=== PATIENT | female | born 1950 | race Caucasian/White ===

== ENCOUNTER 2017-12-26 19:54 | Emergency (ER) | payer MEDICARE ==
[2017-12-26 20:00] VITALS: BP 137/75; PULSE 100; TEMP 98.2; BMI 51.5
--- NOTE | 2017-12-26 21:04 | PDOC ---
History of Present Illness - General Chief Complaint: Injury Stated Complaint: FALL, REDNESS TO EYE - History of Present Illness Initial Comments: 67 year old obese female with PMH of HTM, diabetes, HLD, and arthritis presenting with left eye redness after a fall when she was walking in the bathroom with her cane and slipped on some water. States she was going to wash her hands and planted her cane on the floor on some water which caused her to slip and hit her left face/ head on the side of the metal sink. She did not lose consciousness and she was assisted up by her daughter. She noticed that there was a lot of redness in her eye so her daughter took a look and brought her to the hospital for further evaluation. She has no visual symptoms including floaters or blurriness. Does not take blood thinners. Denies fevers, chills, nausea, vomiting, diarrhea, light headedness, chest pain, palpiations, diaphoreissi, or other concerning symptoms. 12/26/17 21:02 Past History - Past Medical History Allergies/Adverse Reactions: Allergies Allergy/AdvReac Type Severity Reaction Status Date / Time No Known Allergies Allergy Verified 12/26/17 20:00 Home Medications: Ambulatory Orders Ofloxacin 0.3% Ophth Soln [Ocuflox -] 1 drop OS QID 4 Days #1 bottle 12/27/17 Asthma: Yes Cardiac Disorders: Yes (CHF) COPD: Yes Diabetes: Yes HTN: Yes Hypercholesterolemia: Yes - Suicide/Smoking/Psychosocial Hx Smoking History: Never smoked Review of Systems - Review of Systems Constitutional: No: Chills, Diaphoresis, Fever HEENTM: No: Eye Pain, Blurred Vision, Tearing, Recent change in vision, Double Vision, Cataracts Respiratory: No: Cough, Orthopnea, Shortness of Breath, Stridor Cardiac (ROS): No: Chest Pain, Edema, Irregular Heart Rate, Lightheadedness, Palpitations, Syncope, Chest Tightness ABD/GI: No: Diarrhea, Nausea, Poor Appetite : No: Burning, Dysuria, Discharge, Incontinence, Pain, Urgency Musculoskeletal: Yes: Joint Pain. No: Back Pain, Gout Integumentary: No: Erythema, Flushing, Lesions, Lumps Neurological: No: Headache, Numbness, Paresthesia, Pre-Existing Deficit, Tingling Psychiatric: No: Anxiety, Depression Endocrine: No: Intolerance to Cold, Intolerance to Heat, Increased Hunger Hematologic/Lymphatic: No: Anemia, Blood Clots, Easy Bleeding *Physical Exam - Vital Signs Last Vital Signs Temp Pulse Resp BP Pulse Ox 98.2 F 100 H 18 137/75 84 L 12/26/17 19:57 12/26/17 19:57 12/26/17 19:57 12/26/17 19:57 12/26/17 19:57 - Physical Exam General Appearance: Yes: Nourished, Appropriately Dressed. No: Apparent Distress HEENT: positive: EOMI, LOC. negative: Normal ENT Inspection (subconjuctival hemorrhage int he left eye. Visual Acutiy 20/70 bilaterally. Slit lamp examp with flourescein only significant for inferoir conreal abrasion.) Neck: positive: Trachea midline, Normal Thyroid, Supple. negative: Tender, Rigid Respiratory/Chest: positive: Lungs Clear, Normal Breath Sounds. negative: Chest Tender, Respiratory Distress, Accessory Muscle Use Cardiovascular: positive: Regular Rhythm, Regular Rate Gastrointestinal/Abdominal: positive: Normal Bowel Sounds, Flat, Soft. negative : Tender Lymphatic: negative: Adenopathy, Tenderness Musculoskeletal: positive: Normal Inspection. negative: Decreased Range of Motion Extremity: positive: Normal Capillary Refill, Normal Inspection, Normal Range of Motion. negative: Tender Integumentary: positive: Normal Color, Dry, Warm Neurologic: positive: Fully Oriented, Alert, Normal Mood/Affect, Normal Response , Motor Strength 5/5 ED Treatment Course - RADIOLOGY Radiology Studies Ordered: Category Date Time Status HEAD CT WITH CONTRAST [CT] Stat CT Scan 12/26/17 20:59 Ordered Medical Decision Making - Medical Decision Making 67 year old with subconjunctival hemorrhage and inferior corneal abrasion on slit lamp without globe rupture after falling and hitting her face/ head on a sink in the setting of a mechanical trip/ fall. Head Ct negative. Slit lamp only significant for above. Will DC with polymixin eye drops and optho follow up. DC'd with return precautions and follow up instructions. 12/27/17 00:38 *DC/Admit/Observation/Transfer Diagnosis at time of Disposition: Corneal abrasion Qualifiers: Encounter type: initial encounter Laterality: right Qualified Code(s): S05.01XA - Injury of conjunctiva and corneal abrasion without foreign body, right eye, initial encounter - Discharge Dispostion Disposition: HOME Condition at time of disposition: Improved Decision to Admit order: No - Prescriptions Prescriptions: Ofloxacin 0.3% Ophth Soln [Ocuflox -] 1 drop OS QID 4 Days #1 bottle - Referrals Referrals: Niko Morocho [Primary Care Provider] - Allan Jarquin MD [Staff Physician] - - Patient Instructions Printed Discharge Instructions: DI for Corneal Abrasion Additional Instructions: Please use the eye drops 1 drop in your left eye 4 times a day for 5 days. Please make an appointment with the workforce planner as early as possible. Please return to the ED if you have pain in that eye, visual changes, or any other concerning symptoms. The redness should get better within a week. - Post Discharge Activity
--- NOTE | 2017-12-27 01:00 | PDOC ---
Attending Attestation - Resident Resident Name: [email or web address] - ED Attending Attestation I have performed the following: I have examined & evaluated the patient, The case was reviewed & discussed with the resident, I agree w/resident's findings & plan, Exceptions are as noted - HPI HPI: 12/27/17 00:56 67-year-old female history hypertension diabetes who today status post fall. Patient states she was walking with a cane the cane slipped on water she subsequent relief fell she hit her face on the corner of a dresser happened about 4 AM she noted some left eye redness and hemorrhage denies any vision changes no nausea no vomiting no headaches she didn't want to come initially but her family convinced her to come for evaluation denies any new weakness numbness or tingling did not take anything prior to arrival - Physicial Exam PE: 12/27/17 00:58 Awake alert no acute distress left eye is noted for some conjunctival hemorrhage over majority of the visible portion of the eye pupils are regular and reactive extraocular motions are intact. Oral Brill exam shows no bony step- off or tenderness the head is otherwise atraumatic no cervical spine tenderness lungs are clear bilaterally heart demonstrates a systolic murmur 2/6 regular rate and rhythm extremities are warm and well-perfused abdomen is soft nontender and obese neurologically patient has GCS of 15 - Medical Decision Making 12/27/17 00:59 Differential diagnosis includes subconjunctival hemorrhage versus corneal abrasion patient was evaluated in the slit-lamp she was noted to have a large subconjunctival hemorrhage in the left eye there is a small punctate area in the inferior portion of the iris with foreseen uptake consistent with a corneal abrasion otherwise her exam is atraumatic we will obtain a CT head to rule out any intracranial injuries CT head was negative will DC home with Polytrim eyedrops and ophthalmology follow-up as needed patient states her last tetanus was 2 years ago
== END 2017-12-27 02:00 | disposition home or self-care (01) ==
LOC: JER 19:54
DX: S05.01XA Injury of conjunctiva and corneal abrasion without foreign body, right eye, initial encounter (principal); W01.0XXA Fall on same level from slipping, tripping and stumbling without subsequent striking against object, initial encounter; Y93.89 Activity, other specified; Y92.031 Bathroom in apartment as the place of occurrence of the external cause; Y99.8 Other external cause status; I10 Essential (primary) hypertension; E11.9 Type 2 diabetes mellitus without complications; E78.5 Hyperlipidemia, unspecified; M12.9 Arthropathy, unspecified
CPT/HCPCS: 70450-TC; 99281-25

== ENCOUNTER 2018-03-27 19:41 | Inpatient (IN) | payer MEDICARE, OTHER ==
--- NOTE | 2018-03-27 19:48 | PDOC ---
Attending Attestation - HPI HPI: 03/27/18 20:01 The patient is a 67-year-old female with a past medical history of asthma, CHF, COPD, HTN, DM, and HLD presenting with shortness of breath and bilateral pitting edema for the past 2 days. Patient is on 20 of Lasix PO daily, but admits to being noncompliant with her meds. Patient also admits to not following up with her PCP. Patient denies chest pain, palpitations, dizziness, headache, vision changes, numbness/weakness/tingling in her extremities, N/V/D, or urinary symptoms. Allergies: NKDA Surgeries: None reported Social Hx: No reported alcohol, drug or cigarette use. - Physicial Exam PE: 03/27/18 22:25 ADULT EXAM GENERAL: Awake, alert, and fully oriented, afebrile. (+) morbidly obese. (+) somnolent. on BiPAP. HEAD: No signs of trauma EYES: PERRLA, EOMI, sclera anicteric, conjunctiva clear ENT: Auricles normal inspection, hearing grossly normal, nares patent, oropharynx clear without exudates. (+) Dry mucosa. NECK: Normal ROM, supple, no lymphadenopathy, JVD, or masses LUNGS: (+) patchy wheezing at the top. HEART: Regular rate and rhythm, normal S1 and S2, no murmurs, rubs or gallops ABDOMEN: Soft, nontender, normoactive bowel sounds. No guarding, no rebound. No masses EXTREMITIES: (+) 4+ pitting edema up to the thighs bilaterally. NEUROLOGICAL: (+) altered mental status. SKIN: Warm, Dry, normal turgor. <Zuleyma Matute - Last Filed: 03/27/18 22:35> - Resident Resident Name: Julianna Moran - ED Attending Attestation I have performed the following: I have examined & evaluated the patient, The case was reviewed & discussed with the resident, I agree w/resident's findings & plan - HPI HPI: 03/27/18 19:48 SOB - Critical Care Time Total Critical Care Time: 60 Critical Care Statement: The care of this patient involved high complexity decision making to prevent further life threatening deterioration of the patient 's condition and/or to evaluate & treat vital organ system(s) failure or risk of failure. - Medical Decision Making 03/27/18 22:32 Pt is altered mental status; decreased mentation secondary to SOB and hypoxia. She comea originally with a blood pH of 7.18; she has a hx of COPD and morbid obesity. Her son tells me that she refuses to use her cpap; however, he doesn't live with her; she lives with an aide. She has been looking unwell progressively since last week. Son decided to bring her in today via ambulance, as she is SOB and altered. <Funmi Abdullahi - Last Filed: 03/28/18 04:32> Procedures - Intubation Intubation Method: orotracheal Blade used: Glidescope Tube Size (Fr): 7.5 Medications: Etomidate, Ketamine Tube position @ lip (cm): 22 Tube position confirmed by: Direct visualization, CO2 detector, Chest x-ray, Breath sounds Breath Sounds after Intubation: equal Intubation Complications: no complications Post Intubation Xray: Yes <Funmi Abdullahi - Last Filed: 03/28/18 04:32>
--- NOTE | 2018-03-27 19:55 | PDOC ---
History of Present Illness - General Stated Complaint: S.O.B Time Seen by Provider: 03/27/18 19:47 History Source: Patient Exam Limitations: No Limitations - History of Present Illness Initial Comments: 03/27/18 19:58 67YOF with h/o CHF on Lasix 20 mg PO daily and O2 prn at home, COPD, morbid obesity, LEONIDES on CPAP, IDDM, HTN, HLD; p/w SOB, leg swelling, and feeling of fluid in her lungs in the setting of nonadherence to her Lasix and other medications. She has been feeling this way increasingly over the past 2 weeks, saw her PCP shortly after the onset of sxs, was given amoxicillin Rx which she took for 3 days about a week ago without improvement. The son notes this has happened multiple times before and always seems happen when she stops taking her medications (she stops because she does not like getting up to urinate). Denies f/c/n/v/d/c, CP, AP, n/t/w, lightheadedness, REYES, or other symptoms. Past History - Past Medical History Allergies/Adverse Reactions: Allergies Allergy/AdvReac Type Severity Reaction Status Date / Time No Known Allergies Allergy Verified 03/27/18 19:54 Home Medications: Ambulatory Orders Ofloxacin 0.3% Ophth Soln [Ocuflox -] 1 drop OS QID 4 Days #1 bottle 12/27/17 Albuterol Sulfate Inhaler - [Ventolin Hfa Inhaler -] 2 inh PO Q4H PRN 03/27/18 Atorvastatin Ca [Lipitor] 20 mg PO HS 03/27/18 Fluticasone/Salmeterol [Advair 250-50 Diskus] 1 each IH BID 03/27/18 Furosemide [Lasix] 20 mg PO DAILY 03/27/18 Insulin Glargine,Hum.rec.anlog [Basaglar Kwikpen U-100] 20 unit SQ DAILY Losartan Potassium 25 mg PO DAILY 03/27/18 metFORMIN HCL [Metformin HCl] 500 mg PO HS 03/27/18 Asthma: Yes Cardiac Disorders: Yes (CHF) COPD: Yes Diabetes: Yes HTN: Yes Hypercholesterolemia: Yes - Immunization History Immunization Up to Date: Yes - Suicide/Smoking/Psychosocial Hx Smoking History: Never smoked Review of Systems - Review of Systems Able to Perform ROS?: Yes Comments:: 03/27/18 20:03 GEN: no fever, chills, malaise, or generalized weakness HEENT: no ear pain, sore throat, vision change, or eye pain CV: edema, no chest pain, palpitations, lightheadedness, or syncope RESP: cough, wheezing, SOB GI: no abdominal pain, nausea, vomiting, diarrhea, constipation, or white/black/ bloody stool : no dysuria, hematuria, incontinence, retention, bleeding, or discharge MSK: no neck/back pain, muscle weakness/pain, or joint swelling/pain NEURO: no headache, seizure, vertigo, numbness, tingling, or focal weakness PSYCH: no substance use, no behavior change SKIN: no jaundice, no rash ROS otherwise negative except as noted in HPI *Physical Exam - Vital Signs Initial Vital Signs Pulse Resp BP Pulse Ox 121 H 30 H 140/62 75 L 03/27/18 19:51 03/27/18 19:51 03/27/18 19:51 03/27/18 19:51 - Physical Exam Comments: 03/27/18 20:04 GENERAL: alert, on non-rebreather, tachypneic, speaking in 2-3 word sentences, family at bedside, morbid obesity noted, mild distress, answers questions appropriately HEENT: PERRLA, EOMI, moist mucous membranes NECK/BACK: no midline ttp, no spinal stepoff or deformity, no hematoma, full ROM , neck supple CARDIOVASCULAR: rapid regular rhythm, normal S1S2, no MGR, strong peripheral pulses, capillary refill <2 seconds, extremities wwp, 2+ pitting edema BLE LUNGS/RESPIRATORY: mild-moderate respiratory distress, diffuse bilateral crackles, mild bilateral expiratory wheezes and rhonchi, mildly decreased breath sounds, on non-rebreather GI/ABDOMEN: symmetric [id number], normoactive BS, soft, no ttp, no midline pulsatile masses : no CVA tenderness EXTREMITIES: no muscle atrophy, no acute deformity, 2+ pitting edema BLE SKIN: BLE lipodermatosclerosis, warm and dry, no pallor, no jaundice, no rash, no bruising, no skin breakdown, no cuts, no lesions NEUROLOGICAL: GCS 15, CN II-XII grossly intact, 5/5 strength proximally and distally, no facial droop Procedures - Intubation Intubation Method: orotracheal Blade used: Glidescope Tube Size (Fr): 7.5 Medications: Etomidate, Succinylcholine Tube position @ lip (cm): 22 (at the teeth) Tube position confirmed by: Direct visualization, CO2 detector, Chest x-ray, Breath sounds Breath Sounds after Intubation: equal Intubation Complications: no complications Post Intubation Xray: Yes Progress/Xray Impression: good position Heart Score/ECG Review #1 Sinus tach, rate 107, normal axis and intervals, biatrial enlargement, no new ischemic ST-T changes. ED Treatment Course - LABORATORY CBC & Chemistry Diagram: 04/03/18 06:30 04/03/18 06:30 Medical Decision Making - Critical Care Time Total Critical Care Time (minutes): 90 Critical Care Statement: The care of this patient involved high complexity decision making to prevent further life threatening deterioration of the patient 's condition and/or to evaluate & treat vital organ system(s) failure or risk of failure. - Medical Decision Making 03/27/18 20:02 Pt with h/o CHF who p/w SOB, cough, orthopnea same as their prior CHF. Initial Vital Signs Pulse Resp BP Pulse Ox 121 H 30 H 140/62 75 L 03/27/18 19:51 03/27/18 19:51 03/27/18 19:51 03/27/18 19:51 Exam: As noted in Physical Exam section. DDX IBNLT: Most likely CHF exacerbation given crackles on lung auscultation. Also likely COPD component given wheezing. Less likely but still considered are flash pulmonary edema, asthma, other lung disease, PNA/bronchitis, anemia, ACS, pericarditis, tamponade, AD, PE, PTX, allergic reaction, malignancy (e.g. causing pericardial effusion or vascular shunt), other infection, pulmonary HTN , etc. W/U ordered: CBCD CMP Mg Phos Troponin CK CKMB BNP Blood Gas UA UCx EKG CXR TX ordered: DuoNebx1, BiPAP Lasix IV push, O2, BiPAP, Pt positioned with head of bed up EKG: Reviewed; results as noted in ECG Review section. CXR: Pulmonary vascular congestion, possible right sided consolidation Laboratory Tests 03/27/18 03/27/18 03/27/18 21:37 21:37 21:37 WBC 13.1 H RBC 5.52 H Hgb 14.9 Hct 46.9 H MCV 85.1 MCH 27.0 MCHC 31.7 L RDW 18.1 H Plt Count 270 MPV 9.1 Absolute Neuts (auto) 11.1 H Neutrophils % 84.8 H Lymphocytes % 5.1 L Monocytes % 9.6 Eosinophils % 0.0 Basophils % 0.5 Nucleated RBC % 0 Platelet Estimate Adequate Platelet Comment Anticoagulation Therapy Puncture Site ABG pH ABG pCO2 at Pt Temp ABG pO2 at Pt Temp ABG HCO3 ABG O2 Sat (Measured) ABG O2 Content ABG Base Excess Dwayne Test VBG pH 7.18 L* POC VBG pCO2 100.0 H* POC VBG pO2 35.4 Mixed VBG HCO3 35.5 H O2 Delivery Device Oxygen Flow Rate Vent Mode Vent Rate Mechanical Rate Pressure Support Vent Sodium 139 Potassium 4.7 Chloride 100 Carbon Dioxide 34 H Anion Gap 6 L BUN 25 H Creatinine 1.3 Creat Clearance w eGFR 41.11 Random Glucose 148 H Calcium 8.8 Phosphorus 5.6 H Magnesium 1.8 Total Bilirubin 0.6 AST 68 H ALT 61 Alkaline Phosphatase 155 H Creatine Kinase 264 H Creatine Kinase Index 1.4 CK-MB (CK-2) 3.8 H B-Natriuretic Peptide 45433.8 H Total Protein 8.6 H Albumin 3.1 L Urine Color Urine Appearance Urine pH Ur Specific [place] Urine Protein Urine Glucose (UA) Urine Ketones Urine Blood Urine Nitrite Urine Bilirubin Urine Urobilinogen Ur Leukocyte Esterase Urine WBC (Auto) Urine RBC (Auto) Ur Epithelial Cells Urine Bacteria Hyaline Casts Urine Mucus 03/27/18 03/27/18 03/27/18 21:43 22:30 23:30 WBC RBC Hgb Hct MCV MCH MCHC RDW Plt Count MPV Absolute Neuts (auto) Neutrophils % Lymphocytes % Monocytes % Eosinophils % Basophils % Nucleated RBC % Platelet Estimate Platelet Comment Anticoagulation Therapy No Result Required. Puncture Site Right radial ABG pH 7.20 L* ABG pCO2 at Pt Temp 86.7 H* ABG pO2 at Pt Temp 68.6 L ABG HCO3 32.8 H ABG O2 Sat (Measured) 87.4 L ABG O2 Content 17.6 ABG Base Excess 1.8 Dwayne Test Positive VBG pH 7.17 L* POC VBG pCO2 97.4 H* POC VBG pO2 45.9 D Mixed VBG HCO3 33.8 H O2 Delivery Device Bipap Oxygen Flow Rate 50% Vent Mode No Result Required. Vent Rate 16 Mechanical Rate No Result Required. Pressure Support Vent No Result Required. Sodium Potassium Chloride Carbon Dioxide Anion Gap BUN Creatinine Creat Clearance w eGFR Random Glucose Calcium Phosphorus Magnesium Total Bilirubin AST ALT Alkaline Phosphatase Creatine Kinase Creatine Kinase Index CK-MB (CK-2) B-Natriuretic Peptide Total Protein Albumin Urine Color Cyndie Urine Appearance Cloudy Urine pH 5.0 Ur Specific [place] 1.018 Urine Protein 2+ H Urine Glucose (UA) Negative Urine Ketones Negative Urine Blood 2+ H Urine Nitrite Negative Urine Bilirubin Negative Urine Urobilinogen 2.0 H Ur Leukocyte Esterase Trace Urine WBC (Auto) 10 Urine RBC (Auto) 1 Ur Epithelial Cells Rare Urine Bacteria Rare Hyaline Casts 15 Urine Mucus Rare Trop still pending and I have called lab; they will prioritize it. Reassessment: Patient sleeping but arousable, crackles persist, tolerating BIPAP well. VBG pH decreased slightly but CO2 improving slowly. 03/28/18 00:28 The Pt is unsafe for discharge at this time. They require further hospital observation, workup, and treatment. I spoke with ICU; patient accepted, consult order placed to Dr. Paige. We have agreed to intubate the patient in the ED as she remains obtunded, worse than on presentation. She is not appropriate for continued BiPAP. [facility] sent to [facility] for admission. Blank Decision to Admit order is placed per ED protocol. 03/28/18 01:17 Patient awakening and fighting the tube. I have spoke with Dr. Abdullahi; we have decided to order 80 mg rocuronium which is pushed with relief. Her BP is 104/63, I am removing the NTG paste. HR is 104 and O2 sat is 90% on FiO2 of 50. Vital Signs Temperature Pulse Rate 92 H 03/28/18 01:59 Respiratory Rate 18 03/28/18 01:59 Blood Pressure 104/63 03/28/18 01:59 O2 Sat by Pulse Oximetry (%) 89 L 03/28/18 02:00 03/28/18 02:08 Patient continues to maintain adequate BP. Will place second PIV (18G this time) versus CVC. *DC/Admit/Observation/Transfer Diagnosis at time of Disposition: COPD exacerbation CHF exacerbation Qualifiers: Heart failure type: unspecified Qualified Code(s): I50.9 - Heart failure, unspecified Respiratory failure Qualifiers: Chronicity: unspecified Respiratory failure complication: hypoxia and hypercapnia Qualified Code(s): J96.91 - Respiratory failure, unspecified with hypoxia - Discharge Dispostion Condition at time of disposition: Guarded Decision to Admit order: Yes - Referrals - Patient Instructions - Post Discharge Activity
[2018-03-27] MEDS ORDERED: ALBUTEROL SO4 2.5/IPRATROPIUM 0.5 INH SOL 3 ML VIAL.NEB. NEB ONE ×2 (19:56→20:36)
[2018-03-27] MEDS ORDERED: FUROSEMIDE 40 MG/4 ML INJECTABLE VIAL IVPUSH ONE (19:56)
[2018-03-27] MEDS ORDERED: FUROSEMIDE 40 MG/4 ML INJECTABLE VIAL ONE (20:36)
[2018-03-27 21:46] LABS: BASO % 0.5 % (0-2.0); HEMATOCRIT 46.9 % (32.4-45.2); HEMOGLOBIN 14.9 GM/dL (10.7-15.3); LYMPH % 5.1 % (8-40); MCHC 31.7 g/dl (32.0-36.0); MEAN CELL VOLUME 85.1 fl (80-96); MEAN PLT VOLUME 9.1 fl (7.5-11.1); MONO % 9.6 % (3.8-10.2); NEUT % 84.8 % (42.8-82.8); PLATELET COUNT 270 K/MM3 (134-434); RBC 5.52 M/mm3 (3.60-5.2); RDW 18.1 % (11.6-15.6); WHITE BLOOD COUNT 13.1 K/mm3 (4.0-10.0)
[2018-03-27 21:48] LABS: VENOUS PO2 35.4 mmHg (28-48)
[2018-03-27 21:50] LABS: VENOUS PH 7.18 (7.32-7.42)
[2018-03-27 22:13] LABS: ALBUMIN 3.1 g/dl (3.4-5.0); ALK PHOS 155 U/L (45-117); ANION GAP 6 MMOL/L (8-16); BILIRUBIN,TOTAL 0.6 mg/dL (0.2-1); BLOOD UREA NITROGEN 25 mg/dL (7-18); CALCIUM 8.8 mg/dL (8.5-10.1); CHLORIDE 100 mmol/L (98-107); CO2 34 mmol/L (21-32); CREATININE 1.3 mg/dL (0.55-1.3); GLUCOSE,RANDOM 148 mg/dL (74-106); MAGNESIUM 1.8 mg/dL (1.8-2.4); N-TERMINAL BNP 10603.8 pg/ml (5-125); PHOSPHOROUS 5.6 mg/dL (2.5-4.9); POTASSIUM 4.7 mmol/L (3.5-5.1); SGOT/AST 68 U/L (15-37); SGPT/ALT 61 U/L (13-61); SODIUM 139 mmol/L (136-145); TOT PROT 8.6 g/dl (6.4-8.2)
[2018-03-27] MEDS ORDERED: SODIUM CHLORIDE 0.9% 500 ML INFUS.BAG IV ONE (22:26)
[2018-03-27] MEDS ORDERED: MAGNESIUM SULF 50% (8.12 MEQ/2 ML-1 GM VIAL) IVPB ONE (22:27)
[2018-03-27 22:35] LABS: ARTERIAL BLD GAS O2 SATURATION 87.4 % (90-98.9); ARTERIAL BLOOD GAS BASE EXCESS 1.8 meq/l (-2-2)
[2018-03-27 22:36] LABS: ALLENS TEST POSITIVE
[2018-03-27] MEDS ORDERED: MAGNESIUM 1GM/D5W - 1 GM/100 ML IVPB IVPB ONE (22:39)
[2018-03-27 22:40] LABS: ARTERIAL BLOOD GAS PCO2 86.7 mmHg (35-45); ARTERIAL BLOOD GAS PO2 68.6 mmHg (80-100)
[2018-03-27] MEDS ORDERED: PIPERACILLIN/TAZOB 3.375 GM 3.375 GM in DEXTROSE 5%-WATER - 50 ML IVPB ONE (23:34)
[2018-03-27 23:43] LABS: URINE APPEARANCE CLOUDY; URINE BILIRUBIN NEGATIVE (<2.0 mg/dL); URINE COLOR AMBER; URINE GLUCOSE (UA) NEGATIVE (NEGATIVE); URINE KETONE NEGATIVE (NEGATIVE); URINE LEUK ESTERASE TRACE (NEGATIVE); URINE NITRITE NEGATIVE (NEGATIVE); URINE PROTEIN 2+ (NEGATIVE)
[2018-03-27 23:48] LABS: PLATELET ESTIMATE ADEQUATE
[2018-03-27 23:50] LABS: VENOUS PC02 97.4 mmHg (38-52); VENOUS PH 7.17 (7.32-7.42); VENOUS PO2 45.9 mmHg (28-48)
[2018-03-27 23:54] LABS: EPI CELLS RARE /HPF (FEW); URINE BACTERIA RARE /hpf (NONE SEEN); URINE HYALINE CAST 15 /lpf; URINE MUCUS RARE
[2018-03-28] MEDS ORDERED: PIPERACILLIN/TAZOB 3.375 GM 3.375 GM/50 ML BAG IVPB ONE (00:03)
[2018-03-28] MEDS ORDERED: SODIUM CHLORIDE 0.9% 500 ML INFUS.BAG IV ONE ×2 (00:03→01:19)
[2018-03-28] MEDS ORDERED: NITROGLYCERIN 2% OINTMENT - 1GM PACKET TD ONE ×2 (00:05→00:06)
[2018-03-28] MEDS ORDERED: FUROSEMIDE 40 MG/4 ML INJECTABLE VIAL ONE ×2 (00:06→01:47)
[2018-03-28] MEDS ORDERED: FUROSEMIDE 40 MG/4 ML INJECTABLE VIAL IVPB ONE (00:47)
[2018-03-28] MEDS ORDERED: RAPID SEQUENCE INTUBATION KIT NR ONE (00:50)
[2018-03-28] MEDS ORDERED: methylPREDNISolone NA SUCC 125 MG/2 ML VIAL IVPUSH ONE (00:51)
[2018-03-28] MEDS ORDERED: ALBUTEROL SO4 0.083% IH SOL 2.5 MG/3 ML VIAL.NEB. NEB PRN (00:54)
[2018-03-28] MEDS ORDERED: VANCOMYCIN 1 GM in D5W (PRE-DOCKED) 1,000 MG/250 ML IVPB ONE (01:00)
[2018-03-28] MEDS ORDERED: ROCURONIUM BROMIDE 50 MG/5 ML VIAL IV ONE (01:15)
[2018-03-28] MEDS ORDERED: MIDAZOLAM 100 MG in SODIUM CHLORIDE 100 ML IVPB SCH (01:30)
--- NOTE | 2018-03-28 01:31 | CONSULT ---
Consultation: REQUESTING PROVIDER: Stas Randall MD CONSULT REQUEST: We have been asked to medically evaluate this patient for CHF exacerbation. HISTORY OF PRESENT ILLNESS: Patient is a 67 y/o F w/ PMHx CHF, COPD on home O2, LEONIDES on CPAP, IDDM, morbid obesity, HTN, HLD, non-compliance with diuretics d/t not wishing to have to get up to urinate per family, p/w 2 weeks worsening SOB, leg swelling, "feeling fluid" in her lungs. Reportedly 1 week ago presented to her PCP and was prescribed outpatient amoxicillin with no improvement. On presentation, the patient is obtunded, all history provided by family. Reportedly is fully oriented, conversant, and ambulatory at baseline. Initial ABG shows significant respiratory acidosis pH 7.2/PaCO2 86.7, baseline PaCO2 unknown. Afebrile, tachycardic, stable blood pressures on presentation. Initial labs significant for WBC 13.1 CXR showing pronounced pulmonary congestion, possible b/l infiltrate. Placed on BiPAP initially in ED, saturating ~88-90%. Given IV Lasix 40 x 2, duonebs, Mg, Zosyn, nitro paste in ED. REVIEW OF SYSTEMS: As per HPI PHYSICAL EXAMINATION Vital Signs - 24 hr 03/27/18 03/27/18 03/27/18 19:51 21:10 23:00 Pulse Rate 121 H Pulse Rate [ Left Radial] Respiratory 30 H Rate Blood Pressure 140/62 Blood Pressure [Right Arm] O2 Sat by Pulse 75 L 89 L 95 Oximetry (%) 03/28/18 03/28/18 00:20 00:33 Pulse Rate Pulse Rate [ 97 H 99 H Left Radial] Respiratory 32 H 32 H Rate Blood Pressure Blood Pressure 147/72 124/75 [Right Arm] O2 Sat by Pulse 92 L Oximetry (%) GENERAL: Obtunded woman appearing to be in some distress when aroused HEAD: NC/AT EYES: PERRL EARS, NOSE, THROAT: MMM NECK: Supple, +JVD above angle of mandible LUNGS: Profound rales anteriorly, posterior lewis could not be accessed HEART: Tachycardic, limited auscultation d/t body habitus and positioning ABDOMEN: soft, obese, could not appreciate bowel sounds, no pain response to deep palpation EXTREMITIES: Profound pedal edema b/l, venous stasis NEUROLOGICAL: limited exam, alerts to sternal rub SKIN: Warm, dry, normal turgor Laboratory Results - last 24 hr 03/27/18 03/27/18 03/27/18 21:37 21:37 21:37 WBC 13.1 H RBC 5.52 H Hgb 14.9 Hct 46.9 H MCV 85.1 MCH 27.0 MCHC 31.7 L RDW 18.1 H Plt Count 270 MPV 9.1 Absolute Neuts (auto) 11.1 H Neutrophils % 84.8 H Lymphocytes % 5.1 L Monocytes % 9.6 Eosinophils % 0.0 Basophils % 0.5 Nucleated RBC % 0 Platelet Estimate Adequate Platelet Comment Anticoagulation Therapy Puncture Site ABG pH ABG pCO2 at Pt Temp ABG pO2 at Pt Temp ABG HCO3 ABG O2 Sat (Measured) ABG O2 Content ABG Base Excess Dwayne Test VBG pH 7.18 L* POC VBG pCO2 100.0 H* POC VBG pO2 35.4 Mixed VBG HCO3 35.5 H O2 Delivery Device Oxygen Flow Rate Vent Mode Vent Rate Mechanical Rate Pressure Support Vent Sodium 139 Potassium 4.7 Chloride 100 Carbon Dioxide 34 H Anion Gap 6 L BUN 25 H Creatinine 1.3 Creat Clearance w eGFR 41.11 Random Glucose 148 H Calcium 8.8 Phosphorus 5.6 H Magnesium 1.8 Total Bilirubin 0.6 AST 68 H ALT 61 Alkaline Phosphatase 155 H Creatine Kinase 264 H Creatine Kinase Index 1.4 CK-MB (CK-2) 3.8 H B-Natriuretic Peptide 70166.8 H Total Protein 8.6 H Albumin 3.1 L Urine Color Urine Appearance Urine pH Ur Specific [place] Urine Protein Urine Glucose (UA) Urine Ketones Urine Blood Urine Nitrite Urine Bilirubin Urine Urobilinogen Ur Leukocyte Esterase Urine WBC (Auto) Urine RBC (Auto) Ur Epithelial Cells Urine Bacteria Hyaline Casts Urine Mucus 03/27/18 03/27/18 03/27/18 21:43 22:30 23:30 WBC RBC Hgb Hct MCV MCH MCHC RDW Plt Count MPV Absolute Neuts (auto) Neutrophils % Lymphocytes % Monocytes % Eosinophils % Basophils % Nucleated RBC % Platelet Estimate Platelet Comment Anticoagulation Therapy No Result Required. Puncture Site Right radial ABG pH 7.20 L* ABG pCO2 at Pt Temp 86.7 H* ABG pO2 at Pt Temp 68.6 L ABG HCO3 32.8 H ABG O2 Sat (Measured) 87.4 L ABG O2 Content 17.6 ABG Base Excess 1.8 Dwayne Test Positive VBG pH 7.17 L* POC VBG pCO2 97.4 H* POC VBG pO2 45.9 D Mixed VBG HCO3 33.8 H O2 Delivery Device Bipap Oxygen Flow Rate 50% Vent Mode No Result Required. Vent Rate 16 Mechanical Rate No Result Required. Pressure Support Vent No Result Required. Sodium Potassium Chloride Carbon Dioxide Anion Gap BUN Creatinine Creat Clearance w eGFR Random Glucose Calcium Phosphorus Magnesium Total Bilirubin AST ALT Alkaline Phosphatase Creatine Kinase Creatine Kinase Index CK-MB (CK-2) B-Natriuretic Peptide Total Protein Albumin Urine Color Cyndie Urine Appearance Cloudy Urine pH 5.0 Ur Specific [place] 1.018 Urine Protein 2+ H Urine Glucose (UA) Negative Urine Ketones Negative Urine Blood 2+ H Urine Nitrite Negative Urine Bilirubin Negative Urine Urobilinogen 2.0 H Ur Leukocyte Esterase Trace Urine WBC (Auto) 10 Urine RBC (Auto) 1 Ur Epithelial Cells Rare Urine Bacteria Rare Hyaline Casts 15 Urine Mucus Rare Active Medications Generic Name Dose Route Start Last Admin Trade Name Freq PRN Reason Stop Dose Admin Albuterol Sulfate 1 amp 03/28/18 00:54 Ventolin 0.083% Nebulizer Soln - NEB Q4H PRN SHORT OF BREATH/WHEEZING Albuterol/Ipratropium 1 amp 03/28/18 10:00 Duoneb - NEB QID [facility] Chlorhexidine Gluconate 1 applic 03/28/18 22:00 Hibiclens For Decolonization - TP HS DONTA Furosemide 120 mg 03/28/18 00:47 Lasix Injection - IVPB 03/28/18 00:48 ONCE ONE Heparin Sodium (Porcine) 5,000 unit 03/28/18 06:00 Heparin - SQ TID [facility] Insulin Aspart 1 vial 03/28/18 07:00 Novolog Vial Sliding Scale - SQ ACHS [facility] Protocol Methylprednisolone Sodium Succinate 125 mg 03/28/18 00:51 Solu-Medrol - IVPUSH 03/28/18 00:52 ONCE ONE Methylprednisolone Sodium Succinate 60 mg 03/28/18 10:00 Solu-Medrol - IVPUSH Q8H [facility] Mupirocin 1 applic 03/28/18 10:00 Bactroban Ointment (For Decolonization) - NS 04/02/18 09:59 BID [facility] Vancomycin HCl 1,000 mg 03/28/18 22:00 Vancomycin (Pre-Docked) IVPB HS [facility] Protocol Vancomycin HCl 1,000 mg 03/28/18 01:00 Vancomycin (Pre-Docked) IVPB 03/28/18 01:01 ONCE ONE Protocol ASSESSMENT/PLAN: 67 y/o F w/ PMHx CHF, COPD on home O2, LEONIDES on CPAP, IDDM, morbid obesity, HTN, HLD, presents in acute hypercapneic respiratory failure and acute CHF exacerbation 2/2 reported medication non-adherence, possible superimposed CAP. #pulmonary -cannot safely be maintained on NIPPV given mental status -to be intubated in ED prior to transfer to ICU -sedation w/ Versed/Fentanyl -methylprednisolone bolus followed by 60 q8h -bronchodilators standing and PRN -symbicort -repeat ABG #CV -bolus Lasix 120 IV -will reassess further need for diuretic pushes vs continuous infusion -strict Is & Os -daily weights -koenig in place -repeat CXR -echo ordered -cardiology consulted #ID -given Zosyn in ED -cont Zosyn, initiated Vancomycin -ID consulted #nephrology -Cr 1.3, making urine, no acute issues at this time #FEN -no IVF -monitor and correct electrolytes -NPO at this time #PPx -DVT: heparin subq -GI: IV PTX #code -full code at this time, son is decision-maker, need to clarify patient's wishes regarding GOC #Dispo: We will continue to follow the patient in the ICU. Thank you for this consultative opportunity. Visit type - Emergency Visit Emergency Visit: Yes Care time: The patient presented to the Emergency Department on the above date and was hospitalized for further evaluation of their emergent condition. - New Patient This patient is new to me today: Yes Date on this admission: 03/28/18 - Critical Care Critical Care patient: Yes Total Critical Care Time (in minutes): 40 Critical Care Statement: The care of this patient involved high complexity decision making to prevent further life threatening deterioration of the patient 's condition and/or to evaluate & treat vital organ system(s) failure or risk of failure.
[2018-03-28] MEDS: BUDESONIDE/FORMETEROL FUMARATE 160/4.5 mcg INHALER IH SCH ×3 (01:32→22:56)
[2018-03-28] MEDS ORDERED: PANTOPRAZOLE SODIUM 40 MG VIAL ONE (01:41)
[2018-03-28] MEDS ORDERED: methylPREDNISolone NA SUCC 125 MG/2 ML VIAL ONE (01:41)
[2018-03-28] MEDS ORDERED: VANCOMYCIN 1 GRAM (PRE-DOCKED) 1,000 MG/250 ML BAG IVPB ONE (01:46)
[2018-03-28] MEDS: PANTOPRAZOLE SODIUM 40 MG VIAL IVPUSH SCH ×2 (01:58→09:43)
[2018-03-28] MEDS ORDERED: fentaNYL CITRATE 250 MCG/5 ML VIAL ONE ×3 (02:37→17:10)
[2018-03-28 02:41] LABS: CARBOXYHEMOGLOBIN 1.3 gm% (0.5-2.0)
[2018-03-28] MEDS ORDERED: MIDAZOLAM 100 MG/100 ML MG IVPB ONE (02:44)
[2018-03-28] MEDS: FENTANYL INJECTION 500 MCG in DEXTROSE 5%-WATER - 90 ML IVPB SCH (02:53)
--- NOTE | 2018-03-28 03:16 | PN ---
Teaching Attending Note Name of Resident: Joyce Espinoza ATTENDING PHYSICIAN STATEMENT I saw and evaluated the patient. I reviewed the resident's note and discussed the case with the resident. I agree with the resident's findings and plan as documented. SUBJECTIVE: Patient 67 year old woman with PMH of CHF on Lasix 20 mg PO daily and O2 prn at home, COPD, morbid obesity, LEONIDES on CPAP, IDDM, HTN, and HLD presents with SOB, leg swelling, and feeling of fluid in her lungs in the setting of nonadherence to her lasix and other medications. She has been feeling this way increasingly over the past 2 weeks, saw her PCP shortly after the onset of symptoms and was given amoxicillin which she took for 3 days about a week ago without improvement. The son notes this has happened multiple times before and always seems happen when she stops taking her medications (she stops because she does not like getting up to urinate). Denies fever, chills, nausea, vomiting, chest pain or lightheadedness. Patient was started on BIPAP in the ER but with no improvement in respiratory function and emerging lethargy, she was intubated. She got lasix 120 mg IV stat after poor response to lasix 40 mg IV x 2. Bronchodilators as well as solumedrol was given. OBJECTIVE: Lethargic: morbidly obese Vital Signs Period Temp Pulse Resp BP Sys/Garner Pulse Ox Last 24 Hr 92-121 18-38 104-158/62-98 75-99 HEENT: No Jaundice, eye redness or discharge, PERRLA, EOMI. Normocephalic, atraumatic. External ears are normal and hearing is grossly intact. No nasal discharge. Neck: Supple, nontender. No palpable adenopathy or thyromegaly. No JVD Chest: Good effort. Diffuse crackles, prolonged expiration and wheezing. Clear to auscultation and percussion. Heart: Regular. No S3, rub or murmur Abdomen: Not distended, soft, nontender and no HSM. No rebound or guarding. Normoactive bowel sounds. Ext: Peripheral pulses intact. Leg edema. Skin: Warm and dry. No petechiae, rash or ecchymosis. Neuro: Lethargic but arousable. Oriented to person. Right hand tremors. CN 2-12 grossly intact. Sensation grossly intact in all four extremities and DTR are symmetric. Current Medications Generic Name Dose Route Start Last Admin Trade Name Freq PRN Reason Stop Dose Admin Albuterol Sulfate 1 amp 03/28/18 00:54 Ventolin 0.083% Nebulizer Soln - NEB Q4H PRN SHORT OF BREATH/WHEEZING Albuterol/Ipratropium 1 amp 03/28/18 08:00 Duoneb - NEB RQID [facility] Budesonide/Formoterol Fumarate 2 puff 03/28/18 01:00 03/28/18 01:32 Symbicort 160/4.5mcg - IH Not Given BID [facility] Chlorhexidine Gluconate 1 applic 03/28/18 22:00 Hibiclens For Decolonization - TP HS [facility] Heparin Sodium (Porcine) 5,000 unit 03/28/18 06:00 Heparin - SQ TID [facility] Fentanyl 500 mcg/ Dextrose 100 mls @ 10 mls/hr 03/28/18 01:30 03/28/18 02:53 IVPB 50 mcg/hr TITR DONTA 10 mls/hr Administration 50 MCG/HR Midazolam HCl 100 mg/ Sodium 100 mls @ 2 mls/hr 03/28/18 01:30 03/28/18 02:53 Chloride IVPB 2 mg/hr TITR DONTA 2 mls/hr Administration Protocol 2 MG/HR Piperacillin Sod/Tazobactam 50 mls @ 100 mls/hr 03/28/18 18:00 Sod 3.375 gm/ Dextrose IVPB Q8H-IV [facility] Protocol Piperacillin Sod/Tazobactam 50 mls @ 100 mls/hr 03/28/18 08:00 Sod 3.375 gm/ Dextrose IVPB 03/28/18 08:29 ONCE ONE Protocol Insulin Aspart 1 vial 03/28/18 07:00 Novolog Vial Sliding Scale - SQ ACHS [facility] Protocol Methylprednisolone Sodium Succinate 60 mg 03/28/18 10:00 Solu-Medrol - IVPUSH Q8H-IV [facility] Mupirocin 1 applic 03/28/18 10:00 Bactroban Ointment (For Decolonization) - NS 04/02/18 09:59 BID [facility] Pantoprazole Sodium 40 mg 03/28/18 01:29 03/28/18 01:58 Protonix Iv IVPUSH 40 mg DAILY [facility] Administration Vancomycin HCl 1,000 mg 03/28/18 22:00 Vancomycin (Pre-Docked) IVPB [facility] Protocol Home Medications Medication Instructions Recorded Ofloxacin 0.3% Ophth Soln [Ocuflox 1 drop OS QID 4 Days #1 bottle 12/27/17 -] Albuterol Sulfate Inhaler - 2 inh PO Q4H PRN 03/27/18 [Ventolin Hfa Inhaler -] Atorvastatin Ca [Lipitor] 20 mg PO HS 03/27/18 Fluticasone/Salmeterol [Advair 1 each IH BID 03/27/18 250-50 Diskus] Furosemide [Lasix] 20 mg PO DAILY 03/27/18 Insulin Glargine,Hum.rec.anlog 20 unit SQ DAILY 03/27/18 [Basaglar Kwikpen U-100] Losartan Potassium 25 mg PO DAILY 03/27/18 metFORMIN HCL [Metformin HCl] 500 mg PO HS 03/27/18 Abnormal Lab Results 03/27/18 03/27/18 03/27/18 21:37 21:37 21:37 WBC 13.1 H RBC 5.52 H Hct 46.9 H MCHC 31.7 L RDW 18.1 H Absolute Neuts (auto) 11.1 H Neutrophils % 84.8 H Lymphocytes % 5.1 L ABG pH ABG pCO2 at Pt Temp ABG pO2 at Pt Temp ABG HCO3 ABG O2 Sat (Measured) VBG pH 7.18 L* POC VBG pCO2 100.0 H* Mixed VBG HCO3 35.5 H Methemoglobin Carbon Dioxide 34 H Anion Gap 6 L BUN 25 H Random Glucose 148 H Phosphorus 5.6 H AST 68 H Alkaline Phosphatase 155 H Creatine Kinase 264 H CK-MB (CK-2) 3.8 H Troponin I 0.79 H* B-Natriuretic Peptide 28763.8 H Total Protein 8.6 H Albumin 3.1 L Urine Protein Urine Blood Urine Urobilinogen 03/27/18 03/27/18 03/27/18 21:43 22:30 23:30 WBC RBC Hct MCHC RDW Absolute Neuts (auto) Neutrophils % Lymphocytes % ABG pH 7.20 L* ABG pCO2 at Pt Temp 86.7 H* ABG pO2 at Pt Temp 68.6 L ABG HCO3 32.8 H ABG O2 Sat (Measured) 87.4 L VBG pH 7.17 L* POC VBG pCO2 97.4 H* Mixed VBG HCO3 33.8 H Methemoglobin Carbon Dioxide Anion Gap BUN Random Glucose Phosphorus AST Alkaline Phosphatase Creatine Kinase CK-MB (CK-2) Troponin I B-Natriuretic Peptide Total Protein Albumin Urine Protein 2+ H Urine Blood 2+ H Urine Urobilinogen 2.0 H 03/28/18 02:00 WBC RBC Hct MCHC RDW Absolute Neuts (auto) Neutrophils % Lymphocytes % ABG pH ABG pCO2 at Pt Temp ABG pO2 at Pt Temp ABG HCO3 ABG O2 Sat (Measured) VBG pH POC VBG pCO2 Mixed VBG HCO3 Methemoglobin 0.3 L Carbon Dioxide Anion Gap BUN Random Glucose Phosphorus AST Alkaline Phosphatase Creatine Kinase CK-MB (CK-2) Troponin I B-Natriuretic Peptide Total Protein Albumin Urine Protein Urine Blood Urine Urobilinogen ASSESSMENT AND PLAN: 1. Acute hypoxic and hypercarbic Respiratory Failure - Findings consistent with both CHF and COPD exacerbation. CXR shows cardiomegaly, pulmonary congestion and a cavitary lesions in RML and LLL. Lung field are clearer - improved on the post intubation CXR. Will continue diuresis with IV lasix, monitor urine output and also treat with duoneb, symbicort, solumedrol and iv protonix. Though mild leukocytosis may be due to stress, will check for RSV, send urine for legionella antigen and treat with IV Rocephin and Azithromycin. Once stable, will need chest CT to evaluate cavitary lung lesions. Elevated troponin likely due to demand ischemia. No changes of ischemia on EKG. Will trend troponin to rule out NSTEMI and get ECHO. 2. DM - For now, we will hold the home diabetes drugs and implement sliding scale insulin regimen. Provide comprehensive diabetes care with patient teaching and counseling about the importance of euglycemia, eye care and foot care. Once stable, will need higher dose of losartan to combat proteinuria which is likely due to DM. 3. Obesity - Will provide patient all the necessary assistance, counseling and positive reinforcement to facilitate weight loss. Consult canvas worker. 4. DVT prophylaxis - Lovenox 40 mg SQ q 12 hours. 5. Advance directives - Full code
[2018-03-28 03:36] LABS: VENOUS PO2 51.6 mmHg (28-48)
[2018-03-28 03:37] LABS: VENOUS PH 7.24 (7.32-7.42)
[2018-03-28 03:38] LABS: VENOUS PC02 81.2 mmHg (38-52)
--- NOTE | 2018-03-28 03:42 | HP ---
CHIEF COMPLAINT: shortness of breath PCP: HISTORY OF PRESENT ILLNESS: History obtained through telephone conversation with patient's Krishna Williamson son ([phone]) Patient is a 67 year old female with history of morbid obesity, COPD, LEONIDES ( poorly compliant with home CPAP), diabetes mellitus, hypertension, hyperlipidemia, presents with complaint of shortness of breath worsening over the past two weeks. Patient's son endorses that she is poorly compliant with her home Lasix dose as she does not want to go to the bathroom at night. She has been skipping her Lasix doses over the past month. Endorses prior occurrence of these symptoms approx. 1 year ago, at [facility]. Patient's son does not recall that she has been intubated in the past. ER course was notable for: (1) Lasix, Duonebs, Zosyn, BiPAP, (2) CXR, ABG (3) Endotracheal intubation Recent Travel: PAST MEDICAL HISTORY: morbid obesity, COPD, LEONIDES, diabetes mellitus, hypertension , hyperlipidemia PAST SURGICAL HISTORY: none (per patient's son) Social History: Smoking: former smoker 1/2 pack per day for approx. 11 years. Quit smoking 10 years ago Alcohol: one glass of wine, occasionally Drugs: denies Family History: Allergies No Known Allergies Allergy (Verified 03/27/18 19:54) HOME MEDICATIONS: Home Medications Medication Instructions Recorded Ofloxacin 0.3% Ophth Soln [Ocuflox 1 drop OS QID 4 Days #1 bottle 12/27/17 -] Albuterol Sulfate Inhaler - 2 inh PO Q4H PRN 03/27/18 [Ventolin Hfa Inhaler -] Atorvastatin Ca [Lipitor] 20 mg PO HS 03/27/18 Fluticasone/Salmeterol [Advair 1 each IH BID 03/27/18 250-50 Diskus] Furosemide [Lasix] 20 mg PO DAILY 03/27/18 Insulin Glargine,Hum.rec.anlog 20 unit SQ DAILY 03/27/18 [Basaglar Kwikpen U-100] Losartan Potassium 25 mg PO DAILY 03/27/18 metFORMIN HCL [Metformin HCl] 500 mg PO HS 03/27/18 REVIEW OF SYSTEMS Unable to obtain. Patient is poorly responsive. Intubated. PHYSICAL EXAMINATION Vital Signs - 24 hr 03/27/18 03/27/1803/27/19 19:51 21:10 23:00 Pulse Rate 121 H Pulse Rate [ Left Radial] Respiratory 30 H Rate Blood Pressure 140/62 Blood Pressure [Right Arm] O2 Sat by Pulse 75 L 89 L 95 Oximetry (%) 03/28/18 03/28/18 03/28/18 00:20 00:33 00:50 Pulse Rate Pulse Rate [ 97 H 99 H 96 H Left Radial] Respiratory 32 H 32 H 19 Rate Blood Pressure Blood Pressure 147/72 124/75 158/98 [Right Arm] O2 Sat by Pulse 92 L 99 Oximetry (%) 03/28/18 03/28/18 03/28/18 01:51 01:59 02:00 Pulse Rate 105 H Pulse Rate [ 92 H Left Radial] Respiratory 38 H 18 Rate Blood Pressure Blood Pressure 104/63 [Right Arm] O2 Sat by Pulse 92 L 89 L Oximetry (%) GENERAL: Intubated. Sedated. HEAD: Normocephalic, atraumatic EYES: Pupils 2mm b/l. Equal, round and reactive to light. Conjunctiva injected b /l. NECK: Supple without lymphadenopathy LUNGS: Patient is intubated, on ventilator. Coarse, mechanical breath sounds auscultated B/L. HEART: Regular rate and rhythm, + S1 and S2 auscultated. ABDOMEN: Obese. Soft. normoactive bowel sounds, no guarding, no rebound, no masses. No hepatomegaly or splenomegaly. EXTREMITIES: 2+ radial pulses b/l, 1+ dorsalis pedis pulses b/l. chronic venous stasis changes b/l lower extremities. 2+ pitting edema b/l. NEUROLOGICAL: Good muscle tone B/L upper and lower extremities. Laboratory Results - last 24 hr 03/27/18 03/27/18 03/27/18 21:37 21:37 21:37 WBC 13.1 H RBC 5.52 H Hgb 14.9 Hct 46.9 H MCV 85.1 MCH 27.0 MCHC 31.7 L RDW 18.1 H Plt Count 270 MPV 9.1 Absolute Neuts (auto) 11.1 H Neutrophils % 84.8 H Lymphocytes % 5.1 L Monocytes % 9.6 Eosinophils % 0.0 Basophils % 0.5 Nucleated RBC % 0 Platelet Estimate Adequate Platelet Comment Anticoagulation Therapy Puncture Site ABG pH ABG pCO2 at Pt Temp ABG pO2 at Pt Temp ABG HCO3 ABG O2 Sat (Measured) ABG O2 Content ABG Base Excess Dwayne Test VBG pH 7.18 L* POC VBG pCO2 100.0 H* POC VBG pO2 35.4 Mixed VBG HCO3 35.5 H Carboxyhemoglobin Methemoglobin O2 Delivery Device Oxygen Flow Rate Vent Mode Vent Rate Mechanical Rate Pressure Support Vent Sodium 139 Potassium 4.7 Chloride 100 Carbon Dioxide 34 H Anion Gap 6 L BUN 25 H Creatinine 1.3 Creat Clearance w eGFR 41.11 Random Glucose 148 H Calcium 8.8 Phosphorus 5.6 H Magnesium 1.8 Total Bilirubin 0.6 AST 68 H ALT 61 Alkaline Phosphatase 155 H Creatine Kinase 264 H Creatine Kinase Index 1.4 CK-MB (CK-2) 3.8 H Troponin I 0.79 H* B-Natriuretic Peptide 84002.8 H Total Protein 8.6 H Albumin 3.1 L Urine Color Urine Appearance Urine pH Ur Specific [place] Urine Protein Urine Glucose (UA) Urine Ketones Urine Blood Urine Nitrite Urine Bilirubin Urine Urobilinogen Ur Leukocyte Esterase Urine WBC (Auto) Urine RBC (Auto) Ur Epithelial Cells Urine Bacteria Hyaline Casts Urine Mucus 03/27/18 03/27/18 03/27/18 21:43 22:30 23:30 WBC RBC Hgb Hct MCV MCH MCHC RDW Plt Count MPV Absolute Neuts (auto) Neutrophils % Lymphocytes % Monocytes % Eosinophils % Basophils % Nucleated RBC % Platelet Estimate Platelet Comment Anticoagulation Therapy No Result Required. Puncture Site Right radial ABG pH 7.20 L* ABG pCO2 at Pt Temp 86.7 H* ABG pO2 at Pt Temp 68.6 L ABG HCO3 32.8 H ABG O2 Sat (Measured) 87.4 L ABG O2 Content 17.6 ABG Base Excess 1.8 Dwayne Test Positive VBG pH 7.17 L* POC VBG pCO2 97.4 H* POC VBG pO2 45.9 D Mixed VBG HCO3 33.8 H Carboxyhemoglobin Methemoglobin O2 Delivery Device Bipap Oxygen Flow Rate 50% Vent Mode No Result Required. Vent Rate 16 Mechanical Rate No Result Required. Pressure Support Vent No Result Required. Sodium Potassium Chloride Carbon Dioxide Anion Gap BUN Creatinine Creat Clearance w eGFR Random Glucose Calcium Phosphorus Magnesium Total Bilirubin AST ALT Alkaline Phosphatase Creatine Kinase Creatine Kinase Index CK-MB (CK-2) Troponin I B-Natriuretic Peptide Total Protein Albumin Urine Color Cyndie Urine Appearance Cloudy Urine pH 5.0 Ur Specific [place] 1.018 Urine Protein 2+ H Urine Glucose (UA) Negative Urine Ketones Negative Urine Blood 2+ H Urine Nitrite Negative Urine Bilirubin Negative Urine Urobilinogen 2.0 H Ur Leukocyte Esterase Trace Urine WBC (Auto) 10 Urine RBC (Auto) 1 Ur Epithelial Cells Rare Urine Bacteria Rare Hyaline Casts 15 Urine Mucus Rare 03/28/18 03/28/18 02:00 02:40 WBC RBC Hgb Hct MCV MCH MCHC RDW Plt Count MPV Absolute Neuts (auto) Neutrophils % Lymphocytes % Monocytes % Eosinophils % Basophils % Nucleated RBC % Platelet Estimate Platelet Comment Anticoagulation Therapy Puncture Site ABG pH ABG pCO2 at Pt Temp ABG pO2 at Pt Temp ABG HCO3 ABG O2 Sat (Measured) ABG O2 Content ABG Base Excess Dwayne Test VBG pH 7.24 L* POC VBG pCO2 81.2 H* POC VBG pO2 51.6 H Mixed VBG HCO3 33.4 H Carboxyhemoglobin 1.3 Methemoglobin 0.3 L O2 Delivery Device Oxygen Flow Rate Vent Mode Vent Rate Mechanical Rate Pressure Support Vent Sodium Potassium Chloride Carbon Dioxide Anion Gap BUN Creatinine Creat Clearance w eGFR Random Glucose Calcium Phosphorus Magnesium Total Bilirubin AST ALT Alkaline Phosphatase Creatine Kinase Creatine Kinase Index CK-MB (CK-2) Troponin I B-Natriuretic Peptide Total Protein Albumin Urine Color Urine Appearance Urine pH Ur Specific [place] Urine Protein Urine Glucose (UA) Urine Ketones Urine Blood Urine Nitrite Urine Bilirubin Urine Urobilinogen Ur Leukocyte Esterase Urine WBC (Auto) Urine RBC (Auto) Ur Epithelial Cells Urine Bacteria Hyaline Casts Urine Mucus ASSESSMENT/PLAN: Patient is a 67 year old female with history of morbid obesity, COPD, LEONIDES ( poorly compliant with home CPAP), diabetes mellitus, hypertension, hyperlipidemia, presents with complaint of shortness of breath worsening over the past two weeks. Acute hypoxic hypercapnic respiratory failure -Likely due to CHF exacerbation secondary to poor home medication compliance vs community acquired pneumonia -Chest Xray shows improvement of congestive changes after lasix, however concern for cavitary lesions B/L. Pending official read. Consider CT chest. -ABG shows respiratory acidosis (pH 7.20, CO2 56.7, O2 68.6 on BiPAP, HCO3 87.4 ) -Patient is intubated. FiO2 59, PEEP 5, Peak 45, TV 470, RR 25. Sedated with Versed 2mg/ hour, Fentanyl 50mcg/ hour -Patient received total 160mg IV lasix in ED -Duonebs QID -Solu-Medrol 60mg IV Q8H -Symbicort 160/ 4.5 2 puffs BID -Vancomycin 1 gram IV QHS -Zosyn 3.375 grams IV Q8H -F/U urine for legionella antigens -F/U RSV, Influenza swab -F/U Blood cultures -ID consult (Dr. Carreno) -Pulmonology consult (Dr. Paige) Troponinemia -0.79 -> 1.12. Likely secondary to demand ischemia. Trend troponins to peak. -EKG shows sinus rhythm at 89 BPM, nonspecfic T wave abnormality. No ischemic changes noted. -Heparin drip initiated -F/U cardiac ECHO -Cardiology consult (Dr. Jay) Diabetes mellitus -Insulin sliding scale ACHS -Fingerstick blood glucose ACHS Hypertension -Currently holding home antihypertensives. -Follow vital signs FEN -No IV fluids -Follow CMP -NPO Prophylaxis -Heparin 5000u subq TID -Protonix 40mg IV daily Disposition -Admit to ICU Advanced directives: Currently patient is full code. Patient's son endorses that he is health care proxy. Initiated goals of care discussion. Visit type - Emergency Visit Emergency Visit: Yes ED Registration Date: 03/28/18 Care time: The patient presented to the Emergency Department on the above date and was hospitalized for further evaluation of their emergent condition. - New Patient This patient is new to me today: Yes Date on this admission: 03/28/18 - Critical Care Critical Care patient: Yes Total Critical Care Time (in minutes): 45 Critical Care Statement: The care of this patient involved high complexity decision making to prevent further life threatening deterioration of the patient 's condition and/or to evaluate & treat vital organ system(s) failure or risk of failure.
[2018-03-28] MEDS ORDERED: HEPARIN NA (PORCINE) 5,000 UNITS/ML 1ML VIAL IVPUSH PRN ×2 (05:30)
[2018-03-28] MEDS ORDERED: HEPARIN NA (PORCINE) 5,000 UNITS/ML 1ML VIAL SQ SCH (06:00)
[2018-03-28 06:08] LABS: BASO % 0.4 % (0-2.0); HEMATOCRIT 44.5 % (32.4-45.2); HEMOGLOBIN 13.6 GM/dL (10.7-15.3); LYMPH % 6.3 % (8-40); MCHC 30.6 g/dl (32.0-36.0); MEAN PLT VOLUME 9.5 fl (7.5-11.1); MONO % 5.2 % (3.8-10.2); NEUT % 88.1 % (42.8-82.8); PLATELET COUNT 203 K/MM3 (134-434); RBC 5.23 M/mm3 (3.60-5.2); RDW 17.9 % (11.6-15.6); WHITE BLOOD COUNT 13.8 K/mm3 (4.0-10.0)
[2018-03-28 06:37] LABS: ANION GAP 8 MMOL/L (8-16); BLOOD UREA NITROGEN 27 mg/dL (7-18); CALCIUM 8.1 mg/dL (8.5-10.1); CHLORIDE 100 mmol/L (98-107); CO2 32 mmol/L (21-32); CREATININE 1.1 mg/dL (0.55-1.3); GLUCOSE,RANDOM 173 mg/dL (74-106); MAGNESIUM 1.7 mg/dL (1.8-2.4); PHOSPHOROUS 3.8 mg/dL (2.5-4.9); POTASSIUM 4.2 mmol/L (3.5-5.1); SODIUM 140 mmol/L (136-145)
[2018-03-28] MEDS: INSULIN SLIDING SCALE (NOVOLOG) 1 VIAL SQ SCH ×4 (06:45→22:56)
[2018-03-28] MEDS ORDERED: MAGNESIUM 2GM/50ML STERILE WATER IVPB IVPB ONE (06:54)
--- NOTE | 2018-03-28 07:29 | PN ---
Physical Exam: SUBJECTIVE: Patient seen and examined OBJECTIVE: Vital Signs Period Temp Pulse Resp BP Sys/Garner Pulse Ox Last 24 Hr 98.8 F-99 F 82-121 18-38 104-158/62-98 75-99 Active Medications Generic Name Dose Route Start Last Admin Trade Name Freq PRN Reason Stop Dose Admin Albuterol Sulfate 1 amp 03/28/18 00:54 Ventolin 0.083% Nebulizer Soln - NEB Q4H PRN SHORT OF BREATH/WHEEZING Albuterol/Ipratropium 1 amp 03/28/18 08:00 Duoneb - NEB RQID DONTA Budesonide/Formoterol Fumarate 2 puff 03/28/18 01:00 03/28/18 01:32 Symbicort 160/4.5mcg - IH Not Given BID DONTA Chlorhexidine Gluconate 1 applic 03/28/18 22:00 Hibiclens For Decolonization - TP HS DONTA Heparin Sodium (Porcine) 1,000 unit 03/28/18 05:30 Heparin - IVPUSH PRN PRN Heparin Heparin Sodium (Porcine) 5,000 unit 03/28/18 05:30 Heparin - IVPUSH PRN PRN Heparin Fentanyl 500 mcg/ Dextrose 100 mls @ 10 mls/hr 03/28/18 01:30 03/28/18 02:53 IVPB 50 mcg/hr TITR DONTA 10 mls/hr Administration 50 MCG/HR Midazolam HCl 100 mg/ Sodium 100 mls @ 2 mls/hr 03/28/18 01:30 03/28/18 02:53 Chloride IVPB 2 mg/hr TITR DONTA 2 mls/hr Administration Protocol 2 MG/HR Piperacillin Sod/Tazobactam 50 mls @ 100 mls/hr 03/28/18 18:00 Sod 3.375 gm/ Dextrose IVPB Q8H-IV DONTA Protocol Piperacillin Sod/Tazobactam 50 mls @ 100 mls/hr 03/28/18 08:00 Sod 3.375 gm/ Dextrose IVPB 03/28/18 08:29 ONCE ONE Protocol Heparin Sodium/Dextrose 25,000 units in 500 mls @ 20 mls/hr 03/28/18 05:30 Heparin Infusion - IVPB TITR DONTA Protocol 1,000 UNIT/HR Insulin Aspart 1 vial 03/28/18 07:00 03/28/18 06:45 Novolog Vial Sliding Scale - SQ 4 units ACHS [facility] Administration Protocol Methylprednisolone Sodium Succinate 60 mg 03/28/18 10:00 Solu-Medrol - IVPUSH Q8H-IV DONTA Mupirocin 1 applic 03/28/18 10:00 Bactroban Ointment (For Decolonization) - NS 04/02/18 09:59 BID [facility] Pantoprazole Sodium 40 mg 03/28/18 01:29 03/28/18 01:58 Protonix Iv IVPUSH 40 mg DAILY [facility] Administration Vancomycin HCl 1,000 mg 03/28/18 22:00 Vancomycin (Pre-Docked) IVPB HS [facility] Protocol ASSESSMENT/PLAN: 67 y/o F w/ PMHx CHF, COPD on home O2, LEONIDES on CPAP, IDDM, morbid obesity, HTN, HLD, presents in acute hypercapneic respiratory failure and acute CHF exacerbation 2/2 reported medication non-adherence, possible superimposed CAP. Neuro Sedated -Fentanyl/Versed CV Acute CHF exacerbation -ECHO pending -cardiology consulted -Lasix 80mg IV once Troponinemia -0.79 -> 1.12 -ASA -Heparin gtt -Cardiology consulted HLD -Restart home statin when appropriate Pulm COPD w/ Acute hypercapneic respiratory failure -s/p intubation 03/27/2018 -Methylprednisolone 60mg IV Q8H -Albuterol 1 amp NEB Q4H PRN -Symbicort 2 puff IH BID DONTA -Duoneb 1 amp NEB RQID DONTA Likely CAP -Ceftriaxone 2g IV daily -Azithromycin 500 mg IV daily -ID consulted GI Nutrition -NPO Ppx -Protonix 40mg IV daily Hypervolemia -Lasix 80mg IV once -Strict I/O --Villabla in place Hypomagnesemia -Repleted Heme DVT Ppx -Heparin gtt ID Likely CAP -s/p Zosyn in ED -Ceftriaxone 2g IV daily -Azithromycin 500 mg IV daily -ID consulted Endo DM -ISS, BGM LTD -ETT- 03/27/2018 -Villalba- 03/27/2018 -PIV Code Status -full code, son is NOK Dispo: Continues to require ICU level of care Visit type - Emergency Visit Emergency Visit: Yes ED Registration Date: 03/28/18 Care time: The patient presented to the Emergency Department on the above date and was hospitalized for further evaluation of their emergent condition. - New Patient This patient is new to me today: Yes Date on this admission: 03/28/18 - Critical Care Critical Care patient: Yes Total Critical Care Time (in minutes): 35 Critical Care Statement: The care of this patient involved high complexity decision making to prevent further life threatening deterioration of the patient 's condition and/or to evaluate & treat vital organ system(s) failure or risk of failure.
[2018-03-28 07:42] LABS: ARTERIAL BLD GAS O2 SATURATION 96.7 % (90-98.9); ARTERIAL BLOOD GAS PCO2 47.8 mmHg (35-45); ARTERIAL BLOOD GAS PO2 83.7 mmHg (80-100); ARTERIAL BLOOD GAS pH 7.44 (7.35-7.45)
[2018-03-28 07:43] LABS: ALLENS TEST POSITIVE
[2018-03-28] MEDS ORDERED: PIPERACILLIN/TAZOB 3.375 GM 3.375 GM in DEXTROSE 5%-WATER - 50 ML IVPB ONE (08:00)
[2018-03-28] MEDS: ALBUTEROL SO4 2.5/IPRATROPIUM 0.5 INH SOL 3 ML VIAL.NEB. NEB SCH ×4 (08:20→20:45)
[2018-03-28] MEDS ORDERED: DEXTROSE 5%-WATER - 50 ML IVPB ONE (09:12)
[2018-03-28] MEDS ORDERED: PIPERACILLIN/TAZOBACTAM 3.375 GM VIAL IVPB ONE (09:12)
[2018-03-28] MEDS: methylPREDNISolone NA SUCC 125 MG/2 ML VIAL IVPUSH SCH ×2 (09:43→17:18)
--- NOTE | 2018-03-28 09:57 | PN ---
Teaching Attending Note Name of Resident: Florentino Angel ATTENDING PHYSICIAN STATEMENT I saw and evaluated the patient. I reviewed the resident's note and discussed the case with the resident. I agree with the resident's findings and plan as documented. SUBJECTIVE: Patient seen and examined in the ICU. Intubated and sedated. AC Mode of vent, 60% FiO2. No pressors. Intake & Output 03/25/18 03/26/18 03/27/18 03/28/18 23:59 23:59 23:59 23:59 Intake Total 28 Output Total 700 Balance -672 Weight 300 lb 306 lb 5 oz Last Vital Signs Temp Pulse Resp BP Pulse Ox 98.8 F 77 25 H 111/62 99 03/28/18 06:00 03/28/18 08:00 03/28/18 06:30 03/28/18 08:00 03/28/18 04:19 Active Medications Albuterol Sulfate (Ventolin 0.083% Nebulizer Soln -) 1 amp NEB Q4H PRN PRN Reason: SHORT OF BREATH/WHEEZING Albuterol/Ipratropium (Duoneb -) 1 amp NEB RQID DONTA Budesonide/Formoterol Fumarate (Symbicort 160/4.5mcg -) 2 puff IH BID DONTA Last Admin: 03/28/18 09:44 Dose: Not Given Chlorhexidine Gluconate (Hibiclens For Decolonization -) 1 applic TP HS DONTA Heparin Sodium (Porcine) (Heparin -) 1,000 unit IVPUSH PRN PRN PRN Reason: Heparin Heparin Sodium (Porcine) (Heparin -) 5,000 unit IVPUSH PRN PRN PRN Reason: Heparin Fentanyl 500 mcg/ Dextrose 100 mls @ 10 mls/hr IVPB TITR DONTA Last Admin: 03/28/18 02:53 Dose: 50 mcg/hr, 10 mls/hr Midazolam HCl 100 mg/ Sodium (Chloride) 100 mls @ 2 mls/hr IVPB TITR DONTA; Protocol Last Admin: 03/28/18 02:53 Dose: 2 mg/hr, 2 mls/hr Piperacillin Sod/Tazobactam (Sod 3.375 gm/ Dextrose) 50 mls @ 100 mls/hr IVPB Q8H-IV DONTA; Protocol Heparin Sodium/Dextrose (Heparin Infusion -) 25,000 units in 500 mls @ 20 mls/ hr IVPB TITR DONTA; Protocol Insulin Aspart (Novolog Vial Sliding Scale -) 1 vial SQ ACHS DONTA; Protocol Last Admin: 03/28/18 06:45 Dose: 4 units Methylprednisolone Sodium Succinate (Solu-Medrol -) 60 mg IVPUSH Q8H-IV DONTA Last Admin: 03/28/18 09:43 Dose: 60 mg Mupirocin (Bactroban Ointment (For Decolonization) -) 1 applic NS BID [facility] Stop: 04/02/18 09:59 Pantoprazole Sodium (Protonix Iv) 40 mg IVPUSH DAILY DONTA Last Admin: 03/28/18 09:43 Dose: 40 mg Vancomycin HCl (Vancomycin (Pre-Docked)) 1,000 mg IVPB HS DONTA; Protocol GENERAL: Intubated and sedated HEAD: NC/AT EYES: anicteric, (-) Pallor EARS, NOSE, THROAT: MMM NECK: Supple, +JVD above angle of mandible LUNGS: Scattered bilateral coarse rhonchi and expiratory wheezes HEART: S1S2 regular ABDOMEN: soft, obese, (+) BS EXTREMITIES: (+) bipedal edema, (+) venous stasis NEUROLOGICAL: sedated SKIN: Warm, dry, slight erythema in the LE Laboratory Results - last 24 hr 03/27/18 03/27/18 03/27/18 21:37 21:37 21:37 WBC 13.1 H RBC 5.52 H Hgb 14.9 Hct 46.9 H MCV 85.1 MCH 27.0 MCHC 31.7 L RDW 18.1 H Plt Count 270 MPV 9.1 Absolute Neuts (auto) 11.1 H Neutrophils % 84.8 H Lymphocytes % 5.1 L Monocytes % 9.6 Eosinophils % 0.0 Basophils % 0.5 Nucleated RBC % 0 Platelet Estimate Adequate Platelet Comment Anticoagulation Therapy Puncture Site ABG pH ABG pCO2 at Pt Temp ABG pO2 at Pt Temp ABG HCO3 ABG O2 Sat (Measured) ABG O2 Content ABG Base Excess Dwayne Test VBG pH 7.18 L* POC VBG pCO2 100.0 H* POC VBG pO2 35.4 Mixed VBG HCO3 35.5 H O2 Delivery Device Oxygen Flow Rate Vent Mode Vent Rate Mechanical Rate Pressure Support Vent Sodium 139 Potassium 4.7 Chloride 100 Carbon Dioxide 34 H Anion Gap 6 L BUN 25 H Creatinine 1.3 Creat Clearance w eGFR 41.11 Random Glucose 148 H Calcium 8.8 Phosphorus 5.6 H Magnesium 1.8 Total Bilirubin 0.6 AST 68 H ALT 61 Alkaline Phosphatase 155 H Creatine Kinase 264 H Creatine Kinase Index 1.4 CK-MB (CK-2) 3.8 H B-Natriuretic Peptide 24255.8 H Total Protein 8.6 H Albumin 3.1 L Urine Color Urine Appearance Urine pH Ur Specific [place] Urine Protein Urine Glucose (UA) Urine Ketones Urine Blood Urine Nitrite Urine Bilirubin Urine Urobilinogen Ur Leukocyte Esterase Urine WBC (Auto) Urine RBC (Auto) Ur Epithelial Cells Urine Bacteria Hyaline Casts Urine Mucus 03/27/18 03/27/18 03/27/18 21:43 22:30 23:30 WBC RBC Hgb Hct MCV MCH MCHC RDW Plt Count MPV Absolute Neuts (auto) Neutrophils % Lymphocytes % Monocytes % Eosinophils % Basophils % Nucleated RBC % Platelet Estimate Platelet Comment Anticoagulation Therapy No Result Required. Puncture Site Right radial ABG pH 7.20 L* ABG pCO2 at Pt Temp 86.7 H* ABG pO2 at Pt Temp 68.6 L ABG HCO3 32.8 H ABG O2 Sat (Measured) 87.4 L ABG O2 Content 17.6 ABG Base Excess 1.8 Dwayne Test Positive VBG pH 7.17 L* POC VBG pCO2 97.4 H* POC VBG pO2 45.9 D Mixed VBG HCO3 33.8 H O2 Delivery Device Bipap Oxygen Flow Rate 50% Vent Mode No Result Required. Vent Rate 16 Mechanical Rate No Result Required. Pressure Support Vent No Result Required. Sodium Potassium Chloride Carbon Dioxide Anion Gap BUN Creatinine Creat Clearance w eGFR Random Glucose Calcium Phosphorus Magnesium Total Bilirubin AST ALT Alkaline Phosphatase Creatine Kinase Creatine Kinase Index CK-MB (CK-2) B-Natriuretic Peptide Total Protein Albumin Urine Color Cyndie Urine Appearance Cloudy Urine pH 5.0 Ur Specific [place] 1.018 Urine Protein 2+ H Urine Glucose (UA) Negative Urine Ketones Negative Urine Blood 2+ H Urine Nitrite Negative Urine Bilirubin Negative Urine Urobilinogen 2.0 H Ur Leukocyte Esterase Trace Urine WBC (Auto) 10 Urine RBC (Auto) 1 Ur Epithelial Cells Rare Urine Bacteria Rare Hyaline Casts 15 Urine Mucus Rare ASSESSMENT/PLAN: Acute Hypercaneic/Hypoxic Respiratory Failure AE of COPD Suspected CAP OSAS on CPAP DM Morbid Obesity HTN HPL Current vent settings ABX coverage: Noted ID called Medrol BD TX standing and PRN Sputum culture Urinary Antigen Daily Lasix Start enteral feeds Noted IV Heparin started as troponin was (+): Cardiology consult has been called Serial CE ECHO Strict I & O GI prophylaxis when on vent > 48 hours - Critical Care Critical Care patient: Yes Total Critical Care Time (in minutes): 40 Critical Care Statement: The care of this patient involved high complexity decision making to prevent further life threatening deterioration of the patient 's condition and/or to evaluate & treat vital organ system(s) failure or risk of failure.
[2018-03-28] MEDS ORDERED: MUPIROCIN 2% TOPICAL OINTMENT FOR DECOLONIZATION NS SCH (10:00)
--- NOTE | 2018-03-28 10:16 | CON.CARD ---
Cardiology Consult (text) - Consultation Consultation Note: Reason for Consult: HF Exacerbation HPI: 67 year old female with PMHx CHF, COPD on home O2, LEONIDES on CPAP, IDDM, morbid obesity, HTN, HLD, non-compliance with diuretics presented with shortness of breath, increase lower extremity swelling found to have acute respiratory distress requiring intubation for airway protection admitted to ICU for heart failure/COPD exacerbation. Cardiology consulted for further management. Labs remarkable for BNP 10,000s, tropnon 1.1. Currently hemodynamically stable - on ASA, heparin gtt and IV lasix. PAST MEDICAL HISTORY: morbid obesity, COPD, LEONIDES, diabetes mellitus, hypertension , hyperlipidemia PAST SURGICAL HISTORY: none (per patient's son) Social History: Smoking: former smoker 1/2 pack per day for approx. 11 years. Quit smoking 10 years ago Alcohol: one glass of wine, occasionally Drugs: denies Family History: Allergies No Known Allergies Allergy (Verified 03/27/18 19:54) HOME MEDICATIONS: Home Medications Medication Instructions Recorded Ofloxacin 0.3% Ophth Soln [Ocuflox 1 drop OS QID 4 Days #1 bottle 12/27/17 -] Albuterol Sulfate Inhaler - 2 inh PO Q4H PRN 03/27/18 [Ventolin Hfa Inhaler -] Atorvastatin Ca [Lipitor] 20 mg PO HS 03/27/18 Fluticasone/Salmeterol [Advair 1 each IH BID 03/27/18 250-50 Diskus] Furosemide [Lasix] 20 mg PO DAILY 03/27/18 Insulin Glargine,Hum.rec.anlog 20 unit SQ DAILY 03/27/18 [Basaglar Kwikpen U-100] Losartan Potassium 25 mg PO DAILY 03/27/18 metFORMIN HCL [Metformin HCl] 500 mg PO HS 03/27/18 Physical Exam Vital Signs 03/28/18 03/28/18 03/28/18 03:30 04:00 04:01 Temperature 99 F Pulse Rate 84 86 Respiratory 21 H 24 H 20 Rate Blood Pressure 108/65 115/69 O2 Sat by Pulse Oximetry (%) 03/28/18 03/28/18 03/28/18 04:19 05:00 06:00 Temperature 99 F 98.8 F Pulse Rate 86 82 84 Respiratory 26 H 22 H 24 H Rate Blood Pressure 115/69 130/67 127/68 O2 Sat by Pulse 98 Oximetry (%) 03/28/18 03/28/18 03/28/18 06:30 08:00 10:00 Temperature 98.7 F Pulse Rate 77 77 Respiratory 25 H Rate Blood Pressure 111/62 110/63 O2 Sat by Pulse Oximetry (%) Gen: intubated/sedated Cardiac: S1/S2, +S3, 2/6 systolic murmur loudest at LSB Pulm: coarse breath sounds bilaterally. Ext: WWP. 3+ LE edema bilaterally Abnormal Lab Results 03/27/18 03/27/18 03/27/18 21:37 21:37 21:37 WBC 13.1 H RBC 5.52 H Hct 46.9 H MCHC 31.7 L RDW 18.1 H Absolute Neuts (auto) 11.1 H Neutrophils % 84.8 H Lymphocytes % 5.1 L ABG pH ABG pCO2 at Pt Temp ABG pO2 at Pt Temp ABG HCO3 ABG O2 Sat (Measured) ABG Base Excess VBG pH 7.18 L* POC VBG pCO2 100.0 H* POC VBG pO2 Mixed VBG HCO3 35.5 H Methemoglobin Carbon Dioxide 34 H Anion Gap 6 L BUN 25 H Random Glucose 148 H Calcium Phosphorus 5.6 H Magnesium AST 68 H Alkaline Phosphatase 155 H Creatine Kinase 264 H CK-MB (CK-2) 3.8 H Troponin I 0.79 H* B-Natriuretic Peptide 59201.8 H Total Protein 8.6 H Albumin 3.1 L Urine Protein Urine Blood Urine Urobilinogen 03/27/18 03/27/18 03/27/18 21:43 22:30 23:30 WBC RBC Hct MCHC RDW Absolute Neuts (auto) Neutrophils % Lymphocytes % ABG pH 7.20 L* ABG pCO2 at Pt Temp 86.7 H* ABG pO2 at Pt Temp 68.6 L ABG HCO3 32.8 H ABG O2 Sat (Measured) 87.4 L ABG Base Excess VBG pH 7.17 L* POC VBG pCO2 97.4 H* POC VBG pO2 Mixed VBG HCO3 33.8 H Methemoglobin Carbon Dioxide Anion Gap BUN Random Glucose Calcium Phosphorus Magnesium AST Alkaline Phosphatase Creatine Kinase CK-MB (CK-2) Troponin I B-Natriuretic Peptide Total Protein Albumin Urine Protein 2+ H Urine Blood 2+ H Urine Urobilinogen 2.0 H 03/28/18 03/28/18 03/28/18 02:00 02:40 02:40 WBC RBC Hct MCHC RDW Absolute Neuts (auto) Neutrophils % Lymphocytes % ABG pH ABG pCO2 at Pt Temp ABG pO2 at Pt Temp ABG HCO3 ABG O2 Sat (Measured) ABG Base Excess VBG pH 7.24 L* POC VBG pCO2 81.2 H* POC VBG pO2 51.6 H Mixed VBG HCO3 33.4 H Methemoglobin 0.3 L Carbon Dioxide Anion Gap BUN Random Glucose Calcium Phosphorus Magnesium AST Alkaline Phosphatase Creatine Kinase CK-MB (CK-2) Troponin I 1.12 H* B-Natriuretic Peptide Total Protein Albumin Urine Protein Urine Blood Urine Urobilinogen 03/28/18 03/28/18 03/28/18 05:15 05:15 06:05 WBC 13.8 H RBC 5.23 H Hct MCHC 30.6 L RDW 17.9 H Absolute Neuts (auto) 12.1 H Neutrophils % 88.1 H Lymphocytes % 6.3 L D ABG pH ABG pCO2 at Pt Temp 47.8 H D ABG pO2 at Pt Temp ABG HCO3 31.9 H ABG O2 Sat (Measured) ABG Base Excess 7.0 H VBG pH POC VBG pCO2 POC VBG pO2 Mixed VBG HCO3 Methemoglobin Carbon Dioxide Anion Gap BUN 27 H Random Glucose 173 H Calcium 8.1 L Phosphorus Magnesium 1.7 L AST Alkaline Phosphatase Creatine Kinase CK-MB (CK-2) Troponin I B-Natriuretic Peptide Total Protein Albumin Urine Protein Urine Blood Urine Urobilinogen Active Medications Albuterol Sulfate (Ventolin 0.083% Nebulizer Soln -) 1 amp NEB Q4H PRN PRN Reason: SHORT OF BREATH/WHEEZING Albuterol/Ipratropium (Duoneb -) 1 amp NEB RQID ON LICENSE OF [facility] Last Admin: 03/28/18 08:20 Dose: 1 amp Budesonide/Formoterol Fumarate (Symbicort 160/4.5mcg -) 2 puff IH BID ON LICENSE OF [facility] Last Admin: 03/28/18 09:44 Dose: Not Given Chlorhexidine Gluconate (Hibiclens For Decolonization -) 1 applic TP HS ON LICENSE OF [facility] Furosemide (Lasix Injection -) 80 mg IVPUSH ONCE ONE Stop: 03/28/18 10:31 Heparin Sodium (Porcine) (Heparin -) 1,000 unit IVPUSH PRN PRN PRN Reason: Heparin Heparin Sodium (Porcine) (Heparin -) 5,000 unit IVPUSH PRN PRN PRN Reason: Heparin Fentanyl 500 mcg/ Dextrose 100 mls @ 10 mls/hr IVPB TITR DONTA Last Admin: 03/28/18 02:53 Dose: 50 mcg/hr, 10 mls/hr Midazolam HCl 100 mg/ Sodium (Chloride) 100 mls @ 2 mls/hr IVPB TITR DONTA; Protocol Last Admin: 03/28/18 02:53 Dose: 2 mg/hr, 2 mls/hr Piperacillin Sod/Tazobactam (Sod 3.375 gm/ Dextrose) 50 mls @ 100 mls/hr IVPB Q8H-IV DONTA; Protocol Heparin Sodium/Dextrose (Heparin Infusion -) 25,000 units in 500 mls @ 20 mls/ hr IVPB TITR DONTA; Protocol Doxycycline Hyclate 100 mg/ (Dextrose) 100 mls @ 100 mls/hr IVPB BID DONTA Stop: 03/29/18 10:14 Insulin Aspart (Novolog Vial Sliding Scale -) 1 vial SQ ACHS DONTA; Protocol Last Admin: 03/28/18 06:45 Dose: 4 units Methylprednisolone Sodium Succinate (Solu-Medrol -) 60 mg IVPUSH Q8H-IV DONTA Last Admin: 03/28/18 09:43 Dose: 60 mg Mupirocin (Bactroban Ointment (For Decolonization) -) 1 applic NS BID ON LICENSE OF [facility] Stop: 04/02/18 09:59 Pantoprazole Sodium (Protonix Iv) 40 mg IVPUSH DAILY ON LICENSE OF [facility] Last Admin: 03/28/18 09:43 Dose: 40 mg Vancomycin HCl (Vancomycin (Pre-Docked)) 1,000 mg IVPB HS DONTA; Protocol A/P: 67 year old female with PMHx CHF, COPD on home O2, LEONIDES on CPAP, IDDM, morbid obesity, HTN, HLD, non-compliance with diuretics presented with shortness of breath, increase lower extremity swelling found to have acute respiratory distress requiring intubation for airway protection admitted to ICU for heart failure/COPD exacerbation. #Chronic Heart Failure (no echocardiogram in system) Workup: --BNP 10,000s --troponin 0.7-->1.1 --ECG NSR no acute ischemic changes --CXR enlarged heart with pulmonary vascular congestion --order echocardiogram Treatment: --IV lasix to achieve a goal of net negative 1-2L daily --strict i/os, daily weights, chemistry panel K>4, Mg>2 #NSTEMI Etiology: likely demand ischemia Workup: --continue to trend troponin 0.7-->1.1 --ECG NSR, no acute ischemic changes --echocardiogram --willl eventually need ischemic eval (nuclear stress vs cardiac cath) prior to discharge Treatment: --continue ASA 81mg, heparin gtt for 48 hours --hold off on beta-yahir therapy in setting of ADHF and noncompliance Management of COPD, respiratory failure and infectious workup per ICU Team. Trevon Emanuel MD
[2018-03-28] MEDS: MUPIROCIN 2% TOPICAL OINTMENT FOR DECOLONIZATION NS SCH ×2 (10:18→22:55)
[2018-03-28] MEDS ORDERED: FUROSEMIDE 40 MG/4 ML INJECTABLE VIAL IVPUSH ONE (10:30)
[2018-03-28] MEDS ORDERED: DOXYCYCLINE INJECTION 100 MG in DEXTROSE 5%-WATER - 100 ML IVPB SCH (11:00)
[2018-03-28] MEDS: HEPARIN INFUSION - 25,000 UNITS/500 ML INFUS.BAG IVPB SCH (12:00)
--- NOTE | 2018-03-28 12:15 | PN ---
Progress Note (short form) - Note Progress Note: ID Consult dictated Acute respiratory failure COPD exacerbation CHF + RSV R/O community acquired v. atypical pneumonia Toxic metabolic encephalopathy Elevated LFTs ? Early L LE cellulitis Leukocytosis Increased protein/ albumin ratio Continue ventilatory support Obtain suctioned sputum c/s, blood c/s, legionella/ pneumococcal antigen Empiric zithromax/ ceftriaxone Steroids/ bronchodilators/ lasix RSV precautions HIV testing when able to consent Critical care time 40min
[2018-03-28] MEDS ORDERED: AZITHROMYCIN IVPB 500 MG in DEXTROSE 5%-WATER - 250 ML IVPB SCH (12:30)
[2018-03-28] MEDS ORDERED: PT OWN MED DRAWER 7, Y5N ONE ×2 (13:02→13:52)
[2018-03-28] MEDS ORDERED: DEXTROSE 5%-WATER 100 ML IVPB ONE (13:03)
[2018-03-28] MEDS: CEFTRIAXONE 2 GM in DEXTROSE 5%-WATER 100 ML IVPB SCH (13:04)
--- NOTE | 2018-03-28 13:43 | CONS ---
DATE OF CONSULTATION: 03/28/2018 The patient is a 67-year-old morbidly obese female with a history of COPD, obstructive sleep apnea, and congestive heart failure evaluated for possible pneumonia. History was obtained from the chart, as she cannot give a history at the present time, as she is intubated in the intensive care unit. She was admitted to the hospital on March 28 2018, with a 2-day history of worsening shortness of breath and lower extremity edema. According to family members, she had been poorly adherent to her diuretic because of frequent urination and noncompliant with the use of CPAP mask. In the emergency room, the patient was treated with Lasix and inhaled bronchodilators. She developed worsening lethargy and altered mentation as well as increasingly labored breathing. She was noted to have a pH of 7.18. The patient ultimately required intubation and mechanical ventilation. At the present time, she is intubated in the intensive care unit on mechanical ventilation. According to the notes, she had been prescribed amoxicillin for 3 days prior to admission for a respiratory tract illness. She is a former smoker; stopped approximately 10 years ago. No recent hospitalizations at [facility]. She apparently was hospitalized at [facility] 1 year ago with a respiratory tract illness. No history of intubation in the past. PAST MEDICAL HISTORY: Positive for morbid obesity, obstructive sleep apnea, COPD, congestive heart failure, asthma, hypertension, diabetes, hyperlipidemia. No known allergies. MEDICATIONS: Albuterol; vancomycin; Zosyn; doxycycline; fentanyl; Lasix; heparin; Protonix. SOCIAL HISTORY: She lives at home. She has a home health aide. She is a former smoker. Occasional EtOH. No documented recent hospitalizations. SYSTEMS REVIEW: Neurologic: Positive for altered mentation. Cardiac: Negative for chest pain or palpitations. Respiratory: As per HPI. Gastrointestinal: Negative for vomiting, diarrhea. Genitourinary: Negative for urinary tract infection. LABORATORY DATA: White count 13.8 with 88 neutrophils, 6 lymphocytes, 5 monocytes; hematocrit 44.5; platelet count 203. BUN 27, creatinine 1.1. Influenza swab negative. RSV swab positive. Urinalysis with 10 white cells. Total bilirubin 0.6, alkaline phosphatase 155, AST 68. Serum protein is 8.6 with an albumin of 3.1. CHEST X-RAY: Pulmonary vascular congestion bilaterally with bibasilar infiltrates versus atelectasis. PHYSICAL EXAMINATION: General: She is intubated. She is sedated, on the respirator. Breathing is nonlabored. Vital Signs: Temperature 98.7, blood pressure 132/76, pulse 89 and regular, respirations 24/min. HEENT: Sclerae anicteric. The patient is orally intubated. Heart Sounds: S1, S2. Lungs: Air entry bilaterally with mild wheezing bilaterally. Abdomen: Obese. No tenderness elicited. No mass, rebound, or rigidity. Extremities: Positive for edema, chronic venous stasis dermatitis. Lower extremities bilaterally, there is mild erythema and warmth present on the left pretibial area. Genitourinary: A Vlilalba catheter is in place. Urine is not grossly purulent-appearing. IMPRESSION: 1. Acute respiratory failure. 2. Chronic obstructive pulmonary disease exacerbation. 3. Congestive heart failure. 4. Positive respiratory syncytial virus. 5. Rule out community-acquired versus atypical pneumonia. 6. Toxic metabolic encephalopathy. 7. Elevated liver enzymes, possibly secondary to sepsis. 8. Rule out early left lower extremity cellulitis. 9. Leukocytosis. 10. Increased protein:albumin ratio. 11. Diabetes mellitus. Continue ventilatory support. Obtain suctioned sputum cultures, blood cultures, legionella and pneumococcal antigens. Empiric treatment with Zithromax and ceftriaxone for community-acquired versus atypical pneumonia. EKG reviewed; QT interval of 439. Continue steroids, bronchodilators, Lasix, RSV precautions, HIV testing when able to consent. CRITICAL CARE TIME SPENT: 40 minutes Thank you for the kind referral. JOSE A PEGUERO M.D. [id number]
[2018-03-28] MEDS ORDERED: PROPOFOL 1,000,000 MCG/100 ML VIAL ONE (14:01)
[2018-03-28] MEDS: PROPOFOL 1,000,000 MCG/100 ML VIAL IVPB SCH ×2 (14:11→23:15)
--- NOTE | 2018-03-28 16:35 | EKG ---
Test Reason : Blood Pressure : / mmHG Vent. Rate : 074 BPM Atrial Rate : 074 BPM P-R Int : 132 ms QRS Dur : 088 ms QT Int : 396 ms P-R-T Axes : 051 028 -47 degrees QTc Int : 439 ms NORMAL SINUS RHYTHM LEFT ATRIAL ENLARGEMENT T WAVE ABNORMALITY, CONSIDER ANTERIOR ISCHEMIA T WAVE ABNORMALITY, CONSIDER INFERIOR ISCHEMIA ABNORMAL ECG Confirmed by MD TRIPLETT MOYSES ([id number]) on 03/28/2018 4:34:54 PM Referred By: Erika EWSTFALL Confirmed By:WILLIAM TRIPLETT MD
--- NOTE | 2018-03-28 16:38 | EKG ---
Test Reason : Blood Pressure : / mmHG Vent. Rate : 089 BPM Atrial Rate : 089 BPM P-R Int : 142 ms QRS Dur : 084 ms QT Int : 370 ms P-R-T Axes : -08 047 -31 degrees QTc Int : 450 ms NORMAL SINUS RHYTHM T WAVE ABNORMALITY, CONSIDER ANTERIOR ISCHEMIA ABNORMAL ECG Confirmed by MD UZIEL, WILLIAM ([id number]) on 03/28/2018 4:37:54 PM Referred By: Confirmed By:WILLIAM TRIPLETT MD
--- NOTE | 2018-03-28 16:46 | EKG ---
Test Reason : Blood Pressure : / mmHG Vent. Rate : 107 BPM Atrial Rate : 107 BPM P-R Int : 128 ms QRS Dur : 092 ms QT Int : 334 ms P-R-T Axes : 065 043 032 degrees QTc Int : 445 ms SINUS TACHYCARDIA BIATRIAL ENLARGEMENT POSSIBLE INFERIOR INFARCT , AGE UNDETERMINED T WAVE ABNORMALITY, CONSIDER ANTERIOR ISCHEMIA ABNORMAL ECG NO PREVIOUS ECGS AVAILABLE Confirmed by MD UZIEL, WILLIAM ([id number]) on 03/28/2018 4:46:26 PM Referred By: Confirmed By:WILLIAM TRIPLETT MD
[2018-03-28] MEDS ORDERED: CHLORHEXIDINE GLUCONATE 0.12% 15ML CUP MM SCH (17:30)
[2018-03-28] MEDS ORDERED: CHLORHEXIDINE GLUCONATE 0.12% 15ML CUP MM ONE (17:39)
[2018-03-28] MEDS ORDERED: PIPERACILLIN/TAZOB 3.375 GM 3.375 GM in DEXTROSE 5%-WATER - 50 ML IVPB SCH (18:00)
[2018-03-28] MEDS ORDERED: INSULIN SLIDING SCALE (NOVOLOG) 1 VIAL SQ SCH (18:00)
--- NOTE | 2018-03-28 18:49 | PN ---
Progress Note (short form) - Note Progress Note: SUBJECTIVE: Sedated, Intubated OBJECTIVE Afebrile, Intubated/Ventilated 60%/TV 500/RR 25/PEEP 5 Last Vital Signs Temp Pulse Resp BP Pulse Ox 98.7 F 80 24 H 133/65 99 03/28/18 14:00 03/28/18 18:00 03/28/18 18:00 03/28/18 18:00 03/28/18 04:19 HEENT - Intubated. Atraumatic. Heart - S1, S2, RRR Lungs - Good air entry bilaterally with wheeze. Abdomen - High BMI, Soft. Bowel Sounds normal. Extremities - edema++. Neuro - sedated. NATHANIEL. Laboratory Results - last 24 hr 03/27/18 03/27/18 03/27/18 21:37 21:37 21:37 WBC 13.1 H RBC 5.52 H Hgb 14.9 Hct 46.9 H MCV 85.1 MCH 27.0 MCHC 31.7 L RDW 18.1 H Plt Count 270 MPV 9.1 Absolute Neuts (auto) 11.1 H Neutrophils % 84.8 H Lymphocytes % 5.1 L Monocytes % 9.6 Eosinophils % 0.0 Basophils % 0.5 Nucleated RBC % 0 Platelet Estimate Adequate Platelet Comment PTT (Actin FS) Anticoagulation Therapy Puncture Site ABG pH ABG pCO2 at Pt Temp ABG pO2 at Pt Temp ABG HCO3 ABG O2 Sat (Measured) ABG O2 Content ABG Base Excess Dwayne Test VBG pH 7.18 L* POC VBG pCO2 100.0 H* POC VBG pO2 35.4 Mixed VBG HCO3 35.5 H Carboxyhemoglobin Methemoglobin O2 Delivery Device Oxygen Flow Rate Vent Mode Vent Rate Mechanical Rate Pressure Support Vent Sodium 139 Potassium 4.7 Chloride 100 Carbon Dioxide 34 H Anion Gap 6 L BUN 25 H Creatinine 1.3 Creat Clearance w eGFR 41.11 Random Glucose 148 H Calcium 8.8 Phosphorus 5.6 H Magnesium 1.8 Total Bilirubin 0.6 AST 68 H ALT 61 Alkaline Phosphatase 155 H Creatine Kinase 264 H Creatine Kinase Index 1.4 CK-MB (CK-2) 3.8 H Troponin I 0.79 H* B-Natriuretic Peptide 21394.8 H Total Protein 8.6 H Albumin 3.1 L Urine Color Urine Appearance Urine pH Ur Specific [place] Urine Protein Urine Glucose (UA) Urine Ketones Urine Blood Urine Nitrite Urine Bilirubin Urine Urobilinogen Ur Leukocyte Esterase Urine WBC (Auto) Urine RBC (Auto) Ur Epithelial Cells Urine Bacteria Hyaline Casts Urine Mucus Influenza A (Rapid) Influenza B (Rapid) RSV Rapid 03/27/18 03/27/18 03/27/18 21:43 22:30 23:30 WBC RBC Hgb Hct MCV MCH MCHC RDW Plt Count MPV Absolute Neuts (auto) Neutrophils % Lymphocytes % Monocytes % Eosinophils % Basophils % Nucleated RBC % Platelet Estimate Platelet Comment PTT (Actin FS) Anticoagulation Therapy No Result Required. Puncture Site Right radial ABG pH 7.20 L* ABG pCO2 at Pt Temp 86.7 H* ABG pO2 at Pt Temp 68.6 L ABG HCO3 32.8 H ABG O2 Sat (Measured) 87.4 L ABG O2 Content 17.6 ABG Base Excess 1.8 Dwayne Test Positive VBG pH 7.17 L* POC VBG pCO2 97.4 H* POC VBG pO2 45.9 D Mixed VBG HCO3 33.8 H Carboxyhemoglobin Methemoglobin O2 Delivery Device Bipap Oxygen Flow Rate 50% Vent Mode No Result Required. Vent Rate 16 Mechanical Rate No Result Required. Pressure Support Vent No Result Required. Sodium Potassium Chloride Carbon Dioxide Anion Gap BUN Creatinine Creat Clearance w eGFR Random Glucose Calcium Phosphorus Magnesium Total Bilirubin AST ALT Alkaline Phosphatase Creatine Kinase Creatine Kinase Index CK-MB (CK-2) Troponin I B-Natriuretic Peptide Total Protein Albumin Urine Color Cyndie Urine Appearance Cloudy Urine pH 5.0 Ur Specific [place] 1.018 Urine Protein 2+ H Urine Glucose (UA) Negative Urine Ketones Negative Urine Blood 2+ H Urine Nitrite Negative Urine Bilirubin Negative Urine Urobilinogen 2.0 H Ur Leukocyte Esterase Trace Urine WBC (Auto) 10 Urine RBC (Auto) 1 Ur Epithelial Cells Rare Urine Bacteria Rare Hyaline Casts 15 Urine Mucus Rare Influenza A (Rapid) Influenza B (Rapid) RSV Rapid 03/28/18 03/28/18 03/28/18 02:00 02:40 02:40 WBC RBC Hgb Hct MCV MCH MCHC RDW Plt Count MPV Absolute Neuts (auto) Neutrophils % Lymphocytes % Monocytes % Eosinophils % Basophils % Nucleated RBC % Platelet Estimate Platelet Comment PTT (Actin FS) Anticoagulation Therapy Puncture Site ABG pH ABG pCO2 at Pt Temp ABG pO2 at Pt Temp ABG HCO3 ABG O2 Sat (Measured) ABG O2 Content ABG Base Excess Dwayne Test VBG pH 7.24 L* POC VBG pCO2 81.2 H* POC VBG pO2 51.6 H Mixed VBG HCO3 33.4 H Carboxyhemoglobin 1.3 Methemoglobin 0.3 L O2 Delivery Device Oxygen Flow Rate Vent Mode Vent Rate Mechanical Rate Pressure Support Vent Sodium Potassium Chloride Carbon Dioxide Anion Gap BUN Creatinine Creat Clearance w eGFR Random Glucose Calcium Phosphorus Magnesium Total Bilirubin AST ALT Alkaline Phosphatase Creatine Kinase Creatine Kinase Index CK-MB (CK-2) Troponin I 1.12 H* B-Natriuretic Peptide Total Protein Albumin Urine Color Urine Appearance Urine pH Ur Specific [place] Urine Protein Urine Glucose (UA) Urine Ketones Urine Blood Urine Nitrite Urine Bilirubin Urine Urobilinogen Ur Leukocyte Esterase Urine WBC (Auto) Urine RBC (Auto) Ur Epithelial Cells Urine Bacteria Hyaline Casts Urine Mucus Influenza A (Rapid) Influenza B (Rapid) RSV Rapid 03/28/18 03/28/18 03/28/18 05:15 05:15 06:00 WBC 13.8 H RBC 5.23 H Hgb 13.6 Hct 44.5 MCV 85.0 MCH 26.0 MCHC 30.6 L RDW 17.9 H Plt Count 203 D MPV 9.5 Absolute Neuts (auto) 12.1 H Neutrophils % 88.1 H Lymphocytes % 6.3 L D Monocytes % 5.2 Eosinophils % 0.0 Basophils % 0.4 Nucleated RBC % 0 Platelet Estimate Platelet Comment PTT (Actin FS) Anticoagulation Therapy Puncture Site ABG pH ABG pCO2 at Pt Temp ABG pO2 at Pt Temp ABG HCO3 ABG O2 Sat (Measured) ABG O2 Content ABG Base Excess Dwayne Test VBG pH POC VBG pCO2 POC VBG pO2 Mixed VBG HCO3 Carboxyhemoglobin Methemoglobin O2 Delivery Device Oxygen Flow Rate Vent Mode Vent Rate Mechanical Rate Pressure Support Vent Sodium 140 Potassium 4.2 Chloride 100 Carbon Dioxide 32 Anion Gap 8 BUN 27 H Creatinine 1.1 Creat Clearance w eGFR 49.85 Random Glucose 173 H Calcium 8.1 L Phosphorus 3.8 Magnesium 1.7 L Total Bilirubin AST ALT Alkaline Phosphatase Creatine Kinase Creatine Kinase Index CK-MB (CK-2) Troponin I B-Natriuretic Peptide Total Protein Albumin Urine Color Urine Appearance Urine pH Ur Specific [place] Urine Protein Urine Glucose (UA) Urine Ketones Urine Blood Urine Nitrite Urine Bilirubin Urine Urobilinogen Ur Leukocyte Esterase Urine WBC (Auto) Urine RBC (Auto) Ur Epithelial Cells Urine Bacteria Hyaline Casts Urine Mucus Influenza A (Rapid) Negative Influenza B (Rapid) Negative RSV Rapid 03/28/18 03/28/18 03/28/18 06:00 06:05 10:14 WBC RBC Hgb Hct MCV MCH MCHC RDW Plt Count MPV Absolute Neuts (auto) Neutrophils % Lymphocytes % Monocytes % Eosinophils % Basophils % Nucleated RBC % Platelet Estimate Platelet Comment PTT (Actin FS) Anticoagulation Therapy No Result Required. Puncture Site Right radial ABG pH 7.44 D ABG pCO2 at Pt Temp 47.8 H D ABG pO2 at Pt Temp 83.7 D ABG HCO3 31.9 H ABG O2 Sat (Measured) 96.7 ABG O2 Content 18.9 ABG Base Excess 7.0 H Dwayne Test Positive VBG pH POC VBG pCO2 POC VBG pO2 Mixed VBG HCO3 Carboxyhemoglobin Methemoglobin O2 Delivery Device Vent Oxygen Flow Rate 60% Vent Mode No Result Required. Vent Rate No Result Required. Mechanical Rate No Result Required. Pressure Support Vent 450 Sodium Potassium Chloride Carbon Dioxide Anion Gap BUN Creatinine Creat Clearance w eGFR Random Glucose Calcium Phosphorus Magnesium Total Bilirubin AST ALT Alkaline Phosphatase Creatine Kinase Creatine Kinase Index CK-MB (CK-2) Troponin I 0.63 H* B-Natriuretic Peptide Total Protein Albumin Urine Color Urine Appearance Urine pH Ur Specific [place] Urine Protein Urine Glucose (UA) Urine Ketones Urine Blood Urine Nitrite Urine Bilirubin Urine Urobilinogen Ur Leukocyte Esterase Urine WBC (Auto) Urine RBC (Auto) Ur Epithelial Cells Urine Bacteria Hyaline Casts Urine Mucus Influenza A (Rapid) Influenza B (Rapid) RSV Rapid Positive 03/28/18 03/28/18 10:14 18:00 WBC RBC Hgb Hct MCV MCH MCHC RDW Plt Count MPV Absolute Neuts (auto) Neutrophils % Lymphocytes % Monocytes % Eosinophils % Basophils % Nucleated RBC % Platelet Estimate Platelet Comment PTT (Actin FS) 28.7 31.6 Anticoagulation Therapy Puncture Site ABG pH ABG pCO2 at Pt Temp ABG pO2 at Pt Temp ABG HCO3 ABG O2 Sat (Measured) ABG O2 Content ABG Base Excess Dwayne Test VBG pH POC VBG pCO2 POC VBG pO2 Mixed VBG HCO3 Carboxyhemoglobin Methemoglobin O2 Delivery Device Oxygen Flow Rate Vent Mode Vent Rate Mechanical Rate Pressure Support Vent Sodium Potassium Chloride Carbon Dioxide Anion Gap BUN Creatinine Creat Clearance w eGFR Random Glucose Calcium Phosphorus Magnesium Total Bilirubin AST ALT Alkaline Phosphatase Creatine Kinase Creatine Kinase Index CK-MB (CK-2) Troponin I B-Natriuretic Peptide Total Protein Albumin Urine Color Urine Appearance Urine pH Ur Specific [place] Urine Protein Urine Glucose (UA) Urine Ketones Urine Blood Urine Nitrite Urine Bilirubin Urine Urobilinogen Ur Leukocyte Esterase Urine WBC (Auto) Urine RBC (Auto) Ur Epithelial Cells Urine Bacteria Hyaline Casts Urine Mucus Influenza A (Rapid) Influenza B (Rapid) RSV Rapid Current Medications Generic Name Dose Route Start Last Admin Trade Name Freq PRN Reason Stop Dose Admin Albuterol Sulfate 1 amp 03/28/18 00:54 Ventolin 0.083% Nebulizer Soln - NEB Q4H PRN SHORT OF BREATH/WHEEZING Albuterol/Ipratropium 1 amp 03/28/18 08:00 03/28/18 16:15 Duoneb - NEB 1 amp RQID DONTA Administration Budesonide/Formoterol Fumarate 2 puff 03/28/18 01:00 03/28/18 09:44 Symbicort 160/4.5mcg - IH Not Given BID DONTA Chlorhexidine Gluconate 1 applic 03/28/18 22:00 Hibiclens For Decolonization - TP HS DONTA Heparin Sodium (Porcine) 1,000 unit 03/28/18 05:30 Heparin - IVPUSH PRN PRN Heparin Heparin Sodium (Porcine) 5,000 unit 03/28/18 05:30 Heparin - IVPUSH PRN PRN Heparin Fentanyl 500 mcg/ Dextrose 100 mls @ 10 mls/hr 03/28/18 01:30 03/28/18 02:53 IVPB 50 mcg/hr TITR DONTA 10 mls/hr Administration 50 MCG/HR Heparin Sodium/Dextrose 25,000 units in 500 mls @ 20 mls/hr 03/28/18 05:30 12:00 Heparin Infusion - IVPB 1,000 unit/hr TITR DONTA 20 mls/hr Administration Protocol 1,000 UNIT/HR Ceftriaxone Sodium 2 gm/ 100 mls @ 100 mls/hr 03/28/18 12:30 03/28/18 13:04 Dextrose IVPB 100 mls/hr DAILY DONTA Administration Protocol Propofol 1,000,000 mcg in 100 mls @ 8.336 mls/hr 03/28/18 14:00 03/28/18 14: 11 Diprivan - IVPB 10 mcg/kg/min TITR DONTA 8.336 mls/hr Administration Protocol 10 MCG/KG/MIN Azithromycin 500 mg in 250 mls @ 250 mls/hr 03/28/18 14:36 Zithromax 500mg Ivpb (Pre-Docked) IVPB DAILY DONTA Insulin Aspart 1 vial 03/28/18 22:00 Novolog Vial Sliding Scale - SQ ACHS DONTA Protocol Methylprednisolone Sodium Succinate 60 mg 03/28/18 10:00 03/28/18 17:18 Solu-Medrol - IVPUSH 60 mg Q8H-IV DONTA Administration Mupirocin 1 applic 03/28/18 10:00 03/28/18 10:18 Bactroban Ointment (For Decolonization) - NS 04/02/18 09:59 1 applic BID DONTA Administration Pantoprazole Sodium 40 mg 03/28/18 01:29 03/28/18 09:43 Protonix Iv IVPUSH 40 mg DAILY DONTA Administration ASSESSMENT/PLAN: 67 year old female with High BMI, COPD, LEONIDES (poorly compliant with home BiPAP), DM 2, HTN, HLD, presented to ED with complaints of 2 week history of worsening SOB. In the ED, she had respiratory failure and decreased mentation prompting intubation and mechanical ventilation after failing BiPAP trial. Her son reported poor compliance with Lasix for several months. 1. Acute hypoxic hypercapnic respiratory failure secondary to: A. CHF (unknown diastolic versus sytolic) BNP 10,603 Echo pending CXR - congestion, improved after initiation of lasix diuresis. Intubated and Sedated. Cardiology consulted. Continue Lasix diuresis Daily I/Os, weight, electrolyte monitoring. B. Acute exacerbation COPD/OHS Continue Bronchodilator Nebs, Solumedrol and empiric Abx therapy with Ceftriaxone and Azithromycin. Flu negatigve/RSV positive Legionella/Strep Ag neg 2. NSTEMI likely sec to demand ischemia. Tmax 1.12 ECG - SR rate 89, non-specific T wave abnormality. Evaluated by Cardio - for heparin drip for 48 hours and NM stress vs Cardiac Cath prior to discharge. 3. DM 2 - insulin sliding scale. 4. HTN - anti-hypertensives currently held. DVT Px - Heparin drip GI Px - Protonix Visit type - Emergency Visit Emergency Visit: Yes ED Registration Date: 03/28/18 Care time: The patient presented to the Emergency Department on the above date and was hospitalized for further evaluation of their emergent condition. - New Patient This patient is new to me today: Yes Date on this admission: 03/28/18 - Critical Care Critical Care patient: Yes Total Critical Care Time (in minutes): 40 Critical Care Statement: The care of this patient involved high complexity decision making to prevent further life threatening deterioration of the patient 's condition and/or to evaluate & treat vital organ system(s) failure or risk of failure.
[2018-03-28] MEDS ORDERED: CHLORHEXIDINE GLUCONATE 4% CLEANSER FOR DECOLONIZATION TP SCH ×2 (22:00)
[2018-03-28] MEDS ORDERED: VANCOMYCIN 1 GM in D5W (PRE-DOCKED) 1,000 MG/250 ML IVPB SCH (22:00)
[2018-03-28] MEDS: CHLORHEXIDINE GLUCONATE 4% CLEANSER FOR DECOLONIZATION TP SCH (22:56)
[2018-03-29] MEDS ORDERED: fentaNYL CITRATE 250 MCG/5 ML VIAL ONE ×4 (02:17→20:03)
[2018-03-29] MEDS: methylPREDNISolone NA SUCC 125 MG/2 ML VIAL IVPUSH SCH ×2 (02:34→09:54)
[2018-03-29] MEDS: FENTANYL INJECTION 500 MCG in DEXTROSE 5%-WATER - 90 ML IVPB SCH ×2 (02:35→22:01)
[2018-03-29] MEDS: PROPOFOL 1,000,000 MCG/100 ML VIAL IVPB SCH ×4 (05:43→22:02)
[2018-03-29 06:02] LABS: BASO % 0.3 % (0-2.0); HEMATOCRIT 40.5 % (32.4-45.2); HEMOGLOBIN 13.5 GM/dL (10.7-15.3); LYMPH % 3.8 % (8-40); MCH 27.2 pg (25.7-33.7); MCHC 33.3 g/dl (32.0-36.0); MEAN CELL VOLUME 81.7 fl (80-96); MONO % 7.2 % (3.8-10.2); NEUT % 88.7 % (42.8-82.8); PLATELET COUNT 239 K/MM3 (134-434); RBC 4.95 M/mm3 (3.60-5.2); RDW 17.3 % (11.6-15.6); WHITE BLOOD COUNT 12.4 K/mm3 (4.0-10.0)
[2018-03-29] MEDS: INSULIN SLIDING SCALE (NOVOLOG) 1 VIAL SQ SCH ×4 (06:14→22:28)
[2018-03-29 06:26] LABS: ARTERIAL BLD GAS O2 SATURATION 98.4 % (90-98.9); ARTERIAL BLOOD GAS BASE EXCESS 10.9 meq/l (-2-2); ARTERIAL BLOOD GAS PCO2 42.3 mmHg (35-45); ARTERIAL BLOOD GAS pH 7.53 (7.35-7.45)
[2018-03-29 06:35] LABS: ALBUMIN 2.3 g/dl (3.4-5.0); ALK PHOS 91 U/L (45-117); ANION GAP 8 MMOL/L (8-16); BILIRUBIN,TOTAL 0.8 mg/dL (0.2-1); BLOOD UREA NITROGEN 32 mg/dL (7-18); CALCIUM 8.1 mg/dL (8.5-10.1); CHLORIDE 95 mmol/L (98-107); CO2 34 mmol/L (21-32); CREATININE 0.9 mg/dL (0.55-1.3); GLUCOSE,RANDOM 249 mg/dL (74-106); MAGNESIUM 1.8 mg/dL (1.8-2.4); PHOSPHOROUS 3.6 mg/dL (2.5-4.9); POTASSIUM 3.9 mmol/L (3.5-5.1); SGOT/AST 47 U/L (15-37); SGPT/ALT 48 U/L (13-61); SODIUM 137 mmol/L (136-145); TOT PROT 6.9 g/dl (6.4-8.2)
[2018-03-29 07:14] LABS: ALLENS TEST POSITIVE
[2018-03-29] MEDS: ALBUTEROL SO4 2.5/IPRATROPIUM 0.5 INH SOL 3 ML VIAL.NEB. NEB SCH ×4 (07:50→21:00)
[2018-03-29] MEDS ORDERED: DEXTROSE 5%-WATER 100 ML IVPB ONE (09:47)
[2018-03-29] MEDS: HEPARIN INFUSION - 25,000 UNITS/500 ML INFUS.BAG IVPB SCH (09:53)
[2018-03-29] MEDS: PANTOPRAZOLE SODIUM 40 MG VIAL IVPUSH SCH (09:53)
[2018-03-29] MEDS: MUPIROCIN 2% TOPICAL OINTMENT FOR DECOLONIZATION NS SCH ×2 (09:53→22:01)
[2018-03-29] MEDS: CEFTRIAXONE 2 GM in DEXTROSE 5%-WATER 100 ML IVPB SCH (09:54)
[2018-03-29] MEDS: AZITHROMYCIN IVPB 500 MG/250 ML BAG IVPB SCH (09:55)
--- NOTE | 2018-03-29 10:20 | PN ---
Progress Note, Physician History of Present Illness: Sedated on ventilator Low grade temp 100 Breathing non labored Minimal tracheal secretions being suctioned WBC 12.4 - Current Medication List Current Medications: Active Medications Albuterol Sulfate (Ventolin 0.083% Nebulizer Soln -) 1 amp NEB Q4H PRN PRN Reason: SHORT OF BREATH/WHEEZING Albuterol/Ipratropium (Duoneb -) 1 amp NEB RQID DONTA Last Admin: 03/28/18 20:45 Dose: 1 amp Chlorhexidine Gluconate (Hibiclens For Decolonization -) 1 applic TP HS DONTA Last Admin: 03/28/18 22:56 Dose: 1 applic Heparin Sodium (Porcine) (Heparin -) 1,000 unit IVPUSH PRN PRN PRN Reason: Heparin Heparin Sodium (Porcine) (Heparin -) 5,000 unit IVPUSH PRN PRN PRN Reason: Heparin Last Admin: 03/28/18 19:00 Dose: 5,000 unit Fentanyl 500 mcg/ Dextrose 100 mls @ 10 mls/hr IVPB TITR DONTA Last Admin: 03/29/18 02:35 Dose: 50 mcg/hr, 10 mls/hr Heparin Sodium/Dextrose (Heparin Infusion -) 25,000 units in 500 mls @ 20 mls/ hr IVPB TITR DONTA; Protocol Last Admin: 03/29/18 09:53 Dose: 1,150 unit/hr, 23 mls/hr Ceftriaxone Sodium 2 gm/ (Dextrose) 100 mls @ 100 mls/hr IVPB DAILY DONTA; Protocol Last Admin: 03/29/18 09:54 Dose: 100 mls/hr Propofol (Diprivan -) 1,000,000 mcg in 100 mls @ 8.336 mls/hr IVPB TITR DONTA; Protocol Last Admin: 03/29/18 09:56 Dose: 40 mcg/kg/min, 33.346 mls/hr Azithromycin (Zithromax 500mg Ivpb (Pre-Docked)) 500 mg in 250 mls @ 250 mls/ hr IVPB DAILY DONTA Last Admin: 03/29/18 09:55 Dose: 250 mls/hr Insulin Aspart (Novolog Vial Sliding Scale -) 1 vial SQ ACHS DONTA; Protocol Last Admin: 03/29/18 06:14 Dose: 4 units Methylprednisolone Sodium Succinate (Solu-Medrol -) 60 mg IVPUSH Q8H-IV [facility] Last Admin: 03/29/18 09:54 Dose: 60 mg Mupirocin (Bactroban Ointment (For Decolonization) -) 1 applic NS BID [facility] Stop: 04/02/18 09:59 Last Admin: 03/29/18 09:53 Dose: 1 applic Pantoprazole Sodium (Protonix Iv) 40 mg IVPUSH DAILY [facility] Last Admin: 03/29/18 09:53 Dose: 40 mg - Objective Vital Signs: Vital Signs Temperature 100 F H 03/29/18 06:00 Pulse Rate 83 03/29/18 08:50 Respiratory Rate 22 H 03/29/18 08:00 Blood Pressure 112/60 03/29/18 08:00 O2 Sat by Pulse Oximetry (%) 99 03/29/18 08:50 Constitutional: Yes: No Distress, Obese Eyes: Yes: Conjunctiva Clear Cardiovascular: Yes: Regular Rate and Rhythm, S1, S2 Respiratory: Yes: Mechanically Ventilated Gastrointestinal: Yes: Normal Bowel Sounds, Soft, Abdomen, Obese. No: Tenderness Extremities: Yes: Other (chronic stasis dermatitis LE bilaterally; slight erythema/ warmth L LE) Edema: Yes Labs: CBC, BMP 03/29/18 05:15 03/29/18 05:15 Assessment/Plan Acute respiratory failure Decompensated CHF Acute exacerbation COPD R/O community acquired v. atypical pneumonia +RSV NSTEMI Toxic metabolic encephalopathy Elevated LFTs ? Cellulitis L LE Leukocytosis Await c/s Continue ventilatory support Empiric ceftriaxone/ zithromax Steroids/ bronchodilators RSV precautions HIV testing when able to give consent Critical care time 35min
--- NOTE | 2018-03-29 11:13 | PN ---
Physical Exam: SUBJECTIVE: Patient seen and examined at bedside this morning in ICU. She is sedated with propofol, fentanyl, intubated on ventilator. OBJECTIVE: Vital Signs Period Temp Pulse Resp BP Sys/Garner Pulse Ox Last 24 Hr 98.2 F-100 F 78-98 20-24 106-134/60-86 99-99 GENERAL: Intubated. Sedated. HEAD: Normocephalic, atraumatic EYES: Pupils 2mm b/l, equal, round and reactive to light. NECK: Supple without lymphadenopathy LUNGS: Patient is intubated, on ventilator. B/L rales, no wheezing auscultated. HEART: Regular rate and rhythm, + S1 and S2 auscultated. ABDOMEN: Obese. Soft. normoactive bowel sounds, no guarding, no rebound, no masses. No hepatomegaly or splenomegaly. EXTREMITIES: 2+ radial pulses b/l, 1+ dorsalis pedis pulses b/l. chronic venous stasis changes b/l lower extremities. 1+ pitting edema b/l. NEUROLOGICAL: Good muscle tone B/L upper and lower extremities.. Grimaces to sternal rub. Laboratory Results - last 24 hr 03/28/18 03/28/18 03/28/18 10:14 10:14 18:00 WBC RBC Hgb Hct MCV MCH MCHC RDW Plt Count MPV Absolute Neuts (auto) Neutrophils % Lymphocytes % Monocytes % Eosinophils % Basophils % Nucleated RBC % PTT (Actin FS) 28.7 31.6 Puncture Site ABG pH ABG pCO2 at Pt Temp ABG pO2 at Pt Temp ABG HCO3 ABG O2 Sat (Measured) ABG O2 Content ABG Base Excess Dwayne Test O2 Delivery Device Oxygen Flow Rate Vent Mode Vent Rate Mechanical Rate PEEP Pressure Support Vent Sodium Potassium Chloride Carbon Dioxide Anion Gap BUN Creatinine Creat Clearance w eGFR Random Glucose Calcium Phosphorus Magnesium Total Bilirubin AST ALT Alkaline Phosphatase Troponin I 0.63 H* Total Protein Albumin 03/29/18 03/29/18 03/29/18 00:40 05:15 05:15 WBC 12.4 H RBC 4.95 Hgb 13.5 Hct 40.5 MCV 81.7 MCH 27.2 MCHC 33.3 RDW 17.3 H Plt Count 239 MPV 10.0 Absolute Neuts (auto) 11.0 H Neutrophils % 88.7 H Lymphocytes % 3.8 L D Monocytes % 7.2 Eosinophils % 0.0 Basophils % 0.3 Nucleated RBC % 0 PTT (Actin FS) 53.1 H Puncture Site ABG pH ABG pCO2 at Pt Temp ABG pO2 at Pt Temp ABG HCO3 ABG O2 Sat (Measured) ABG O2 Content ABG Base Excess Dwayne Test O2 Delivery Device Oxygen Flow Rate Vent Mode Vent Rate Mechanical Rate PEEP Pressure Support Vent Sodium 137 Potassium 3.9 Chloride 95 L Carbon Dioxide 34 H Anion Gap 8 BUN 32 H Creatinine 0.9 Creat Clearance w eGFR > 60 Random Glucose 249 H Calcium 8.1 L Phosphorus 3.6 Magnesium 1.8 Total Bilirubin 0.8 AST 47 H ALT 48 Alkaline Phosphatase 91 Troponin I Total Protein 6.9 Albumin 2.3 L 03/29/18 05:33 WBC RBC Hgb Hct MCV MCH MCHC RDW Plt Count MPV Absolute Neuts (auto) Neutrophils % Lymphocytes % Monocytes % Eosinophils % Basophils % Nucleated RBC % PTT (Actin FS) Puncture Site Right radial ABG pH 7.53 H ABG pCO2 at Pt Temp 42.3 ABG pO2 at Pt Temp 117.0 H D ABG HCO3 34.8 H ABG O2 Sat (Measured) 98.4 ABG O2 Content 18.7 ABG Base Excess 10.9 H Dwayne Test Positive O2 Delivery Device Vent Oxygen Flow Rate 60% Vent Mode Ac/prvc Vent Rate 24 Mechanical Rate Yes PEEP 5.0 Pressure Support Vent 450 Sodium Potassium Chloride Carbon Dioxide Anion Gap BUN Creatinine Creat Clearance w eGFR Random Glucose Calcium Phosphorus Magnesium Total Bilirubin AST ALT Alkaline Phosphatase Troponin I Total Protein Albumin Active Medications Generic Name Dose Route Start Last Admin Trade Name Freq PRN Reason Stop Dose Admin Albuterol Sulfate 1 amp 03/28/18 00:54 Ventolin 0.083% Nebulizer Soln - NEB Q4H PRN SHORT OF BREATH/WHEEZING Albuterol/Ipratropium 1 amp 03/28/18 08:00 03/29/18 07:50 Duoneb - NEB 1 amp RQID DONTA Administration Chlorhexidine Gluconate 1 applic 03/28/18 22:00 03/28/18 22:56 Hibiclens For Decolonization - TP 1 applic HS DONTA Administration Heparin Sodium (Porcine) 1,000 unit 03/28/18 05:30 Heparin - IVPUSH PRN PRN Heparin Heparin Sodium (Porcine) 5,000 unit 03/28/18 05:30 03/28/18 19:00 Heparin - IVPUSH 5,000 unit PRN PRN Administration Heparin Fentanyl 500 mcg/ Dextrose 100 mls @ 10 mls/hr 03/28/18 01:30 03/29/18 02:35 IVPB 50 mcg/hr TITR DONTA 10 mls/hr Administration 50 MCG/HR Heparin Sodium/Dextrose 25,000 units in 500 mls @ 20 mls/hr 03/28/18 05:30 09:53 Heparin Infusion - IVPB 1,150 unit/hr TITR DONTA 23 mls/hr Administration Protocol 1,000 UNIT/HR Ceftriaxone Sodium 2 gm/ 100 mls @ 100 mls/hr 03/28/18 12:30 03/29/18 09:54 Dextrose IVPB 100 mls/hr DAILY DONTA Administration Protocol Propofol 1,000,000 mcg in 100 mls @ 8.336 mls/hr 03/28/18 14:00 03/29/18 09: 56 Diprivan - IVPB 40 mcg/kg/min TITR DONTA 33.346 mls/hr Administration Protocol 10 MCG/KG/MIN Azithromycin 500 mg in 250 mls @ 250 mls/hr 03/28/18 14:36 03/29/18 09:55 Zithromax 500mg Ivpb (Pre-Docked) IVPB 250 mls/hr DAILY DONTA Administration Insulin Aspart 1 vial 03/28/18 22:00 03/29/18 06:14 Novolog Vial Sliding Scale - SQ 4 units ACHS DONTA Administration Protocol Methylprednisolone Sodium Succinate 60 mg 03/28/18 10:00 03/29/18 09:54 Solu-Medrol - IVPUSH 60 mg Q8H-IV DONTA Administration Mupirocin 1 applic 03/28/18 10:00 03/29/18 09:53 Bactroban Ointment (For Decolonization) - NS 04/02/18 09:59 1 applic BID DOTNA Administration Pantoprazole Sodium 40 mg 03/28/18 01:29 03/29/18 09:53 Protonix Iv IVPUSH 40 mg DAILY DONTA Administration ASSESSMENT/PLAN: Patient is a 67 year old female with history of morbid obesity, COPD, LEONIDES ( poorly compliant with home CPAP), diabetes mellitus, hypertension, hyperlipidemia, presents with complaint of shortness of breath worsening over the past two weeks. Acute hypoxic hypercapnic respiratory failure -Likely due to CHF exacerbation secondary to poor home medication compliance vs community acquired pneumonia -Patient is intubated. FiO2 60%, PEEP 5, Peak 45, TV 450, RR 24. Sedated with Propofol, and Fentanyl drip. -Duonebs QID -Lasix 80mg IV BID -Solu-Medrol 40mg IV daily -Symbicort 160/ 4.5 2 puffs BID -Ceftriaxone 2g IV daily (day 2) -Azithromycin 500 mg IV daily (day 2) -Urine negative for legionella antigens -RSV positive, influenza swab negative. -Blood cultures preliminary negative at 24 hours -ID consult (Dr. Ayala) appreciated. -Pulmonology consult (Dr. Paige) appreciated. -F/u repeat CXR Troponinemia -0.79 -> 1.12 -> 0.79. Likely secondary to demand ischemia. -EKG shows sinus rhythm at 89 BPM, nonspecfic T wave abnormality. No ischemic changes noted. -Heparin drip initiated for 48 hours. -F/U cardiac ECHO -Cardiology consult (Dr. Jay) appreciated. Diabetes mellitus -Insulin sliding scale ACHS -Fingerstick blood glucose ACHS Hypertension -Currently holding home antihypertensives. -Follow vital signs FEN -No IV fluids -Follow CMP+ -NPO. Prophylaxis -Patient is on heparin drip -Protonix 40mg IV daily Disposition -Continue care in ICU. Visit type - Emergency Visit Emergency Visit: Yes ED Registration Date: 03/28/18 Care time: The patient presented to the Emergency Department on the above date and was hospitalized for further evaluation of their emergent condition. - New Patient This patient is new to me today: No - Critical Care Critical Care patient: Yes Total Critical Care Time (in minutes): 35 Critical Care Statement: The care of this patient involved high complexity decision making to prevent further life threatening deterioration of the patient 's condition and/or to evaluate & treat vital organ system(s) failure or risk of failure. - Discharge Referral Referred to [facility] Med [facility] No
[2018-03-29] MEDS: FUROSEMIDE 40 MG/4 ML INJECTABLE VIAL IVPUSH SCH ×2 (12:19→22:04)
--- NOTE | 2018-03-29 12:24 | PN ---
Teaching Attending Note Name of Resident: Jamari Gabriel ATTENDING PHYSICIAN STATEMENT I saw and evaluated the patient. I reviewed the resident's note and discussed the case with the resident. I agree with the resident's findings and plan as documented. SUBJECTIVE: Pt seen and examined in the ICU. Remains intubated, sedated. Vented on volume assist control with 60% FiO2, PEEP 5. OBJECTIVE: Vital Signs Period Temp Pulse Resp BP Sys/Garner Pulse Ox Last 24 Hr 98.2 F-100 F 78-98 14-24 106-134/60-86 99-99 Intake & Output 03/26/18 03/27/18 03/28/18 03/29/18 23:59 23:59 23:59 23:59 Intake Total 786 681 Output Total 3600 1000 Balance -2814 -319 Weight 136.078 kg 138.941 kg 137.495 kg Gen: intubated, sedated Heart: RRR Lung: scattered rhonchi Abd: soft, nontender Ext: + edema CBC, BMP 03/29/18 05:15 03/29/18 05:15 Active Medications Albuterol Sulfate (Ventolin 0.083% Nebulizer Soln -) 1 amp NEB Q4H PRN PRN Reason: SHORT OF BREATH/WHEEZING Albuterol/Ipratropium (Duoneb -) 1 amp NEB RQID [facility] Last Admin: 03/29/18 11:25 Dose: 1 amp Chlorhexidine Gluconate (Hibiclens For Decolonization -) 1 applic TP HS [facility] Last Admin: 03/28/18 22:56 Dose: 1 applic Furosemide (Lasix Injection -) 80 mg IVPUSH BID [facility] Last Admin: 03/29/18 12:19 Dose: 80 mg Heparin Sodium (Porcine) (Heparin -) 1,000 unit IVPUSH PRN PRN PRN Reason: Heparin Heparin Sodium (Porcine) (Heparin -) 5,000 unit IVPUSH PRN PRN PRN Reason: Heparin Last Admin: 03/28/18 19:00 Dose: 5,000 unit Fentanyl 500 mcg/ Dextrose 100 mls @ 10 mls/hr IVPB TITR [facility] Last Admin: 03/29/18 02:35 Dose: 50 mcg/hr, 10 mls/hr Heparin Sodium/Dextrose (Heparin Infusion -) 25,000 units in 500 mls @ 20 mls/ hr IVPB TITR [facility]; Protocol Last Admin: 03/29/18 09:53 Dose: 1,150 unit/hr, 23 mls/hr Ceftriaxone Sodium 2 gm/ (Dextrose) 100 mls @ 100 mls/hr IVPB DAILY [facility]; Protocol Last Admin: 03/29/18 09:54 Dose: 100 mls/hr Propofol (Diprivan -) 1,000,000 mcg in 100 mls @ 8.336 mls/hr IVPB TITR [facility]; Protocol Last Admin: 03/29/18 09:56 Dose: 40 mcg/kg/min, 33.346 mls/hr Azithromycin (Zithromax 500mg Ivpb (Pre-Docked)) 500 mg in 250 mls @ 250 mls/ hr IVPB DAILY [facility] Last Admin: 03/29/18 09:55 Dose: 250 mls/hr Potassium Chloride (Potassium Chloride 10 Meq Premix Ivpb -) 10 meq in 100 mls @ 100 mls/hr IVPB Q60M [facility] Stop: 03/29/18 14:44 Insulin Aspart (Novolog Vial Sliding Scale -) 1 vial SQ ACHS [facility]; Protocol Last Admin: 03/29/18 12:17 Dose: 6 units Methylprednisolone Sodium Succinate (Solu-Medrol -) 40 mg IVPUSH DAILY [facility] Mupirocin (Bactroban Ointment (For Decolonization) -) 1 applic NS BID [facility] Stop: 04/02/18 09:59 Last Admin: 03/29/18 09:53 Dose: 1 applic Pantoprazole Sodium (Protonix Iv) 40 mg IVPUSH DAILY [facility] Last Admin: 03/29/18 09:53 Dose: 40 mg ASSESSMENT AND PLAN: Acute on likely Chronic Hypoxic and Hypercapneic Respiratory Failure Decompensated Heart Failure +Troponins/Acute NSTEMI COPD Morbid Obesity LEONIDES/OHS HTN DM Hyperlipidemia UTI - continue lasix - monitor urine output, creatinine - daily weights - keep net negative - echocardiogram - continue antibiotics - f/u cultures - taper FiO2, PEEP to keep SpO2 >90% - taper off medrol - inhaled bronchodilators - hold sedation in AM to assess mental status - spontaneous breathing trials as tolerated when mental status improved - enteral feeds if unable to extubate - DVT/GI prophylaxis - continue ICU monitoring critical care time spent in reviewing chart, evaluating patient and formulating plan 35 min
[2018-03-29] MEDS: KCL 10 MEQ IVPB 10 MEQ/100 ML INFUS.BAG IVPB SCH ×4 (13:29→16:45)
--- NOTE | 2018-03-29 13:37 | PN ---
Physical Exam: SUBJECTIVE: Patient seen and examined at bedside. Intubated and sedated. OBJECTIVE: Vital Signs Period Temp Pulse Resp BP Sys/Garner Pulse Ox Last 24 Hr 98.2 F-100 F 78-98 14-24 106-134/60-86 99-99 GENERAL: Intubated and sedated HEAD: NC/AT EYES: PERRL EARS, NOSE, THROAT: MMM NECK: Supple, +JVD above angle of mandible LUNGS: Profound rales anteriorly, posterior lewis could not be accessed HEART: Tachycardic, limited auscultation d/t body habitus and positioning ABDOMEN: soft, obese, could not appreciate bowel sounds, no pain response to deep palpation EXTREMITIES: Profound pedal edema b/l, venous stasis NEUROLOGICAL: limited exam, alerts to sternal rub SKIN: Warm, dry, normal turgor Laboratory Results - last 24 hr 03/28/18 03/29/18 03/29/18 18:00 00:40 05:15 WBC 12.4 H RBC 4.95 Hgb 13.5 Hct 40.5 MCV 81.7 MCH 27.2 MCHC 33.3 RDW 17.3 H Plt Count 239 MPV 10.0 Absolute Neuts (auto) 11.0 H Neutrophils % 88.7 H Lymphocytes % 3.8 L D Monocytes % 7.2 Eosinophils % 0.0 Basophils % 0.3 Nucleated RBC % 0 PTT (Actin FS) 31.6 53.1 H Puncture Site ABG pH ABG pCO2 at Pt Temp ABG pO2 at Pt Temp ABG HCO3 ABG O2 Sat (Measured) ABG O2 Content ABG Base Excess Dwayne Test O2 Delivery Device Oxygen Flow Rate Vent Mode Vent Rate Mechanical Rate PEEP Pressure Support Vent Sodium Potassium Chloride Carbon Dioxide Anion Gap BUN Creatinine Creat Clearance w eGFR Random Glucose Calcium Phosphorus Magnesium Total Bilirubin AST ALT Alkaline Phosphatase Total Protein Albumin 03/29/18 03/29/18 05:15 05:33 WBC RBC Hgb Hct MCV MCH MCHC RDW Plt Count MPV Absolute Neuts (auto) Neutrophils % Lymphocytes % Monocytes % Eosinophils % Basophils % Nucleated RBC % PTT (Actin FS) Puncture Site Right radial ABG pH 7.53 H ABG pCO2 at Pt Temp 42.3 ABG pO2 at Pt Temp 117.0 H D ABG HCO3 34.8 H ABG O2 Sat (Measured) 98.4 ABG O2 Content 18.7 ABG Base Excess 10.9 H Dwayne Test Positive O2 Delivery Device Vent Oxygen Flow Rate 60% Vent Mode Ac/prvc Vent Rate 24 Mechanical Rate Yes PEEP 5.0 Pressure Support Vent 450 Sodium 137 Potassium 3.9 Chloride 95 L Carbon Dioxide 34 H Anion Gap 8 BUN 32 H Creatinine 0.9 Creat Clearance w eGFR > 60 Random Glucose 249 H Calcium 8.1 L Phosphorus 3.6 Magnesium 1.8 Total Bilirubin 0.8 AST 47 H ALT 48 Alkaline Phosphatase 91 Total Protein 6.9 Albumin 2.3 L Active Medications Generic Name Dose Route Start Last Admin Trade Name Freq PRN Reason Stop Dose Admin Albuterol Sulfate 1 amp 03/28/18 00:54 Ventolin 0.083% Nebulizer Soln - NEB Q4H PRN SHORT OF BREATH/WHEEZING Albuterol/Ipratropium 1 amp 03/28/18 08:00 03/29/18 11:25 Duoneb - NEB 1 amp RQID [facility] Administration Chlorhexidine Gluconate 1 applic 03/28/18 22:00 03/28/18 22:56 Hibiclens For Decolonization - TP 1 applic HS [facility] Administration Furosemide 80 mg 03/29/18 11:15 03/29/18 12:19 Lasix Injection - IVPUSH 80 mg BID [facility] Administration Heparin Sodium (Porcine) 1,000 unit 03/28/18 05:30 Heparin - IVPUSH PRN PRN Heparin Heparin Sodium (Porcine) 5,000 unit 03/28/18 05:30 03/28/18 19:00 Heparin - IVPUSH 5,000 unit PRN PRN Administration Heparin Fentanyl 500 mcg/ Dextrose 100 mls @ 10 mls/hr 03/28/18 01:30 03/29/18 02:35 IVPB 50 mcg/hr TITR [facility] 10 mls/hr Administration 50 MCG/HR Heparin Sodium/Dextrose 25,000 units in 500 mls @ 20 mls/hr 03/28/18 05:30 09:53 Heparin Infusion - IVPB 1,150 unit/hr TITR [facility] 23 mls/hr Administration Protocol 1,000 UNIT/HR Ceftriaxone Sodium 2 gm/ 100 mls @ 100 mls/hr 03/28/18 12:30 03/29/18 09:54 Dextrose IVPB 100 mls/hr DAILY [facility] Administration Protocol Propofol 1,000,000 mcg in 100 mls @ 8.336 mls/hr 03/28/18 14:00 03/29/18 09: 56 Diprivan - IVPB 40 mcg/kg/min TITR [facility] 33.346 mls/hr Administration Protocol 10 MCG/KG/MIN Azithromycin 500 mg in 250 mls @ 250 mls/hr 03/28/18 14:36 03/29/18 09:55 Zithromax 500mg Ivpb (Pre-Docked) IVPB 250 mls/hr DAILY [facility] Administration Potassium Chloride 10 meq in 100 mls @ 100 mls/hr 03/29/18 11:45 Potassium Chloride 10 Meq Premix Ivpb - IVPB 03/29/18 14:44 Q60M [facility] Insulin Aspart 1 vial 03/28/18 22:00 03/29/18 12:17 Novolog Vial Sliding Scale - SQ 6 units ACHS [facility] Administration Protocol Methylprednisolone Sodium Succinate 40 mg 03/30/18 10:00 Solu-Medrol - IVPUSH DAILY [facility] Mupirocin 1 applic 03/28/18 10:00 03/29/18 09:53 Bactroban Ointment (For Decolonization) - NS 04/02/18 09:59 1 applic BID [facility] Administration Pantoprazole Sodium 40 mg 03/28/18 01:29 03/29/18 09:53 Protonix Iv IVPUSH 40 mg DAILY [facility] Administration ASSESSMENT/PLAN: 67 y/o F w/ PMHx CHF, COPD on home O2, LEONIDES on CPAP, IDDM, morbid obesity, HTN, HLD, presents in acute hypercapneic respiratory failure and acute CHF exacerbation 2/2 reported medication non-adherence, superimposed CAP. #pulmonary -intubated, sedated on Propofol/Fentanyl -ABG overshot overnight to pH 7.53, RR and FiO2 reduced -taper solumedrol to 40 daily -bronchodilators standing and PRN -repeat ABG #CV -cardiology following -troponins downtrending -on heparin gtt for 24 hours, to be completed after 48 hours ~7am tomorrow as per cardiology -Lasix 80 BID -strict Is & Os -daily weights -koenig in place -repeat CXR -echo ordered -maintain Mg>2, K>4.5 #ID -treating for CAP -additionally urine Cx growing lac-fermenting Gnb -cont ceftriaxone/azithromycin as per ID (day 2) #nephrology -Cr down to 0.9, making urine, no acute issues at this time -trend BMP, follow Cr, replete K and Mg as needed #endocrine -BGM, SSI #FEN -no IVF -monitor and correct electrolytes -will begin tube feeds tomorrow if unable to wean #PPx -DVT: heparin gtt -GI: IV PTX #code -full code at this time, son is decision-maker, need to clarify GOC #Dispo -cont to follow in ICU Visit type - Emergency Visit Emergency Visit: No - New Patient This patient is new to me today: No - Critical Care Critical Care patient: Yes Total Critical Care Time (in minutes): 40 Critical Care Statement: The care of this patient involved high complexity decision making to prevent further life threatening deterioration of the patient 's condition and/or to evaluate & treat vital organ system(s) failure or risk of failure.
--- NOTE | 2018-03-29 13:51 | PN ---
Progress Note, Physician History of Present Illness: 67 year old female with PMHx CHF, COPD on home O2, LEONIDES on CPAP, IDDM, morbid obesity, HTN, HLD, non-compliance with diuretics presented with shortness of breath, increase lower extremity swelling found to have acute respiratory distress requiring intubation for airway protection admitted to ICU for heart failure/COPD exacerbation. Cardiology consulted for further management. Labs remarkable for BNP 10,000s, tropnon 1.1. Currently hemodynamically stable - on ASA, heparin gtt and IV lasix. - Current Medication List Current Medications: Active Medications Albuterol Sulfate (Ventolin 0.083% Nebulizer Soln -) 1 amp NEB Q4H PRN PRN Reason: SHORT OF BREATH/WHEEZING Albuterol/Ipratropium (Duoneb -) 1 amp NEB RQID [facility]PLAC[facility] BY [facility] Last Admin: 03/29/18 11:25 Dose: 1 amp Chlorhexidine Gluconate (Hibiclens For Decolonization -) 1 applic TP HS [facility] Last Admin: 03/28/18 22:56 Dose: 1 applic Furosemide (Lasix Injection -) 80 mg IVPUSH BID [facility] Last Admin: 03/29/18 12:19 Dose: 80 mg Heparin Sodium (Porcine) (Heparin -) 1,000 unit IVPUSH PRN PRN PRN Reason: Heparin Heparin Sodium (Porcine) (Heparin -) 5,000 unit IVPUSH PRN PRN PRN Reason: Heparin Last Admin: 03/28/18 19:00 Dose: 5,000 unit Fentanyl 500 mcg/ Dextrose 100 mls @ 10 mls/hr IVPB TITR [facility] Last Admin: 03/29/18 02:35 Dose: 50 mcg/hr, 10 mls/hr Heparin Sodium/Dextrose (Heparin Infusion -) 25,000 units in 500 mls @ 20 mls/ hr IVPB TITR [facility]; Protocol Last Admin: 03/29/18 09:53 Dose: 1,150 unit/hr, 23 mls/hr Ceftriaxone Sodium 2 gm/ (Dextrose) 100 mls @ 100 mls/hr IVPB DAILY [facility]; Protocol Last Admin: 03/29/18 09:54 Dose: 100 mls/hr Propofol (Diprivan -) 1,000,000 mcg in 100 mls @ 8.336 mls/hr IVPB TITR [facility]; Protocol Last Admin: 03/29/18 09:56 Dose: 40 mcg/kg/min, 33.346 mls/hr Azithromycin (Zithromax 500mg Ivpb (Pre-Docked)) 500 mg in 250 mls @ 250 mls/ hr IVPB DAILY [facility] Last Admin: 03/29/18 09:55 Dose: 250 mls/hr Potassium Chloride (Potassium Chloride 10 Meq Premix Ivpb -) 10 meq in 100 mls @ 100 mls/hr IVPB Q60M [facility]PLACED [facility] Stop: 03/29/18 14:44 Last Admin: 03/29/18 13:29 Dose: 100 mls/hr Insulin Aspart (Novolog Vial Sliding Scale -) 1 vial SQ ACHS [facility]; Protocol Last Admin: 03/29/18 12:17 Dose: 6 units Methylprednisolone Sodium Succinate (Solu-Medrol -) 40 mg IVPUSH DAILY [facility] Mupirocin (Bactroban Ointment (For Decolonization) -) 1 applic NS BID [facility]PL[facility] BY [facility] Stop: 04/02/18 09:59 Last Admin: 03/29/18 09:53 Dose: 1 applic Pantoprazole Sodium (Protonix Iv) 40 mg IVPUSH DAILY [facility] Last Admin: 03/29/18 09:53 Dose: 40 mg - Objective Vital Signs: Vital Signs Temperature 98.2 F 03/29/18 10:00 Pulse Rate 95 H 03/29/18 12:00 Respiratory Rate 22 H 03/29/18 12:00 Blood Pressure 114/62 03/29/18 12:00 O2 Sat by Pulse Oximetry (%) 99 03/29/18 10:00 Eyes: Yes: WNL, Conjunctiva Clear, EOM Intact HENT: Yes: WNL, Atraumatic, Normocephalic Neck: Yes: WNL, Supple, Trachea Midline Cardiovascular: Yes: WNL, Regular Rate and Rhythm Respiratory: Yes: CTA Bilaterally, Intubated, Mechanically Ventilated Gastrointestinal: Yes: WNL, Normal Bowel Sounds Genitourinary: Yes: WNL Musculoskeletal: Yes: WNL Extremities: Yes: WNL Edema: Yes Integumentary: Yes: WNL ...Motor Strength: WNL Psychiatric: Yes: WNL Labs: CBC, BMP 03/29/18 05:15 03/29/18 05:15 Assessment/Plan A/P: 67 year old female with PMHx CHF, COPD on home O2, LEONIDES on CPAP, IDDM, morbid obesity, HTN, HLD, non-compliance with diuretics presented with shortness of breath, increase lower extremity swelling found to have acute respiratory distress requiring intubation for airway protection admitted to ICU for heart failure/COPD exacerbation. #Chronic Heart Failure (no echocardiogram in system) Workup: --BNP 10,000s --troponin 0.7-->1.1 --ECG NSR no acute ischemic changes --CXR enlarged heart with pulmonary vascular congestion --order echocardiogram Treatment: --IV lasix to achieve a goal of net negative 1-2L daily --strict i/os, daily weights, chemistry panel K>4, Mg>2 #NSTEMI Etiology: likely demand ischemia Workup: --continue to trend troponin 0.7-->1.1 --ECG NSR, no acute ischemic changes --echocardiogram --willl eventually need ischemic eval (nuclear stress vs cardiac cath) prior to discharge Treatment: --continue ASA 81mg, heparin gtt for 48 hours --hold off on beta-yahir therapy in setting of ADHF and noncompliance Management of COPD, respiratory failure and infectious workup per ICU Team. CC time 36 min
[2018-03-29] MEDS ORDERED: PROPOFOL 1,000,000 MCG/100 ML VIAL ONE (14:34)
--- NOTE | 2018-03-29 16:13 | PN ---
Teaching Attending Note Name of Resident: Xu Vargas ATTENDING PHYSICIAN STATEMENT I saw and evaluated the patient. I reviewed the resident's note and discussed the case with the resident. I agree with the resident's findings and plan as documented. SUBJECTIVE: Sedated, Intubated OBJECTIVE Afebrile, Intubated/Ventilated 40%/TV 450/RR 14/PEEP 5 Last Vital Signs Temp Pulse Resp BP Pulse Ox 98.7 F 97 H 16 113/61 99 03/29/18 14:00 03/29/18 14:00 03/29/18 14:29 03/29/18 14:00 03/29/18 10:00 HEENT - Intubated. Atraumatic. Heart - S1, S2, RRR Lungs - Good air entry bilaterally with some wheeze. Abdomen - High BMI, Soft. Bowel Sounds normal. Extremities - edema+. Neuro - sedated. NATHANIEL. Laboratory Results - last 24 hr 03/28/18 03/29/18 03/29/18 18:00 00:40 05:15 WBC 12.4 H RBC 4.95 Hgb 13.5 Hct 40.5 MCV 81.7 MCH 27.2 MCHC 33.3 RDW 17.3 H Plt Count 239 MPV 10.0 Absolute Neuts (auto) 11.0 H Neutrophils % 88.7 H Lymphocytes % 3.8 L D Monocytes % 7.2 Eosinophils % 0.0 Basophils % 0.3 Nucleated RBC % 0 PTT (Actin FS) 31.6 53.1 H Puncture Site ABG pH ABG pCO2 at Pt Temp ABG pO2 at Pt Temp ABG HCO3 ABG O2 Sat (Measured) ABG O2 Content ABG Base Excess Dwayne Test O2 Delivery Device Oxygen Flow Rate Vent Mode Vent Rate Mechanical Rate PEEP Pressure Support Vent Sodium Potassium Chloride Carbon Dioxide Anion Gap BUN Creatinine Creat Clearance w eGFR Random Glucose Calcium Phosphorus Magnesium Total Bilirubin AST ALT Alkaline Phosphatase Total Protein Albumin 03/29/18 03/29/18 05:15 05:33 WBC RBC Hgb Hct MCV MCH MCHC RDW Plt Count MPV Absolute Neuts (auto) Neutrophils % Lymphocytes % Monocytes % Eosinophils % Basophils % Nucleated RBC % PTT (Actin FS) Puncture Site Right radial ABG pH 7.53 H ABG pCO2 at Pt Temp 42.3 ABG pO2 at Pt Temp 117.0 H D ABG HCO3 34.8 H ABG O2 Sat (Measured) 98.4 ABG O2 Content 18.7 ABG Base Excess 10.9 H Dwayne Test Positive O2 Delivery Device Vent Oxygen Flow Rate 60% Vent Mode Ac/prvc Vent Rate 24 Mechanical Rate Yes PEEP 5.0 Pressure Support Vent 450 Sodium 137 Potassium 3.9 Chloride 95 L Carbon Dioxide 34 H Anion Gap 8 BUN 32 H Creatinine 0.9 Creat Clearance w eGFR > 60 Random Glucose 249 H Calcium 8.1 L Phosphorus 3.6 Magnesium 1.8 Total Bilirubin 0.8 AST 47 H ALT 48 Alkaline Phosphatase 91 Total Protein 6.9 Albumin 2.3 L Current Medications Generic Name Dose Route Start Last Admin Trade Name Freq PRN Reason Stop Dose Admin Albuterol Sulfate 1 amp 03/28/18 00:54 Ventolin 0.083% Nebulizer Soln - NEB Q4H PRN SHORT OF BREATH/WHEEZING Albuterol/Ipratropium 1 amp 03/28/18 08:00 03/29/18 11:25 Duoneb - NEB 1 amp RQID [facility] Administration Aspirin 81 mg 03/29/18 16:00 Asa - PO DAILY [facility] Chlorhexidine Gluconate 1 applic 03/28/18 22:00 03/28/18 22:56 Hibiclens For Decolonization - TP 1 applic HS [facility] Administration Furosemide 80 mg 03/29/18 11:15 03/29/18 12:19 Lasix Injection - IVPUSH 80 mg BID [facility] Administration Heparin Sodium (Porcine) 1,000 unit 03/28/18 05:30 Heparin - IVPUSH PRN PRN Heparin Heparin Sodium (Porcine) 5,000 unit 03/28/18 05:30 03/28/18 19:00 Heparin - IVPUSH 5,000 unit PRN PRN Administration Heparin Fentanyl 500 mcg/ Dextrose 100 mls @ 10 mls/hr 03/28/18 01:30 03/29/18 02:35 IVPB 50 mcg/hr TITR [facility] 10 mls/hr Administration 50 MCG/HR Heparin Sodium/Dextrose 25,000 units in 500 mls @ 20 mls/hr 03/28/18 05:30 09:53 Heparin Infusion - IVPB 1,150 unit/hr TITR [facility] 23 mls/hr Administration Protocol 1,000 UNIT/HR Ceftriaxone Sodium 2 gm/ 100 mls @ 100 mls/hr 03/28/18 12:30 03/29/18 09:54 Dextrose IVPB 100 mls/hr DAILY [facility] Administration Protocol Propofol 1,000,000 mcg in 100 mls @ 8.336 mls/hr 03/28/18 14:00 03/29/18 15: 35 Diprivan - IVPB 40 mcg/kg/min TITR [facility] 33.346 mls/hr Administration Protocol 10 MCG/KG/MIN Azithromycin 500 mg in 250 mls @ 250 mls/hr 03/28/18 14:36 03/29/18 09:55 Zithromax 500mg Ivpb (Pre-Docked) IVPB 250 mls/hr DAILY [facility] Administration Insulin Aspart 1 vial 03/28/18 22:00 03/29/18 12:17 Novolog Vial Sliding Scale - SQ 6 units ACHS [facility] Administration Protocol Methylprednisolone Sodium Succinate 40 mg 03/30/18 10:00 Solu-Medrol - IVPUSH DAILY [facility] Mupirocin 1 applic 03/28/18 10:00 03/29/18 09:53 Bactroban Ointment (For Decolonization) - NS 04/02/18 09:59 1 applic BID [facility] Administration Pantoprazole Sodium 40 mg 03/28/18 01:29 03/29/18 09:53 Protonix Iv IVPUSH 40 mg DAILY [facility] Administration ASSESSMENT/PLAN: 67 year old female with High BMI, COPD, LEONIDES (poorly compliant with home BiPAP), DM 2, HTN, HLD, presented to ED with complaints of 2 week history of worsening SOB. In the ED, she had respiratory failure and decreased mentation prompting intubation and mechanical ventilation after failing BiPAP trial. Her son reported poor compliance with Lasix for several months. 1. Acute hypoxic hypercapnic respiratory failure secondary to: A. CHF (unknown diastolic versus sytolic) BNP 10,603 Echo report pending CXR - congestion, improved after initiation of lasix diuresis. Intubated and Sedated. Cardiology consulted and following Continue Lasix diuresis - 80mg IVP bid. Daily I/Os, weight, electrolyte monitoring. B. Acute exacerbation COPD Martir has underlying LEONIDES with OHS pCO2 86.7 on admission with respiratory acidosis. Continue Ventilator support, Bronchodilator Nebs, Solumedrol and empiric Abx therapy with Ceftriaxone and Azithromycin. Flu negative/RSV positive Blood cx negative Legionella/Strep Ag neg For weaning trial tomorrow am 2. NSTEMI likely sec to demand ischemia. TnI max 1.12 ECG - SR rate 89, non-specific T wave abnormality. Evaluated by Cardio - started on Aspirin and placed on heparin drip for 48 hours , with NM stress vs Cardiac Cath prior to discharge. 3. DM 2 - insulin sliding scale. 4. HTN - anti-hypertensives currently held. 5. UTI UCx pos for lactose fermenting gram neg bacilli On ceftriaxone Will follow final ID and sensitivity. DVT Px - Heparin drip GI Px - Protonix
[2018-03-29] MEDS: ASPIRIN 81 MG CHEWABLE TABLETS PO SCH (16:20)
[2018-03-29] MEDS ORDERED: PROPOFOL 2,000,000 MCG/200 ML VIAL ONE (20:03)
[2018-03-29] MEDS: CHLORHEXIDINE GLUCONATE 4% CLEANSER FOR DECOLONIZATION TP SCH (22:01)
[2018-03-30] MEDS: PROPOFOL 1,000,000 MCG/100 ML VIAL IVPB SCH ×2 (01:10→06:43)
[2018-03-30] MEDS: FENTANYL INJECTION 500 MCG in DEXTROSE 5%-WATER - 90 ML IVPB SCH (02:38)
[2018-03-30] MEDS: HEPARIN INFUSION - 25,000 UNITS/500 ML INFUS.BAG IVPB SCH (05:53)
[2018-03-30] MEDS: INSULIN SLIDING SCALE (NOVOLOG) 1 VIAL SQ SCH ×4 (06:06→21:57)
[2018-03-30 06:34] LABS: BASO % 0.7 % (0-2.0); EOS % 0.4 % (0-4.5); HEMATOCRIT 40.5 % (32.4-45.2); HEMOGLOBIN 12.5 GM/dL (10.7-15.3); LYMPH % 8.2 % (8-40); MCH 25.6 pg (25.7-33.7); MEAN CELL VOLUME 82.7 fl (80-96); MEAN PLT VOLUME 9.8 fl (7.5-11.1); MONO % 11.2 % (3.8-10.2); NEUT % 79.5 % (42.8-82.8); PLATELET COUNT 217 K/MM3 (134-434); RBC 4.89 M/mm3 (3.60-5.2); RDW 17.7 % (11.6-15.6); WHITE BLOOD COUNT 11.1 K/mm3 (4.0-10.0)
[2018-03-30 06:43] LABS: ARTERIAL BLD GAS O2 SATURATION 96.3 % (90-98.9); ARTERIAL BLOOD GAS PCO2 64.2 mmHg (35-45); ARTERIAL BLOOD GAS PO2 89.9 mmHg (80-100)
[2018-03-30 06:54] LABS: ALLENS TEST POSITIVE
[2018-03-30 07:25] LABS: ANION GAP 5 MMOL/L (8-16); BLOOD UREA NITROGEN 27 mg/dL (7-18); CALCIUM 8.1 mg/dL (8.5-10.1); CHLORIDE 95 mmol/L (98-107); CO2 39 mmol/L (21-32); CREATININE 0.6 mg/dL (0.55-1.3); GLUCOSE,RANDOM 140 mg/dL (74-106); MAGNESIUM 1.7 mg/dL (1.8-2.4); POTASSIUM 3.7 mmol/L (3.5-5.1); SODIUM 139 mmol/L (136-145)
[2018-03-30] MEDS ORDERED: MAGNESIUM SULF 50% (8.12 MEQ/2 ML-1 GM VIAL) IVPB ONE (07:42)
[2018-03-30] MEDS ORDERED: POTASSIUM CHLORIDE TABS 20 MEQ TABLET.ER (FP) PO ONE (07:47)
[2018-03-30] MEDS: ALBUTEROL SO4 2.5/IPRATROPIUM 0.5 INH SOL 3 ML VIAL.NEB. NEB SCH ×4 (07:50→21:00)
[2018-03-30] MEDS ORDERED: PT OWN MED DRAWER 7, Y5N ONE (08:35)
[2018-03-30] MEDS ORDERED: DEXTROSE 5%-WATER 100 ML IVPB ONE (08:36)
[2018-03-30] MEDS: KCL 10 MEQ IVPB 10 MEQ/100 ML INFUS.BAG IVPB SCH ×3 (08:41→13:00)
[2018-03-30] MEDS ORDERED: POTASSIUM CHLORIDE ORAL LIQUID 20 MEQ/15 ML PO ONE (08:48)
--- NOTE | 2018-03-30 08:55 | PN ---
Physical Exam: SUBJECTIVE: Patient seen and examined at bedside in ICU. Patient successfully weaned off sedation and extubated. She is saturating well on venturi- mask, without shortness of breath. OBJECTIVE: Vital Signs Period Temp Pulse Resp BP Sys/Garner Pulse Ox Last 24 Hr 98.2 F-99.3 F 70-98 14-22 99-121/47-85 95-99 GENERAL: Awake, alert. No acute distress. HEAD: Normocephalic, atraumatic EYES: Pupils equal, round and reactive to light. Extraocular movements intact B/ L. No conjunctival injection B/L. NECK: Supple without lymphadenopathy LUNGS: Good inspiratory effort, poor air entery B/L. course rhonchi, and expiratory wheezes auscultated B/L. HEART: Regular rate and rhythm, + S1 and S2 auscultated. ABDOMEN: Obese. Soft. normoactive bowel sounds, no guarding, no rebound, no masses. No hepatomegaly or splenomegaly. EXTREMITIES: 2+ radial pulses b/l, 1+ dorsalis pedis pulses b/l. chronic venous stasis changes b/l lower extremities. 1+ pitting edema b/l. NEUROLOGICAL: Good muscle tone B/L upper and lower extremities. Moving all 4 extremities spontaneously. No gross focal deficits. Laboratory Results - last 24 hr 03/30/18 03/30/18 03/30/18 05:15 05:15 05:15 WBC 11.1 H RBC 4.89 Hgb 12.5 Hct 40.5 MCV 82.7 MCH 25.6 L MCHC 31.0 L RDW 17.7 H Plt Count 217 MPV 9.8 Absolute Neuts (auto) 8.8 H Neutrophils % 79.5 Lymphocytes % 8.2 D Monocytes % 11.2 H Eosinophils % 0.4 D Basophils % 0.7 Nucleated RBC % 0 PTT (Actin FS) 35.9 Puncture Site ABG pH ABG pCO2 at Pt Temp ABG pO2 at Pt Temp ABG HCO3 ABG O2 Sat (Measured) ABG O2 Content ABG Base Excess Dwayne Test O2 Delivery Device Oxygen Flow Rate PEEP Sodium 139 Potassium 3.7 Chloride 95 L Carbon Dioxide 39 H Anion Gap 5 L BUN 27 H Creatinine 0.6 Creat Clearance w eGFR > 60 Random Glucose 140 H Calcium 8.1 L Phosphorus 5.0 H Magnesium 1.7 L 03/30/18 06:00 WBC RBC Hgb Hct MCV MCH MCHC RDW Plt Count MPV Absolute Neuts (auto) Neutrophils % Lymphocytes % Monocytes % Eosinophils % Basophils % Nucleated RBC % PTT (Actin FS) Puncture Site Right radial ABG pH 7.40 ABG pCO2 at Pt Temp 64.2 H* D ABG pO2 at Pt Temp 89.9 D ABG HCO3 38.6 H ABG O2 Sat (Measured) 96.3 ABG O2 Content 20.1 ABG Base Excess 11.0 H Dwayne Test Positive O2 Delivery Device Vent Oxygen Flow Rate 40 PEEP 5.0 Sodium Potassium Chloride Carbon Dioxide Anion Gap BUN Creatinine Creat Clearance w eGFR Random Glucose Calcium Phosphorus Magnesium Active Medications Generic Name Dose Route Start Last Admin Trade Name Freq PRN Reason Stop Dose Admin Albuterol Sulfate 1 amp 03/28/18 00:54 Ventolin 0.083% Nebulizer Soln - NEB Q4H PRN SHORT OF BREATH/WHEEZING Albuterol/Ipratropium 1 amp 03/28/18 08:00 03/30/18 07:50 Duoneb - NEB 1 amp RQID DONTA Administration Aspirin 81 mg 03/29/18 16:00 03/29/18 16:20 Asa - PO 81 mg DAILY DONTA Administration Chlorhexidine Gluconate 1 applic 03/28/18 22:00 03/29/18 22:01 Hibiclens For Decolonization - TP 1 applic HS DONTA Administration Enoxaparin Sodium 40 mg 03/30/18 10:00 Lovenox - SQ DAILY DONTA Furosemide 80 mg 03/29/18 11:15 03/29/18 22:04 Lasix Injection - IVPUSH 80 mg BID DONTA Administration Fentanyl 500 mcg/ Dextrose 100 mls @ 10 mls/hr 03/28/18 01:30 03/30/18 02:38 IVPB Not Given TITR DONTA 50 MCG/HR Ceftriaxone Sodium 2 gm/ 100 mls @ 100 mls/hr 03/28/18 12:30 03/29/18 09:54 Dextrose IVPB 100 mls/hr DAILY DONTA Administration Protocol Propofol 1,000,000 mcg in 100 mls @ 8.336 mls/hr 03/28/18 14:00 03/30/18 06: 43 Diprivan - IVPB 40 mcg/kg/min TITR DONTA 33.346 mls/hr Administration Protocol 10 MCG/KG/MIN Azithromycin 500 mg in 250 mls @ 250 mls/hr 03/28/18 14:36 03/29/18 09:55 Zithromax 500mg Ivpb (Pre-Docked) IVPB 250 mls/hr DAILY DONTA Administration Potassium Chloride 10 meq in 100 mls @ 100 mls/hr 03/30/18 08:00 03/30/18 08: 41 Potassium Chloride 10 Meq Premix Ivpb - IVPB 03/30/18 10:59 100 mls/hr Q60M DONTA Administration Insulin Aspart 1 vial 03/28/18 22:00 03/30/18 06:06 Novolog Vial Sliding Scale - SQ 2 units ACHS DONTA Administration Protocol Methylprednisolone Sodium Succinate 40 mg 03/30/18 10:00 Solu-Medrol - IVPUSH DAILY DONTA Mupirocin 1 applic 03/28/18 10:00 03/29/18 22:01 Bactroban Ointment (For Decolonization) - NS 04/02/18 09:59 1 applic BID DONTA Administration Pantoprazole Sodium 40 mg 03/28/18 01:29 03/29/18 09:53 Protonix Iv IVPUSH 40 mg DAILY DONTA Administration Potassium Chloride 40 meq 03/30/18 08:48 Potassium Chloride Oral Liquid PO 03/30/18 08:49 ONCE ONE ASSESSMENT/PLAN: Patient is a 67 year old female with history of morbid obesity, COPD, LEONIDES ( poorly compliant with home CPAP), diabetes mellitus, hypertension, hyperlipidemia, presents with complaint of shortness of breath worsening over the past two weeks. Acute hypoxic hypercapnic respiratory failure -Likely due to CHF exacerbation secondary to poor home medication compliance vs community acquired pneumonia -Patient successfully extubated today in ICU -Duonebs QID, Albuterol nebulizer Q4H PRN -Lasix 80mg IV BID -Solu-Medrol 40mg IV daily -Symbicort 160/ 4.5 2 puffs BID -Ceftriaxone 2grams IV daily (day 3) -Azithromycin 500 mg IV daily (day 3) -Urine negative for legionella antigens -RSV positive, influenza swab negative. -Blood cultures preliminary negative at 48 hours -ID consult (Dr. Ayala) appreciated. -Pulmonology consult (Dr. Paige, Dr. Sanches) appreciated. -F/u repeat CXR Troponinemia -0.79 -> 1.12 -> 0.79. Likely secondary to demand ischemia. -EKG shows sinus rhythm at 89 BPM, nonspecfic T wave abnormality. No ischemic changes noted. -Heparin drip discontinued after 48 hours. -Cardiac ECHO shows LV normal in size EF 60-65%. Mild impaired LV relaxation. -Cardiology consult (Dr. Jay) appreciated. UTI -Urine culture grows E. coli -Patient is already receiving ceftriaxone 2 grams IV daily. -Follow culture sensitivities Diabetes mellitus -Insulin sliding scale ACHS -Fingerstick blood glucose ACHS Hypertension -Currently holding home antihypertensives. -Follow vital signs FEN -No IV fluids -Follow CMP -Soft diabetic, sodium restricted diet Prophylaxis -Lovenox 40mg subq daily -Protonix 40mg IV daily Disposition -Continue care in ICU. Visit type - Emergency Visit Emergency Visit: Yes ED Registration Date: 03/28/18 Care time: The patient presented to the Emergency Department on the above date and was hospitalized for further evaluation of their emergent condition. - New Patient This patient is new to me today: No - Critical Care Critical Care patient: Yes Total Critical Care Time (in minutes): 35 Critical Care Statement: The care of this patient involved high complexity decision making to prevent further life threatening deterioration of the patient 's condition and/or to evaluate & treat vital organ system(s) failure or risk of failure. - Discharge Referral Referred to [facility] No
[2018-03-30] MEDS: CEFTRIAXONE 2 GM in DEXTROSE 5%-WATER 100 ML IVPB SCH (09:20)
[2018-03-30] MEDS: PANTOPRAZOLE SODIUM 40 MG VIAL IVPUSH SCH (09:27)
--- NOTE | 2018-03-30 09:29 | PN ---
Progress Note, Physician History of Present Illness: Sedated on ventilator Low grade temp 100 Afebrile Minimal tracheal secretions being suctioned WBC improved 11.1 - Current Medication List Current Medications: Active Medications Albuterol Sulfate (Ventolin 0.083% Nebulizer Soln -) 1 amp NEB Q4H PRN PRN Reason: SHORT OF BREATH/WHEEZING Albuterol/Ipratropium (Duoneb -) 1 amp NEB RQID [facility] Last Admin: 03/30/18 07:50 Dose: 1 amp Aspirin (Asa -) 81 mg PO DAILY [facility] Last Admin: 03/29/18 16:20 Dose: 81 mg Chlorhexidine Gluconate (Hibiclens For Decolonization -) 1 applic TP HS [facility] Last Admin: 03/29/18 22:01 Dose: 1 applic Enoxaparin Sodium (Lovenox -) 40 mg SQ DAILY [facility] Furosemide (Lasix Injection -) 80 mg IVPUSH BID [facility] Last Admin: 03/29/18 22:04 Dose: 80 mg Fentanyl 500 mcg/ Dextrose 100 mls @ 10 mls/hr IVPB TITR [facility] Last Admin: 03/30/18 02:38 Dose: Not Given Ceftriaxone Sodium 2 gm/ (Dextrose) 100 mls @ 100 mls/hr IVPB DAILY [facility]; Protocol Last Admin: 03/29/18 09:54 Dose: 100 mls/hr Propofol (Diprivan -) 1,000,000 mcg in 100 mls @ 8.336 mls/hr IVPB TITR [facility]; Protocol Last Admin: 03/30/18 06:43 Dose: 40 mcg/kg/min, 33.346 mls/hr Azithromycin (Zithromax 500mg Ivpb (Pre-Docked)) 500 mg in 250 mls @ 250 mls/ hr IVPB DAILY [facility] Last Admin: 03/29/18 09:55 Dose: 250 mls/hr Potassium Chloride (Potassium Chloride 10 Meq Premix Ivpb -) 10 meq in 100 mls @ 100 mls/hr IVPB Q60M [facility] Stop: 03/30/18 10:59 Last Admin: 03/30/18 08:41 Dose: 100 mls/hr Insulin Aspart (Novolog Vial Sliding Scale -) 1 vial SQ ACHS [facility]; Protocol Last Admin: 03/30/18 06:06 Dose: 2 units Methylprednisolone Sodium Succinate (Solu-Medrol -) 40 mg IVPUSH DAILY [facility] Mupirocin (Bactroban Ointment (For Decolonization) -) 1 applic NS BID [facility] Stop: 04/02/18 09:59 Last Admin: 03/29/18 22:01 Dose: 1 applic Pantoprazole Sodium (Protonix Iv) 40 mg IVPUSH DAILY [facility] Last Admin: 03/29/18 09:53 Dose: 40 mg - Objective Vital Signs: Vital Signs Temperature 98.8 F 03/30/18 06:00 Pulse Rate 70 03/30/18 08:29 Respiratory Rate 14 03/30/18 08:29 Blood Pressure 104/67 03/30/18 08:00 O2 Sat by Pulse Oximetry (%) 95 03/30/18 08:29 Constitutional: Yes: No Distress, Obese Cardiovascular: Yes: Regular Rate and Rhythm, S1, S2 Respiratory: Yes: Mechanically Ventilated Gastrointestinal: Yes: Normal Bowel Sounds, Soft, Abdomen, Obese. No: Tenderness Extremities: Yes: Other (chronic venous stasis dermatitis LE bilaterally) Edema: Yes Labs: CBC, BMP 03/30/18 05:15 03/30/18 05:15 Assessment/Plan Acute respiratory failure Decompensated CHF Acute exacerbation COPD R/O community acquired v. atypical pneumonia +RSV NSTEMI Toxic metabolic encephalopathy Elevated LFTs improved ? Cellulitis L LE Leukocytosis improved Continue ventilatory support Empiric ceftriaxone/ zithromax Steroids/ bronchodilators RSV precautions HIV testing when able to give consent
[2018-03-30] MEDS: FUROSEMIDE 40 MG/4 ML INJECTABLE VIAL IVPUSH SCH ×2 (09:32→21:40)
[2018-03-30] MEDS: ENOXAPARIN NA (PORCINE) 40 MG/0.4 ML DISP.SYRIN SQ SCH (09:32)
[2018-03-30] MEDS: AZITHROMYCIN IVPB 500 MG/250 ML BAG IVPB SCH (09:38)
[2018-03-30] MEDS: ASPIRIN 81 MG CHEWABLE TABLETS PO SCH (09:39)
[2018-03-30] MEDS: MUPIROCIN 2% TOPICAL OINTMENT FOR DECOLONIZATION NS SCH ×2 (09:41→21:40)
[2018-03-30] MEDS ORDERED: methylPREDNISolone NA SUCC 40 MG/1 ML VIAL IVPUSH SCH (10:00)
--- NOTE | 2018-03-30 11:43 | PN ---
Teaching Attending Note Name of Resident: Jamari Gabriel ATTENDING PHYSICIAN STATEMENT I saw and evaluated the patient. I reviewed the resident's note and discussed the case with the resident. I agree with the resident's findings and plan as documented. SUBJECTIVE: Pt seen and examined in the ICU. Intubated, awake off sedation. Tolerated CPAP/ PS and subsequently extubated during rounds this AM. OBJECTIVE: Vital Signs Period Temp Pulse Resp BP Sys/Garner Pulse Ox Last 24 Hr 97.8 F-99.3 F 70-98 14-22 99-131/47-85 95-99 Intake & Output 03/27/18 03/28/18 03/29/18 03/30/18 23:59 23:59 23:59 23:59 Intake Total 328 398 6119.5 Output Total 3600 3700 800 Balance -2814 -3019 637.5 Weight 136.078 kg 138.941 kg 138.799 kg 137.098 kg Gen: extubated Heart: RRR Lung: decreased breath sounds at the bases Abd: soft, obese, nontender Ext: decreasing edema CBC, BMP 03/30/18 05:15 03/30/18 05:15 Active Medications Albuterol Sulfate (Ventolin 0.083% Nebulizer Soln -) 1 amp NEB Q4H PRN PRN Reason: SHORT OF BREATH/WHEEZING Albuterol/Ipratropium (Duoneb -) 1 amp NEB RQID [facility] Last Admin: 03/30/18 07:50 Dose: 1 amp Aspirin (Asa -) 81 mg PO DAILY [facility] Last Admin: 03/30/18 09:39 Dose: 81 mg Chlorhexidine Gluconate (Hibiclens For Decolonization -) 1 applic TP HS [facility] Last Admin: 03/29/18 22:01 Dose: 1 applic Enoxaparin Sodium (Lovenox -) 40 mg SQ DAILY [facility] Last Admin: 03/30/18 09:32 Dose: 40 mg Furosemide (Lasix Injection -) 80 mg IVPUSH BID [facility] Last Admin: 03/30/18 09:32 Dose: 80 mg Fentanyl 500 mcg/ Dextrose 100 mls @ 10 mls/hr IVPB TITR [facility] Last Titration: 03/30/18 09:00 Dose: 25 mcg/hr, 5 mls/hr Ceftriaxone Sodium 2 gm/ (Dextrose) 100 mls @ 100 mls/hr IVPB DAILY [facility]; Protocol Last Admin: 03/30/18 09:20 Dose: 100 mls/hr Propofol (Diprivan -) 1,000,000 mcg in 100 mls @ 8.336 mls/hr IVPB TITR [facility]; Protocol Last Titration: 03/30/18 09:00 Dose: 20 mcg/kg/min, 16.673 mls/hr Azithromycin (Zithromax 500mg Ivpb (Pre-Docked)) 500 mg in 250 mls @ 250 mls/ hr IVPB DAILY [facility] Last Admin: 03/30/18 09:38 Dose: 250 mls/hr Insulin Aspart (Novolog Vial Sliding Scale -) 1 vial SQ ACHS [facility]; Protocol Last Admin: 03/30/18 06:06 Dose: 2 units Methylprednisolone Sodium Succinate (Solu-Medrol -) 40 mg IVPUSH DAILY [facility] Last Admin: 03/30/18 09:27 Dose: 40 mg Mupirocin (Bactroban Ointment (For Decolonization) -) 1 applic NS BID [facility] Stop: 04/02/18 09:59 Last Admin: 03/30/18 09:41 Dose: 1 applic Pantoprazole Sodium (Protonix Iv) 40 mg IVPUSH DAILY [facility] Last Admin: 03/30/18 09:27 Dose: 40 mg ASSESSMENT AND PLAN: Acute on likely Chronic Hypoxic and Hypercapneic Respiratory Failure Acute on Chronic Diastolic Heart Failure +Troponins/Acute NSTEMI COPD Morbid Obesity LEONIDES/OHS HTN DM Hyperlipidemia UTI - continue lasix - monitor urine output, creatinine - daily weights - keep net negative - continue antibiotics for UTI - taper FiO2, PEEP to keep SpO2 >90% - can d/c medrol - inhaled bronchodilators - PO as tolerated - DVT/GI prophylaxis - continue ICU monitoring critical care time spent in reviewing chart, evaluating patient and formulating plan 35 min
--- NOTE | 2018-03-30 12:08 | PN ---
Physical Exam: SUBJECTIVE: Patient seen and examined at bedside. No events overnight. Overcoming sedation at high rate. Initiated sedation wean at bedside. OBJECTIVE: Vital Signs Period Temp Pulse Resp BP Sys/Garner Pulse Ox Last 24 Hr 97.8 F-99.3 F 70-98 14-22 99-131/47-85 95-99 GENERAL: Intubated, on sedation, however alerts to sternal rub HEAD: NC/AT EYES: PERRL EARS, NOSE, THROAT: MMM NECK: Supple, +JVD to angle of mandible LUNGS: Reduced adventitious sounds HEART: borderline tachycardic, limited auscultation d/t body habitus and positioning ABDOMEN: soft, obese, +bs, no pain response to deep palpation EXTREMITIES: Pedal edema b/l improving, venous stasis NEUROLOGICAL: limited exam, alerts to sternal rub SKIN: Warm, dry, normal turgor Laboratory Results - last 24 hr 03/30/18 03/30/18 03/30/18 05:15 05:15 05:15 WBC 11.1 H RBC 4.89 Hgb 12.5 Hct 40.5 MCV 82.7 MCH 25.6 L MCHC 31.0 L RDW 17.7 H Plt Count 217 MPV 9.8 Absolute Neuts (auto) 8.8 H Neutrophils % 79.5 Lymphocytes % 8.2 D Monocytes % 11.2 H Eosinophils % 0.4 D Basophils % 0.7 Nucleated RBC % 0 PTT (Actin FS) 35.9 Puncture Site ABG pH ABG pCO2 at Pt Temp ABG pO2 at Pt Temp ABG HCO3 ABG O2 Sat (Measured) ABG O2 Content ABG Base Excess Dwayne Test O2 Delivery Device Oxygen Flow Rate PEEP Sodium 139 Potassium 3.7 Chloride 95 L Carbon Dioxide 39 H Anion Gap 5 L BUN 27 H Creatinine 0.6 Creat Clearance w eGFR > 60 Random Glucose 140 H Calcium 8.1 L Phosphorus 5.0 H Magnesium 1.7 L 03/30/18 06:00 WBC RBC Hgb Hct MCV MCH MCHC RDW Plt Count MPV Absolute Neuts (auto) Neutrophils % Lymphocytes % Monocytes % Eosinophils % Basophils % Nucleated RBC % PTT (Actin FS) Puncture Site Right radial ABG pH 7.40 ABG pCO2 at Pt Temp 64.2 H* D ABG pO2 at Pt Temp 89.9 D ABG HCO3 38.6 H ABG O2 Sat (Measured) 96.3 ABG O2 Content 20.1 ABG Base Excess 11.0 H Dwayne Test Positive O2 Delivery Device Vent Oxygen Flow Rate 40 PEEP 5.0 Sodium Potassium Chloride Carbon Dioxide Anion Gap BUN Creatinine Creat Clearance w eGFR Random Glucose Calcium Phosphorus Magnesium Active Medications Generic Name Dose Route Start Last Admin Trade Name Freq PRN Reason Stop Dose Admin Albuterol Sulfate 1 amp 03/28/18 00:54 Ventolin 0.083% Nebulizer Soln - NEB Q4H PRN SHORT OF BREATH/WHEEZING Albuterol/Ipratropium 1 amp 03/28/18 08:00 03/30/18 07:50 Duoneb - NEB 1 amp RQID DONTA Administration Aspirin 81 mg 03/29/18 16:00 03/30/18 09:39 Asa - PO 81 mg DAILY DONTA Administration Chlorhexidine Gluconate 1 applic 03/28/18 22:00 03/29/18 22:01 Hibiclens For Decolonization - TP 1 applic HS DONTA Administration Enoxaparin Sodium 40 mg 03/30/18 10:00 03/30/18 09:32 Lovenox - SQ 40 mg DAILY DONTA Administration Furosemide 80 mg 03/29/18 11:15 03/30/18 09:32 Lasix Injection - IVPUSH 80 mg BID DONTA Administration Fentanyl 500 mcg/ Dextrose 100 mls @ 10 mls/hr 03/28/18 01:30 03/30/18 09:00 IVPB 25 mcg/hr TITR DONTA 5 mls/hr Titration 50 MCG/HR Ceftriaxone Sodium 2 gm/ 100 mls @ 100 mls/hr 03/28/18 12:30 03/30/18 09:20 Dextrose IVPB 100 mls/hr DAILY DONTA Administration Protocol Propofol 1,000,000 mcg in 100 mls @ 8.336 mls/hr 03/28/18 14:00 03/30/18 09: 00 Diprivan - IVPB 20 mcg/kg/min TITR DONTA 16.673 mls/hr Titration Protocol 10 MCG/KG/MIN Azithromycin 500 mg in 250 mls @ 250 mls/hr 03/28/18 14:36 03/30/18 09:38 Zithromax 500mg Ivpb (Pre-Docked) IVPB 250 mls/hr DAILY DONTA Administration Insulin Aspart 1 vial 03/28/18 22:00 03/30/18 06:06 Novolog Vial Sliding Scale - SQ 2 units ACHS DONTA Administration Protocol Methylprednisolone Sodium Succinate 40 mg 03/30/18 10:00 03/30/18 09:27 Solu-Medrol - IVPUSH 40 mg DAILY DONTA Administration Mupirocin 1 applic 03/28/18 10:00 03/30/18 09:41 Bactroban Ointment (For Decolonization) - NS 04/02/18 09:59 1 applic BID DONTA Administration Pantoprazole Sodium 40 mg 03/28/18 01:29 03/30/18 09:27 Protonix Iv IVPUSH 40 mg DAILY DONTA Administration ASSESSMENT/PLAN: 67 y/o F w/ PMHx CHF, COPD on home O2, LEONIDES on CPAP, IDDM, morbid obesity, HTN, HLD, presents in acute hypercapneic respiratory failure and acute CHF exacerbation 2/2 reported medication non-adherence, superimposed CAP and UTI. #pulmonary -successfully extubated -40% venti mask -ABG shows resolution of pH, CO2 now at likely baseline -taper solumedrol to 40 daily -bronchodilators standing and PRN -repeat ABG #CV -cardiology following -troponemia resolved -completed heparin gtt, now prophylactic Lovenox -Lasix 80 BID -strict Is & Os -daily weights -koenig in place -minimal improvement on CXR -follow CXR -echo showing no EF reduction, questionable correlation to clinical status -maintain Mg>2, K>4.5 #ID -treating empirically for CAP -additionally urine Cx growing E coli -cont ceftriaxone/azithromycin as per ID (day 3) #nephrology -Cr down to 0.9, making urine, no acute issues at this time -trend BMP, follow Cr, replete K and Mg as needed #endocrine -BGM, SSI #FEN -no IVF -monitor and correct electrolytes -diabetic/soft low Na diet #PPx -DVT: Lovenox 40 subq -GI: IV PTX #code -full #Dispo -cont to follow in ICU, may consider transfer tomorrow Visit type - Emergency Visit Emergency Visit: No - New Patient This patient is new to me today: No - Critical Care Critical Care patient: Yes Total Critical Care Time (in minutes): 40 Critical Care Statement: The care of this patient involved high complexity decision making to prevent further life threatening deterioration of the patient 's condition and/or to evaluate & treat vital organ system(s) failure or risk of failure.
--- NOTE | 2018-03-30 16:47 | PN ---
Teaching Attending Note Name of Resident: Xu Vargas ATTENDING PHYSICIAN STATEMENT I saw and evaluated the patient. I reviewed the resident's note and discussed the case with the resident. I agree with the resident's findings and plan as documented. SUBJECTIVE: Patient extubated this morning. OBJECTIVE: Vital Signs Period Temp Pulse Resp BP Sys/Garner Pulse Ox Last 24 Hr 97.8 F-99.3 F 70-98 14-26 99-134/47-85 93-99 HEART: S1S2, RRR LUNGS: Few wheezes ABDOMEN: Obese, soft, non-tender, non-distended, normal BS EXTREMITIES: 1+ edema, chronic stasis changes Laboratory Results - last 24 hr 03/30/18 03/30/18 03/30/18 05:15 05:15 05:15 WBC 11.1 H RBC 4.89 Hgb 12.5 Hct 40.5 MCV 82.7 MCH 25.6 L MCHC 31.0 L RDW 17.7 H Plt Count 217 MPV 9.8 Absolute Neuts (auto) 8.8 H Neutrophils % 79.5 Lymphocytes % 8.2 D Monocytes % 11.2 H Eosinophils % 0.4 D Basophils % 0.7 Nucleated RBC % 0 PTT (Actin FS) 35.9 Puncture Site ABG pH ABG pCO2 at Pt Temp ABG pO2 at Pt Temp ABG HCO3 ABG O2 Sat (Measured) ABG O2 Content ABG Base Excess Dwayne Test O2 Delivery Device Oxygen Flow Rate PEEP Sodium 139 Potassium 3.7 Chloride 95 L Carbon Dioxide 39 H Anion Gap 5 L BUN 27 H Creatinine 0.6 Creat Clearance w eGFR > 60 Random Glucose 140 H Calcium 8.1 L Phosphorus 5.0 H Magnesium 1.7 L 03/30/18 06:00 WBC RBC Hgb Hct MCV MCH MCHC RDW Plt Count MPV Absolute Neuts (auto) Neutrophils % Lymphocytes % Monocytes % Eosinophils % Basophils % Nucleated RBC % PTT (Actin FS) Puncture Site Right radial ABG pH 7.40 ABG pCO2 at Pt Temp 64.2 H* D ABG pO2 at Pt Temp 89.9 D ABG HCO3 38.6 H ABG O2 Sat (Measured) 96.3 ABG O2 Content 20.1 ABG Base Excess 11.0 H Dwayne Test Positive O2 Delivery Device Vent Oxygen Flow Rate 40 PEEP 5.0 Sodium Potassium Chloride Carbon Dioxide Anion Gap BUN Creatinine Creat Clearance w eGFR Random Glucose Calcium Phosphorus Magnesium Current Medications Generic Name Dose Route Start Last Admin Trade Name Freq PRN Reason Stop Dose Admin Albuterol Sulfate 1 amp 03/28/18 00:54 Ventolin 0.083% Nebulizer Soln - NEB Q4H PRN SHORT OF BREATH/WHEEZING Albuterol/Ipratropium 1 amp 03/28/18 08:00 03/30/18 15:22 Duoneb - NEB 1 amp RQID DONTA Administration Aspirin 81 mg 03/29/18 16:00 03/30/18 09:39 Asa - PO 81 mg DAILY DONTA Administration Chlorhexidine Gluconate 1 applic 03/28/18 22:00 03/29/18 22:01 Hibiclens For Decolonization - TP 1 applic HS DONTA Administration Enoxaparin Sodium 40 mg 03/30/18 10:00 03/30/18 09:32 Lovenox - SQ 40 mg DAILY DONTA Administration Furosemide 80 mg 03/29/18 11:15 03/30/18 09:32 Lasix Injection - IVPUSH 80 mg BID DONTA Administration Ceftriaxone Sodium 2 gm/ 100 mls @ 100 mls/hr 03/28/18 12:30 03/30/18 09:20 Dextrose IVPB 100 mls/hr DAILY DONTA Administration Protocol Azithromycin 500 mg in 250 mls @ 250 mls/hr 03/28/18 14:36 03/30/18 09:38 Zithromax 500mg Ivpb (Pre-Docked) IVPB 250 mls/hr DAILY [facility]TA Administration Insulin Aspart 1 vial 03/28/18 22:00 03/30/18 12:00 Novolog Vial Sliding Scale - SQ 2 units ACHS DONTA Administration Protocol Mupirocin 1 applic 03/28/18 10:00 03/30/18 09:41 Bactroban Ointment (For Decolonization) - NS 04/02/18 09:59 1 applic BID DONTA Administration Pantoprazole Sodium 40 mg 03/28/18 01:29 03/30/18 09:27 Protonix Iv IVPUSH 40 mg DAILY DONTA Administration ASSESSMENT AND PLAN: This is a 67 year old woman with a history of morbid obesity, COPD, LEONIDES, type 2 DM, HTN, hyperlipidemia who presented to the ED with worsening SOB. 1. Acute on chronic hypoxic and hypercapnic respiratory failure secondary to acute exacerbation of COPD, acute on chronic diastolic heart failure, LEONIDES, OHS - Extubated this morning - Continue oxygen via VM - Continue ceftriaxone, Zithromax, Lasix IV, DuoNeb, albuterol as needed 2. Acute NSTEMI - Echo shows normal LV, normal LVEF, no wall motion abnormalities, impaired relaxation, mild PI - Continue aspirin - Add Lipitor - Further evaluation once stable 3. E. coli UTI - Continue ceftriaxone 4. Morbid obesity with BMI 51.9 5. Type 2 DM - Continue Novolog sliding scale 6. HTN - Continue Lasix 7. Hyperlipidemia - Start Lipitor
[2018-03-30] MEDS: CHLORHEXIDINE GLUCONATE 4% CLEANSER FOR DECOLONIZATION TP SCH (21:40)
[2018-03-31 06:19] LABS: ARTERIAL BLD GAS O2 SATURATION 94.5 % (90-98.9); ARTERIAL BLOOD GAS BASE EXCESS 11.5 meq/l (-2-2); ARTERIAL BLOOD GAS pH 7.38 (7.35-7.45)
[2018-03-31] MEDS: INSULIN SLIDING SCALE (NOVOLOG) 1 VIAL SQ SCH ×4 (06:34→21:50)
[2018-03-31 06:57] LABS: BASO % 0.2 % (0-2.0); EOS % 0.2 % (0-4.5); HEMATOCRIT 42.6 % (32.4-45.2); HEMOGLOBIN 13.9 GM/dL (10.7-15.3); LYMPH % 11.8 % (8-40); MCH 27.3 pg (25.7-33.7); MCHC 32.5 g/dl (32.0-36.0); MEAN CELL VOLUME 83.7 fl (80-96); MEAN PLT VOLUME 9.8 fl (7.5-11.1); MONO % 9.8 % (3.8-10.2); PLATELET COUNT 209 K/MM3 (134-434); RBC 5.09 M/mm3 (3.60-5.2); RDW 17.8 % (11.6-15.6); WHITE BLOOD COUNT 9.9 K/mm3 (4.0-10.0)
[2018-03-31 07:05] LABS: ALLENS TEST POSITIVE
[2018-03-31 07:07] LABS: ARTERIAL BLOOD GAS PCO2 69.4 mmHg (35-45)
[2018-03-31 07:12] LABS: ANION GAP 6 MMOL/L (8-16); BLOOD UREA NITROGEN 20 mg/dL (7-18); CALCIUM 8.6 mg/dL (8.5-10.1); CHLORIDE 93 mmol/L (98-107); CO2 41 mmol/L (21-32); CREATININE 0.6 mg/dL (0.55-1.3); GLUCOSE,RANDOM 96 mg/dL (74-106); POTASSIUM 4.2 mmol/L (3.5-5.1); SODIUM 140 mmol/L (136-145)
[2018-03-31] MEDS ORDERED: POTASSIUM CHLORIDE TABS 20 MEQ TABLET.ER (FP) PO ONE (08:01)
[2018-03-31] MEDS ORDERED: MAGNESIUM SULF 50% (8.12 MEQ/2 ML-1 GM VIAL) IVPB ONE (08:07)
[2018-03-31] MEDS: ALBUTEROL SO4 2.5/IPRATROPIUM 0.5 INH SOL 3 ML VIAL.NEB. NEB SCH ×4 (08:39→20:35)
[2018-03-31] MEDS ORDERED: DEXTROSE 5%-WATER 100 ML IVPB ONE (08:56)
[2018-03-31] MEDS: CEFTRIAXONE 2 GM in DEXTROSE 5%-WATER 100 ML IVPB SCH (09:03)
[2018-03-31] MEDS: ENOXAPARIN NA (PORCINE) 40 MG/0.4 ML DISP.SYRIN SQ SCH (09:04)
[2018-03-31] MEDS: FUROSEMIDE 40 MG/4 ML INJECTABLE VIAL IVPUSH SCH ×2 (09:04→21:50)
[2018-03-31] MEDS: PANTOPRAZOLE SODIUM 40 MG VIAL IVPUSH SCH (09:04)
[2018-03-31] MEDS: AZITHROMYCIN IVPB 500 MG/250 ML BAG IVPB SCH (09:04)
[2018-03-31] MEDS: ASPIRIN 81 MG CHEWABLE TABLETS PO SCH (09:04)
[2018-03-31] MEDS: MUPIROCIN 2% TOPICAL OINTMENT FOR DECOLONIZATION NS SCH ×2 (09:05→23:57)
--- NOTE | 2018-03-31 09:21 | PN ---
Progress Note, Physician Chief Complaint: Intubated; not sedated. History of Present Illness: The patient is a 67-year-old female with a past medical history of asthma, CHF, COPD, HTN, DM, and HLD presenting with shortness of breath and bilateral pitting edema for the past 2 days. Patient is on 20 of Lasix PO daily, but admits to being noncompliant with her meds. Patient also admits to not following up with her PCP. Patient denies chest pain, palpitations, dizziness, headache, vision changes, numbness/weakness/tingling in her extremities, N/V/D, or urinary symptoms. Allergies: NKDA Surgeries: None reported Social Hx: No reported alcohol, drug or cigarette use. - Current Medication List Current Medications: Active Medications Albuterol Sulfate (Ventolin 0.083% Nebulizer Soln -) 1 amp NEB Q4H PRN PRN Reason: SHORT OF BREATH/WHEEZING Albuterol/Ipratropium (Duoneb -) 1 amp NEB RQID [facility] Last Admin: 03/31/18 08:39 Dose: 1 amp Aspirin (Asa -) 81 mg PO DAILY [facility] Last Admin: 03/31/18 09:04 Dose: 81 mg Chlorhexidine Gluconate (Hibiclens For Decolonization -) 1 applic TP HS [facility] Last Admin: 03/30/18 21:40 Dose: 1 applic Enoxaparin Sodium (Lovenox -) 40 mg SQ DAILY [facility] Last Admin: 03/31/18 09:04 Dose: 40 mg Furosemide (Lasix Injection -) 80 mg IVPUSH BID [facility] Last Admin: 03/31/18 09:04 Dose: 80 mg Ceftriaxone Sodium 2 gm/ (Dextrose) 100 mls @ 100 mls/hr IVPB DAILY [facility]; Protocol Last Admin: 03/31/18 09:03 Dose: 100 mls/hr Azithromycin (Zithromax 500mg Ivpb (Pre-Docked)) 500 mg in 250 mls @ 250 mls/ hr IVPB DAILY [facility] Last Admin: 03/31/18 09:04 Dose: 250 mls/hr Insulin Aspart (Novolog Vial Sliding Scale -) 1 vial SQ ACHS [facility]; Protocol Last Admin: 03/31/18 06:34 Dose: Not Given Mupirocin (Bactroban Ointment (For Decolonization) -) 1 applic NS BID [facility] Stop: 04/02/18 09:59 Last Admin: 03/31/18 09:05 Dose: 1 applic Pantoprazole Sodium (Protonix Iv) 40 mg IVPUSH DAILY [facility] Last Admin: 03/31/18 09:04 Dose: 40 mg - Objective Vital Signs: Vital Signs Temperature 98.4 F 03/31/18 06:00 Pulse Rate 76 03/31/18 06:00 Respiratory Rate 22 H 03/31/18 06:00 Blood Pressure 132/80 03/31/18 06:00 O2 Sat by Pulse Oximetry (%) 94 L 03/30/18 22:00 Constitutional: Yes: Anxious Eyes: Yes: WNL HENT: Yes: WNL Neck: Yes: Decreased ROM Cardiovascular: Yes: S1, S2 Respiratory: Yes: Diminished Gastrointestinal: Yes: Soft ...Rectal Exam: Yes: Deferred Genitourinary: No: Anuria Breast(s): Yes: WNL Musculoskeletal: Yes: Other (intubated; sedated) Extremities: Yes: Cool Edema: Yes Edema: LLE: Trace, RLE: Trace Peripheral Pulses WNL: Yes Integumentary: Yes: WNL Neurological: Yes: Unresponsive Psychiatric: Yes: Other Labs: CBC, BMP 03/31/18 05:30 03/31/18 05:30 - ....Imaging Chest X-ray: Image Reviewed EKG: Image Reviewed (NSR; r/o ischemic changes) Problem List - Problems (1) NSTEMI (non-ST elevated myocardial infarction) Assessment/Plan: TNI trending down; now 0.6 ECHO: normal LVEF; abnormal diastoic compliance. For coronary artery evaluation when stable. Start atorvastatin 80 mg daily; f/u lipids. Code(s): I21.4 - NON-ST ELEVATION (NSTEMI) MYOCARDIAL INFARCTION (2) COPD exacerbation Code(s): J44.1 - CHRONIC OBSTRUCTIVE PULMONARY DISEASE W (ACUTE) EXACERBATION (3) Respiratory failure Assessment/Plan: Intubated, mechanically ventilated; O2, bronchodilators, steroid, antibiotics per pulmonary. Code(s): J96.90 - RESPIRATORY FAILURE, UNSP, UNSP W HYPOXIA OR HYPERCAPNIA Qualifiers: Chronicity: unspecified Respiratory failure complication: hypoxia and hypercapnia Qualified Code(s): J96.91 - Respiratory failure, unspecified with hypoxia; J96.92 - Respiratory failure, unspecified with hypercapnia (4) Diastolic CHF Code(s): I50.30 - UNSPECIFIED DIASTOLIC (CONGESTIVE) HEART FAILURE Assessment/Plan CCU time spent: 35 minutes.
--- NOTE | 2018-03-31 09:31 | PN ---
Physical Exam: SUBJECTIVE: Patient seen and examined in ICU at bedside this morning. She is resting comfortably in exam-bed with venturi-mask 40%. She endorses improvement of her cough and shortness of breath. Denies subjective fevers, chills, chest pain, palpitations, abdominal pain, nausea, vomiting. OBJECTIVE: Vital Signs Period Temp Pulse Resp BP Sys/Garner Pulse Ox Last 24 Hr 97.8 F-98.4 F 76-97 14-26 108-134/62-90 93-97 GENERAL: Awake, alert. No acute distress. HEAD: Normocephalic, atraumatic EYES: Pupils equal, round and reactive to light. Extraocular movements intact B/ L. No conjunctival injection B/L. NECK: Supple without lymphadenopathy LUNGS: Good inspiratory effort, improving air entry B/L. Rhonchi, and expiratory wheezes auscultated B/L. HEART: Regular rate and rhythm, + S1 and S2 auscultated. ABDOMEN: Obese. Soft. normoactive bowel sounds, no guarding, no rebound, no masses. No hepatomegaly appreciated. EXTREMITIES: 2+ radial pulses b/l, 1+ dorsalis pedis pulses b/l. Chronic venous stasis changes b/l lower extremities. 1+ pitting edema improving B/L. NEUROLOGICAL: Good muscle tone B/L upper and lower extremities. Moving all 4 extremities spontaneously with strength 4/5 b/l upper and lower extremities. No gross focal deficits. Laboratory Results - last 24 hr 03/31/18 03/31/18 03/31/18 05:30 05:30 05:30 WBC 9.9 RBC 5.09 Hgb 13.9 Hct 42.6 MCV 83.7 MCH 27.3 MCHC 32.5 RDW 17.8 H Plt Count 209 MPV 9.8 Absolute Neuts (auto) 7.8 Neutrophils % 78.0 Lymphocytes % 11.8 D Monocytes % 9.8 Eosinophils % 0.2 Basophils % 0.2 Nucleated RBC % 0 PTT (Actin FS) 30.5 Puncture Site ABG pH ABG pCO2 at Pt Temp ABG pO2 at Pt Temp ABG HCO3 ABG O2 Sat (Measured) ABG O2 Content ABG Base Excess Dwayne Test O2 Delivery Device Oxygen Flow Rate Sodium 140 Potassium 4.2 Chloride 93 L Carbon Dioxide 41 H Anion Gap 6 L BUN 20 H Creatinine 0.6 Creat Clearance w eGFR > 60 Random Glucose 96 Calcium 8.6 Phosphorus 4.0 Magnesium 2.0 03/31/18 05:50 WBC RBC Hgb Hct MCV MCH MCHC RDW Plt Count MPV Absolute Neuts (auto) Neutrophils % Lymphocytes % Monocytes % Eosinophils % Basophils % Nucleated RBC % PTT (Actin FS) Puncture Site Left radial ABG pH 7.38 ABG pCO2 at Pt Temp 69.4 H* ABG pO2 at Pt Temp 79.0 L ABG HCO3 39.6 H ABG O2 Sat (Measured) 94.5 ABG O2 Content 18.7 ABG Base Excess 11.5 H Dwayne Test Positive O2 Delivery Device Venti mask Oxygen Flow Rate 40% Sodium Potassium Chloride Carbon Dioxide Anion Gap BUN Creatinine Creat Clearance w eGFR Random Glucose Calcium Phosphorus Magnesium Active Medications Generic Name Dose Route Start Last Admin Trade Name Freq PRN Reason Stop Dose Admin Albuterol Sulfate 1 amp 03/28/18 00:54 Ventolin 0.083% Nebulizer Soln - NEB Q4H PRN SHORT OF BREATH/WHEEZING Albuterol/Ipratropium 1 amp 03/28/18 08:00 03/31/18 08:39 Duoneb - NEB 1 amp RQID [facility] Administration Aspirin 81 mg 03/29/18 16:00 03/31/18 09:04 Asa - PO 81 mg DAILY [facility] Administration Chlorhexidine Gluconate 1 applic 03/28/18 22:00 03/30/18 21:40 Hibiclens For Decolonization - TP 1 applic HS [facility] Administration Enoxaparin Sodium 40 mg 03/30/18 10:00 03/31/18 09:04 Lovenox - SQ 40 mg DAILY [facility] Administration Furosemide 80 mg 03/29/18 11:15 03/31/18 09:04 Lasix Injection - IVPUSH 80 mg BID [facility] Administration Ceftriaxone Sodium 2 gm/ 100 mls @ 100 mls/hr 03/28/18 12:30 03/31/18 09:03 Dextrose IVPB 100 mls/hr DAILY [facility] Administration Protocol Azithromycin 500 mg in 250 mls @ 250 mls/hr 03/28/18 14:36 03/31/18 09:04 Zithromax 500mg Ivpb (Pre-Docked) IVPB 250 mls/hr DAILY [facility] Administration Insulin Aspart 1 vial 03/28/18 22:00 03/31/18 06:34 Novolog Vial Sliding Scale - SQ Not Given ACHS [facility] Protocol Mupirocin 1 applic 03/28/18 10:00 03/31/18 09:05 Bactroban Ointment (For Decolonization) - NS 04/02/18 09:59 1 applic BID [facility] Administration Pantoprazole Sodium 40 mg 03/28/18 01:29 03/31/18 09:04 Protonix Iv IVPUSH 40 mg DAILY [facility] Administration ASSESSMENT/PLAN: Patient is a 67 year old female with history of morbid obesity, COPD, LEONIDES ( poorly compliant with home CPAP), diabetes mellitus, hypertension, hyperlipidemia, presents with complaint of shortness of breath worsening over the past two weeks. Acute hypoxic hypercapnic respiratory failure -Likely due to CHF exacerbation secondary to poor home medication compliance vs. community acquired pneumonia -Patient is saturating well on venturi- mask. -Duonebs QID, Albuterol nebulizer Q4H PRN -Symbicort 160/ 4.5 2 puffs BID -Lasix decreased to 40mg IV BID -Solu-Medrol discontinued. -Ceftriaxone 2grams IV daily (day 4) -Azithromycin 500 mg IV daily (day 4) -Urine negative for legionella antigens -RSV positive, influenza swab negative. -Blood cultures preliminary negative at 72 hours -ID consult (Dr. Ayala) appreciated. -Pulmonology consult (Dr. Paige, Dr. Sanches) appreciated. -Repeat chest Xray shows improvement of B/L infiltrates upon my read, Troponinemia -0.79 -> 1.12 -> 0.79. Likely secondary to demand ischemia. -EKG shows sinus rhythm at 89 BPM, nonspecfic T wave abnormality. No ischemic changes noted. -Heparin drip discontinued after 48 hours. -Cardiac ECHO shows LV normal in size EF 60-65%. Mild impaired LV relaxation. -Cardiology consult (Dr. Jay) appreciated. UTI -Urine culture grows E. coli -Patient is receiving ceftriaxone 2 grams IV daily. Diabetes mellitus -Insulin sliding scale ACHS -Fingerstick blood glucose ACHS Hypertension -Currently holding home antihypertensives. -Follow vital signs FEN -No IV fluids -Follow CMP -Soft diabetic, sodium restricted diet Prophylaxis -Lovenox 40mg subq daily -Protonix 40mg IV daily [facility] Visit type - Emergency Visit Emergency Visit: Yes ED Registration Date: 03/28/18 Care time: The patient presented to the Emergency Department on the above date and was hospitalized for further evaluation of their emergent condition. - New Patient This patient is new to me today: No - Critical Care Critical Care patient: Yes Total Critical Care Time (in minutes): 35 Critical Care Statement: The care of this patient involved high complexity decision making to prevent further life threatening deterioration of the patient 's condition and/or to evaluate & treat vital organ system(s) failure or risk of failure. - Discharge Referral Referred to [facility] Med [facility].C.: No
[2018-03-31] MEDS ORDERED: FUROSEMIDE 40 MG/4 ML INJECTABLE VIAL IVPUSH SCH (11:20)
[2018-03-31] MEDS ORDERED: ALBUTEROL SO4 0.083% IH SOL 2.5 MG/3 ML VIAL.NEB. NEB PRN (11:29)
--- NOTE | 2018-03-31 11:41 | PN ---
Progress Note, Physician History of Present Illness: 67 year old female with PMHx CHF, COPD on home O2, LEONIDES on CPAP, IDDM, morbid obesity, HTN, HLD, non-compliance with diuretics presented with shortness of breath, increase lower extremity swelling found to have acute respiratory distress requiring intubation for airway protection admitted to ICU for heart failure/COPD exacerbation. Cardiology consulted for further management. Labs remarkable for BNP 10,000s, tropnon 1.1. Currently hemodynamically stable - on ASA, heparin gtt and IV lasix. - Current Medication List Current Medications: Active Medications Albuterol Sulfate (Ventolin 0.083% Nebulizer Soln -) 1 amp NEB Q4H PRN PRN Reason: SHORT OF BREATH/WHEEZING Albuterol/Ipratropium (Duoneb -) 1 amp NEB RQID [facility] Aspirin (Asa -) 81 mg PO DAILY [facility] Chlorhexidine Gluconate (Hibiclens For Decolonization -) 1 applic TP HS [facility] Enoxaparin Sodium (Lovenox -) 40 mg SQ DAILY [facility] Furosemide (Lasix Injection -) 40 mg IVPUSH BID [facility] Azithromycin (Zithromax 500mg Ivpb (Pre-Docked)) 500 mg in 250 mls @ 250 mls/ hr IVPB DAILY [facility] Ceftriaxone Sodium 2 gm/ (Dextrose) 100 mls @ 200 mls/hr IVPB DAILY [facility]; Protocol Insulin Aspart (Novolog Vial Sliding Scale -) 1 vial SQ ACHS [facility]; Protocol Mupirocin (Bactroban Ointment (For Decolonization) -) 1 applic NS BID [facility] Stop: 04/02/18 09:59 - Objective Vital Signs: Vital Signs Temperature 97.8 F 03/31/18 10:00 Pulse Rate 84 03/31/18 10:00 Respiratory Rate 24 H 03/31/18 10:00 Blood Pressure 118/71 03/31/18 10:00 O2 Sat by Pulse Oximetry (%) 95 03/31/18 09:00 Eyes: Yes: WNL, Conjunctiva Clear, EOM Intact HENT: Yes: WNL, Atraumatic, Normocephalic Neck: Yes: WNL, Supple, Trachea Midline Cardiovascular: Yes: WNL, Regular Rate and Rhythm Respiratory: Yes: WNL, Regular, CTA Bilaterally Gastrointestinal: Yes: WNL, Normal Bowel Sounds Genitourinary: Yes: WNL Musculoskeletal: Yes: WNL Extremities: Yes: WNL Edema: No Integumentary: Yes: WNL Neurological: Yes: WNL, Alert, Oriented ...Motor Strength: WNL Psychiatric: Yes: WNL Labs: CBC, BMP 03/31/18 05:30 03/31/18 05:30 Assessment/Plan - Problems (1) NSTEMI (non-ST elevated myocardial infarction) Assessment/Plan: TNI trending down; now 0.6 ECHO: normal LVEF; abnormal diastoic compliance. For coronary artery evaluation when stable. Start atorvastatin 80 mg daily; f/u lipids. Code(s): I21.4 - NON-ST ELEVATION (NSTEMI) MYOCARDIAL INFARCTION (2) COPD exacerbation Code(s): J44.1 - CHRONIC OBSTRUCTIVE PULMONARY DISEASE W (ACUTE) EXACERBATION (3) Respiratory failure Code(s): J96.90 - RESPIRATORY FAILURE, UNSP, UNSP W HYPOXIA OR HYPERCAPNIA Qualifiers: Chronicity: unspecified Respiratory failure complication: hypoxia and hypercapnia Qualified Code(s): J96.91 - Respiratory failure, unspecified with hypoxia; J96.92 - Respiratory failure, unspecified with hypercapnia (4) Diastolic CHF Code(s): I50.30 - UNSPECIFIED DIASTOLIC (CONGESTIVE) HEART FAILURE
--- NOTE | 2018-03-31 12:05 | PN ---
Teaching Attending Note Name of Resident: Jamari Gabriel ATTENDING PHYSICIAN STATEMENT I saw and evaluated the patient. I reviewed the resident's note and discussed the case with the resident. I agree with the resident's findings and plan as documented. SUBJECTIVE: Pt seen and examined in the ICU. Remains extubated. Breathing continues to improve. +nonproductive cough. OBJECTIVE: Vital Signs Period Temp Pulse Resp BP Sys/Garner Pulse Ox Last 24 Hr 97.8 F-98.4 F 76-112 20-26 108-134/62-104 93-95 Intake & Output 03/28/18 03/29/18 03/30/18 03/31/18 23:59 23:59 23:59 23:59 Intake Total 804 236 5986.5 200 Output Total 3600 3700 4700 2300 Balance -2814 -3019 -2612.5 -2100 Weight 138.941 kg 138.799 kg 137.098 kg 129.812 kg Gen: NAD, less tachypneic Heart: RRR Lung: decreased breath sounds at the bases Abd: soft, obese, nontender Ext: less edema CBC, BMP 03/31/18 05:30 03/31/18 05:30 Active Medications Albuterol Sulfate (Ventolin 0.083% Nebulizer Soln -) 1 amp NEB Q4H PRN PRN Reason: SHORT OF BREATH/WHEEZING Albuterol/Ipratropium (Duoneb -) 1 amp NEB RQID [facility] Aspirin (Asa -) 81 mg PO DAILY [facility] Chlorhexidine Gluconate (Hibiclens For Decolonization -) 1 applic TP HS [facility] Enoxaparin Sodium (Lovenox -) 40 mg SQ DAILY [facility] Furosemide (Lasix Injection -) 40 mg IVPUSH BID [facility] Azithromycin (Zithromax 500mg Ivpb (Pre-Docked)) 500 mg in 250 mls @ 250 mls/ hr IVPB DAILY [facility] Ceftriaxone Sodium 2 gm/ (Dextrose) 100 mls @ 200 mls/hr IVPB DAILY [facility]; Protocol Insulin Aspart (Novolog Vial Sliding Scale -) 1 vial SQ ACHS [facility]; Protocol Mupirocin (Bactroban Ointment (For Decolonization) -) 1 applic NS BID [facility] Stop: 04/02/18 09:59 ASSESSMENT AND PLAN: Acute on likely Chronic Hypoxic and Hypercapneic Respiratory Failure improving Acute on Chronic Diastolic Heart Failure +Troponins/Acute NSTEMI COPD Morbid Obesity LEONIDES/OHS HTN DM Hyperlipidemia UTI - continue lasix, can decrease dose - monitor urine output, creatinine - daily weights - keep net negative - continue antibiotics for UTI - taper FiO2, PEEP to keep SpO2 >90% - inhaled bronchodilators - PO as tolerated - DVT/GI prophylaxis - can monitor on floor critical care time spent in reviewing chart, evaluating patient and formulating plan 35 min
[2018-03-31 13:16] LABS: CHOLESTEROL 155 mg/dL (50-200); HDL CHOLESTEROL 46 mg/dL (40-60); TRIGLYCERIDES 124 mg/dL (0-150)
--- NOTE | 2018-03-31 14:28 | PN ---
Physical Exam: SUBJECTIVE: Patient seen and examined at bedside. Successfully extubated yesterday. Markedly improved, resting comfortably, no overnight events or complaints. OBJECTIVE: Vital Signs Period Temp Pulse Resp BP Sys/Garner Pulse Ox Last 24 Hr 97.8 F-98.4 F 76-112 17-26 108-132/62-104 93-95 GENERAL: A&Ox3, NAD HEAD: NC/AT EYES: PERRLA, EOMI EARS, NOSE, THROAT: MMM NECK: Supple, +JVD improving LUNGS: Significantly clearer, diffuse residual rales and wheezing HEART: RRR no m/r/g ABDOMEN: soft, obese, +bs, NT, ND EXTREMITIES: Pedal edema b/l improving, venous stasis NEUROLOGICAL: limited exam, alerts to sternal rub SKIN: Warm, dry, normal turgor Laboratory Results - last 24 hr 03/31/18 03/31/18 03/31/18 05:30 05:30 05:30 WBC 9.9 RBC 5.09 Hgb 13.9 Hct 42.6 MCV 83.7 MCH 27.3 MCHC 32.5 RDW 17.8 H Plt Count 209 MPV 9.8 Absolute Neuts (auto) 7.8 Neutrophils % 78.0 Lymphocytes % 11.8 D Monocytes % 9.8 Eosinophils % 0.2 Basophils % 0.2 Nucleated RBC % 0 PTT (Actin FS) 30.5 Puncture Site ABG pH ABG pCO2 at Pt Temp ABG pO2 at Pt Temp ABG HCO3 ABG O2 Sat (Measured) ABG O2 Content ABG Base Excess Dwayne Test O2 Delivery Device Oxygen Flow Rate Sodium 140 Potassium 4.2 Chloride 93 L Carbon Dioxide 41 H Anion Gap 6 L BUN 20 H Creatinine 0.6 Creat Clearance w eGFR > 60 Random Glucose 96 Calcium 8.6 Phosphorus 4.0 Magnesium 2.0 Triglycerides 124 Cholesterol 155 Total LDL Cholesterol 90 HDL Cholesterol 46 03/31/18 05:50 WBC RBC Hgb Hct MCV MCH MCHC RDW Plt Count MPV Absolute Neuts (auto) Neutrophils % Lymphocytes % Monocytes % Eosinophils % Basophils % Nucleated RBC % PTT (Actin FS) Puncture Site Left radial ABG pH 7.38 ABG pCO2 at Pt Temp 69.4 H* ABG pO2 at Pt Temp 79.0 L ABG HCO3 39.6 H ABG O2 Sat (Measured) 94.5 ABG O2 Content 18.7 ABG Base Excess 11.5 H Dwayne Test Positive O2 Delivery Device Venti mask Oxygen Flow Rate 40% Sodium Potassium Chloride Carbon Dioxide Anion Gap BUN Creatinine Creat Clearance w eGFR Random Glucose Calcium Phosphorus Magnesium Triglycerides Cholesterol Total LDL Cholesterol HDL Cholesterol Active Medications Generic Name Dose Route Start Last Admin Trade Name Freq PRN Reason Stop Dose Admin Albuterol Sulfate 1 amp 03/31/18 11:29 Ventolin 0.083% Nebulizer Soln - NEB Q4H PRN SHORT OF BREATH/WHEEZING Albuterol/Ipratropium 1 amp 03/31/18 12:00 03/31/18 11:30 Duoneb - NEB 1 amp RQID [facility] Administration Aspirin 81 mg 04/01/18 10:00 Asa - PO DAILY [facility] Chlorhexidine Gluconate 1 applic 03/31/18 22:00 Hibiclens For Decolonization - TP HS [facility] Enoxaparin Sodium 40 mg 04/01/18 10:00 Lovenox - SQ DAILY [facility] Furosemide 40 mg 03/31/18 22:00 Lasix Injection - IVPUSH BID [facility] Azithromycin 500 mg in 250 mls @ 250 mls/hr 04/01/18 10:00 Zithromax 500mg Ivpb (Pre-Docked) IVPB DAILY [facility] Ceftriaxone Sodium 2 gm/ 100 mls @ 200 mls/hr 04/01/18 10:00 Dextrose IVPB DAILY [facility] Protocol Insulin Aspart 1 vial 03/31/18 16:30 Novolog Vial Sliding Scale - SQ ACHS [facility] Protocol Mupirocin 1 applic 03/31/18 22:00 Bactroban Ointment (For Decolonization) - NS 04/02/18 09:59 BID [facility] ASSESSMENT/PLAN: 67 y/o F w/ PMHx CHF, COPD on home O2, LEONIDES on CPAP, IDDM, morbid obesity, HTN, HLD, presents in acute hypercapneic respiratory failure and acute CHF exacerbation 2/2 reported medication non-adherence, superimposed CAP and UTI. #pulmonary -successfully extubated -maintaining saturation on NC -ABG at likely baseline -d/c steroids -bronchodilators standing and PRN -f/u ABG, CXR #CV -cardiology following -troponemia resolved -completed heparin gtt, now prophylactic Lovenox -reduce Lasix to 40 BID -strict Is & Os -daily weights -koenig in place -echo showing no EF reduction, questionable correlation to clinical status -maintain Mg>2, K>4.5 #ID -treating empirically for CAP -additionally urine Cx growing E coli -cont ceftriaxone/azithromycin as per ID (day 3) #nephrology -no active issues -trend BMP, follow Cr, replete K and Mg as needed #endocrine -BGM, SSI #FEN -no IVF -monitor and correct electrolytes -diabetic/soft low Na diet #PPx -DVT: Lovenox 40 subq -GI: IV PTX #code -full #Dispo -transfer to med/surg Visit type - Emergency Visit Emergency Visit: No - New Patient This patient is new to me today: No - Critical Care Critical Care patient: Yes Total Critical Care Time (in minutes): 40 Critical Care Statement: The care of this patient involved high complexity decision making to prevent further life threatening deterioration of the patient 's condition and/or to evaluate & treat vital organ system(s) failure or risk of failure.
[2018-03-31] MEDS ORDERED: FLU VACCINE QUAD 60 MCG/0.5 ML (MDV 18-19) IM ONE ×2 (17:44→20:15)
--- NOTE | 2018-03-31 18:17 | PN ---
Teaching Attending Note Name of Resident: Xu Vargas ATTENDING PHYSICIAN STATEMENT I saw and evaluated the patient. I reviewed the resident's note and discussed the case with the resident. I agree with the resident's findings and plan as documented. SUBJECTIVE: Patient is comfortable sitting in chair. She denies SOB. She reports cough with sputum since she was extubated. OBJECTIVE: Vital Signs Period Temp Pulse Resp BP Sys/Garner Pulse Ox Last 24 Hr 97.8 F-98.4 F 76-112 17-26 108-132/62-104 93-95 HEART: S1S2, RRR LUNGS: Scattered rhonchi ABDOMEN: Obese, soft ,non-tender, non-distended, normal BS EXTREMITIES: 1+ edema, chronic changes Laboratory Results - last 24 hr 03/28/18 03/28/18 03/28/18 05:42 11:49 16:41 WBC RBC Hgb Hct MCV MCH MCHC RDW Plt Count MPV Absolute Neuts (auto) Neutrophils % Lymphocytes % Monocytes % Eosinophils % Basophils % Nucleated RBC % PTT (Actin FS) Puncture Site ABG pH ABG pCO2 at Pt Temp ABG pO2 at Pt Temp ABG HCO3 ABG O2 Sat (Measured) ABG O2 Content ABG Base Excess Dwayne Test O2 Delivery Device Oxygen Flow Rate Sodium Potassium Chloride Carbon Dioxide Anion Gap BUN Creatinine Creat Clearance w eGFR POC Glucometer 206.11578 210.64852 92.47498 Random Glucose Calcium Phosphorus Magnesium Triglycerides Cholesterol Total LDL Cholesterol HDL Cholesterol 03/28/18 03/29/18 03/29/18 22:52 05:27 12:02 WBC RBC Hgb Hct MCV MCH MCHC RDW Plt Count MPV Absolute Neuts (auto) Neutrophils % Lymphocytes % Monocytes % Eosinophils % Basophils % Nucleated RBC % PTT (Actin FS) Puncture Site ABG pH ABG pCO2 at Pt Temp ABG pO2 at Pt Temp ABG HCO3 ABG O2 Sat (Measured) ABG O2 Content ABG Base Excess Dwayne Test O2 Delivery Device Oxygen Flow Rate Sodium Potassium Chloride Carbon Dioxide Anion Gap BUN Creatinine Creat Clearance w eGFR POC Glucometer 263.57194 271.80073 300.51772 Random Glucose Calcium Phosphorus Magnesium Triglycerides Cholesterol Total LDL Cholesterol HDL Cholesterol 03/29/18 03/29/18 03/30/18 16:18 22:24 11:48 WBC RBC Hgb Hct MCV MCH MCHC RDW Plt Count MPV Absolute Neuts (auto) Neutrophils % Lymphocytes % Monocytes % Eosinophils % Basophils % Nucleated RBC % PTT (Actin FS) Puncture Site ABG pH ABG pCO2 at Pt Temp ABG pO2 at Pt Temp ABG HCO3 ABG O2 Sat (Measured) ABG O2 Content ABG Base Excess Dwayne Test O2 Delivery Device Oxygen Flow Rate Sodium Potassium Chloride Carbon Dioxide Anion Gap BUN Creatinine Creat Clearance w eGFR POC Glucometer 256.08430 231.21527 [phone] Random Glucose Calcium Phosphorus Magnesium Triglycerides Cholesterol Total LDL Cholesterol HDL Cholesterol 03/30/18 03/30/18 03/31/18 17:11 21:55 05:30 WBC RBC Hgb Hct MCV MCH MCHC RDW Plt Count MPV Absolute Neuts (auto) Neutrophils % Lymphocytes % Monocytes % Eosinophils % Basophils % Nucleated RBC % PTT (Actin FS) 30.5 Puncture Site ABG pH ABG pCO2 at Pt Temp ABG pO2 at Pt Temp ABG HCO3 ABG O2 Sat (Measured) ABG O2 Content ABG Base Excess Dwayne Test O2 Delivery Device Oxygen Flow Rate Sodium Potassium Chloride Carbon Dioxide Anion Gap BUN Creatinine Creat Clearance w eGFR POC Glucometer 282.13056 202.28939 Random Glucose Calcium Phosphorus Magnesium Triglycerides Cholesterol Total LDL Cholesterol HDL Cholesterol 03/31/18 03/31/18 03/31/18 05:30 05:30 05:50 WBC 9.9 RBC 5.09 Hgb 13.9 Hct 42.6 MCV 83.7 MCH 27.3 MCHC 32.5 RDW 17.8 H Plt Count 209 MPV 9.8 Absolute Neuts (auto) 7.8 Neutrophils % 78.0 Lymphocytes % 11.8 D Monocytes % 9.8 Eosinophils % 0.2 Basophils % 0.2 Nucleated RBC % 0 PTT (Actin FS) Puncture Site Left radial ABG pH 7.38 ABG pCO2 at Pt Temp 69.4 H* ABG pO2 at Pt Temp 79.0 L ABG HCO3 39.6 H ABG O2 Sat (Measured) 94.5 ABG O2 Content 18.7 ABG Base Excess 11.5 H Dwayne Test Positive O2 Delivery Device Venti mask Oxygen Flow Rate 40% Sodium 140 Potassium 4.2 Chloride 93 L Carbon Dioxide 41 H Anion Gap 6 L BUN 20 H Creatinine 0.6 Creat Clearance w eGFR > 60 POC Glucometer Random Glucose 96 Calcium 8.6 Phosphorus 4.0 Magnesium 2.0 Triglycerides 124 Cholesterol 155 Total LDL Cholesterol 90 HDL Cholesterol 46 03/31/18 03/31/18 11:16 16:16 WBC RBC Hgb Hct MCV MCH MCHC RDW Plt Count MPV Absolute Neuts (auto) Neutrophils % Lymphocytes % Monocytes % Eosinophils % Basophils % Nucleated RBC % PTT (Actin FS) Puncture Site ABG pH ABG pCO2 at Pt Temp ABG pO2 at Pt Temp ABG HCO3 ABG O2 Sat (Measured) ABG O2 Content ABG Base Excess Dwayne Test O2 Delivery Device Oxygen Flow Rate Sodium Potassium Chloride Carbon Dioxide Anion Gap BUN Creatinine Creat Clearance w eGFR POC Glucometer 92.34519 72.58126 Random Glucose Calcium Phosphorus Magnesium Triglycerides Cholesterol Total LDL Cholesterol HDL Cholesterol Current Medications Generic Name Dose Route Start Last Admin Trade Name Freq PRN Reason Stop Dose Admin Albuterol Sulfate 1 amp 03/31/18 11:29 Ventolin 0.083% Nebulizer Soln - NEB Q4H PRN SHORT OF BREATH/WHEEZING Albuterol/Ipratropium 1 amp 03/31/18 12:00 03/31/18 16:44 Duoneb - NEB Not Given RQID [facility] Aspirin 81 mg 04/01/18 10:00 Asa - PO DAILY [facility] [place] Chlorhexidine Gluconate 1 applic 03/31/18 22:00 Hibiclens For Decolonization - TP HS [facility] [place] Enoxaparin Sodium 40 mg 04/01/18 10:00 Lovenox - SQ DAILY [facility] [place] Furosemide 40 mg 03/31/18 22:00 Lasix Injection - IVPUSH BID [facility] [place] Azithromycin 500 mg in 250 mls @ 250 mls/hr 04/01/18 10:00 Zithromax 500mg Ivpb (Pre-Docked) IVPB DAILY [facility] [place] Ceftriaxone Sodium 2 gm/ 100 mls @ 200 mls/hr 04/01/18 10:00 Dextrose IVPB DAILY [facility] [place] Protocol Insulin Aspart 1 vial 03/31/18 16:30 03/31/18 16:20 Novolog Vial Sliding Scale - SQ Not Given ACHS [facility] [place] Protocol Mupirocin 1 applic 03/31/18 22:00 Bactroban Ointment (For Decolonization) - NS 04/02/18 09:59 BID [facility] ASSESSMENT AND PLAN: This is a 67 year old woman with a history of morbid obesity, COPD, LEONIDES, type 2 DM, HTN, hyperlipidemia who presented to the ED with worsening SOB. 1. Acute on chronic hypoxic and hypercapnic respiratory failure secondary to acute exacerbation of COPD, acute on chronic diastolic heart failure, LEONIDES, OHS - Extubated 03/30 - On nasal cannula O2 - maintain saturation >90% - Continue ceftriaxone, Zithromax, Lasix IV, DuoNeb, albuterol as needed 2. Acute NSTEMI - Echo shows normal LV, normal LVEF, no wall motion abnormalities, impaired relaxation, mild PI - Continue aspirin - Add Lipitor - Further evaluation once stable 3. E. coli UTI - Continue ceftriaxone 4. Morbid obesity 5. Type 2 DM - Continue Novolog sliding scale 6. HTN - Continue Lasix 7. Hyperlipidemia - Start Lipitor
--- NOTE | 2018-03-31 19:40 | PN ---
Progress Note, Physician History of Present Illness: Extubated OOB in chair Offers no complaints Afebrile WBC improved - Current Medication List Current Medications: Active Medications Albuterol Sulfate (Ventolin 0.083% Nebulizer Soln -) 1 amp NEB Q4H PRN PRN Reason: SHORT OF BREATH/WHEEZING Albuterol/Ipratropium (Duoneb -) 1 amp NEB RQID [facility] Last Admin: 03/31/18 16:44 Dose: Not Given Aspirin (Asa -) 81 mg PO DAILY [facility] Chlorhexidine Gluconate (Hibiclens For Decolonization -) 1 applic TP HS [facility] Enoxaparin Sodium (Lovenox -) 40 mg SQ DAILY [facility] Furosemide (Lasix Injection -) 40 mg IVPUSH BID [facility] Azithromycin (Zithromax 500mg Ivpb (Pre-Docked)) 500 mg in 250 mls @ 250 mls/ hr IVPB DAILY [facility] Ceftriaxone Sodium 2 gm/ (Dextrose) 100 mls @ 200 mls/hr IVPB DAILY [facility]; Protocol Influenza Virus Vaccine Quadrival (Flulaval Quad [id number]) 60 mcg IM ONCE ONE Stop: 03/31/18 18:46 Insulin Aspart (Novolog Vial Sliding Scale -) 1 vial SQ ACHS [facility]; Protocol Last Admin: 03/31/18 16:20 Dose: Not Given Mupirocin (Bactroban Ointment (For Decolonization) -) 1 applic NS BID [facility] Stop: 04/02/18 09:59 - Objective Vital Signs: Vital Signs Temperature 98.4 F 03/31/18 14:00 Pulse Rate 83 03/31/18 18:00 Respiratory Rate 18 03/31/18 18:00 Blood Pressure 148/74 03/31/18 18:00 O2 Sat by Pulse Oximetry (%) 95 03/31/18 09:00 Constitutional: Yes: No Distress Eyes: Yes: Conjunctiva Clear Cardiovascular: Yes: Regular Rate and Rhythm, S1, S2 Respiratory: Yes: CTA Bilaterally Gastrointestinal: Yes: Normal Bowel Sounds, Soft, Abdomen, Obese Edema: Yes Labs: CBC, BMP 03/31/18 05:30 03/31/18 05:30 Assessment/Plan Acute respiratory failure S/P extubation Decompensated CHF Acute exacerbation COPD R/O community acquired v. atypical pneumonia +RSV NSTEMI Toxic metabolic encephalopathy Elevated LFTs improved ? Cellulitis L LE Leukocytosis improved Empiric ceftriaxone/ zithromax Steroids/ bronchodilators RSV precautions
[2018-04-01] MEDS: INSULIN SLIDING SCALE (NOVOLOG) 1 VIAL SQ SCH ×4 (06:10→21:49)
[2018-04-01 07:06] LABS: BASO % 0.3 % (0-2.0); EOS % 2.8 % (0-4.5); HEMATOCRIT 43.5 % (32.4-45.2); HEMOGLOBIN 13.9 GM/dL (10.7-15.3); LYMPH % 9.9 % (8-40); MCH 26.8 pg (25.7-33.7); MEAN CELL VOLUME 83.7 fl (80-96); MEAN PLT VOLUME 10.2 fl (7.5-11.1); MONO % 8.4 % (3.8-10.2); NEUT % 78.6 % (42.8-82.8); PLATELET COUNT 195 K/MM3 (134-434); RDW 17.4 % (11.6-15.6); WHITE BLOOD COUNT 10.8 K/mm3 (4.0-10.0)
[2018-04-01 07:30] LABS: ANION GAP 4 MMOL/L (8-16); BLOOD UREA NITROGEN 17 mg/dL (7-18); CALCIUM 8.4 mg/dL (8.5-10.1); CHLORIDE 93 mmol/L (98-107); CO2 43 mmol/L (21-32); CREATININE 0.5 mg/dL (0.55-1.3); GLUCOSE,RANDOM 121 mg/dL (74-106); MAGNESIUM 1.9 mg/dL (1.8-2.4); SODIUM 140 mmol/L (136-145)
[2018-04-01] MEDS: ALBUTEROL SO4 2.5/IPRATROPIUM 0.5 INH SOL 3 ML VIAL.NEB. NEB SCH ×4 (07:40→20:33)
--- NOTE | 2018-04-01 08:32 | PN ---
Progress Note (short form) - Note Progress Note: Resting in NAD on NC O2 @ 4L. Some residual cough. No CP. No acute events overnight. Intake & Output 03/29/18 03/30/18 03/31/18 04/01/18 23:59 23:59 23:59 23:59 Intake Total 681 2087.5 1400 Output Total 3700 4700 2600 Balance -3019 -2612.5 -1200 Weight 306 lb 302 lb 4 oz 286 lb 3 oz 282 lb 6.4 oz Last Vital Signs Temp Pulse Resp BP Pulse Ox 97.9 F 87 18 127/75 95 04/01/18 04:00 04/01/18 04:00 04/01/18 04:00 04/01/18 04:00 03/31/18 21:00 Active Medications Albuterol Sulfate (Ventolin 0.083% Nebulizer Soln -) 1 amp NEB Q4H PRN PRN Reason: SHORT OF BREATH/WHEEZING Albuterol/Ipratropium (Duoneb -) 1 amp NEB RQID [facility] Last Admin: 03/31/18 20:35 Dose: 1 amp Aspirin (Asa -) 81 mg PO DAILY [facility] Chlorhexidine Gluconate (Hibiclens For Decolonization -) 1 applic TP HS [facility] Enoxaparin Sodium (Lovenox -) 40 mg SQ DAILY [facility] Furosemide (Lasix Injection -) 40 mg IVPUSH BID [facility] Last Admin: 03/31/18 21:50 Dose: 40 mg Azithromycin (Zithromax 500mg Ivpb (Pre-Docked)) 500 mg in 250 mls @ 250 mls/ hr IVPB DAILY [facility] Ceftriaxone Sodium 2 gm/ (Dextrose) 100 mls @ 200 mls/hr IVPB DAILY [facility]; Protocol Insulin Aspart (Novolog Vial Sliding Scale -) 1 vial SQ ACHS [facility]; Protocol Last Admin: 04/01/18 06:10 Dose: Not Given Mupirocin (Bactroban Ointment (For Decolonization) -) 1 applic NS BID [facility] Stop: 04/02/18 09:59 Last Admin: 03/31/18 23:57 Dose: Not Given Gen: NAD Heart: RRR Lung: scattered rhonchi, decreased breath sounds at the bases Abd: soft, obese, nontender Ext: less edema Laboratory Results - last 24 hr 03/28/18 03/28/18 03/28/18 05:42 11:49 16:41 WBC RBC Hgb Hct MCV MCH MCHC RDW Plt Count MPV Absolute Neuts (auto) Neutrophils % Lymphocytes % Monocytes % Eosinophils % Basophils % Nucleated RBC % PTT (Actin FS) Sodium Potassium Chloride Carbon Dioxide Anion Gap BUN Creatinine Creat Clearance w eGFR POC Glucometer 206.02121 210.28287 92.12050 Random Glucose Calcium Phosphorus Magnesium Triglycerides Cholesterol Total LDL Cholesterol HDL Cholesterol 03/28/18 03/29/18 03/29/18 22:52 05:27 12:02 WBC RBC Hgb Hct MCV MCH MCHC RDW Plt Count MPV Absolute Neuts (auto) Neutrophils % Lymphocytes % Monocytes % Eosinophils % Basophils % Nucleated RBC % PTT (Actin FS) Sodium Potassium Chloride Carbon Dioxide Anion Gap BUN Creatinine Creat Clearance w eGFR POC Glucometer 263.08039 271.70243 300.80500 Random Glucose Calcium Phosphorus Magnesium Triglycerides Cholesterol Total LDL Cholesterol HDL Cholesterol 03/29/18 03/29/18 03/30/18 16:18 22:24 11:48 WBC RBC Hgb Hct MCV MCH MCHC RDW Plt Count MPV Absolute Neuts (auto) Neutrophils % Lymphocytes % Monocytes % Eosinophils % Basophils % Nucleated RBC % PTT (Actin FS) Sodium Potassium Chloride Carbon Dioxide Anion Gap BUN Creatinine Creat Clearance w eGFR POC Glucometer 256.94218 231.95356 186.01860 Random Glucose Calcium Phosphorus Magnesium Triglycerides Cholesterol Total LDL Cholesterol HDL Cholesterol 03/30/18 03/30/18 03/31/18 17:11 21:55 05:30 WBC RBC Hgb Hct MCV MCH MCHC RDW Plt Count MPV Absolute Neuts (auto) Neutrophils % Lymphocytes % Monocytes % Eosinophils % Basophils % Nucleated RBC % PTT (Actin FS) Sodium 140 Potassium 4.2 Chloride 93 L Carbon Dioxide 41 H Anion Gap 6 L BUN 20 H Creatinine 0.6 Creat Clearance w eGFR > 60 POC Glucometer 282.69691 202.94075 Random Glucose 96 Calcium 8.6 Phosphorus 4.0 Magnesium 2.0 Triglycerides 124 Cholesterol 155 Total LDL Cholesterol 90 HDL Cholesterol 46 03/31/18 03/31/18 03/31/18 11:16 16:16 21:49 WBC RBC Hgb Hct MCV MCH MCHC RDW Plt Count MPV Absolute Neuts (auto) Neutrophils % Lymphocytes % Monocytes % Eosinophils % Basophils % Nucleated RBC % PTT (Actin FS) Sodium Potassium Chloride Carbon Dioxide Anion Gap BUN Creatinine Creat Clearance w eGFR POC Glucometer 92.77457 72.03819 132 Random Glucose Calcium Phosphorus Magnesium Triglycerides Cholesterol Total LDL Cholesterol HDL Cholesterol 04/01/18 04/01/18 04/01/18 05:28 06:00 06:00 WBC 10.8 H RBC 5.20 Hgb 13.9 Hct 43.5 MCV 83.7 MCH 26.8 MCHC 32.0 RDW 17.4 H Plt Count 195 MPV 10.2 Absolute Neuts (auto) 8.5 H Neutrophils % 78.6 Lymphocytes % 9.9 Monocytes % 8.4 Eosinophils % 2.8 D Basophils % 0.3 Nucleated RBC % 0 PTT (Actin FS) 28.7 Sodium Potassium Chloride Carbon Dioxide Anion Gap BUN Creatinine Creat Clearance w eGFR POC Glucometer 127 Random Glucose Calcium Phosphorus Magnesium Triglycerides Cholesterol Total LDL Cholesterol HDL Cholesterol 04/01/18 06:00 WBC RBC Hgb Hct MCV MCH MCHC RDW Plt Count MPV Absolute Neuts (auto) Neutrophils % Lymphocytes % Monocytes % Eosinophils % Basophils % Nucleated RBC % PTT (Actin FS) Sodium 140 Potassium 4.0 Chloride 93 L Carbon Dioxide 43 H Anion Gap 4 L BUN 17 Creatinine 0.5 L Creat Clearance w eGFR > 60 POC Glucometer Random Glucose 121 H Calcium 8.4 L Phosphorus 4.0 Magnesium 1.9 Triglycerides Cholesterol Total LDL Cholesterol HDL Cholesterol ASSESSMENT AND PLAN: Acute on likely Chronic Hypoxic and Hypercapneic Respiratory Failure due to CAP Acute on Chronic Diastolic Heart Failure +Troponins/Acute NSTEMI COPD Morbid Obesity LEONIDES/OHS HTN DM Hyperlipidemia UTI RSV - O2 to maintain saturation 88% to 92% - Lasix - keep net negative - ABX per ID - inhaled bronchodilators - PO as tolerated - DVT/GI prophylaxis - Will need formal sleep re-evaluation after D/C Dr Paige
[2018-04-01] MEDS ORDERED: DEXTROSE 5%-WATER 100 ML IVPB ONE (09:20)
[2018-04-01] MEDS: FUROSEMIDE 40 MG/4 ML INJECTABLE VIAL IVPUSH SCH ×2 (09:25→21:48)
[2018-04-01] MEDS: ASPIRIN 81 MG CHEWABLE TABLETS PO SCH (09:25)
[2018-04-01] MEDS: ENOXAPARIN NA (PORCINE) 40 MG/0.4 ML DISP.SYRIN SQ SCH (09:26)
[2018-04-01] MEDS: CEFTRIAXONE 2 GM in DEXTROSE 5%-WATER 100 ML IVPB SCH (09:32)
[2018-04-01] MEDS: MUPIROCIN 2% TOPICAL OINTMENT FOR DECOLONIZATION NS SCH ×2 (10:02→21:47)
[2018-04-01] MEDS: AZITHROMYCIN IVPB 500 MG/250 ML BAG IVPB SCH (10:16)
[2018-04-01 14:21] VITALS: BMI 48.4
--- NOTE | 2018-04-01 16:54 | PN ---
Progress Note, Physician History of Present Illness: OOB in chair Offers no complaints Afebrile WBC improved BC (-) Sputum normal janie - Current Medication List Current Medications: Active Medications Albuterol Sulfate (Ventolin 0.083% Nebulizer Soln -) 1 amp NEB Q4H PRN PRN Reason: SHORT OF BREATH/WHEEZING Albuterol/Ipratropium (Duoneb -) 1 amp NEB RQID [facility] Last Admin: 04/01/18 11:50 Dose: 1 amp Aspirin (Asa -) 81 mg PO DAILY [facility] Last Admin: 04/01/18 09:25 Dose: 81 mg Chlorhexidine Gluconate (Hibiclens For Decolonization -) 1 applic TP HS [facility] Enoxaparin Sodium (Lovenox -) 40 mg SQ DAILY [facility] Last Admin: 04/01/18 09:26 Dose: 40 mg Furosemide (Lasix Injection -) 40 mg IVPUSH BID [facility] Last Admin: 04/01/18 09:25 Dose: 40 mg Azithromycin (Zithromax 500mg Ivpb (Pre-Docked)) 500 mg in 250 mls @ 250 mls/ hr IVPB DAILY [facility] Last Admin: 04/01/18 10:16 Dose: 250 mls/hr Ceftriaxone Sodium 2 gm/ (Dextrose) 100 mls @ 200 mls/hr IVPB DAILY [facility]; Protocol Last Admin: 04/01/18 09:32 Dose: 200 mls/hr Insulin Aspart (Novolog Vial Sliding Scale -) 1 vial SQ ACHS [facility]; Protocol Last Admin: 04/01/18 12:32 Dose: 2 units Mupirocin (Bactroban Ointment (For Decolonization) -) 1 applic NS BID [facility] Stop: 04/02/18 09:59 Last Admin: 04/01/18 10:02 Dose: Not Given - Objective Vital Signs: Vital Signs Temperature 97.9 F 04/01/18 16:15 Pulse Rate 88 04/01/18 16:15 Respiratory Rate 18 04/01/18 16:15 Blood Pressure 130/64 04/01/18 16:15 O2 Sat by Pulse Oximetry (%) 95 04/01/18 09:00 Constitutional: Yes: No Distress Eyes: Yes: Conjunctiva Clear Cardiovascular: Yes: Regular Rate and Rhythm, S1, S2 Respiratory: Yes: Other (+ bilateral rhonchi/ wheeze) Gastrointestinal: Yes: Normal Bowel Sounds, Soft, Abdomen, Obese. No: Tenderness Edema: LLE: 2+, RLE: 2+ Labs: CBC, BMP 04/01/18 06:00 04/01/18 06:00 Assessment/Plan Acute respiratory failure S/P extubation Decompensated CHF Acute exacerbation COPD R/O community acquired v. atypical pneumonia +RSV NSTEMI Toxic metabolic encephalopathy Elevated LFTs improved ? Cellulitis L LE Leukocytosis improved Empiric ceftriaxone/ zithromax Steroids/ bronchodilators RSV precautions
--- NOTE | 2018-04-01 18:01 | PN ---
Physical Exam: SUBJECTIVE: Patient seen and examined at bedside today. She is resting comfortably in exam bed saturating well with 4L nasal canula. She endorses diminishing cough and shortness of breath. Denies subjective fevers, chills, chest pain, palpitations, abdominal pain, nausea, vomiting. OBJECTIVE: Vital Signs Period Temp Pulse Resp BP Sys/Garner Pulse Ox Last 24 Hr 97.9 F-98.3 F 80-88 17-20 123-150/58-84 95-95 GENERAL: Awake, alert. No acute distress. HEAD: Normocephalic, atraumatic EYES: Pupils equal, round and reactive to light. Extraocular movements intact B/ L. No conjunctival injection B/L. NECK: Supple without lymphadenopathy LUNGS: Good inspiratory effort, improving air entry B/L. Rhonchi, and expiratory wheezes auscultated B/L. HEART: Regular rate and rhythm, + S1 and S2 auscultated. ABDOMEN: Obese. Soft. normoactive bowel sounds, no guarding, no rebound, no masses. No hepatomegaly appreciated. EXTREMITIES: 2+ radial pulses b/l, 1+ dorsalis pedis pulses b/l. Chronic venous stasis changes b/l lower extremities. 1+ pitting edema improving B/L. NEUROLOGICAL: Good muscle tone B/L upper and lower extremities. Moving all 4 extremities spontaneously with strength 4/5 b/l upper and lower extremities. No gross focal deficits. Laboratory Results - last 24 hr 03/28/18 03/28/18 03/28/18 05:42 11:49 16:41 WBC RBC Hgb Hct MCV MCH MCHC RDW Plt Count MPV Absolute Neuts (auto) Neutrophils % Lymphocytes % Monocytes % Eosinophils % Basophils % Nucleated RBC % PTT (Actin FS) Sodium Potassium Chloride Carbon Dioxide Anion Gap BUN Creatinine Creat Clearance w eGFR POC Glucometer 206.22172 210.53231 92.45610 Random Glucose Calcium Phosphorus Magnesium 03/28/18 03/29/18 03/29/18 22:52 05:27 12:02 WBC RBC Hgb Hct MCV MCH MCHC RDW Plt Count MPV Absolute Neuts (auto) Neutrophils % Lymphocytes % Monocytes % Eosinophils % Basophils % Nucleated RBC % PTT (Actin FS) Sodium Potassium Chloride Carbon Dioxide Anion Gap BUN Creatinine Creat Clearance w eGFR POC Glucometer [phone] 300.91371 Random Glucose Calcium Phosphorus Magnesium 03/29/18 03/29/18 03/30/18 16:18 22:24 11:48 WBC RBC Hgb Hct MCV MCH MCHC RDW Plt Count MPV Absolute Neuts (auto) Neutrophils % Lymphocytes % Monocytes % Eosinophils % Basophils % Nucleated RBC % PTT (Actin FS) Sodium Potassium Chloride Carbon Dioxide Anion Gap BUN Creatinine Creat Clearance w eGFR POC Glucometer 256.87593 231.48904 186.64191 Random Glucose Calcium Phosphorus Magnesium 03/30/18 03/30/18 03/31/18 17:11 21:55 11:16 WBC RBC Hgb Hct MCV MCH MCHC RDW Plt Count MPV Absolute Neuts (auto) Neutrophils % Lymphocytes % Monocytes % Eosinophils % Basophils % Nucleated RBC % PTT (Actin FS) Sodium Potassium Chloride Carbon Dioxide Anion Gap BUN Creatinine Creat Clearance w eGFR POC Glucometer 282.88510 202.45786 [phone] Random Glucose Calcium Phosphorus Magnesium 03/31/18 03/31/18 04/01/18 16:16 21:49 05:28 WBC RBC Hgb Hct MCV MCH MCHC RDW Plt Count MPV Absolute Neuts (auto) Neutrophils % Lymphocytes % Monocytes % Eosinophils % Basophils % Nucleated RBC % PTT (Actin FS) Sodium Potassium Chloride Carbon Dioxide Anion Gap BUN Creatinine Creat Clearance w eGFR POC Glucometer [phone] 127 Random Glucose Calcium Phosphorus Magnesium 04/01/18 04/01/18 04/01/18 06:00 06:00 06:00 WBC 10.8 H RBC 5.20 Hgb 13.9 Hct 43.5 MCV 83.7 MCH 26.8 MCHC 32.0 RDW 17.4 H Plt Count 195 MPV 10.2 Absolute Neuts (auto) 8.5 H Neutrophils % 78.6 Lymphocytes % 9.9 Monocytes % 8.4 Eosinophils % 2.8 D Basophils % 0.3 Nucleated RBC % 0 PTT (Actin FS) 28.7 Sodium 140 Potassium 4.0 Chloride 93 L Carbon Dioxide 43 H Anion Gap 4 L BUN 17 Creatinine 0.5 L Creat Clearance w eGFR > 60 POC Glucometer Random Glucose 121 H Calcium 8.4 L Phosphorus 4.0 Magnesium 1.9 04/01/18 04/01/18 12:25 17:34 WBC RBC Hgb Hct MCV MCH MCHC RDW Plt Count MPV Absolute Neuts (auto) Neutrophils % Lymphocytes % Monocytes % Eosinophils % Basophils % Nucleated RBC % PTT (Actin FS) Sodium Potassium Chloride Carbon Dioxide Anion Gap BUN Creatinine Creat Clearance w eGFR POC Glucometer 161 124 Random Glucose Calcium Phosphorus Magnesium Active Medications Generic Name Dose Route Start Last Admin Trade Name Freq PRN Reason Stop Dose Admin Albuterol Sulfate 1 amp 03/31/18 11:29 Ventolin 0.083% Nebulizer Soln - NEB Q4H PRN SHORT OF BREATH/WHEEZING Albuterol/Ipratropium 1 amp 03/31/18 12:00 04/01/18 11:50 Duoneb - NEB 1 amp RQID DONTA Administration Aspirin 81 mg 04/01/18 10:00 04/01/18 09:25 Asa - PO 81 mg DAILY DON[facility] Administration Chlorhexidine Gluconate 1 applic 03/31/18 22:00 Hibiclens For Decolonization - TP HS DONTA Enoxaparin Sodium 40 mg 04/01/18 10:00 04/01/18 09:26 Lovenox - SQ 40 mg DAILY [facility] Administration Furosemide 40 mg 03/31/18 22:00 04/01/18 09:25 Lasix Injection - IVPUSH 40 mg BID DONTA Administration Azithromycin 500 mg in 250 mls @ 250 mls/hr 04/01/18 10:00 04/01/18 10:16 Zithromax 500mg Ivpb (Pre-Docked) IVPB 250 mls/hr DAILY [facility] Administration Ceftriaxone Sodium 2 gm/ 100 mls @ 200 mls/hr 04/01/18 10:00 04/01/18 09:32 Dextrose IVPB 200 mls/hr DAILY [facility] Administration Protocol Insulin Aspart 1 vial 03/31/18 16:30 04/01/18 17:37 Novolog Vial Sliding Scale - SQ Not Given ACHS [facility] Protocol Mupirocin 1 applic 03/31/18 22:00 04/01/18 10:02 Bactroban Ointment (For Decolonization) - NS 04/02/18 09:59 Not Given BID DON[facility] IMAGING -Cardiac ECHO shows LV normal in size EF 60-65%. Mild impaired LV relaxation. ASSESSMENT/PLAN: Patient is a 67 year old female with history of morbid obesity, COPD, LEONIDES ( poorly compliant with home CPAP), diabetes mellitus, hypertension, hyperlipidemia, presents with complaint of shortness of breath worsening over the past two weeks. Acute hypoxic hypercapnic respiratory failure -Likely due to CHF exacerbation secondary to poor home medication compliance vs. community acquired pneumonia -Patient is saturating well on venturi- mask. -Duonebs QID, Albuterol nebulizer Q4H PRN -Symbicort 160/ 4.5 2 puffs BID -Lasix 40mg IV BID -Solu-Medrol discontinued. -Ceftriaxone 2grams IV daily (day 5) -Azithromycin 500 mg IV daily (day 5) -Urine negative for legionella antigens -RSV positive, influenza swab negative. -Blood cultures preliminary negative at 96 hours -ID consult (Dr. Ayala) appreciated. -Pulmonology consult (Dr. Paige, Dr. Sanches) appreciated. Maintain O2 saturation between 88 - 92% Troponinemia -0.79 -> 1.12 -> 0.79. Likely secondary to demand ischemia. -EKG shows sinus rhythm at 89 BPM, nonspecfic T wave abnormality. No ischemic changes noted. -Heparin drip discontinued after 48 hours. -Cardiology consult (Dr. Jay) appreciated. UTI -Urine culture grows E. coli -Patient is receiving ceftriaxone 2 grams IV daily. Diabetes mellitus -Insulin sliding scale ACHS -Fingerstick blood glucose ACHS Hypertension -Currently holding home antihypertensives. -Follow vital signs FEN -No IV fluids -Follow CMP -Soft diabetic, sodium restricted diet Prophylaxis -Lovenox 40mg subq daily -Protonix 40mg IV daily Disposition -Continue care in main [facility]-surgical floor. Visit type - Emergency Visit Emergency Visit: Yes ED Registration Date: 03/28/18 Care time: The patient presented to the Emergency Department on the above date and was hospitalized for further evaluation of their emergent condition. - New Patient This patient is new to me today: No - Critical Care Critical Care patient: No - Discharge Referral Referred to [facility] Med P.C.: No
--- NOTE | 2018-04-01 18:19 | PN ---
Teaching Attending Note Name of Resident: Xu Vargas ATTENDING PHYSICIAN STATEMENT I saw and evaluated the patient. I reviewed the resident's note and discussed the case with the resident. I agree with the resident's findings and plan as documented. SUBJECTIVE: Patient has no complaints. OBJECTIVE: Vital Signs Period Temp Pulse Resp BP Sys/Garner Pulse Ox Last 24 Hr 97.9 F-98.3 F 80-88 17-20 123-150/58-84 95-95 HEART: S1S2, RRR LUNGS: Scattered rhonchi ABDOMEN: Obese, soft ,non-tender, non-distended, normal BS EXTREMITIES: 1+ edema, chronic changes Laboratory Results - last 24 hr 03/31/18 04/01/18 04/01/18 21:49 05:28 06:00 WBC RBC Hgb Hct MCV MCH MCHC RDW Plt Count MPV Absolute Neuts (auto) Neutrophils % Lymphocytes % Monocytes % Eosinophils % Basophils % Nucleated RBC % PTT (Actin FS) 28.7 Sodium Potassium Chloride Carbon Dioxide Anion Gap BUN Creatinine Creat Clearance w eGFR POC Glucometer 132 127 Random Glucose Calcium Phosphorus Magnesium 04/01/18 04/01/18 04/01/18 06:00 06:00 12:25 WBC 10.8 H RBC 5.20 Hgb 13.9 Hct 43.5 MCV 83.7 MCH 26.8 MCHC 32.0 RDW 17.4 H Plt Count 195 MPV 10.2 Absolute Neuts (auto) 8.5 H Neutrophils % 78.6 Lymphocytes % 9.9 Monocytes % 8.4 Eosinophils % 2.8 D Basophils % 0.3 Nucleated RBC % 0 PTT (Actin FS) Sodium 140 Potassium 4.0 Chloride 93 L Carbon Dioxide 43 H Anion Gap 4 L BUN 17 Creatinine 0.5 L Creat Clearance w eGFR > 60 POC Glucometer 161 Random Glucose 121 H Calcium 8.4 L Phosphorus 4.0 Magnesium 1.9 04/01/18 17:34 WBC RBC Hgb Hct MCV MCH MCHC RDW Plt Count MPV Absolute Neuts (auto) Neutrophils % Lymphocytes % Monocytes % Eosinophils % Basophils % Nucleated RBC % PTT (Actin FS) Sodium Potassium Chloride Carbon Dioxide Anion Gap BUN Creatinine Creat Clearance w eGFR POC Glucometer 124 Random Glucose Calcium Phosphorus Magnesium Current Medications Generic Name Dose Route Start Last Admin Trade Name Freq PRN Reason Stop Dose Admin Albuterol Sulfate 1 amp 03/31/18 11:29 Ventolin 0.083% Nebulizer Soln - NEB Q4H PRN SHORT OF BREATH/WHEEZING Albuterol/Ipratropium 1 amp 03/31/18 12:00 04/01/18 11:50 Duoneb - NEB 1 amp RQID [facility] Administration Aspirin 81 mg 04/01/18 10:00 04/01/18 09:25 Asa - PO 81 mg DAILY DONTA Administration Chlorhexidine Gluconate 1 applic 03/31/18 22:00 Hibiclens For Decolonization - TP HS [facility] Enoxaparin Sodium 40 mg 04/01/18 10:00 04/01/18 09:26 Lovenox - SQ 40 mg DAILY DON[facility] Administration Furosemide 40 mg 03/31/18 22:00 04/01/18 09:25 Lasix Injection - IVPUSH 40 mg BID [facility] Administration Azithromycin 500 mg in 250 mls @ 250 mls/hr 04/01/18 10:00 04/01/18 10:16 Zithromax 500mg Ivpb (Pre-Docked) IVPB 250 mls/hr DAILY [facility] Administration Ceftriaxone Sodium 2 gm/ 100 mls @ 200 mls/hr 04/01/18 10:00 04/01/18 09:32 Dextrose IVPB 200 mls/hr DAILY [facility] Administration Protocol Insulin Aspart 1 vial 03/31/18 16:30 04/01/18 17:37 Novolog Vial Sliding Scale - SQ Not Given ACHS [facility] Protocol Mupirocin 1 applic 03/31/18 22:00 04/01/18 10:02 Bactroban Ointment (For Decolonization) - NS 04/02/18 09:59 Not Given BID [facility] ASSESSMENT AND PLAN: This is a 67 year old woman with a history of morbid obesity, COPD, LEONIDES, type 2 DM, HTN, hyperlipidemia who presented to the ED with worsening SOB. 1. Acute on chronic hypoxic and hypercapnic respiratory failure secondary to acute exacerbation of COPD, acute on chronic diastolic heart failure, LEONIDES, OHS - Extubated 03/30 - Continue oxygen to maintain saturation >90% - Continue ceftriaxone, Zithromax, Lasix IV, DuoNeb, albuterol as needed 2. Acute NSTEMI - Echo shows normal LV, normal LVEF, no wall motion abnormalities, impaired relaxation, mild PI - Continue aspirin - Add Lipitor - Further evaluation once stable 3. E. coli UTI - Continue ceftriaxone 4. Morbid obesity 5. Type 2 DM - Continue Novolog sliding scale 6. HTN - Continue Lasix 7. Hyperlipidemia - Start Lipitor
[2018-04-01] MEDS: CHLORHEXIDINE GLUCONATE 4% CLEANSER FOR DECOLONIZATION TP SCH (21:46)
[2018-04-02] MEDS ORDERED: guaiFENesin 200 MG/10 ML 10 ML UNIT-DOSE CUPS PO ONE (01:36)
[2018-04-02] MEDS: INSULIN SLIDING SCALE (NOVOLOG) 1 VIAL SQ SCH ×4 (06:05→20:59)
[2018-04-02] MEDS: CHLORHEXIDINE GLUCONATE 4% CLEANSER FOR DECOLONIZATION TP SCH (07:23)
[2018-04-02] MEDS: ALBUTEROL SO4 2.5/IPRATROPIUM 0.5 INH SOL 3 ML VIAL.NEB. NEB SCH ×4 (07:35→20:04)
[2018-04-02 07:53] LABS: HEMATOCRIT 48.9 % (32.4-45.2); MCH 25.9 pg (25.7-33.7); MCHC 30.7 g/dl (32.0-36.0); MEAN CELL VOLUME 84.3 fl (80-96); MEAN PLT VOLUME 9.5 fl (7.5-11.1); PLATELET COUNT 195 K/MM3 (134-434); RDW 17.3 % (11.6-15.6)
[2018-04-02 08:16] LABS: ALBUMIN 2.9 g/dl (3.4-5.0); ALK PHOS 87 U/L (45-117); ANION GAP 8 MMOL/L (8-16); BILIRUBIN,TOTAL 1.2 mg/dL (0.2-1); BLOOD UREA NITROGEN 20 mg/dL (7-18); CHLORIDE 89 mmol/L (98-107); CO2 41 mmol/L (21-32); CREATININE 0.7 mg/dL (0.55-1.3); GLUCOSE,RANDOM 148 mg/dL (74-106); MAGNESIUM 1.6 mg/dL (1.8-2.4); PHOSPHOROUS 3.3 mg/dL (2.5-4.9); POTASSIUM 4.1 mmol/L (3.5-5.1); SGOT/AST 45 U/L (15-37); SGPT/ALT 62 U/L (13-61); SODIUM 137 mmol/L (136-145); TOT PROT 8.3 g/dl (6.4-8.2)
[2018-04-02] MEDS ORDERED: MAGNESIUM OXIDE 400 MG TABLET (FP) PO ONE (09:30)
[2018-04-02] MEDS ORDERED: DEXTROSE 5%-WATER 100 ML IVPB ONE (09:43)
[2018-04-02] MEDS: ASPIRIN 81 MG CHEWABLE TABLETS PO SCH (09:51)
[2018-04-02] MEDS: FUROSEMIDE 40 MG/4 ML INJECTABLE VIAL IVPUSH SCH (09:51)
[2018-04-02] MEDS: CEFTRIAXONE 2 GM in DEXTROSE 5%-WATER 100 ML IVPB SCH (09:52)
[2018-04-02] MEDS: ENOXAPARIN NA (PORCINE) 40 MG/0.4 ML DISP.SYRIN SQ SCH (09:52)
[2018-04-02] MEDS: AZITHROMYCIN IVPB 500 MG/250 ML BAG IVPB SCH (10:56)
--- NOTE | 2018-04-02 13:01 | PN ---
Teaching Attending Note Name of Resident: Xu Vargas ATTENDING PHYSICIAN STATEMENT I saw and evaluated the patient. I reviewed the resident's note and discussed the case with the resident. I agree with the resident's findings and plan as documented. SUBJECTIVE: Patient has no complaints. OBJECTIVE: Vital Signs Period Temp Pulse Resp BP Sys/Garner Pulse Ox Last 24 Hr 97.9 F-98.2 F 86-101 18-22 130-146/64-75 93-95 HEART: S1S2, RRR LUNGS: Few rhonchi ABDOMEN: Obese, soft ,non-tender, non-distended, normal BS EXTREMITIES: Trace edema, chronic changes Laboratory Results - last 24 hr 04/01/18 04/01/18 04/02/18 17:34 21:49 06:02 WBC RBC Hgb Hct MCV MCH MCHC RDW Plt Count MPV PTT (Actin FS) Sodium Potassium Chloride Carbon Dioxide Anion Gap BUN Creatinine Creat Clearance w eGFR POC Glucometer 124 191 134 Random Glucose Calcium Phosphorus Magnesium Total Bilirubin AST ALT Alkaline Phosphatase Total Protein Albumin 04/02/18 04/02/18 04/02/18 07:00 07:00 07:00 WBC 13.0 H RBC 5.80 H Hgb 15.0 Hct 48.9 H MCV 84.3 MCH 25.9 MCHC 30.7 L RDW 17.3 H Plt Count 195 MPV 9.5 PTT (Actin FS) 28.3 Sodium 137 Potassium 4.1 Chloride 89 L Carbon Dioxide 41 H Anion Gap 8 BUN 20 H Creatinine 0.7 Creat Clearance w eGFR > 60 POC Glucometer Random Glucose 148 H Calcium 9.0 Phosphorus 3.3 Magnesium 1.6 L Total Bilirubin 1.2 H AST 45 H ALT 62 H Alkaline Phosphatase 87 Total Protein 8.3 H Albumin 2.9 L 04/02/18 11:56 WBC RBC Hgb Hct MCV MCH MCHC RDW Plt Count MPV PTT (Actin FS) Sodium Potassium Chloride Carbon Dioxide Anion Gap BUN Creatinine Creat Clearance w eGFR POC Glucometer 153 Random Glucose Calcium Phosphorus Magnesium Total Bilirubin AST ALT Alkaline Phosphatase Total Protein Albumin Current Medications Generic Name Dose Route Start Last Admin Trade Name Freq PRN Reason Stop Dose Admin Albuterol Sulfate 1 amp 03/31/18 11:29 Ventolin 0.083% Nebulizer Soln - NEB Q4H PRN SHORT OF BREATH/WHEEZING Albuterol/Ipratropium 1 amp 03/31/18 12:00 04/02/18 07:35 Duoneb - NEB 1 amp RQID DONTA Administration Aspirin 81 mg 04/01/18 10:00 04/02/18 09:51 Asa - PO 81 mg DAILY DONTA Administration Enoxaparin Sodium 40 mg 04/01/18 10:00 04/02/18 09:52 Lovenox - SQ 40 mg DAILY DONTA Administration Furosemide 40 mg 04/02/18 14:00 Lasix - PO BID@0600,1400 DONTA Azithromycin 500 mg in 250 mls @ 250 mls/hr 04/01/18 10:00 04/02/18 10:56 Zithromax 500mg Ivpb (Pre-Docked) IVPB 250 mls/hr DAILY [facility] Administration Ceftriaxone Sodium 2 gm/ 100 mls @ 200 mls/hr 04/01/18 10:00 04/02/18 09:52 Dextrose IVPB 200 mls/hr DAILY DON[facility] Administration Protocol Insulin Aspart 1 vial 03/31/18 16:30 04/02/18 11:59 Novolog Vial Sliding Scale - SQ 2 units ACHS DON[facility] Administration Protocol ASSESSMENT AND PLAN: This is a 67 year old woman with a history of morbid obesity, COPD, LEONIDES, type 2 DM, HTN, hyperlipidemia who presented to the ED with worsening SOB. 1. Acute on chronic hypoxic and hypercapnic respiratory failure secondary to acute exacerbation of COPD, acute on chronic diastolic heart failure, LEONIDES, OHS - Extubated 03/30 - Continue oxygen to maintain saturation >90% - Lasix changed to PO - Continue ceftriaxone, Zithromax, DuoNeb, albuterol as needed 2. Acute NSTEMI - Echo shows normal LV, normal LVEF, no wall motion abnormalities, impaired relaxation, mild PI - Continue aspirin - Add Lipitor - Further evaluation once stable 3. E. coli UTI - Continue ceftriaxone 4. Morbid obesity 5. Type 2 DM - Continue Novolog sliding scale 6. HTN - Continue Lasix 7. Hyperlipidemia - Start Lipitor 8. Disposition - Continue PT - Expect patient will need short term rehab at discharge
--- NOTE | 2018-04-02 13:05 | PN ---
Progress Note, Physician History of Present Illness: PULMONARY ALERT,SITTING UP IN BED,-RESP DISTRESS - Current Medication List Current Medications: Active Medications Albuterol Sulfate (Ventolin 0.083% Nebulizer Soln -) 1 amp NEB Q4H PRN PRN Reason: SHORT OF BREATH/WHEEZING Albuterol/Ipratropium (Duoneb -) 1 amp NEB RQID [facility] Last Admin: 04/02/18 07:35 Dose: 1 amp Aspirin (Asa -) 81 mg PO DAILY [facility] Last Admin: 04/02/18 09:51 Dose: 81 mg Enoxaparin Sodium (Lovenox -) 40 mg SQ DAILY [facility] Last Admin: 04/02/18 09:52 Dose: 40 mg Furosemide (Lasix -) 40 mg PO BID@0600,1400 [facility] Azithromycin (Zithromax 500mg Ivpb (Pre-Docked)) 500 mg in 250 mls @ 250 mls/ hr IVPB DAILY [facility] Last Admin: 04/02/18 10:56 Dose: 250 mls/hr Ceftriaxone Sodium 2 gm/ (Dextrose) 100 mls @ 200 mls/hr IVPB DAILY [facility]; Protocol Last Admin: 04/02/18 09:52 Dose: 200 mls/hr Insulin Aspart (Novolog Vial Sliding Scale -) 1 vial SQ ACHS [facility]; Protocol Last Admin: 04/02/18 11:59 Dose: 2 units - Objective Vital Signs: Vital Signs Temperature 98.1 F 04/02/18 10:00 Pulse Rate 101 H 04/02/18 10:00 Respiratory Rate 22 H 04/02/18 10:00 Blood Pressure 146/75 04/02/18 10:00 O2 Sat by Pulse Oximetry (%) 93 L 04/02/18 09:00 Constitutional: Yes: Calm, Obese Eyes: Yes: WNL HENT: Yes: WNL Neck: Yes: WNL Cardiovascular: Yes: Regular Rate and Rhythm, S1, S2 Respiratory: Yes: Diminished, Rhonchi (few scattered gayle rhonchi) Gastrointestinal: Yes: Normal Bowel Sounds, Soft Extremities: Yes: WNL Edema: Yes Labs: CBC, BMP 04/02/18 07:00 04/02/18 07:00 - ....Imaging Chest X-ray: Report Reviewed, Image Reviewed Problem List - Problems (1) CHF exacerbation Code(s): I50.9 - HEART FAILURE, UNSPECIFIED Qualifiers: Heart failure type: unspecified Qualified Code(s): I50.9 - Heart failure, unspecified (2) COPD exacerbation Code(s): J44.1 - CHRONIC OBSTRUCTIVE PULMONARY DISEASE W (ACUTE) EXACERBATION (3) NSTEMI (non-ST elevated myocardial infarction) Code(s): I21.4 - NON-ST ELEVATION (NSTEMI) MYOCARDIAL INFARCTION (4) Respiratory failure Code(s): J96.90 - RESPIRATORY FAILURE, UNSP, UNSP W HYPOXIA OR HYPERCAPNIA Qualifiers: Chronicity: unspecified Respiratory failure complication: hypoxia and hypercapnia Qualified Code(s): J96.91 - Respiratory failure, unspecified with hypoxia; J96.92 - Respiratory failure, unspecified with hypercapnia (5) Pneumonia Code(s): J18.9 - PNEUMONIA, UNSPECIFIED ORGANISM (6) CHF (congestive heart failure) Code(s): I50.9 - HEART FAILURE, UNSPECIFIED (7) Acute on chronic respiratory failure with hypoxia and hypercapnia Code(s): J96.21 - ACUTE AND CHRONIC RESPIRATORY FAILURE WITH HYPOXIA; J96.22 - ACUTE AND CHRONIC RESPIRATORY FAILURE WITH HYPERCAPNIA Assessment/Plan ASSESSMENT AND PLAN: Acute on likely Chronic Hypoxic and Hypercapneic Respiratory Failure secondary to pneumonia Acute on Chronic Diastolic Heart Failure +Troponins/Acute NSTEMI COPD Morbid Obesity LEONIDES/OHS HTN DM Hyperlipidemia UTI - lasix - abx - monitor urine output, creatinine - daily weights - O2 - inhaled bronchodilators - DVT/GI prophylaxis DR GUERRERO
[2018-04-02] MEDS: FUROSEMIDE 40 MG TABLET (FP) PO SCH (13:44)
--- NOTE | 2018-04-02 16:16 | PN ---
Progress Note, Physician History of Present Illness: OOB in chair Offers no complaints Afebrile WBC slightly elevated 13K BC (-) Sputum normal janie - Current Medication List Current Medications: Active Medications Albuterol Sulfate (Ventolin 0.083% Nebulizer Soln -) 1 amp NEB Q4H PRN PRN Reason: SHORT OF BREATH/WHEEZING Albuterol/Ipratropium (Duoneb -) 1 amp NEB RQID [facility] Last Admin: 04/02/18 11:25 Dose: 1 amp Aspirin (Asa -) 81 mg PO DAILY [facility] Last Admin: 04/02/18 09:51 Dose: 81 mg Enoxaparin Sodium (Lovenox -) 40 mg SQ DAILY [facility] Last Admin: 04/02/18 09:52 Dose: 40 mg Furosemide (Lasix -) 40 mg PO BID@0600,1400 [facility] Last Admin: 04/02/18 13:44 Dose: 40 mg Azithromycin (Zithromax 500mg Ivpb (Pre-Docked)) 500 mg in 250 mls @ 250 mls/ hr IVPB DAILY [facility] Last Admin: 04/02/18 10:56 Dose: 250 mls/hr Ceftriaxone Sodium 2 gm/ (Dextrose) 100 mls @ 200 mls/hr IVPB DAILY [facility]; Protocol Last Admin: 04/02/18 09:52 Dose: 200 mls/hr Insulin Aspart (Novolog Vial Sliding Scale -) 1 vial SQ ACHS [facility]; Protocol Last Admin: 04/02/18 11:59 Dose: 2 units - Objective Vital Signs: Vital Signs Temperature 98.4 F 04/02/18 14:07 Pulse Rate 96 H 04/02/18 14:07 Respiratory Rate 21 H 04/02/18 14:07 Blood Pressure 140/71 04/02/18 14:07 O2 Sat by Pulse Oximetry (%) 93 L 04/02/18 09:00 Constitutional: Yes: No Distress Eyes: Yes: Conjunctiva Clear Cardiovascular: Yes: Regular Rate and Rhythm, S1, S2 Respiratory: Yes: Rhonchi, Wheezes, Other (crepitations at bases) Gastrointestinal: Yes: Normal Bowel Sounds, Abdomen, Obese. No: Tenderness Edema: Yes Labs: CBC, BMP 04/02/18 07:00 04/02/18 07:00 Assessment/Plan Acute respiratory failure S/P extubation Decompensated CHF Acute exacerbation COPD R/O community acquired v. atypical pneumonia +RSV NSTEMI Toxic metabolic encephalopathy Elevated LFTs improved ? Cellulitis L LE Leukocytosis Day #6 IV antibiotics Substitute ceftin 500mg po bid x 7d
--- NOTE | 2018-04-02 17:59 | PN ---
Physical Exam: SUBJECTIVE: Patient seen and examined at bedside today. She is resting comfortably in exam bed saturating well with 2L nasal canula. She endorses significant improvement of her shortness of breath. Denies subjective fevers, chills, chest pain, palpitations, abdominal pain, nausea, vomiting. OBJECTIVE: Vital Signs Period Temp Pulse Resp BP Sys/Garner Pulse Ox Last 24 Hr 98.1 F-98.4 F 86-101 20-22 135-146/71-75 93-95 GENERAL: Awake, alert. No acute distress. HEAD: Normocephalic, atraumatic EYES: Pupils equal, round and reactive to light. Extraocular movements intact B/ L. No conjunctival injection B/L. NECK: Supple without lymphadenopathy LUNGS: Good inspiratory effort, improving air entry B/L. Faint rhonchi auscultated B/L. HEART: Regular rate and rhythm, + S1 and S2 auscultated. ABDOMEN: Obese. Soft. normoactive bowel sounds, no guarding, no rebound, no masses. No hepatomegaly appreciated. EXTREMITIES: 2+ radial pulses b/l, 1+ dorsalis pedis pulses b/l. Chronic venous stasis changes b/l lower extremities. 1+ pitting edema improving B/L. NEUROLOGICAL: Good muscle tone B/L upper and lower extremities. Moving all 4 extremities spontaneously with strength 4/5 b/l upper and lower extremities. No gross focal deficits. Laboratory Results - last 24 hr 04/01/18 04/02/18 04/02/18 21:49 06:02 07:00 WBC 13.0 H RBC 5.80 H Hgb 15.0 Hct 48.9 H MCV 84.3 MCH 25.9 MCHC 30.7 L RDW 17.3 H Plt Count 195 MPV 9.5 PTT (Actin FS) Sodium Potassium Chloride Carbon Dioxide Anion Gap BUN Creatinine Creat Clearance w eGFR POC Glucometer 191 134 Random Glucose Calcium Phosphorus Magnesium Total Bilirubin AST ALT Alkaline Phosphatase Total Protein Albumin 04/02/18 04/02/18 04/02/18 07:00 07:00 11:56 WBC RBC Hgb Hct MCV MCH MCHC RDW Plt Count MPV PTT (Actin FS) 28.3 Sodium 137 Potassium 4.1 Chloride 89 L Carbon Dioxide 41 H Anion Gap 8 BUN 20 H Creatinine 0.7 Creat Clearance w eGFR > 60 POC Glucometer 153 Random Glucose 148 H Calcium 9.0 Phosphorus 3.3 Magnesium 1.6 L Total Bilirubin 1.2 H AST 45 H ALT 62 H Alkaline Phosphatase 87 Total Protein 8.3 H Albumin 2.9 L Active Medications Generic Name Dose Route Start Last Admin Trade Name Freq PRN Reason Stop Dose Admin Albuterol Sulfate 1 amp 03/31/18 11:29 Ventolin 0.083% Nebulizer Soln - NEB Q4H PRN SHORT OF BREATH/WHEEZING Albuterol/Ipratropium 1 amp 03/31/18 12:00 04/02/18 15:45 Duoneb - NEB 1 amp RQID DONTA Administration Aspirin 81 mg 04/01/18 10:00 04/02/18 09:51 Asa - PO 81 mg DAILY DONTA Administration Cefuroxime Axetil 500 mg 04/02/18 22:00 Ceftin - PO BID DONTA Enoxaparin Sodium 40 mg 04/01/18 10:00 04/02/18 09:52 Lovenox - SQ 40 mg DAILY DONTA Administration Furosemide 40 mg 04/02/18 14:00 04/02/18 13:44 Lasix - PO 40 mg BID@0600,1400 DONTA Administration Insulin Aspart 1 vial 03/31/18 16:30 04/02/18 17:46 Novolog Vial Sliding Scale - SQ Not Given ACHS [facility] Protocol IMAGING -Cardiac ECHO shows LV normal in size EF 60-65%. Mild impaired LV relaxation. ASSESSMENT/PLAN: Patient is a 67 year old female with history of morbid obesity, COPD, LEONIDES ( poorly compliant with home CPAP), diabetes mellitus, hypertension, hyperlipidemia, presents with complaint of shortness of breath worsening over the past two weeks. Acute hypoxic hypercapnic respiratory failure -Likely due to CHF exacerbation secondary to poor home medication compliance vs. community acquired pneumonia -Patient is saturating well on venturi- mask. -Duonebs QID, Albuterol nebulizer Q4H PRN -Symbicort 160/ 4.5 2 puffs BID -Lasix 40mg PO BID -Ceftriaxone, Azithromycin switched to Cefuroxime 500mg PO BID. -Urine negative for legionella antigens -RSV positive, influenza swab negative. -Blood cultures negative for growth -Sputum cultures grow normal respiratory janie -ID consult (Dr. Ayala) appreciated. -Pulmonology consult (Dr. Paige, Dr. Sanches) appreciated. Maintain O2 saturation between 88 - 92% Troponinemia -0.79 -> 1.12 -> 0.79. Likely secondary to demand ischemia. -EKG shows sinus rhythm at 89 BPM, nonspecfic T wave abnormality. No ischemic changes noted. -Heparin drip discontinued after 48 hours. -Cardiology consult (Dr. Jay) appreciated. UTI -Urine culture grows E. coli -Patient is receiving ceftriaxone 2 grams IV daily. Diabetes mellitus -Insulin sliding scale ACHS -Fingerstick blood glucose ACHS Hypertension -Currently holding home antihypertensives. -Follow vital signs FEN -No IV fluids -Follow CMP -Soft diabetic, sodium restricted diet Prophylaxis -Lovenox 40mg subq daily -Protonix 40mg IV daily Disposition -Continue care in medial-surgical floor. Patient will require SNF placement as she walked 25 feet with physical therapy. Visit type - Emergency Visit Emergency Visit: Yes ED Registration Date: 03/28/18 Care time: The patient presented to the Emergency Department on the above date and was hospitalized for further evaluation of their emergent condition. - New Patient This patient is new to me today: No - Critical Care Critical Care patient: No - Discharge Referral Referred to [facility] No
[2018-04-02] MEDS ORDERED: INSULIN (NOVOLOG) ASPART 100 UNITS/ML 10ML VIAL ONE (20:40)
[2018-04-02] MEDS: CEFUROXIME AXETIL 500 MG TABLET PO SCH (20:59)
[2018-04-03] MEDS: INSULIN SLIDING SCALE (NOVOLOG) 1 VIAL SQ SCH ×4 (06:28→21:18)
[2018-04-03] MEDS: FUROSEMIDE 40 MG TABLET (FP) PO SCH ×2 (06:28→14:10)
[2018-04-03] MEDS: ALBUTEROL SO4 2.5/IPRATROPIUM 0.5 INH SOL 3 ML VIAL.NEB. NEB SCH ×4 (07:10→21:35)
[2018-04-03 07:39] LABS: HEMATOCRIT 47.5 % (32.4-45.2); HEMOGLOBIN 14.4 GM/dL (10.7-15.3); MCH 25.6 pg (25.7-33.7); MCHC 30.3 g/dl (32.0-36.0); MEAN CELL VOLUME 84.4 fl (80-96); MEAN PLT VOLUME 9.6 fl (7.5-11.1); PLATELET COUNT 205 K/MM3 (134-434); RBC 5.62 M/mm3 (3.60-5.2); WHITE BLOOD COUNT 13.5 K/mm3 (4.0-10.0)
[2018-04-03 08:11] LABS: ALBUMIN 2.7 g/dl (3.4-5.0); ALK PHOS 73 U/L (45-117); ANION GAP 3 MMOL/L (8-16); BILIRUBIN,TOTAL 0.8 mg/dL (0.2-1); BLOOD UREA NITROGEN 17 mg/dL (7-18); CHLORIDE 95 mmol/L (98-107); CO2 42 mmol/L (21-32); CREATININE 0.6 mg/dL (0.55-1.3); GLUCOSE,RANDOM 138 mg/dL (74-106); PHOSPHOROUS 3.9 mg/dL (2.5-4.9); POTASSIUM 3.8 mmol/L (3.5-5.1); SGOT/AST 31 U/L (15-37); SGPT/ALT 48 U/L (13-61); SODIUM 139 mmol/L (136-145)
--- NOTE | 2018-04-03 08:54 | PN ---
Progress Note, Physician Chief Complaint: On nasal O2; alert; no chest pain. History of Present Illness: The patient is a 67-year-old female with a past medical history of asthma, CHF, COPD, HTN, DM, and HLD presenting with shortness of breath and bilateral pitting edema for the past 2 days. Patient is on 20 of Lasix PO daily, but admits to being noncompliant with her meds. Patient also admits to not following up with her PCP. Patient denies chest pain, palpitations, dizziness, headache, vision changes, numbness/weakness/tingling in her extremities, N/V/D, or urinary symptoms. Allergies: NKDA Surgeries: None reported Social Hx: No reported alcohol, drug or cigarette use. - Current Medication List Current Medications: Active Medications Albuterol Sulfate (Ventolin 0.083% Nebulizer Soln -) 1 amp NEB Q4H PRN PRN Reason: SHORT OF BREATH/WHEEZING Albuterol/Ipratropium (Duoneb -) 1 amp NEB RQID [facility] Last Admin: 04/03/18 07:10 Dose: 1 amp Aspirin (Asa -) 81 mg PO DAILY [facility] Last Admin: 04/02/18 09:51 Dose: 81 mg Atorvastatin Calcium (Lipitor -) 80 mg PO HS [facility] Cefuroxime Axetil (Ceftin -) 500 mg PO BID [facility] Last Admin: 04/02/18 20:59 Dose: 500 mg Enoxaparin Sodium (Lovenox -) 40 mg SQ DAILY [facility] Last Admin: 04/02/18 09:52 Dose: 40 mg Furosemide (Lasix -) 40 mg PO BID@0600,1400 [facility] Last Admin: 04/03/18 06:28 Dose: 40 mg Insulin Aspart (Novolog Vial Sliding Scale -) [address] [facility]; Protocol Last Admin: 04/03/18 06:28 Dose: Not Given - Objective Vital Signs: Vital Signs Temperature 97.9 F 04/03/18 06:42 Pulse Rate 100 H 04/03/18 06:42 Respiratory Rate 20 04/03/18 06:42 Blood Pressure 100/38 L 04/03/18 06:42 O2 Sat by Pulse Oximetry (%) 96 04/02/18 20:50 Constitutional: Yes: Calm, Obese Eyes: Yes: WNL HENT: Yes: WNL Neck: Yes: WNL Cardiovascular: Yes: S1, S2, S4 Respiratory: Yes: Diminished Gastrointestinal: Yes: Soft, Abdomen, Obese ...Rectal Exam: Yes: Deferred Genitourinary: No: Anuria Breast(s): Yes: WNL Musculoskeletal: Yes: Joint Stiffness, Muscle Weakness Extremities: Yes: Cool Edema: Yes Edema: LLE: Trace, RLE: Trace Peripheral Pulses WNL: Yes Integumentary: Yes: WNL Neurological: Yes: WNL Psychiatric: Yes: Alert, Oriented Labs: CBC, BMP 04/03/18 06:30 04/03/18 06:30 - ....Imaging Chest X-ray: Image Reviewed Problem List - Problems (1) NSTEMI (non-ST elevated myocardial infarction) Assessment/Plan: TNI trendied down to 0.6 ECHO: normal LVEF; abnormal diastoic compliance. For coronary artery evaluation (stress MIBI) when stable. Started atorvastatin 80 mg daily. On ASA 81 mg daily. Code(s): I21.4 - NON-ST ELEVATION (NSTEMI) MYOCARDIAL INFARCTION (2) COPD exacerbation Code(s): J44.1 - CHRONIC OBSTRUCTIVE PULMONARY DISEASE W (ACUTE) EXACERBATION (3) Diastolic CHF Assessment/Plan: On furosemide bid; may be decreased now. F/u electrolytes, BUN/Cr, Is and Os, daily weight. Code(s): I50.30 - UNSPECIFIED DIASTOLIC (CONGESTIVE) HEART FAILURE (4) Respiratory failure Assessment/Plan: Extubated past 48 hours. Continue bronchodilators, steroids per processing mgr. Code(s): J96.90 - RESPIRATORY FAILURE, UNSP, UNSP W HYPOXIA OR HYPERCAPNIA Qualifiers: Chronicity: unspecified Respiratory failure complication: hypoxia and hypercapnia Qualified Code(s): J96.91 - Respiratory failure, unspecified with hypoxia; J96.92 - Respiratory failure, unspecified with hypercapnia
--- NOTE | 2018-04-03 09:07 | PN ---
Progress Note, Physician Chief Complaint: On nasal O2; OOB in chair; alert; no chest pain. History of Present Illness: The patient is a 67-year-old female with a past medical history of asthma, diastolic CHF, COPD, HTN, DM, and HLD, presenting with shortness of breath and bilateral pitting edema for the past 2 days. Patient is on 20 of Lasix PO daily , but admits to being noncompliant with her meds. Patient also admits to not following up with her PCP. Patient denies chest pain, palpitations, dizziness, headache, vision changes, numbness/weakness/tingling in her extremities, N/V/D, or urinary symptoms. Allergies: NKDA Surgeries: None reported Social Hx: No reported alcohol, drug or cigarette use. - Current Medication List Current Medications: Active Medications Albuterol Sulfate (Ventolin 0.083% Nebulizer Soln -) 1 amp NEB Q4H PRN PRN Reason: SHORT OF BREATH/WHEEZING Albuterol/Ipratropium (Duoneb -) 1 amp NEB RQID [facility] Last Admin: 04/03/18 07:10 Dose: 1 amp Aspirin (Asa -) 81 mg PO DAILY [facility] Last Admin: 04/02/18 09:51 Dose: 81 mg Atorvastatin Calcium (Lipitor -) 80 mg PO HS [facility] Cefuroxime Axetil (Ceftin -) 500 mg PO BID [facility] Last Admin: 04/02/18 20:59 Dose: 500 mg Enoxaparin Sodium (Lovenox -) 40 mg SQ DAILY [facility] Last Admin: 04/02/18 09:52 Dose: 40 mg Furosemide (Lasix -) 40 mg PO BID@0600,1400 [facility] Last Admin: 04/03/18 06:28 Dose: 40 mg Insulin Aspart (Novolog Vial Sliding Scale -) 1 vial SQ [facility]; Protocol Last Admin: 04/03/18 06:28 Dose: Not Given - Objective Vital Signs: Vital Signs Temperature 97.9 F 04/03/18 06:42 Pulse Rate 100 H 04/03/18 06:42 Respiratory Rate 20 04/03/18 06:42 Blood Pressure 100/38 L 04/03/18 06:42 O2 Sat by Pulse Oximetry (%) 96 04/02/18 20:50 Constitutional: Yes: Calm Eyes: Yes: WNL HENT: Yes: WNL Neck: Yes: WNL Cardiovascular: Yes: Tachycardia, S1, S2, S4 Respiratory: Yes: Diminished Gastrointestinal: Yes: Soft, Abdomen, Obese ...Rectal Exam: Yes: Deferred Genitourinary: No: Anuria Breast(s): Yes: WNL Musculoskeletal: Yes: Joint Stiffness, Muscle Weakness Extremities: Yes: Cool Edema: No Peripheral Pulses WNL: Yes Integumentary: Yes: Erythema (mild (LLE)) Neurological: Yes: Alert, Oriented, Weakness Psychiatric: Yes: Alert, Oriented Labs: CBC, BMP 04/03/18 06:30 04/03/18 06:30 - ....Imaging Chest X-ray: Image Reviewed (? small Rt basal pleural effusion) Problem List - Problems (1) NSTEMI (non-ST elevated myocardial infarction) Assessment/Plan: TNI trendied down to 0.6 ECHO: normal LVEF; abnormal diastoic compliance. For coronary artery evaluation (stress MIBI) when stable. Started atorvastatin 80 mg daily. On ASA 81 mg daily. Code(s): I21.4 - NON-ST ELEVATION (NSTEMI) MYOCARDIAL INFARCTION (2) COPD exacerbation Code(s): J44.1 - CHRONIC OBSTRUCTIVE PULMONARY DISEASE W (ACUTE) EXACERBATION (3) Diastolic CHF Assessment/Plan: No JVD; ?small pleural effusion right base on CXR. On furosemide bid; may be decreased now. F/u electrolytes, BUN/Cr, Is and Os, daily weight. Electrolytes: Keep Mg 2-2.4; K 4-4.5; PO4 2.5-4.9. Code(s): I50.30 - UNSPECIFIED DIASTOLIC (CONGESTIVE) HEART FAILURE (4) Respiratory failure Assessment/Plan: Continue bronchodilators, steroids per loan and credit manager. Code(s): J96.90 - RESPIRATORY FAILURE, UNSP, UNSP W HYPOXIA OR HYPERCAPNIA Qualifiers: Chronicity: unspecified Respiratory failure complication: hypoxia and hypercapnia Qualified Code(s): J96.91 - Respiratory failure, unspecified with hypoxia; J96.92 - Respiratory failure, unspecified with hypercapnia (5) RSV (acute bronchiolitis due to respiratory syncytial virus) Assessment/Plan: Finishing course of Ceftin for presumed bacerial infection. On precautions for RSV. Code(s): J21.0 - ACUTE BRONCHIOLITIS DUE TO RESPIRATORY SYNCYTIAL VIRUS (6) Diabetes Assessment/Plan: On Novolog. F/u HGBA1c. Code(s): E11.9 - TYPE 2 DIABETES MELLITUS WITHOUT COMPLICATIONS
[2018-04-03] MEDS ORDERED: PT OWN MED DRAWER 7, Y5N ONE (09:13)
[2018-04-03] MEDS: ENOXAPARIN NA (PORCINE) 40 MG/0.4 ML DISP.SYRIN SQ SCH (09:35)
[2018-04-03] MEDS: ASPIRIN 81 MG CHEWABLE TABLETS PO SCH (09:35)
[2018-04-03] MEDS: CEFUROXIME AXETIL 500 MG TABLET PO SCH ×2 (09:35→21:16)
--- NOTE | 2018-04-03 09:36 | PN ---
Progress Note (short form) - Note Progress Note: she is comfortable only complaint she has is mild dry cough no chest pains no distress she is sitting in her bed vitals Vital Signs Period Temp Pulse Resp BP Sys/Garner Pulse Ox Last 24 Hr 97.9 F-98.4 F 92-101 20-22 100-146/38-98 96 Heent nad neck supple, no jvd lungs gayle coarse bs , good a/e heart normal bs ext trace edema and chronic skin changes no ulcerations neuro non focal skin normal turger labs CBC, BMP 04/03/18 06:30 04/03/18 06:30 Home Medication List Medication Instructions Recorded Confirmed Type Albuterol Sulfate Inhaler - 2 inh PO Q4H PRN 03/27/18 03/27/18 History [Ventolin Hfa Inhaler -] Atorvastatin Ca [Lipitor] 20 mg PO HS 03/27/18 03/27/18 History Fluticasone/Salmeterol [Advair 1 each IH BID 03/27/18 03/27/18 History 250-50 Diskus] Furosemide [Lasix] 20 mg PO DAILY 03/27/18 03/27/18 History Insulin Glargine,Hum.rec.anlog 20 unit SQ DAILY 03/27/18 03/27/18 History [Basaglar Kwikpen U-100] Losartan Potassium 25 mg PO DAILY 03/27/18 03/27/18 History metFORMIN HCL [Metformin HCl] 500 mg PO HS 03/27/18 03/27/18 History Active Medications Generic Name Dose Route Start Last Admin Trade Name Freq PRN Reason Stop Dose Admin Albuterol Sulfate 1 amp 03/31/18 11:29 Ventolin 0.083% Nebulizer Soln - NEB Q4H PRN SHORT OF BREATH/WHEEZING Albuterol/Ipratropium 1 amp 03/31/18 12:00 04/03/18 07:10 Duoneb - NEB 1 amp RQID DONTA Administration Aspirin 81 mg 04/01/18 10:00 04/02/18 09:51 Asa - PO 81 mg DAILY DONTA Administration Atorvastatin Calcium 80 mg 04/03/18 22:00 Lipitor - PO HS [facility] Cefuroxime Axetil 500 mg 04/02/18 22:00 04/02/18 20:59 Ceftin - PO 500 mg BID DONTA Administration Enoxaparin Sodium 40 mg 04/01/18 10:00 04/02/18 09:52 Lovenox - SQ 40 mg DAILY DONTA Administration Furosemide 40 mg 04/02/18 14:00 04/03/18 06:28 Lasix - PO 40 mg BID@0600,1400 DONTA Administration Insulin Aspart 1 vial 03/31/18 16:30 04/03/18 06:28 Novolog Vial Sliding Scale - SQ Not Given ACHS [facility] Protocol ASSESSMENT AND PLAN: This is a 67 year old woman with a history of morbid obesity, COPD, LEONIDES, type 2 DM, HTN, hyperlipidemia who presented to the ED with worsening SOB. 1. Acute on chronic hypoxic and hypercapnic respiratory failure secondary to acute exacerbation of COPD, acute on chronic diastolic heart failure, LEONIDES, OHS - Lasix PO - Continue ceftriaxone, DuoNeb, albuterol as needed 2. Acute NSTEMI - Echo shows normal LV, normal LVEF, no wall motion abnormalities, impaired relaxation, mild PI - Continue aspirin - Add Lipitor 3. E. coli UTI - Continue ceftriaxone 4. Morbid obesity - discussed life style changes 5. Type 2 DM - Continue Novolog sliding scale 6. HTN - Continue Lasix 7. Hyperlipidemia - Start Lipitor 8-High wbc count - She has no fever and it is the same count as before except gone up to 13.5 from 13. she has no fever and on abx at this time will keep an on it 8. Disposition - Continue PT - Expect patient will need short term rehab at discharge
--- NOTE | 2018-04-03 09:44 | PN ---
Progress Note, Physician History of Present Illness: 67 year old female with PMHx CHF, COPD on home O2, LEONIDES on CPAP, IDDM, morbid obesity, HTN, HLD, non-compliance with diuretics presented with shortness of breath, increase lower extremity swelling found to have acute respiratory distress requiring intubation for airway protection admitted to ICU for heart failure/COPD exacerbation. Cardiology consulted for further management. Labs remarkable for BNP 10,000s, tropnon 1.1. Currently hemodynamically stable - on ASA, heparin gtt and IV lasix. - Current Medication List Current Medications: Active Medications Albuterol Sulfate (Ventolin 0.083% Nebulizer Soln -) 1 amp NEB Q4H PRN PRN Reason: SHORT OF BREATH/WHEEZING Albuterol/Ipratropium (Duoneb -) 1 amp NEB RQID [facility] Last Admin: 04/03/18 07:10 Dose: 1 amp Aspirin (Asa -) 81 mg PO DAILY [facility] Last Admin: 04/03/18 09:35 Dose: 81 mg Atorvastatin Calcium (Lipitor -) 80 mg PO HS [facility] Cefuroxime Axetil (Ceftin -) 500 mg PO BID [facility] Last Admin: 04/03/18 09:35 Dose: 500 mg Enoxaparin Sodium (Lovenox -) 40 mg SQ DAILY [facility] Last Admin: 04/03/18 09:35 Dose: 40 mg Furosemide (Lasix -) 40 mg PO BID@0600,1400 [facility] Last Admin: 04/03/18 06:28 Dose: 40 mg Insulin Aspart (Novolog Vial Sliding Scale -) 1 vial SQ [facility]; Protocol Last Admin: 04/03/18 06:28 Dose: Not Given - Objective Vital Signs: Vital Signs Temperature 97.9 F 04/03/18 06:42 Pulse Rate 100 H 04/03/18 06:42 Respiratory Rate 20 04/03/18 06:42 Blood Pressure 100/38 L 04/03/18 06:42 O2 Sat by Pulse Oximetry (%) 96 04/02/18 20:50 Eyes: Yes: WNL, Conjunctiva Clear, EOM Intact HENT: Yes: WNL, Atraumatic, Normocephalic Neck: Yes: WNL, Supple, Trachea Midline Cardiovascular: Yes: WNL, Regular Rate and Rhythm Respiratory: Yes: WNL, Regular, CTA Bilaterally Gastrointestinal: Yes: WNL, Normal Bowel Sounds Genitourinary: Yes: WNL Musculoskeletal: Yes: WNL Extremities: Yes: WNL Edema: No Integumentary: Yes: WNL Neurological: Yes: WNL, Alert, Oriented ...Motor Strength: WNL Psychiatric: Yes: WNL Labs: CBC, BMP 04/03/18 06:30 04/03/18 06:30 Assessment/Plan - Problems (1) NSTEMI (non-ST elevated myocardial infarction) Assessment/Plan: TNI trendied down to 0.6 ECHO: normal LVEF; abnormal diastoic compliance. For coronary artery evaluation (stress MIBI) when stable. Started atorvastatin 80 mg daily. On ASA 81 mg daily. Code(s): I21.4 - NON-ST ELEVATION (NSTEMI) MYOCARDIAL INFARCTION (2) COPD exacerbation Code(s): J44.1 - CHRONIC OBSTRUCTIVE PULMONARY DISEASE W (ACUTE) EXACERBATION (3) Diastolic CHF Assessment/Plan: No JVD; ?small pleural effusion right base on CXR. On furosemide bid; may be decreased now. F/u electrolytes, BUN/Cr, Is and Os, daily weight. Electrolytes: Keep Mg 2-2.4; K 4-4.5; PO4 2.5-4.9. Code(s): I50.30 - UNSPECIFIED DIASTOLIC (CONGESTIVE) HEART FAILURE (4) Respiratory failure Assessment/Plan: Continue bronchodilators, steroids per guard chief. Code(s): J96.90 - RESPIRATORY FAILURE, UNSP, UNSP W HYPOXIA OR HYPERCAPNIA Qualifiers: Chronicity: unspecified Respiratory failure complication: hypoxia and hypercapnia Qualified Code(s): J96.91 - Respiratory failure, unspecified with hypoxia; J96.92 - Respiratory failure, unspecified with hypercapnia (5) RSV (acute bronchiolitis due to respiratory syncytial virus) Assessment/Plan: Finishing course of Ceftin for presumed bacerial infection. On precautions for RSV. Code(s): J21.0 - ACUTE BRONCHIOLITIS DUE TO RESPIRATORY SYNCYTIAL VIRUS (6) Diabetes Assessment/Plan: On Novolog. F/u HGBA1c. Code(s): E11.9 - TYPE 2 DIABETES MELLITUS WITHOUT COMPLICATIONS
--- NOTE | 2018-04-03 15:13 | PN ---
Progress Note, Physician History of Present Illness: pulmonary alert,feeling better,oob-chair,-sob,-cp,less cough - Current Medication List Current Medications: Active Medications Albuterol Sulfate (Ventolin 0.083% Nebulizer Soln -) 1 amp NEB Q4H PRN PRN Reason: SHORT OF BREATH/WHEEZING Albuterol/Ipratropium (Duoneb -) 1 amp NEB RQID [facility] Last Admin: 04/03/18 11:30 Dose: 1 amp Aspirin (Asa -) 81 mg PO DAILY [facility] Last Admin: 04/03/18 09:35 Dose: 81 mg Atorvastatin Calcium (Lipitor -) 80 mg PO HS [facility] Cefuroxime Axetil (Ceftin -) 500 mg PO BID [facility] Last Admin: 04/03/18 09:35 Dose: 500 mg Enoxaparin Sodium (Lovenox -) 40 mg SQ DAILY [facility] Last Admin: 04/03/18 09:35 Dose: 40 mg Furosemide (Lasix -) 40 mg PO BID@0600,1400 [facility] Last Admin: 04/03/18 14:10 Dose: 40 mg Insulin Aspart (Novolog Vial Sliding Scale -) 1 vial SQ [facility]; Protocol Last Admin: 04/03/18 12:03 Dose: 2 units - Objective Vital Signs: Vital Signs Temperature 97.6 F 04/03/18 14:35 Pulse Rate 99 H 04/03/18 14:35 Respiratory Rate 21 H 04/03/18 14:35 Blood Pressure 138/79 04/03/18 14:35 O2 Sat by Pulse Oximetry (%) 96 04/03/18 09:00 Constitutional: Yes: Calm, Obese Eyes: Yes: WNL HENT: Yes: WNL Neck: Yes: WNL Cardiovascular: Yes: Regular Rate and Rhythm, S1, S2 Respiratory: Yes: Rhonchi (few rhonchi) Gastrointestinal: Yes: Normal Bowel Sounds, Soft Extremities: Yes: WNL Edema: Yes Labs: CBC, BMP 04/03/18 06:30 04/03/18 06:30 Problem List - Problems (1) CHF exacerbation Code(s): I50.9 - HEART FAILURE, UNSPECIFIED Qualifiers: Heart failure type: unspecified Qualified Code(s): I50.9 - Heart failure, unspecified (2) COPD exacerbation Code(s): J44.1 - CHRONIC OBSTRUCTIVE PULMONARY DISEASE W (ACUTE) EXACERBATION (3) NSTEMI (non-ST elevated myocardial infarction) Code(s): I21.4 - NON-ST ELEVATION (NSTEMI) MYOCARDIAL INFARCTION (4) Respiratory failure Code(s): J96.90 - RESPIRATORY FAILURE, UNSP, UNSP W HYPOXIA OR HYPERCAPNIA Qualifiers: Chronicity: unspecified Respiratory failure complication: hypoxia and hypercapnia Qualified Code(s): J96.91 - Respiratory failure, unspecified with hypoxia; J96.92 - Respiratory failure, unspecified with hypercapnia (5) Pneumonia Code(s): J18.9 - PNEUMONIA, UNSPECIFIED ORGANISM (6) CHF (congestive heart failure) Code(s): I50.9 - HEART FAILURE, UNSPECIFIED (7) Acute on chronic respiratory failure with hypoxia and hypercapnia Code(s): J96.21 - ACUTE AND CHRONIC RESPIRATORY FAILURE WITH HYPOXIA; J96.22 - ACUTE AND CHRONIC RESPIRATORY FAILURE WITH HYPERCAPNIA Assessment/Plan ASSESSMENT AND PLAN: Acute on likely Chronic Hypoxic and Hypercapneic Respiratory Failure secondary to pneumonia improving Acute on Chronic Diastolic Heart Failure +Troponins/Acute NSTEMI COPD Morbid Obesity LEONIDES/OHS HTN DM Hyperlipidemia UTI - lasix - monitor urine output, creatinine - daily weights - O2 - inhaled bronchodilators - DVT/GI prophylaxis DR GUERRERO
[2018-04-03] MEDS: ATORVASTATIN CA 80 MG TABLET (FP) PO SCH (21:16)
[2018-04-04] MEDS: FUROSEMIDE 40 MG TABLET (FP) PO SCH ×2 (05:43→14:45)
[2018-04-04] MEDS: INSULIN SLIDING SCALE (NOVOLOG) 1 VIAL SQ SCH ×4 (06:05→21:41)
[2018-04-04] MEDS: ALBUTEROL SO4 2.5/IPRATROPIUM 0.5 INH SOL 3 ML VIAL.NEB. NEB SCH ×4 (07:15→20:28)
--- NOTE | 2018-04-04 09:23 | PN ---
Progress Note, Physician History of Present Illness: 67 year old female with PMHx CHF, COPD on home O2, LEONIDES on CPAP, IDDM, morbid obesity, HTN, HLD, non-compliance with diuretics presented with shortness of breath, increase lower extremity swelling found to have acute respiratory distress requiring intubation for airway protection admitted to ICU for heart failure/COPD exacerbation. Cardiology consulted for further management. Labs remarkable for BNP 10,000s, tropnon 1.1. Currently hemodynamically stable - on ASA, heparin gtt and IV lasix. - Current Medication List Current Medications: Active Medications Albuterol Sulfate (Ventolin 0.083% Nebulizer Soln -) 1 amp NEB Q4H PRN PRN Reason: SHORT OF BREATH/WHEEZING Albuterol/Ipratropium (Duoneb -) 1 amp NEB RQID [facility] Last Admin: 04/04/18 07:15 Dose: 1 amp Aspirin (Asa -) 81 mg PO DAILY [facility] Last Admin: 04/03/18 09:35 Dose: 81 mg Atorvastatin Calcium (Lipitor -) 80 mg PO HS [facility] Last Admin: 04/03/18 21:16 Dose: 80 mg Cefuroxime Axetil (Ceftin -) 500 mg PO BID [facility] Last Admin: 04/03/18 21:16 Dose: 500 mg Enoxaparin Sodium (Lovenox -) 40 mg SQ DAILY [facility] Last Admin: 04/03/18 09:35 Dose: 40 mg Furosemide (Lasix -) 40 mg PO BID@0600,1400 [facility] Last Admin: 04/04/18 05:43 Dose: 40 mg Insulin Aspart (Novolog Vial Sliding Scale -) 1 vial SQ ACHS [facility]; Protocol Last Admin: 04/04/18 06:05 Dose: 4 units - Objective Vital Signs: Vital Signs Temperature 98.5 F 04/04/18 06:00 Pulse Rate 101 H 04/04/18 06:00 Respiratory Rate 20 04/04/18 06:00 Blood Pressure 108/48 L 04/04/18 06:00 O2 Sat by Pulse Oximetry (%) 96 04/03/18 21:00 Eyes: Yes: WNL, Conjunctiva Clear, EOM Intact HENT: Yes: WNL, Atraumatic, Normocephalic Neck: Yes: WNL, Supple, Trachea Midline Cardiovascular: Yes: WNL, Regular Rate and Rhythm Respiratory: Yes: WNL, Regular, CTA Bilaterally Gastrointestinal: Yes: WNL, Normal Bowel Sounds Genitourinary: Yes: WNL Musculoskeletal: Yes: WNL Extremities: Yes: WNL Edema: No Integumentary: Yes: WNL Neurological: Yes: WNL, Alert, Oriented ...Motor Strength: WNL Psychiatric: Yes: WNL Labs: CBC, BMP 04/03/18 06:30 04/03/18 06:30 Assessment/Plan - Problems (1) NSTEMI (non-ST elevated myocardial infarction) Assessment/Plan: TNI trendied down to 0.6 ECHO: normal LVEF; abnormal diastoic compliance. For coronary artery evaluation (stress MIBI) when stable. Started atorvastatin 80 mg daily. On ASA 81 mg daily. Code(s): I21.4 - NON-ST ELEVATION (NSTEMI) MYOCARDIAL INFARCTION (2) COPD exacerbation Code(s): J44.1 - CHRONIC OBSTRUCTIVE PULMONARY DISEASE W (ACUTE) EXACERBATION (3) Diastolic CHF Assessment/Plan: No JVD; ?small pleural effusion right base on CXR. On furosemide bid; may be decreased now. F/u electrolytes, BUN/Cr, Is and Os, daily weight. Electrolytes: Keep Mg 2-2.4; K 4-4.5; PO4 2.5-4.9. Code(s): I50.30 - UNSPECIFIED DIASTOLIC (CONGESTIVE) HEART FAILURE (4) Respiratory failure Assessment/Plan: Continue bronchodilators, steroids per loans consultant. Code(s): J96.90 - RESPIRATORY FAILURE, UNSP, UNSP W HYPOXIA OR HYPERCAPNIA Qualifiers: Chronicity: unspecified Respiratory failure complication: hypoxia and hypercapnia Qualified Code(s): J96.91 - Respiratory failure, unspecified with hypoxia; J96.92 - Respiratory failure, unspecified with hypercapnia (5) RSV (acute bronchiolitis due to respiratory syncytial virus) Assessment/Plan: Finishing course of Ceftin for presumed bacerial infection. On precautions for RSV. Code(s): J21.0 - ACUTE BRONCHIOLITIS DUE TO RESPIRATORY SYNCYTIAL VIRUS (6) Diabetes Assessment/Plan: On Novolog. F/u HGBA1c. Code(s): E11.9 - TYPE 2 DIABETES MELLITUS WITHOUT COMPLICATIONS
[2018-04-04] MEDS: ENOXAPARIN NA (PORCINE) 40 MG/0.4 ML DISP.SYRIN SQ SCH (10:21)
[2018-04-04] MEDS: ASPIRIN 81 MG CHEWABLE TABLETS PO SCH (10:21)
[2018-04-04] MEDS ORDERED: PT OWN MED DRAWER 7, Y5N ONE (10:23)
[2018-04-04] MEDS: CEFUROXIME AXETIL 500 MG TABLET PO SCH ×2 (10:23→21:39)
--- NOTE | 2018-04-04 12:34 | PN ---
Physical Exam: SUBJECTIVE: Patient seen and examined at bedside today. She is resting comfortably in exam bed saturating well with 2L nasal canula. Patient does not endorse any new complaints this morning. She denies subjective fevers, chills, chest pain, palpitations, abdominal pain, nausea, vomiting. OBJECTIVE: Vital Signs Period Temp Pulse Resp BP Sys/Garner Pulse Ox Last 24 Hr 97.6 F-98.5 F 99-101 20-22 108-157/48-79 96 GENERAL: Awake, alert. No acute distress. HEAD: Normocephalic, atraumatic EYES: Pupils equal, round and reactive to light. Extraocular movements intact B/ L. No conjunctival injection B/L. NECK: Supple without lymphadenopathy LUNGS: Good inspiratory effort, improving air entry B/L. Faint rhonchi auscultated B/L. HEART: Regular rate and rhythm, + S1 and S2 auscultated. ABDOMEN: Obese. Soft. normoactive bowel sounds, no guarding, no rebound, no masses. No hepatomegaly appreciated. EXTREMITIES: 2+ radial pulses b/l, 1+ dorsalis pedis pulses b/l. Chronic venous stasis changes b/l lower extremities. 1+ pitting edema improving B/L. NEUROLOGICAL: Good muscle tone B/L upper and lower extremities. Moving all 4 extremities spontaneously with strength 4/5 b/l upper and lower extremities. No gross focal deficits. Laboratory Results - last 24 hr 04/03/18 04/03/18 04/03/18 09:30 17:32 21:17 POC Glucometer 186 218 Hemoglobin A1c % 8.2 H 04/04/18 05:44 POC Glucometer 159 Hemoglobin A1c % Active Medications Generic Name Dose Route Start Last Admin Trade Name Freq PRN Reason Stop Dose Admin Albuterol Sulfate 1 amp 03/31/18 11:29 Ventolin 0.083% Nebulizer Soln - NEB Q4H PRN SHORT OF BREATH/WHEEZING Albuterol/Ipratropium 1 amp 03/31/18 12:00 04/04/18 11:42 Duoneb - NEB 1 amp RQID DONTA Administration Aspirin 81 mg 04/01/18 10:00 04/04/18 10:21 Asa - PO 81 mg DAILY DONTA Administration Atorvastatin Calcium 80 mg 04/03/18 22:00 04/03/18 21:16 Lipitor - PO 80 mg HS DONTA Administration Cefuroxime Axetil 500 mg 04/02/18 22:00 04/04/18 10:23 Ceftin - PO 500 mg BID DONTA Administration Enoxaparin Sodium 40 mg 04/01/18 10:00 04/04/18 10:21 Lovenox - SQ 40 mg DAILY DONTA Administration Furosemide 40 mg 04/02/18 14:00 04/04/18 05:43 Lasix - PO 40 mg BID@0600,1400 DONTA Administration Insulin Aspart 1 vial 03/31/18 16:30 04/04/18 12:15 Novolog Vial Sliding Scale - SQ 4 units ACHS DONTA Administration Protocol IMAGING Cardiac ECHO shows LV normal in size EF 60-65%. Mild impaired LV relaxation. ASSESSMENT/PLAN: Patient is a 67 year old female with history of morbid obesity, COPD, LEONIDES ( poorly compliant with home CPAP), diabetes mellitus, hypertension, hyperlipidemia, presents with complaint of shortness of breath worsening over the past two weeks. Acute hypoxic hypercapnic respiratory failure -Likely due to CHF exacerbation secondary to poor home medication compliance vs. community acquired pneumonia -Patient is saturating well on venturi- mask. -Duonebs QID, Albuterol nebulizer Q4H PRN -Symbicort 160/ 4.5 2 puffs BID -Lasix 40mg PO BID -Ceftriaxone, Azithromycin switched to Cefuroxime 500mg PO BID. -Urine negative for legionella antigens -RSV positive, influenza swab negative. -Blood cultures negative for growth -Sputum cultures grow normal respiratory janie -ID consult (Dr. Ayala) appreciated. -Pulmonology consult (Dr. Paige, Dr. Sanches) appreciated. Maintain O2 saturation between 88 - 92% Troponinemia -0.79 -> 1.12 -> 0.79. Likely secondary to demand ischemia. -EKG shows sinus rhythm at 89 BPM, nonspecfic T wave abnormality. No ischemic changes noted. -Heparin drip discontinued after 48 hours. -Cardiology consult (Dr. Jay) appreciated. UTI -Urine culture grows E. coli -Patient is receiving ceftriaxone 2 grams IV daily. Diabetes mellitus -Insulin sliding scale ACHS -Fingerstick blood glucose ACHS Hypertension -Currently holding home antihypertensives. -Follow vital signs FEN -No IV fluids -Follow CMP -Soft diabetic, sodium restricted diet Prophylaxis -Lovenox 40mg subq daily -Protonix 40mg IV daily Disposition -Continue care in medial-surgical floor. Patient is pending SNF placement. Visit type - Emergency Visit Emergency Visit: Yes ED Registration Date: 03/28/18 Care time: The patient presented to the Emergency Department on the above date and was hospitalized for further evaluation of their emergent condition. - New Patient This patient is new to me today: No - Critical Care Critical Care patient: No - Discharge Referral Referred to [facility] Med P.C.: No
--- NOTE | 2018-04-04 13:03 | PN ---
Teaching Attending Note Name of Resident: Xu Vargas ATTENDING PHYSICIAN STATEMENT I saw and evaluated the patient. I reviewed the resident's note and discussed the case with the resident. I agree with the resident's findings and plan as documented. SUBJECTIVE:she is better no new c/o OBJECTIVE: Vital Signs Period Temp Pulse Resp BP Sys/Garner Pulse Ox Last 24 Hr 97.6 F-98.5 F 99-101 20-22 108-157/48-79 96 [address]ent nad lungs coarse bs gayle heart no change ext trace edema abd soft and non tender and normal bs Current Medications Albuterol Sulfate (Ventolin 0.083% Nebulizer Soln -) 1 amp NEB Q4H PRN PRN Reason: SHORT OF BREATH/WHEEZING Albuterol/Ipratropium (Duoneb -) 1 amp NEB RQID [facility] Last Admin: 04/04/18 11:42 Dose: 1 amp Aspirin (Asa -) 81 mg PO DAILY [facility] Last Admin: 04/04/18 10:21 Dose: 81 mg Atorvastatin Calcium (Lipitor -) 80 mg PO HS [facility] Last Admin: 04/03/18 21:16 Dose: 80 mg Cefuroxime Axetil (Ceftin -) 500 mg PO BID [facility] Last Admin: 04/04/18 10:23 Dose: 500 mg Enoxaparin Sodium (Lovenox -) 40 mg SQ DAILY [facility] Last Admin: 04/04/18 10:21 Dose: 40 mg Furosemide (Lasix -) 40 mg PO BID@0600,1400 [facility] Last Admin: 04/04/18 05:43 Dose: 40 mg Insulin Aspart (Novolog Vial Sliding Scale -) 1 vial SQ [facility]; Protocol Last Admin: 04/04/18 12:15 Dose: 4 units ASSESSMENT AND PLAN: This is a 67 year old woman with a history of morbid obesity, COPD, LEONIDES, type 2 DM, HTN, hyperlipidemia who presented to the ED with worsening SOB. 1. Acute on chronic hypoxic and hypercapnic respiratory failure secondary to acute exacerbation of COPD, acute on chronic diastolic heart failure, LEONIDES, OHS - Lasix PO - Continue ceftriaxone, DuoNeb, albuterol as needed 2. Acute NSTEMI - Echo shows normal LV, normal LVEF, no wall motion abnormalities, impaired relaxation, mild PI - Continue aspirin - Add Lipitor 3. E. coli UTI - Continue ceftin 4. Morbid obesity - discussed life style changes 5. Type 2 DM - Continue Novolog sliding scale 6. HTN - Continue Lasix 7. Hyperlipidemia - Lipitor 8-High wbc count - She has no fever and it is the same count as before except gone up to 13.5 from 13. she has no fever and on abx at this time 8. Disposition - Continue PT - Expect patient will need short term rehab at discharge
--- NOTE | 2018-04-04 13:37 | PN ---
Progress Note, Physician History of Present Illness: pulmonary alert,oob-chair,feeling better,-cp,-sob - Current Medication List Current Medications: Active Medications Albuterol Sulfate (Ventolin 0.083% Nebulizer Soln -) 1 amp NEB Q4H PRN PRN Reason: SHORT OF BREATH/WHEEZING Albuterol/Ipratropium (Duoneb -) 1 amp NEB RQID [facility] Last Admin: 04/04/18 11:42 Dose: 1 amp Aspirin (Asa -) 81 mg PO DAILY [facility] Last Admin: 04/04/18 10:21 Dose: 81 mg Atorvastatin Calcium (Lipitor -) 80 mg PO HS [facility] Last Admin: 04/03/18 21:16 Dose: 80 mg Cefuroxime Axetil (Ceftin -) 500 mg PO BID [facility] Last Admin: 04/04/18 10:23 Dose: 500 mg Enoxaparin Sodium (Lovenox -) 40 mg SQ DAILY [facility] Last Admin: 04/04/18 10:21 Dose: 40 mg Furosemide (Lasix -) 40 mg PO BID@0600,1400 [facility] Last Admin: 04/04/18 05:43 Dose: 40 mg Insulin Aspart (Novolog Vial Sliding Scale -) [address] [facility]; Protocol Last Admin: 04/04/18 12:15 Dose: 4 units - Objective Vital Signs: Vital Signs Temperature 98.5 F 04/04/18 06:00 Pulse Rate 101 H 04/04/18 06:00 Respiratory Rate 20 04/04/18 06:00 Blood Pressure 108/48 L 04/04/18 06:00 O2 Sat by Pulse Oximetry (%) 96 04/03/18 21:00 Constitutional: Yes: Calm, Obese Eyes: Yes: WNL HENT: Yes: WNL Neck: Yes: WNL Cardiovascular: Yes: S1, S2 Respiratory: Yes: Rhonchi (few rhonchi) Gastrointestinal: Yes: Normal Bowel Sounds, Soft, Abdomen, Obese Extremities: Yes: WNL Edema: Yes Labs: CBC, BMP Problem List - Problems (1) CHF exacerbation Code(s): I50.9 - HEART FAILURE, UNSPECIFIED Qualifiers: Heart failure type: unspecified Qualified Code(s): I50.9 - Heart failure, unspecified (2) COPD exacerbation Code(s): J44.1 - CHRONIC OBSTRUCTIVE PULMONARY DISEASE W (ACUTE) EXACERBATION (3) NSTEMI (non-ST elevated myocardial infarction) Code(s): I21.4 - NON-ST ELEVATION (NSTEMI) MYOCARDIAL INFARCTION (4) Respiratory failure Code(s): J96.90 - RESPIRATORY FAILURE, UNSP, UNSP W HYPOXIA OR HYPERCAPNIA Qualifiers: Chronicity: unspecified Respiratory failure complication: hypoxia and hypercapnia Qualified Code(s): J96.91 - Respiratory failure, unspecified with hypoxia; J96.92 - Respiratory failure, unspecified with hypercapnia (5) Pneumonia Code(s): J18.9 - PNEUMONIA, UNSPECIFIED ORGANISM (6) CHF (congestive heart failure) Code(s): I50.9 - HEART FAILURE, UNSPECIFIED (7) Acute on chronic respiratory failure with hypoxia and hypercapnia Code(s): J96.21 - ACUTE AND CHRONIC RESPIRATORY FAILURE WITH HYPOXIA; J96.22 - ACUTE AND CHRONIC RESPIRATORY FAILURE WITH HYPERCAPNIA Assessment/Plan ASSESSMENT AND PLAN: Acute on likely Chronic Hypoxic and Hypercapneic Respiratory Failure secondary to pneumonia improving Acute on Chronic Diastolic Heart Failure +Troponins/Acute NSTEMI COPD Morbid Obesity LEONIDES/OHS HTN DM Hyperlipidemia UTI - lasix - monitor urine output, creatinine - daily weights - O2 - inhaled bronchodilators - DVT/GI prophylaxis DR GUERRERO
[2018-04-04] MEDS: ATORVASTATIN CA 80 MG TABLET (FP) PO SCH (21:38)
[2018-04-05] MEDS: FUROSEMIDE 40 MG TABLET (FP) PO SCH ×2 (05:37→13:34)
[2018-04-05] MEDS: INSULIN SLIDING SCALE (NOVOLOG) 1 VIAL SQ SCH ×4 (06:18→21:45)
[2018-04-05] MEDS ORDERED: PT OWN MED DRAWER 7, Y5N ONE (07:12)
[2018-04-05] MEDS: ALBUTEROL SO4 2.5/IPRATROPIUM 0.5 INH SOL 3 ML VIAL.NEB. NEB SCH ×4 (07:15→20:49)
[2018-04-05 07:52] LABS: HEMATOCRIT 43.9 % (32.4-45.2); HEMOGLOBIN 14.3 GM/dL (10.7-15.3); MCHC 32.6 g/dl (32.0-36.0); MEAN CELL VOLUME 82.9 fl (80-96); MEAN PLT VOLUME 9.9 fl (7.5-11.1); PLATELET COUNT 213 K/MM3 (134-434); RDW 17.3 % (11.6-15.6)
[2018-04-05 08:18] LABS: ALBUMIN 2.7 g/dl (3.4-5.0); ALK PHOS 71 U/L (45-117); ANION GAP 4 MMOL/L (8-16); BILIRUBIN,TOTAL 0.9 mg/dL (0.2-1); BLOOD UREA NITROGEN 16 mg/dL (7-18); CALCIUM 8.9 mg/dL (8.5-10.1); CHLORIDE 91 mmol/L (98-107); CO2 41 mmol/L (21-32); CREATININE 0.5 mg/dL (0.55-1.3); GLUCOSE,RANDOM 166 mg/dL (74-106); POTASSIUM 3.6 mmol/L (3.5-5.1); SGOT/AST 21 U/L (15-37); SGPT/ALT 38 U/L (13-61); SODIUM 136 mmol/L (136-145); TOT PROT 7.6 g/dl (6.4-8.2)
[2018-04-05] MEDS: CEFUROXIME AXETIL 500 MG TABLET PO SCH ×2 (10:36→21:45)
[2018-04-05] MEDS: ASPIRIN 81 MG CHEWABLE TABLETS PO SCH (10:37)
[2018-04-05] MEDS: ENOXAPARIN NA (PORCINE) 40 MG/0.4 ML DISP.SYRIN SQ SCH (10:37)
--- NOTE | 2018-04-05 10:47 | PN ---
Progress Note (short form) - Note Progress Note: PULMONARY States breathing is improving. Denies cough or wheezing. Vital Signs Period Temp Pulse Resp BP Sys/Garner Pulse Ox Last 24 Hr 97.9 F-98.4 F 92-98 21-21 100-140/51-79 96 Gen: NAD in chair Heart: RRR Lung: decreased breath sounds at the bases, no wheezes Abd: soft, nontender Ext: distal edema CBC, BMP 04/05/18 07:00 04/05/18 07:00 Active Medications Albuterol Sulfate (Ventolin 0.083% Nebulizer Soln -) 1 amp NEB Q4H PRN PRN Reason: SHORT OF BREATH/WHEEZING Albuterol/Ipratropium (Duoneb -) 1 amp NEB RQID [facility] Last Admin: 04/05/18 07:15 Dose: 1 amp Aspirin (Asa -) 81 mg PO DAILY [facility] Last Admin: 04/05/18 10:37 Dose: 81 mg Atorvastatin Calcium (Lipitor -) 80 mg PO HS [facility] Last Admin: 04/04/18 21:38 Dose: 80 mg Cefuroxime Axetil (Ceftin -) 500 mg PO BID [facility] Last Admin: 04/05/18 10:36 Dose: 500 mg Enoxaparin Sodium (Lovenox -) 40 mg SQ DAILY [facility] Last Admin: 04/05/18 10:37 Dose: 40 mg Furosemide (Lasix -) 40 mg PO BID@0600,1400 [facility] Last Admin: 04/05/18 05:37 Dose: 40 mg Insulin Aspart (Novolog Vial Sliding Scale -) [address] [facility]; Protocol Last Admin: 04/05/18 06:18 Dose: 2 units A/P Acute on likely Chronic Hypoxic and Hypercapneic Respiratory Failure improving Acute on Chronic Diastolic Heart Failure +Troponins/Acute NSTEMI COPD Morbid Obesity LEONIDES/OHS HTN DM Hyperlipidemia UTI - continue lasix - monitor urine output, creatinine - daily weights - complete antibiotics for UTI - inhaled bronchodilators - PO as tolerated - DVT/GI prophylaxis - O2 to keep SpO2 >90% - can be discharged from pulmonary standpoint
--- NOTE | 2018-04-05 14:49 | PN ---
Progress Note, Physician History of Present Illness: 67 year old female with PMHx CHF, COPD on home O2, LEONIDES on CPAP, IDDM, morbid obesity, HTN, HLD, non-compliance with diuretics presented with shortness of breath, increase lower extremity swelling found to have acute respiratory distress requiring intubation for airway protection admitted to ICU for heart failure/COPD exacerbation. Cardiology consulted for further management. Labs remarkable for BNP 10,000s, tropnon 1.1. Currently hemodynamically stable - on ASA, heparin gtt and IV lasix. - Current Medication List Current Medications: Active Medications Albuterol Sulfate (Ventolin 0.083% Nebulizer Soln -) 1 amp NEB Q4H PRN PRN Reason: SHORT OF BREATH/WHEEZING Albuterol/Ipratropium (Duoneb -) 1 amp NEB RQID [facility] Last Admin: 04/05/18 11:00 Dose: 1 amp Aspirin (Asa -) 81 mg PO DAILY [facility] Last Admin: 04/05/18 10:37 Dose: 81 mg Atorvastatin Calcium (Lipitor -) 80 mg PO HS [facility] Last Admin: 04/04/18 21:38 Dose: 80 mg Cefuroxime Axetil (Ceftin -) 500 mg PO BID [facility] Last Admin: 04/05/18 10:36 Dose: 500 mg Enoxaparin Sodium (Lovenox -) 40 mg SQ DAILY [facility] Last Admin: 04/05/18 10:37 Dose: 40 mg Furosemide (Lasix -) 40 mg PO BID@0600,1400 [facility] Last Admin: 04/05/18 13:34 Dose: 40 mg Insulin Aspart (Novolog Vial Sliding Scale -) 1 vial SQ ACHS [facility]; Protocol Last Admin: 04/05/18 12:14 Dose: 6 units - Objective Vital Signs: Vital Signs Temperature 98.1 F 04/05/18 10:00 Pulse Rate 96 H 04/05/18 10:00 Respiratory Rate 18 04/05/18 10:00 Blood Pressure 142/95 04/05/18 10:00 O2 Sat by Pulse Oximetry (%) 96 04/05/18 10:00 Eyes: Yes: WNL, Conjunctiva Clear, EOM Intact HENT: Yes: WNL, Atraumatic, Normocephalic Neck: Yes: WNL, Supple, Trachea Midline Cardiovascular: Yes: WNL, Regular Rate and Rhythm Respiratory: Yes: WNL, Regular, CTA Bilaterally Gastrointestinal: Yes: WNL, Normal Bowel Sounds Genitourinary: Yes: WNL Musculoskeletal: Yes: WNL Extremities: Yes: WNL Edema: No Integumentary: Yes: WNL Neurological: Yes: WNL, Alert, Oriented ...Motor Strength: WNL Psychiatric: Yes: WNL Labs: CBC, BMP 04/05/18 07:00 04/05/18 07:00 Assessment/Plan - Problems (1) NSTEMI (non-ST elevated myocardial infarction) Assessment/Plan: TNI trendied down to 0.6 ECHO: normal LVEF; abnormal diastoic compliance. For coronary artery evaluation (stress MIBI) in am Started atorvastatin 80 mg daily. On ASA 81 mg daily. Code(s): I21.4 - NON-ST ELEVATION (NSTEMI) MYOCARDIAL INFARCTION (2) COPD exacerbation Code(s): J44.1 - CHRONIC OBSTRUCTIVE PULMONARY DISEASE W (ACUTE) EXACERBATION (3) Diastolic CHF Assessment/Plan: No JVD; ?small pleural effusion right base on CXR. On furosemide bid; may be decreased now. F/u electrolytes, BUN/Cr, Is and Os, daily weight. Electrolytes: Keep Mg 2-2.4; K 4-4.5; PO4 2.5-4.9. Code(s): I50.30 - UNSPECIFIED DIASTOLIC (CONGESTIVE) HEART FAILURE (4) Respiratory failure Assessment/Plan: Continue bronchodilators, steroids per cell phone repair technician. Code(s): J96.90 - RESPIRATORY FAILURE, UNSP, UNSP W HYPOXIA OR HYPERCAPNIA Qualifiers: Chronicity: unspecified Respiratory failure complication: hypoxia and hypercapnia Qualified Code(s): J96.91 - Respiratory failure, unspecified with hypoxia; J96.92 - Respiratory failure, unspecified with hypercapnia (5) RSV (acute bronchiolitis due to respiratory syncytial virus) Assessment/Plan: Finishing course of Ceftin for presumed bacerial infection. On precautions for RSV. Code(s): J21.0 - ACUTE BRONCHIOLITIS DUE TO RESPIRATORY SYNCYTIAL VIRUS (6) Diabetes Assessment/Plan: On Novolog. F/u HGBA1c. Code(s): E11.9 - TYPE 2 DIABETES MELLITUS WITHOUT COMPLICATIONS
--- NOTE | 2018-04-05 16:31 | PN ---
Physical Exam: SUBJECTIVE: Patient seen and examined at bedside today. She is resting comfortably in exam bed saturating well with 4L nasal canula. Patient does not endorse any new complaints this morning. She denies subjective fevers, chills, chest pain, palpitations, abdominal pain, nausea, vomiting. OBJECTIVE: Vital Signs Period Temp Pulse Resp BP Sys/Garner Pulse Ox Last 24 Hr 98.1 F-98.4 F 68-98 18-21 104-145/51-95 96-96 GENERAL: Awake, alert. No acute distress. HEAD: Normocephalic, atraumatic EYES: Pupils equal, round and reactive to light. Extraocular movements intact B/ L. No conjunctival injection B/L. NECK: Supple without lymphadenopathy LUNGS: Good inspiratory effort, improving air entry B/L. Faint rhonchi auscultated without wheezing B/L. HEART: Regular rate and rhythm, + S1 and S2 auscultated. ABDOMEN: Obese. Soft. normoactive bowel sounds, no guarding, no rebound, no masses. No hepatomegaly appreciated. EXTREMITIES: 2+ radial pulses b/l, 1+ dorsalis pedis pulses b/l. Chronic venous stasis changes b/l lower extremities. 1+ pitting edema improving B/L. NEUROLOGICAL: Good muscle tone B/L upper and lower extremities. Moving all 4 extremities spontaneously with strength 4/5 b/l upper and lower extremities. No gross focal deficits. Laboratory Results - last 24 hr 04/04/18 04/04/18 04/05/18 17:48 21:40 05:40 WBC RBC Hgb Hct MCV MCH MCHC RDW Plt Count MPV Sodium Potassium Chloride Carbon Dioxide Anion Gap BUN Creatinine Creat Clearance w eGFR POC Glucometer 153 235 152 Random Glucose Calcium Total Bilirubin AST ALT Alkaline Phosphatase Total Protein Albumin 04/05/18 04/05/18 04/05/18 07:00 07:00 11:33 WBC 10.0 RBC 5.30 H Hgb 14.3 Hct 43.9 MCV 82.9 MCH 27.0 MCHC 32.6 RDW 17.3 H Plt Count 213 MPV 9.9 Sodium 136 Potassium 3.6 Chloride 91 L Carbon Dioxide 41 H Anion Gap 4 L BUN 16 Creatinine 0.5 L Creat Clearance w eGFR > 60 POC Glucometer 281 Random Glucose 166 H Calcium 8.9 Total Bilirubin 0.9 AST 21 ALT 38 Alkaline Phosphatase 71 Total Protein 7.6 Albumin 2.7 L Active Medications Generic Name Dose Route Start Last Admin Trade Name Freq PRN Reason Stop Dose Admin Albuterol Sulfate 1 amp 03/31/18 11:29 Ventolin 0.083% Nebulizer Soln - NEB Q4H PRN SHORT OF BREATH/WHEEZING Albuterol/Ipratropium 1 amp 03/31/18 12:00 04/05/18 15:55 Duoneb - NEB 1 amp RQID DONTA Administration Aspirin 81 mg 04/01/18 10:00 04/05/18 10:37 Asa - PO 81 mg DAILY DONTA Administration Atorvastatin Calcium 80 mg 04/03/18 22:00 04/04/18 21:38 Lipitor - PO 80 mg HS DONTA Administration Cefuroxime Axetil 500 mg 04/02/18 22:00 04/05/18 10:36 Ceftin - PO 500 mg BID DONTA Administration Enoxaparin Sodium 40 mg 04/01/18 10:00 04/05/18 10:37 Lovenox - SQ 40 mg DAILY DONTA Administration Furosemide 40 mg 04/02/18 14:00 04/05/18 13:34 Lasix - PO 40 mg BID@0600,1400 DONTA Administration Insulin Aspart 1 vial 03/31/18 16:30 04/05/18 12:14 Novolog Vial Sliding Scale - SQ 6 units ACHS DONTA Administration Protocol IMAGING Cardiac ECHO shows LV normal in size EF 60-65%. Mild impaired LV relaxation. ASSESSMENT/PLAN: Patient is a 67 year old female with history of morbid obesity, COPD, LEONIDES ( poorly compliant with home CPAP), diabetes mellitus, hypertension, hyperlipidemia, presents with complaint of shortness of breath worsening over the past two weeks. Acute hypoxic hypercapnic respiratory failure -Likely due to CHF exacerbation secondary to poor home medication compliance vs. community acquired pneumonia -Patient is saturating well on venturi- mask. -Duonebs QID, Albuterol nebulizer Q4H PRN -Symbicort 160/ 4.5 2 puffs BID -Lasix 40mg PO BID -Cefuroxime 500mg PO BID. -Urine negative for legionella antigens -RSV positive, influenza swab negative. -Blood cultures negative for growth -Sputum cultures grow normal respiratory janie -ID consult (Dr. Ayala) appreciated. -Pulmonology consult (Dr. Paige, Dr. Sanches) appreciated. Maintain O2 saturation between 88 - 92% Troponinemia -0.79 -> 1.12 -> 0.79. Likely secondary to demand ischemia. -EKG shows sinus rhythm at 89 BPM, nonspecfic T wave abnormality. No ischemic changes noted. -Heparin drip discontinued after 48 hours. -Cardiology consult (Dr. Jay) appreciated. UTI -Urine culture grows E. coli -Treated with Ceftriaxone Diabetes mellitus -Insulin sliding scale ACHS -Fingerstick blood glucose ACHS Hypertension -Currently holding home antihypertensives. -Follow vital signs FEN -No IV fluids -Follow CMP -Soft diabetic, sodium restricted diet Prophylaxis -Lovenox 40mg subq daily -Protonix 40mg IV daily Disposition -Continue care in medial-surgical floor. Patient is pending SNF placement. Visit type - Emergency Visit Emergency Visit: Yes ED Registration Date: 03/28/18 Care time: The patient presented to the Emergency Department on the above date and was hospitalized for further evaluation of their emergent condition. - New Patient This patient is new to me today: No - Critical Care Critical Care patient: No - Discharge Referral Referred to [facility] Med P.C[facility] No
--- NOTE | 2018-04-05 19:54 | PN ---
Teaching Attending Note Name of Resident: Xu Vargas ATTENDING PHYSICIAN STATEMENT I saw and evaluated the patient. I reviewed the resident's note and discussed the case with the resident. I agree with the resident's findings and plan as documented. SUBJECTIVE: Feeling much improved. No SOB. No fever/chills. OBJECTIVE: Afebrile/Hemodynamically Stable. Last Vital Signs Temp Pulse Resp BP Pulse Ox 98.4 F 99 H 20 116/59 L 96 04/05/18 17:30 04/05/18 17:30 04/05/18 17:30 04/05/18 17:30 04/05/18 10:00 HEENT - Atraumatic. Normocephalic. Heart - S1, S2, RRR Lungs - clear to auscultation, reduced air entry at bases Abdomen - High BMI. Soft, non-tender. Bowel Sounds normal. Extremities - trace edema. Chronic stasis skin changes. Neuro - AAO x 3. Tone/Power normal all extremities. Laboratory Results - last 24 hr 04/04/18 04/05/18 04/05/18 21:40 05:40 07:00 WBC 10.0 RBC 5.30 H Hgb 14.3 Hct 43.9 MCV 82.9 MCH 27.0 MCHC 32.6 RDW 17.3 H Plt Count 213 MPV 9.9 Sodium Potassium Chloride Carbon Dioxide Anion Gap BUN Creatinine Creat Clearance w eGFR POC Glucometer 235 152 Random Glucose Calcium Total Bilirubin AST ALT Alkaline Phosphatase Total Protein Albumin 04/05/18 04/05/18 04/05/18 07:00 11:33 18:15 WBC RBC Hgb Hct MCV MCH MCHC RDW Plt Count MPV Sodium 136 Potassium 3.6 Chloride 91 L Carbon Dioxide 41 H Anion Gap 4 L BUN 16 Creatinine 0.5 L Creat Clearance w eGFR > 60 POC Glucometer 281 168 Random Glucose 166 H Calcium 8.9 Total Bilirubin 0.9 AST 21 ALT 38 Alkaline Phosphatase 71 Total Protein 7.6 Albumin 2.7 L Current Medications Generic Name Dose Route Start Last Admin Trade Name Freq PRN Reason Stop Dose Admin Albuterol Sulfate 1 amp 03/31/18 11:29 Ventolin 0.083% Nebulizer Soln - NEB Q4H PRN SHORT OF BREATH/WHEEZING Albuterol/Ipratropium 1 amp 03/31/18 12:00 04/05/18 15:55 Duoneb - NEB 1 amp RQID DONTA Administration Aspirin 81 mg 04/01/18 10:00 04/05/18 10:37 Asa - PO 81 mg DAILY DONTA Administration Atorvastatin Calcium 80 mg 04/03/18 22:00 04/04/18 21:38 Lipitor - PO 80 mg HS DONTA Administration Cefuroxime Axetil 500 mg 04/02/18 22:00 04/05/18 10:36 Ceftin - PO 500 mg BID DONTA Administration Enoxaparin Sodium 40 mg 04/01/18 10:00 04/05/18 10:37 Lovenox - SQ 40 mg DAILY DONTA Administration Furosemide 40 mg 04/02/18 14:00 04/05/18 13:34 Lasix - PO 40 mg BID@0600,1400 DONTA Administration Insulin Aspart 1 vial 03/31/18 16:30 04/05/18 18:27 Novolog Vial Sliding Scale - SQ Not Given A[facility]S [facility] Protocol ASSESSMENT AND PLAN: 67 year old female with a history of morbid obesity, COPD, LEONIDES, DM 2, HTN, HLD who presented to the ED with worsening SOB. 1. Acute on chronic hypoxic and hypercapnic respiratory failure secondary to acute exacerbation of COPD, acute on chronic diastolic heart failure, LEONIDES, OHS Intubated/Extubated 03/30 Urine negative for legionella antigens Flu negative, RSV positive. Received adequate course of Ceftriaxone and Azithromycin Continue DuoNeb, albuterol prn. Continue Lasix 40mg bid - importance of compliance with lasix as out-patient explained to patient. Wean off supplemental O2. 2. Acute NSTEMI TropI max 1.12 Echo shows normal LV, normal LVEF, no wall motion abnormalities, impaired relaxation, mild PI Continue Aspirin and Lipitor. Stress MIBI scheduled 04/06 Cardiology following. 3. E. coli UTI Ceftriaxone switched to Ceftin. Patient likely had adequate course, will discontinue in AM. 4. DM 2 - Continue Novolog sliding scale 5. HTN - Previously on Losartan, held on admission. BP currently borderline, will hold for now. 6. HLD - continue Lipitor. DVT Px - Lovenox SQ
[2018-04-05] MEDS: ATORVASTATIN CA 80 MG TABLET (FP) PO SCH (21:45)
[2018-04-06] MEDS: INSULIN SLIDING SCALE (NOVOLOG) 1 VIAL SQ SCH ×4 (06:05→23:44)
[2018-04-06] MEDS: FUROSEMIDE 40 MG TABLET (FP) PO SCH ×2 (06:05→14:25)
[2018-04-06] MEDS: ALBUTEROL SO4 2.5/IPRATROPIUM 0.5 INH SOL 3 ML VIAL.NEB. NEB SCH ×4 (08:41→20:30)
[2018-04-06] MEDS ORDERED: REGADENOSON 0.4 MG/5 ML PRE-FILLED SYRINGE IVPUSH ONE ×2 (10:33→10:45)
--- NOTE | 2018-04-06 10:51 | PN ---
Progress Note, Physician Chief Complaint: Pt in wheelchair; awaits completion of stress MIBI. No chest pain or dyspnea. History of Present Illness: The patient is a 67-year-old female with a past medical history of asthma, diastolic CHF, COPD, HTN, DM, and HLD, presenting with shortness of breath and bilateral pitting edema for the past 2 days. Patient is on 20 of Lasix PO daily , but admits to being noncompliant with her meds. Patient also admits to not following up with her PCP. Patient denies chest pain, palpitations, dizziness, headache, vision changes, numbness/weakness/tingling in her extremities, N/V/D, or urinary symptoms. Allergies: NKDA Surgeries: None reported Social Hx: No reported alcohol, drug or cigarette use. - Current Medication List Current Medications: Active Medications Albuterol Sulfate (Ventolin 0.083% Nebulizer Soln -) 1 amp NEB Q4H PRN PRN Reason: SHORT OF BREATH/WHEEZING Albuterol/Ipratropium (Duoneb -) 1 amp NEB RQID [facility] Last Admin: 04/06/18 08:41 Dose: Not Given Aspirin (Asa -) 81 mg PO DAILY [facility] Last Admin: 04/05/18 10:37 Dose: 81 mg Atorvastatin Calcium (Lipitor -) 80 mg PO HS [facility] Last Admin: 04/05/18 21:45 Dose: 80 mg Cefuroxime Axetil (Ceftin -) 500 mg PO BID [facility] Last Admin: 04/05/18 21:45 Dose: 500 mg Enoxaparin Sodium (Lovenox -) 40 mg SQ DAILY [facility] Last Admin: 04/05/18 10:37 Dose: 40 mg Furosemide (Lasix -) 40 mg PO BID@0600,1400 [facility] Last Admin: 04/06/18 06:05 Dose: Not Given Insulin Aspart (Novolog Vial Sliding Scale -) 1 vial SQ ACHS [facility]; Protocol Last Admin: 04/06/18 06:05 Dose: Not Given - Objective Vital Signs: Vital Signs Temperature 98.1 F 04/05/18 22:00 Pulse Rate 92 H 04/05/18 22:00 Respiratory Rate 20 04/05/18 22:00 Blood Pressure 118/61 04/05/18 22:00 O2 Sat by Pulse Oximetry (%) 96 04/05/18 21:00 Constitutional: Yes: Obese Eyes: Yes: WNL Labs: CBC, BMP 04/05/18 07:00 04/05/18 07:00 Problem List - Problems (1) NSTEMI (non-ST elevated myocardial infarction) Assessment/Plan: TNI trendied down to 0.6 ECHO: normal LVEF; abnormal diastoic compliance. Started atorvastatin 80 mg daily. On ASA 81 mg daily. For stress MIBI today. Code(s): I21.4 - NON-ST ELEVATION (NSTEMI) MYOCARDIAL INFARCTION (2) COPD exacerbation Code(s): J44.1 - CHRONIC OBSTRUCTIVE PULMONARY DISEASE W (ACUTE) EXACERBATION (3) Diastolic CHF Assessment/Plan: No JVD; ?small pleural effusion right base on CXR. On furosemide bid; may be decreased now. F/u electrolytes, BUN/Cr, Is and Os, daily weight. Electrolytes: Keep Mg 2-2.4; K 4-4.5; PO4 2.5-4.9. Code(s): I50.30 - UNSPECIFIED DIASTOLIC (CONGESTIVE) HEART FAILURE (4) Respiratory failure Code(s): J96.90 - RESPIRATORY FAILURE, UNSP, UNSP W HYPOXIA OR HYPERCAPNIA Qualifiers: Chronicity: unspecified Respiratory failure complication: hypoxia and hypercapnia Qualified Code(s): J96.91 - Respiratory failure, unspecified with hypoxia; J96.92 - Respiratory failure, unspecified with hypercapnia (5) RSV (acute bronchiolitis due to respiratory syncytial virus) Code(s): J21.0 - ACUTE BRONCHIOLITIS DUE TO RESPIRATORY SYNCYTIAL VIRUS (6) Diabetes Code(s): E11.9 - TYPE 2 DIABETES MELLITUS WITHOUT COMPLICATIONS
[2018-04-06] MEDS ORDERED: AMINOPHYLLINE 250 MG/10 ML VIAL ONE (12:08)
[2018-04-06] MEDS ORDERED: AMINOPHYLLINE 250 MG/10 ML VIAL IVPUSH ONE (12:30)
[2018-04-06] MEDS: ASPIRIN 81 MG CHEWABLE TABLETS PO SCH (14:26)
[2018-04-06] MEDS: ENOXAPARIN NA (PORCINE) 40 MG/0.4 ML DISP.SYRIN SQ SCH (14:26)
[2018-04-06] MEDS: CEFUROXIME AXETIL 500 MG TABLET PO SCH (14:27)
--- NOTE | 2018-04-06 15:00 | PN ---
Physical Exam: SUBJECTIVE: Patient seen and examined at bedside this morning resting comfortably in exam bed. She is saturating well on 4L nasal canula. Patient denies shortness of breath, cough, chest pain, palpitations, abdominal pain, nausea, vomiting. OBJECTIVE: Vital Signs Period Temp Pulse Resp BP Sys/Garner Pulse Ox Last 24 Hr 98.1 F-98.6 F 68-100 18-22 116-145/59-91 96 GENERAL: Awake, alert. No acute distress. HEAD: Normocephalic, atraumatic EYES: Pupils equal, round and reactive to light. Extraocular movements intact B/ L. No conjunctival injection B/L. NECK: Supple without lymphadenopathy LUNGS: Good inspiratory effort, improving air entry B/L. Faint rhonchi auscultated without wheezing B/L. HEART: Regular rate and rhythm, + S1 and S2 auscultated. ABDOMEN: Obese. Soft. normoactive bowel sounds, no guarding, no rebound, no masses. No hepatomegaly appreciated. EXTREMITIES: 2+ radial pulses b/l, 1+ dorsalis pedis pulses b/l. Chronic venous stasis changes b/l lower extremities. 1+ pitting edema improving B/L. NEUROLOGICAL: Good muscle tone B/L upper and lower extremities. Moving all 4 extremities spontaneously with strength 4/5 b/l upper and lower extremities. No gross focal deficits. Laboratory Results - last 24 hr 04/05/18 04/05/18 04/06/18 18:15 20:14 05:52 POC Glucometer 168 211 157 Active Medications Generic Name Dose Route Start Last Admin Trade Name Freq PRN Reason Stop Dose Admin Albuterol Sulfate 1 amp 03/31/18 11:29 Ventolin 0.083% Nebulizer Soln - NEB Q4H PRN SHORT OF BREATH/WHEEZING Albuterol/Ipratropium 1 amp 03/31/18 12:00 04/06/18 11:22 Duoneb - NEB Not Given RQID DONTA Aspirin 81 mg 04/01/18 10:00 04/06/18 14:26 Asa - PO 81 mg DAILY DONTA Administration Atorvastatin Calcium 80 mg 04/03/18 22:00 04/05/18 21:45 Lipitor - PO 80 mg HS DONTA Administration Cefuroxime Axetil 500 mg 04/02/18 22:00 04/06/18 14:27 Ceftin - PO 500 mg BID DONTA Administration Enoxaparin Sodium 40 mg 04/01/18 10:00 04/06/18 14:26 Lovenox - SQ 40 mg DAILY DONTA Administration Furosemide 40 mg 04/02/18 14:00 04/06/18 14:25 Lasix - PO 40 mg BID@0600,1400 DONTA Administration Insulin Aspart 1 vial 03/31/18 16:30 04/06/18 12:32 Novolog Vial Sliding Scale - SQ Not Given ACHS [facility] Protocol IMAGING Cardiac ECHO shows LV normal in size EF 60-65%. Mild impaired LV relaxation. ASSESSMENT/PLAN: Patient is a 67 year old female with history of morbid obesity, COPD, LEONIDES ( poorly compliant with home CPAP), diabetes mellitus, hypertension, hyperlipidemia, presents with complaint of shortness of breath worsening over the past two weeks. Acute hypoxic hypercapnic respiratory failure -Likely due to CHF exacerbation secondary to poor home medication compliance vs. community acquired pneumonia -Patient is saturating well on venturi- mask. -Duonebs QID, Albuterol nebulizer Q4H PRN -Symbicort 160/ 4.5 2 puffs BID -Lasix 40mg PO daily -Cefuroxime discontinued. -Urine negative for legionella antigens -RSV positive, influenza swab negative. -Blood cultures negative for growth -Sputum cultures grow normal respiratory janie -ID consult (Dr. Ayala) appreciated. -Pulmonology consult (Dr. Paige, Dr. Sanches) appreciated. Maintain O2 saturation between 88 - 92% Troponinemia -0.79 -> 1.12 -> 0.79. Likely secondary to demand ischemia. -EKG shows sinus rhythm at 89 BPM, nonspecfic T wave abnormality. No ischemic changes noted. -Heparin drip discontinued after 48 hours. -Stress MIBI scan shows normal perfusion of myocardium with normal LV function. EF 64%. -Cardiology consult (Dr. Jay) appreciated. UTI -Urine culture grows E. coli -Treated with Ceftriaxone Diabetes mellitus -Insulin sliding scale ACHS -Fingerstick blood glucose ACHS Hypertension -Currently holding home antihypertensives. -Follow vital signs FEN -No IV fluids -Follow CMP -Soft diabetic, sodium restricted diet Prophylaxis -Lovenox 40mg subq daily -Protonix 40mg IV daily Disposition -Continue care in [facility] floor. Patient is pending SNF placement. Visit type - Emergency Visit Emergency Visit: Yes ED Registration Date: 03/28/18 Care time: The patient presented to the Emergency Department on the above date and was hospitalized for further evaluation of their emergent condition. - New Patient This patient is new to me today: No - Critical Care Critical Care patient: No - Discharge Referral Referred to [facility] No
--- NOTE | 2018-04-06 17:49 | PN ---
Teaching Attending Note Name of Resident: Xu Vargas ATTENDING PHYSICIAN STATEMENT I saw and evaluated the patient. I reviewed the resident's note and discussed the case with the resident. I agree with the resident's findings and plan as documented. SUBJECTIVE: Feeling comfortable, SOB improved. No fever/chills. OBJECTIVE: Afebrile/Hemodynamically Stable. Last Vital Signs Temp Pulse Resp BP Pulse Ox 98.6 F 91 H 18 120/66 98 04/06/18 14:37 04/06/18 16:48 04/06/18 14:37 04/06/18 14:37 04/06/18 16:48 HEENT - Atraumatic. Normocephalic. Heart - S1, S2, RRR Lungs - clear to auscultation, reduced air entry at bases Abdomen - High BMI. Soft, non-tender. Bowel Sounds normal. Extremities - Edema +. Chronic venous stasis skin changes LEs. Neuro - AAO x 3. Tone/Power normal all extremities. Laboratory Results - last 24 hr 04/05/18 04/05/18 04/06/18 18:15 20:14 05:52 POC Glucometer 168 211 157 Current Medications Generic Name Dose Route Start Last Admin Trade Name Freq PRN Reason Stop Dose Admin Albuterol Sulfate 1 amp 03/31/18 11:29 Ventolin 0.083% Nebulizer Soln - NEB Q4H PRN SHORT OF BREATH/WHEEZING Albuterol/Ipratropium 1 amp 03/31/18 12:00 04/06/18 16:52 Duoneb - NEB 1 amp RQID DONTA Administration Aspirin 81 mg 04/01/18 10:00 04/06/18 14:26 Asa - PO 81 mg DAILY DONTA Administration Atorvastatin Calcium 80 mg 04/03/18 22:00 04/05/18 21:45 Lipitor - PO 80 mg HS DONTA Administration Cefuroxime Axetil 500 mg 04/02/18 22:00 04/06/18 14:27 Ceftin - PO 500 mg BID DONTA Administration Enoxaparin Sodium 40 mg 04/01/18 10:00 04/06/18 14:26 Lovenox - SQ 40 mg DAILY DONTA Administration Furosemide 40 mg 04/07/18 10:00 Lasix - PO DAILY DONTA Insulin Aspart 1 vial 03/31/18 16:30 04/06/18 17:23 Novolog Vial Sliding Scale - SQ 2 units ACHS DONTA Administration Protocol ASSESSMENT AND PLAN: 67 year old female with a history of morbid obesity, CRF sec to COPD on Home O2 , LEONIDES, DM 2, HTN, HLD who presented to the ED with worsening SOB. 1. Acute on chronic hypoxic and hypercapnic respiratory failure secondary to acute exacerbation of COPD, acute on chronic diastolic heart failure, LEONIDES, OHS Intubated/Extubated 03/30 Urine negative for legionella antigens Flu negative, RSV positive. Received adequate course of Ceftriaxone and Azithromycin Continue DuoNeb, albuterol prn. Lasix decreased to 40mg daily - importance of compliance with lasix as out- patient explained to patient. Supplemental O2 to keep SpO2 > 90% 2. Acute NSTEMI TropI max 1.12 Echo shows normal LV, normal LVEF, no wall motion abnormalities, impaired relaxation, mild PI Continue Aspirin and Lipitor. Stress MIBI 04/06 negative Cardiology following. 3. E. coli UTI Ceftriaxone switched to Ceftin. Patient likely had adequate course, will discontinue. 4. DM 2 - Continue Novolog sliding scale 5. HTN - Previously on Losartan, held on admission. BP currently borderline, will continue to hold for now. 6. HLD - continue Lipitor. DVT Px - Lovenox SQ
[2018-04-06] MEDS: ATORVASTATIN CA 80 MG TABLET (FP) PO SCH (23:43)
[2018-04-07] MEDS: INSULIN SLIDING SCALE (NOVOLOG) 1 VIAL SQ SCH ×3 (06:23→17:34)
[2018-04-07] MEDS: ALBUTEROL SO4 2.5/IPRATROPIUM 0.5 INH SOL 3 ML VIAL.NEB. NEB SCH ×3 (07:45→16:15)
[2018-04-07 08:11] LABS: HEMATOCRIT 41.4 % (32.4-45.2); HEMOGLOBIN 13.1 GM/dL (10.7-15.3); MCHC 31.8 g/dl (32.0-36.0); MEAN CELL VOLUME 85.1 fl (80-96); PLATELET COUNT 171 K/MM3 (134-434); RBC 4.86 M/mm3 (3.60-5.2); RDW 17.5 % (11.6-15.6); WHITE BLOOD COUNT 7.7 K/mm3 (4.0-10.0)
[2018-04-07 08:23] LABS: ALBUMIN 2.4 g/dl (3.4-5.0); ALK PHOS 64 U/L (45-117); ANION GAP 2 MMOL/L (8-16); BILIRUBIN,TOTAL 0.7 mg/dL (0.2-1); BLOOD UREA NITROGEN 13 mg/dL (7-18); CALCIUM 8.8 mg/dL (8.5-10.1); CHLORIDE 96 mmol/L (98-107); CO2 41 mmol/L (21-32); CREATININE 0.5 mg/dL (0.55-1.3); GLUCOSE,RANDOM 146 mg/dL (74-106); POTASSIUM 3.5 mmol/L (3.5-5.1); SGOT/AST 18 U/L (15-37); SGPT/ALT 30 U/L (13-61); SODIUM 139 mmol/L (136-145)
[2018-04-07] MEDS ORDERED: FUROSEMIDE 40 MG TABLET (FP) PO SCH (10:00)
[2018-04-07] MEDS: ASPIRIN 81 MG CHEWABLE TABLETS PO SCH (10:10)
[2018-04-07] MEDS: ENOXAPARIN NA (PORCINE) 40 MG/0.4 ML DISP.SYRIN SQ SCH (10:10)
--- NOTE | 2018-04-07 11:44 | PN ---
Progress Note, Physician History of Present Illness: 67 year old female with PMHx CHF, COPD on home O2, LEONIDES on CPAP, IDDM, morbid obesity, HTN, HLD, non-compliance with diuretics presented with shortness of breath, increase lower extremity swelling found to have acute respiratory distress requiring intubation for airway protection admitted to ICU for heart failure/COPD exacerbation. Cardiology consulted for further management. Labs remarkable for BNP 10,000s, tropnon 1.1. Currently hemodynamically stable - on ASA, heparin gtt and IV lasix. - Current Medication List Current Medications: Active Medications Albuterol Sulfate (Ventolin 0.083% Nebulizer Soln -) 1 amp NEB Q4H PRN PRN Reason: SHORT OF BREATH/WHEEZING Albuterol/Ipratropium (Duoneb -) 1 amp NEB RQID [facility] Last Admin: 04/07/18 11:25 Dose: 1 amp Aspirin (Asa -) 81 mg PO DAILY [facility] Last Admin: 04/07/18 10:10 Dose: 81 mg Atorvastatin Calcium (Lipitor -) 80 mg PO HS [facility] Last Admin: 04/06/18 23:43 Dose: 80 mg Enoxaparin Sodium (Lovenox -) 40 mg SQ DAILY [facility] Last Admin: 04/07/18 10:10 Dose: 40 mg Furosemide (Lasix -) 40 mg PO DAILY [facility] Last Admin: 04/07/18 10:10 Dose: 40 mg Insulin Aspart (Novolog Vial Sliding Scale -) 1 vial SQ [facility]; Protocol Last Admin: 04/07/18 06:23 Dose: Not Given - Objective Vital Signs: Vital Signs Temperature 97.7 F 04/06/18 23:50 Pulse Rate 90 04/06/18 23:50 Respiratory Rate 19 04/06/18 23:50 Blood Pressure 134/64 04/06/18 23:50 O2 Sat by Pulse Oximetry (%) 98 04/06/18 21:00 Eyes: Yes: WNL, Conjunctiva Clear, EOM Intact HENT: Yes: WNL, Atraumatic, Normocephalic Neck: Yes: WNL, Supple, Trachea Midline Cardiovascular: Yes: WNL, Regular Rate and Rhythm Respiratory: Yes: WNL, Regular, CTA Bilaterally Gastrointestinal: Yes: WNL, Normal Bowel Sounds Genitourinary: Yes: WNL Musculoskeletal: Yes: WNL Extremities: Yes: WNL Edema: No Integumentary: Yes: WNL Neurological: Yes: WNL, Alert, Oriented ...Motor Strength: WNL Psychiatric: Yes: WNL Labs: CBC, BMP 04/07/18 06:30 04/07/18 06:30 Assessment/Plan - Problems (1) NSTEMI (non-ST elevated myocardial infarction) Assessment/Plan: TNI trendied down to 0.6 ECHO: normal LVEF; abnormal diastoic compliance. Started atorvastatin 80 mg daily. On ASA 81 mg daily. MIBI no perfussion defects TID 1.24 Code(s): I21.4 - NON-ST ELEVATION (NSTEMI) MYOCARDIAL INFARCTION (2) COPD exacerbation Code(s): J44.1 - CHRONIC OBSTRUCTIVE PULMONARY DISEASE W (ACUTE) EXACERBATION (3) Diastolic CHF Assessment/Plan: No JVD; ?small pleural effusion right base on CXR. On furosemide bid; may be decreased now. F/u electrolytes, BUN/Cr, Is and Os, daily weight. Electrolytes: Keep Mg 2-2.4; K 4-4.5; PO4 2.5-4.9. Code(s): I50.30 - UNSPECIFIED DIASTOLIC (CONGESTIVE) HEART FAILURE (4) Respiratory failure Code(s): J96.90 - RESPIRATORY FAILURE, UNSP, UNSP W HYPOXIA OR HYPERCAPNIA Qualifiers: Chronicity: unspecified Respiratory failure complication: hypoxia and hypercapnia Qualified Code(s): J96.91 - Respiratory failure, unspecified with hypoxia; J96.92 - Respiratory failure, unspecified with hypercapnia (5) RSV (acute bronchiolitis due to respiratory syncytial virus) Code(s): J21.0 - ACUTE BRONCHIOLITIS DUE TO RESPIRATORY SYNCYTIAL VIRUS (6) Diabetes Code(s): E11.9 - TYPE 2 DIABETES MELLITUS WITHOUT COMPLICATIONS
--- NOTE | 2018-04-07 13:56 | PN ---
Progress Note (short form) - Note Progress Note: PULMONARY States breathing is improving. Denies cough or wheezing. Vital Signs Period Temp Pulse Resp BP Sys/Garner Pulse Ox Last 24 Hr 97.7 F-98.6 F 71-98 18-20 120-151/64-85 98-98 Gen: NAD in chair Heart: RRR Lung: decreased breath sounds at the bases, no wheezes Abd: soft, nontender Ext: distal edema CBC, BMP 04/07/18 06:30 04/07/18 06:30 Active Medications Albuterol Sulfate (Ventolin 0.083% Nebulizer Soln -) 1 amp NEB Q4H PRN PRN Reason: SHORT OF BREATH/WHEEZING Albuterol/Ipratropium (Duoneb -) 1 amp NEB RQID [facility] Last Admin: 04/07/18 11:25 Dose: 1 amp Aspirin (Asa -) 81 mg PO DAILY [facility] Last Admin: 04/07/18 10:10 Dose: 81 mg Atorvastatin Calcium (Lipitor -) 80 mg PO HS [facility] Last Admin: 04/06/18 23:43 Dose: 80 mg Enoxaparin Sodium (Lovenox -) 40 mg SQ DAILY [facility] Last Admin: 04/07/18 10:10 Dose: 40 mg Furosemide (Lasix -) 40 mg PO DAILY [facility] Last Admin: 04/07/18 10:10 Dose: 40 mg Insulin Aspart (Novolog Vial Sliding Scale -) 1 vial SQ ACHS [facility]; Protocol Last Admin: 04/07/18 12:00 Dose: 2 units A/P Acute on likely Chronic Hypoxic and Hypercapneic Respiratory Failure improving Acute on Chronic Diastolic Heart Failure +Troponins/Acute NSTEMI COPD Morbid Obesity LEONIDES/OHS HTN DM Hyperlipidemia UTI - continue lasix - daily weights - completed antibiotics for UTI - inhaled bronchodilators - PO as tolerated - DVT/GI prophylaxis - O2 to keep SpO2 >90% - can be discharged from pulmonary standpoint
[2018-04-07 14:17] VITALS: BP 145/65; PULSE 70; TEMP 98.4
[2018-04-07] MEDS ORDERED: PT OWN MED DRAWER 7, Y5N ONE (14:41)
--- NOTE | 2018-04-07 14:45 | DS ---
Physical Exam: SUBJECTIVE: Patient seen and examined at bedside this morning resting comfortably in exam bed. She is saturating well on 4L nasal canula. Patient denies shortness of breath, cough, chest pain, palpitations, abdominal pain, nausea, vomiting. OBJECTIVE: Vital Signs Period Temp Pulse Resp BP Sys/Garner Pulse Ox Last 24 Hr 97.7 F-98.4 F 70-94 18-20 130-151/64-85 98-98 PHYSICAL EXAM GENERAL: Awake, alert. No acute distress. HEAD: Normocephalic, atraumatic EYES: Pupils equal, round and reactive to light. Extraocular movements intact B/ L. No conjunctival injection B/L. NECK: Supple without lymphadenopathy LUNGS: Good inspiratory effort, improving air entry B/L. Faint rhonchi auscultated without wheezing B/L. HEART: Regular rate and rhythm, + S1 and S2 auscultated. ABDOMEN: Obese. Soft. normoactive bowel sounds, no guarding, no rebound, no masses. No hepatomegaly appreciated. EXTREMITIES: 2+ radial pulses b/l, 1+ dorsalis pedis pulses b/l. Chronic venous stasis changes b/l lower extremities. 1+ pitting edema improving B/L. NEUROLOGICAL: Good muscle tone B/L upper and lower extremities. Moving all 4 extremities spontaneously with strength 4/5 b/l upper and lower extremities. No gross focal deficits. LABS Laboratory Results - last 24 hr 04/07/18 04/07/18 06:30 06:30 WBC 7.7 RBC 4.86 Hgb 13.1 Hct 41.4 MCV 85.1 MCH 27.0 MCHC 31.8 L RDW 17.5 H Plt Count 171 MPV 10.0 Sodium 139 Potassium 3.5 Chloride 96 L Carbon Dioxide 41 H Anion Gap 2 L BUN 13 Creatinine 0.5 L Creat Clearance w eGFR > 60 Random Glucose 146 H Calcium 8.8 Total Bilirubin 0.7 AST 18 ALT 30 Alkaline Phosphatase 64 Total Protein 7.0 Albumin 2.4 L HOSPITAL COURSE: Date of Admission:03/28/18 Date of Discharge: 04/07/18 Patient is a 67 year old female with history of morbid obesity, COPD, LEONIDES ( poorly compliant with home CPAP), diabetes mellitus, hypertension, hyperlipidemia, presented with complaint of shortness of breath. Admitted for acute hypoxic hypercapnic respiratory failure likely due to CHF exacerbation secondary to poor home medication compliance vs. community acquired pneumonia. Patient was intubated in ED, and admitted to ICU. She was found to be RSV positive, influenza swab negative. Urine was negative for legionella antigens. Blood cultures were negative for growth. Sputum cultures grew normal respiratory janie. She was given vancomycin and zosyn in ED, and started on Ceftriaxone and Azithromycin with ID recommendations. Urine culture grew E.coli that was sensitive to Ceftriaxone. Troponins upon admission peaked at 1.12. Patient evaluated by cardiology who discussed NSTEMI likely secondary to demand ischemia. EKG showed sinus rhythm at 89 BPM, nonspecfic T wave abnormality. She was started on Heparin drip for 48 hours with cardiology recommendations. Patient was successfully weaned from ventilator and extubated. She was evaluated by physical therapist who recommended rehab placement, however patient and her son refused, in place of her going home. Cardiac ECHO showed LV normal in size without regional wall abnormalities. Mild impaired relaxation noted. Stress MIBI scan showed normal perfusion of myocardium with normal LV function. EF 64%. She was discharged home with VNS services. To continue her home oxygen, and CPAP. Lasix dose increased to 40mg daily, Aorvastatin increased to 80mg daily, begun on Aspirin 81mg daily. Insulin dose changed to 10 units subq daily. Prescription sent for glucometer, lancets, test strips, and alcohol pads. Discharge instructions discussed with her son. Patient discharged with follow up with primary care physician, crusher operator, edger saw operator. Minutes to complete discharge: 47 Discharge Summary Reason For Visit: ACUTE ON CHRONIC HEART FAILURE,RESPIRATORY Current Active Problems Acute on chronic respiratory failure with hypoxia and hypercapnia (Acute) CHF (congestive heart failure) (Acute) CHF exacerbation (Acute) COPD exacerbation (Acute) Diastolic CHF (Acute) NSTEMI (non-ST elevated myocardial infarction) (Acute) Pneumonia (Acute) RSV (acute bronchiolitis due to respiratory syncytial virus) (Acute) Respiratory failure (Acute) Diabetes (Chronic) Condition: Improved - Instructions Diet, Activity, Other Instructions: You were admitted to the hospital due to difficulty breathing and respiratory failure You were intubated and needed help from a machine to breathe. After treatment, you were able to be taken off of the ventilator machine. You were simultaneously treated with antibiotics for pneumonia, which was the cause of the respiratory failure. Medical Recommendations: Continue taking your home medications as directed. We have changed your Lasix dose to 40mg daily. It is very important you take this medicine every day. You will begin taking Aspirin 81mg daily. We have increased your Atorvastatin dose to 80mg daily. We have changed your daily Insulin dose to 10 units daily. Continue checking your blood sugars daily, and discuss your readings with your primary care physician, who may need to change your dosage, based on your readings. A prescription for glucometer device, test strips, lancets, and alcohol pads have been sent to your pharmacy. Continue home oxygen 2-3 Liters, as directed Discuss the new medication changes with your primary care physician at your appointment. Referrals: Follow up with your primary care physician (Dr. Valenzuela) within two- three days after hospital discharge Follow up with crusher operator (Dr. Paige) within one week after hospital discharge Follow up with edger saw operator (Dr. Jay) within one week after hospital discharge Return to the nearest Emergency Department if you experience any fevers, chills , shortness of breath, chest pain, palpitations, abdominal pain, nausea, vomiting. Referrals: Regan Jay MD [Staff Physician] - 1 Week Niko Valenzuela MD [Non Staff, Medical] - 04/09/18 Kolby Paige MD [Staff Physician] - 1 Week Disposition: VNS/HOME HEALTH CARE - Home Medications Comprehensive Discharge Medication List: Ambulatory Orders Albuterol Sulfate Inhaler - [Ventolin HFA Inhaler -] 2 inh PO Q4H PRN 03/27/18 Losartan Potassium 25 mg PO DAILY 03/27/18 metFORMIN HCL [Metformin HCl] 500 mg PO HS 03/27/18 Albuterol 0.083% Nebulizer Gisselle [Ventolin 0.083% Nebulizer Soln -] 1 neb NEB Q6H 04/06/18 Albuterol Sulfate [Proair Hfa] 2 puff IH Q6H PRN 04/06/18 Fluticasone Propionate [Flovent Diskus] 100 mcg IH BID 04/06/18 Fluticasone/Salmeterol [Advair 250-50 Diskus] 1 puff IH Q12H 04/06/18 Gabapentin 300 mg PO TID 04/06/18 Nebulizer [Airs Disposable Nebulizer] 04/06/18 Aspirin [ASA -] 81 mg PO DAILY #30 tab.chew 04/07/18 Atorvastatin Ca [Lipitor] 80 mg PO HS 28 Days #28 tablet 04/07/18 Atorvastatin Ca [Lipitor] 80 mg PO HS 30 Days #30 tab 04/07/18 Furosemide [Lasix] 40 mg PO DAILY 28 Days #28 tablet 04/07/18 Insulin Glargine,Hum.rec.anlog [Basaglar Kwikpen U-100] 10 unit SQ DAILY #1 insuln.pen 04/07/18 This patient is new to me today: No Emergency Visit: Yes ED Registration Date: 03/28/18 Care time: The patient presented to the Emergency Department on the above date and was hospitalized for further evaluation of their emergent condition. Critical Care patient: No - Discharge Referral Referred to [facility] No
--- NOTE | 2018-04-07 16:19 | PN ---
Teaching Attending Note Name of Resident: Xu Vargas ATTENDING PHYSICIAN STATEMENT I saw and evaluated the patient. I reviewed the resident's note and discussed the case with the resident. I agree with the resident's findings and plan as documented. SUBJECTIVE: Feeling well, no complaints, SOB improved. No fever/chills. OBJECTIVE: Afebrile/Hemodynamically Stable. Last Vital Signs Temp Pulse Resp BP Pulse Ox 98.4 F 70 18 145/65 98 04/07/18 14:15 04/07/18 14:15 04/07/18 14:15 04/07/18 14:15 04/06/18 21:00 HEENT - Atraumatic. Normocephalic. Heart - S1, S2, RRR Lungs - clear to auscultation, reduced air entry at bases Abdomen - High BMI. Soft, non-tender. Bowel Sounds normal. Extremities - Edema +. Chronic venous stasis skin changes LEs. Neuro - AAO x 3. Tone/Power normal all extremities. Laboratory Results - last 24 hr 04/07/18 04/07/18 06:30 06:30 WBC 7.7 RBC 4.86 Hgb 13.1 Hct 41.4 MCV 85.1 MCH 27.0 MCHC 31.8 L RDW 17.5 H Plt Count 171 MPV 10.0 Sodium 139 Potassium 3.5 Chloride 96 L Carbon Dioxide 41 H Anion Gap 2 L BUN 13 Creatinine 0.5 L Creat Clearance w eGFR > 60 Random Glucose 146 H Calcium 8.8 Total Bilirubin 0.7 AST 18 ALT 30 Alkaline Phosphatase 64 Total Protein 7.0 Albumin 2.4 L Current Medications Generic Name Dose Route Start Last Admin Trade Name Wildq PRN Reason Stop Dose Admin Albuterol Sulfate 1 amp 03/31/18 11:29 Ventolin 0.083% Nebulizer Soln - NEB Q4H PRN SHORT OF BREATH/WHEEZING Albuterol/Ipratropium 1 amp 03/31/18 12:00 04/07/18 11:25 Duoneb - NEB 1 amp RQID DON[facility] Administration Aspirin 81 mg 04/01/18 10:00 04/07/18 10:10 Asa - PO 81 mg DAILY [facility] Administration Atorvastatin Calcium 80 mg 04/03/18 22:00 04/06/18 23:43 Lipitor - PO 80 mg HS DONTA Administration Enoxaparin Sodium 40 mg 04/01/18 10:00 04/07/18 10:10 Lovenox - SQ 40 mg DAILY [facility] Administration Furosemide 40 mg 04/07/18 10:00 04/07/18 10:10 Lasix - PO 40 mg DAILY [facility] Administration Insulin Aspart 1 vial 03/31/18 16:30 04/07/18 12:00 Novolog Vial Sliding Scale - SQ 2 units ACHS [facility] Administration Protocol ASSESSMENT AND PLAN: 67 year old female with a history of morbid obesity, CRF sec to COPD on Home O2 , LEONIDES, DM 2, HTN, HLD who presented to the ED with worsening SOB, developed respiratory failure requiring Intubation, mechanical ventilation, and ICU admission. 1. Acute on chronic hypoxic and hypercapnic respiratory failure secondary to acute exacerbation of COPD, acute on chronic diastolic heart failure, LEONIDES, OHS Intubated/Extubated 03/30 Urine negative for legionella antigens Flu negative, RSV positive. Received adequate course of Ceftriaxone and Azithromycin Continue DuoNeb, albuterol prn. Lasix decreased to 40mg daily - importance of compliance with lasix as out- patient explained to patient. Supplemental O2 to keep SpO2 > 90% Medically and Hemodynamically Stable for discharge home with supplemental O2 and VNS services. 2. Acute NSTEMI TropI max 1.12 Echo shows normal LV, normal LVEF, no wall motion abnormalities, impaired relaxation, mild PI Continue Aspirin and Lipitor. Stress MIBI 04/06 negative Cardiology follow up on discharge. 3. E. coli UTI Received adequate course of cephalosporin. Afebrile, hemodynamically stable, asymptomatic. 4. DM 2 - to resume Metformin and Levemir at reduced dose at home with up- titration as required. 5. HTN - Previously on Losartan, held on admission. BP currently borderline, will continue to hold for now. 6. HLD - continue Lipitor. Medically optimized for discharge. Gait stable with walker. VNS instated.
== END 2018-04-07 19:36 | disposition home health service (06) | DRG 208 ==
LOC: JER 19:41 → JERBED 03-28 02:29 → JICU 03-28 03:48 → J8W 03-31 19:52
PROVIDERS: ADMIT Internal Medicine
PROC: 5A1945Z Respiratory Ventilation, 24-96 Consecutive Hours (ICD-10-PCS; principal; 2018-03-27)
PROC: 0BH17EZ Insertion of Endotracheal Airway into Trachea, Via Natural or Artificial Opening (ICD-10-PCS; 2018-03-27)
DX: J96.02 Acute respiratory failure with hypercapnia (principal); I21.4 Non-ST elevation (NSTEMI) myocardial infarction; J18.9 Pneumonia, unspecified organism; I50.33 Acute on chronic diastolic (congestive) heart failure; G92 Toxic encephalopathy; J44.1 Chronic obstructive pulmonary disease with (acute) exacerbation; Z68.42 Body mass index [BMI] 45.0-49.9, adult; E87.2 Acidosis; N39.0 Urinary tract infection, site not specified; J21.0 Acute bronchiolitis due to respiratory syncytial virus; L03.116 Cellulitis of left lower limb; J96.01 Acute respiratory failure with hypoxia; E78.5 Hyperlipidemia, unspecified; E11.9 Type 2 diabetes mellitus without complications; I11.0 Hypertensive heart disease with heart failure; I50.9 Heart failure, unspecified; E66.01 Morbid (severe) obesity due to excess calories; Z99.81 Dependence on supplemental oxygen; G47.33 Obstructive sleep apnea (adult) (pediatric); Z79.4 Long term (current) use of insulin; Z91.19 Patient's noncompliance with other medical treatment and regimen; E83.42 Hypomagnesemia; B96.20 Unspecified Escherichia coli [E. coli] as the cause of diseases classified elsewhere
CPT/HCPCS: 36415; 36600; 71045-TC-FY; 78452-TC; 80048; 80053; 80061; 81003; 81015; 82375; 82550; 82553; 82803; 82962; 83036; 83050; 83721; 83735; 83880; 84100; 84484; 85025; 85027; 85730; 87040; 87070; 87086; 87186; 87205; 87804; 87807; 87899; 90688; 93005; 93010; 93017; 93306-TC; 93970-TC; 94002; 94640; 94761; 97116-GP; 97161-GP; 99285-25; A9502; G0008; J1644; J2785

== ENCOUNTER 2019-01-25 11:44 | Inpatient (IN) | payer MEDICARE, OTHER ==
[2019-01-25] MEDS ORDERED: FUROSEMIDE 40 MG/4 ML INJECTABLE VIAL IVPUSH ONE (12:41)
[2019-01-25] MEDS ORDERED: FUROSEMIDE 40 MG/4 ML INJECTABLE VIAL ONE (12:52)
[2019-01-25] MEDS ORDERED: ALBUTEROL SO4 0.083% IH SOL 2.5 MG/3 ML VIAL.NEB. NEB ONE (12:52)
--- NOTE | 2019-01-25 12:59 | PDOC ---
Attending Attestation - Resident Resident Name: LuisaJulianna - ED Attending Attestation I have performed the following: I have examined & evaluated the patient, The case was reviewed & discussed with the resident, I agree w/resident's findings & plan - HPI HPI: 01/25/19 12:54 68-year-old female with history of morbid obesity, COPD on home oxygen at 2 L, diastolic CHF (echo 04/10 with normal EF) presents sent in by PCP Dr. Valenzuela for volume overload and increased work of breathing. Patient reports increasing dyspnea over the last 3 days, also reports having difficulty urinating and self deseeding her Lasix. Denies any fevers or chills or chest pain or pressure, denies palpitations. Worsening orthopnea over the last 72 hours, has required diuresis in the past. - Physicial Exam PE: 01/25/19 12:55 Afebrile, O2 sat drops to upper 70s on room air, low 80s on nasal cannula, goes up to 93% on nonrebreather. Patient is asleep but easily arousable to verbal, conversant and oriented Tachypnea, increased work of breathing with accessory muscle use, bilateral crackles to midlung field with decreased breath sounds at the bases, heart is otherwise regular with systolic ejection murmur. Abdomen is protuberant but soft and nondistended and nontender 2+ pitting edema bilaterally to the thighs - Critical Care Time Total Critical Care Time: 130 Critical Care Statement: The care of this patient involved high complexity decision making to prevent further life threatening deterioration of the patient 's condition and/or to evaluate & treat vital organ system(s) failure or risk of failure. - Medical Decision Making 01/25/19 12:56 68-year-old female with history of COPD and CHF presents with acute hypoxic respiratory distress, likely CHF/volume overload/acute pulmonary edema possibly with a component of hypercarbia and COPD. Afebrile, less likely infectious, more likely volume overload secondary to failed diuresis and medication noncompliance. Seen upon arrival, supplemental oxygen applied, respiratory called for BiPAP for pressure support with improved oxygenation Labs, urinalysis EKG, chest x-ray IV diuresis Will need admission, ABG, close monitoring 01/25/19 15:04 abg shows pH 7.22 with pco2 >70. elevated wbc, chem hemolyzed and being repeated. koenig placed with minimal urine output. ? ARF. CXR without acute infiltrate. pt became more somnolent despite bipap, responsive only to painful stimuli, will need intubation for airway protection and hypercarbic respiratory failure. 01/25/19 15:57 initial DL difficult to visualize, intubated using glidescope without complication. maintained o2 sats and HD status. ICU consult/admission, CXR, repeat ABG. empiric abx Heart Score/ECG Review #1 ECG reviewed & interpreted by me at: 12:09 General ECG Interpretation: Sinus Rhythm, Normal Rate (101), Normal Intervals ( qtc 427), No acute ischemic changes Compared to previous ECG there are: No significant change (c/w 04/10, q wave V1)
[2019-01-25] MEDS: ALBUTEROL SO4 0.083% IH SOL 2.5 MG/3 ML VIAL.NEB. NEB PRN ×3 (13:28→14:05)
--- NOTE | 2019-01-25 13:30 | PDOC ---
History of Present Illness - General Chief Complaint: Shortness of Breath Stated Complaint: SOB/SENT BY DR RUBALCAVA Time Seen by Provider: 01/25/19 12:24 History Source: Patient Exam Limitations: No Limitations - History of Present Illness Initial Comments: 01/25/19 12:54 68YOF with h/o morbid obesity, COPD (on 2LPM home O2), CHF, LEONIDES (non-adherent to CPAP), NSTEMI, DM, HTN, and HLD, who presents from her PCP Dr. Rubalcava's office for worsening SOB for the past few days, hypoxia on RA, orthopnea, also BLE swelling, all worsening for the past 3 days. She had been admitted here to [facility] for ~2 weeks in March for acute hypoxic respiratory failure & CHF exacerbation. Sees Dr. Jay and Dr. Paige, normal EF on last echocardiogram from admission in 03/2018. Past History - Past Medical History Allergies/Adverse Reactions: Allergies Allergy/AdvReac Type Severity Reaction Status Date / Time No Known Allergies Allergy Verified 01/25/19 11:53 Home Medications: Ambulatory Orders Albuterol Sulfate Inhaler - [Ventolin HFA Inhaler -] 2 inh PO Q4H PRN 03/27/18 Losartan Potassium 25 mg PO DAILY 03/27/18 metFORMIN HCL [Metformin HCl] 500 mg PO HS 03/27/18 Albuterol 0.083% Nebulizer Gisselle [Ventolin 0.083% Nebulizer Soln -] 1 neb NEB Q6H 04/06/18 Albuterol Sulfate [Proair Hfa] 2 puff IH Q6H PRN 04/06/18 Fluticasone Propionate [Flovent Diskus] 110 mcg IH BID 04/06/18 Fluticasone/Salmeterol [Advair 250-50 Diskus] 1 puff IH Q12H 04/06/18 Gabapentin 600 mg PO TID 04/06/18 Nebulizer [Airs Disposable Nebulizer] 04/06/18 Alcohol Antiseptic Pads [Alcohol Prep Pads] 1 each TP ASDIR #1 box 04/07/18 Aspirin [ASA -] 81 mg PO DAILY #30 tab.chew 04/07/18 Atorvastatin Ca [Lipitor] 80 mg PO HS 28 Days #28 tablet 04/07/18 Atorvastatin Ca [Lipitor] 80 mg PO HS 30 Days #30 tab 04/07/18 Furosemide [Lasix] 40 mg PO DAILY 28 Days #28 tablet 04/07/18 Insulin Glargine,Hum.rec.anlog [Lisandroaglbutch Rickspen U-100] 10 unit SQ DAILY #1 insuln.pen 04/07/18 Miscellaneous Medical Supply [Glucometer Device] 1 each .ROUTE ASDIR #1 kit Miscellaneous Medical Supply [Glucometer Test Strips #50] 1 each .ROUTE ASDIR # 1 box 04/07/18 Miscellaneous Medical Supply [Lancets] 1 each .ROUTE ASDIR #1 box 04/07/18 Asthma: Yes Cardiac Disorders: Yes (CHF) COPD: Yes CHF: Yes Diabetes: Yes HTN: Yes Hypercholesterolemia: Yes - Immunization History Immunization Up to Date: Yes - Psycho Social/Smoking Cessation Hx Smoking History: Former smoker Have you smoked in the past 12 months: No Information on smoking cessation initiated: No Hx Alcohol Use: No Drug/Substance Use Hx: No Review of Systems - Review of Systems Able to Perform ROS?: Yes Comments:: 01/25/19 13:35 GEN: generalized weakness, malaise, no fever, chills, night sweats, or unintentional weight change HEENT: no ear pain, congestion, sore throat, rhinorrhea, nosebleed, vision change, or eye pain CV: edema, no chest pain, palpitations, lightheadedness, or syncope RESP: wheezing, SOB, orthopnea GI: no abdominal pain, nausea, vomiting, diarrhea, constipation, appetite change , or white/black/bloody stool : no dysuria, hematuria, frequency, incontinence, retention, pruritis, bleeding, or discharge MSK: no muscle weakness or pain, no muscle wasting, no joint swelling or pain NEURO: no headache, seizure, vertigo, imbalance, numbness, tingling, focal weakness, or difficulty walking/talking PSYCH: no insomnia, behavior change, SI, HI, or substance use SKIN: no prutitis, excessive dryness, jaundice, rash, cuts, or unexplained bruises ROS otherwise negative except as noted in HPI *Physical Exam - Vital Signs Last Vital Signs Temp Pulse Resp BP Pulse Ox 98.7 F 97 H 18 109/87 89 L 01/25/19 11:48 01/25/19 11:48 01/25/19 11:48 01/25/19 11:48 01/25/19 11:48 - Physical Exam Comments: 01/25/19 13:38 GENERAL: appears tired, speaking 3-word sentences, morbid obesity noted, A/Ox4, answers questions appropriately HEENT: PERRLA, EOMI, moist mucous membranes NECK/BACK: no midline ttp, no spinal stepoff or deformity, no hematoma, full ROM , neck supple CARDIOVASCULAR: regular rate/rhythm, normal S1S2, no MGR, strong peripheral pulses, capillary refill <2 seconds, extremities wwp, 2+ pitting edema BLE LUNGS/RESPIRATORY: shallow breathing and tachypneic, decreased breath sounds with L>R, poor air movement but faint diffuse wheezes, bilateral crackles GI/ABDOMEN: obese, symmetric [id number], normoactive BS, soft, no ttp, no midline pulsatile masses : no CVA tenderness EXTREMITIES: no muscle atrophy, no acute deformity SKIN: warm and dry, no pallor, no jaundice, no rash, no bruising, no skin breakdown, no cuts, no lesions NEUROLOGICAL: GCS 15, CN II-XII grossly intact, 5/5 strength proximally and distally, no facial droop Procedures - Intubation Intubation Method: orotracheal Blade used: Mac Tube Size (Fr): 7.5 Medications: Etomidate, Rocuronium Heart Score/ECG Review #1 01/25/19 12:09 Sinus tach, rate 101, normal axis, normal intervals, mild right atrial enlargement, right heart strain pattern, no other ischemic ST-T changes ED Treatment Course - LABORATORY CBC & Chemistry Diagram: 01/25/19 13:23 01/25/19 14:44 Medical Decision Making - Critical Care Time Total Critical Care Time (minutes): 130 Critical Care Statement: The care of this patient involved high complexity decision making to prevent further life threatening deterioration of the patient 's condition and/or to evaluate & treat vital organ system(s) failure or risk of failure. - Medical Decision Making 01/25/19 13:33 68YOF, medically complex and with morbid obesity and LEONIDES, p/w SOB, malaise, same as their prior CHF/COPD/PNA. Initial Vital Signs Temp Pulse Resp BP Pulse Ox 98.7 F 97 H 18 109/87 89 L 01/25/19 11:45 01/25/19 11:45 01/25/19 11:45 01/25/19 11:45 01/25/19 11:45 Exam: As noted in Physical Exam section. DDX IBNLT: CHF, pulmonary edema, COPD, asthma, other lung disease, PNA/ bronchitis, anemia, ACS, pericarditis, tamponade, AD, PE, PTX, allergic reaction , malignancy (e.g. causing pericardial effusion or vascular shunt), other infection, pulmonary HTN, etc. W/U ordered: Labs as noted below, EKG CXR TX ordered: Lasix IV push, O2, BiPAP, Pt positioned with head of bed up EKG: Reviewed; results as noted in ECG Review section. CXR: LABS 01/25/19 15:12 The patient is now somnolent and difficult to arouse. Vitals stable except SpO2 down to 93% on BiPAP. She requires RSI d/t AMS and borderline unconsciousness, ABG hypercapnea and acidosis with normal O2. The Pt is unsafe for discharge at this time. They require further hospital observation, workup, and treatment. Pt needs IV meds 2/2 likely bowel edema as PO medications likely less effective. Lasix IV was ordered and given shortly after patient arrived. Discharge - Discharge Information Problems reviewed: Yes Clinical Impression/Diagnosis: COPD exacerbation Hypercapnic respiratory failure Qualifiers: Chronicity: unspecified Qualified Code(s): J96.92 - Respiratory failure, unspecified with hypercapnia CHF (congestive heart failure) Qualifiers: Heart failure type: unspecified Heart failure chronicity: unspecified Qualified Code(s): I50.9 - Heart failure, unspecified Pneumonia Qualifiers: Aspiration pneumonia type: unspecified Laterality: unspecified laterality Lung location: unspecified part of lung Condition: Guarded - Admission Yes - Follow up/Referral Referrals: Niko Rubalcava MD [Primary Care Provider] - - Patient Discharge Instructions - Post Discharge Activity
[2019-01-25 13:40] LABS: BASO % 0.6 % (0-2.0); EOS % 0.1 % (0-4.5); HEMATOCRIT 44.7 % (32.4-45.2); HEMOGLOBIN 13.9 GM/dL (10.7-15.3); LYMPH % 7.1 % (8-40); MCH 27.2 pg (25.7-33.7); MCHC 31.2 g/dl (32.0-36.0); MEAN CELL VOLUME 87.1 fl (80-96); MEAN PLT VOLUME 10.9 fl (7.5-11.1); NEUT % 84.2 % (42.8-82.8); PLATELET COUNT 204 K/MM3 (134-434); RBC 5.12 M/mm3 (3.60-5.2); RDW 16.3 % (11.6-15.6); WHITE BLOOD COUNT 15.1 K/mm3 (4.0-10.0)
[2019-01-25 14:24] LABS: PLATELET ESTIMATE ADEQUATE
[2019-01-25 14:48] LABS: ARTERIAL BLOOD GAS BASE EXCESS 0.4 meq/l (-2-2); ARTERIAL BLOOD GAS PO2 96.4 mmHg (80-100); ARTERIAL BLOOD GAS pH 7.22 (7.35-7.45)
[2019-01-25 14:49] LABS: ALLENS TEST POSITIVE
[2019-01-25 14:50] LABS: ARTERIAL BLOOD GAS PCO2 76.5 mmHg (35-45)
[2019-01-25] MEDS ORDERED: methylPREDNISolone NA SUCC 125 MG/2 ML VIAL IVPUSH ONE (14:53)
[2019-01-25] MEDS ORDERED: methylPREDNISolone NA SUCC 125 MG/2 ML VIAL ONE (14:58)
--- NOTE | 2019-01-25 15:00 | EKG ---
Test Reason : Blood Pressure : / mmHG Vent. Rate : 101 BPM Atrial Rate : 101 BPM P-R Int : 140 ms QRS Dur : 086 ms QT Int : 330 ms P-R-T Axes : 065 065 028 degrees QTc Int : 427 ms SINUS TACHYCARDIA CANNOT RULE OUT ANTERIOR INFARCT , AGE UNDETERMINED ABNORMAL ECG RSR' OR QR PATTERN IN V1 SUGGESTS RIGHT VENTRICULAR CONDUCTION DELAY WHEN COMPARED WITH ECG OF 28-MAR-2018 08:36, NONSPECIFIC T WAVE ABNORMALITY, IMPROVED IN INFERIOR LEADS NONSPECIFIC T WAVE ABNORMALITY HAS REPLACED INVERTED T WAVES IN ANTERIOR LEADS Confirmed by MD Marcus, Jamari ([id number]) on 01/25/2019 3:00:09 PM Referred By: Confirmed By:Jamari Velazquez MD
[2019-01-25] MEDS ORDERED: RAPID SEQUENCE INTUBATION KIT NR ONE ×2 (15:20→15:24)
[2019-01-25 15:43] LABS: ALBUMIN 2.8 g/dl (3.4-5.0); BILIRUBIN,TOTAL 0.8 mg/dL (0.2-1); BLOOD UREA NITROGEN 29.6 mg/dL (7-18); CALCIUM 8.5 mg/dL (8.5-10.1); CREATININE 1.4 mg/dL (0.55-1.3); MAGNESIUM 2.1 mg/dL (1.8-2.4); TOT PROT 7.2 g/dl (6.4-8.2)
[2019-01-25] MEDS ORDERED: CEFTRIAXONE 1,000 MG in DEXTROSE 5%-WATER - 50 ML IVPB ONE (15:59)
[2019-01-25] MEDS ORDERED: VANCOMYCIN HCL 1,500 MG in DEXTROSE 5%-WATER - 500 ML IVPB ONE (16:01)
[2019-01-25] MEDS ORDERED: ROCURONIUM BROMIDE 50 MG/5 ML VIAL IVPUSH ONE (16:23)
[2019-01-25] MEDS ORDERED: ETOMIDATE 40 MG/20 ML VIAL IVPUSH ONE (16:23)
--- NOTE | 2019-01-25 16:29 | CONSULT ---
Consult Consult Specialty:: ICU - History of Present Illness History of Present Illness: 68F with a PMH of h/o morbid obesity, COPD (on 2LPM home O2), CHF, LEONIDES (non- adherent to CPAP), NSTEMI, DM, HTN, and HLD who presented to the ER with worsening GAONA, SOB, and b/l LE edema. Pt unable to provide history as she is intubated and sedated. Daughter at bedside. ER Course notable for: worsening AMS, hypercapneic resp failure requiring intubation, trop 0.4, BNP 6700, pCO2 on ABG 76.5 w/ pH of 7.22, new JUANCARLOS (Cr 1.4) . - Alcohol/Substance Use Hx Alcohol Use: No - Smoking History Smoking history: Former smoker Have you smoked in the past 12 months: No Home Medications - Allergies Allergies/Adverse Reactions: Allergies Allergy/AdvReac Type Severity Reaction Status Date / Time No Known Allergies Allergy Verified 01/25/19 11:53 - Home Medications Home Medications: Ambulatory Orders Albuterol Sulfate Inhaler - [Ventolin HFA Inhaler -] 2 inh PO Q4H PRN 03/27/18 Losartan Potassium 25 mg PO DAILY 03/27/18 metFORMIN HCL [Metformin HCl] 500 mg PO HS 03/27/18 Albuterol 0.083% Nebulizer Gisselle [Ventolin 0.083% Nebulizer Soln -] 1 neb NEB Q6H 04/06/18 Albuterol Sulfate [Proair Hfa] 2 puff IH Q6H PRN 04/06/18 Fluticasone Propionate [Flovent Diskus] 110 mcg IH BID 04/06/18 Fluticasone/Salmeterol [Advair 250-50 Diskus] 1 puff IH Q12H 04/06/18 Gabapentin 600 mg PO TID 04/06/18 Nebulizer [Airs Disposable Nebulizer] 04/06/18 Alcohol Antiseptic Pads [Alcohol Prep Pads] 1 each TP ASDIR #1 box 04/07/18 Aspirin [ASA -] 81 mg PO DAILY #30 tab.chew 04/07/18 Atorvastatin Ca [Lipitor] 80 mg PO HS 28 Days #28 tablet 04/07/18 Atorvastatin Ca [Lipitor] 80 mg PO HS 30 Days #30 tab 04/07/18 Furosemide [Lasix] 40 mg PO DAILY 28 Days #28 tablet 04/07/18 Insulin Glargine,Hum.rec.anlog [Sherly Mendez U-100] 10 unit SQ DAILY #1 insuln.pen 04/07/18 Miscellaneous Medical Supply [Glucometer Device] 1 each .ROUTE ASDIR #1 kit Miscellaneous Medical Supply [Glucometer Test Strips #50] 1 each .ROUTE ASDIR # 1 box 04/07/18 Miscellaneous Medical Supply [Lancets] 1 each .ROUTE ASDIR #1 box 04/07/18 Review of Systems Unable to obtain ROS, reason: Intubated and sedated Physical Exam Vital Signs: Vital Signs Temperature 98.7 F 01/25/19 11:48 Pulse Rate 99 H 01/25/19 15:30 Respiratory Rate 16 01/25/19 15:30 Blood Pressure 109/87 01/25/19 11:48 O2 Sat by Pulse Oximetry (%) 90 L 01/25/19 15:30 Constitutional: Yes: No Distress, Obese Neck: Yes: Trachea Midline Cardiovascular: Yes: Regular Rate and Rhythm, S1, S2 Respiratory: Yes: Mechanically Ventilated, Rales, Other (Diffuse crackles) Gastrointestinal: Yes: Soft, Abdomen, Obese Extremities: No: Cold, Cool, Cyanosis Edema: LLE: 2+, RLE: 2+ Labs: CBC, BMP 01/25/19 13:23 01/25/19 14:44 Assessment/Plan 68F with a PMH of h/o morbid obesity, COPD (on 2LPM home O2), CHF, LEONIDES (non- adherent to CPAP), NSTEMI, DM, HTN, and HLD who presents with hypercapniec respiratory failure, CHF exacerbation, and questionable PNA. Cards CHF exacerbation with troponin - BNP 6753 - Trop 0.42, pending repeat - Lasix 40mg IV given in ED - Watch I&O's - Currently hemodynamically stable - EKG unchanged c/w prior Pulm Hypercapneic respiratory failure - ABG 7.22/76.5/96.4/30.2 - Intubated without sedation but not overbreathing the vent; PEEP 5; FiO2 60%; Rate 16 - Questionable PNA on CXR - CXR shows worsening congestion with RLL notably more congested - Follow ABG's - Requiring 80% FiO2 to maintain normoxia per puls ox despite normal O2 on ABG ID - WBC 15.1 concerning for infectious process - Vanc and rocephin added empirically by ER - Follow UCx and Blood Cx and tailor abx as needed Nephro/ New JUANCARLOS - Cr 1.4 from 0.5 on prior admissions - Lasix 40mg - Hold IVF as pt is currently in a volume overloaded state Heme/Onc N/A Neuro - Intubated - Fentanyl ggt GI - PPX Dispo - Monitor in ICU
[2019-01-25] MEDS ORDERED: FENTANYL INJECTION 500 MCG in DEXTROSE 5%-WATER - 90 ML IVPB SCH (16:45)
--- NOTE | 2019-01-25 16:57 | HP ---
Admitting History and Physical - Primary Care Physician PCP: Niko Valenzuela - Admission Chief Complaint: Respiratory Failure History of Present Illness: Patient is a 68 y/o female with past medical history of Morbid Obesity, COPD on home O2, CHF, LEONIDES, NSTEMI, DM, HTN, and HLD. Patient presented from PCP office for worsening SOB. On arrival to ED patient was hypoxic with SpO2 76% on RA. Patient eventually placed on Bipap and O2 improve to 93% but she then had change in mental status where she became obtunded and only responded to painful stimuli. Patient was intubated in ER and is now mechanically ventilated. Daughter at bedside stated that from 1 week ago patient developed productive cough but was refusing to go to PCP office to be seen. History Source: Family Member, Medical Record Limitations to Obtaining History: Intubated - Past Medical History Cardiovascular: Yes: CHF, HTN, Hyperlipdemia, LA Pulmonary: Yes: COPD, O2 Dependent, Sleep Apnea Endocrine: Yes: Diabetes Mellitus - Smoking History Smoking history: Former smoker Have you smoked in the past 12 months: No - Alcohol/Substance Use Hx Alcohol Use: No - Social History Usual Living Arrangement: Yes: Alone History of Recent Travel: No Home Medications - Allergies Allergies/Adverse Reactions: Allergies Allergy/AdvReac Type Severity Reaction Status Date / Time No Known Allergies Allergy Verified 01/25/19 11:53 - Home Medications Home Medications: Ambulatory Orders Albuterol Sulfate Inhaler - [Ventolin HFA Inhaler -] 2 inh PO Q4H PRN 03/27/18 Losartan Potassium 25 mg PO DAILY 03/27/18 metFORMIN HCL [Metformin HCl] 500 mg PO HS 03/27/18 Albuterol 0.083% Nebulizer Gisselle [Ventolin 0.083% Nebulizer Soln -] 1 neb NEB Q6H 04/06/18 Albuterol Sulfate [Proair Hfa] 2 puff IH Q6H PRN 04/06/18 Fluticasone Propionate [Flovent Diskus] 110 mcg IH BID 04/06/18 Fluticasone/Salmeterol [Advair 250-50 Diskus] 1 puff IH Q12H 04/06/18 Gabapentin 600 mg PO TID 04/06/18 Nebulizer [Airs Disposable Nebulizer] 04/06/18 Alcohol Antiseptic Pads [Alcohol Prep Pads] 1 each TP ASDIR #1 box 04/07/18 Aspirin [ASA -] 81 mg PO DAILY #30 tab.chew 04/07/18 Atorvastatin Ca [Lipitor] 80 mg PO HS 28 Days #28 tablet 04/07/18 Atorvastatin Ca [Lipitor] 80 mg PO HS 30 Days #30 tab 04/07/18 Furosemide [Lasix] 40 mg PO DAILY 28 Days #28 tablet 04/07/18 Insulin Glargine,Hum.rec.anlog [Lisandroaglbutch Mendez U-100] 10 unit SQ DAILY #1 insuln.pen 04/07/18 Miscellaneous Medical Supply [Glucometer Device] 1 each .ROUTE ASDIR #1 kit Miscellaneous Medical Supply [Glucometer Test Strips #50] 1 each .ROUTE ASDIR # 1 box 04/07/18 Miscellaneous Medical Supply [Lancets] 1 each .ROUTE ASDIR #1 box 04/07/18 Review of Systems Unable to obtain ROS, reason: pt intubated Physical Examination Vital Signs: Vital Signs Temperature 98.7 F 01/25/19 11:48 Pulse Rate 99 H 01/25/19 15:30 Respiratory Rate 16 01/25/19 15:30 Blood Pressure 109/87 01/25/19 11:48 O2 Sat by Pulse Oximetry (%) 90 L 01/25/19 15:30 Constitutional: Yes: No Distress, Obese Eyes: Yes: Conjunctiva Clear HENT: Yes: Atraumatic Cardiovascular: Yes: Regular Rate and Rhythm Respiratory: Yes: Mechanically Ventilated, Rhonchi Gastrointestinal: Yes: Soft, Abdomen, Obese, Hypoactive Bowel Sounds Renal/: Yes: Villalba Present Musculoskeletal: Yes: Muscle Weakness Extremities: Yes: WNL Edema: Yes Edema: LLE: 1+, RLE: 1+ Neurological: Yes: Other (sedated) Labs: CBC, BMP 01/25/19 13:23 01/25/19 14:44 Imaging - Results Chest X-ray: Report Reviewed Problem List - Problems (1) COPD exacerbation Assessment/Plan: -Pulm consult -mechanically ventilated -bronchodilators -keep SpO2 >90% Code(s): J44.1 - CHRONIC OBSTRUCTIVE PULMONARY DISEASE W (ACUTE) EXACERBATION (2) Acute on chronic respiratory failure with hypoxia and hypercapnia Assessment/Plan: -Pulm consult -ICU monitoring -mechanically ventilated -keep SpO2 >90% -ABGs Code(s): J96.21 - ACUTE AND CHRONIC RESPIRATORY FAILURE WITH HYPOXIA; J96.22 - ACUTE AND CHRONIC RESPIRATORY FAILURE WITH HYPERCAPNIA (3) CHF exacerbation Assessment/Plan: -Cardiology consult -tele monitoring -BNP 6753 -daily weights -strict I&Os -Furosemide in ER Code(s): I50.9 - HEART FAILURE, UNSPECIFIED Qualifiers: Heart failure type: unspecified Qualified Code(s): I50.9 - Heart failure, unspecified (4) Diabetes Assessment/Plan: -BGM ACHS -ISS -HgA1c -Metformin on hold while intubated Code(s): E11.9 - TYPE 2 DIABETES MELLITUS WITHOUT COMPLICATIONS (5) HTN (hypertension) Assessment/Plan: -Losartan on hold while intubated -Lopressor 5mg IVP q4h prn for systolic BP >160 and/or diastolic BP >80 -monitor BP Code(s): I10 - ESSENTIAL (PRIMARY) HYPERTENSION (6) HLD (hyperlipidemia) Assessment/Plan: -Atorvastatin on hold while intubated Code(s): E78.5 - HYPERLIPIDEMIA, UNSPECIFIED (7) Leukocytosis Assessment/Plan: -WBC 15.1 -afebrile -ID consult -Vancomycin andCeftriaxone in ER -LA ordered -BC and UC pending -CXR shows no pneumothorax, pleural effusion, no vascular congestive changes, no pulmonary infiltrates Code(s): D72.829 - ELEVATED WHITE BLOOD CELL COUNT, UNSPECIFIED (8) Elevated troponin Assessment/Plan: -troponin 0.42, repeat ordered -Tele monitoring -Cardiology consult Code(s): R79.89 - OTHER SPECIFIED ABNORMAL FINDINGS OF BLOOD CHEMISTRY Assessment/Plan see problem list dvt ppx
[2019-01-25] MEDS ORDERED: VANCOMYCIN 500 MG VIAL (RESTRICTED TO ID ONLY) ONE (16:59)
[2019-01-25] MEDS ORDERED: VANCOMYCIN 1 GRAM (PRE-DOCKED) 1,000 MG/250 ML BAG IVPB ONE (16:59)
[2019-01-25] MEDS ORDERED: CEFTRIAXONE 1 GM/50 ML BAG ONE (17:00)
[2019-01-25] MEDS ORDERED: METOPROLOL TARTRATE 5 MG/5 ML VIAL IVPUSH PRN (17:08)
[2019-01-25] MEDS ORDERED: MIDAZOLAM HCL 2 MG/2 ML SINGLE DOSE VIAL IVPUSH ONE ×2 (17:14→18:13)
[2019-01-25] MEDS ORDERED: MIDAZOLAM HCL 2 MG/2 ML SINGLE DOSE VIAL ONE ×2 (17:15→18:12)
--- NOTE | 2019-01-25 17:19 | CONSULT ---
Consultation: REQUESTING PROVIDER: Turner Harry MENTAL HEALTH NURSE CONSULT REQUEST: We have been asked to medically evaluate this patient for JUANCARLOS. HISTORY OF PRESENT ILLNESS: Pt. s a 68 y.o. F w/ PMHx. of MO, COPD (on 2.5L NC @ home), LEONIDES (on home CPAP), DM2, HTN and HLD presents for worsening shortness of breath at the request of her daughter. Per daughter at bedside who does not live with her, Pt. has [employer] from 9am-2pm, Pt. had been having worsening shortness of breath with productive sputum for "awhile" now and was refusing to go to the hospital. Pt. was also complaining of lower abdominal pain per daughter and RN prior to intubation. Per chart review Pt. was last admitted in March for similar symptoms requiring intubation 2/2 poor compliance with Lasix and with CPAP. Last Echo in March showed and EF of 60-65% with mildly impaired relaxation. Per daughter Pt. did not have any fevers at home and denied any other acute complaints however was using OTC NSAIDs to treat joint and back pain. REVIEW OF SYSTEMS: Unable to obtain as Pt. is intubated PHYSICAL EXAMINATION Vital Signs - 24 hr 01/25/19 01/25/19 01/25/19 11:45 11:48 12:00 Temperature 98.7 F 98.7 F Pulse Rate 97 H 97 H 101 H Respiratory 18 18 Rate Blood Pressure 109/87 109/87 O2 Sat by Pulse 89 L 89 L 94 L Oximetry (%) 01/25/19 01/25/19 12:50 15:30 Temperature Pulse Rate 99 H Respiratory 16 Rate Blood Pressure O2 Sat by Pulse 93 L 90 L Oximetry (%) GENERAL: Intubated, in mild respiratory distress on mechanical ventilation, opens eyes on command HEAD: Normal with no signs of trauma. EYES: extraocular movements intact, sclera anicteric, conjunctiva clear. EARS, NOSE, THROAT: Ears normal, nares patent, moist mucous membranes. NECK: Normal range of motion, supple without lymphadenopathy, JVD, or masses. LUNGS: Difficult to ascertain breath sounds because of body habitus and mechanical ventilation. BS decreased and coarse bilaterally and anteriorly HEART: Regular rate and rhythm, normal S1 and S2 without murmur ABDOMEN: Soft, RLQ and LLQ tenderness, not distended, normoactive bowel sounds, no masses. MUSCULOSKELETAL: Normal range of motion at all joints. No bony deformities or tenderness. UPPER EXTREMITIES: 2+ radial pulses, warm, well-perfused. No cyanosis. No clubbing. Cap refill <2 seconds. No peripheral edema. LOWER EXTREMITIES: 2+ dorsal pedal pulses, warm, well-perfused. No calf tenderness. 1+ peripheral edema. NEUROLOGICAL: Opens eyes on command PSYCHIATRIC: Cooperative. Appropriate mood and affect. SKIN: Warm, dry, normal turgor Laboratory Results - last 24 hr 01/25/19 01/25/19 01/25/19 13:23 13:23 13:23 WBC 15.1 H RBC 5.12 Hgb 13.9 Hct 44.7 MCV 87.1 MCH 27.2 MCHC 31.2 L RDW 16.3 H Plt Count 204 MPV 10.9 Absolute Neuts (auto) 12.7 H Neutrophils % 84.2 H Lymphocytes % 7.1 L D Monocytes % 8.0 Eosinophils % 0.1 D Basophils % 0.6 Nucleated RBC % 0 Platelet Estimate Adequate Platelet Comment Anticoagulation Therapy Puncture Site ABG pH ABG pCO2 at Pt Temp ABG pO2 at Pt Temp ABG HCO3 ABG O2 Sat (Measured) ABG O2 Content ABG Base Excess Dwayne Test Carboxyhemoglobin Methemoglobin O2 Delivery Device Oxygen Flow Rate Vent Mode Vent Rate Mechanical Rate Pressure Support Vent Sodium Cancelled Potassium Cancelled Chloride Cancelled Carbon Dioxide Cancelled Anion Gap Cancelled BUN Cancelled Creatinine Cancelled Est GFR (CKD-EPI)AfAm Cancelled Est GFR (CKD-EPI)NonAf Cancelled Random Glucose Cancelled Calcium Cancelled Magnesium Cancelled Total Bilirubin Cancelled AST Cancelled ALT Cancelled Alkaline Phosphatase Cancelled Creatine Kinase Cancelled Creatine Kinase Index CK-MB (CK-2) Troponin I Cancelled B-Natriuretic Peptide 6753.7 H Total Protein Cancelled Albumin Cancelled 01/25/19 01/25/19 14:15 14:44 WBC RBC Hgb Hct MCV MCH MCHC RDW Plt Count MPV Absolute Neuts (auto) Neutrophils % Lymphocytes % Monocytes % Eosinophils % Basophils % Nucleated RBC % Platelet Estimate Platelet Comment Anticoagulation Therapy No Result Required. Puncture Site Right radial ABG pH 7.22 L ABG pCO2 at Pt Temp 76.5 H* ABG pO2 at Pt Temp 96.4 ABG HCO3 30.2 H ABG O2 Sat (Measured) 96.0 ABG O2 Content 18.6 ABG Base Excess 0.4 Dwayne Test Positive Carboxyhemoglobin 2.0 Methemoglobin < 1.0 O2 Delivery Device No Result Required. Oxygen Flow Rate Yes Vent Mode No Result Required. Vent Rate No Result Required. Mechanical Rate No Result Required. Pressure Support Vent No Result Required. Sodium 139 Potassium 4.0 Chloride 102 Carbon Dioxide 34 H Anion Gap 3 L BUN 29.6 H Creatinine 1.4 H Est GFR (CKD-EPI)AfAm 45.26 Est GFR (CKD-EPI)NonAf 39.05 Random Glucose 139 H Calcium 8.5 Magnesium 2.1 Total Bilirubin 0.8 AST 66 H ALT 58 Alkaline Phosphatase 152 H Creatine Kinase 224 H Creatine Kinase Index 1.2 CK-MB (CK-2) 2.9 Troponin I 0.42 H B-Natriuretic Peptide Total Protein 7.2 Albumin 2.8 L Active Medications Home Medications Medication Instructions Recorded Albuterol Sulfate Inhaler - 2 inh PO Q4H PRN 03/27/18 [Ventolin HFA Inhaler -] Losartan Potassium 25 mg PO DAILY 03/27/18 metFORMIN HCL [Metformin HCl] 500 mg PO HS 03/27/18 Albuterol 0.083% Nebulizer Gisselle 1 neb NEB Q6H 04/06/18 [Ventolin 0.083% Nebulizer Soln -] Albuterol Sulfate [Proair Hfa] 2 puff IH Q6H PRN 04/06/18 Fluticasone Propionate [Flovent 110 mcg IH BID 04/06/18 Diskus] Fluticasone/Salmeterol [Advair 1 puff IH Q12H 04/06/18 250-50 Diskus] Gabapentin 600 mg PO TID 04/06/18 Nebulizer [Airs Disposable 04/06/18 Nebulizer] Alcohol Antiseptic Pads [Alcohol 1 each TP ASDIR #1 box 04/07/18 Prep Pads] Aspirin [ASA -] 81 mg PO DAILY #30 tab.chew 04/07/18 Atorvastatin Ca [Lipitor] 80 mg PO HS 28 Days #28 tablet 04/07/18 Atorvastatin Ca [Lipitor] 80 mg PO HS 30 Days #30 tab 04/07/18 Furosemide [Lasix] 40 mg PO DAILY 28 Days #28 tablet 04/07/18 Insulin Glargine,Hum.rec.anlog 10 unit SQ DAILY #1 insuln.pen 04/07/18 [Basaglar Kwikpen U-100] Miscellaneous Medical Supply 1 each .ROUTE ASDIR #1 kit 04/07/18 [Glucometer Device] Miscellaneous Medical Supply 1 each .ROUTE ASDIR #1 box 04/07/18 [Glucometer Test Strips #50] Miscellaneous Medical Supply 1 each .ROUTE ASDIR #1 box 04/07/18 [Lancets] Current Medications Chlorhexidine Gluconate (Hibiclens For Decolonization -) 1 applic TP HS DONTA Heparin Sodium (Porcine) (Heparin -) 5,000 unit SQ BID DONTA Vancomycin HCl 1,500 mg/ (Dextrose) 500 mls @ 250 mls/hr IVPB ONCE ONE Stop: 01/25/19 18:00 Fentanyl 500 mcg/ Dextrose 100 mls @ 0 mls/hr IVPB TITR DONTA Metoprolol Tartrate (Lopressor Injection -) 5 mg IVPUSH Q4H PRN PRN Reason: HYPERTENSION Mupirocin (Bactroban Ointment (For Decolonization) -) 1 applic NS BID DONTA Stop: 01/30/19 21:59 ASSESSMENT/PLAN: Pt. s a 68 y.o. F w/ PMHx. of MO,CHFpEF, COPD (on 2.5L NC @ home), LEONIDES (on home CPAP), DM2, HTN and HLD presents for worsening shortness of breath at the request of her daughter. #JUANCARLOS 2/2 volume overload 2/2 CHFpEF, Lasix non-compliance and NSAID use Cr. 1.4 (baseline is 0.5) will avoid Nephrotoxins Given Lasix IV 40mg, f/u CXR, will likely need IV Lasix monitor Is and Os as well as daily weights f/u Blood and Urine Cultures to r/o sepsis as etiology for JUANCARLOS Given Vancomycin and Ceftriaxone empirically as Pt. has elevated WBCs to 15k and relative hypotension f/u Abdominal imaging to r/o diverticulitis f/u LA f/u UA, Urine Cr., Ur Na, and Urine Urea f/u Renal and bladder US #Respiratory Acidosis w/ compensatory Metabolic Alkalosis ABG: pH- 7.22, pCO2-76.5; HCO3(BMP)- 34 Pt. currently intubated to maintain SpO2 88-92% will encourage CPAP use at nigh after extubation Given Solumedrol 125mg in ED suggest resuming home COPD medications ICU monitoring #FEN no IVF monitor electrolytes, replete PRN NPO #DVT Ppx. Hep. SQ BID Dispo: We will continue to follow the patient. Thank you for this consultative opportunity. Visit type - Emergency Visit Emergency Visit: Yes ED Registration Date: 01/25/19 Care time: The patient presented to the Emergency Department on the above date and was hospitalized for further evaluation of their emergent condition. - New Patient This patient is new to me today: Yes Date on this admission: 01/25/19 - Critical Care Critical Care patient: Yes Total Critical Care Time (in minutes): 45 Critical Care Statement: The care of this patient involved high complexity decision making to prevent further life threatening deterioration of the patient 's condition and/or to evaluate & treat vital organ system(s) failure or risk of failure. ATTENDING PHYSICIAN STATEMENT I saw and evaluated the patient. I reviewed the resident's note and discussed the case with the resident. I agree with the resident's findings and plan as documented. SUBJECTIVE: OBJECTIVE: ASSESSMENT AND PLAN:
--- NOTE | 2019-01-25 17:58 | PN ---
Teaching Attending Note Name of Resident: Axel Langford (Nephrology) ATTENDING PHYSICIAN STATEMENT I saw and evaluated the patient. I reviewed the resident's note and discussed the case with the resident. I agree with the resident's findings and plan as documented. Renal Pt is a 68 year old female with pmhx of obesity, copd and diastolic chf who presents with dyspnea. SHe was intubated in the ER. I was called to evaluate her for JUANCARLOS. Her daughter is at bedside and assisted with history. She is not always compliant with meds. She does have history of ckd per daughter. pmhx copd chf obesity nkda social hx unable to obtain family hx non contrib Current Medications Generic Name Dose Route Start Last Admin Trade Name Freq PRN Reason Stop Dose Admin Chlorhexidine Gluconate 1 applic 01/25/19 22:00 Hibiclens For Decolonization - TP HS DONTA Heparin Sodium (Porcine) 5,000 unit 01/25/19 22:00 Heparin - SQ BID DONTA Vancomycin HCl 1,500 mg/ 500 mls @ 250 mls/hr 01/25/19 16:01 Dextrose IVPB 01/25/19 18:00 ONCE ONE Fentanyl 500 mcg/ Dextrose 100 mls @ 0 mls/hr 01/25/19 16:45 IVPB TITR DONTA Titrate Metoprolol Tartrate 5 mg 01/25/19 17:08 Lopressor Injection - IVPUSH Q4H PRN HYPERTENSION Mupirocin 1 applic 01/25/19 22:00 Bactroban Ointment (For Decolonization) - NS 01/30/19 21:59 BID DONTA Laboratory Tests 04/01/18 04/02/18 04/03/18 06:00 07:00 06:30 WBC Hgb ABG pH ABG pCO2 at Pt Temp ABG HCO3 Sodium BUN Creatinine 0.5 L 0.7 0.6 04/05/18 04/07/18 01/25/19 07:00 06:30 13:23 WBC 15.1 H Hgb 13.9 ABG pH ABG pCO2 at Pt Temp ABG HCO3 Sodium BUN Creatinine 0.5 L 0.5 L 01/25/19 01/25/19 14:15 14:44 WBC Hgb ABG pH 7.22 L ABG pCO2 at Pt Temp 76.5 H* ABG HCO3 30.2 H Sodium 139 BUN 29.6 H Creatinine 1.4 H Last Vital Signs Temp Pulse Resp BP Pulse Ox 98.7 F 87 16 115/74 91 L 01/25/19 17:25 01/25/19 17:25 01/25/19 17:25 01/25/19 17:25 01/25/19 16:25 cardio s1s2 pulm bilateral vent sounds GI soft, obese ext plus 1 edema, obese neuro lethargic skin neg rash Impression 1. JUANCARLOS 2. CHF diastolic 3. COPD on home o2 4 obesity 5. resp acidosis with met alkalosis Plan - check renal ultrasound - send ua and urine lytes - repeat labs in am - avoid nephrotoxins - follow cultures - pt did get a dose of lasix - admit to ICU
[2019-01-25] MEDS ORDERED: FLU VACCINE QUAD 60 MCG/0.5 ML (MDV 19-20) IM ONE (19:09)
[2019-01-25] MEDS ORDERED: PNEUMOC 13-VAL CONJ-DIP CRM/PF 0.5 ML DISP.SYRIN IM ONE (19:33)
[2019-01-25 19:50] LABS: ARTERIAL BLD GAS O2 SATURATION 96.9 % (95-98); ARTERIAL BLOOD GAS BASE EXCESS 2.6 meq/l (-2-2); ARTERIAL BLOOD GAS PCO2 54.9 mmHg (35-45); ARTERIAL BLOOD GAS PO2 93.2 mmHg (80-100); ARTERIAL BLOOD GAS pH 7.34 (7.35-7.45)
[2019-01-25] MEDS: MUPIROCIN 2% TOPICAL OINTMENT FOR DECOLONIZATION NS SCH (21:00)
[2019-01-25] MEDS: CHLORHEXIDINE GLUCONATE 4% CLEANSER FOR DECOLONIZATION TP SCH (21:01)
[2019-01-25] MEDS ORDERED: fentaNYL CITRATE 250 MCG/5 ML VIAL ONE (21:10)
[2019-01-25] MEDS ORDERED: MIDAZOLAM IN 0.9 % SOD.CHLORID 1 MG/1 ML PLAST..BAG ONE (21:11)
[2019-01-25] MEDS: HEPARIN NA (PORCINE) 5,000 UNITS/ML 1ML VIAL SQ SCH (21:12)
[2019-01-25] MEDS: MIDAZOLAM 100 MG in SODIUM CHLORIDE 100 ML IVPB SCH (21:12)
[2019-01-25] MEDS: FENTANYL INJECTION 500 MCG in DEXTROSE 5%-WATER - 90 ML IVPB SCH (21:13)
[2019-01-25 22:05] LABS: HYALINE CASTS 37 /lpf (0-8); URINE APPEARANCE CLOUDY; URINE BACTERIA 10.2 /hpf (NEGATIVE); URINE BILIRUBIN 1+ (NEGATIVE); URINE COLOR DK YELLOW; URINE GLUCOSE (UA) NEGATIVE (NEGATIVE); URINE KETONE TRACE (NEGATIVE); URINE LEUK ESTERASE TRACE (NEGATIVE); URINE NITRITE NEGATIVE (NEGATIVE); URINE PROTEIN 1+ (NEGATIVE); URINE RBC 18 /hpf (0-4); URINE WBC 12 /hpf (0-5)
[2019-01-26] MEDS ORDERED: MIDAZOLAM IN 0.9 % SOD.CHLORID 1 MG/1 ML PLAST..BAG ONE ×2 (05:47→19:24)
[2019-01-26] MEDS ORDERED: fentaNYL CITRATE 250 MCG/5 ML VIAL ONE ×2 (05:48→19:23)
[2019-01-26 06:09] LABS: BASO % 0.3 % (0-2.0); HEMATOCRIT 43.4 % (32.4-45.2); HEMOGLOBIN 14.2 GM/dL (10.7-15.3); LYMPH % 6.3 % (8-40); MCH 27.8 pg (25.7-33.7); MCHC 32.8 g/dl (32.0-36.0); MEAN CELL VOLUME 84.9 fl (80-96); MEAN PLT VOLUME 10.6 fl (7.5-11.1); MONO % 3.5 % (3.8-10.2); NEUT % 89.9 % (42.8-82.8); PLATELET COUNT 202 K/MM3 (134-434); RBC 5.11 M/mm3 (3.60-5.2); RDW 15.8 % (11.6-15.6); WHITE BLOOD COUNT 14.2 K/mm3 (4.0-10.0)
[2019-01-26 08:45] LABS: ARTERIAL BLOOD GAS BASE EXCESS 4.4 meq/l (-2-2); ARTERIAL BLOOD GAS PCO2 49.3 mmHg (35-45)
[2019-01-26 08:57] LABS: ARTERIAL BLOOD GAS PO2 81.1 mmHg (80-100)
[2019-01-26 08:58] LABS: ALLENS TEST POSITIVE
[2019-01-26 08:59] LABS: ALBUMIN 2.7 g/dl (3.4-5.0); BILIRUBIN,TOTAL 0.7 mg/dL (0.2-1); BLOOD UREA NITROGEN 38.6 mg/dL (7-18); CALCIUM 8.8 mg/dL (8.5-10.1); MAGNESIUM 1.8 mg/dL (1.8-2.4); N-TERMINAL BNP 4268.6 pg/ml (5-125); PHOSPHOROUS 3.8 mg/dL (2.5-4.9); POTASSIUM 4.6 mmol/L (3.5-5.1); TOT PROT 7.1 g/dl (6.4-8.2)
--- NOTE | 2019-01-26 09:48 | CON.CARD ---
Consult Consult Specialty:: Cardiology - History of Present Illness History of Present Illness: 68 y.o. F w/ PMHx. of [place], COPD (on 2.5L NC @ home), LEONIDES (on home CPAP), DM2, HTN and HLD presents for worsening shortness of breath at the request of her daughter. Per daughter at bedside who does not live with her, Pt. has [employer] from 9am-2pm, Pt. had been having worsening shortness of breath with productive sputum for "awhile" now and was refusing to go to the hospital. Pt. was also complaining of lower abdominal pain per daughter and RN prior to intubation. Per chart review Pt. was last admitted in March for similar symptoms requiring intubation 2/2 poor compliance with Lasix and with CPAP. Last Echo in March showed and EF of 60-65% with mildly impaired relaxation. Per daughter Pt. did not have any fevers at home and denied any other acute complaints however was using OTC NSAIDs to treat joint and back pain. - History Source History Provided By: Medical Record - Past Medical History Cardio/Vascular: Yes: CHF, HTN, Hyperlipdemia, [place] Pulmonary: Yes: COPD, O2 Dependent, Sleep Apnea ...: No Endocrine: Yes: Diabetes Mellitus - Alcohol/Substance Use Hx Alcohol Use: No - Smoking History Smoking history: Former smoker Have you smoked in the past 12 months: No - Social History History of Recent Travel: No Home Medications - Allergies Allergies/Adverse Reactions: Allergies Allergy/AdvReac Type Severity Reaction Status Date / Time No Known Allergies Allergy Verified 01/25/19 11:53 - Home Medications Home Medications: Ambulatory Orders Albuterol Sulfate Inhaler - [Ventolin HFA Inhaler -] 2 inh PO Q4H PRN 03/27/18 Losartan Potassium 25 mg PO DAILY 03/27/18 metFORMIN HCL [Metformin HCl] 500 mg PO HS 03/27/18 Albuterol 0.083% Nebulizer Gisselle [Ventolin 0.083% Nebulizer Soln -] 1 neb NEB Q6H 04/06/18 Albuterol Sulfate [Proair Hfa] 2 puff IH Q6H PRN 04/06/18 Fluticasone Propionate [Flovent Diskus] 110 mcg IH BID 04/06/18 Fluticasone/Salmeterol [Advair 250-50 Diskus] 1 puff IH Q12H 04/06/18 Gabapentin 600 mg PO TID 04/06/18 Nebulizer [Airs Disposable Nebulizer] 04/06/18 Alcohol Antiseptic Pads [Alcohol Prep Pads] 1 each TP ASDIR #1 box 04/07/18 Aspirin [ASA -] 81 mg PO DAILY #30 tab.chew 04/07/18 Atorvastatin Ca [Lipitor] 80 mg PO HS 28 Days #28 tablet 04/07/18 Atorvastatin Ca [Lipitor] 80 mg PO HS 30 Days #30 tab 04/07/18 Furosemide [Lasix] 40 mg PO DAILY 28 Days #28 tablet 04/07/18 Insulin Glargine,Hum.rec.anlog [Basaglar Kwikpen U-100] 10 unit SQ DAILY #1 insuln.pen 04/07/18 Miscellaneous Medical Supply [Glucometer Device] 1 each .ROUTE ASDIR #1 kit Miscellaneous Medical Supply [Glucometer Test Strips #50] 1 each .ROUTE ASDIR # 1 box 04/07/18 Miscellaneous Medical Supply [Lancets] 1 each .ROUTE ASDIR #1 box 04/07/18 Review of Systems Unable to obtain ROS, reason: intubated sedated Vital Signs: Vital Signs Temperature 99.3 F 01/26/19 09:00 Pulse Rate 81 01/26/19 09:00 Respiratory Rate 16 01/26/19 09:00 Blood Pressure 145/83 01/26/19 09:00 O2 Sat by Pulse Oximetry (%) 97 01/26/19 09:00 Constitutional: Yes: Well Nourished, No Distress, Calm Eyes: Yes: WNL, Conjunctiva Clear, EOM Intact HENT: Yes: WNL, Atraumatic, Normocephalic Neck: Yes: WNL, Supple, Trachea Midline Respiratory: Yes: Diminished, Intubated, Mechanically Ventilated Gastrointestinal: Yes: WNL, Normal Bowel Sounds Renal/: Yes: WNL Cardiovascular: Yes: WNL, Regular Rate and Rhythm Musculoskeletal: Yes: WNL Extremities: Yes: WNL Integumentary: Yes: WNL ...Motor Strength: WNL Psychiatric: Yes: WNL, Alert, Oriented - Other Data Labs, Other Data: CBC, BMP 01/26/19 05:30 01/26/19 05:30 Troponin, BNP 01/25/19 01/25/19 01/25/19 13:23 13:23 14:44 Troponin I Cancelled 0.42 H B-Natriuretic Peptide 6753.7 H 01/25/19 01/26/19 20:22 05:30 Troponin I 0.38 H 0.22 H B-Natriuretic Peptide 4268.6 H Troponin, BNP 01/25/19 01/25/19 01/25/19 13:23 13:23 14:44 Troponin I Cancelled 0.42 H B-Natriuretic Peptide 6753.7 H 01/25/19 01/26/19 20:22 05:30 Troponin I 0.38 H 0.22 H B-Natriuretic Peptide 4268.6 H Imaging - Results Chest X-ray: Image Reviewed (cm chf) EKG: Image Reviewed (s tachy incomplete rbbb rep abn) Problem List - Problems (1) CHF (congestive heart failure) Code(s): I50.9 - HEART FAILURE, UNSPECIFIED Qualifiers: Heart failure type: unspecified Heart failure chronicity: unspecified Qualified Code(s): I50.9 - Heart failure, unspecified (2) COPD exacerbation Code(s): J44.1 - CHRONIC OBSTRUCTIVE PULMONARY DISEASE W (ACUTE) EXACERBATION (3) Elevated troponin Code(s): R79.89 - OTHER SPECIFIED ABNORMAL FINDINGS OF BLOOD CHEMISTRY (4) HLD (hyperlipidemia) Code(s): E78.5 - HYPERLIPIDEMIA, UNSPECIFIED (5) HTN (hypertension) Code(s): I10 - ESSENTIAL (PRIMARY) HYPERTENSION (6) Hypercapnic respiratory failure Code(s): J96.92 - RESPIRATORY FAILURE, UNSPECIFIED WITH HYPERCAPNIA Qualifiers: Chronicity: unspecified Qualified Code(s): J96.92 - Respiratory failure, unspecified with hypercapnia (7) Leukocytosis Code(s): D72.829 - ELEVATED WHITE BLOOD CELL COUNT, UNSPECIFIED (8) Obesity, morbid, BMI 50 or higher Code(s): E66.01 - MORBID (SEVERE) OBESITY DUE TO EXCESS CALORIES (9) Pneumonia Code(s): J18.9 - PNEUMONIA, UNSPECIFIED ORGANISM Qualifiers: Aspiration pneumonia type: unspecified Laterality: unspecified laterality Lung location: unspecified part of lung (10) Acute on chronic respiratory failure with hypoxia and hypercapnia Code(s): J96.21 - ACUTE AND CHRONIC RESPIRATORY FAILURE WITH HYPOXIA; J96.22 - ACUTE AND CHRONIC RESPIRATORY FAILURE WITH HYPERCAPNIA (11) CHF exacerbation Code(s): I50.9 - HEART FAILURE, UNSPECIFIED Qualifiers: Heart failure type: unspecified Qualified Code(s): I50.9 - Heart failure, unspecified (12) Diastolic CHF Code(s): I50.30 - UNSPECIFIED DIASTOLIC (CONGESTIVE) HEART FAILURE (13) NSTEMI (non-ST elevated myocardial infarction) Code(s): I21.4 - NON-ST ELEVATION (NSTEMI) MYOCARDIAL INFARCTION (14) RSV (acute bronchiolitis due to respiratory syncytial virus) Code(s): J21.0 - ACUTE BRONCHIOLITIS DUE TO RESPIRATORY SYNCYTIAL VIRUS (15) Respiratory failure Code(s): J96.90 - RESPIRATORY FAILURE, UNSP, UNSP W HYPOXIA OR HYPERCAPNIA Qualifiers: Chronicity: unspecified Respiratory failure complication: hypoxia and hypercapnia Qualified Code(s): J96.91 - Respiratory failure, unspecified with hypoxia; J96.92 - Respiratory failure, unspecified with hypercapnia (16) Diabetes Code(s): E11.9 - TYPE 2 DIABETES MELLITUS WITHOUT COMPLICATIONS Assessment/Plan Imp; Acute on Chronic Hypoxic and Hypercapneic Respiratory Failure Acute on Chronic Diastolic Heart Failure Acute Kidney Injury positive tnis due to above r/o Acute COPD Exacerbation r/o Pneumonia HTN DM Hyperlipidemia Obstructive Sleep Apnea Plan as per icu team abx lasix IV steroids echo f/u ekg dvt plx will need cardiovascular risks stratification when stable cc time spent 70 min
[2019-01-26] MEDS: MUPIROCIN 2% TOPICAL OINTMENT FOR DECOLONIZATION NS SCH ×2 (10:03→21:59)
[2019-01-26] MEDS: HEPARIN NA (PORCINE) 5,000 UNITS/ML 1ML VIAL SQ SCH ×2 (10:30→21:59)
--- NOTE | 2019-01-26 10:31 | PN ---
Progress Note (short form) - Note Progress Note: ID consult dictated imp/reccd hypercapneic respiratory failure cannot r/o pneumonia (CAP) morbid obesity DM COPD exacerbation on home oxygen vent management per ICU rocephin/zithromax cultures sputum/blood urinary antigens Problem List - Problems (1) Hypercapnic respiratory failure Code(s): J96.92 - RESPIRATORY FAILURE, UNSPECIFIED WITH HYPERCAPNIA Qualifiers: Chronicity: unspecified Qualified Code(s): J96.92 - Respiratory failure, unspecified with hypercapnia (2) Pneumonia Code(s): J18.9 - PNEUMONIA, UNSPECIFIED ORGANISM Qualifiers: Aspiration pneumonia type: unspecified Laterality: unspecified laterality Lung location: unspecified part of lung (3) Obesity, morbid, BMI 50 or higher Code(s): E66.01 - MORBID (SEVERE) OBESITY DUE TO EXCESS CALORIES (4) COPD exacerbation Code(s): J44.1 - CHRONIC OBSTRUCTIVE PULMONARY DISEASE W (ACUTE) EXACERBATION (5) Diabetes Code(s): E11.9 - TYPE 2 DIABETES MELLITUS WITHOUT COMPLICATIONS
[2019-01-26] MEDS ORDERED: methylPREDNISolone NA SUCC 125 MG/2 ML VIAL ONE (10:32)
[2019-01-26] MEDS: AZITHROMYCIN IVPB 500 MG/250 ML BAG IVPB SCH (10:35)
[2019-01-26] MEDS: methylPREDNISolone NA SUCC 40 MG/1 ML VIAL IVPUSH SCH ×2 (10:35→17:12)
--- NOTE | 2019-01-26 10:52 | PN ---
Progress Note, Physician Chief Complaint: Respiratory failure CHF COPD Morbid obesity History of Present Illness: Remains intubated overnight - Current Medication List Current Medications: Active Medications Albuterol/Ipratropium (Duoneb -) 1 amp NEB RQID [facility] Chlorhexidine Gluconate (Hibiclens For Decolonization -) 1 applic TP HS [facility] Last Admin: 01/25/19 21:01 Dose: 1 applic Furosemide (Lasix Injection -) 40 mg IVPUSH BID@0600,1400 [facility] Heparin Sodium (Porcine) (Heparin -) 5,000 unit SQ BID [facility] Last Admin: 01/26/19 10:30 Dose: 5,000 unit Midazolam HCl 100 mg/ Sodium (Chloride) 100 mls @ 2 mls/hr IVPB TITR [facility]; Protocol Last Titration: 01/26/19 07:00 Dose: 6 mg/hr, 6 mls/hr Fentanyl 500 mcg/ Dextrose 100 mls @ 10 mls/hr IVPB TITR [facility]; Protocol Last Titration: 01/26/19 10:37 Dose: 0 mcg/hr, 0 mls/hr Azithromycin (Zithromax 500mg Ivpb (Pre-Docked)) 500 mg in 250 mls @ 250 mls/ hr IVPB DAILY [facility] Last Admin: 01/26/19 10:35 Dose: 250 mls/hr Ceftriaxone Sodium 2 gm/ (Dextrose) 100 mls @ 200 mls/hr IVPB DAILY [facility]; Protocol Methylprednisolone Sodium Succinate (Solu-Medrol -) 60 mg IVPUSH Q8H-IV [facility] Stop: 01/27/19 12:00 Last Admin: 01/26/19 10:35 Dose: 60 mg Metoprolol Tartrate (Lopressor Injection -) 5 mg IVPUSH Q4H PRN PRN Reason: HYPERTENSION Mupirocin (Bactroban Ointment (For Decolonization) -) 1 applic NS BID [facility] Stop: 01/30/19 21:59 Last Admin: 01/25/19 21:00 Dose: 1 applic - Objective Vital Signs: Vital Signs Temperature 98.1 F 01/26/19 10:00 Pulse Rate 83 01/26/19 10:00 Respiratory Rate 16 01/26/19 10:00 Blood Pressure 141/81 01/26/19 10:00 O2 Sat by Pulse Oximetry (%) 97 01/26/19 09:44 Constitutional: Yes: Well Nourished, No Distress, Calm, Obese Cardiovascular: Yes: Regular Rate and Rhythm, S1, S2 Respiratory: Yes: Mechanically Ventilated, Rhonchi (diffuse) Gastrointestinal: Yes: Normal Bowel Sounds, Soft, Abdomen, Obese Genitourinary: Yes: Villalba Present Edema: Yes Edema: LLE: Trace, RLE: Trace Peripheral Pulses WNL: Yes Neurological: Yes: Other (sedated) Labs: CBC, BMP 01/26/19 05:30 01/26/19 05:30 Problem List - Problems (1) CHF (congestive heart failure) Assessment/Plan: -IV diuresis -Non compliant o/p -Cardiology+ nephrology on board -monitor I&O's Problems reviewed: Yes Code(s): I50.9 - HEART FAILURE, UNSPECIFIED Qualifiers: Heart failure type: unspecified Heart failure chronicity: unspecified Qualified Code(s): I50.9 - Heart failure, unspecified (2) COPD exacerbation Assessment/Plan: -Mech vent -wean as tolerated -Pulmonary consult -IV abx -IV medrol tapering dose -Bronchodilators Problems reviewed: Yes Code(s): J44.1 - CHRONIC OBSTRUCTIVE PULMONARY DISEASE W (ACUTE) EXACERBATION (3) Elevated troponin Assessment/Plan: -2/2 to demand ischemia? -trending down -cardiology on board Problems reviewed: Yes Code(s): R79.89 - OTHER SPECIFIED ABNORMAL FINDINGS OF BLOOD CHEMISTRY (4) HTN (hypertension) Assessment/Plan: -metoporolol 5 mg Q4H PRN for SBP>140 mm Hg -Cardiology on board Problems reviewed: Yes Code(s): I10 - ESSENTIAL (PRIMARY) HYPERTENSION (5) Hypercapnic respiratory failure Assessment/Plan: -Mech vent -wean as tolerated -Pulmonary consult -IV abx -IV medrol tapering dose -Bronchodilators -legionela negative -Influenza PCR pending -cannot r/o CAP -ID on board Code(s): J96.92 - RESPIRATORY FAILURE, UNSPECIFIED WITH HYPERCAPNIA Qualifiers: Chronicity: unspecified Qualified Code(s): J96.92 - Respiratory failure, unspecified with hypercapnia (6) Obesity, morbid, BMI 50 or higher Problems reviewed: Yes Code(s): E66.01 - MORBID (SEVERE) OBESITY DUE TO EXCESS CALORIES (7) Diabetes Assessment/Plan: -check a1c -BGM AC HS -Initiate feeds if remains intubated tomorrow, follow RD recommendations Problems reviewed: Yes Code(s): E11.9 - TYPE 2 DIABETES MELLITUS WITHOUT COMPLICATIONS Assessment/Plan see problem list
--- NOTE | 2019-01-26 11:09 | PN ---
Teaching Attending Note Name of Resident: Natasha Gallegos ATTENDING PHYSICIAN STATEMENT I saw and evaluated the patient. I reviewed the resident's note and discussed the case with the resident. I agree with the resident's findings and plan as documented. SUBJECTIVE: Pt seen and examined in the ICU. Remains intubated, sedated. On volume assist control with 60% FiO2. Attempted CPAP/PS but pt became tachypneic/hypoxic, placed back on sedation and assist control. OBJECTIVE: Vital Signs Period Temp Pulse Resp BP Sys/Garner Pulse Ox Last 24 Hr 98.1 F-100.1 F 78-101 16-26 102-145/62-88 89-97 Intake & Output 01/23/19 01/24/19 01/25/19 01/26/19 23:59 23:59 23:59 23:59 Intake Total 10 200 Output Total 1000 Balance 10 -800 Weight 137.438 kg Gen: intubated, sedated Heart: RRR Lung: distant breath sounds Abd: soft, nontender Ext: + edema CBC, BMP 01/26/19 05:30 01/26/19 05:30 Active Medications Albuterol/Ipratropium (Duoneb -) 1 amp NEB RQID [facility] Chlorhexidine Gluconate (Hibiclens For Decolonization -) 1 applic TP HS [facility] Last Admin: 01/25/19 21:01 Dose: 1 applic Furosemide (Lasix Injection -) 40 mg IVPUSH BID@0600,1400 [facility] Heparin Sodium (Porcine) (Heparin -) 5,000 unit SQ BID [facility] Last Admin: 01/26/19 10:30 Dose: 5,000 unit Midazolam HCl 100 mg/ Sodium (Chloride) 100 mls @ 2 mls/hr IVPB TITR [facility]; Protocol Last Titration: 01/26/19 07:00 Dose: 6 mg/hr, 6 mls/hr Fentanyl 500 mcg/ Dextrose 100 mls @ 10 mls/hr IVPB TITR [facility]; Protocol Last Titration: 01/26/19 10:37 Dose: 0 mcg/hr, 0 mls/hr Azithromycin (Zithromax 500mg Ivpb (Pre-Docked)) 500 mg in 250 mls @ 250 mls/ hr IVPB DAILY [facility] Last Admin: 01/26/19 10:35 Dose: 250 mls/hr Ceftriaxone Sodium 2 gm/ (Dextrose) 100 mls @ 200 mls/hr IVPB DAILY [facility]; Protocol Methylprednisolone Sodium Succinate (Solu-Medrol -) 60 mg IVPUSH Q8H-IV [facility] Stop: 01/27/19 12:00 Last Admin: 01/26/19 10:35 Dose: 60 mg Metoprolol Tartrate (Lopressor Injection -) 5 mg IVPUSH Q4H PRN PRN Reason: HYPERTENSION Mupirocin (Bactroban Ointment (For Decolonization) -) 1 applic NS BID [facility] Stop: 01/30/19 21:59 Last Admin: 01/25/19 21:00 Dose: 1 applic ASSESSMENT AND PLAN: Acute on Chronic Hypoxic and Hypercapneic Respiratory Failure Acute on Chronic Diastolic Heart Failure Acute Kidney Injury r/o Acute COPD Exacerbation r/o Pneumonia HTN DM Hyperlipidemia Obstructive Sleep Apnea - continue lasix - monitor urine output, creatinine - daily weights - continue empiric antibiotics - f/u cultures - short course of medrol - inhaled bronchodilators - taper FiO2 to keep SpO2 >90% - daily sedation vacations to assess mental status - spontaneous breathing trials as tolerated when mental status improved - enteral feeds if unable to extubate - DVT prophylaxis - continue ICU monitoring critical care time spent in reviewing chart, evaluating patient and formulating plan 35 min
[2019-01-26] MEDS ORDERED: DEXTROSE 5%-WATER 100 ML IVPB ONE (11:16)
[2019-01-26] MEDS ORDERED: INSULIN (NOVOLOG) ASPART 100 UNITS/ML 10ML VIAL ONE (11:17)
[2019-01-26] MEDS: CEFTRIAXONE 2 GM in DEXTROSE 5%-WATER 100 ML IVPB SCH (11:29)
--- NOTE | 2019-01-26 11:41 | PN ---
Physical Exam: SUBJECTIVE: Patient seen and examined at bedside this morning. Patient is intubated and sedated. No acute events overnight in ICU. OBJECTIVE: Vital Signs Period Temp Pulse Resp BP Sys/Garner Pulse Ox Last 24 Hr 98.1 F-100.1 F 78-101 16-26 102-145/62-88 89-97 GENERAL: Intubated, sedated HEAD: NC/AT EYES: PERRL, no scleral icterus ENT: dry mucous membranes NECK: Trachea midline LUNGS: intubated, crackles bilaterally R>L, no wheezing, no accessory muscle use HEART: Regular rate and rhythm, S1, S2 without murmur, rub or gallop. ABDOMEN: obese, normoactive bowel sounds, soft, nontender, non distended EXTREMITIES: trace edema of B/L lower extremities, 2+ pulses NEUROLOGICAL: normal gag reflex Laboratory Results - last 24 hr 01/25/19 01/25/19 01/25/19 13:23 13:23 13:23 WBC 15.1 H RBC 5.12 Hgb 13.9 Hct 44.7 MCV 87.1 MCH 27.2 MCHC 31.2 L RDW 16.3 H Plt Count 204 MPV 10.9 Absolute Neuts (auto) 12.7 H Neutrophils % 84.2 H Lymphocytes % 7.1 L D Monocytes % 8.0 Eosinophils % 0.1 D Basophils % 0.6 Nucleated RBC % 0 Platelet Estimate Adequate Platelet Comment Anticoagulation Therapy Puncture Site Patient Temperature ABG pH ABG pCO2 at Pt Temp ABG pO2 at Pt Temp ABG HCO3 ABG O2 Sat (Measured) ABG O2 Content ABG Base Excess Dwayne Test Carboxyhemoglobin Methemoglobin O2 Delivery Device Oxygen Flow Rate Vent Mode Vent Rate Mechanical Rate PEEP Pressure Support Vent Sodium Cancelled Potassium Cancelled Chloride Cancelled Carbon Dioxide Cancelled Anion Gap Cancelled BUN Cancelled Creatinine Cancelled Est GFR (CKD-EPI)AfAm Cancelled Est GFR (CKD-EPI)NonAf Cancelled POC Glucometer Random Glucose Cancelled Lactic Acid Calcium Cancelled Phosphorus Magnesium Cancelled Total Bilirubin Cancelled AST Cancelled ALT Cancelled Alkaline Phosphatase Cancelled Creatine Kinase Cancelled Creatine Kinase Index CK-MB (CK-2) Troponin I Cancelled B-Natriuretic Peptide 6753.7 H Total Protein Cancelled Albumin Cancelled Urine Color Urine Appearance Urine pH Ur Specific [place] Urine Protein Urine Glucose (UA) Urine Ketones Urine Blood Urine Nitrite Urine Bilirubin Urine Urobilinogen Ur Leukocyte Esterase Urine WBC (Auto) Urine RBC (Auto) Urine Casts (Auto) U Epithel Cells (Auto) Urine Bacteria (Auto) Ur Random Creatinine Ur Random Sodium 01/25/19 01/25/19 01/25/19 14:15 14:44 17:35 WBC RBC Hgb Hct MCV MCH MCHC RDW Plt Count MPV Absolute Neuts (auto) Neutrophils % Lymphocytes % Monocytes % Eosinophils % Basophils % Nucleated RBC % Platelet Estimate Platelet Comment Anticoagulation Therapy No Result Required. Puncture Site Right radial Patient Temperature ABG pH 7.22 L ABG pCO2 at Pt Temp 76.5 H* ABG pO2 at Pt Temp 96.4 ABG HCO3 30.2 H ABG O2 Sat (Measured) 96.0 ABG O2 Content 18.6 ABG Base Excess 0.4 Dwayne Test Positive Carboxyhemoglobin 2.0 Methemoglobin < 1.0 O2 Delivery Device No Result Required. Oxygen Flow Rate Yes Vent Mode No Result Required. Vent Rate No Result Required. Mechanical Rate No Result Required. PEEP Pressure Support Vent No Result Required. Sodium 139 Potassium 4.0 Chloride 102 Carbon Dioxide 34 H Anion Gap 3 L BUN 29.6 H Creatinine 1.4 H Est GFR (CKD-EPI)AfAm 45.26 Est GFR (CKD-EPI)NonAf 39.05 POC Glucometer Random Glucose 139 H Lactic Acid 1.2 Calcium 8.5 Phosphorus Magnesium 2.1 Total Bilirubin 0.8 AST 66 H ALT 58 Alkaline Phosphatase 152 H Creatine Kinase 224 H Creatine Kinase Index 1.2 CK-MB (CK-2) 2.9 Troponin I 0.42 H B-Natriuretic Peptide Total Protein 7.2 Albumin 2.8 L Urine Color Urine Appearance Urine pH Ur Specific [place] Urine Protein Urine Glucose (UA) Urine Ketones Urine Blood Urine Nitrite Urine Bilirubin Urine Urobilinogen Ur Leukocyte Esterase Urine WBC (Auto) Urine RBC (Auto) Urine Casts (Auto) U Epithel Cells (Auto) Urine Bacteria (Auto) Ur Random Creatinine Ur Random Sodium 01/25/19 01/25/19 01/25/19 17:45 19:26 20:22 WBC RBC Hgb Hct MCV MCH MCHC RDW Plt Count MPV Absolute Neuts (auto) Neutrophils % Lymphocytes % Monocytes % Eosinophils % Basophils % Nucleated RBC % Platelet Estimate Platelet Comment Anticoagulation Therapy Cancelled Puncture Site Cancelled Right radial Patient Temperature Cancelled ABG pH Cancelled 7.34 L ABG pCO2 at Pt Temp Cancelled 54.9 H ABG pO2 at Pt Temp Cancelled 93.2 ABG HCO3 Cancelled 29.1 H ABG O2 Sat (Measured) Cancelled 96.9 ABG O2 Content Cancelled 19.0 ABG Base Excess Cancelled 2.6 H Dwayne Test Cancelled No Result Required. Carboxyhemoglobin Methemoglobin O2 Delivery Device Cancelled Oxygen Flow Rate Cancelled 60% Vent Mode Cancelled Ac mode Vent Rate Cancelled 16 Mechanical Rate Cancelled PEEP Cancelled 5.0 Pressure Support Vent Cancelled Sodium Potassium Chloride Carbon Dioxide Anion Gap BUN Creatinine Est GFR (CKD-EPI)AfAm Est GFR (CKD-EPI)NonAf POC Glucometer Random Glucose Lactic Acid Calcium Phosphorus Magnesium Total Bilirubin AST ALT Alkaline Phosphatase Creatine Kinase 213 H Creatine Kinase Index 1.5 CK-MB (CK-2) 3.4 Troponin I 0.38 H B-Natriuretic Peptide Total Protein Albumin Urine Color Urine Appearance Urine pH Ur Specific [place] Urine Protein Urine Glucose (UA) Urine Ketones Urine Blood Urine Nitrite Urine Bilirubin Urine Urobilinogen Ur Leukocyte Esterase Urine WBC (Auto) Urine RBC (Auto) Urine Casts (Auto) U Epithel Cells (Auto) Urine Bacteria (Auto) Ur Random Creatinine Ur Random Sodium 01/25/19 01/25/19 01/25/19 20:30 20:30 20:30 WBC RBC Hgb Hct MCV MCH MCHC RDW Plt Count MPV Absolute Neuts (auto) Neutrophils % Lymphocytes % Monocytes % Eosinophils % Basophils % Nucleated RBC % Platelet Estimate Platelet Comment Anticoagulation Therapy Puncture Site Patient Temperature ABG pH ABG pCO2 at Pt Temp ABG pO2 at Pt Temp ABG HCO3 ABG O2 Sat (Measured) ABG O2 Content ABG Base Excess Dwayne Test Carboxyhemoglobin Methemoglobin O2 Delivery Device Oxygen Flow Rate Vent Mode Vent Rate Mechanical Rate PEEP Pressure Support Vent Sodium Potassium Chloride Carbon Dioxide Anion Gap BUN Creatinine Est GFR (CKD-EPI)AfAm Est GFR (CKD-EPI)NonAf POC Glucometer Random Glucose Lactic Acid Calcium Phosphorus Magnesium Total Bilirubin AST ALT Alkaline Phosphatase Creatine Kinase Creatine Kinase Index CK-MB (CK-2) Troponin I B-Natriuretic Peptide Total Protein Albumin Urine Color Dk yellow Urine Appearance Cloudy Urine pH 5.0 Ur Specific Bejou 1.021 Urine Protein 1+ H Urine Glucose (UA) Negative Urine Ketones Trace H Urine Blood Trace Urine Nitrite Negative Urine Bilirubin 1+ H Urine Urobilinogen 1.0 Ur Leukocyte Esterase Trace Urine WBC (Auto) 12 Urine RBC (Auto) 18 Urine Casts (Auto) 37 U Epithel Cells (Auto) 3.0 Urine Bacteria (Auto) 10.2 Ur Random Creatinine 240.0 H Ur Random Sodium 15 L 01/25/19 01/26/19 01/26/19 22:42 05:30 05:30 WBC 14.2 H RBC 5.11 Hgb 14.2 Hct 43.4 MCV 84.9 MCH 27.8 MCHC 32.8 RDW 15.8 H Plt Count 202 MPV 10.6 Absolute Neuts (auto) 12.8 H Neutrophils % 89.9 H Lymphocytes % 6.3 L Monocytes % 3.5 L Eosinophils % 0.0 D Basophils % 0.3 Nucleated RBC % 0 Platelet Estimate Platelet Comment Anticoagulation Therapy Puncture Site Patient Temperature ABG pH ABG pCO2 at Pt Temp ABG pO2 at Pt Temp ABG HCO3 ABG O2 Sat (Measured) ABG O2 Content ABG Base Excess Dwayne Test Carboxyhemoglobin Methemoglobin O2 Delivery Device Oxygen Flow Rate Vent Mode Vent Rate Mechanical Rate PEEP Pressure Support Vent Sodium 139 Potassium 4.6 Chloride 102 Carbon Dioxide 27 Anion Gap 10 BUN 38.6 H Creatinine 1.0 Est GFR (CKD-EPI)AfAm 67.99 Est GFR (CKD-EPI)NonAf 58.66 POC Glucometer 193 Random Glucose 167 H Lactic Acid Calcium 8.8 Phosphorus 3.8 Magnesium 1.8 Total Bilirubin 0.7 AST 38 H ALT 49 Alkaline Phosphatase 130 H Creatine Kinase 142 Creatine Kinase Index CK-MB (CK-2) Troponin I 0.22 H B-Natriuretic Peptide 4268.6 H Total Protein 7.1 Albumin 2.7 L Urine Color Urine Appearance Urine pH Ur Specific [place] Urine Protein Urine Glucose (UA) Urine Ketones Urine Blood Urine Nitrite Urine Bilirubin Urine Urobilinogen Ur Leukocyte Esterase Urine WBC (Auto) Urine RBC (Auto) Urine Casts (Auto) U Epithel Cells (Auto) Urine Bacteria (Auto) Ur Random Creatinine Ur Random Sodium 01/26/19 01/26/19 06:48 08:25 WBC RBC Hgb Hct MCV MCH MCHC RDW Plt Count MPV Absolute Neuts (auto) Neutrophils % Lymphocytes % Monocytes % Eosinophils % Basophils % Nucleated RBC % Platelet Estimate Platelet Comment Anticoagulation Therapy Puncture Site Right radial Patient Temperature ABG pH 7.40 ABG pCO2 at Pt Temp 49.3 H ABG pO2 at Pt Temp 81.1 ABG HCO3 29.9 H ABG O2 Sat (Measured) 95.0 ABG O2 Content No Result Required. ABG Base Excess 4.4 H Dwayne Test Positive Carboxyhemoglobin Methemoglobin O2 Delivery Device Vent Oxygen Flow Rate 60% Vent Mode A/c Vent Rate 16 Mechanical Rate Yes PEEP 5.0 Pressure Support Vent 450 Sodium Potassium Chloride Carbon Dioxide Anion Gap BUN Creatinine Est GFR (CKD-EPI)AfAm Est GFR (CKD-EPI)NonAf POC Glucometer 168 Random Glucose Lactic Acid Calcium Phosphorus Magnesium Total Bilirubin AST ALT Alkaline Phosphatase Creatine Kinase Creatine Kinase Index CK-MB (CK-2) Troponin I B-Natriuretic Peptide Total Protein Albumin Urine Color Urine Appearance Urine pH Ur Specific [place] Urine Protein Urine Glucose (UA) Urine Ketones Urine Blood Urine Nitrite Urine Bilirubin Urine Urobilinogen Ur Leukocyte Esterase Urine WBC (Auto) Urine RBC (Auto) Urine Casts (Auto) U Epithel Cells (Auto) Urine Bacteria (Auto) Ur Random Creatinine Ur Random Sodium Active Medications Generic Name Dose Route Start Last Admin Trade Name Freq PRN Reason Stop Dose Admin Albuterol/Ipratropium 1 amp 01/26/19 12:00 Duoneb - NEB RQID DONTA Chlorhexidine Gluconate 1 applic 01/25/19 22:00 01/25/19 21:01 Hibiclens For Decolonization - TP 1 applic HS DONTA Administration Furosemide 40 mg 01/26/19 14:00 Lasix Injection - IVPUSH BID@0600,1400 DONTA Heparin Sodium (Porcine) 5,000 unit 01/25/19 22:00 01/26/19 10:30 Heparin - SQ 5,000 unit BID DONTA Administration Midazolam HCl 100 mg/ Sodium 100 mls @ 2 mls/hr 01/25/19 19:15 01/26/19 07:00 Chloride IVPB 6 mg/hr TITR DONTA 6 mls/hr Titration Protocol 2 MG/HR Fentanyl 500 mcg/ Dextrose 100 mls @ 10 mls/hr 01/25/19 19:32 01/26/19 10:37 IVPB 0 mcg/hr TITR DONTA 0 mls/hr Titration Protocol 50 MCG/HR Azithromycin 500 mg in 250 mls @ 250 mls/hr 01/26/19 10:30 01/26/19 10:35 Zithromax 500mg Ivpb (Pre-Docked) IVPB 250 mls/hr DAILY DONTA Administration Ceftriaxone Sodium 2 gm/ 100 mls @ 200 mls/hr 01/26/19 10:30 Dextrose IVPB DAILY DONTA Protocol Methylprednisolone Sodium Succinate 60 mg 01/26/19 10:30 01/26/19 10:35 Solu-Medrol - IVPUSH 01/27/19 12:00 60 mg Q8H-IV DONTA Administration Metoprolol Tartrate 5 mg 01/25/19 17:08 Lopressor Injection - IVPUSH Q4H PRN HYPERTENSION Mupirocin 1 applic 01/25/19 22:00 01/25/19 21:00 Bactroban Ointment (For Decolonization) - NS 01/30/19 21:59 1 applic BID DONTA Administration ASSESSMENT/PLAN: 68F with a PMH of h/o morbid obesity, COPD (on 2LPM home O2), CHF, LEONIDES (non- adherent to CPAP), NSTEMI, DM, HTN, and HLD who presents with hypercapniec respiratory failure, CHF exacerbation, and questionable PNA requiring intubation and admission to ICU. #Neuro - Intubated - Sedated, on Fentanyl and Midazolam #Cardio - CHF exacerbation vs COPD exacerbation - Troponin downtrendin.42 -> 0.38 -> 0.22 - BNP downtrendin -> 4268 - Lasix 40mg IV given in ED - Watch I&O's - EKG unchanged, c/w prior #Pulm - hypercapneic respiratory failure requiring intubation and sedation - ABG improving, pH normalized to 7.4, pCO2 improved to 49.3 - Duonebs RQID - Solu-medrol 125mg x1 given in ED. Continue Solu-medrol 60mg Q8hr - CXR shows congestive and infiltrative changes with widened mediastinum - Vent settings at: Rate: 12, Tidal Volume: 400, FiO2: 40, PEEP: 5 - attempted to wean patient this morning, failed trial, will attempt again tomorrow morning #ID - WBC downtrending, 15.1 -> 14.2 - Continue Rocephin and start Azithromycin for empiric pneumonia coverage - Vanc x1 and Rocephin x1 given in ED - Blood Cx, Legionella antigen, Urine Cx pending - Influenza and RSV tests pending #Renal - JUANCARLOS, Cr elevated to 1.4 on current admission from 0.5 on prior admissions. - BUN/Cr now at 38.6/1.0 - Started on Lasix 40mg BID - Hold IVF as patient is currently in a volume overloaded state #Heme - Hgb/Hct at 14.2/43.4 #GI - AST/ALT at 38/49, - Alk phos downtrending, now at 130 - no acute issues #Prophylaxis - Heparin - Protonix #FEN - no IVF due to concern for volume overloaded state - NPO while intubated #Dispo - Continue ICU monitoring Visit type - Emergency Visit Emergency Visit: Yes ED Registration Date: 01/25/19 Care time: The patient presented to the Emergency Department on the above date and was hospitalized for further evaluation of their emergent condition. - New Patient This patient is new to me today: Yes Date on this admission: 01/26/19 - Critical Care Critical Care patient: Yes Total Critical Care Time (in minutes): 36 Critical Care Statement: The care of this patient involved high complexity decision making to prevent further life threatening deterioration of the patient 's condition and/or to evaluate & treat vital organ system(s) failure or risk of failure. ATTENDING PHYSICIAN STATEMENT I saw and evaluated the patient. I reviewed the resident's note and discussed the case with the resident. I agree with the resident's findings and plan as documented. SUBJECTIVE: OBJECTIVE: ASSESSMENT AND PLAN:
[2019-01-26] MEDS: ALBUTEROL SO4 2.5/IPRATROPIUM 0.5 INH SOL 3 ML VIAL.NEB. NEB SCH ×3 (12:24→20:31)
[2019-01-26] MEDS: PANTOPRAZOLE SODIUM 40 MG VIAL IVPUSH SCH (12:35)
--- NOTE | 2019-01-26 12:55 | PN ---
Progress Note, Physician History of Present Illness: Pt seen and examined at bedside. She remains in the ICU. SHe remains intubated. - Current Medication List Current Medications: Active Medications Albuterol/Ipratropium (Duoneb -) 1 amp NEB RQID [facility] Last Admin: 01/26/19 12:24 Dose: 1 amp Chlorhexidine Gluconate (Hibiclens For Decolonization -) 1 applic TP HS [facility] Last Admin: 01/25/19 21:01 Dose: 1 applic Furosemide (Lasix Injection -) 40 mg IVPUSH BID@0600,1400 DONTA Heparin Sodium (Porcine) (Heparin -) 5,000 unit SQ BID [facility] Last Admin: 01/26/19 10:30 Dose: 5,000 unit Midazolam HCl 100 mg/ Sodium (Chloride) 100 mls @ 2 mls/hr IVPB TITR [facility]; Protocol Last Titration: 01/26/19 11:30 Dose: 8 mg/hr, 8 mls/hr Fentanyl 500 mcg/ Dextrose 100 mls @ 10 mls/hr IVPB TITR [facility]; Protocol Last Titration: 01/26/19 11:30 Dose: 50 mcg/hr, 10 mls/hr Azithromycin (Zithromax 500mg Ivpb (Pre-Docked)) 500 mg in 250 mls @ 250 mls/ hr IVPB DAILY [facility] Last Admin: 01/26/19 10:35 Dose: 250 mls/hr Ceftriaxone Sodium 2 gm/ (Dextrose) 100 mls @ 200 mls/hr IVPB DAILY [facility]; Protocol Last Admin: 01/26/19 11:29 Dose: 200 mls/hr Methylprednisolone Sodium Succinate (Solu-Medrol -) 60 mg IVPUSH Q8H-IV [facility] Stop: 01/27/19 12:00 Last Admin: 01/26/19 10:35 Dose: 60 mg Metoprolol Tartrate (Lopressor Injection -) 5 mg IVPUSH Q4H PRN PRN Reason: HYPERTENSION Mupirocin (Bactroban Ointment (For Decolonization) -) 1 applic NS BID [facility] Stop: 01/30/19 21:59 Last Admin: 01/25/19 21:00 Dose: 1 applic Pantoprazole Sodium (Protonix Iv) 40 mg IVPUSH DAILY [facility] - Objective Vital Signs: Vital Signs Temperature 98.1 F 01/26/19 10:00 Pulse Rate 89 01/26/19 12:00 Respiratory Rate 18 01/26/19 12:22 Blood Pressure 142/81 01/26/19 12:00 O2 Sat by Pulse Oximetry (%) 97 01/26/19 09:44 Constitutional: Yes: Calm Eyes: Yes: Conjunctiva Clear HENT: Yes: Atraumatic Cardiovascular: Yes: S1, S2 Respiratory: Yes: Mechanically Ventilated Gastrointestinal: Yes: Normal Bowel Sounds, Soft, Abdomen, Obese Genitourinary: Yes: Villalba Present Edema: Yes Edema: LLE: 1+, RLE: 1+ Neurological: Yes: Lethargy Labs: CBC, BMP 01/26/19 05:30 01/26/19 05:30 Assessment/Plan Current Medications Generic Name Dose Route Start Last Admin Trade Name Brad PRN Reason Stop Dose Admin Albuterol/Ipratropium 1 amp 01/26/19 12:00 01/26/19 12:24 Duoneb - NEB 1 amp RQID DONTA Administration Chlorhexidine Gluconate 1 applic 01/25/19 22:00 01/25/19 21:01 Hibiclens For Decolonization - TP 1 applic HS DONTA Administration Furosemide 40 mg 01/26/19 14:00 Lasix Injection - IVPUSH BID@0600,1400 DONTA Heparin Sodium (Porcine) 5,000 unit 01/25/19 22:00 01/26/19 10:30 Heparin - SQ 5,000 unit BID DONTA Administration Midazolam HCl 100 mg/ Sodium 100 mls @ 2 mls/hr 01/25/19 19:15 01/26/19 11:30 Chloride IVPB 8 mg/hr TITR DONTA 8 mls/hr Titration Protocol 2 MG/HR Fentanyl 500 mcg/ Dextrose 100 mls @ 10 mls/hr 01/25/19 19:32 01/26/19 11:30 IVPB 50 mcg/hr TITR DONTA 10 mls/hr Titration Protocol 50 MCG/HR Azithromycin 500 mg in 250 mls @ 250 mls/hr 01/26/19 10:30 01/26/19 10:35 Zithromax 500mg Ivpb (Pre-Docked) IVPB 250 mls/hr DAILY DONTA Administration Ceftriaxone Sodium 2 gm/ 100 mls @ 200 mls/hr 01/26/19 10:30 01/26/19 11:29 Dextrose IVPB 200 mls/hr DAILY DONTA Administration Protocol Methylprednisolone Sodium Succinate 60 mg 01/26/19 10:30 01/26/19 10:35 Solu-Medrol - IVPUSH 01/27/19 12:00 60 mg Q8H-IV DONTA Administration Metoprolol Tartrate 5 mg 01/25/19 17:08 Lopressor Injection - IVPUSH Q4H PRN HYPERTENSION Mupirocin 1 applic 01/25/19 22:00 01/25/19 21:00 Bactroban Ointment (For Decolonization) - NS 01/30/19 21:59 1 applic BID DONTA Administration Pantoprazole Sodium 40 mg 01/26/19 11:45 Protonix Iv IVPUSH DAILY DONTA Impression 1. JUANCARLOS 2. CHF diastolic 3. COPD on home o2 4. obesity 5. resp acidosis with met alkalosis Plan - renal function is improving - cont lasix - vent support - ua reviewed - renal ultrasound reviewed
[2019-01-26] MEDS: FUROSEMIDE 40 MG/4 ML INJECTABLE VIAL IVPUSH SCH (13:04)
[2019-01-26] MEDS ORDERED: INSULIN SLIDING SCALE (NOVOLOG) 1 VIAL SQ SCH ×2 (13:45→13:52)
--- NOTE | 2019-01-26 14:45 | CONS ---
INFECTIOUS DISEASE CONSULTATION DATE OF CONSULTATION: DATE OF DICTATION: 01/26/2019 REQUESTED BY: Mikel Bradshaw MD HISTORY OF PRESENT ILLNESS: This is a morbidly obese, 68-year-old woman who presented to the emergency room yesterday with worsening shortness of breath. She was hypoxic with an O2 saturation of 76%. She did not tolerate BiPAP with progressive hypercapnia and was intubated in the ER. Per the admitting note, she apparently has had a cough for over a week, but had not gone to see the doctor. Of note, she had an admission, March 28 to April 07, 2018, and at that time she was RSV positive and required respiratory ventilation during that admission as well. PAST MEDICAL HISTORY: Notable for a history of morbid obesity. She has coronary artery disease. She had an HI in the past, CHF, hyperlipidemia, obstructive sleep apnea, COPD on home oxygen, diabetes, and hypertension. SURGICAL HISTORY: Apparently, she has not had any surgery before. SOCIAL HISTORY: She lives in the community. No history of substance use. She drinks occasional glass of wine. She stopped smoking 10 years ago. FAMILY HISTORY: Not obtainable. ALLERGIES: She has no known drug allergies. MEDICATION LIST: Notable for Flovent Diskus, Lasix, Advair, gabapentin, losartan, metformin. The rest of her medications could not be confirmed. REVIEW OF SYSTEMS: Was apparently notable for the recent cough. PHYSICAL EXAMINATION: General: She is a morbidly obese woman in no acute distress. She is intubated and sedated. Vital Signs: Temperature is 98.1, T-maximum is 100.1, pulse of 83, blood pressure 141/81, respiratory rate 16, she is saturating 97% on 60%. HEENT: She is normocephalic. Her eyes are anicteric. She is orally intubated. Lungs: Have diminished breath sounds at the bases. Heart: Regular rate and rhythm. Abdomen: Protuberant. Cannot appreciate any organomegaly. It is soft. Genitourinary: She has a Villalba that is draining slightly cloudy urine. Extremities: Without edema. LABORATORY DATA: White count on admission was 15, today it is 14, hemoglobin 14.2, platelets are 202. BUN 38 and creatinine 1, yesterday were 29 and 1.4. Liver function tests are notable for AST of 38, alkaline phosphatase of 130. Troponin yesterday was 0.42, this morning is 0.22. Urinalysis has trace leukocyte esterase with 12 white cells. IMAGING: Chest x-ray reveals cardiomegaly with congestive changes, cannot rule out pneumonia. In summary, this is a 68-year-old woman admitted with hypercapnic respiratory failure, cannot rule out pneumonia community acquired, morbid obesity, diabetes, COPD exacerbation. Ventilator management and management of COPD, per the ICU team. She has been started on steroids, as well. Would treat her with ceftriaxone and Zithromax. Would agree with the influenza screen that has been ordered. Urinary antigens, as well as a sputum culture, blood cultures, and urine culture are all pending, at this time. Case was discussed with the ICU team. Further recommendations to follow. YENNI CERVANTES M.D. [id number]
[2019-01-26] MEDS: INSULIN SLIDING SCALE (NOVOLOG) 1 VIAL SQ SCH ×2 (18:03→23:21)
[2019-01-26] MEDS: FENTANYL INJECTION 500 MCG in DEXTROSE 5%-WATER - 90 ML IVPB SCH (20:13)
[2019-01-26] MEDS: MIDAZOLAM 100 MG in SODIUM CHLORIDE 100 ML IVPB SCH (20:13)
[2019-01-26] MEDS: CHLORHEXIDINE GLUCONATE 4% CLEANSER FOR DECOLONIZATION TP SCH (21:59)
[2019-01-27] MEDS: methylPREDNISolone NA SUCC 40 MG/1 ML VIAL IVPUSH SCH ×2 (01:31→09:24)
[2019-01-27] MEDS ORDERED: fentaNYL CITRATE 250 MCG/5 ML VIAL ONE (04:33)
[2019-01-27] MEDS: FENTANYL INJECTION 500 MCG in DEXTROSE 5%-WATER - 90 ML IVPB SCH (04:48)
[2019-01-27] MEDS: FUROSEMIDE 40 MG/4 ML INJECTABLE VIAL IVPUSH SCH ×2 (06:00→13:51)
[2019-01-27] MEDS: INSULIN SLIDING SCALE (NOVOLOG) 1 VIAL SQ SCH ×4 (06:01→23:21)
[2019-01-27] MEDS ORDERED: MIDAZOLAM IN 0.9 % SOD.CHLORID 1 MG/1 ML PLAST..BAG ONE (06:17)
[2019-01-27] MEDS: MIDAZOLAM 100 MG in SODIUM CHLORIDE 100 ML IVPB SCH (06:19)
[2019-01-27 06:58] LABS: BASO % 0.1 % (0-2.0); HEMATOCRIT 43.9 % (32.4-45.2); HEMOGLOBIN 13.8 GM/dL (10.7-15.3); LYMPH % 7.4 % (8-40); MCH 27.1 pg (25.7-33.7); MCHC 31.5 g/dl (32.0-36.0); MEAN CELL VOLUME 86.1 fl (80-96); MEAN PLT VOLUME 10.4 fl (7.5-11.1); MONO % 3.8 % (3.8-10.2); NEUT % 88.7 % (42.8-82.8); PLATELET COUNT 211 K/MM3 (134-434); RDW 15.8 % (11.6-15.6); WHITE BLOOD COUNT 12.5 K/mm3 (4.0-10.0)
[2019-01-27 07:21] LABS: ALBUMIN 2.4 g/dl (3.4-5.0); BILIRUBIN,TOTAL 0.5 mg/dL (0.2-1); BLOOD UREA NITROGEN 38.6 mg/dL (7-18); CALCIUM 8.8 mg/dL (8.5-10.1); CREATININE 0.8 mg/dL (0.55-1.3); MAGNESIUM 2.1 mg/dL (1.8-2.4); PHOSPHOROUS 4.9 mg/dL (2.5-4.9); POTASSIUM 5.3 mmol/L (3.5-5.1); TOT PROT 6.8 g/dl (6.4-8.2)
--- NOTE | 2019-01-27 08:14 | PN ---
Physical Exam: SUBJECTIVE: Patient seen and examined. No acute events overnight. Pt remains intubated and sedated. OBJECTIVE: Vital Signs Period Temp Pulse Resp BP Sys/Garner Pulse Ox Last 24 Hr 97.7 F-99.3 F 60-89 12-21 119-153/69-83 93-97 GENERAL: Intubated, sedated LUNGS: intubated, reduced breath sounds and intermittent crackles gayle, no wheezing, no accessory muscle use HEART: Regular rate and rhythm, S1, S2 without murmur, rub or gallop. ABDOMEN: obese, normoactive bowel sounds, soft, nontender, non distended EXTREMITIES: 2+ edema of BLE, warm, no rash Laboratory Results - last 24 hr 01/26/19 01/26/19 01/26/19 05:30 05:30 08:25 WBC RBC Hgb Hct MCV MCH MCHC RDW Plt Count MPV Absolute Neuts (auto) Neutrophils % Lymphocytes % Monocytes % Eosinophils % Basophils % Nucleated RBC % Puncture Site Right radial ABG pH 7.40 ABG pCO2 at Pt Temp 49.3 H ABG pO2 at Pt Temp 81.1 ABG HCO3 29.9 H ABG O2 Sat (Measured) 95.0 ABG O2 Content No Result Required. ABG Base Excess 4.4 H Dwayne Test Positive O2 Delivery Device Vent Oxygen Flow Rate 60% Vent Mode A/c Vent Rate 16 Mechanical Rate Yes PEEP 5.0 Pressure Support Vent 450 Sodium 139 Potassium 4.6 Chloride 102 Carbon Dioxide 27 Anion Gap 10 BUN 38.6 H Creatinine 1.0 Est GFR (CKD-EPI)AfAm 67.99 Est GFR (CKD-EPI)NonAf 58.66 POC Glucometer Random Glucose 167 H Hemoglobin A1c % 7.5 H Calcium 8.8 Phosphorus 3.8 Magnesium 1.8 Total Bilirubin 0.7 AST 38 H ALT 49 Alkaline Phosphatase 130 H Creatine Kinase 142 Troponin I 0.22 H B-Natriuretic Peptide 4268.6 H Total Protein 7.1 Albumin 2.7 L Influenza A (Rapid) Influenza B (Rapid) RSV Rapid 01/26/19 01/26/19 01/26/19 10:00 10:00 11:24 WBC RBC Hgb Hct MCV MCH MCHC RDW Plt Count MPV Absolute Neuts (auto) Neutrophils % Lymphocytes % Monocytes % Eosinophils % Basophils % Nucleated RBC % Puncture Site ABG pH ABG pCO2 at Pt Temp ABG pO2 at Pt Temp ABG HCO3 ABG O2 Sat (Measured) ABG O2 Content ABG Base Excess Dwayne Test O2 Delivery Device Oxygen Flow Rate Vent Mode Vent Rate Mechanical Rate PEEP Pressure Support Vent Sodium Potassium Chloride Carbon Dioxide Anion Gap BUN Creatinine Est GFR (CKD-EPI)AfAm Est GFR (CKD-EPI)NonAf POC Glucometer 151 Random Glucose Hemoglobin A1c % Calcium Phosphorus Magnesium Total Bilirubin AST ALT Alkaline Phosphatase Creatine Kinase Troponin I B-Natriuretic Peptide Total Protein Albumin Influenza A (Rapid) Negative Influenza B (Rapid) Negative RSV Rapid Negative 01/26/19 01/26/19 01/27/19 17:03 23:17 05:57 WBC RBC Hgb Hct MCV MCH MCHC RDW Plt Count MPV Absolute Neuts (auto) Neutrophils % Lymphocytes % Monocytes % Eosinophils % Basophils % Nucleated RBC % Puncture Site ABG pH ABG pCO2 at Pt Temp ABG pO2 at Pt Temp ABG HCO3 ABG O2 Sat (Measured) ABG O2 Content ABG Base Excess Dwayne Test O2 Delivery Device Oxygen Flow Rate Vent Mode Vent Rate Mechanical Rate PEEP Pressure Support Vent Sodium Potassium Chloride Carbon Dioxide Anion Gap BUN Creatinine Est GFR (CKD-EPI)AfAm Est GFR (CKD-EPI)NonAf POC Glucometer 180 195 185 Random Glucose Hemoglobin A1c % Calcium Phosphorus Magnesium Total Bilirubin AST ALT Alkaline Phosphatase Creatine Kinase Troponin I B-Natriuretic Peptide Total Protein Albumin Influenza A (Rapid) Influenza B (Rapid) RSV Rapid 01/27/19 01/27/19 06:15 06:15 WBC 12.5 H RBC 5.10 Hgb 13.8 Hct 43.9 MCV 86.1 MCH 27.1 MCHC 31.5 L RDW 15.8 H Plt Count 211 MPV 10.4 Absolute Neuts (auto) 11.1 H Neutrophils % 88.7 H Lymphocytes % 7.4 L Monocytes % 3.8 Eosinophils % 0.0 Basophils % 0.1 Nucleated RBC % 0 Puncture Site ABG pH ABG pCO2 at Pt Temp ABG pO2 at Pt Temp ABG HCO3 ABG O2 Sat (Measured) ABG O2 Content ABG Base Excess Dwayne Test O2 Delivery Device Oxygen Flow Rate Vent Mode Vent Rate Mechanical Rate PEEP Pressure Support Vent Sodium 140 Potassium 5.3 H Chloride 104 Carbon Dioxide 28 Anion Gap 9 BUN 38.6 H Creatinine 0.8 Est GFR (CKD-EPI)AfAm 89.04 Est GFR (CKD-EPI)NonAf 76.83 POC Glucometer Random Glucose 192 H Hemoglobin A1c % Calcium 8.8 Phosphorus 4.9 Magnesium 2.1 Total Bilirubin 0.5 AST 33 ALT 47 Alkaline Phosphatase 116 Creatine Kinase Troponin I B-Natriuretic Peptide Total Protein 6.8 Albumin 2.4 L Influenza A (Rapid) Influenza B (Rapid) RSV Rapid Active Medications Generic Name Dose Route Start Last Admin Trade Name Wildq PRN Reason Stop Dose Admin Albuterol/Ipratropium 1 amp 01/26/19 12:00 01/26/19 20:31 Duoneb - NEB 1 amp RQID DONTA Administration Chlorhexidine Gluconate 1 applic 01/25/19 22:00 01/26/19 21:59 Hibiclens For Decolonization - TP 1 applic HS DONTA Administration Furosemide 40 mg 01/26/19 14:00 01/27/19 06:00 Lasix Injection - IVPUSH 40 mg BID@0600,1400 DONTA Administration Heparin Sodium (Porcine) 5,000 unit 01/25/19 22:00 01/26/19 21:59 Heparin - SQ 5,000 unit BID DONTA Administration Midazolam HCl 100 mg/ Sodium 100 mls @ 2 mls/hr 01/25/19 19:15 01/27/19 07:54 Chloride IVPB 5 mg/hr TITR DONTA 5 mls/hr Titration Protocol 2 MG/HR Fentanyl 500 mcg/ Dextrose 100 mls @ 10 mls/hr 01/25/19 19:32 01/27/19 04:54 IVPB 55 mcg/hr TITR DONTA 11 mls/hr Titration Protocol 50 MCG/HR Azithromycin 500 mg in 250 mls @ 250 mls/hr 01/26/19 10:30 01/26/19 10:35 Zithromax 500mg Ivpb (Pre-Docked) IVPB 250 mls/hr DAILY DONTA Administration Ceftriaxone Sodium 2 gm/ 100 mls @ 200 mls/hr 01/26/19 10:30 01/26/19 11:29 Dextrose IVPB 200 mls/hr DAILY DONTA Administration Protocol Insulin Aspart 1 vial 01/26/19 18:00 01/27/19 06:01 Novolog Vial Sliding Scale - SQ 2 units Q6HPO DONTA Administration Protocol Methylprednisolone Sodium Succinate 60 mg 01/26/19 10:30 01/27/19 01:31 Solu-Medrol - IVPUSH 01/27/19 12:00 60 mg Q8H-IV DONTA Administration Metoprolol Tartrate 5 mg 01/25/19 17:08 Lopressor Injection - IVPUSH Q4H PRN HYPERTENSION Mupirocin 1 applic 01/25/19 22:00 01/26/19 21:59 Bactroban Ointment (For Decolonization) - NS 01/30/19 21:59 1 applic BID DONTA Administration Pantoprazole Sodium 40 mg 01/26/19 11:45 01/26/19 12:35 Protonix Iv IVPUSH 40 mg DAILY DONTA Administration ASSESSMENT/PLAN: 68F with a PMH of h/o morbid obesity, COPD (on 2LPM home O2), CHF, LEONIDES (non- adherent to CPAP), NSTEMI, DM, HTN, and HLD who presents with hypercapniec respiratory failure, CHF exacerbation, and questionable PNA requiring intubation and admission to ICU. #Neuro - intubated - extubate if pass CPAP trial - wean off Fentanyl and Midazolam #Cardio - CHF vs COPD exacerbation vs PNA - given Lasix 40mg IV today for congestion - DVT ppx #Pulm - hypercapneic respiratory failure requiring intubation, hx COPD, LEONIDES - Duonebs RQID, Solu-medrol 60mg Q8hr - CXR 01/27 shows worsening congestive and infiltrative changes R>L with widened mediastinum - Vent settings at: Rate: 12, Tidal Volume: 400, FiO2: 40, PEEP: 5 - wean patient off vent to HiFlo #ID - leukocytosis - WBC downtrending, 14 to 12.5 - Rocephin, Azithromycin for empiric pneumonia coverage - Blood Cx, Legionella antigen, Urine Cx, influenza/RSV neg #Renal - JUANCARLOS - BUN/Cr at 38/0.8 - I/O - koenig #Heme - Hgb wnl, monitor #GI - LFTs wnl, no acute issues - remove NG tube w extubation, advance diet as tolerated - GI ppx #Prophylaxis - Heparin - Protonix #FEN - no fluids - hyperCl - no nutrition #Dispo - ICU Visit type - Emergency Visit Emergency Visit: Yes ED Registration Date: 01/25/19 Care time: The patient presented to the Emergency Department on the above date and was hospitalized for further evaluation of their emergent condition. - New Patient This patient is new to me today: Yes Date on this admission: 01/27/19 - Critical Care Critical Care patient: Yes Total Critical Care Time (in minutes): 36 Critical Care Statement: The care of this patient involved high complexity decision making to prevent further life threatening deterioration of the patient 's condition and/or to evaluate & treat vital organ system(s) failure or risk of failure. ATTENDING PHYSICIAN STATEMENT I saw and evaluated the patient. I reviewed the resident's note and discussed the case with the resident. I agree with the resident's findings and plan as documented. SUBJECTIVE: OBJECTIVE: ASSESSMENT AND PLAN:
[2019-01-27] MEDS: ALBUTEROL SO4 2.5/IPRATROPIUM 0.5 INH SOL 3 ML VIAL.NEB. NEB SCH ×4 (08:45→20:38)
[2019-01-27] MEDS ORDERED: DEXTROSE 5%-WATER 100 ML IVPB ONE (09:12)
[2019-01-27] MEDS: CEFTRIAXONE 2 GM in DEXTROSE 5%-WATER 100 ML IVPB SCH (09:16)
[2019-01-27] MEDS: HEPARIN NA (PORCINE) 5,000 UNITS/ML 1ML VIAL SQ SCH ×2 (09:20→22:59)
[2019-01-27] MEDS: PANTOPRAZOLE SODIUM 40 MG VIAL IVPUSH SCH (09:29)
[2019-01-27] MEDS: MUPIROCIN 2% TOPICAL OINTMENT FOR DECOLONIZATION NS SCH ×2 (09:32→23:01)
[2019-01-27] MEDS: AZITHROMYCIN IVPB 500 MG/250 ML BAG IVPB SCH (11:01)
--- NOTE | 2019-01-27 12:07 | PN ---
Progress Note, Physician Chief Complaint: patient seen and examined in icu intubated on the vent on cpap mode fentanyl and versed is switched off - Current Medication List Current Medications: Active Medications Albuterol/Ipratropium (Duoneb -) 1 amp NEB RQID [facility] Last Admin: 01/27/19 08:45 Dose: 1 amp Chlorhexidine Gluconate (Hibiclens For Decolonization -) 1 applic TP HS [facility] Last Admin: 01/26/19 21:59 Dose: 1 applic Furosemide (Lasix Injection -) 40 mg IVPUSH BID@0600,1400 [facility] Last Admin: 01/27/19 06:00 Dose: 40 mg Heparin Sodium (Porcine) (Heparin -) 5,000 unit SQ BID [facility] Last Admin: 01/27/19 09:20 Dose: 5,000 unit Midazolam HCl 100 mg/ Sodium (Chloride) 100 mls @ 2 mls/hr IVPB TITR [facility]; Protocol Last Titration: 01/27/19 10:31 Dose: 0 mg/hr, 0 mls/hr Fentanyl 500 mcg/ Dextrose 100 mls @ 10 mls/hr IVPB TITR [facility]; Protocol Last Titration: 01/27/19 10:37 Dose: 0 mcg/hr, 0 mls/hr Azithromycin (Zithromax 500mg Ivpb (Pre-Docked)) 500 mg in 250 mls @ 250 mls/ hr IVPB DAILY [facility] Last Admin: 01/27/19 11:01 Dose: 250 mls/hr Ceftriaxone Sodium 2 gm/ (Dextrose) 100 mls @ 200 mls/hr IVPB DAILY [facility]; Protocol Last Admin: 01/27/19 09:16 Dose: 200 mls/hr Insulin Aspart (Novolog Vial Sliding Scale -) 1 vial SQ Q6HPO [facility]; Protocol Last Admin: 01/27/19 06:01 Dose: 2 units Metoprolol Tartrate (Lopressor Injection -) 5 mg IVPUSH Q4H PRN PRN Reason: HYPERTENSION Mupirocin (Bactroban Ointment (For Decolonization) -) 1 applic NS BID [facility] Stop: 01/30/19 21:59 Last Admin: 01/27/19 09:32 Dose: 1 applic Pantoprazole Sodium (Protonix Iv) 40 mg IVPUSH DAILY [facility] Last Admin: 01/27/19 09:29 Dose: 40 mg - Objective Vital Signs: Vital Signs Temperature 97.5 F L 01/27/19 10:00 Pulse Rate 95 H 01/27/19 12:00 Respiratory Rate 26 H 01/27/19 12:00 Blood Pressure 109/96 01/27/19 12:00 O2 Sat by Pulse Oximetry (%) 94 L 01/27/19 08:21 Constitutional: Yes: Calm Cardiovascular: Yes: Regular Rate and Rhythm, S1, S2 Respiratory: Yes: Mechanically Ventilated Gastrointestinal: Yes: Normal Bowel Sounds, Soft Genitourinary: Yes: Villalba Present Edema: Yes Labs: CBC, BMP 01/27/19 06:15 01/27/19 06:15 Problem List - Problems (1) Hypercapnic respiratory failure Assessment/Plan: intubated on cpap mode fio2 40% off sedation, trying to extubated to HFOT bronchodilators dvt ppx Code(s): J96.92 - RESPIRATORY FAILURE, UNSPECIFIED WITH HYPERCAPNIA Qualifiers: Chronicity: unspecified Qualified Code(s): J96.92 - Respiratory failure, unspecified with hypercapnia (2) Leukocytosis Assessment/Plan: iv abx possible pna ID on board Code(s): D72.829 - ELEVATED WHITE BLOOD CELL COUNT, UNSPECIFIED (3) CHF (congestive heart failure) Assessment/Plan: iv lasix bid cardiology on board Code(s): I50.9 - HEART FAILURE, UNSPECIFIED Qualifiers: Heart failure type: diastolic Heart failure chronicity: acute on chronic Qualified Code(s): I50.33 - Acute on chronic diastolic (congestive) heart failure
--- NOTE | 2019-01-27 12:17 | PN ---
Teaching Attending Note Name of Resident: Iglesia Mccarthy ATTENDING PHYSICIAN STATEMENT I saw and evaluated the patient. I reviewed the resident's note and discussed the case with the resident. I agree with the resident's findings and plan as documented. SUBJECTIVE: Patient seen and examined in the ICU. Remains intubated, sedated on Versed and Fentanyl. Om CPAP Mode of vent, 40% FiO2. No pressors. Intake & Output 01/24/19 01/25/19 01/26/19 01/27/19 23:59 23:59 23:59 23:59 Intake Total 10 720 199 Output Total 2300 650 Balance 10 -1580 -935 Weight 303 lb 303 lb Last Vital Signs Temp Pulse Resp BP Pulse Ox 97.5 F L 80 25 H 125/99 94 L 01/27/19 10:00 01/27/19 11:00 01/27/19 11:00 01/27/19 11:00 01/27/19 08:21 Active Medications Albuterol/Ipratropium (Duoneb -) 1 amp NEB RQID DONTA Last Admin: 01/27/19 08:45 Dose: 1 amp Chlorhexidine Gluconate (Hibiclens For Decolonization -) 1 applic TP HS [facility] Last Admin: 01/26/19 21:59 Dose: 1 applic Furosemide (Lasix Injection -) 40 mg IVPUSH BID@0600,1400 [facility] Last Admin: 01/27/19 06:00 Dose: 40 mg Heparin Sodium (Porcine) (Heparin -) 5,000 unit SQ BID [facility] Last Admin: 01/27/19 09:20 Dose: 5,000 unit Midazolam HCl 100 mg/ Sodium (Chloride) 100 mls @ 2 mls/hr IVPB TITR [facility]; Protocol Last Titration: 01/27/19 10:31 Dose: 0 mg/hr, 0 mls/hr Fentanyl 500 mcg/ Dextrose 100 mls @ 10 mls/hr IVPB TITR [facility]; Protocol Last Titration: 01/27/19 10:37 Dose: 0 mcg/hr, 0 mls/hr Azithromycin (Zithromax 500mg Ivpb (Pre-Docked)) 500 mg in 250 mls @ 250 mls/ hr IVPB DAILY [facility] Last Admin: 01/27/19 11:01 Dose: 250 mls/hr Ceftriaxone Sodium 2 gm/ (Dextrose) 100 mls @ 200 mls/hr IVPB DAILY [facility]; Protocol Last Admin: 01/27/19 09:16 Dose: 200 mls/hr Insulin Aspart (Novolog Vial Sliding Scale -) 1 vial SQ Q6HPO [facility]; Protocol Last Admin: 01/27/19 06:01 Dose: 2 units Methylprednisolone Sodium Succinate (Solu-Medrol -) 60 mg IVPUSH Q8H-IV DONTA Stop: 01/27/19 12:00 Last Admin: 01/27/19 09:24 Dose: 60 mg Metoprolol Tartrate (Lopressor Injection -) 5 mg IVPUSH Q4H PRN PRN Reason: HYPERTENSION Mupirocin (Bactroban Ointment (For Decolonization) -) 1 applic NS BID DONTA Stop: 01/30/19 21:59 Last Admin: 01/27/19 09:32 Dose: 1 applic Pantoprazole Sodium (Protonix Iv) 40 mg IVPUSH DAILY [facility]TA Last Admin: 01/27/19 09:29 Dose: 40 mg Gen: intubated, lightly sedated Heart: RRR Lung: distant breath sounds Abd: soft, nontender Ext: + edema Laboratory Results - last 24 hr 01/26/19 01/26/19 01/26/19 05:30 17:03 23:17 WBC RBC Hgb Hct MCV MCH MCHC RDW Plt Count MPV Absolute Neuts (auto) Neutrophils % Lymphocytes % Monocytes % Eosinophils % Basophils % Nucleated RBC % Sodium Potassium Chloride Carbon Dioxide Anion Gap BUN Creatinine Est GFR (CKD-EPI)AfAm Est GFR (CKD-EPI)NonAf POC Glucometer 180 195 Random Glucose Hemoglobin A1c % 7.5 H Calcium Phosphorus Magnesium Total Bilirubin AST ALT Alkaline Phosphatase Total Protein Albumin 01/27/19 01/27/19 01/27/19 05:57 06:15 06:15 WBC 12.5 H RBC 5.10 Hgb 13.8 Hct 43.9 MCV 86.1 MCH 27.1 MCHC 31.5 L RDW 15.8 H Plt Count 211 MPV 10.4 Absolute Neuts (auto) 11.1 H Neutrophils % 88.7 H Lymphocytes % 7.4 L Monocytes % 3.8 Eosinophils % 0.0 Basophils % 0.1 Nucleated RBC % 0 Sodium 140 Potassium 5.3 H Chloride 104 Carbon Dioxide 28 Anion Gap 9 BUN 38.6 H Creatinine 0.8 Est GFR (CKD-EPI)AfAm 89.04 Est GFR (CKD-EPI)NonAf 76.83 POC Glucometer 185 Random Glucose 192 H Hemoglobin A1c % Calcium 8.8 Phosphorus 4.9 Magnesium 2.1 Total Bilirubin 0.5 AST 33 ALT 47 Alkaline Phosphatase 116 Total Protein 6.8 Albumin 2.4 L ASSESSMENT AND PLAN: Acute on Chronic Hypoxic and Hypercapneic Respiratory Failure Acute on Chronic Diastolic Heart Failure Acute Kidney Injury r/o Acute COPD Exacerbation r/o Pneumonia HTN DM Hyperlipidemia Obstructive Sleep Apnea - continue lasix - monitor urine output, creatinine - daily weights - continue empiric antibiotics - f/u cultures - Medrol - inhaled bronchodilators - Sedation vacations to assess mental status - Spontaneous breathing trials as tolerated, will extubate to HFOT - DVT prophylaxis - Requires continued ICU monitoring Dr Paige Critical care time spent in reviewing chart, evaluating patient and formulating plan 35 min
--- NOTE | 2019-01-27 14:04 | PN ---
Progress Note (short form) - Note Progress Note: extubated this am on high flow oxygen alert daughter at bedside no complaints Vital Signs Period Temp Pulse Resp BP Sys/Garner Pulse Ox Last 24 Hr 97.5 F-98.1 F 60-95 12-26 109-153/69-99 94-96 cor-rrr lungs decreased bs at bases abd soft,nt ext no edema CBC, BMP 01/27/19 06:15 01/27/19 06:15 Microbiology 01/25/19 16:35 Urine - Urine Villalba Urine Culture - Final NO GROWTH OBTAINED 01/25/19 16:55 Blood - Peripheral Venous Blood Culture - Preliminary NO GROWTH OBTAINED AFTER 24 HOURS, INCUBATION TO CONTINUE FOR 4 DAYS. 01/25/19 16:55 Blood - Peripheral Venous Blood Culture - Preliminary NO GROWTH OBTAINED AFTER 24 HOURS, INCUBATION TO CONTINUE FOR 4 DAYS. 01/26/19 10:00 Sputum - Endotrachea Suction/Ventilator Gram Stain - Final 01/26/19 10:00 Urine For Antigen Detection Legionella Antigen - Final 01/26/19 10:00 Urine For Antigen Detection Streptococcus pneumoniae Antigen (M - Final cxray- congestion, cannot r/o retrocardiac infiltrate a/p hypercapneic respiratory failure-just extubated cannot r/o pneumonia (CAP) morbid obesity DM COPD exacerbation on home oxygen rocephin/zithromax to continue f/u cultures Problem List - Problems (1) Hypercapnic respiratory failure Code(s): J96.92 - RESPIRATORY FAILURE, UNSPECIFIED WITH HYPERCAPNIA Qualifiers: Chronicity: unspecified Qualified Code(s): J96.92 - Respiratory failure, unspecified with hypercapnia (2) Pneumonia Code(s): J18.9 - PNEUMONIA, UNSPECIFIED ORGANISM Qualifiers: Aspiration pneumonia type: unspecified Laterality: unspecified laterality Lung location: unspecified part of lung (3) Obesity, morbid, BMI 50 or higher Code(s): E66.01 - MORBID (SEVERE) OBESITY DUE TO EXCESS CALORIES (4) COPD exacerbation Code(s): J44.1 - CHRONIC OBSTRUCTIVE PULMONARY DISEASE W (ACUTE) EXACERBATION (5) Diabetes Code(s): E11.9 - TYPE 2 DIABETES MELLITUS WITHOUT COMPLICATIONS
--- NOTE | 2019-01-27 16:21 | PN ---
Progress Note, Physician History of Present Illness: Pt seen and examined at bedside. She was extubated earlier today. - Current Medication List Current Medications: Active Medications Albuterol/Ipratropium (Duoneb -) 1 amp NEB RQID [facility] Last Admin: 01/27/19 12:10 Dose: 1 amp Chlorhexidine Gluconate (Hibiclens For Decolonization -) 1 applic TP HS [facility] Last Admin: 01/26/19 21:59 Dose: 1 applic Furosemide (Lasix Injection -) 40 mg IVPUSH BID@0600,1400 [facility] Last Admin: 01/27/19 13:51 Dose: 40 mg Heparin Sodium (Porcine) (Heparin -) 5,000 unit SQ BID [facility] Last Admin: 01/27/19 09:20 Dose: 5,000 unit Azithromycin (Zithromax 500mg Ivpb (Pre-Docked)) 500 mg in 250 mls @ 250 mls/ hr IVPB DAILY [facility] Last Admin: 01/27/19 11:01 Dose: 250 mls/hr Ceftriaxone Sodium 2 gm/ (Dextrose) 100 mls @ 200 mls/hr IVPB DAILY [facility]; Protocol Last Admin: 01/27/19 09:16 Dose: 200 mls/hr Insulin Aspart (Novolog Vial Sliding Scale -) 1 vial SQ Q6HPO [facility]; Protocol Last Admin: 01/27/19 12:35 Dose: 4 units Metoprolol Tartrate (Lopressor Injection -) 5 mg IVPUSH Q4H PRN PRN Reason: HYPERTENSION Mupirocin (Bactroban Ointment (For Decolonization) -) 1 applic NS BID [facility] Stop: 01/30/19 21:59 Last Admin: 01/27/19 09:32 Dose: 1 applic Pantoprazole Sodium (Protonix Iv) 40 mg IVPUSH DAILY [facility] Last Admin: 01/27/19 09:29 Dose: 40 mg - Objective Vital Signs: Vital Signs Temperature 97.0 F L 01/27/19 14:00 Pulse Rate 81 01/27/19 14:00 Respiratory Rate 20 01/27/19 14:00 Blood Pressure 141/82 01/27/19 14:00 O2 Sat by Pulse Oximetry (%) 94 L 01/27/19 08:21 Constitutional: Yes: Calm Eyes: Yes: Conjunctiva Clear HENT: Yes: Atraumatic Cardiovascular: Yes: S1, S2 Respiratory: Yes: On Venti-Mask Gastrointestinal: Yes: Soft, Abdomen, Obese Genitourinary: Yes: Villalba Present Musculoskeletal: Yes: Muscle Weakness Edema: Yes Edema: LLE: Trace, RLE: Trace Neurological: Yes: Lethargy Labs: CBC, BMP 01/27/19 06:15 01/27/19 06:15 - ....Imaging Chest X-ray: Report Reviewed Assessment/Plan Current Medications Generic Name Dose Route Start Last Admin Trade Name Freq PRN Reason Stop Dose Admin Albuterol/Ipratropium 1 amp 01/26/19 12:00 01/27/19 12:10 Duoneb - NEB 1 amp RQID DONTA Administration Chlorhexidine Gluconate 1 applic 01/25/19 22:00 01/26/19 21:59 Hibiclens For Decolonization - TP 1 applic HS [facility]TA Administration Furosemide 40 mg 01/26/19 14:00 01/27/19 13:51 Lasix Injection - IVPUSH 40 mg BID@0600,1400 [facility] Administration Heparin Sodium (Porcine) 5,000 unit 01/25/19 22:00 01/27/19 09:20 Heparin - SQ 5,000 unit BID [facility] Administration Azithromycin 500 mg in 250 mls @ 250 mls/hr 01/26/19 10:30 01/27/19 11:01 Zithromax 500mg Ivpb (Pre-Docked) IVPB 250 mls/hr DAILY [facility] Administration Ceftriaxone Sodium 2 gm/ 100 mls @ 200 mls/hr 01/26/19 10:30 01/27/19 09:16 Dextrose IVPB 200 mls/hr DAILY [facility] Administration Protocol Insulin Aspart 1 vial 01/26/19 18:00 01/27/19 12:35 Novolog Vial Sliding Scale - SQ 4 units Q6HPO [facility] Administration Protocol Metoprolol Tartrate 5 mg 01/25/19 17:08 Lopressor Injection - IVPUSH Q4H PRN HYPERTENSION Mupirocin 1 applic 01/25/19 22:00 01/27/19 09:32 Bactroban Ointment (For Decolonization) - NS 01/30/19 21:59 1 applic BID [facility] Administration Pantoprazole Sodium 40 mg 01/26/19 11:45 01/27/19 09:29 Protonix Iv IVPUSH 40 mg DAILY [facility] Administration Impression 1. JUANCARLOS 2. CHF diastolic 3. COPD on home o2 4. obesity 5. resp acidosis with met alkalosis 6. hyperkalemia Plan - renal function continues to improve - pt now extubated - lasix should help with potassium - monitor lytes - monitor volume status
[2019-01-27 20:25] LABS: ARTERIAL BLOOD GAS BASE EXCESS 8.4 meq/l (-2-2); ARTERIAL BLOOD GAS PO2 77.5 mmHg (80-100); ARTERIAL BLOOD GAS pH 7.32 (7.35-7.45)
[2019-01-27 20:26] LABS: ALLENS TEST POSITIVE
[2019-01-27 21:52] LABS: ARTERIAL BLOOD GAS pH 7.33 (7.35-7.45)
[2019-01-27 21:53] LABS: ALLENS TEST POSITIVE; ARTERIAL BLD GAS O2 SATURATION 95.8 % (95-98); ARTERIAL BLOOD GAS BASE EXCESS 9.2 meq/l (-2-2); ARTERIAL BLOOD GAS PO2 90.8 mmHg (80-100)
[2019-01-27 21:55] LABS: ARTERIAL BLOOD GAS PCO2 73.5 mmHg (35-45)
[2019-01-27] MEDS: CHLORHEXIDINE GLUCONATE 4% CLEANSER FOR DECOLONIZATION TP SCH (23:00)
[2019-01-28 05:29] LABS: ARTERIAL BLD GAS O2 SATURATION 95.2 % (95-98); ARTERIAL BLOOD GAS BASE EXCESS 9.7 meq/l (-2-2); ARTERIAL BLOOD GAS PCO2 73.2 mmHg (35-45); ARTERIAL BLOOD GAS pH 7.35 (7.35-7.45)
[2019-01-28 05:33] LABS: ARTERIAL BLOOD GAS PO2 84.9 mmHg (80-100)
[2019-01-28 05:34] LABS: ALLENS TEST POSITIVE
[2019-01-28] MEDS: FUROSEMIDE 40 MG/4 ML INJECTABLE VIAL IVPUSH SCH ×2 (06:06→15:11)
[2019-01-28] MEDS: INSULIN SLIDING SCALE (NOVOLOG) 1 VIAL SQ SCH ×3 (06:34→18:33)
--- NOTE | 2019-01-28 07:56 | PN ---
Physical Exam: SUBJECTIVE: Patient seen and examined by the bedside. She is on BiPAP and drowsy , but arousable. Was extubated yesterday and placed on BiPAP. OBJECTIVE: Vital Signs Period Temp Pulse Resp BP Sys/Garner Pulse Ox Last 24 Hr 97.0 F-98.2 F 60-95 12-72 109-148/52-99 94-100 GENERAL: Drowsy but arousable HEAD: Normal with no signs of trauma. EYES:NATHANIEL, EOMI NECK: Trachea midline, limited range of motion due to body habitus LUNGS: Transmitted sounds from BiPAP BL HEART: RRR, NSR ABDOMEN: Soft, nontender, nondistended EXTREMITIES: 2+ edema BL NEUROLOGICAL: Patient drowsy, unable to follow commands SKIN: Warm, dry, normal turgor, no rashes or lesions noted Laboratory Results - last 24 hr 01/27/19 01/27/19 01/27/19 12:31 17:13 20:20 Anticoagulation Therapy No Result Required. Puncture Site Right radial ABG pH 7.32 L ABG pCO2 at Pt Temp 74.0 H* ABG pO2 at Pt Temp 77.5 L ABG HCO3 37.3 H ABG O2 Sat (Measured) 94.0 L ABG O2 Content 19.1 ABG Base Excess 8.4 H Dwayne Test Positive O2 Delivery Device Hiflow Oxygen Flow Rate 40 Vent Mode No Result Required. Vent Rate No Result Required. Mechanical Rate No Result Required. Pressure Support Vent No Result Required. POC Glucometer 216 184 01/27/19 01/27/19 01/28/19 21:40 23:16 05:20 Anticoagulation Therapy No Result Required. Puncture Site Right radial Right radial ABG pH 7.33 L 7.35 ABG pCO2 at Pt Temp 73.5 H* 73.2 H* ABG pO2 at Pt Temp 90.8 84.9 ABG HCO3 38.0 H 38.9 H ABG O2 Sat (Measured) 95.8 95.2 ABG O2 Content 14.6 No Result Required. ABG Base Excess 9.2 H 9.7 H Dwayne Test Positive Positive O2 Delivery Device Bipap Bipap Oxygen Flow Rate 50 40% Vent Mode No Result Required. Vent Rate 16 16 Mechanical Rate No Result Required. Pressure Support Vent 14/6 14/6 POC Glucometer 170 01/28/19 06:31 Anticoagulation Therapy Puncture Site ABG pH ABG pCO2 at Pt Temp ABG pO2 at Pt Temp ABG HCO3 ABG O2 Sat (Measured) ABG O2 Content ABG Base Excess Dwayne Test O2 Delivery Device Oxygen Flow Rate Vent Mode Vent Rate Mechanical Rate Pressure Support Vent POC Glucometer 110 Active Medications Generic Name Dose Route Start Last Admin Trade Name Freq PRN Reason Stop Dose Admin Albuterol/Ipratropium 1 amp 01/26/19 12:00 01/27/19 20:38 Duoneb - NEB 1 amp RQID DONTA Administration Chlorhexidine Gluconate 1 applic 01/25/19 22:00 01/27/19 23:00 Hibiclens For Decolonization - TP 1 applic HS DONTA Administration Furosemide 40 mg 01/26/19 14:00 01/28/19 06:06 Lasix Injection - IVPUSH 40 mg BID@0600,1400 DONTA Administration Heparin Sodium (Porcine) 5,000 unit 01/25/19 22:00 01/27/19 22:59 Heparin - SQ 5,000 unit BID DONTA Administration Azithromycin 500 mg in 250 mls @ 250 mls/hr 01/26/19 10:30 01/27/19 11:01 Zithromax 500mg Ivpb (Pre-Docked) IVPB 250 mls/hr DAILY DONTA Administration Ceftriaxone Sodium 2 gm/ 100 mls @ 200 mls/hr 01/26/19 10:30 01/27/19 09:16 Dextrose IVPB 200 mls/hr DAILY DONTA Administration Protocol Insulin Aspart 1 vial 01/26/19 18:00 01/28/19 06:34 Novolog Vial Sliding Scale - SQ Not Given Q6HPO [facility] Protocol Metoprolol Tartrate 5 mg 01/25/19 17:08 Lopressor Injection - IVPUSH Q4H PRN HYPERTENSION Mupirocin 1 applic 01/25/19 22:00 01/27/19 23:01 Bactroban Ointment (For Decolonization) - NS 01/30/19 21:59 1 applic BID DONTA Administration Pantoprazole Sodium 40 mg 01/26/19 11:45 01/27/19 09:29 Protonix Iv IVPUSH 40 mg DAILY DONTA Administration ASSESSMENT/PLAN: 68F with a PMH of h/o morbid obesity, COPD (on 2LPM home O2), CHF, LEONIDES (non- adherent to CPAP), NSTEMI, DM, HTN, and HLD who presents with hypercapniec respiratory failure, CHF exacerbation, and questionable PNA requiring intubation and admission to ICU. #Neuro - Extubated yesterday, on BiPAP (IPAP 14, EPAP 6, R16, O2 40%) #Cardio - Lasix 40mg BID IV - Lopressor IV Q4H PRN #Pulm - Started on BiPAP (IPAP 14, EPAP 6, R16, O2 40%) - Start NC - CXR: Rt base better aerated, better definition of Rt hemidiaphragm - ABGs: pH 7.35, CO2 73.2, HCO3 38.9, similar to yesterday - Duonebs PRN #ID - WBC 9.4 - Rocephin, Azithromycin Day 3 for empiric pneumonia coverage - Blood Cx, Legionella antigen, Urine Cx, influenza/RSV neg #Endo - Hx of DM, on Novolog SS #Renal - BUN/Cr 38/0.8 -> #GI - Protonix 40mg IV #Prophylaxis - Heparin 5000 SQ TID #FEN - NPO #Dispo - Continue to monitor in ICU Visit type - Emergency Visit Emergency Visit: Yes ED Registration Date: 01/25/19 Care time: The patient presented to the Emergency Department on the above date and was hospitalized for further evaluation of their emergent condition. - New Patient This patient is new to me today: No - Critical Care Critical Care patient: Yes Total Critical Care Time (in minutes): 39 Critical Care Statement: The care of this patient involved high complexity decision making to prevent further life threatening deterioration of the patient 's condition and/or to evaluate & treat vital organ system(s) failure or risk of failure. ATTENDING PHYSICIAN STATEMENT I saw and evaluated the patient. I reviewed the resident's note and discussed the case with the resident. I agree with the resident's findings and plan as documented. SUBJECTIVE: OBJECTIVE: ASSESSMENT AND PLAN:
[2019-01-28] MEDS: ALBUTEROL SO4 2.5/IPRATROPIUM 0.5 INH SOL 3 ML VIAL.NEB. NEB SCH ×4 (07:57→20:40)
--- NOTE | 2019-01-28 08:37 | PN ---
Progress Note, Physician Chief Complaint: Pt is intubated; nods head, moves limbs on verbal request. History of Present Illness: 68-year-old female with history of morbid obesity, COPD on home oxygen at 2 L, diastolic CHF (echo 04/10 with normal EF), HTN, DM, hyperlipidemia, diastolic CHF , now sent in by PCP Dr. Valenzuela for volume overload and increased work of breathing. Patient reports increasing dyspnea over the last 3 days, also reports having difficulty urinating and self discontinuing her Lasix. Denies any fevers or chills or chest pain or pressure, denies palpitations. Worsening orthopnea over the last 72 hours, has required diuresis in the past. - Current Medication List Current Medications: Active Medications Albuterol/Ipratropium (Duoneb -) 1 amp NEB RQID [facility] Last Admin: 01/28/19 07:57 Dose: 1 amp Chlorhexidine Gluconate (Hibiclens For Decolonization -) 1 applic TP HS [facility] Last Admin: 01/27/19 23:00 Dose: 1 applic Furosemide (Lasix Injection -) 40 mg IVPUSH BID@0600,1400 [facility] Last Admin: 01/28/19 06:06 Dose: 40 mg Heparin Sodium (Porcine) (Heparin -) 5,000 unit SQ BID [facility] Last Admin: 01/27/19 22:59 Dose: 5,000 unit Azithromycin (Zithromax 500mg Ivpb (Pre-Docked)) 500 mg in 250 mls @ 250 mls/ hr IVPB DAILY [facility] Last Admin: 01/27/19 11:01 Dose: 250 mls/hr Ceftriaxone Sodium 2 gm/ (Dextrose) 100 mls @ 200 mls/hr IVPB DAILY [facility]; Protocol Last Admin: 01/27/19 09:16 Dose: 200 mls/hr Insulin Aspart (Novolog Vial Sliding Scale -) 1 vial SQ Q6HPO [facility]; Protocol Last Admin: 01/28/19 06:34 Dose: Not Given Metoprolol Tartrate (Lopressor Injection -) 5 mg IVPUSH Q4H PRN PRN Reason: HYPERTENSION Mupirocin (Bactroban Ointment (For Decolonization) -) 1 applic NS BID [facility] Stop: 01/30/19 21:59 Last Admin: 01/27/19 23:01 Dose: 1 applic Pantoprazole Sodium (Protonix Iv) 40 mg IVPUSH DAILY DONTA Last Admin: 01/27/19 09:29 Dose: 40 mg - Objective Vital Signs: Vital Signs Temperature 97.4 F L 01/28/19 06:00 Pulse Rate 69 01/28/19 02:00 Respiratory Rate 18 01/28/19 06:00 Blood Pressure 119/52 L 01/28/19 06:00 O2 Sat by Pulse Oximetry (%) 99 01/28/19 07:56 Constitutional: Yes: Obese Eyes: Yes: WNL HENT: Yes: WNL Neck: Yes: Decreased ROM Cardiovascular: Yes: S1, S2 Respiratory: Yes: Diminished Gastrointestinal: Yes: Soft, Abdomen, Obese ...Rectal Exam: Yes: Deferred Genitourinary: No: Anuria Breast(s): Yes: WNL Musculoskeletal: Yes: Joint Stiffness, Muscle Weakness Extremities: Yes: Cool Edema: No Peripheral Pulses WNL: Yes Integumentary: Yes: WNL Neurological: Yes: WNL Psychiatric: Yes: Alert, Oriented, Other (addiction) Labs: CBC, BMP 01/27/19 06:15 01/27/19 06:15 Abnormal Lab Results 01/27/19 01/27/19 01/28/19 20:20 21:40 05:20 RBC Hct RDW ABG pH 7.32 L 7.33 L ABG pCO2 at Pt Temp 74.0 H* 73.5 H* 73.2 H* ABG pO2 at Pt Temp 77.5 L ABG HCO3 37.3 H 38.0 H 38.9 H ABG O2 Sat (Measured) 94.0 L ABG Base Excess 8.4 H 9.2 H 9.7 H Carbon Dioxide Anion Gap BUN Random Glucose Albumin Cholesterol Total LDL Cholesterol 01/28/19 01/28/19 10:30 10:30 RBC 5.40 H Hct 46.0 H RDW 15.9 H ABG pH ABG pCO2 at Pt Temp ABG pO2 at Pt Temp ABG HCO3 ABG O2 Sat (Measured) ABG Base Excess Carbon Dioxide 40 H Anion Gap 4 L BUN 42.1 H Random Glucose 145 H Albumin 2.7 L Cholesterol 211 H Total LDL Cholesterol 140 H - ....Imaging Chest X-ray: Image Reviewed EKG: Image Reviewed Other: Image Reviewed (telemetry: NSR; periods of sinus tachycardia) Problem List - Problems (1) COPD exacerbation Assessment/Plan: Intubated; plans for extubation today. O2, bronchodilators, steroids per pumonologist. Code(s): J44.1 - CHRONIC OBSTRUCTIVE PULMONARY DISEASE W (ACUTE) EXACERBATION (2) HLD (hyperlipidemia) Assessment/Plan: on atorvastatin. Code(s): E78.5 - HYPERLIPIDEMIA, UNSPECIFIED (3) HTN (hypertension) Assessment/Plan: On metoprolol, losartan as outpatient. Code(s): I10 - ESSENTIAL (PRIMARY) HYPERTENSION Qualifiers: Hypertension type: renovascular hypertension Qualified Code(s): I15.0 - Renovascular hypertension (4) Hypercapnic respiratory failure Assessment/Plan: Pt may be extubated today. Code(s): J96.92 - RESPIRATORY FAILURE, UNSPECIFIED WITH HYPERCAPNIA Qualifiers: Chronicity: unspecified Qualified Code(s): J96.92 - Respiratory failure, unspecified with hypercapnia (5) Obesity, morbid, BMI 50 or higher Code(s): E66.01 - MORBID (SEVERE) OBESITY DUE TO EXCESS CALORIES (6) Diastolic CHF Code(s): I50.30 - UNSPECIFIED DIASTOLIC (CONGESTIVE) HEART FAILURE (7) Diabetes Code(s): E11.9 - TYPE 2 DIABETES MELLITUS WITHOUT COMPLICATIONS Assessment/Plan CCU time spent: 35 minutes.
[2019-01-28] MEDS ORDERED: DEXTROSE 5%-WATER 100 ML IVPB ONE (09:35)
[2019-01-28] MEDS: CEFTRIAXONE 2 GM in DEXTROSE 5%-WATER 100 ML IVPB SCH (09:45)
[2019-01-28] MEDS: PANTOPRAZOLE SODIUM 40 MG VIAL IVPUSH SCH (09:46)
[2019-01-28] MEDS: HEPARIN NA (PORCINE) 5,000 UNITS/ML 1ML VIAL SQ SCH ×2 (10:00→21:19)
[2019-01-28] MEDS: MUPIROCIN 2% TOPICAL OINTMENT FOR DECOLONIZATION NS SCH ×2 (10:12→21:20)
--- NOTE | 2019-01-28 10:21 | PN ---
Teaching Attending Note Name of Resident: Manpreet Mayberry ATTENDING PHYSICIAN STATEMENT I saw and evaluated the patient. I reviewed the resident's note and discussed the case with the resident. I agree with the resident's findings and plan as documented. SUBJECTIVE: Patient seen and examined in the ICU. Remains extubated on NIPPV support. Awake and responsive. Reports no BM and wants to eat. No pressors. Intake & Output 01/25/19 01/26/19 01/27/19 01/28/19 23:59 23:59 23:59 23:59 Intake Total 10 720 762 120 Output Total 2300 2450 150 Balance 10 -1580 -1688 -30 Weight 303 lb 303 lb Last Vital Signs Temp Pulse Resp BP Pulse Ox 97.4 F L 74 21 H 132/70 99 01/28/19 06:00 01/28/19 08:00 01/28/19 08:00 01/28/19 08:00 01/28/19 07:56 Active Medications Albuterol/Ipratropium (Duoneb -) 1 amp NEB RQID [facility] Last Admin: 01/28/19 07:57 Dose: 1 amp Chlorhexidine Gluconate (Hibiclens For Decolonization -) 1 applic TP HS [facility] Last Admin: 01/27/19 23:00 Dose: 1 applic Furosemide (Lasix Injection -) 40 mg IVPUSH BID@0600,1400 [facility] Last Admin: 01/28/19 06:06 Dose: 40 mg Heparin Sodium (Porcine) (Heparin -) 5,000 unit SQ BID [facility] Last Admin: 01/28/19 10:00 Dose: 5,000 unit Azithromycin (Zithromax 500mg Ivpb (Pre-Docked)) 500 mg in 250 mls @ 250 mls/ hr IVPB DAILY [facility] Last Admin: 01/27/19 11:01 Dose: 250 mls/hr Ceftriaxone Sodium 2 gm/ (Dextrose) 100 mls @ 200 mls/hr IVPB DAILY [facility]; Protocol Last Admin: 01/28/19 09:45 Dose: 200 mls/hr Insulin Aspart (Novolog Vial Sliding Scale -) 1 vial SQ Q6HPO [facility]; Protocol Last Admin: 01/28/19 06:34 Dose: Not Given Metoprolol Tartrate (Lopressor Injection -) 5 mg IVPUSH Q4H PRN PRN Reason: HYPERTENSION Mupirocin (Bactroban Ointment (For Decolonization) -) 1 applic NS BID DONTA Stop: 01/30/19 21:59 Last Admin: 01/28/19 10:12 Dose: 1 applic Pantoprazole Sodium (Protonix Iv) 40 mg IVPUSH DAILY [facility] Last Admin: 01/28/19 09:46 Dose: 40 mg Gen: Awake and alert on NIPPV Support, NAD Heart: RRR Lung: distant breath sounds Abd: soft, nontender Ext: + edema Laboratory Results - last 24 hr 01/27/19 01/27/19 01/27/19 12:31 17:13 20:20 Anticoagulation Therapy No Result Required. Puncture Site Right radial ABG pH 7.32 L ABG pCO2 at Pt Temp 74.0 H* ABG pO2 at Pt Temp 77.5 L ABG HCO3 37.3 H ABG O2 Sat (Measured) 94.0 L ABG O2 Content 19.1 ABG Base Excess 8.4 H Dwayne Test Positive O2 Delivery Device Hiflow Oxygen Flow Rate 40 Vent Mode No Result Required. Vent Rate No Result Required. Mechanical Rate No Result Required. Pressure Support Vent No Result Required. POC Glucometer 216 184 01/27/19 01/27/19 01/28/19 21:40 23:16 05:20 Anticoagulation Therapy No Result Required. Puncture Site Right radial Right radial ABG pH 7.33 L 7.35 ABG pCO2 at Pt Temp 73.5 H* 73.2 H* ABG pO2 at Pt Temp 90.8 84.9 ABG HCO3 38.0 H 38.9 H ABG O2 Sat (Measured) 95.8 95.2 ABG O2 Content 14.6 No Result Required. ABG Base Excess 9.2 H 9.7 H Dwayne Test Positive Positive O2 Delivery Device Bipap Bipap Oxygen Flow Rate 50 40% Vent Mode No Result Required. Vent Rate 16 16 Mechanical Rate No Result Required. Pressure Support Vent 14/6 14/6 POC Glucometer 170 01/28/19 06:31 Anticoagulation Therapy Puncture Site ABG pH ABG pCO2 at Pt Temp ABG pO2 at Pt Temp ABG HCO3 ABG O2 Sat (Measured) ABG O2 Content ABG Base Excess Dwayne Test O2 Delivery Device Oxygen Flow Rate Vent Mode Vent Rate Mechanical Rate Pressure Support Vent POC Glucometer 110 ASSESSMENT AND PLAN: Acute on Chronic Hypoxic and Hypercapneic Respiratory Failure Acute on Chronic Diastolic Heart Failure Acute Kidney Injury Resolving Acute COPD Exacerbation Suspected CAP HTN DM Hyperlipidemia Obstructive Sleep Apnea - continue lasix - monitor urine output, creatinine - daily weights - continue empiric antibiotics - f/u final cultures - Monitor off systemic steroids - inhaled bronchodilators - DVT prophylaxis - NIPPV support alternating with HFOT as needed Dr Paige
[2019-01-28] MEDS: AZITHROMYCIN IVPB 500 MG/250 ML BAG IVPB SCH (10:28)
[2019-01-28 10:49] LABS: BASO % 0.3 % (0-2.0); EOS % 0.3 % (0-4.5); HEMOGLOBIN 14.7 GM/dL (10.7-15.3); LYMPH % 9.6 % (8-40); MCH 27.3 pg (25.7-33.7); MEAN CELL VOLUME 85.1 fl (80-96); MEAN PLT VOLUME 9.6 fl (7.5-11.1); MONO % 9.8 % (3.8-10.2); PLATELET COUNT 178 K/MM3 (134-434); RDW 15.9 % (11.6-15.6); WHITE BLOOD COUNT 9.4 K/mm3 (4.0-10.0)
[2019-01-28 11:26] LABS: ALBUMIN 2.7 g/dl (3.4-5.0); BILIRUBIN,TOTAL 0.5 mg/dL (0.2-1); BLOOD UREA NITROGEN 42.1 mg/dL (7-18); CALCIUM 9.5 mg/dL (8.5-10.1); CREATININE 0.8 mg/dL (0.55-1.3); PHOSPHOROUS 3.4 mg/dL (2.5-4.9); POTASSIUM 4.1 mmol/L (3.5-5.1); TOT PROT 7.4 g/dl (6.4-8.2)
--- NOTE | 2019-01-28 11:39 | PN ---
Progress Note, Physician History of Present Illness: AWAKE,ALERT OFFERS NO COMPLAINTS BREATHING NON LABORED AFEBRILE WBC IMPROVED WNL - Current Medication List Current Medications: Active Medications Albuterol/Ipratropium (Duoneb -) 1 amp NEB RQID [facility] Last Admin: 01/28/19 07:57 Dose: 1 amp Chlorhexidine Gluconate (Hibiclens For Decolonization -) 1 applic TP HS [facility] Last Admin: 01/27/19 23:00 Dose: 1 applic Furosemide (Lasix Injection -) 40 mg IVPUSH BID@0600,1400 [facility] Last Admin: 01/28/19 06:06 Dose: 40 mg Heparin Sodium (Porcine) (Heparin -) 5,000 unit SQ BID [facility] Last Admin: 01/28/19 10:00 Dose: 5,000 unit Azithromycin (Zithromax 500mg Ivpb (Pre-Docked)) 500 mg in 250 mls @ 250 mls/ hr IVPB DAILY [facility] Last Admin: 01/28/19 10:28 Dose: 250 mls/hr Ceftriaxone Sodium 2 gm/ (Dextrose) 100 mls @ 200 mls/hr IVPB DAILY [facility]; Protocol Last Admin: 01/28/19 09:45 Dose: 200 mls/hr Insulin Aspart (Novolog Vial Sliding Scale -) 1 vial SQ Q6HPO [facility]; Protocol Last Admin: 01/28/19 06:34 Dose: Not Given Metoprolol Tartrate (Lopressor Injection -) 5 mg IVPUSH Q4H PRN PRN Reason: HYPERTENSION Mupirocin (Bactroban Ointment (For Decolonization) -) 1 applic NS BID [facility] Stop: 01/30/19 21:59 Last Admin: 01/28/19 10:12 Dose: 1 applic Pantoprazole Sodium (Protonix Iv) 40 mg IVPUSH DAILY [facility] Last Admin: 01/28/19 09:46 Dose: 40 mg - Objective Vital Signs: Vital Signs Temperature 97.4 F L 01/28/19 06:00 Pulse Rate 74 01/28/19 08:00 Respiratory Rate 21 H 01/28/19 08:00 Blood Pressure 132/70 01/28/19 08:00 O2 Sat by Pulse Oximetry (%) 99 01/28/19 07:56 Constitutional: Yes: No Distress, Obese Eyes: Yes: Conjunctiva Clear Cardiovascular: Yes: Regular Rate and Rhythm, S1, S2 Respiratory: Yes: Diminished Gastrointestinal: Yes: Normal Bowel Sounds, Soft. No: Tenderness Labs: CBC, BMP 01/28/19 10:30 01/28/19 10:30 Assessment/Plan S/P RESPIRATORY FAILURE R/O CAP MORBID OBESITY DIABETES MELLITUS CONTINUE EMPIRIC ZITHROMAX/ CEFTRIAXONE
--- NOTE | 2019-01-28 12:08 | PN ---
Progress Note, Physician Chief Complaint: Respiratory Failure CHF COPD Morbid Obesity History of Present Illness: Previous notes and events reviewed awake and alert patient extubated yesterday had episode of lethargy last night and placed on HFOT and mentation improved currently on O2 via NC, denies SOB complain of productive cough with white phlegm - Current Medication List Current Medications: Active Medications Albuterol/Ipratropium (Duoneb -) 1 amp NEB RQID [facility] Last Admin: 01/28/19 07:57 Dose: 1 amp Chlorhexidine Gluconate (Hibiclens For Decolonization -) 1 applic TP HS [facility] Last Admin: 01/27/19 23:00 Dose: 1 applic Furosemide (Lasix Injection -) 40 mg IVPUSH BID@0600,1400 [facility] Last Admin: 01/28/19 06:06 Dose: 40 mg Heparin Sodium (Porcine) (Heparin -) 5,000 unit SQ BID [facility] Last Admin: 01/28/19 10:00 Dose: 5,000 unit Azithromycin (Zithromax 500mg Ivpb (Pre-Docked)) 500 mg in 250 mls @ 250 mls/ hr IVPB DAILY [facility] Last Admin: 01/28/19 10:28 Dose: 250 mls/hr Ceftriaxone Sodium 2 gm/ (Dextrose) 100 mls @ 200 mls/hr IVPB DAILY [facility]; Protocol Last Admin: 01/28/19 09:45 Dose: 200 mls/hr Insulin Aspart (Novolog Vial Sliding Scale -) 1 vial SQ Q6HPO [facility]; Protocol Last Admin: 01/28/19 06:34 Dose: Not Given Metoprolol Tartrate (Lopressor Injection -) 5 mg IVPUSH Q4H PRN PRN Reason: HYPERTENSION Mupirocin (Bactroban Ointment (For Decolonization) -) 1 applic NS BID [facility] Stop: 01/30/19 21:59 Last Admin: 01/28/19 10:12 Dose: 1 applic Pantoprazole Sodium (Protonix Iv) 40 mg IVPUSH DAILY [facility] Last Admin: 01/28/19 09:46 Dose: 40 mg - Objective Vital Signs: Vital Signs Temperature 97.4 F L 01/28/19 06:00 Pulse Rate 74 01/28/19 08:00 Respiratory Rate 21 H 01/28/19 08:00 Blood Pressure 132/70 01/28/19 08:00 O2 Sat by Pulse Oximetry (%) 99 01/28/19 07:56 Constitutional: Yes: No Distress, Calm, Obese Eyes: Yes: Conjunctiva Clear HENT: Yes: Atraumatic Cardiovascular: Yes: Regular Rate and Rhythm Respiratory: Yes: Regular, Cough, Diminished, On Nasal O2 Gastrointestinal: Yes: Normal Bowel Sounds, Soft, Abdomen, Obese Genitourinary: Yes: Villalba Present Musculoskeletal: Yes: Muscle Weakness Extremities: Yes: WNL Edema: No Neurological: Yes: Alert, Oriented Psychiatric: Yes: Alert, Oriented Labs: CBC, BMP 01/28/19 10:30 01/28/19 10:30 Microbiology 01/25/19 16:55 Blood - Peripheral Venous Blood Culture - Preliminary NO GROWTH OBTAINED AFTER 48 HOURS, INCUBATION TO CONTINUE FOR 3 DAYS. 01/25/19 16:55 Blood - Peripheral Venous Blood Culture - Preliminary NO GROWTH OBTAINED AFTER 48 HOURS, INCUBATION TO CONTINUE FOR 3 DAYS. 01/25/19 16:35 Urine - Urine Villalba Urine Culture - Final NO GROWTH OBTAINED 01/26/19 10:00 Sputum - Endotrachea Suction/Ventilator Gram Stain - Final 01/26/19 10:00 Urine For Antigen Detection Legionella Antigen - Final 01/26/19 10:00 Urine For Antigen Detection Streptococcus pneumoniae Antigen (M - Final Problem List - Problems (1) COPD exacerbation Assessment/Plan: -Pulm on board -O2 via NC -HFOT as needed -Bipap HS -bronchodilators -keep SpO2 >90% Code(s): J44.1 - CHRONIC OBSTRUCTIVE PULMONARY DISEASE W (ACUTE) EXACERBATION (2) Acute on chronic respiratory failure with hypoxia and hypercapnia Assessment/Plan: -Pulm on board -bronchodilators -O2 via NC, HFOT as needed -Bipap HS -keep SpO2 >90% -ABGs -Legionella neg, Influenza neg, RSV neg Code(s): J96.21 - ACUTE AND CHRONIC RESPIRATORY FAILURE WITH HYPOXIA; J96.22 - ACUTE AND CHRONIC RESPIRATORY FAILURE WITH HYPERCAPNIA (3) CHF exacerbation Assessment/Plan: -Cardiology on board -tele monitoring -BNP 6753~4268 -daily weights -strict I&Os -Furosemide Code(s): I50.9 - HEART FAILURE, UNSPECIFIED Qualifiers: Heart failure type: unspecified Qualified Code(s): I50.9 - Heart failure, unspecified (4) Diabetes Assessment/Plan: -BGM ACHS -ISS -HgA1c Code(s): E11.9 - TYPE 2 DIABETES MELLITUS WITHOUT COMPLICATIONS (5) HTN (hypertension) Assessment/Plan: -Lopressor 5mg IVP q4h prn for systolic BP >160 and/or diastolic BP >80 -monitor BP Code(s): I10 - ESSENTIAL (PRIMARY) HYPERTENSION (6) HLD (hyperlipidemia) Assessment/Plan: -Atorvastatin Code(s): E78.5 - HYPERLIPIDEMIA, UNSPECIFIED (7) Leukocytosis Assessment/Plan: -WBC 9.4 -afebrile -ID on board -Azithromycin, Ceftriaxone -LA ordered -BC neg -UC positive -CXR shows no pneumothorax, pleural effusion, no vascular congestive changes, no pulmonary infiltrates Code(s): D72.829 - ELEVATED WHITE BLOOD CELL COUNT, UNSPECIFIED (8) Elevated troponin Assessment/Plan: -troponin 0.42,~0.22 -Tele monitoring -Cardiology on board Code(s): R79.89 - OTHER SPECIFIED ABNORMAL FINDINGS OF BLOOD CHEMISTRY Assessment/Plan see problem list dvt ppx
--- NOTE | 2019-01-28 12:36 | PN ---
Progress Note, Physician History of Present Illness: Pt seen and examined at bedside. She is awake and appears comfortable. She denies shortness of breath. She says that she was not always taking her lasix. - Current Medication List Current Medications: Active Medications Albuterol/Ipratropium (Duoneb -) 1 amp NEB RQID [facility] Last Admin: 01/28/19 12:05 Dose: 1 amp Chlorhexidine Gluconate (Hibiclens For Decolonization -) 1 applic TP HS [facility] Last Admin: 01/27/19 23:00 Dose: 1 applic Furosemide (Lasix Injection -) 40 mg IVPUSH BID@0600,1400 [facility] Last Admin: 01/28/19 06:06 Dose: 40 mg Heparin Sodium (Porcine) (Heparin -) 5,000 unit SQ BID [facility] Last Admin: 01/28/19 10:00 Dose: 5,000 unit Azithromycin (Zithromax 500mg Ivpb (Pre-Docked)) 500 mg in 250 mls @ 250 mls/ hr IVPB DAILY [facility] Last Admin: 01/28/19 10:28 Dose: 250 mls/hr Ceftriaxone Sodium 2 gm/ (Dextrose) 100 mls @ 200 mls/hr IVPB DAILY [facility]; Protocol Last Admin: 01/28/19 09:45 Dose: 200 mls/hr Insulin Aspart (Novolog Vial Sliding Scale -) 1 vial SQ Q6HPO [facility]; Protocol Last Admin: 01/28/19 06:34 Dose: Not Given Metoprolol Tartrate (Lopressor Injection -) 5 mg IVPUSH Q4H PRN PRN Reason: HYPERTENSION Mupirocin (Bactroban Ointment (For Decolonization) -) 1 applic NS BID [facility] Stop: 01/30/19 21:59 Last Admin: 01/28/19 10:12 Dose: 1 applic Pantoprazole Sodium (Protonix Iv) 40 mg IVPUSH DAILY [facility] Last Admin: 01/28/19 09:46 Dose: 40 mg - Objective Vital Signs: Vital Signs Temperature 97.4 F L 01/28/19 06:00 Pulse Rate 74 01/28/19 08:00 Respiratory Rate 21 H 01/28/19 08:00 Blood Pressure 132/70 01/28/19 08:00 O2 Sat by Pulse Oximetry (%) 91 L 01/28/19 12:04 Constitutional: Yes: Calm Eyes: Yes: Conjunctiva Clear HENT: Yes: Atraumatic Neck: Yes: Supple Cardiovascular: Yes: S1, S2 Respiratory: Yes: On Nasal O2 Gastrointestinal: Yes: Soft, Abdomen, Obese Genitourinary: Yes: WNL Musculoskeletal: Yes: WNL Edema: Yes Edema: LLE: Trace, RLE: Trace Neurological: Yes: Oriented Psychiatric: Yes: Oriented Labs: CBC, BMP 01/28/19 10:30 01/28/19 10:30 - ....Imaging Chest X-ray: Report Reviewed Assessment/Plan Current Medications Generic Name Dose Route Start Last Admin Trade Name Freq PRN Reason Stop Dose Admin Albuterol/Ipratropium 1 amp 01/26/19 12:00 01/28/19 12:05 Duoneb - NEB 1 amp RQID [facility] Administration Chlorhexidine Gluconate 1 applic 01/25/19 22:00 01/27/19 23:00 Hibiclens For Decolonization - TP 1 applic HS [facility] Administration Furosemide 40 mg 01/26/19 14:00 01/28/19 06:06 Lasix Injection - IVPUSH 40 mg BID@0600,1400 [facility] Administration Heparin Sodium (Porcine) 5,000 unit 01/25/19 22:00 01/28/19 10:00 Heparin - SQ 5,000 unit BID [facility] Administration Azithromycin 500 mg in 250 mls @ 250 mls/hr 01/26/19 10:30 01/28/19 10:28 Zithromax 500mg Ivpb (Pre-Docked) IVPB 250 mls/hr DAILY [facility] Administration Ceftriaxone Sodium 2 gm/ 100 mls @ 200 mls/hr 01/26/19 10:30 01/28/19 09:45 Dextrose IVPB 200 mls/hr DAILY [facility] Administration Protocol Insulin Aspart 1 vial 01/26/19 18:00 01/28/19 06:34 Novolog Vial Sliding Scale - SQ Not Given Q6HPO [facility] Protocol Metoprolol Tartrate 5 mg 01/25/19 17:08 Lopressor Injection - IVPUSH Q4H PRN HYPERTENSION Mupirocin 1 applic 01/25/19 22:00 01/28/19 10:12 Bactroban Ointment (For Decolonization) - NS 01/30/19 21:59 1 applic BID [facility] Administration Pantoprazole Sodium 40 mg 01/26/19 11:45 01/28/19 09:46 Protonix Iv IVPUSH 40 mg DAILY [facility] Administration Impression 1. JUANCARLOS 2. CHF diastolic 3. COPD on home o2 4. obesity 5. resp acidosis with met alkalosis 6. hyperkalemia Plan - renal function is improved - potassium is improved - monitor renal function - cont lasix - volume status is improving - will follow PRN
--- NOTE | 2019-01-28 13:08 | ECHO ---
Name: BUSTER CARNEY Exam:Adult Echocardiogram Study Date: 01/28/2019 11:16 AM Age: 68 yrs Reason For Study: diastolic CHF, respiratory failure Height: 64 in Weight: 303 lb BSA: 2.3 m2 Left Ventricle Left ventricular systolic function is normal. Ejection Fraction = 55-60%. Right Ventricle Borderline right ventricular enlargement. The right ventricular systolic function is grossly normal. Atria Normal left and right atrial size and function. Mitral Valve There is mild to moderate mitral annular calcification. There is no mitral valve stenosis. There is m ild mitral regurgitation. Tricuspid Valve The tricuspid valve is normal in structure and function. There is trace tricuspid regurgitation. Ther e was insufficient TR detected to calculate RV systolic pressure. Aortic Valve The aortic valve opens well. No hemodynamically significant valvular aortic stenosis. No aortic regur gitation is present. Pulmonic Valve The pulmonic valve is not well seen, but is grossly normal. There is no pulmonic valvular stenosis. Great Vessels The aortic root is normal size. Pericardium/Pleura There is no pericardial effusion. Interpretation Summary Left ventricular systolic function is normal. Ejection Fraction = 55-60%. Borderline right ventricular enlargement. The right ventricular systolic function is grossly normal. There is mild to moderate mitral annular calcification. There is mild mitral regurgitation. There is trace tricuspid regurgitation. There was insufficient TR detected to calculate RV systolic pressure. There is no pericardial effusion. MD Hammond *Tarah 01/28/2019 01:07 PM
[2019-01-28] MEDS ORDERED: INSULIN (NOVOLOG) ASPART 100 UNITS/ML 10ML VIAL ONE (15:03)
--- NOTE | 2019-01-28 20:27 | PN ---
Progress Note, Physician Chief Complaint: Pt was extubated yesterday. She is A&Ox3; no chest pain; + dsypnea on mild exertion. History of Present Illness: 68-year-old female with history of morbid obesity, COPD on home oxygen at 2 L, diastolic CHF (echo 04/10 with normal EF), HTN, DM, hyperlipidemia, diastolic CHF , now sent in by PCP Dr. Valenzuela for volume overload and increased work of breathing. Patient reports increasing dyspnea over the last 3 days, also reports having difficulty urinating and self discontinuing her Lasix. Denies any fevers or chills or chest pain or pressure, denies palpitations. Worsening orthopnea over the last 72 hours, has required diuresis in the past. - Current Medication List Current Medications: Active Medications Albuterol/Ipratropium (Duoneb -) 1 amp NEB RQID [facility] Last Admin: 01/28/19 16:04 Dose: 1 amp Chlorhexidine Gluconate (Hibiclens For Decolonization -) 1 applic TP HS [facility] Last Admin: 01/27/19 23:00 Dose: 1 applic Furosemide (Lasix Injection -) 40 mg IVPUSH BID@0600,1400 [facility] Last Admin: 01/28/19 15:11 Dose: 40 mg Heparin Sodium (Porcine) (Heparin -) 5,000 unit SQ BID [facility] Last Admin: 01/28/19 10:00 Dose: 5,000 unit Azithromycin (Zithromax 500mg Ivpb (Pre-Docked)) 500 mg in 250 mls @ 250 mls/ hr IVPB DAILY [facility] Last Admin: 01/28/19 10:28 Dose: 250 mls/hr Ceftriaxone Sodium 2 gm/ (Dextrose) 100 mls @ 200 mls/hr IVPB DAILY [facility]; Protocol Last Admin: 01/28/19 09:45 Dose: 200 mls/hr Insulin Aspart (Novolog Vial Sliding Scale -) 1 vial SQ Q6HPO [facility]; Protocol Last Admin: 01/28/19 18:33 Dose: 2 units Metoprolol Tartrate (Lopressor Injection -) 5 mg IVPUSH Q4H PRN PRN Reason: HYPERTENSION Mupirocin (Bactroban Ointment (For Decolonization) -) 1 applic NS BID [facility] Stop: 01/30/19 21:59 Last Admin: 01/28/19 10:12 Dose: 1 applic Pantoprazole Sodium (Protonix Iv) 40 mg IVPUSH DAILY [facility] Last Admin: 01/28/19 09:46 Dose: 40 mg - Objective Vital Signs: Vital Signs Temperature 98 F 01/28/19 18:00 Pulse Rate 81 01/28/19 20:00 Respiratory Rate 22 H 01/28/19 20:07 Blood Pressure 137/62 01/28/19 20:00 O2 Sat by Pulse Oximetry (%) 94 L 01/28/19 20:07 Constitutional: Yes: Anxious, Obese Eyes: Yes: WNL, Conjunctiva Clear HENT: Yes: WNL Neck: Yes: WNL Cardiovascular: Yes: S1, S2, S4 Respiratory: Yes: Diminished Gastrointestinal: Yes: Soft, Abdomen, Obese ...Rectal Exam: Yes: Deferred Genitourinary: No: Anuria Breast(s): Yes: WNL Musculoskeletal: Yes: Joint Stiffness, Muscle Weakness Extremities: Yes: WNL Edema: No Peripheral Pulses WNL: Yes Integumentary: Yes: WNL Neurological: Yes: WNL Psychiatric: Yes: WNL Labs: CBC, BMP 01/28/19 10:30 01/28/19 10:30 Abnormal Lab Results 01/27/19 01/28/19 01/28/19 21:40 05:20 10:30 RBC 5.40 H Hct 46.0 H RDW 15.9 H ABG pH 7.33 L ABG pCO2 at Pt Temp 73.5 H* 73.2 H* ABG HCO3 38.0 H 38.9 H ABG Base Excess 9.2 H 9.7 H Carbon Dioxide Anion Gap BUN Random Glucose Albumin Cholesterol Total LDL Cholesterol 01/28/19 10:30 RBC Hct RDW ABG pH ABG pCO2 at Pt Temp ABG HCO3 ABG Base Excess Carbon Dioxide 40 H Anion Gap 4 L BUN 42.1 H Random Glucose 145 H Albumin 2.7 L Cholesterol 211 H Total LDL Cholesterol 140 H - ....Imaging Chest X-ray: Image Reviewed EKG: Image Reviewed Other: Image Reviewed (telemetry: NSR: no arrhythmias) Problem List - Problems (1) COPD exacerbation Assessment/Plan: Intubated; plans for extubation today. O2, bronchodilators, steroids per pumonologist. Code(s): J44.1 - CHRONIC OBSTRUCTIVE PULMONARY DISEASE W (ACUTE) EXACERBATION (2) HLD (hyperlipidemia) Assessment/Plan: on atorvastatin at home; elevated LDL. Code(s): E78.5 - HYPERLIPIDEMIA, UNSPECIFIED (3) HTN (hypertension) Assessment/Plan: On metoprolol, losartan as outpatient. Code(s): I10 - ESSENTIAL (PRIMARY) HYPERTENSION Qualifiers: Hypertension type: renovascular hypertension Qualified Code(s): I15.0 - Renovascular hypertension (4) Hypercapnic respiratory failure Assessment/Plan: extubated. F/u bronchodilators, antibiotics, O2, and steroids with electrifier operator. Code(s): J96.92 - RESPIRATORY FAILURE, UNSPECIFIED WITH HYPERCAPNIA Qualifiers: Chronicity: unspecified Qualified Code(s): J96.92 - Respiratory failure, unspecified with hypercapnia (5) Obesity, morbid, BMI 50 or higher Assessment/Plan: The imperative need to modify diet and decrease weight was discussed with pt. Dietary/diabetic consult would be of benefit. Code(s): E66.01 - MORBID (SEVERE) OBESITY DUE TO EXCESS CALORIES (6) Diastolic CHF Code(s): I50.30 - UNSPECIFIED DIASTOLIC (CONGESTIVE) HEART FAILURE (7) Diabetes Code(s): E11.9 - TYPE 2 DIABETES MELLITUS WITHOUT COMPLICATIONS (8) [place] cardiac risk >20% in next 10 years Assessment/Plan: Pt had stress MIBI 03/2018 that showed no ischemia; however, transient ischemic dilatation score was borderline elevated, which may be indicitive of underlying CAD. ECHO: normal LVEF; abnormal diastolic compliance; borderline RVE; mild MR; trace TR. Once stable, will have further coronary artery evaluation (CTA or coronary angiogram) as an outpatient. Aggressive lipid-lowering; diet modification; weight loss; BP and glucose control. Code(s): Z91.89 - OTH PERSONAL RISK FACTORS, NOT ELSEWHERE CLASSIFIED (9) Acute on chronic diastolic (congestive) heart failure Assessment/Plan: Now extubated. On metoprolol (and has been on losartan as outpatient). F/u BUN/Cr, electrolytes, daily weight, and Is and Os. See "[place] Risk" regarding further coronary artery evaluation. Code(s): I50.33 - ACUTE ON CHRONIC DIASTOLIC (CONGESTIVE) HEART FAILURE Assessment/Plan CCU time spetn: 40 minutes.
[2019-01-28] MEDS: CHLORHEXIDINE GLUCONATE 4% CLEANSER FOR DECOLONIZATION TP SCH (21:19)
[2019-01-28] MEDS ORDERED: ATORVASTATIN CA 40 MG TABLET (FP) PO SCH (22:00)
[2019-01-29] MEDS: INSULIN SLIDING SCALE (NOVOLOG) 1 VIAL SQ SCH ×5 (01:45→21:43)
[2019-01-29 06:30] LABS: HEMATOCRIT 43.5 % (32.4-45.2); HEMOGLOBIN 14.2 GM/dL (10.7-15.3); MCH 27.5 pg (25.7-33.7); MCHC 32.6 g/dl (32.0-36.0); MEAN CELL VOLUME 84.2 fl (80-96); PLATELET COUNT 207 K/MM3 (134-434); RBC 5.16 M/mm3 (3.60-5.2); RDW 15.7 % (11.6-15.6); WHITE BLOOD COUNT 9.9 K/mm3 (4.0-10.0)
[2019-01-29] MEDS: FUROSEMIDE 40 MG/4 ML INJECTABLE VIAL IVPUSH SCH ×2 (06:50→14:09)
[2019-01-29 07:20] LABS: ALBUMIN 2.7 g/dl (3.4-5.0); BILIRUBIN,TOTAL 0.8 mg/dL (0.2-1); BLOOD UREA NITROGEN 27.7 mg/dL (7-18); CALCIUM 9.2 mg/dL (8.5-10.1); CREATININE 0.6 mg/dL (0.55-1.3); POTASSIUM 3.6 mmol/L (3.5-5.1); TOT PROT 6.9 g/dl (6.4-8.2)
[2019-01-29] MEDS: ALBUTEROL SO4 2.5/IPRATROPIUM 0.5 INH SOL 3 ML VIAL.NEB. NEB SCH ×4 (08:02→20:33)
[2019-01-29 08:13] LABS: MAGNESIUM 1.6 mg/dL (1.8-2.4); PHOSPHOROUS 3.1 mg/dL (2.5-4.9)
--- NOTE | 2019-01-29 08:18 | PN ---
Physical Exam: SUBJECTIVE: Patient seen and examined at bedside. Complains of being hungry as she was not able to eat yesterday. Was on BIPAP overnight, on nasal cannula this morning. States that her breathing feels comfortable. Denies chest pain. OBJECTIVE: Vital Signs Period Temp Pulse Resp BP Sys/Garner Pulse Ox Last 24 Hr 97 F-98.4 F 68-90 20-26 97-157/45-98 91-95 GENERAL: The patient is awake, alert, and fully oriented, in no acute distress. HEAD: Normal with no signs of trauma. EYES: PERRL, EOMI, no scleral icterus ENT: dry mucous membranes NECK: Trachea midline, supple. LUNGS: minimal end expiratory wheezing in left base, no rales, crackles. No accessory muscle use HEART: Systolic murmur noted. Regular rate and rhythm, S1, S2 ABDOMEN: Soft, nontender, nondistended, normoactive bowel sounds, no guarding, no rebound EXTREMITIES: 2+ pulses, warm, well-perfused, 1+ non pitting edema of bilateral lower extremities NEUROLOGICAL: normal speech, gait not observed. 5/5 strength upper extremities. PSYCH: Normal mood, normal affect. SKIN: Warm, dry, normal turgor Laboratory Results - last 24 hr 01/28/19 01/28/19 01/28/19 10:30 10:30 14:59 WBC 9.4 RBC 5.40 H Hgb 14.7 Hct 46.0 H MCV 85.1 MCH 27.3 MCHC 32.0 RDW 15.9 H Plt Count 178 MPV 9.6 Absolute Neuts (auto) 7.5 Neutrophils % 80.0 Lymphocytes % 9.6 D Monocytes % 9.8 D Eosinophils % 0.3 D Basophils % 0.3 Nucleated RBC % 0 Sodium 144 Potassium 4.1 Chloride 100 Carbon Dioxide 40 H Anion Gap 4 L BUN 42.1 H Creatinine 0.8 Est GFR (CKD-EPI)AfAm 89.04 Est GFR (CKD-EPI)NonAf 76.83 POC Glucometer 158 Random Glucose 145 H Calcium 9.5 Phosphorus 3.4 Magnesium 2.0 Total Bilirubin 0.5 AST 20 ALT 45 Alkaline Phosphatase 103 Total Protein 7.4 Albumin 2.7 L Triglycerides 149 Cholesterol 211 H Total LDL Cholesterol 140 H HDL Cholesterol 44 TSH 2.95 01/28/19 01/28/19 01/29/19 18:27 23:21 05:54 WBC 9.9 RBC 5.16 Hgb 14.2 Hct 43.5 MCV 84.2 MCH 27.5 MCHC 32.6 RDW 15.7 H Plt Count 207 MPV 10.0 Absolute Neuts (auto) Neutrophils % Lymphocytes % Monocytes % Eosinophils % Basophils % Nucleated RBC % Sodium Potassium Chloride Carbon Dioxide Anion Gap BUN Creatinine Est GFR (CKD-EPI)AfAm Est GFR (CKD-EPI)NonAf POC Glucometer 157 144 Random Glucose Calcium Phosphorus Magnesium Total Bilirubin AST ALT Alkaline Phosphatase Total Protein Albumin Triglycerides Cholesterol Total LDL Cholesterol HDL Cholesterol TSH 01/29/19 01/29/19 01/29/19 05:54 05:56 06:54 WBC RBC Hgb Hct MCV MCH MCHC RDW Plt Count MPV Absolute Neuts (auto) Neutrophils % Lymphocytes % Monocytes % Eosinophils % Basophils % Nucleated RBC % Sodium 142 Potassium 3.6 Chloride 97 L Carbon Dioxide 43 H Anion Gap 2 L BUN 27.7 H Creatinine 0.6 Est GFR (CKD-EPI)AfAm 110.08 Est GFR (CKD-EPI)NonAf 94.98 POC Glucometer 125 Random Glucose 137 H Calcium 9.2 Phosphorus 3.1 Magnesium 1.6 L Total Bilirubin 0.8 AST 14 L ALT 38 Alkaline Phosphatase 90 Total Protein 6.9 Albumin 2.7 L Triglycerides Cholesterol Total LDL Cholesterol HDL Cholesterol TSH Active Medications Generic Name Dose Route Start Last Admin Trade Name Freq PRN Reason Stop Dose Admin Albuterol/Ipratropium 1 amp 01/26/19 12:00 01/29/19 08:02 Duoneb - NEB 1 amp RQID DON[facility] Administration Atorvastatin Calcium 40 mg 01/28/19 22:00 01/28/19 21:19 Lipitor - PO 40 mg HS [facility] Administration Chlorhexidine Gluconate 1 applic 01/25/19 22:00 01/28/19 21:19 Hibiclens For Decolonization - TP 1 applic HS [facility] Administration Furosemide 40 mg 01/26/19 14:00 01/29/19 06:50 Lasix Injection - IVPUSH 40 mg BID@0600,1400 [facility] Administration Heparin Sodium (Porcine) 5,000 unit 01/25/19 22:00 01/28/19 21:19 Heparin - SQ 5,000 unit BID [facility] Administration Azithromycin 500 mg in 250 mls @ 250 mls/hr 01/26/19 10:30 01/28/19 10:28 Zithromax 500mg Ivpb (Pre-Docked) IVPB 250 mls/hr DAILY [facility] Administration Ceftriaxone Sodium 2 gm/ 100 mls @ 200 mls/hr 01/26/19 10:30 01/28/19 09:45 Dextrose IVPB 200 mls/hr DAILY [facility] Administration Protocol Insulin Aspart 1 vial 01/26/19 18:00 01/29/19 06:50 Novolog Vial Sliding Scale - SQ Not Given Q6HPO [facility] Protocol Metoprolol Tartrate 5 mg 01/25/19 17:08 Lopressor Injection - IVPUSH Q4H PRN HYPERTENSION Mupirocin 1 applic 01/25/19 22:00 01/28/19 21:20 Bactroban Ointment (For Decolonization) - NS 01/30/19 21:59 1 applic BID [facility] Administration Pantoprazole Sodium 40 mg 01/26/19 11:45 01/28/19 09:46 Protonix Iv IVPUSH 40 mg DAILY [facility] Administration ASSESSMENT/PLAN: 68 y/o/f with a PMH of h/o morbid obesity, COPD (on 2LPM home O2), CHF, LEONIDES (non -adherent to CPAP), NSTEMI, DM, HTN, and HLD who presents with hypercapniec respiratory failure, CHF exacerbation, and questionable PNA requiring intubation and admission to ICU. #Neuro - Extubated two days ago - AAOx3 now. continue to monitor #Cardio - Lasix 40mg BID IV - Lopressor IV Q4H PRN #Pulm - On BIPAP overnight, now on Nasal Cannula - Keep O2 saturation >90% - CXR: showing improvement, read pending - most recent ABG: pH 7.35, CO2 73.2, HCO3 38.9 - Duonebs PRN #ID - WBC 9.9 - Rocephin, Azithromycin Day 4 for empiric pneumonia coverage - Blood Cx, Legionella antigen, Urine Cx, influenza/RSV neg #Endo - Hx of DM - Insulin sliding scale - BGMs #Renal - BUN/Cr improvin/0.8 -> 27.7/0.6 - will D/C koenig #GI - Protonix 40mg IV #Prophylaxis - Heparin 5000 SQ TID - Protonix #FEN - may start diet after bedside speech/swallow #Dispo - stable for transfer to Tele Visit type - Emergency Visit Emergency Visit: Yes ED Registration Date: 01/25/19 Care time: The patient presented to the Emergency Department on the above date and was hospitalized for further evaluation of their emergent condition. - New Patient This patient is new to me today: No - Critical Care Critical Care patient: Yes Total Critical Care Time (in minutes): 36 Critical Care Statement: The care of this patient involved high complexity decision making to prevent further life threatening deterioration of the patient 's condition and/or to evaluate & treat vital organ system(s) failure or risk of failure. ATTENDING PHYSICIAN STATEMENT I saw and evaluated the patient. I reviewed the resident's note and discussed the case with the resident. I agree with the resident's findings and plan as documented. SUBJECTIVE: OBJECTIVE: ASSESSMENT AND PLAN:
[2019-01-29] MEDS ORDERED: MAGNESIUM SULF 50% (8.12 MEQ/2 ML-1 GM VIAL) IVPB ONE (08:21)
--- NOTE | 2019-01-29 08:57 | PN ---
Teaching Attending Note Name of Resident: Natasha Gallegos ATTENDING PHYSICIAN STATEMENT I saw and evaluated the patient. I reviewed the resident's note and discussed the case with the resident. I agree with the resident's findings and plan as documented. SUBJECTIVE: Patient seen and examined in the ICU. Remains extubated on NC O2. Awake and responsive. Feels hungry. Denies CP or SOB. Intake & Output 01/26/19 01/27/19 01/28/19 01/29/19 23:59 23:59 23:59 23:59 Intake Total 720 762 240 Output Total 2300 2450 2650 1800 Balance -1580 -1688 -2410 -1800 Weight 303 lb Last Vital Signs Temp Pulse Resp BP Pulse Ox 98.4 F 78 22 H 144/68 95 01/29/19 04:00 01/29/19 06:00 01/29/19 06:00 01/29/19 06:00 01/29/19 08:01 Active Medications Albuterol/Ipratropium (Duoneb -) 1 amp NEB RQID [facility] Last Admin: 01/29/19 08:02 Dose: 1 amp Atorvastatin Calcium (Lipitor -) 40 mg PO HS [facility] Last Admin: 01/28/19 21:19 Dose: 40 mg Chlorhexidine Gluconate (Hibiclens For Decolonization -) 1 applic TP HS [facility] Last Admin: 01/28/19 21:19 Dose: 1 applic Furosemide (Lasix Injection -) 40 mg IVPUSH BID@0600,1400 [facility] Last Admin: 01/29/19 06:50 Dose: 40 mg Heparin Sodium (Porcine) (Heparin -) 5,000 unit SQ BID [facility] Last Admin: 01/28/19 21:19 Dose: 5,000 unit Azithromycin (Zithromax 500mg Ivpb (Pre-Docked)) 500 mg in 250 mls @ 250 mls/ hr IVPB DAILY [facility] Last Admin: 01/28/19 10:28 Dose: 250 mls/hr Ceftriaxone Sodium 2 gm/ (Dextrose) 100 mls @ 200 mls/hr IVPB DAILY [facility]; Protocol Last Admin: 01/28/19 09:45 Dose: 200 mls/hr Insulin Aspart (Novolog Vial Sliding Scale -) 1 vial SQ Q6HPO [facility]; Protocol Last Admin: 01/29/19 06:50 Dose: Not Given Metoprolol Tartrate (Lopressor Injection -) 5 mg IVPUSH Q4H PRN PRN Reason: HYPERTENSION Mupirocin (Bactroban Ointment (For Decolonization) -) 1 applic NS BID [facility] Stop: 01/30/19 21:59 Last Admin: 01/28/19 21:20 Dose: 1 applic Pantoprazole Sodium (Protonix Iv) 40 mg IVPUSH DAILY [facility] Last Admin: 01/28/19 09:46 Dose: 40 mg Gen: Awake and alert on NC O2, NAD Heart: RRR Lung: distant breath sounds Abd: soft, nontender, (+) BS Ext: decreasing edema Laboratory Results - last 24 hr 01/28/19 01/28/19 01/28/19 10:30 10:30 14:59 WBC 9.4 RBC 5.40 H Hgb 14.7 Hct 46.0 H MCV 85.1 MCH 27.3 MCHC 32.0 RDW 15.9 H Plt Count 178 MPV 9.6 Absolute Neuts (auto) 7.5 Neutrophils % 80.0 Lymphocytes % 9.6 D Monocytes % 9.8 D Eosinophils % 0.3 D Basophils % 0.3 Nucleated RBC % 0 Sodium 144 Potassium 4.1 Chloride 100 Carbon Dioxide 40 H Anion Gap 4 L BUN 42.1 H Creatinine 0.8 Est GFR (CKD-EPI)AfAm 89.04 Est GFR (CKD-EPI)NonAf 76.83 POC Glucometer 158 Random Glucose 145 H Calcium 9.5 Phosphorus 3.4 Magnesium 2.0 Total Bilirubin 0.5 AST 20 ALT 45 Alkaline Phosphatase 103 Total Protein 7.4 Albumin 2.7 L Triglycerides 149 Cholesterol 211 H Total LDL Cholesterol 140 H HDL Cholesterol 44 TSH 2.95 01/28/19 01/28/19 01/29/19 18:27 23:21 05:54 WBC 9.9 RBC 5.16 Hgb 14.2 Hct 43.5 MCV 84.2 MCH 27.5 MCHC 32.6 RDW 15.7 H Plt Count 207 MPV 10.0 Absolute Neuts (auto) Neutrophils % Lymphocytes % Monocytes % Eosinophils % Basophils % Nucleated RBC % Sodium Potassium Chloride Carbon Dioxide Anion Gap BUN Creatinine Est GFR (CKD-EPI)AfAm Est GFR (CKD-EPI)NonAf POC Glucometer 157 144 Random Glucose Calcium Phosphorus Magnesium Total Bilirubin AST ALT Alkaline Phosphatase Total Protein Albumin Triglycerides Cholesterol Total LDL Cholesterol HDL Cholesterol TSH 11/09/19 11/09/19 11/09/19 05:54 05:56 06:54 WBC RBC Hgb Hct MCV MCH MCHC RDW Plt Count MPV Absolute Neuts (auto) Neutrophils % Lymphocytes % Monocytes % Eosinophils % Basophils % Nucleated RBC % Sodium 142 Potassium 3.6 Chloride 97 L Carbon Dioxide 43 H Anion Gap 2 L BUN 27.7 H Creatinine 0.6 Est GFR (CKD-EPI)AfAm 110.08 Est GFR (CKD-EPI)NonAf 94.98 POC Glucometer 125 Random Glucose 137 H Calcium 9.2 Phosphorus 3.1 Magnesium 1.6 L Total Bilirubin 0.8 AST 14 L ALT 38 Alkaline Phosphatase 90 Total Protein 6.9 Albumin 2.7 L Triglycerides Cholesterol Total LDL Cholesterol HDL Cholesterol TSH ASSESSMENT AND PLAN: Acute on Chronic Hypoxic and Hypercapneic Respiratory Failure Acute on Chronic Diastolic Heart Failure Acute Kidney Injury Resolving Acute COPD Exacerbation Suspected CAP HTN DM Hyperlipidemia Obstructive Sleep Apnea - Lasix - Monitor urine output, creatinine - Daily weights - ABX can likely be DC - Monitor off systemic steroids - inhaled bronchodilators - VTE prophylaxis - NIPPV support QHS and PRN - Symbicort BID - Cardiac Telemetry monitoring Dr Paige
--- NOTE | 2019-01-29 09:00 | PN ---
Progress Note, Physician Chief Complaint: AWAKE ALERT FEELS BETTER ON ROOM AIR - Current Medication List Current Medications: Active Medications Albuterol/Ipratropium (Duoneb -) 1 amp NEB RQID [facility] Last Admin: 01/29/19 08:02 Dose: 1 amp Atorvastatin Calcium (Lipitor -) 40 mg PO HS [facility] Last Admin: 01/28/19 21:19 Dose: 40 mg Chlorhexidine Gluconate (Hibiclens For Decolonization -) 1 applic TP HS [facility] Last Admin: 01/28/19 21:19 Dose: 1 applic Furosemide (Lasix Injection -) 40 mg IVPUSH BID@0600,1400 [facility] Last Admin: 01/29/19 06:50 Dose: 40 mg Heparin Sodium (Porcine) (Heparin -) 5,000 unit SQ BID [facility] Last Admin: 01/28/19 21:19 Dose: 5,000 unit Azithromycin (Zithromax 500mg Ivpb (Pre-Docked)) 500 mg in 250 mls @ 250 mls/ hr IVPB DAILY [facility] Last Admin: 01/28/19 10:28 Dose: 250 mls/hr Ceftriaxone Sodium 2 gm/ (Dextrose) 100 mls @ 200 mls/hr IVPB DAILY [facility]; Protocol Last Admin: 01/28/19 09:45 Dose: 200 mls/hr Insulin Aspart (Novolog Vial Sliding Scale -) 1 vial SQ Q6HPO [facility]; Protocol Last Admin: 01/29/19 06:50 Dose: Not Given Metoprolol Tartrate (Lopressor Injection -) 5 mg IVPUSH Q4H PRN PRN Reason: HYPERTENSION Mupirocin (Bactroban Ointment (For Decolonization) -) 1 applic NS BID [facility] Stop: 01/30/19 21:59 Last Admin: 01/28/19 21:20 Dose: 1 applic Pantoprazole Sodium (Protonix Iv) 40 mg IVPUSH DAILY [facility] Last Admin: 01/28/19 09:46 Dose: 40 mg - Objective Vital Signs: Vital Signs Temperature 98.4 F 01/29/19 04:00 Pulse Rate 78 01/29/19 06:00 Respiratory Rate 22 H 01/29/19 06:00 Blood Pressure 144/68 01/29/19 06:00 O2 Sat by Pulse Oximetry (%) 95 01/29/19 08:01 Constitutional: Yes: Mild Distress Cardiovascular: Yes: Regular Rate and Rhythm Respiratory: Yes: Diminished Gastrointestinal: Yes: Soft, Abdomen, Obese Genitourinary: Yes: Baltazar Present Musculoskeletal: Yes: Muscle Weakness Edema: Yes Edema: LLE: 2+, RLE: 2+ Peripheral Pulses WNL: Yes Wound/Incision: Yes: Sutures Intact Neurological: Yes: Pre-Existing Deficit Psychiatric: Yes: Other Labs: CBC, BMP 01/29/19 05:54 01/29/19 05:54 Problem List - Problems (1) Acute on chronic diastolic (congestive) heart failure Code(s): I50.33 - ACUTE ON CHRONIC DIASTOLIC (CONGESTIVE) HEART FAILURE (2) COPD exacerbation Code(s): J44.1 - CHRONIC OBSTRUCTIVE PULMONARY DISEASE W (ACUTE) EXACERBATION (3) [place] cardiac risk >20% in next 10 years Code(s): Z91.89 - [place] PERSONAL RISK FACTORS, NOT ELSEWHERE CLASSIFIED (4) HLD (hyperlipidemia) Code(s): E78.5 - HYPERLIPIDEMIA, UNSPECIFIED (5) HTN (hypertension) Code(s): I10 - ESSENTIAL (PRIMARY) HYPERTENSION Qualifiers: Hypertension type: renovascular hypertension Qualified Code(s): I15.0 - Renovascular hypertension (6) Hypercapnic respiratory failure Code(s): J96.92 - RESPIRATORY FAILURE, UNSPECIFIED WITH HYPERCAPNIA Qualifiers: Chronicity: unspecified Qualified Code(s): J96.92 - Respiratory failure, unspecified with hypercapnia (7) Obesity, morbid, BMI 50 or higher Code(s): E66.01 - MORBID (SEVERE) OBESITY DUE TO EXCESS CALORIES (8) Pneumonia Code(s): J18.9 - PNEUMONIA, UNSPECIFIED ORGANISM Qualifiers: Aspiration pneumonia type: unspecified Laterality: unspecified laterality Lung location: unspecified part of lung (9) Diastolic CHF Code(s): I50.30 - UNSPECIFIED DIASTOLIC (CONGESTIVE) HEART FAILURE (10) Diabetes Code(s): E11.9 - TYPE 2 DIABETES MELLITUS WITHOUT COMPLICATIONS Assessment/Plan TRANSFER FROM ICU TO [facility] TO CHAIR PT MARIS BALTAZAR RESTART DIET, CHANGING MEDS TO PO BGM CHECKS IV ABX STOPPED LASIX IV FOR CHF SYMBICORT/NEBS/02 SUPPORT FOR COPD EXACERBATION CANDIS BALTAZAR
[2019-01-29] MEDS: PANTOPRAZOLE 40 MG TABLET (FP) PO SCH (09:40)
[2019-01-29] MEDS: BUDESONIDE/FORMETEROL FUMARATE 160/4.5 mcg INHALER IH SCH ×2 (09:46→21:36)
[2019-01-29] MEDS: MUPIROCIN 2% TOPICAL OINTMENT FOR DECOLONIZATION NS SCH (09:47)
--- NOTE | 2019-01-29 09:50 | PN ---
Progress Note, Physician History of Present Illness: 68 y.o. F w/ PMHx. of [place], COPD (on 2.5L NC @ home), LEONIDES (on home CPAP), DM2, HTN and HLD presents for worsening shortness of breath at the request of her daughter. 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 had been having worsening shortness of breath with productive sputum for "awhile" now and was refusing to go to the hospital. Pt. was also complaining of lower abdominal pain per daughter and RN prior to intubation. Per chart review Pt. was last admitted in March for similar symptoms requiring intubation 2/2 poor compliance with Lasix and with CPAP. Last Echo in March showed and EF of 60-65% with mildly impaired relaxation. Per daughter Pt. did not have any fevers at home and denied any other acute complaints however was using OTC NSAIDs to treat joint and back pain. - Current Medication List Current Medications: Active Medications Albuterol/Ipratropium (Duoneb -) 1 amp NEB RQID [facility] Last Admin: 01/29/19 08:02 Dose: 1 amp Atorvastatin Calcium (Lipitor -) 40 mg PO HS [facility] Last Admin: 01/28/19 21:19 Dose: 40 mg Budesonide/Formoterol Fumarate (Symbicort 160/4.5mcg -) 2 puff IH BID [facility] Last Admin: 01/29/19 09:46 Dose: 2 puff Chlorhexidine Gluconate (Hibiclens For Decolonization -) 1 applic TP HS [facility] Last Admin: 01/28/19 21:19 Dose: 1 applic Furosemide (Lasix Injection -) 40 mg IVPUSH BID@0600,1400 [facility] Last Admin: 01/29/19 06:50 Dose: 40 mg Gabapentin (Neurontin -) 300 mg PO TID [facility] Heparin Sodium (Porcine) (Heparin -) 5,000 unit SQ BID [facility] Last Admin: 01/28/19 21:19 Dose: 5,000 unit Insulin Aspart (Novolog Vial Sliding Scale -) 1 vial SQ Q6HPO [facility]; Protocol Last Admin: 01/29/19 06:50 Dose: Not Given Mupirocin (Bactroban Ointment (For Decolonization) -) 1 applic NS BID [facility] Stop: 01/30/19 21:59 Last Admin: 01/29/19 09:47 Dose: 1 applic Nystatin/Triamcinolone Acetonide (Mycolog Ii Cream -) 1 applic TP BID [facility] Pantoprazole Sodium (Protonix -) 40 mg PO DAILY [facility] Last Admin: 01/29/19 09:40 Dose: 40 mg - Objective Vital Signs: Vital Signs Temperature 98.4 F 01/29/19 04:00 Pulse Rate 78 01/29/19 06:00 Respiratory Rate 22 H 01/29/19 06:00 Blood Pressure 144/68 01/29/19 06:00 O2 Sat by Pulse Oximetry (%) 95 01/29/19 08:01 Eyes: Yes: WNL, Conjunctiva Clear, EOM Intact HENT: Yes: WNL, Atraumatic, Normocephalic Neck: Yes: WNL, Supple, Trachea Midline Cardiovascular: Yes: WNL, Regular Rate and Rhythm Respiratory: Yes: WNL, Regular, CTA Bilaterally Gastrointestinal: Yes: WNL, Normal Bowel Sounds Genitourinary: Yes: WNL Musculoskeletal: Yes: WNL Extremities: Yes: WNL Edema: Yes Integumentary: Yes: WNL Neurological: Yes: WNL, Alert, Oriented ...Motor Strength: WNL Psychiatric: Yes: WNL Labs: CBC, BMP 01/29/19 05:54 01/29/19 05:54 Problem List - Problems (1) CHF (congestive heart failure) Code(s): I50.9 - HEART FAILURE, UNSPECIFIED Qualifiers: Heart failure type: diastolic Heart failure chronicity: acute on chronic Qualified Code(s): I50.33 - Acute on chronic diastolic (congestive) heart failure (2) COPD exacerbation Code(s): J44.1 - CHRONIC OBSTRUCTIVE PULMONARY DISEASE W (ACUTE) EXACERBATION (3) Elevated troponin Code(s): R79.89 - OTHER SPECIFIED ABNORMAL FINDINGS OF BLOOD CHEMISTRY (4) HLD (hyperlipidemia) Code(s): E78.5 - HYPERLIPIDEMIA, UNSPECIFIED (5) HTN (hypertension) Code(s): I10 - ESSENTIAL (PRIMARY) HYPERTENSION Qualifiers: Hypertension type: renovascular hypertension Qualified Code(s): I15.0 - Renovascular hypertension (6) Hypercapnic respiratory failure Code(s): J96.92 - RESPIRATORY FAILURE, UNSPECIFIED WITH HYPERCAPNIA Qualifiers: Chronicity: unspecified Qualified Code(s): J96.92 - Respiratory failure, unspecified with hypercapnia (7) Leukocytosis Code(s): D72.829 - ELEVATED WHITE BLOOD CELL COUNT, UNSPECIFIED (8) Obesity, morbid, BMI 50 or higher Code(s): E66.01 - MORBID (SEVERE) OBESITY DUE TO EXCESS CALORIES (9) Pneumonia Code(s): J18.9 - PNEUMONIA, UNSPECIFIED ORGANISM Qualifiers: Aspiration pneumonia type: unspecified Laterality: unspecified laterality Lung location: unspecified part of lung (10) Acute on chronic respiratory failure with hypoxia and hypercapnia Code(s): J96.21 - ACUTE AND CHRONIC RESPIRATORY FAILURE WITH HYPOXIA; J96.22 - ACUTE AND CHRONIC RESPIRATORY FAILURE WITH HYPERCAPNIA (11) CHF exacerbation Code(s): I50.9 - HEART FAILURE, UNSPECIFIED Qualifiers: Heart failure type: unspecified Qualified Code(s): I50.9 - Heart failure, unspecified (12) Diastolic CHF Code(s): I50.30 - UNSPECIFIED DIASTOLIC (CONGESTIVE) HEART FAILURE (13) NSTEMI (non-ST elevated myocardial infarction) Code(s): I21.4 - NON-ST ELEVATION (NSTEMI) MYOCARDIAL INFARCTION (14) RSV (acute bronchiolitis due to respiratory syncytial virus) Code(s): J21.0 - ACUTE BRONCHIOLITIS DUE TO RESPIRATORY SYNCYTIAL VIRUS (15) Respiratory failure Code(s): J96.90 - RESPIRATORY FAILURE, UNSP, UNSP W HYPOXIA OR HYPERCAPNIA Qualifiers: Chronicity: unspecified Respiratory failure complication: hypoxia and hypercapnia Qualified Code(s): J96.91 - Respiratory failure, unspecified with hypoxia; J96.92 - Respiratory failure, unspecified with hypercapnia (16) Diabetes Code(s): E11.9 - TYPE 2 DIABETES MELLITUS WITHOUT COMPLICATIONS Assessment/Plan Problems (1) COPD exacerbation Assessment/Plan: Intubated; plans for extubation today. O2, bronchodilators, steroids per pumonologist. Code(s): J44.1 - CHRONIC OBSTRUCTIVE PULMONARY DISEASE W (ACUTE) EXACERBATION (2) HLD (hyperlipidemia) Assessment/Plan: on atorvastatin at home; elevated LDL. Code(s): E78.5 - HYPERLIPIDEMIA, UNSPECIFIED (3) HTN (hypertension) Assessment/Plan: On metoprolol, losartan as outpatient. Code(s): I10 - ESSENTIAL (PRIMARY) HYPERTENSION Qualifiers: Hypertension type: renovascular hypertension Qualified Code(s): I15.0 - Renovascular hypertension (4) Hypercapnic respiratory failure Assessment/Plan: extubated. F/u bronchodilators, antibiotics, O2, and steroids with economic forecaster. Code(s): J96.92 - RESPIRATORY FAILURE, UNSPECIFIED WITH HYPERCAPNIA Qualifiers: Chronicity: unspecified Qualified Code(s): J96.92 - Respiratory failure, unspecified with hypercapnia (5) Obesity, morbid, BMI 50 or higher Assessment/Plan: The imperative need to modify diet and decrease weight was discussed with pt. Dietary/diabetic consult would be of benefit. Code(s): E66.01 - MORBID (SEVERE) OBESITY DUE TO EXCESS CALORIES (6) Diastolic CHF Code(s): I50.30 - UNSPECIFIED DIASTOLIC (CONGESTIVE) HEART FAILURE (7) Diabetes Code(s): E11.9 - TYPE 2 DIABETES MELLITUS WITHOUT COMPLICATIONS (8) [place] cardiac risk >20% in next 10 years Assessment/Plan: Pt had stress MIBI 03/2018 that showed no ischemia; however, transient ischemic dilatation score was borderline elevated, which may be indicitive of underlying CAD. ECHO: normal LVEF; abnormal diastolic compliance; borderline RVE; mild MR; trace TR. Once stable, will have further coronary artery evaluation (CTA or coronary angiogram) as an outpatient. Aggressive lipid-lowering; diet modification; weight loss; BP and glucose control. Code(s): Z91.89 - OTH PERSONAL RISK FACTORS, NOT ELSEWHERE CLASSIFIED (9) Acute on chronic diastolic (congestive) heart failure Assessment/Plan: Now extubated. On metoprolol (and has been on losartan as outpatient). F/u BUN/Cr, electrolytes, daily weight, and Is and Os. See "[place] Risk" regarding further coronary artery evaluation. Code(s): I50.33 - ACUTE ON CHRONIC DIASTOLIC (CONGESTIVE) HEART FAILURE Assessment/Plan CCT time spetn: 36 minutes.
--- NOTE | 2019-01-29 11:30 | EKG ---
Test Reason : Blood Pressure : / mmHG Vent. Rate : 078 BPM Atrial Rate : 078 BPM P-R Int : 122 ms QRS Dur : 096 ms QT Int : 416 ms P-R-T Axes : 063 040 -06 degrees QTc Int : 474 ms NORMAL SINUS RHYTHM T WAVE ABNORMALITY, CONSIDER ANTERIOR ISCHEMIA PROLONGED QT ABNORMAL ECG WHEN COMPARED WITH ECG OF 25-JAN-2019 12:09, INVERTED T WAVES HAVE REPLACED NONSPECIFIC T WAVE ABNORMALITY IN ANTERIOR LEADS Confirmed by MISTY CHAN, MATT ([id number]) on 01/29/2019 11:29:45 AM Referred By: Confirmed By:MATT JAY MD
[2019-01-29] MEDS: HEPARIN NA (PORCINE) 5,000 UNITS/ML 1ML VIAL SQ SCH ×2 (11:59→21:35)
--- NOTE | 2019-01-29 13:00 | PN ---
Progress Note, Physician History of Present Illness: AWAKE,ALERT OFFERS NO COMPLAINTS BREATHING NON LABORED AFEBRILE WBC WNL - Current Medication List Current Medications: Active Medications Albuterol/Ipratropium (Duoneb -) 1 amp NEB RQID [facility] Last Admin: 01/29/19 12:11 Dose: 1 amp Atorvastatin Calcium (Lipitor -) 40 mg PO HS [facility] Last Admin: 01/28/19 21:19 Dose: 40 mg Budesonide/Formoterol Fumarate (Symbicort 160/4.5mcg -) 2 puff IH BID [facility] Last Admin: 01/29/19 09:46 Dose: 2 puff Chlorhexidine Gluconate (Hibiclens For Decolonization -) 1 applic TP HS [facility] Last Admin: 01/28/19 21:19 Dose: 1 applic Furosemide (Lasix Injection -) 40 mg IVPUSH BID@0600,1400 [facility] Last Admin: 01/29/19 06:50 Dose: 40 mg Gabapentin (Neurontin -) 300 mg PO TID [facility] Heparin Sodium (Porcine) (Heparin -) 5,000 unit SQ BID [facility] Last Admin: 01/29/19 11:59 Dose: 5,000 unit Insulin Aspart (Novolog Vial Sliding Scale -) 1 vial SQ Q6HPO [facility]; Protocol Last Admin: 01/29/19 06:50 Dose: Not Given Mupirocin (Bactroban Ointment (For Decolonization) -) 1 applic NS BID [facility] Stop: 01/30/19 21:59 Last Admin: 01/29/19 09:47 Dose: 1 applic Nystatin/Triamcinolone Acetonide (Mycolog Ii Cream -) 1 applic TP BID [facility] Pantoprazole Sodium (Protonix -) 40 mg PO DAILY [facility] Last Admin: 01/29/19 09:40 Dose: 40 mg - Objective Vital Signs: Vital Signs Temperature 98.4 F 01/29/19 04:00 Pulse Rate 78 01/29/19 06:00 Respiratory Rate 22 H 01/29/19 06:00 Blood Pressure 144/68 01/29/19 06:00 O2 Sat by Pulse Oximetry (%) 95 01/29/19 08:01 Constitutional: Yes: No Distress, Obese Eyes: Yes: Conjunctiva Clear Cardiovascular: Yes: Regular Rate and Rhythm, S1, S2 Respiratory: Yes: CTA Bilaterally Gastrointestinal: Yes: Normal Bowel Sounds, Soft. No: Tenderness Edema: Yes Labs: CBC, BMP 01/29/19 05:54 01/29/19 05:54 Assessment/Plan S/P RESPIRATORY FAILURE R/O CAP MORBID OBESITY DIABETES MELLITUS CONTINUE EMPIRIC CEFTRIAXONE
[2019-01-29] MEDS: NYSTATIN/TRIAMCINOLONE TOPICAL CREAM 15 GM TUBE TP SCH ×2 (13:16→21:35)
[2019-01-29] MEDS ORDERED: DEXTROSE 5%-WATER 100 ML IVPB ONE (13:55)
[2019-01-29] MEDS: GABAPENTIN 300 MG CAPSULE (FP) PO SCH ×2 (14:09→21:35)
[2019-01-29] MEDS: CEFTRIAXONE 2 GM in DEXTROSE 5%-WATER 100 ML IVPB SCH (14:13)
[2019-01-29] MEDS: ATORVASTATIN CA 40 MG TABLET (FP) PO SCH (21:35)
[2019-01-29] MEDS ORDERED: CHLORHEXIDINE GLUCONATE 4% CLEANSER FOR DECOLONIZATION TP SCH (22:00)
[2019-01-29] MEDS ORDERED: MUPIROCIN 2% TOPICAL OINTMENT FOR DECOLONIZATION NS SCH (22:00)
[2019-01-30] MEDS ORDERED: INSULIN SLIDING SCALE (NOVOLOG) 1 VIAL SQ SCH
[2019-01-30] MEDS: FUROSEMIDE 40 MG/4 ML INJECTABLE VIAL IVPUSH SCH ×2 (06:24→13:52)
[2019-01-30] MEDS: GABAPENTIN 300 MG CAPSULE (FP) PO SCH ×3 (06:24→21:34)
[2019-01-30] MEDS: INSULIN SLIDING SCALE (NOVOLOG) 1 VIAL SQ SCH ×4 (06:25→21:36)
[2019-01-30] MEDS: ALBUTEROL SO4 2.5/IPRATROPIUM 0.5 INH SOL 3 ML VIAL.NEB. NEB SCH ×4 (07:50→20:08)
--- NOTE | 2019-01-30 08:49 | PN ---
Progress Note, Physician History of Present Illness: 68 y.o. F w/ PMHx. of [place], COPD (on 2.5L NC @ home), LEONIDES (on home CPAP), DM2, HTN and HLD presents for worsening shortness of breath at the request of her daughter. Per daughter at bedside who does not live with her, Pt. has SWIMMER from 9am-2pm, Pt. had been having worsening shortness of breath with productive sputum for "awhile" now and was refusing to go to the hospital. Pt. was also complaining of lower abdominal pain per daughter and RN prior to intubation. Per chart review Pt. was last admitted in March for similar symptoms requiring intubation 2/2 poor compliance with Lasix and with CPAP. Last Echo in March showed and EF of 60-65% with mildly impaired relaxation. Per daughter Pt. did not have any fevers at home and denied any other acute complaints however was using OTC NSAIDs to treat joint and back pain. - Current Medication List Current Medications: Active Medications Albuterol/Ipratropium (Duoneb -) 1 amp NEB RQID [facility] Last Admin: 01/30/19 07:50 Dose: 1 amp Atorvastatin Calcium (Lipitor -) 40 mg PO HS [facility] Last Admin: 01/29/19 21:35 Dose: 40 mg Budesonide/Formoterol Fumarate (Symbicort 160/4.5mcg -) 2 puff IH BID [facility] Last Admin: 01/29/19 21:36 Dose: 2 puff Furosemide (Lasix Injection -) 40 mg IVPUSH BID@0600,1400 [facility] Last Admin: 01/30/19 06:24 Dose: 40 mg Gabapentin (Neurontin -) 300 mg PO TID [facility] Last Admin: 01/30/19 06:24 Dose: 300 mg Heparin Sodium (Porcine) (Heparin -) 5,000 unit SQ BID [facility] Last Admin: 01/29/19 21:35 Dose: 5,000 unit Ceftriaxone Sodium 2 gm/ (Dextrose) 100 mls @ 200 mls/hr IVPB DAILY [facility]; Protocol Last Admin: 01/29/19 14:13 Dose: 200 mls/hr Insulin Aspart (Novolog Vial Sliding Scale -) 1 vial SQ [facility]; Protocol Last Admin: 01/30/19 06:25 Dose: Not Given Nystatin/Triamcinolone Acetonide (Mycolog Ii Cream -) 1 applic TP BID [facility] Last Admin: 01/29/19 21:35 Dose: 1 applic Pantoprazole Sodium (Protonix -) 40 mg PO DAILY [facility] Last Admin: 01/29/19 09:40 Dose: 40 mg - Objective Vital Signs: Vital Signs Temperature 98.0 F 01/30/19 06:00 Pulse Rate 91 H 01/30/19 06:00 Respiratory Rate 20 01/30/19 06:00 Blood Pressure 101/63 01/30/19 06:00 O2 Sat by Pulse Oximetry (%) 96 01/29/19 21:00 Eyes: Yes: WNL, Conjunctiva Clear, EOM Intact HENT: Yes: WNL, Atraumatic, Normocephalic Neck: Yes: WNL, Supple, Trachea Midline Cardiovascular: Yes: WNL, Regular Rate and Rhythm Respiratory: Yes: WNL, Regular, CTA Bilaterally Gastrointestinal: Yes: WNL, Normal Bowel Sounds Genitourinary: Yes: WNL Musculoskeletal: Yes: WNL Extremities: Yes: WNL Edema: No Peripheral Pulses WNL: Yes Integumentary: Yes: WNL Neurological: Yes: WNL, Alert, Oriented ...Motor Strength: WNL Psychiatric: Yes: WNL Labs: CBC, BMP 01/29/19 05:54 01/29/19 05:54 Problem List - Problems (1) CHF (congestive heart failure) Code(s): I50.9 - HEART FAILURE, UNSPECIFIED Qualifiers: Heart failure type: diastolic Heart failure chronicity: acute on chronic Qualified Code(s): I50.33 - Acute on chronic diastolic (congestive) heart failure (2) COPD exacerbation Code(s): J44.1 - CHRONIC OBSTRUCTIVE PULMONARY DISEASE W (ACUTE) EXACERBATION (3) Elevated troponin Code(s): R79.89 - OTHER SPECIFIED ABNORMAL FINDINGS OF BLOOD CHEMISTRY (4) HLD (hyperlipidemia) Code(s): E78.5 - HYPERLIPIDEMIA, UNSPECIFIED (5) HTN (hypertension) Code(s): I10 - ESSENTIAL (PRIMARY) HYPERTENSION Qualifiers: Hypertension type: renovascular hypertension Qualified Code(s): I15.0 - Renovascular hypertension (6) Hypercapnic respiratory failure Code(s): J96.92 - RESPIRATORY FAILURE, UNSPECIFIED WITH HYPERCAPNIA Qualifiers: Chronicity: unspecified Qualified Code(s): J96.92 - Respiratory failure, unspecified with hypercapnia (7) Leukocytosis Code(s): D72.829 - ELEVATED WHITE BLOOD CELL COUNT, UNSPECIFIED (8) Obesity, morbid, BMI 50 or higher Code(s): E66.01 - MORBID (SEVERE) OBESITY DUE TO EXCESS CALORIES (9) Pneumonia Code(s): J18.9 - PNEUMONIA, UNSPECIFIED ORGANISM Qualifiers: Aspiration pneumonia type: unspecified Laterality: unspecified laterality Lung location: unspecified part of lung (10) Acute on chronic respiratory failure with hypoxia and hypercapnia Code(s): J96.21 - ACUTE AND CHRONIC RESPIRATORY FAILURE WITH HYPOXIA; J96.22 - ACUTE AND CHRONIC RESPIRATORY FAILURE WITH HYPERCAPNIA (11) CHF exacerbation Code(s): I50.9 - HEART FAILURE, UNSPECIFIED Qualifiers: Heart failure type: unspecified Qualified Code(s): I50.9 - Heart failure, unspecified (12) Diastolic CHF Code(s): I50.30 - UNSPECIFIED DIASTOLIC (CONGESTIVE) HEART FAILURE (13) NSTEMI (non-ST elevated myocardial infarction) Code(s): I21.4 - NON-ST ELEVATION (NSTEMI) MYOCARDIAL INFARCTION (14) RSV (acute bronchiolitis due to respiratory syncytial virus) Code(s): J21.0 - ACUTE BRONCHIOLITIS DUE TO RESPIRATORY SYNCYTIAL VIRUS (15) Respiratory failure Code(s): J96.90 - RESPIRATORY FAILURE, UNSP, UNSP W HYPOXIA OR HYPERCAPNIA Qualifiers: Chronicity: unspecified Respiratory failure complication: hypoxia and hypercapnia Qualified Code(s): J96.91 - Respiratory failure, unspecified with hypoxia; J96.92 - Respiratory failure, unspecified with hypercapnia (16) Diabetes Code(s): E11.9 - TYPE 2 DIABETES MELLITUS WITHOUT COMPLICATIONS Assessment/Plan Problems (1) COPD exacerbation Assessment/Plan: Intubated; plans for extubation today. O2, bronchodilators, steroids per pumonologist. Code(s): J44.1 - CHRONIC OBSTRUCTIVE PULMONARY DISEASE W (ACUTE) EXACERBATION (2) HLD (hyperlipidemia) Assessment/Plan: on atorvastatin at home; elevated LDL. Code(s): E78.5 - HYPERLIPIDEMIA, UNSPECIFIED (3) HTN (hypertension) Assessment/Plan: On metoprolol, losartan as outpatient. Code(s): I10 - ESSENTIAL (PRIMARY) HYPERTENSION Qualifiers: Hypertension type: renovascular hypertension Qualified Code(s): I15.0 - Renovascular hypertension (4) Hypercapnic respiratory failure Assessment/Plan: extubated. F/u bronchodilators, antibiotics, O2, and steroids with senior procurement manager. Code(s): J96.92 - RESPIRATORY FAILURE, UNSPECIFIED WITH HYPERCAPNIA Qualifiers: Chronicity: unspecified Qualified Code(s): J96.92 - Respiratory failure, unspecified with hypercapnia (5) Obesity, morbid, BMI 50 or higher Assessment/Plan: The imperative need to modify diet and decrease weight was discussed with pt. Dietary/diabetic consult would be of benefit. Code(s): E66.01 - MORBID (SEVERE) OBESITY DUE TO EXCESS CALORIES (6) Diastolic CHF Code(s): I50.30 - UNSPECIFIED DIASTOLIC (CONGESTIVE) HEART FAILURE (7) Diabetes Code(s): E11.9 - TYPE 2 DIABETES MELLITUS WITHOUT COMPLICATIONS (8) [place] cardiac risk >20% in next 10 years Assessment/Plan: Pt had stress MIBI 03/2018 that showed no ischemia; however, transient ischemic dilatation score was borderline elevated, which may be indicitive of underlying CAD. ECHO: normal LVEF; abnormal diastolic compliance; borderline RVE; mild MR; trace TR. Once stable, will have further coronary artery evaluation (CTA or coronary angiogram) as an outpatient. Aggressive lipid-lowering; diet modification; weight loss; BP and glucose control. Code(s): Z91.89 - [facility] PERSONAL RISK FACTORS, NOT ELSEWHERE CLASSIFIED (9) Acute on chronic diastolic (congestive) heart failure Assessment/Plan: Now extubated. On metoprolol (and has been on losartan as outpatient). F/u BUN/Cr, electrolytes, daily weight, and Is and Os. See "[place] Risk" regarding further coronary artery evaluation. Code(s): I50.33 - ACUTE ON CHRONIC DIASTOLIC (CONGESTIVE) HEART FAILURE
[2019-01-30] MEDS ORDERED: DEXTROSE 5%-WATER 100 ML IVPB ONE (09:05)
[2019-01-30] MEDS: NYSTATIN/TRIAMCINOLONE TOPICAL CREAM 15 GM TUBE TP SCH ×2 (09:15→21:36)
[2019-01-30] MEDS: PANTOPRAZOLE 40 MG TABLET (FP) PO SCH (09:16)
[2019-01-30] MEDS: HEPARIN NA (PORCINE) 5,000 UNITS/ML 1ML VIAL SQ SCH ×2 (09:16→21:36)
[2019-01-30] MEDS: CEFTRIAXONE 2 GM in DEXTROSE 5%-WATER 100 ML IVPB SCH (09:16)
[2019-01-30] MEDS: BUDESONIDE/FORMETEROL FUMARATE 160/4.5 mcg INHALER IH SCH ×2 (09:19→21:36)
--- NOTE | 2019-01-30 10:38 | PN ---
Progress Note (short form) - Note Progress Note: Awake and alert in NAD on NC O2. Reports used NIPPV support for 2 to 3 hours overnight. Denies CP or SOB. Intake & Output 01/27/19 01/28/19 01/29/19 01/30/19 23:59 23:59 23:59 23:59 Intake Total 762 240 940 Output Total 2450 2650 3800 Balance -7231 -8809 -2860 Weight 229 lb 9.6 oz Last Vital Signs Temp Pulse Resp BP Pulse Ox 98.0 F 91 H 20 101/63 96 01/30/19 06:00 01/30/19 06:00 01/30/19 06:00 01/30/19 06:00 01/29/19 21:00 Active Medications Albuterol/Ipratropium (Duoneb -) 1 amp NEB RQID [facility] Last Admin: 01/30/19 07:50 Dose: 1 amp Atorvastatin Calcium (Lipitor -) 40 mg PO HS [facility] Last Admin: 01/29/19 21:35 Dose: 40 mg Budesonide/Formoterol Fumarate (Symbicort 160/4.5mcg -) 2 puff IH BID [facility] Last Admin: 01/30/19 09:19 Dose: 2 puff Furosemide (Lasix Injection -) 40 mg IVPUSH BID@0600,1400 [facility] Last Admin: 01/30/19 06:24 Dose: 40 mg Gabapentin (Neurontin -) 300 mg PO TID [facility] Last Admin: 01/30/19 06:24 Dose: 300 mg Heparin Sodium (Porcine) (Heparin -) 5,000 unit SQ BID [facility] Last Admin: 01/30/19 09:16 Dose: 5,000 unit Ceftriaxone Sodium 2 gm/ (Dextrose) 100 mls @ 200 mls/hr IVPB DAILY [facility]; Protocol Last Admin: 01/30/19 09:16 Dose: 200 mls/hr Insulin Aspart (Novolog Vial Sliding Scale -) 1 vial SQ ACHS [facility]; Protocol Last Admin: 01/30/19 06:25 Dose: Not Given Nystatin/Triamcinolone Acetonide (Mycolog Ii Cream -) 1 applic TP BID [facility] Last Admin: 01/30/19 09:15 Dose: 1 applic Pantoprazole Sodium (Protonix -) 40 mg PO DAILY [facility] Last Admin: 01/30/19 09:16 Dose: 40 mg Gen: Awake and alert on NC O2, NAD Heart: RRR Lung: distant breath sounds Abd: soft, nontender, (+) BS Ext: decreasing edema Laboratory Results - last 24 hr 01/29/19 01/29/19 01/29/19 14:05 18:30 20:50 POC Glucometer 186 183 132 01/30/19 05:58 POC Glucometer 139 ASSESSMENT AND PLAN: Acute on Chronic Hypoxic and Hypercapneic Respiratory Failure Acute on Chronic Diastolic Heart Failure Acute Kidney Injury Resolving Acute COPD Exacerbation Suspected CAP HTN DM Hyperlipidemia Obstructive Sleep Apnea - Lasix - Monitor urine output, creatinine - Daily weights - ABX per ID - Monitor off systemic steroids - inhaled bronchodilators - VTE prophylaxis - NIPPV support QHS and PRN - Symbicort BID - Cardiac Telemetry monitoring Dr Paige
--- NOTE | 2019-01-30 11:33 | PN ---
Progress Note, Physician Chief Complaint: Respiratory Failure CHF COPD Morbid Obesity History of Present Illness: Previous notes and events reviewed awake and alert NAD complain of productive cough with white phlegm, denies SOB refusing Bipap HS~instructed to bring machine from home to use here at night - Current Medication List Current Medications: Active Medications Albuterol/Ipratropium (Duoneb -) 1 amp NEB RQID [facility] Last Admin: 01/30/19 07:50 Dose: 1 amp Atorvastatin Calcium (Lipitor -) 40 mg PO HS [facility] Last Admin: 01/29/19 21:35 Dose: 40 mg Budesonide/Formoterol Fumarate (Symbicort 160/4.5mcg -) 2 puff IH BID [facility] Last Admin: 01/30/19 09:19 Dose: 2 puff Furosemide (Lasix Injection -) 40 mg IVPUSH BID@0600,1400 [facility] Last Admin: 01/30/19 06:24 Dose: 40 mg Gabapentin (Neurontin -) 300 mg PO TID [facility] Last Admin: 01/30/19 06:24 Dose: 300 mg Heparin Sodium (Porcine) (Heparin -) 5,000 unit SQ BID [facility] Last Admin: 01/30/19 09:16 Dose: 5,000 unit Ceftriaxone Sodium 2 gm/ (Dextrose) 100 mls @ 200 mls/hr IVPB DAILY [facility]; Protocol Last Admin: 01/30/19 09:16 Dose: 200 mls/hr Insulin Aspart (Novolog Vial Sliding Scale -) 1 vial SQ ACHS [facility]; Protocol Last Admin: 01/30/19 10:57 Dose: 2 units Nystatin/Triamcinolone Acetonide (Mycolog Ii Cream -) 1 applic TP BID [facility] Last Admin: 01/30/19 09:15 Dose: 1 applic Pantoprazole Sodium (Protonix -) 40 mg PO DAILY [facility] Last Admin: 01/30/19 09:16 Dose: 40 mg - Objective Vital Signs: Vital Signs Temperature 98.0 F 01/30/19 06:00 Pulse Rate 91 H 01/30/19 06:00 Respiratory Rate 20 01/30/19 06:00 Blood Pressure 101/63 01/30/19 06:00 O2 Sat by Pulse Oximetry (%) 96 01/29/19 21:00 Constitutional: Yes: No Distress, Calm, Obese Eyes: Yes: Conjunctiva Clear HENT: Yes: Atraumatic Cardiovascular: Yes: Regular Rate and Rhythm Respiratory: Yes: Regular, Diminished, On Nasal O2 Gastrointestinal: Yes: Normal Bowel Sounds, Soft, Abdomen, Obese Genitourinary: Yes: Incontinence Musculoskeletal: Yes: Muscle Weakness Extremities: Yes: WNL Edema: No Neurological: Yes: Alert, Oriented Psychiatric: Yes: Alert, Oriented Labs: CBC, BMP 01/29/19 05:54 01/29/19 05:54 Microbiology 01/25/19 16:55 Blood - Peripheral Venous Blood Culture - Preliminary NO GROWTH OBTAINED AFTER 96 HOURS, INCUBATION TO CONTINUE FOR 1 DAYS. 01/25/19 16:55 Blood - Peripheral Venous Blood Culture - Preliminary NO GROWTH OBTAINED AFTER 96 HOURS, INCUBATION TO CONTINUE FOR 1 DAYS. 01/26/19 10:00 Sputum - Endotrachea Suction/Ventilator Gram Stain - Final 01/26/19 10:00 Sputum - Endotrachea Suction/Ventilator Sputum Culture - Final NORMAL RESPIRATORY WILLAM 01/25/19 16:35 Urine - Urine Villalba Urine Culture - Final NO GROWTH OBTAINED 01/26/19 10:00 Urine For Antigen Detection Legionella Antigen - Final 01/26/19 10:00 Urine For Antigen Detection Streptococcus pneumoniae Antigen (M - Final Problem List - Problems (1) COPD exacerbation Assessment/Plan: -Pulm on board -O2 via NC -Bipap HS -bronchodilators -keep SpO2 >90% -Symbicort Code(s): J44.1 - CHRONIC OBSTRUCTIVE PULMONARY DISEASE W (ACUTE) EXACERBATION (2) Acute on chronic respiratory failure with hypoxia and hypercapnia Assessment/Plan: -Pulm on board -bronchodilators -O2 via NC -Bipap HS -keep SpO2 >90% -ABGs -Legionella neg, Influenza neg, RSV neg, Sputum culture neg Code(s): J96.21 - ACUTE AND CHRONIC RESPIRATORY FAILURE WITH HYPOXIA; J96.22 - ACUTE AND CHRONIC RESPIRATORY FAILURE WITH HYPERCAPNIA (3) CHF exacerbation Assessment/Plan: -Cardiology on board -tele monitoring -BNP 6753~4268 -daily weights -strict I&Os -Furosemide Code(s): I50.9 - HEART FAILURE, UNSPECIFIED Qualifiers: Heart failure type: unspecified Qualified Code(s): I50.9 - Heart failure, unspecified (4) Diabetes Assessment/Plan: -[facility] -HgA1c 7.5% Code(s): E11.9 - TYPE 2 DIABETES MELLITUS WITHOUT COMPLICATIONS (5) HTN (hypertension) Assessment/Plan: -low Na/dibetic diet -monitor BP Code(s): I10 - ESSENTIAL (PRIMARY) HYPERTENSION Qualifiers: Hypertension type: renovascular hypertension Qualified Code(s): I15.0 - Renovascular hypertension (6) HLD (hyperlipidemia) Assessment/Plan: -Atorvastatin Code(s): E78.5 - HYPERLIPIDEMIA, UNSPECIFIED (7) Leukocytosis Assessment/Plan: -WBC 9.9 -afebrile -ID on board -Ceftriaxone -LA ordered -BC neg -UC neg -CXR shows no pneumothorax, pleural effusion, no vascular congestive changes, no pulmonary infiltrates Code(s): D72.829 - ELEVATED WHITE BLOOD CELL COUNT, UNSPECIFIED (8) Elevated troponin Assessment/Plan: -troponin 0.42,~0.22 -Tele monitoring -Cardiology on board Code(s): R79.89 - OTHER SPECIFIED ABNORMAL FINDINGS OF BLOOD CHEMISTRY Assessment/Plan see problem list dvt ppx
[2019-01-30] MEDS: ATORVASTATIN CA 40 MG TABLET (FP) PO SCH (21:36)
[2019-01-31] MEDS: GABAPENTIN 300 MG CAPSULE (FP) PO SCH ×3 (06:35→21:27)
[2019-01-31] MEDS: INSULIN SLIDING SCALE (NOVOLOG) 1 VIAL SQ SCH ×4 (06:40→21:27)
[2019-01-31] MEDS: FUROSEMIDE 40 MG/4 ML INJECTABLE VIAL IVPUSH SCH ×2 (06:40→14:31)
[2019-01-31 06:45] LABS: HEMATOCRIT 44.1 % (32.4-45.2); HEMOGLOBIN 14.1 GM/dL (10.7-15.3); MCH 27.1 pg (25.7-33.7); MCHC 31.9 g/dl (32.0-36.0); MEAN CELL VOLUME 84.9 fl (80-96); MEAN PLT VOLUME 9.7 fl (7.5-11.1); PLATELET COUNT 206 K/MM3 (134-434); RDW 15.7 % (11.6-15.6); WHITE BLOOD COUNT 11.7 K/mm3 (4.0-10.0)
[2019-01-31] MEDS: ALBUTEROL SO4 2.5/IPRATROPIUM 0.5 INH SOL 3 ML VIAL.NEB. NEB SCH ×4 (07:25→20:35)
[2019-01-31 07:27] LABS: ALBUMIN 2.6 g/dl (3.4-5.0); BILIRUBIN,TOTAL 1.3 mg/dL (0.2-1); BLOOD UREA NITROGEN 19.7 mg/dL (7-18); CALCIUM 8.1 mg/dL (8.5-10.1); CREATININE 0.8 mg/dL (0.55-1.3); POTASSIUM 5.5 mmol/L (3.5-5.1); TOT PROT 7.3 g/dl (6.4-8.2)
[2019-01-31] MEDS ORDERED: SODIUM ZIRCONIUM CYCLOSILICATE (LOKELMA) 5 GM PACKET PO ONE (07:45)
--- NOTE | 2019-01-31 08:06 | PN ---
Progress Note, Physician History of Present Illness: 68 y.o. F w/ PMHx. of [place], COPD (on 2.5L NC @ home), LEONIDES (on home CPAP), DM2, HTN and HLD presents for worsening shortness of breath at the request of her daughter. Per daughter at bedside who does not live with her, Pt. has [employer] from 9am-2pm, Pt. had been having worsening shortness of breath with productive sputum for "awhile" now and was refusing to go to the hospital. Pt. was also complaining of lower abdominal pain per daughter and RN prior to intubation. Per chart review Pt. was last admitted in March for similar symptoms requiring intubation 2/2 poor compliance with Lasix and with CPAP. Last Echo in March showed and EF of 60-65% with mildly impaired relaxation. Per daughter Pt. did not have any fevers at home and denied any other acute complaints however was using OTC NSAIDs to treat joint and back pain. - Current Medication List Current Medications: Active Medications Albuterol/Ipratropium (Duoneb -) 1 amp NEB RQID [facility] Last Admin: 01/31/19 07:25 Dose: 1 amp Atorvastatin Calcium (Lipitor -) 40 mg PO HS [facility] Last Admin: 01/30/19 21:36 Dose: 40 mg Budesonide/Formoterol Fumarate (Symbicort 160/4.5mcg -) 2 puff IH BID [facility] Last Admin: 01/30/19 21:36 Dose: 2 puff Furosemide (Lasix Injection -) 40 mg IVPUSH BID@0600,1400 [facility] Last Admin: 01/31/19 06:40 Dose: 40 mg Gabapentin (Neurontin -) 300 mg PO TID [facility] Last Admin: 01/31/19 06:35 Dose: 300 mg Heparin Sodium (Porcine) (Heparin -) 5,000 unit SQ BID [facility] Last Admin: 01/30/19 21:36 Dose: 5,000 unit Ceftriaxone Sodium 2 gm/ (Dextrose) 100 mls @ 200 mls/hr IVPB DAILY [facility]; Protocol Last Admin: 01/30/19 09:16 Dose: 200 mls/hr Insulin Aspart (Novolog Vial Sliding Scale -) 1 vial SQ ACHS [facility]; Protocol Last Admin: 01/31/19 06:40 Dose: 4 units Nystatin/Triamcinolone Acetonide (Mycolog Ii Cream -) 1 applic TP BID [facility] Last Admin: 01/30/19 21:36 Dose: 1 applic Pantoprazole Sodium (Protonix -) 40 mg PO DAILY [facility] Last Admin: 01/30/19 09:16 Dose: 40 mg - Objective Vital Signs: Vital Signs Temperature 97.9 F 01/31/19 05:45 Pulse Rate 75 01/31/19 07:41 Respiratory Rate 20 01/31/19 05:45 Blood Pressure 140/57 L 01/31/19 05:45 O2 Sat by Pulse Oximetry (%) 95 01/31/19 07:41 Eyes: Yes: WNL, Conjunctiva Clear, EOM Intact HENT: Yes: WNL, Atraumatic, Normocephalic Neck: Yes: WNL, Supple, Trachea Midline Cardiovascular: Yes: WNL, Regular Rate and Rhythm Respiratory: Yes: WNL, Regular, CTA Bilaterally Gastrointestinal: Yes: WNL, Normal Bowel Sounds Genitourinary: Yes: WNL Musculoskeletal: Yes: WNL Extremities: Yes: WNL Edema: Yes Integumentary: Yes: WNL Neurological: Yes: WNL, Alert, Oriented ...Motor Strength: WNL Psychiatric: Yes: WNL Labs: CBC, BMP 01/31/19 05:56 01/31/19 05:56 Problem List - Problems (1) CHF (congestive heart failure) Code(s): I50.9 - HEART FAILURE, UNSPECIFIED Qualifiers: Heart failure type: diastolic Heart failure chronicity: acute on chronic Qualified Code(s): I50.33 - Acute on chronic diastolic (congestive) heart failure (2) COPD exacerbation Code(s): J44.1 - CHRONIC OBSTRUCTIVE PULMONARY DISEASE W (ACUTE) EXACERBATION (3) Elevated troponin Code(s): R79.89 - OTHER SPECIFIED ABNORMAL FINDINGS OF BLOOD CHEMISTRY (4) HLD (hyperlipidemia) Code(s): E78.5 - HYPERLIPIDEMIA, UNSPECIFIED (5) HTN (hypertension) Code(s): I10 - ESSENTIAL (PRIMARY) HYPERTENSION Qualifiers: Hypertension type: renovascular hypertension Qualified Code(s): I15.0 - Renovascular hypertension (6) Hypercapnic respiratory failure Code(s): J96.92 - RESPIRATORY FAILURE, UNSPECIFIED WITH HYPERCAPNIA Qualifiers: Chronicity: unspecified Qualified Code(s): J96.92 - Respiratory failure, unspecified with hypercapnia (7) Leukocytosis Code(s): D72.829 - ELEVATED WHITE BLOOD CELL COUNT, UNSPECIFIED (8) Obesity, morbid, BMI 50 or higher Code(s): E66.01 - MORBID (SEVERE) OBESITY DUE TO EXCESS CALORIES (9) Pneumonia Code(s): J18.9 - PNEUMONIA, UNSPECIFIED ORGANISM Qualifiers: Aspiration pneumonia type: unspecified Laterality: unspecified laterality Lung location: unspecified part of lung (10) Acute on chronic respiratory failure with hypoxia and hypercapnia Code(s): J96.21 - ACUTE AND CHRONIC RESPIRATORY FAILURE WITH HYPOXIA; J96.22 - ACUTE AND CHRONIC RESPIRATORY FAILURE WITH HYPERCAPNIA (11) CHF exacerbation Code(s): I50.9 - HEART FAILURE, UNSPECIFIED Qualifiers: Heart failure type: unspecified Qualified Code(s): I50.9 - Heart failure, unspecified (12) Diastolic CHF Code(s): I50.30 - UNSPECIFIED DIASTOLIC (CONGESTIVE) HEART FAILURE (13) NSTEMI (non-ST elevated myocardial infarction) Code(s): I21.4 - NON-ST ELEVATION (NSTEMI) MYOCARDIAL INFARCTION (14) RSV (acute bronchiolitis due to respiratory syncytial virus) Code(s): J21.0 - ACUTE BRONCHIOLITIS DUE TO RESPIRATORY SYNCYTIAL VIRUS (15) Respiratory failure Code(s): J96.90 - RESPIRATORY FAILURE, UNSP, UNSP W HYPOXIA OR HYPERCAPNIA Qualifiers: Chronicity: unspecified Respiratory failure complication: hypoxia and hypercapnia Qualified Code(s): J96.91 - Respiratory failure, unspecified with hypoxia; J96.92 - Respiratory failure, unspecified with hypercapnia (16) Diabetes Code(s): E11.9 - TYPE 2 DIABETES MELLITUS WITHOUT COMPLICATIONS Assessment/Plan Problems (1) COPD exacerbation Assessment/Plan: Intubated; plans for extubation today. O2, bronchodilators, steroids per pumonologist. Code(s): J44.1 - CHRONIC OBSTRUCTIVE PULMONARY DISEASE W (ACUTE) EXACERBATION (2) HLD (hyperlipidemia) Assessment/Plan: on atorvastatin at home; elevated LDL. Code(s): E78.5 - HYPERLIPIDEMIA, UNSPECIFIED (3) HTN (hypertension) Assessment/Plan: On metoprolol, losartan as outpatient. Code(s): I10 - ESSENTIAL (PRIMARY) HYPERTENSION Qualifiers: Hypertension type: renovascular hypertension Qualified Code(s): I15.0 - Renovascular hypertension (4) Hypercapnic respiratory failure Assessment/Plan: extubated. F/u bronchodilators, antibiotics, O2, and steroids with mail sorter. Code(s): J96.92 - RESPIRATORY FAILURE, UNSPECIFIED WITH HYPERCAPNIA Qualifiers: Chronicity: unspecified Qualified Code(s): J96.92 - Respiratory failure, unspecified with hypercapnia (5) Obesity, morbid, BMI 50 or higher Assessment/Plan: The imperative need to modify diet and decrease weight was discussed with pt. Dietary/diabetic consult would be of benefit. Code(s): E66.01 - MORBID (SEVERE) OBESITY DUE TO EXCESS CALORIES (6) Diastolic CHF Code(s): I50.30 - UNSPECIFIED DIASTOLIC (CONGESTIVE) HEART FAILURE (7) Diabetes Code(s): E11.9 - TYPE 2 DIABETES MELLITUS WITHOUT COMPLICATIONS (8) [place] cardiac risk >20% in next 10 years Assessment/Plan: Pt had stress MIBI 03/2018 that showed no ischemia; however, transient ischemic dilatation score was borderline elevated, which may be indicitive of underlying CAD. ECHO: normal LVEF; abnormal diastolic compliance; borderline RVE; mild MR; trace TR. Once stable, will have further coronary artery evaluation (CTA or coronary angiogram) as an outpatient. Aggressive lipid-lowering; diet modification; weight loss; BP and glucose control. Code(s): Z91.89 - [facility] PERSONAL RISK FACTORS, NOT ELSEWHERE CLASSIFIED (9) Acute on chronic diastolic (congestive) heart failure Assessment/Plan: Now extubated. On metoprolol (and has been on losartan as outpatient). F/u BUN/Cr, electrolytes, daily weight, and Is and Os. See "[place] Risk" regarding further coronary artery evaluation. Code(s): I50.33 - ACUTE ON CHRONIC DIASTOLIC (CONGESTIVE) HEART FAILURE
--- NOTE | 2019-01-31 09:12 | PN ---
Progress Note, Physician - Current Medication List Current Medications: Active Medications Albuterol/Ipratropium (Duoneb -) 1 amp NEB RQID [facility] Last Admin: 01/31/19 07:25 Dose: 1 amp Atorvastatin Calcium (Lipitor -) 40 mg PO HS [facility] Last Admin: 01/30/19 21:36 Dose: 40 mg Budesonide/Formoterol Fumarate (Symbicort 160/4.5mcg -) 2 puff IH BID [facility] Last Admin: 01/30/19 21:36 Dose: 2 puff Furosemide (Lasix Injection -) 40 mg IVPUSH BID@0600,1400 [facility] Last Admin: 01/31/19 06:40 Dose: 40 mg Gabapentin (Neurontin -) 300 mg PO TID [facility] Last Admin: 01/31/19 06:35 Dose: 300 mg Heparin Sodium (Porcine) (Heparin -) 5,000 unit SQ BID [facility] Last Admin: 01/30/19 21:36 Dose: 5,000 unit Ceftriaxone Sodium 2 gm/ (Dextrose) 100 mls @ 200 mls/hr IVPB DAILY [facility]; Protocol Last Admin: 01/30/19 09:16 Dose: 200 mls/hr Insulin Aspart (Novolog Vial Sliding Scale -) 1 vial SQ ACHS [facility]; Protocol Last Admin: 01/31/19 06:40 Dose: 4 units Nystatin/Triamcinolone Acetonide (Mycolog Ii Cream -) 1 applic TP BID [facility] Last Admin: 01/30/19 21:36 Dose: 1 applic Pantoprazole Sodium (Protonix -) 40 mg PO DAILY [facility] Last Admin: 01/30/19 09:16 Dose: 40 mg - Objective Vital Signs: Vital Signs Temperature 97.9 F 01/31/19 05:45 Pulse Rate 75 01/31/19 07:41 Respiratory Rate 20 01/31/19 05:45 Blood Pressure 140/57 L 01/31/19 05:45 O2 Sat by Pulse Oximetry (%) 95 01/31/19 07:41 Cardiovascular: Yes: S1, S2 Respiratory: Yes: On Nasal O2, Rales Gastrointestinal: Yes: Normal Bowel Sounds, Soft Labs: CBC, BMP 01/31/19 05:56 01/31/19 05:56 Assessment/Plan - Problems (1) COPD exacerbation Assessment/Plan: -Pulm on board -O2 via NC -Bipap HS -bronchodilators -keep SpO2 >90% -Symbicort Code(s): J44.1 - CHRONIC OBSTRUCTIVE PULMONARY DISEASE W (ACUTE) EXACERBATION (2) Acute on chronic respiratory failure with hypoxia and hypercapnia Assessment/Plan: -Pulm on board -bronchodilators -O2 via NC -Bipap HS -keep SpO2 >90% -ABGs -Legionella neg, Influenza neg, RSV neg, Sputum culture neg Code(s): J96.21 - ACUTE AND CHRONIC RESPIRATORY FAILURE WITH HYPOXIA; J96.22 - ACUTE AND CHRONIC RESPIRATORY FAILURE WITH HYPERCAPNIA (3) CHF exacerbation Assessment/Plan: -Cardiology on board -tele monitoring -BNP 6753~4268 -daily weights -strict I&Os -Furosemide IV Code(s): I50.9 - HEART FAILURE, UNSPECIFIED Qualifiers: Heart failure type: unspecified Qualified Code(s): I50.9 - Heart failure, unspecified (4) Diabetes Assessment/Plan: -[facility] ACHS -[facility] -HgA1c 7.5% Code(s): E11.9 - TYPE 2 DIABETES MELLITUS WITHOUT COMPLICATIONS (5) HTN (hypertension) Assessment/Plan: -low Na/dibetic diet -monitor BP Code(s): I10 - ESSENTIAL (PRIMARY) HYPERTENSION Qualifiers: Hypertension type: renovascular hypertension Qualified Code(s): I15.0 - Renovascular hypertension (6) HLD (hyperlipidemia) Assessment/Plan: -Atorvastatin Code(s): E78.5 - HYPERLIPIDEMIA, UNSPECIFIED (7) Leukocytosis Assessment/Plan: -WBC 9.9 -afebrile -ID on board -Ceftriaxone -LA ordered -BC neg -UC neg -CXR shows no pneumothorax, pleural effusion, no vascular congestive changes, no pulmonary infiltrates Code(s): D72.829 - ELEVATED WHITE BLOOD CELL COUNT, UNSPECIFIED (8) Elevated troponin Assessment/Plan: -troponin 0.42,~0.22 -Tele monitoring -Cardiology on board Code(s): R79.89 - OTHER SPECIFIED ABNORMAL FINDINGS OF BLOOD CHEMISTRY
[2019-01-31] MEDS ORDERED: DEXTROSE 5%-WATER 100 ML IVPB ONE (10:05)
[2019-01-31] MEDS ORDERED: PT OWN MED DRAWER 7, Y5N ONE (10:05)
[2019-01-31] MEDS: NYSTATIN/TRIAMCINOLONE TOPICAL CREAM 15 GM TUBE TP SCH ×2 (10:24→21:28)
[2019-01-31] MEDS: HEPARIN NA (PORCINE) 5,000 UNITS/ML 1ML VIAL SQ SCH ×2 (10:24→21:27)
[2019-01-31] MEDS: CEFTRIAXONE 2 GM in DEXTROSE 5%-WATER 100 ML IVPB SCH (10:24)
[2019-01-31] MEDS: PANTOPRAZOLE 40 MG TABLET (FP) PO SCH (10:24)
[2019-01-31] MEDS: BUDESONIDE/FORMETEROL FUMARATE 160/4.5 mcg INHALER IH SCH ×2 (10:34→21:28)
--- NOTE | 2019-01-31 11:11 | PN ---
Progress Note (short form) - Note Progress Note: Awake and alert in NAD on 3 L NC O2. Used NIPPV support until about 4:30AM. Denies CP or SOB. Intake & Output 01/28/19 01/29/19 01/30/19 01/31/19 23:59 23:59 23:59 23:59 Intake Total 240 940 240 Output Total 2650 3800 Balance -2410 -2860 240 Weight 229 lb 9.6 oz Last Vital Signs Temp Pulse Resp BP Pulse Ox 97.9 F 75 20 140/57 L 95 01/31/19 05:45 01/31/19 07:41 01/31/19 05:45 01/31/19 05:45 01/31/19 07:41 Active Medications Albuterol/Ipratropium (Duoneb -) 1 amp NEB RQID [facility] Last Admin: 01/31/19 11:02 Dose: 1 amp Atorvastatin Calcium (Lipitor -) 40 mg PO HS [facility] Last Admin: 01/30/19 21:36 Dose: 40 mg Budesonide/Formoterol Fumarate (Symbicort 160/4.5mcg -) 2 puff IH BID [facility] Last Admin: 01/31/19 10:34 Dose: 2 puff Furosemide (Lasix Injection -) 40 mg IVPUSH BID@0600,1400 [facility] Last Admin: 01/31/19 06:40 Dose: 40 mg Gabapentin (Neurontin -) 300 mg PO TID [facility] Last Admin: 01/31/19 06:35 Dose: 300 mg Heparin Sodium (Porcine) (Heparin -) 5,000 unit SQ BID [facility] Last Admin: 01/31/19 10:24 Dose: 5,000 unit Ceftriaxone Sodium 2 gm/ (Dextrose) 100 mls @ 200 mls/hr IVPB DAILY [facility]; Protocol Last Admin: 01/31/19 10:24 Dose: 200 mls/hr Insulin Aspart (Novolog Vial Sliding Scale -) 1 vial SQ ACHS [facility]; Protocol Last Admin: 01/31/19 06:40 Dose: 4 units Nystatin/Triamcinolone Acetonide (Mycolog Ii Cream -) 1 applic TP BID [facility] Last Admin: 01/31/19 10:24 Dose: 1 applic Pantoprazole Sodium (Protonix -) 40 mg PO DAILY [facility] Last Admin: 01/31/19 10:24 Dose: 40 mg Gen: Awake and alert on NC O2, NAD Heart: RRR Lung: distant breath sounds Abd: soft, nontender, (+) BS Ext: decreasing edema Laboratory Results - last 24 hr 01/30/19 01/30/19 01/31/19 17:05 21:31 05:56 WBC 11.7 H RBC 5.20 Hgb 14.1 Hct 44.1 MCV 84.9 MCH 27.1 MCHC 31.9 L RDW 15.7 H Plt Count 206 MPV 9.7 Sodium Potassium Chloride Carbon Dioxide Anion Gap BUN Creatinine Est GFR (CKD-EPI)AfAm Est GFR (CKD-EPI)NonAf POC Glucometer 186 241 Random Glucose Calcium Total Bilirubin AST ALT Alkaline Phosphatase Total Protein Albumin 01/31/19 01/31/19 05:56 06:15 WBC RBC Hgb Hct MCV MCH MCHC RDW Plt Count MPV Sodium 131 L Potassium 5.5 H Chloride 85 L Carbon Dioxide 41 H Anion Gap 5 L BUN 19.7 H Creatinine 0.8 Est GFR (CKD-EPI)AfAm 89.04 Est GFR (CKD-EPI)NonAf 76.83 POC Glucometer 203 Random Glucose 182 H Calcium 8.1 L Total Bilirubin 1.3 H AST 39 H ALT 28 Alkaline Phosphatase 78 Total Protein 7.3 Albumin 2.6 L ASSESSMENT AND PLAN: Acute on Chronic Hypoxic and Hypercapneic Respiratory Failure Acute on Chronic Diastolic Heart Failure Acute Kidney Injury Resolving Acute COPD Exacerbation Suspected CAP HTN DM Hyperlipidemia Obstructive Sleep Apnea - Lasix - Monitor urine output, creatinine - Daily weights - ABX per ID - Monitor off systemic steroids - inhaled bronchodilators - VTE prophylaxis - NIPPV support QHS and PRN - Symbicort BID - Cardiac Telemetry monitoring Dr Paige
--- NOTE | 2019-01-31 11:49 | PN ---
Progress Note, Physician History of Present Illness: Pt seen and examined at bedside. She is awake and appears comfortable. She feels that her breathing is improved. - Current Medication List Current Medications: Active Medications Albuterol/Ipratropium (Duoneb -) 1 amp NEB RQID [facility] Last Admin: 01/31/19 11:02 Dose: 1 amp Atorvastatin Calcium (Lipitor -) 40 mg PO HS [facility] Last Admin: 01/30/19 21:36 Dose: 40 mg Budesonide/Formoterol Fumarate (Symbicort 160/4.5mcg -) 2 puff IH BID [facility] Last Admin: 01/31/19 10:34 Dose: 2 puff Furosemide (Lasix Injection -) 40 mg IVPUSH BID@0600,1400 [facility] Last Admin: 01/31/19 06:40 Dose: 40 mg Gabapentin (Neurontin -) 300 mg PO TID [facility] Last Admin: 01/31/19 06:35 Dose: 300 mg Heparin Sodium (Porcine) (Heparin -) 5,000 unit SQ BID [facility] Last Admin: 01/31/19 10:24 Dose: 5,000 unit Ceftriaxone Sodium 2 gm/ (Dextrose) 100 mls @ 200 mls/hr IVPB DAILY [facility]; Protocol Last Admin: 01/31/19 10:24 Dose: 200 mls/hr Insulin Aspart (Novolog Vial Sliding Scale -) 1 vial SQ ACHS [facility]; Protocol Last Admin: 01/31/19 06:40 Dose: 4 units Nystatin/Triamcinolone Acetonide (Mycolog Ii Cream -) 1 applic TP BID [facility] Last Admin: 01/31/19 10:24 Dose: 1 applic Pantoprazole Sodium (Protonix -) 40 mg PO DAILY [facility] Last Admin: 01/31/19 10:24 Dose: 40 mg - Objective Vital Signs: Vital Signs Temperature 97.5 F L 01/31/19 10:00 Pulse Rate 92 H 01/31/19 10:00 Respiratory Rate 20 01/31/19 10:00 Blood Pressure 146/68 01/31/19 10:00 O2 Sat by Pulse Oximetry (%) 94 L 01/31/19 10:00 Constitutional: Yes: Calm Eyes: Yes: Conjunctiva Clear HENT: Yes: Atraumatic Cardiovascular: Yes: S1, S2 Respiratory: Yes: On Nasal O2 Gastrointestinal: Yes: Soft, Abdomen, Obese Genitourinary: Yes: WNL Edema: LLE: Trace, RLE: Trace Neurological: Yes: Oriented Psychiatric: Yes: Oriented Labs: CBC, BMP 01/31/19 05:56 01/31/19 05:56 Assessment/Plan Current Medications Generic Name Dose Route Start Last Admin Trade Name Brad PRN Reason Stop Dose Admin Albuterol/Ipratropium 1 amp 01/29/19 20:00 01/31/19 11:02 Duoneb - NEB 1 amp RQID [facility] Administration Atorvastatin Calcium 40 mg 01/29/19 22:00 01/30/19 21:36 Lipitor - PO 40 mg HS [facility] Administration Budesonide/Formoterol Fumarate 2 puff 01/29/19 10:00 01/31/19 10:34 Symbicort 160/4.5mcg - IH 2 puff BID [facility] Administration Furosemide 40 mg 01/30/19 06:00 01/31/19 06:40 Lasix Injection - IVPUSH 40 mg BID@0600,1400 [facility] Administration Gabapentin 300 mg 01/29/19 14:00 01/31/19 06:35 Neurontin - PO 300 mg TID [facility] Administration Heparin Sodium (Porcine) 5,000 unit 01/29/19 22:00 01/31/19 10:24 Heparin - SQ 5,000 unit BID [facility] Administration Ceftriaxone Sodium 2 gm/ 100 mls @ 200 mls/hr 01/29/19 13:15 01/31/19 10:24 Dextrose IVPB 200 mls/hr DAILY [facility] Administration Protocol Insulin Aspart 1 vial 01/29/19 22:00 01/31/19 06:40 Novolog Vial Sliding Scale - SQ 4 units ACHS [facility] Administration Protocol Nystatin/Triamcinolone Acetonide 1 applic 01/29/19 10:00 01/31/19 10:24 Mycolog Ii Cream - TP 1 applic BID [facility] Administration Pantoprazole Sodium 40 mg 01/29/19 10:00 01/31/19 10:24 Protonix - PO 40 mg DAILY [facility] Administration Impression 1. JUANCARLOS 2. CHF diastolic 3. COPD on home o2 4. obesity 5. resp acidosis with met alkalosis 6. hyperkalemia Plan - cont lasix - will give a dose of lokelma - low potassium diet - follow repeat labs - volume status is improving
[2019-01-31] MEDS ORDERED: INSULIN SLIDING SCALE (NOVOLOG) 1 VIAL SQ ONE (12:10)
[2019-01-31 12:47] LABS: BLOOD UREA NITROGEN 19.2 mg/dL (7-18); CALCIUM 8.7 mg/dL (8.5-10.1); CREATININE 0.8 mg/dL (0.55-1.3); POTASSIUM 3.6 mmol/L (3.5-5.1)
[2019-01-31] MEDS: ATORVASTATIN CA 40 MG TABLET (FP) PO SCH (21:27)
[2019-02-01] MEDS: INSULIN SLIDING SCALE (NOVOLOG) 1 VIAL SQ SCH ×4 (06:20→21:17)
[2019-02-01] MEDS: FUROSEMIDE 40 MG/4 ML INJECTABLE VIAL IVPUSH SCH ×2 (06:21→13:07)
[2019-02-01] MEDS: GABAPENTIN 300 MG CAPSULE (FP) PO SCH ×3 (06:21→21:16)
[2019-02-01 07:53] LABS: BASO % 0.4 % (0-2.0); EOS % 3.5 % (0-4.5); HEMATOCRIT 44.5 % (32.4-45.2); HEMOGLOBIN 14.2 GM/dL (10.7-15.3); LYMPH % 9.3 % (8-40); MCH 26.9 pg (25.7-33.7); MCHC 31.9 g/dl (32.0-36.0); MEAN CELL VOLUME 84.5 fl (80-96); MEAN PLT VOLUME 9.7 fl (7.5-11.1); MONO % 7.2 % (3.8-10.2); NEUT % 79.6 % (42.8-82.8); PLATELET COUNT 206 K/MM3 (134-434); RBC 5.26 M/mm3 (3.60-5.2); RDW 15.4 % (11.6-15.6); WHITE BLOOD COUNT 11.2 K/mm3 (4.0-10.0)
[2019-02-01 08:06] LABS: BLOOD UREA NITROGEN 19.3 mg/dL (7-18); CALCIUM 8.2 mg/dL (8.5-10.1); CREATININE 0.6 mg/dL (0.55-1.3); MAGNESIUM 1.7 mg/dL (1.8-2.4)
[2019-02-01] MEDS: ALBUTEROL SO4 2.5/IPRATROPIUM 0.5 INH SOL 3 ML VIAL.NEB. NEB SCH ×4 (08:26→20:25)
[2019-02-01] MEDS ORDERED: POTASSIUM CHLORIDE TABS 10 MEQ TABLET.ER (FP) PO ONE (08:53)
--- NOTE | 2019-02-01 08:56 | PN ---
Progress Note, Physician - Current Medication List Current Medications: Active Medications Albuterol/Ipratropium (Duoneb -) 1 amp NEB RQID [facility] Last Admin: 01/31/19 20:35 Dose: 1 amp Aspirin (Asa -) 81 mg PO DAILY [facility] Atorvastatin Calcium (Lipitor -) 40 mg PO HS [facility] Last Admin: 01/31/19 21:27 Dose: 40 mg Budesonide/Formoterol Fumarate (Symbicort 160/4.5mcg -) 2 puff IH BID [facility] Last Admin: 01/31/19 21:28 Dose: 2 puff Furosemide (Lasix Injection -) 40 mg IVPUSH BID@0600,1400 [facility] Last Admin: 02/01/19 06:21 Dose: 40 mg Gabapentin (Neurontin -) 300 mg PO TID [facility] Last Admin: 02/01/19 06:21 Dose: 300 mg Heparin Sodium (Porcine) (Heparin -) 5,000 unit SQ BID [facility] Last Admin: 01/31/19 21:27 Dose: 5,000 unit Ceftriaxone Sodium 2 gm/ (Dextrose) 100 mls @ 200 mls/hr IVPB DAILY [facility]; Protocol Last Admin: 01/31/19 10:24 Dose: 200 mls/hr Potassium Chloride (Potassium Chloride 10 Meq Premix Ivpb -) 10 meq in 100 mls @ 100 mls/hr IVPB Q60M [facility] Stop: 02/01/19 09:59 Insulin Aspart (Novolog Vial Sliding Scale -) 1 vial SQ ACHS [facility]; Protocol Last Admin: 02/01/19 06:20 Dose: 2 units Nystatin/Triamcinolone Acetonide (Mycolog Ii Cream -) 1 applic TP BID [facility] Last Admin: 01/31/19 21:28 Dose: 1 applic Pantoprazole Sodium (Protonix -) 40 mg PO DAILY [facility] Last Admin: 01/31/19 10:24 Dose: 40 mg Potassium Chloride (K-Dur -) 20 meq PO BID [facility] Potassium Chloride (K-Dur -) 20 meq PO ONCE ONE Stop: 02/01/19 08:54 - Objective Vital Signs: Vital Signs Temperature 98.1 F 02/01/19 06:00 Pulse Rate 80 02/01/19 06:00 Respiratory Rate 20 02/01/19 06:00 Blood Pressure 115/60 02/01/19 06:00 O2 Sat by Pulse Oximetry (%) 93 L 01/31/19 21:00 Cardiovascular: Yes: S1, S2 Respiratory: Yes: On Nasal O2, Rhonchi Gastrointestinal: Yes: Normal Bowel Sounds, Soft Labs: CBC, BMP 02/01/19 06:50 02/01/19 06:50 Assessment/Plan - Problems (1) COPD exacerbation Assessment/Plan: -Pulm on board -O2 via NC -Bipap HS -bronchodilators -keep SpO2 >90% -Symbicort Code(s): J44.1 - CHRONIC OBSTRUCTIVE PULMONARY DISEASE W (ACUTE) EXACERBATION (2) Acute on chronic respiratory failure with hypoxia and hypercapnia Assessment/Plan: -Pulm on board -bronchodilators -O2 via NC -Bipap HS -keep SpO2 >90% -ABGs -Legionella neg, Influenza neg, RSV neg, Sputum culture neg Code(s): J96.21 - ACUTE AND CHRONIC RESPIRATORY FAILURE WITH HYPOXIA; J96.22 - ACUTE AND CHRONIC RESPIRATORY FAILURE WITH HYPERCAPNIA (3) CHF exacerbation Assessment/Plan: -Cardiology on board -tele monitoring -BNP 6753~[id number] -daily weights -strict I&Os -Furosemide IV bid -Replace k Code(s): I50.9 - HEART FAILURE, UNSPECIFIED Qualifiers: Heart failure type: unspecified Qualified Code(s): I50.9 - Heart failure, unspecified (4) Diabetes Assessment/Plan: -[facility] -HgA1c 7.5% Code(s): E11.9 - TYPE 2 DIABETES MELLITUS WITHOUT COMPLICATIONS (5) HTN (hypertension) Assessment/Plan: -low Na/dibetic diet -monitor BP Code(s): I10 - ESSENTIAL (PRIMARY) HYPERTENSION Qualifiers: Hypertension type: renovascular hypertension Qualified Code(s): I15.0 - Renovascular hypertension (6) HLD (hyperlipidemia) Assessment/Plan: -Atorvastatin Code(s): E78.5 - HYPERLIPIDEMIA, UNSPECIFIED (7) Leukocytosis Assessment/Plan: -WBC 9.9 -afebrile -ID on board -Ceftriaxone -LA ordered -BC neg -UC neg -CXR shows no pneumothorax, pleural effusion, no vascular congestive changes, no pulmonary infiltrates Code(s): D72.829 - ELEVATED WHITE BLOOD CELL COUNT, UNSPECIFIED (8) Elevated troponin Assessment/Plan: -troponin 0.42,~0.22 -Tele monitoring -Cardiology on board Code(s): R79.89 - OTHER SPECIFIED ABNORMAL FINDINGS OF BLOOD CHEMISTRY
[2019-02-01] MEDS ORDERED: MAGNESIUM SULF 50% (8.12 MEQ/2 ML-1 GM VIAL) IVPB ONE ×2 (08:57→17:15)
[2019-02-01] MEDS ORDERED: KCL 10 MEQ IVPB 10 MEQ/100 ML INFUS.BAG IVPB SCH (09:00)
[2019-02-01] MEDS ORDERED: DEXTROSE 5%-WATER 100 ML IVPB ONE (09:56)
[2019-02-01] MEDS: PANTOPRAZOLE 40 MG TABLET (FP) PO SCH (10:05)
[2019-02-01] MEDS: HEPARIN NA (PORCINE) 5,000 UNITS/ML 1ML VIAL SQ SCH ×2 (10:05→21:16)
[2019-02-01] MEDS: ASPIRIN 81 MG CHEWABLE TABLETS PO SCH (10:05)
[2019-02-01] MEDS: BUDESONIDE/FORMETEROL FUMARATE 160/4.5 mcg INHALER IH SCH ×2 (10:20→21:17)
[2019-02-01] MEDS: NYSTATIN/TRIAMCINOLONE TOPICAL CREAM 15 GM TUBE TP SCH ×2 (10:20→21:18)
[2019-02-01] MEDS: POLYETHYLENE GLYCOL 3350 119 GM BTL PO SCH ×2 (10:21→21:17)
--- NOTE | 2019-02-01 11:46 | PN ---
Progress Note, Physician History of Present Illness: Pt seen and examined at bedside. She is awake and alert. She gets shortness of breath with ambulation. - Current Medication List Current Medications: Active Medications Albuterol/Ipratropium (Duoneb -) 1 amp NEB RQID [facility] Last Admin: 01/31/19 20:35 Dose: 1 amp Aspirin (Asa -) 81 mg PO DAILY [facility] Last Admin: 02/01/19 10:05 Dose: 81 mg Atorvastatin Calcium (Lipitor -) 40 mg PO HS [facility] Last Admin: 01/31/19 21:27 Dose: 40 mg Budesonide/Formoterol Fumarate (Symbicort 160/4.5mcg -) 2 puff IH BID [facility] Last Admin: 02/01/19 10:20 Dose: 2 puff Furosemide (Lasix Injection -) 40 mg IVPUSH BID@0600,1400 [facility] Last Admin: 02/01/19 06:21 Dose: 40 mg Gabapentin (Neurontin -) 300 mg PO TID [facility] Last Admin: 02/01/19 06:21 Dose: 300 mg Heparin Sodium (Porcine) (Heparin -) 5,000 unit SQ BID [facility] Last Admin: 02/01/19 10:05 Dose: 5,000 unit Ceftriaxone Sodium 2 gm/ (Dextrose) 100 mls @ 200 mls/hr IVPB DAILY [facility]; Protocol Last Admin: 01/31/19 10:24 Dose: 200 mls/hr Insulin Aspart (Novolog Vial Sliding Scale -) 1 vial SQ ACHS [facility]; Protocol Last Admin: 02/01/19 11:20 Dose: 6 units Nystatin/Triamcinolone Acetonide (Mycolog Ii Cream -) 1 applic TP BID [facility] Last Admin: 02/01/19 10:20 Dose: 1 applic Pantoprazole Sodium (Protonix -) 40 mg PO DAILY [facility] Last Admin: 02/01/19 10:05 Dose: 40 mg Polyethylene Glycol (Miralax (For Daily Use) -) 17 gm PO BID [facility] Last Admin: 02/01/19 10:21 Dose: 17 gm Potassium Chloride (K-Dur -) 20 meq PO BID [facility] - Objective Vital Signs: Vital Signs Temperature 98.1 F 02/01/19 10:00 Pulse Rate 95 H 02/01/19 10:00 Respiratory Rate 20 02/01/19 10:00 Blood Pressure 139/69 02/01/19 10:00 O2 Sat by Pulse Oximetry (%) 93 L 01/31/19 21:00 Constitutional: Yes: Calm Eyes: Yes: Conjunctiva Clear Cardiovascular: Yes: S1, S2 Respiratory: Yes: On Nasal O2, Wheezes Gastrointestinal: Yes: Soft, Abdomen, Obese Genitourinary: Yes: WNL Edema: Yes Edema: LLE: 2+, RLE: 2+ Integumentary: Yes: Venous Stasis Changes Neurological: Yes: Oriented Psychiatric: Yes: Oriented Labs: CBC, BMP 02/01/19 06:50 02/01/19 06:50 Problem List - Problems (1) Acute on chronic diastolic (congestive) heart failure Code(s): I50.33 - ACUTE ON CHRONIC DIASTOLIC (CONGESTIVE) HEART FAILURE (2) CHF (congestive heart failure) Code(s): I50.9 - HEART FAILURE, UNSPECIFIED Qualifiers: Heart failure type: diastolic Heart failure chronicity: acute on chronic Qualified Code(s): I50.33 - Acute on chronic diastolic (congestive) heart failure Assessment/Plan Current Medications Generic Name Dose Route Start Last Admin Trade Name Freq PRN Reason Stop Dose Admin Albuterol/Ipratropium 1 amp 01/29/19 20:00 01/31/19 20:35 Duoneb - NEB 1 amp RQID [facility] Administration Aspirin 81 mg 02/01/19 10:00 02/01/19 10:05 Asa - PO 81 mg DAILY [facility] Administration Atorvastatin Calcium 40 mg 01/29/19 22:00 01/31/19 21:27 Lipitor - PO 40 mg HS [facility] Administration Budesonide/Formoterol Fumarate 2 puff 01/29/19 10:00 02/01/19 10:20 Symbicort 160/4.5mcg - IH 2 puff BID [facility] Administration Furosemide 40 mg 01/30/19 06:00 02/01/19 06:21 Lasix Injection - IVPUSH 40 mg BID@0600,1400 [facility] Administration Gabapentin 300 mg 01/29/19 14:00 02/01/19 06:21 Neurontin - PO 300 mg TID [facility] Administration Heparin Sodium (Porcine) 5,000 unit 01/29/19 22:00 02/01/19 10:05 Heparin - SQ 5,000 unit BID [facility] Administration Ceftriaxone Sodium 2 gm/ 100 mls @ 200 mls/hr 01/29/19 13:15 01/31/19 10:24 Dextrose IVPB 200 mls/hr DAILY [facility] Administration Protocol Insulin Aspart 1 vial 01/29/19 22:00 02/01/19 11:20 Novolog Vial Sliding Scale - SQ 6 units ACHS [facility] Administration Protocol Magnesium Oxide 400 mg 02/01/19 11:45 Mag-Ox - PO DAILY [facility] Nystatin/Triamcinolone Acetonide 1 applic 01/29/19 10:00 02/01/19 10:20 Mycolog Ii Cream - TP 1 applic BID [facility] Administration Pantoprazole Sodium 40 mg 01/29/19 10:00 02/01/19 10:05 Protonix - PO 40 mg DAILY [facility] Administration Polyethylene Glycol 17 gm 02/01/19 10:00 02/01/19 10:21 Miralax (For Daily Use) - PO 17 gm BID [facility] Administration Potassium Chloride 20 meq 02/01/19 22:00 K-Dur - PO BID [facility] Impression 1. JUANCARLOS 2. CHF diastolic 3. COPD on home o2 4. obesity 5. resp acidosis with met alkalosis 6. hyperkalemia Plan - replace potassium - replace mag - cont lasix - monitor volume status - volume status is improving
[2019-02-01] MEDS: MAGNESIUM OXIDE 400 MG TABLET (FP) PO SCH (11:51)
--- NOTE | 2019-02-01 12:18 | PN ---
Progress Note, Physician History of Present Illness: PULMONARY ALERT,COMFORTABLE ON NASAL CANNULA,SOB IMPROVING, - Current Medication List Current Medications: Active Medications Albuterol/Ipratropium (Duoneb -) 1 amp NEB RQID [facility] Last Admin: 01/31/19 20:35 Dose: 1 amp Aspirin (Asa -) 81 mg PO DAILY [facility] Last Admin: 02/01/19 10:05 Dose: 81 mg Atorvastatin Calcium (Lipitor -) 40 mg PO HS [facility] Last Admin: 01/31/19 21:27 Dose: 40 mg Budesonide/Formoterol Fumarate (Symbicort 160/4.5mcg -) 2 puff IH BID [facility] Last Admin: 02/01/19 10:20 Dose: 2 puff Furosemide (Lasix Injection -) 40 mg IVPUSH BID@0600,1400 [facility] Last Admin: 02/01/19 06:21 Dose: 40 mg Gabapentin (Neurontin -) 300 mg PO TID [facility] Last Admin: 02/01/19 06:21 Dose: 300 mg Heparin Sodium (Porcine) (Heparin -) 5,000 unit SQ BID [facility] Last Admin: 02/01/19 10:05 Dose: 5,000 unit Ceftriaxone Sodium 2 gm/ (Dextrose) 100 mls @ 200 mls/hr IVPB DAILY [facility]; Protocol Last Admin: 01/31/19 10:24 Dose: 200 mls/hr Insulin Aspart (Novolog Vial Sliding Scale -) 1 vial SQ ACHS [facility]; Protocol Last Admin: 02/01/19 11:20 Dose: 6 units Magnesium Oxide (Mag-Ox -) 400 mg PO DAILY [facility] Last Admin: 02/01/19 11:51 Dose: 400 mg Nystatin/Triamcinolone Acetonide (Mycolog Ii Cream -) 1 applic TP BID [facility] Last Admin: 02/01/19 10:20 Dose: 1 applic Pantoprazole Sodium (Protonix -) 40 mg PO DAILY [facility] Last Admin: 02/01/19 10:05 Dose: 40 mg Polyethylene Glycol (Miralax (For Daily Use) -) 17 gm PO BID [facility] Last Admin: 02/01/19 10:21 Dose: 17 gm Potassium Chloride (K-Dur -) 20 meq PO BID [facility] - Objective Vital Signs: Vital Signs Temperature 98.1 F 02/01/19 10:00 Pulse Rate 95 H 02/01/19 10:00 Respiratory Rate 20 02/01/19 10:00 Blood Pressure 139/69 02/01/19 10:00 O2 Sat by Pulse Oximetry (%) 93 L 01/31/19 21:00 Constitutional: Yes: Calm, Obese Eyes: Yes: WNL HENT: Yes: WNL Neck: Yes: WNL Cardiovascular: Yes: Regular Rate and Rhythm, S1, S2 Respiratory: Yes: Diminished, Wheezes (FEW WHEEZES) Gastrointestinal: Yes: Normal Bowel Sounds, Soft Extremities: Yes: WNL Edema: Yes Labs: CBC, BMP 02/01/19 06:50 02/01/19 06:50 Problem List - Problems (1) Acute on chronic diastolic (congestive) heart failure Code(s): I50.33 - ACUTE ON CHRONIC DIASTOLIC (CONGESTIVE) HEART FAILURE (2) CHF (congestive heart failure) Code(s): I50.9 - HEART FAILURE, UNSPECIFIED Qualifiers: Heart failure type: diastolic Heart failure chronicity: acute on chronic Qualified Code(s): I50.33 - Acute on chronic diastolic (congestive) heart failure (3) COPD exacerbation Code(s): J44.1 - CHRONIC OBSTRUCTIVE PULMONARY DISEASE W (ACUTE) EXACERBATION (4) HLD (hyperlipidemia) Code(s): E78.5 - HYPERLIPIDEMIA, UNSPECIFIED (5) HTN (hypertension) Code(s): I10 - ESSENTIAL (PRIMARY) HYPERTENSION Qualifiers: Hypertension type: renovascular hypertension Qualified Code(s): I15.0 - Renovascular hypertension (6) Hypercapnic respiratory failure Code(s): J96.92 - RESPIRATORY FAILURE, UNSPECIFIED WITH HYPERCAPNIA Qualifiers: Chronicity: unspecified Qualified Code(s): J96.92 - Respiratory failure, unspecified with hypercapnia (7) Acute on chronic respiratory failure with hypoxia and hypercapnia Code(s): J96.21 - ACUTE AND CHRONIC RESPIRATORY FAILURE WITH HYPOXIA; J96.22 - ACUTE AND CHRONIC RESPIRATORY FAILURE WITH HYPERCAPNIA (8) Diabetes Code(s): E11.9 - TYPE 2 DIABETES MELLITUS WITHOUT COMPLICATIONS (9) Acute on chronic respiratory failure with hypoxia and hypercapnia Code(s): J96.21 - ACUTE AND CHRONIC RESPIRATORY FAILURE WITH HYPOXIA; J96.22 - ACUTE AND CHRONIC RESPIRATORY FAILURE WITH HYPERCAPNIA Assessment/Plan ASSESSMENT AND PLAN: Acute on Chronic Hypoxic and Hypercapneic Respiratory Failure improving Acute on Chronic Diastolic Heart Failure improving Acute Kidney Injury Resolving Acute COPD Exacerbation Suspected CAP HTN DM Hyperlipidemia Obstructive Sleep Apnea - Lasix - Monitor urine output, creatinine - Daily weights - ABX per ID - inhaled bronchodilators - VTE prophylaxis - NIPPV support QHS and PRN - Symbicort BID - ABG DR GUERERRO
[2019-02-01] MEDS: CEFTRIAXONE 2 GM in DEXTROSE 5%-WATER 100 ML IVPB SCH (12:41)
--- NOTE | 2019-02-01 13:14 | CONSULT ---
Consult Consult Specialty:: PM&R Dr Ramesh for Dr Fields - History of Present Illness History of Present Illness: This is a 68 year old woman with a medical history of morbid obesity, CHF, NSTEMI, HTN, HLD, LEONIDES, COPD on home O2, DMT2, who presented to the ED 01/25/19 with 1 week SOB. BiPAP was started, but she developed AMS requiring intubation with subsequent ICU admission for hypercapnic respiratory failure due to COPD/ CHF exacerbation with preserved EF as well as possible PNA; she was also diagnosed with respiratory acidosis with compensatory metabolic acidosis. Renal was consulted for JUANCARLOS attributed to CHF. Cards was consulted for CHF exacerbation causing elevated troponin. ID was consulted for PNA; influenza was negative. She was seen by PT, and on 01/31/19 she was Minimum Assist in Transfers, and ambulated 10 feet Minimum Assist with Rolling Walker. Physiatry is being consulted for further recommendations. - Past Medical History Cardio/Vascular: Yes: CHF, HTN, Hyperlipdemia, [place] Pulmonary: Yes: COPD, O2 Dependent, Sleep Apnea ...: No Endocrine: Yes: Diabetes Mellitus - Alcohol/Substance Use Hx Alcohol Use: No - Smoking History Smoking history: Former smoker Have you smoked in the past 12 months: No - Social History Usual Living Arrangement: Alone (in apartment with 5 steps x3 to enter, ambulated with RW/ SC) History of Recent Travel: No Home Medications - Allergies Allergies/Adverse Reactions: Allergies Allergy/AdvReac Type Severity Reaction Status Date / Time No Known Allergies Allergy Verified 01/25/19 11:53 - Home Medications Home Medications: Ambulatory Orders Albuterol Sulfate Inhaler - [Ventolin HFA Inhaler -] 2 inh PO Q4H PRN 03/27/18 Losartan Potassium 25 mg PO DAILY 03/27/18 metFORMIN HCL [Metformin HCl] 500 mg PO HS 03/27/18 Albuterol 0.083% Nebulizer Gisselle [Ventolin 0.083% Nebulizer Soln -] 1 neb NEB Q6H 04/06/18 Albuterol Sulfate [Proair Hfa] 2 puff IH Q6H PRN 04/06/18 Fluticasone Propionate [Flovent Diskus] 110 mcg IH BID 04/06/18 Fluticasone/Salmeterol [Advair 250-50 Diskus] 1 puff IH Q12H 04/06/18 Gabapentin 600 mg PO TID 04/06/18 Nebulizer [Airs Disposable Nebulizer] 04/06/18 Alcohol Antiseptic Pads [Alcohol Prep Pads] 1 each TP ASDIR #1 box 04/07/18 Aspirin [ASA -] 81 mg PO DAILY #30 tab.chew 04/07/18 Atorvastatin Ca [Lipitor] 80 mg PO HS 28 Days #28 tablet 04/07/18 Atorvastatin Ca [Lipitor] 80 mg PO HS 30 Days #30 tab 04/07/18 Furosemide [Lasix] 40 mg PO DAILY 28 Days #28 tablet 04/07/18 Insulin Glargine,Hum.rec.anlog [Basaglar Kwikpen U-100] 10 unit SQ DAILY #1 insuln.pen 04/07/18 Miscellaneous Medical Supply [Glucometer Device] 1 each .ROUTE ASDIR #1 kit Miscellaneous Medical Supply [Glucometer Test Strips #50] 1 each .ROUTE ASDIR # 1 box 04/07/18 Miscellaneous Medical Supply [Lancets] 1 each .ROUTE ASDIR #1 box 04/07/18 Review of Systems Findings/Remarks: Denies fevers, ear/ eye pain, CP, SOB, abdominal pain, nausea, vomiting, dysuria , numbness BUE/ BLE, muscle/ joint pain Notes being weak Physical Exam Vital Signs: Vital Signs Temperature 98.1 F 02/01/19 10:00 Pulse Rate 95 H 02/01/19 10:00 Respiratory Rate 20 02/01/19 10:00 Blood Pressure 139/69 02/01/19 10:00 O2 Sat by Pulse Oximetry (%) 93 L 01/31/19 21:00 Musculoskeletal: Yes: Other (General: calm elderly HF sitting in bed NAD on supplemental O2 N/M: B shoulder flexion to 120 degrees, 4/5 R delt then 4+/5 BUE , 4/5 B HF then 5-/5 BLE; Pinprick Intact BUE/ BLE Extremities: no BLE pitting edema, no B calf tenderness) Labs: CBC, BMP 02/01/19 06:50 02/01/19 06:50 Assessment/Plan Impression: 1) Deficits mobility/ ADLs 2) Deconditioning 3) Gait abnormality 4) CHF exacerbation causing elevated troponin, with hx NSTEMI, HTN, HLD 5) COPD exacerbation causing resp failure c/b PNA with hx LEONIDES, COPD on home O2 6) Morbid obesity 7) JUANCARLOS 8) DMT2 9) Respiratory acidosis with compensatory metabolic acidosis 10) No documented flu shot/ pneumovax Recommendations: 1) PT for stretching strengthening ROM endurance and functional mobility 2) Falls, safety precautions 3) Cardiopulmonary precautions 4) Diabetic precautions 5) DVT ppx: on hep sc BID 6) Bowel regimen prn 7) Nutrition consult for obesity 8) Monitor BMP given electrolyte abnormalities and renal function 9) Monitor CBC given anemia 10) Discharge planning: d/w pt that she would benefit from inpatient rehabilitation once medically stable; she prefers to return home with home services. Continue to monitor progress with PT while in-house Thank you for this referral.
[2019-02-01] MEDS ORDERED: POTASSIUM CHLORIDE ORAL LIQUID 20 MEQ/15 ML PO ONE (16:32)
--- NOTE | 2019-02-01 16:32 | PN ---
Progress Note, Physician Chief Complaint: Pt s A&Ox3; no chest pain; + dsypnea on mild exertion.Mildly tender bilateral LEs below the knees. History of Present Illness: 68-year-old female with history of morbid obesity, COPD on home oxygen at 2 L, diastolic CHF (echo 04/10 with normal EF), HTN, DM, hyperlipidemia, now sent in by PCP Dr. Valenzuela for volume overload and increased work of breathing. Patient reports increasing dyspnea over the last 3 days, also reports having difficulty urinating (but self discontinued her Lasix). Denies any fevers or chills or chest pain or pressure, denies palpitations. Worsening orthopnea over the last 72 hours, has required diuresis in the past. - Current Medication List Current Medications: Active Medications Albuterol/Ipratropium (Duoneb -) 1 amp NEB RQID [facility] Last Admin: 02/01/19 12:00 Dose: 1 amp Aspirin (Asa -) 81 mg PO DAILY [facility] Last Admin: 02/01/19 10:05 Dose: 81 mg Atorvastatin Calcium (Lipitor -) 40 mg PO HS [facility] Last Admin: 01/31/19 21:27 Dose: 40 mg Budesonide/Formoterol Fumarate (Symbicort 160/4.5mcg -) 2 puff IH BID [facility] Last Admin: 02/01/19 10:20 Dose: 2 puff Furosemide (Lasix Injection -) 40 mg IVPUSH BID@0600,1400 [facility] Last Admin: 02/01/19 13:07 Dose: 40 mg Gabapentin (Neurontin -) 300 mg PO TID [facility] Last Admin: 02/01/19 13:07 Dose: 300 mg Heparin Sodium (Porcine) (Heparin -) 5,000 unit SQ BID [facility] Last Admin: 02/01/19 10:05 Dose: 5,000 unit Ceftriaxone Sodium 2 gm/ (Dextrose) 100 mls @ 200 mls/hr IVPB DAILY [facility]; Protocol Last Admin: 02/01/19 12:41 Dose: 200 mls/hr Insulin Aspart (Novolog Vial Sliding Scale -) 1 vial SQ ACHS [facility]; Protocol Last Admin: 02/01/19 11:20 Dose: 6 units Magnesium Oxide (Mag-Ox -) 400 mg PO DAILY [facility] Last Admin: 02/01/19 11:51 Dose: 400 mg Nystatin/Triamcinolone Acetonide (Mycolog Ii Cream -) 1 applic TP BID [facility] Last Admin: 02/01/19 10:20 Dose: 1 applic Pantoprazole Sodium (Protonix -) 40 mg PO DAILY [facility] Last Admin: 02/01/19 10:05 Dose: 40 mg Polyethylene Glycol (Miralax (For Daily Use) -) 17 gm PO BID [facility] Last Admin: 02/01/19 10:21 Dose: 17 gm Potassium Chloride (K-Dur -) 20 meq PO BID [facility] - Objective Vital Signs: Vital Signs Temperature 98.5 F 02/01/19 14:00 Pulse Rate 89 02/01/19 14:00 Respiratory Rate 20 02/01/19 14:00 Blood Pressure 141/74 02/01/19 14:00 O2 Sat by Pulse Oximetry (%) 93 L 02/01/19 09:00 Constitutional: Yes: No Distress, Obese Eyes: Yes: WNL HENT: Yes: WNL Neck: Yes: WNL Cardiovascular: Yes: S1, S2 Respiratory: Yes: Diminished Gastrointestinal: Yes: Soft, Abdomen, Obese ...Rectal Exam: Yes: Deferred Genitourinary: No: Anuria Breast(s): Yes: WNL Musculoskeletal: Yes: Joint Stiffness, Joint Swelling, Muscle Weakness Extremities: Yes: Cool Edema: Yes Edema: LLE: Trace, RLE: Trace Peripheral Pulses WNL: Yes Integumentary: Yes: WNL Neurological: Yes: Alert, Oriented, Weakness Psychiatric: Yes: Alert, Oriented Labs: CBC, BMP 02/01/19 06:50 02/01/19 06:50 Abnormal Lab Results 02/02/19 02/02/19 02/02/19 06:15 06:15 12:26 WBC 11.8 H RDW 15.8 H Absolute Neuts (auto) 9.2 H ABG pH 7.47 H ABG pCO2 at Pt Temp 54.2 H ABG pO2 at Pt Temp 73.7 L ABG HCO3 38.6 H ABG Base Excess 12.4 H Sodium 133 L Chloride 86 L Carbon Dioxide 42 H Anion Gap 5 L BUN 24.5 H Random Glucose 175 H AST 14 L Albumin 2.9 L - ....Imaging Chest X-ray: Image Reviewed EKG: Image Reviewed Problem List - Problems (1) COPD exacerbation Assessment/Plan: O2, bronchodilators, steroids per grain elevator clerk. Code(s): J44.1 - CHRONIC OBSTRUCTIVE PULMONARY DISEASE W (ACUTE) EXACERBATION (2) HLD (hyperlipidemia) Assessment/Plan: on atorvastatin at home; elevated LDL. Now on atorvastatin 40 mg daily; f/u lipid profile serially. Code(s): E78.5 - HYPERLIPIDEMIA, UNSPECIFIED (3) HTN (hypertension) Assessment/Plan: On metoprolol, losartan as outpatient. Will restart losartan 50 mg daily. Code(s): I10 - ESSENTIAL (PRIMARY) HYPERTENSION Qualifiers: Hypertension type: renovascular hypertension Qualified Code(s): I15.0 - Renovascular hypertension (4) Hypercapnic respiratory failure Assessment/Plan: F/u bronchodilators, antibiotics, O2, and steroids with grain elevator clerk. Code(s): J96.92 - RESPIRATORY FAILURE, UNSPECIFIED WITH HYPERCAPNIA Qualifiers: Chronicity: unspecified Qualified Code(s): J96.92 - Respiratory failure, unspecified with hypercapnia (5) Obesity, morbid, BMI 50 or higher Assessment/Plan: The imperative need to modify diet and decrease weight was discussed with pt. Dietary/diabetic consult would be of benefit. Code(s): E66.01 - MORBID (SEVERE) OBESITY DUE TO EXCESS CALORIES (6) Diastolic CHF Code(s): I50.30 - UNSPECIFIED DIASTOLIC (CONGESTIVE) HEART FAILURE (7) Diabetes Code(s): E11.9 - TYPE 2 DIABETES MELLITUS WITHOUT COMPLICATIONS (8) [place] cardiac risk >20% in next 10 years Assessment/Plan: Pt had stress MIBI 03/2018 that showed no ischemia; however, transient ischemic dilatation score was borderline elevated, which may be indicative of underlying CAD. ECHO: normal LVEF; abnormal diastolic compliance; borderline RVE; mild MR; trace TR. Once stable, will have further coronary artery evaluation (CTA or coronary angiogram) as an outpatient. Aggressive lipid-lowering; diet modification; weight loss; BP and glucose control. Code(s): Z91.89 - OTH PERSONAL RISK FACTORS, NOT ELSEWHERE CLASSIFIED (9) Acute on chronic diastolic (congestive) heart failure Assessment/Plan: On metoprolol (and has been on losartan as outpatient). F/u BUN/Cr, electrolytes, daily weight, and Is and Os. See "[place] Risk" regarding further coronary artery evaluation. Code(s): I50.33 - ACUTE ON CHRONIC DIASTOLIC (CONGESTIVE) HEART FAILURE
[2019-02-01 16:56] VITALS: BMI 39.3
[2019-02-01] MEDS: LOSARTAN POTASSIUM 50 MG TABLET (FP) PO SCH (17:08)
[2019-02-01] MEDS: POTASSIUM CHLORIDE TABS 10 MEQ TABLET.ER (FP) PO SCH (21:16)
[2019-02-01] MEDS: ATORVASTATIN CA 40 MG TABLET (FP) PO SCH (21:16)
[2019-02-02] MEDS: FUROSEMIDE 40 MG/4 ML INJECTABLE VIAL IVPUSH SCH (06:23)
[2019-02-02] MEDS: GABAPENTIN 300 MG CAPSULE (FP) PO SCH ×3 (06:24→21:51)
[2019-02-02] MEDS: INSULIN SLIDING SCALE (NOVOLOG) 1 VIAL SQ SCH ×4 (06:33→21:52)
[2019-02-02 07:32] LABS: MAGNESIUM 2.1 mg/dL (1.8-2.4)
[2019-02-02] MEDS: ALBUTEROL SO4 2.5/IPRATROPIUM 0.5 INH SOL 3 ML VIAL.NEB. NEB SCH ×4 (08:19→20:35)
[2019-02-02 08:46] LABS: BASO % 0.4 % (0-2.0); EOS % 4.1 % (0-4.5); HEMATOCRIT 43.3 % (32.4-45.2); HEMOGLOBIN 13.9 GM/dL (10.7-15.3); LYMPH % 10.1 % (8-40); MCH 27.2 pg (25.7-33.7); MEAN PLT VOLUME 10.7 fl (7.5-11.1); MONO % 7.6 % (3.8-10.2); NEUT % 77.8 % (42.8-82.8); PLATELET COUNT 217 K/MM3 (134-434); RBC 5.09 M/mm3 (3.60-5.2); RDW 15.8 % (11.6-15.6); WHITE BLOOD COUNT 11.8 K/mm3 (4.0-10.0)
--- NOTE | 2019-02-02 08:49 | PN ---
Progress Note, Physician - Current Medication List Current Medications: Active Medications Albuterol/Ipratropium (Duoneb -) 1 amp NEB RQID [facility] Last Admin: 02/02/19 08:19 Dose: 1 amp Aspirin (Asa -) 81 mg PO DAILY [facility] Last Admin: 02/01/19 10:05 Dose: 81 mg Atorvastatin Calcium (Lipitor -) 40 mg PO HS [facility] Last Admin: 02/01/19 21:16 Dose: 40 mg Budesonide/Formoterol Fumarate (Symbicort 160/4.5mcg -) 2 puff IH BID [facility] Last Admin: 02/01/19 21:17 Dose: 2 puff Furosemide (Lasix Injection -) 40 mg IVPUSH BID@0600,1400 [facility] Last Admin: 02/02/19 06:23 Dose: 40 mg Gabapentin (Neurontin -) 300 mg PO TID [facility] Last Admin: 02/02/19 06:24 Dose: 300 mg Heparin Sodium (Porcine) (Heparin -) 5,000 unit SQ BID [facility] Last Admin: 02/01/19 21:16 Dose: 5,000 unit Ceftriaxone Sodium 2 gm/ (Dextrose) 100 mls @ 200 mls/hr IVPB DAILY [facility]; Protocol Last Admin: 02/01/19 12:41 Dose: 200 mls/hr Insulin Aspart (Novolog Vial Sliding Scale -) 1 vial SQ ACHS [facility]; Protocol Last Admin: 02/02/19 06:33 Dose: 2 units Losartan Potassium (Cozaar -) 50 mg PO DAILY [facility] Last Admin: 02/01/19 17:08 Dose: 50 mg Magnesium Oxide (Mag-Ox -) 400 mg PO DAILY [facility] Last Admin: 02/01/19 11:51 Dose: 400 mg Nystatin/Triamcinolone Acetonide (Mycolog Ii Cream -) 1 applic TP BID [facility] Last Admin: 02/01/19 21:18 Dose: 1 applic Pantoprazole Sodium (Protonix -) 40 mg PO DAILY [facility] Last Admin: 02/01/19 10:05 Dose: 40 mg Polyethylene Glycol (Miralax (For Daily Use) -) 17 gm PO BID [facility] Last Admin: 02/01/19 21:17 Dose: 17 gm Potassium Chloride (K-Dur -) 20 meq PO BID [facility] Last Admin: 02/01/19 21:16 Dose: 20 meq - Objective Vital Signs: Vital Signs Temperature 97.8 F 02/02/19 08:03 Pulse Rate 80 02/02/19 08:03 Respiratory Rate 18 02/02/19 08:03 Blood Pressure 115/65 02/02/19 08:03 O2 Sat by Pulse Oximetry (%) 94 L 02/02/19 08:05 Cardiovascular: Yes: S1, S2 Respiratory: Yes: Regular, CTA Bilaterally Gastrointestinal: Yes: Normal Bowel Sounds, Soft Assessment/Plan - Problems (1) COPD exacerbation Assessment/Plan: -Pulm on board -O2 via NC -Bipap HS -bronchodilators -keep SpO2 >90% -Symbicort Code(s): J44.1 - CHRONIC OBSTRUCTIVE PULMONARY DISEASE W (ACUTE) EXACERBATION (2) Acute on chronic respiratory failure with hypoxia and hypercapnia Assessment/Plan: -Pulm on board -bronchodilators -O2 via NC -Bipap HS -keep SpO2 >90% -ABGs -Ceftriaxone to po ceftin -Legionella neg, Influenza neg, RSV neg, Sputum culture neg Code(s): J96.21 - ACUTE AND CHRONIC RESPIRATORY FAILURE WITH HYPOXIA; J96.22 - ACUTE AND CHRONIC RESPIRATORY FAILURE WITH HYPERCAPNIA (3) CHF exacerbation Assessment/Plan: -Cardiology on board -tele monitoring -BNP [id number]~[id number] -daily weights -strict I&Os -Furosemide IV bid--60 po bid -Replace k Code(s): I50.9 - HEART FAILURE, UNSPECIFIED Qualifiers: Heart failure type: unspecified Qualified Code(s): I50.9 - Heart failure, unspecified (4) Diabetes Assessment/Plan: -[facility] -HgA1c 7.5% Code(s): E11.9 - TYPE 2 DIABETES MELLITUS WITHOUT COMPLICATIONS (5) HTN (hypertension) Assessment/Plan: -low Na/dibetic diet -monitor BP Code(s): I10 - ESSENTIAL (PRIMARY) HYPERTENSION Qualifiers: Hypertension type: renovascular hypertension Qualified Code(s): I15.0 - Renovascular hypertension (6) HLD (hyperlipidemia) Assessment/Plan: -Atorvastatin Code(s): E78.5 - HYPERLIPIDEMIA, UNSPECIFIED (7) Leukocytosis Assessment/Plan: -WBC 9.9 -afebrile -ID on board -Ceftriaxone -LA ordered -BC neg -UC neg -CXR shows no pneumothorax, pleural effusion, no vascular congestive changes, no pulmonary infiltrates Code(s): D72.829 - ELEVATED WHITE BLOOD CELL COUNT, UNSPECIFIED (8) Elevated troponin Assessment/Plan: -troponin 0.42,~0.22 -Tele monitoring -Cardiology on board Code(s): R79.89 - OTHER SPECIFIED ABNORMAL FINDINGS OF BLOOD CHEMISTRY
[2019-02-02 08:55] LABS: ALBUMIN 2.9 g/dl (3.4-5.0); BILIRUBIN,TOTAL 0.9 mg/dL (0.2-1); BLOOD UREA NITROGEN 24.5 mg/dL (7-18); CALCIUM 8.6 mg/dL (8.5-10.1); CREATININE 0.7 mg/dL (0.55-1.3); POTASSIUM 3.8 mmol/L (3.5-5.1); TOT PROT 7.1 g/dl (6.4-8.2)
[2019-02-02] MEDS ORDERED: PT OWN MED DRAWER 7, Y5N ONE (09:34)
[2019-02-02] MEDS: POTASSIUM CHLORIDE TABS 10 MEQ TABLET.ER (FP) PO SCH ×2 (09:35→21:51)
[2019-02-02] MEDS: POLYETHYLENE GLYCOL 3350 119 GM BTL PO SCH ×2 (09:36→21:51)
[2019-02-02] MEDS: MAGNESIUM OXIDE 400 MG TABLET (FP) PO SCH (09:36)
[2019-02-02] MEDS: PANTOPRAZOLE 40 MG TABLET (FP) PO SCH (09:36)
[2019-02-02] MEDS: HEPARIN NA (PORCINE) 5,000 UNITS/ML 1ML VIAL SQ SCH ×2 (09:36→21:51)
[2019-02-02] MEDS: ASPIRIN 81 MG CHEWABLE TABLETS PO SCH (09:36)
[2019-02-02] MEDS: LOSARTAN POTASSIUM 50 MG TABLET (FP) PO SCH (09:36)
[2019-02-02] MEDS: BUDESONIDE/FORMETEROL FUMARATE 160/4.5 mcg INHALER IH SCH ×2 (09:37→21:52)
[2019-02-02] MEDS: NYSTATIN/TRIAMCINOLONE TOPICAL CREAM 15 GM TUBE TP SCH ×2 (09:37→21:51)
--- NOTE | 2019-02-02 10:13 | PN ---
Progress Note, Physician History of Present Illness: 68 y.o. F w/ PMHx. of [place], COPD (on 2.5L NC @ home), LEONIDES (on home CPAP), DM2, HTN and HLD presents for worsening shortness of breath at the request of her daughter. Per daughter at bedside who does not live with her, Pt. has [employer] from 9am-2pm, Pt. had been having worsening shortness of breath with productive sputum for "awhile" now and was refusing to go to the hospital. Pt. was also complaining of lower abdominal pain per daughter and RN prior to intubation. Per chart review Pt. was last admitted in March for similar symptoms requiring intubation 2/2 poor compliance with Lasix and with CPAP. Last Echo in March showed and EF of 60-65% with mildly impaired relaxation. Per daughter Pt. did not have any fevers at home and denied any other acute complaints however was using OTC NSAIDs to treat joint and back pain. - Current Medication List Current Medications: Active Medications Albuterol/Ipratropium (Duoneb -) 1 amp NEB RQID [facility] Last Admin: 02/02/19 08:19 Dose: 1 amp Aspirin (Asa -) 81 mg PO DAILY [facility] Last Admin: 02/02/19 09:36 Dose: 81 mg Atorvastatin Calcium (Lipitor -) 40 mg PO HS [facility] Last Admin: 02/01/19 21:16 Dose: 40 mg Budesonide/Formoterol Fumarate (Symbicort 160/4.5mcg -) 2 puff IH BID [facility] Last Admin: 02/02/19 09:37 Dose: 2 puff Cefuroxime Axetil (Ceftin -) 500 mg PO BID [facility] Furosemide (Lasix -) 60 mg PO BIDLASIX [facility] Gabapentin (Neurontin -) 300 mg PO TID [facility] Last Admin: 02/02/19 06:24 Dose: 300 mg Heparin Sodium (Porcine) (Heparin -) 5,000 unit SQ BID [facility] Last Admin: 02/02/19 09:36 Dose: 5,000 unit Insulin Aspart (Novolog Vial Sliding Scale -) 1 vial SQ ACHS [facility]; Protocol Last Admin: 02/02/19 06:33 Dose: 2 units Losartan Potassium (Cozaar -) 50 mg PO DAILY [facility] Last Admin: 02/02/19 09:36 Dose: 50 mg Magnesium Oxide (Mag-Ox -) 400 mg PO DAILY [facility] Last Admin: 02/02/19 09:36 Dose: 400 mg Nystatin/Triamcinolone Acetonide (Mycolog Ii Cream -) 1 applic TP BID [facility] Last Admin: 02/02/19 09:37 Dose: 1 applic Pantoprazole Sodium (Protonix -) 40 mg PO DAILY [facility] Last Admin: 02/02/19 09:36 Dose: 40 mg Polyethylene Glycol (Miralax (For Daily Use) -) 17 gm PO BID [facility] Last Admin: 02/02/19 09:36 Dose: 17 gm Potassium Chloride (K-Dur -) 20 meq PO BID [facility] Last Admin: 02/02/19 09:35 Dose: 20 meq - Objective Vital Signs: Vital Signs Temperature 97.8 F 02/02/19 08:03 Pulse Rate 80 02/02/19 08:03 Respiratory Rate 18 02/02/19 08:03 Blood Pressure 115/65 02/02/19 08:03 O2 Sat by Pulse Oximetry (%) 94 L 02/02/19 08:05 Eyes: Yes: WNL, Conjunctiva Clear, EOM Intact HENT: Yes: WNL, Atraumatic, Normocephalic Neck: Yes: WNL, Supple, Trachea Midline Cardiovascular: Yes: WNL, Regular Rate and Rhythm Respiratory: Yes: WNL, Regular, CTA Bilaterally Gastrointestinal: Yes: WNL, Normal Bowel Sounds Genitourinary: Yes: WNL Musculoskeletal: Yes: WNL Extremities: Yes: WNL Edema: No Integumentary: Yes: WNL Neurological: Yes: WNL, Alert, Oriented ...Motor Strength: WNL Psychiatric: Yes: WNL Labs: CBC, BMP 02/02/19 06:15 02/02/19 06:15 Problem List - Problems (1) CHF (congestive heart failure) Code(s): I50.9 - HEART FAILURE, UNSPECIFIED Qualifiers: Heart failure type: diastolic Heart failure chronicity: acute on chronic Qualified Code(s): I50.33 - Acute on chronic diastolic (congestive) heart failure (2) COPD exacerbation Code(s): J44.1 - CHRONIC OBSTRUCTIVE PULMONARY DISEASE W (ACUTE) EXACERBATION (3) Elevated troponin Code(s): R79.89 - OTHER SPECIFIED ABNORMAL FINDINGS OF BLOOD CHEMISTRY (4) HLD (hyperlipidemia) Code(s): E78.5 - HYPERLIPIDEMIA, UNSPECIFIED (5) HTN (hypertension) Code(s): I10 - ESSENTIAL (PRIMARY) HYPERTENSION Qualifiers: Hypertension type: renovascular hypertension Qualified Code(s): I15.0 - Renovascular hypertension (6) Hypercapnic respiratory failure Code(s): J96.92 - RESPIRATORY FAILURE, UNSPECIFIED WITH HYPERCAPNIA Qualifiers: Chronicity: unspecified Qualified Code(s): J96.92 - Respiratory failure, unspecified with hypercapnia (7) Leukocytosis Code(s): D72.829 - ELEVATED WHITE BLOOD CELL COUNT, UNSPECIFIED (8) Obesity, morbid, BMI 50 or higher Code(s): E66.01 - MORBID (SEVERE) OBESITY DUE TO EXCESS CALORIES (9) Pneumonia Code(s): J18.9 - PNEUMONIA, UNSPECIFIED ORGANISM Qualifiers: Aspiration pneumonia type: unspecified Laterality: unspecified laterality Lung location: unspecified part of lung (10) Acute on chronic respiratory failure with hypoxia and hypercapnia Code(s): J96.21 - ACUTE AND CHRONIC RESPIRATORY FAILURE WITH HYPOXIA; J96.22 - ACUTE AND CHRONIC RESPIRATORY FAILURE WITH HYPERCAPNIA (11) CHF exacerbation Code(s): I50.9 - HEART FAILURE, UNSPECIFIED Qualifiers: Heart failure type: unspecified Qualified Code(s): I50.9 - Heart failure, unspecified (12) Diastolic CHF Code(s): I50.30 - UNSPECIFIED DIASTOLIC (CONGESTIVE) HEART FAILURE (13) NSTEMI (non-ST elevated myocardial infarction) Code(s): I21.4 - NON-ST ELEVATION (NSTEMI) MYOCARDIAL INFARCTION (14) RSV (acute bronchiolitis due to respiratory syncytial virus) Code(s): J21.0 - ACUTE BRONCHIOLITIS DUE TO RESPIRATORY SYNCYTIAL VIRUS (15) Respiratory failure Code(s): J96.90 - RESPIRATORY FAILURE, UNSP, UNSP W HYPOXIA OR HYPERCAPNIA Qualifiers: Chronicity: unspecified Respiratory failure complication: hypoxia and hypercapnia Qualified Code(s): J96.91 - Respiratory failure, unspecified with hypoxia; J96.92 - Respiratory failure, unspecified with hypercapnia (16) Diabetes Code(s): E11.9 - TYPE 2 DIABETES MELLITUS WITHOUT COMPLICATIONS Assessment/Plan - Problems (1) COPD exacerbation Assessment/Plan: O2, bronchodilators, steroids per dry kiln operator. Code(s): J44.1 - CHRONIC OBSTRUCTIVE PULMONARY DISEASE W (ACUTE) EXACERBATION (2) HLD (hyperlipidemia) Assessment/Plan: on atorvastatin at home; elevated LDL. Code(s): E78.5 - HYPERLIPIDEMIA, UNSPECIFIED (3) HTN (hypertension) Assessment/Plan: On metoprolol, losartan as outpatient. Will restart losartan 50 mg daily. Code(s): I10 - ESSENTIAL (PRIMARY) HYPERTENSION Qualifiers: Hypertension type: renovascular hypertension Qualified Code(s): I15.0 - Renovascular hypertension (4) Hypercapnic respiratory failure Assessment/Plan: F/u bronchodilators, antibiotics, O2, and steroids with dry kiln operator. Code(s): J96.92 - RESPIRATORY FAILURE, UNSPECIFIED WITH HYPERCAPNIA Qualifiers: Chronicity: unspecified Qualified Code(s): J96.92 - Respiratory failure, unspecified with hypercapnia (5) Obesity, morbid, BMI 50 or higher Assessment/Plan: The imperative need to modify diet and decrease weight was discussed with pt. Dietary/diabetic consult would be of benefit. Code(s): E66.01 - MORBID (SEVERE) OBESITY DUE TO EXCESS CALORIES (6) Diastolic CHF Code(s): I50.30 - UNSPECIFIED DIASTOLIC (CONGESTIVE) HEART FAILURE (7) Diabetes Code(s): E11.9 - TYPE 2 DIABETES MELLITUS WITHOUT COMPLICATIONS (8) [place] cardiac risk >20% in next 10 years Assessment/Plan: Pt had stress MIBI 03/2018 that showed no ischemia; however, transient ischemic dilatation score was borderline elevated, which may be indicative of underlying CAD. ECHO: normal LVEF; abnormal diastolic compliance; borderline RVE; mild MR; trace TR. Once stable, will have further coronary artery evaluation (CTA or coronary angiogram) as an outpatient. Aggressive lipid-lowering; diet modification; weight loss; BP and glucose control. Code(s): Z91.89 - OTH PERSONAL RISK FACTORS, NOT ELSEWHERE CLASSIFIED (9) Acute on chronic diastolic (congestive) heart failure Assessment/Plan: On metoprolol (and has been on losartan as outpatient). F/u BUN/Cr, electrolytes, daily weight, and Is and Os. See "[place] Risk" regarding further coronary artery evaluation. Code(s): I50.33 - ACUTE ON CHRONIC DIASTOLIC (CONGESTIVE) HEART FAILURE
[2019-02-02] MEDS: CEFUROXIME AXETIL 500 MG TABLET PO SCH ×2 (10:28→21:51)
--- NOTE | 2019-02-02 11:22 | PN ---
Progress Note, Physician History of Present Illness: Pt seen and examined at bedside. She is awake and alert. She feels that her breathing is improved. She feels that she is able to ambulate more. - Current Medication List Current Medications: Active Medications Albuterol/Ipratropium (Duoneb -) 1 amp NEB RQID [facility] Last Admin: 02/02/19 08:19 Dose: 1 amp Aspirin (Asa -) 81 mg PO DAILY [facility] Last Admin: 02/02/19 09:36 Dose: 81 mg Atorvastatin Calcium (Lipitor -) 40 mg PO HS [facility] Last Admin: 02/01/19 21:16 Dose: 40 mg Budesonide/Formoterol Fumarate (Symbicort 160/4.5mcg -) 2 puff IH BID [facility] Last Admin: 02/02/19 09:37 Dose: 2 puff Cefuroxime Axetil (Ceftin -) 500 mg PO BID [facility] Last Admin: 02/02/19 10:28 Dose: 500 mg Furosemide (Lasix -) 60 mg PO BIDLASIX [facility] Gabapentin (Neurontin -) 300 mg PO TID [facility] Last Admin: 02/02/19 06:24 Dose: 300 mg Heparin Sodium (Porcine) (Heparin -) 5,000 unit SQ BID [facility] Last Admin: 02/02/19 09:36 Dose: 5,000 unit Insulin Aspart (Novolog Vial Sliding Scale -) 1 vial SQ ACHS [facility]; Protocol Last Admin: 02/02/19 06:33 Dose: 2 units Losartan Potassium (Cozaar -) 50 mg PO DAILY [facility] Last Admin: 02/02/19 09:36 Dose: 50 mg Magnesium Oxide (Mag-Ox -) 400 mg PO DAILY [facility] Last Admin: 02/02/19 09:36 Dose: 400 mg Nystatin/Triamcinolone Acetonide (Mycolog Ii Cream -) 1 applic TP BID [facility] Last Admin: 02/02/19 09:37 Dose: 1 applic Pantoprazole Sodium (Protonix -) 40 mg PO DAILY [facility] Last Admin: 02/02/19 09:36 Dose: 40 mg Polyethylene Glycol (Miralax (For Daily Use) -) 17 gm PO BID [facility] Last Admin: 02/02/19 09:36 Dose: 17 gm Potassium Chloride (K-Dur -) 20 meq PO BID [facility] Last Admin: 02/02/19 09:35 Dose: 20 meq - Objective Vital Signs: Vital Signs Temperature 97.8 F 02/02/19 08:03 Pulse Rate 80 02/02/19 08:03 Respiratory Rate 18 02/02/19 08:03 Blood Pressure 115/65 02/02/19 08:03 O2 Sat by Pulse Oximetry (%) 94 L 02/02/19 08:05 Constitutional: Yes: Calm Eyes: Yes: Conjunctiva Clear HENT: Yes: Atraumatic Neck: Yes: Supple Cardiovascular: Yes: S1, S2 Respiratory: Yes: On Nasal O2 Gastrointestinal: Yes: Soft Genitourinary: Yes: Incontinence Edema: Yes Edema: LLE: Trace, RLE: Trace Neurological: Yes: Oriented Psychiatric: Yes: Oriented Labs: CBC, BMP 02/02/19 06:15 02/02/19 06:15 Problem List - Problems (1) Acute on chronic diastolic (congestive) heart failure Code(s): I50.33 - ACUTE ON CHRONIC DIASTOLIC (CONGESTIVE) HEART FAILURE (2) CHF (congestive heart failure) Code(s): I50.9 - HEART FAILURE, UNSPECIFIED Qualifiers: Heart failure type: diastolic Heart failure chronicity: acute on chronic Qualified Code(s): I50.33 - Acute on chronic diastolic (congestive) heart failure Assessment/Plan Current Medications Generic Name Dose Route Start Last Admin Trade Name Freq PRN Reason Stop Dose Admin Albuterol/Ipratropium 1 amp 01/29/19 20:00 02/02/19 08:19 Duoneb - NEB 1 amp RQID [facility] Administration Aspirin 81 mg 02/01/19 10:00 02/02/19 09:36 Asa - PO 81 mg DAILY [facility] Administration Atorvastatin Calcium 40 mg 01/29/19 22:00 02/01/19 21:16 Lipitor - PO 40 mg HS [facility] Administration Budesonide/Formoterol Fumarate 2 puff 01/29/19 10:00 02/02/19 09:37 Symbicort 160/4.5mcg - IH 2 puff BID [facility] Administration Cefuroxime Axetil 500 mg 02/02/19 10:00 02/02/19 10:28 Ceftin - PO 500 mg BID [facility] Administration Furosemide 60 mg 02/02/19 14:00 Lasix - PO BIDLASIX [facility] Gabapentin 300 mg 01/29/19 14:00 02/02/19 06:24 Neurontin - PO 300 mg TID [facility] Administration Heparin Sodium (Porcine) 5,000 unit 01/29/19 22:00 02/02/19 09:36 Heparin - SQ 5,000 unit BID [facility] Administration Insulin Aspart 1 vial 01/29/19 22:00 02/02/19 06:33 Novolog Vial Sliding Scale - SQ 2 units ACHS [facility] Administration Protocol Losartan Potassium 50 mg 02/01/19 16:45 02/02/19 09:36 Cozaar - PO 50 mg DAILY [facility] Administration Magnesium Oxide 400 mg 02/01/19 11:45 02/02/19 09:36 Mag-Ox - PO 400 mg DAILY [facility] Administration Nystatin/Triamcinolone Acetonide 1 applic 01/29/19 10:00 02/02/19 09:37 Mycolog Ii Cream - TP 1 applic BID [facility] Administration Pantoprazole Sodium 40 mg 01/29/19 10:00 02/02/19 09:36 Protonix - PO 40 mg DAILY [facility] Administration Polyethylene Glycol 17 gm 02/01/19 10:00 02/02/19 09:36 Miralax (For Daily Use) - PO 17 gm BID [facility] Administration Potassium Chloride 20 meq 02/01/19 22:00 02/02/19 09:35 K-Dur - PO 20 meq BID [facility] Administration Impression 1. JUANCARLOS 2. CHF diastolic 3. COPD on home o2 4. obesity 5. resp acidosis with met alkalosis 6. hyperkalemia Plan - agree with PO lasix - monitor lytes - renal function stable - volume status is improved - monitor volume status
--- NOTE | 2019-02-02 11:25 | PN ---
Progress Note, Physician History of Present Illness: PULMONARY ALERT,COMFORTABLE,OOB-CHAIR,-RESP DISTERSS - Current Medication List Current Medications: Active Medications Albuterol/Ipratropium (Duoneb -) 1 amp NEB RQID [facility] Last Admin: 02/02/19 08:19 Dose: 1 amp Aspirin (Asa -) 81 mg PO DAILY [facility] Last Admin: 02/02/19 09:36 Dose: 81 mg Atorvastatin Calcium (Lipitor -) 40 mg PO HS [facility] Last Admin: 02/01/19 21:16 Dose: 40 mg Budesonide/Formoterol Fumarate (Symbicort 160/4.5mcg -) 2 puff IH BID [facility] Last Admin: 02/02/19 09:37 Dose: 2 puff Cefuroxime Axetil (Ceftin -) 500 mg PO BID [facility] Last Admin: 02/02/19 10:28 Dose: 500 mg Furosemide (Lasix -) 60 mg PO BIDLASIX [facility] Gabapentin (Neurontin -) 300 mg PO TID [facility] Last Admin: 02/02/19 06:24 Dose: 300 mg Heparin Sodium (Porcine) (Heparin -) 5,000 unit SQ BID [facility] Last Admin: 02/02/19 09:36 Dose: 5,000 unit Insulin Aspart (Novolog Vial Sliding Scale -) 1 vial SQ [facility]; Protocol Last Admin: 02/02/19 06:33 Dose: 2 units Losartan Potassium (Cozaar -) 50 mg PO DAILY [facility] Last Admin: 02/02/19 09:36 Dose: 50 mg Magnesium Oxide (Mag-Ox -) 400 mg PO DAILY [facility] Last Admin: 02/02/19 09:36 Dose: 400 mg Nystatin/Triamcinolone Acetonide (Mycolog Ii Cream -) 1 applic TP BID [facility] Last Admin: 02/02/19 09:37 Dose: 1 applic Pantoprazole Sodium (Protonix -) 40 mg PO DAILY [facility] Last Admin: 02/02/19 09:36 Dose: 40 mg Polyethylene Glycol (Miralax (For Daily Use) -) 17 gm PO BID [facility] Last Admin: 02/02/19 09:36 Dose: 17 gm Potassium Chloride (K-Dur -) 20 meq PO BID [facility] Last Admin: 02/02/19 09:35 Dose: 20 meq - Objective Vital Signs: Vital Signs Temperature 97.8 F 02/02/19 08:03 Pulse Rate 80 02/02/19 08:03 Respiratory Rate 18 02/02/19 08:03 Blood Pressure 115/65 02/02/19 08:03 O2 Sat by Pulse Oximetry (%) 94 L 02/02/19 08:05 Constitutional: Yes: No Distress, Calm, Obese Eyes: Yes: WNL HENT: Yes: WNL Neck: Yes: WNL Cardiovascular: Yes: Regular Rate and Rhythm, S1, S2 Respiratory: Yes: Diminished Gastrointestinal: Yes: Normal Bowel Sounds, Abdomen, Obese Extremities: Yes: WNL Edema: Yes Labs: CBC, BMP 02/02/19 06:15 02/02/19 06:15 - ....Imaging Chest X-ray: Report Reviewed, Image Reviewed Problem List - Problems (1) Acute on chronic diastolic (congestive) heart failure Code(s): I50.33 - ACUTE ON CHRONIC DIASTOLIC (CONGESTIVE) HEART FAILURE (2) CHF (congestive heart failure) Code(s): I50.9 - HEART FAILURE, UNSPECIFIED Qualifiers: Qualified Code(s): I50.33 - Acute on chronic diastolic (congestive) heart failure (3) COPD exacerbation Code(s): J44.1 - CHRONIC OBSTRUCTIVE PULMONARY DISEASE W (ACUTE) EXACERBATION (4) HLD (hyperlipidemia) Code(s): E78.5 - HYPERLIPIDEMIA, UNSPECIFIED (5) HTN (hypertension) Code(s): I10 - ESSENTIAL (PRIMARY) HYPERTENSION Qualifiers: Qualified Code(s): I15.0 - Renovascular hypertension (6) Hypercapnic respiratory failure Code(s): J96.92 - RESPIRATORY FAILURE, UNSPECIFIED WITH HYPERCAPNIA Qualifiers: Qualified Code(s): J96.92 - Respiratory failure, unspecified with hypercapnia (7) Acute on chronic respiratory failure with hypoxia and hypercapnia Code(s): J96.21 - ACUTE AND CHRONIC RESPIRATORY FAILURE WITH HYPOXIA; J96.22 - ACUTE AND CHRONIC RESPIRATORY FAILURE WITH HYPERCAPNIA (8) Diabetes Code(s): E11.9 - TYPE 2 DIABETES MELLITUS WITHOUT COMPLICATIONS (9) Acute on chronic respiratory failure with hypoxia and hypercapnia Code(s): J96.21 - ACUTE AND CHRONIC RESPIRATORY FAILURE WITH HYPOXIA; J96.22 - ACUTE AND CHRONIC RESPIRATORY FAILURE WITH HYPERCAPNIA Assessment/Plan ASSESSMENT AND PLAN: Acute on Chronic Hypoxic and Hypercapneic Respiratory Failure improving Acute on Chronic Diastolic Heart Failure improving Acute Kidney Injury Resolving Acute COPD Exacerbation Suspected CAP HTN DM Hyperlipidemia Obstructive Sleep Apnea - Lasix - Monitor urine output, creatinine - Daily weights - ABX per ID - inhaled bronchodilators - VTE prophylaxis - NIPPV support QHS and PRN - Symbicort BID - ABG DR GUERRERO
[2019-02-02 12:41] LABS: ARTERIAL BLD GAS O2 SATURATION 95.2 % (95-98); ARTERIAL BLOOD GAS BASE EXCESS 12.4 meq/l (-2-2); ARTERIAL BLOOD GAS PCO2 54.2 mmHg (35-45); ARTERIAL BLOOD GAS PO2 73.7 mmHg (80-100); ARTERIAL BLOOD GAS pH 7.47 (7.35-7.45)
[2019-02-02 12:43] LABS: ALLENS TEST POSITIVE
[2019-02-02] MEDS: FUROSEMIDE 20 MG TABLET (FP) PO SCH (14:30)
[2019-02-02] MEDS: ATORVASTATIN CA 40 MG TABLET (FP) PO SCH (21:51)
[2019-02-03] MEDS: FUROSEMIDE 20 MG TABLET (FP) PO SCH ×2 (05:47→13:14)
[2019-02-03] MEDS: GABAPENTIN 300 MG CAPSULE (FP) PO SCH ×3 (05:47→21:35)
[2019-02-03] MEDS: INSULIN SLIDING SCALE (NOVOLOG) 1 VIAL SQ SCH ×4 (06:49→21:36)
[2019-02-03] MEDS: ALBUTEROL SO4 2.5/IPRATROPIUM 0.5 INH SOL 3 ML VIAL.NEB. NEB SCH ×3 (07:40→15:50)
[2019-02-03] MEDS ORDERED: PT OWN MED DRAWER 7, Y5N ONE ×3 (09:00→21:18)
[2019-02-03] MEDS: MAGNESIUM OXIDE 400 MG TABLET (FP) PO SCH (09:07)
[2019-02-03] MEDS: PANTOPRAZOLE 40 MG TABLET (FP) PO SCH (09:07)
[2019-02-03] MEDS: POTASSIUM CHLORIDE TABS 10 MEQ TABLET.ER (FP) PO SCH ×2 (09:07→21:35)
[2019-02-03] MEDS: ASPIRIN 81 MG CHEWABLE TABLETS PO SCH (09:07)
[2019-02-03] MEDS: LOSARTAN POTASSIUM 50 MG TABLET (FP) PO SCH (09:07)
[2019-02-03] MEDS: HEPARIN NA (PORCINE) 5,000 UNITS/ML 1ML VIAL SQ SCH ×2 (09:07→21:36)
[2019-02-03] MEDS: BUDESONIDE/FORMETEROL FUMARATE 160/4.5 mcg INHALER IH SCH ×2 (09:08→21:43)
[2019-02-03] MEDS: POLYETHYLENE GLYCOL 3350 119 GM BTL PO SCH ×2 (09:08→21:46)
[2019-02-03] MEDS: NYSTATIN/TRIAMCINOLONE TOPICAL CREAM 15 GM TUBE TP SCH ×2 (09:08→21:43)
[2019-02-03] MEDS: CEFUROXIME AXETIL 500 MG TABLET PO SCH ×2 (09:37→21:36)
--- NOTE | 2019-02-03 12:37 | EKG ---
Test Reason : Blood Pressure : / mmHG Vent. Rate : 089 BPM Atrial Rate : 089 BPM P-R Int : 146 ms QRS Dur : 084 ms QT Int : 384 ms P-R-T Axes : 038 001 020 degrees QTc Int : 467 ms POOR DATA QUALITY, INTERPRETATION MAY BE ADVERSELY AFFECTED NORMAL SINUS RHYTHM NONSPECIFIC T WAVE ABNORMALITY ABNORMAL ECG WHEN COMPARED WITH ECG OF 28-JAN-2019 14:25, NON-SPECIFIC CHANGE IN ST SEGMENT IN INFERIOR LEADS Confirmed by MATT JAY MD ([id number]) on 02/03/2019 12:37:21 PM Referred By: KAYLI VICK DR Confirmed By:MATT JAY MD
--- NOTE | 2019-02-03 12:40 | PN ---
Progress Note, Physician History of Present Illness: Pt seen and examined at bedside. She is awake and alert. She denies shortness of breath. - Current Medication List Current Medications: Active Medications Albuterol/Ipratropium (Duoneb -) 1 amp NEB RQID [facility] Last Admin: 02/03/19 07:40 Dose: 1 amp Aspirin (Asa -) 81 mg PO DAILY [facility] Last Admin: 02/03/19 09:07 Dose: 81 mg Atorvastatin Calcium (Lipitor -) 40 mg PO HS [facility] Last Admin: 02/02/19 21:51 Dose: 40 mg Budesonide/Formoterol Fumarate (Symbicort 160/4.5mcg -) 2 puff IH BID [facility] Last Admin: 02/03/19 09:08 Dose: 2 puff Cefuroxime Axetil (Ceftin -) 500 mg PO BID [facility] Last Admin: 02/03/19 09:37 Dose: 500 mg Furosemide (Lasix -) 60 mg PO BIDLASIX [facility] Last Admin: 02/03/19 05:47 Dose: 60 mg Gabapentin (Neurontin -) 300 mg PO TID [facility] Last Admin: 02/03/19 05:47 Dose: 300 mg Heparin Sodium (Porcine) (Heparin -) 5,000 unit SQ BID [facility] Last Admin: 02/03/19 09:07 Dose: 5,000 unit Insulin Aspart (Novolog Vial Sliding Scale -) 1 vial SQ ACHS [facility]; Protocol Last Admin: 02/03/19 11:18 Dose: 4 units Losartan Potassium (Cozaar -) 50 mg PO DAILY [facility] Last Admin: 02/03/19 09:07 Dose: 50 mg Magnesium Oxide (Mag-Ox -) 400 mg PO DAILY [facility] Last Admin: 02/03/19 09:07 Dose: 400 mg Nystatin/Triamcinolone Acetonide (Mycolog Ii Cream -) 1 applic TP BID [facility] Last Admin: 02/03/19 09:08 Dose: 1 applic Pantoprazole Sodium (Protonix -) 40 mg PO DAILY [facility] Last Admin: 02/03/19 09:07 Dose: 40 mg Polyethylene Glycol (Miralax (For Daily Use) -) 17 gm PO BID [facility] Last Admin: 02/03/19 09:08 Dose: 17 gm Potassium Chloride (K-Dur -) 20 meq PO BID [facility] Last Admin: 02/03/19 09:07 Dose: 20 meq - Objective Vital Signs: Vital Signs Temperature 98.5 F 02/03/19 10:00 Pulse Rate 88 02/03/19 10:00 Respiratory Rate 18 02/03/19 10:00 Blood Pressure 126/58 L 02/03/19 10:00 O2 Sat by Pulse Oximetry (%) 93 L 02/03/19 07:40 Constitutional: Yes: Calm Eyes: Yes: Conjunctiva Clear HENT: Yes: Atraumatic Neck: Yes: Supple Cardiovascular: Yes: S1, S2 Respiratory: Yes: On Nasal O2 Gastrointestinal: Yes: Soft, Abdomen, Obese Musculoskeletal: Yes: WNL Edema: Yes Edema: LLE: Trace, RLE: Trace Integumentary: Yes: Venous Stasis Changes Neurological: Yes: Oriented Psychiatric: Yes: Oriented Labs: CBC, BMP 02/02/19 06:15 02/02/19 06:15 Problem List - Problems (1) Acute on chronic diastolic (congestive) heart failure Code(s): I50.33 - ACUTE ON CHRONIC DIASTOLIC (CONGESTIVE) HEART FAILURE (2) CHF (congestive heart failure) Code(s): I50.9 - HEART FAILURE, UNSPECIFIED Qualifiers: Heart failure type: diastolic Heart failure chronicity: acute on chronic Qualified Code(s): I50.33 - Acute on chronic diastolic (congestive) heart failure Assessment/Plan Current Medications Generic Name Dose Route Start Last Admin Trade Name Freq PRN Reason Stop Dose Admin Albuterol/Ipratropium 1 amp 01/29/19 20:00 02/03/19 07:40 Duoneb - NEB 1 amp RQID [facility] Administration Aspirin 81 mg 02/01/19 10:00 02/03/19 09:07 Asa - PO 81 mg DAILY [facility] Administration Atorvastatin Calcium 40 mg 01/29/19 22:00 02/02/19 21:51 Lipitor - PO 40 mg HS [facility] Administration Budesonide/Formoterol Fumarate 2 puff 01/29/19 10:00 02/03/19 09:08 Symbicort 160/4.5mcg - IH 2 puff BID [facility] Administration Cefuroxime Axetil 500 mg 02/02/19 10:00 02/03/19 09:37 Ceftin - PO 500 mg BID [facility] Administration Furosemide 60 mg 02/02/19 14:00 02/03/19 05:47 Lasix - PO 60 mg BIDLASIX [facility] Administration Gabapentin 300 mg 01/29/19 14:00 02/03/19 05:47 Neurontin - PO 300 mg TID [facility] Administration Heparin Sodium (Porcine) 5,000 unit 01/29/19 22:00 02/03/19 09:07 Heparin - SQ 5,000 unit BID [facility] Administration Insulin Aspart 1 vial 01/29/19 22:00 02/03/19 11:18 Novolog Vial Sliding Scale - SQ 4 units ACHS [facility] Administration Protocol Losartan Potassium 50 mg 02/01/19 16:45 02/03/19 09:07 Cozaar - PO 50 mg DAILY [facility] Administration Magnesium Oxide 400 mg 02/01/19 11:45 02/03/19 09:07 Mag-Ox - PO 400 mg DAILY [facility] Administration Nystatin/Triamcinolone Acetonide 1 applic 01/29/19 10:00 02/03/19 09:08 Mycolog Ii Cream - TP 1 applic BID [facility] Administration Pantoprazole Sodium 40 mg 01/29/19 10:00 02/03/19 09:07 Protonix - PO 40 mg DAILY [facility] Administration Polyethylene Glycol 17 gm 02/01/19 10:00 02/03/19 09:08 Miralax (For Daily Use) - PO 17 gm BID [facility] Administration Potassium Chloride 20 meq 02/01/19 22:00 02/03/19 09:07 K-Dur - PO 20 meq BID [facility] Administration Impression 1. JUANCARLOS 2. CHF diastolic 3. COPD on home o2 4. obesity 5. resp acidosis with met alkalosis 6. hyperkalemia Plan - cont lasix - recommend weight loss - 2 gram sodium diet - discussed compliance with meds - monitor volume status
--- NOTE | 2019-02-03 13:29 | PN ---
Progress Note (short form) - Note Progress Note: Awake and alert in NAD on [place] O2. Denies CP or SOB. No acute events overnight. Intake & Output 01/31/19 02/01/19 02/02/19 02/03/19 23:59 23:59 23:59 23:59 Intake Total 480 1894 1070 520 Output Total 350 Balance 480 1544 1070 520 Last Vital Signs Temp Pulse Resp BP Pulse Ox 98.5 F 88 18 126/58 L 94 L 02/03/19 10:00 02/03/19 10:00 02/03/19 10:00 02/03/19 10:00 02/03/19 10:00 Active Medications Albuterol/Ipratropium (Duoneb -) 1 amp NEB RQID [facility] Last Admin: 02/03/19 07:40 Dose: 1 amp Aspirin (Asa -) 81 mg PO DAILY [facility] Last Admin: 02/03/19 09:07 Dose: 81 mg Atorvastatin Calcium (Lipitor -) 40 mg PO HS [facility] Last Admin: 02/02/19 21:51 Dose: 40 mg Budesonide/Formoterol Fumarate (Symbicort 160/4.5mcg -) 2 puff IH BID [facility] Last Admin: 02/03/19 09:08 Dose: 2 puff Cefuroxime Axetil (Ceftin -) 500 mg PO BID [facility] Last Admin: 02/03/19 09:37 Dose: 500 mg Furosemide (Lasix -) 60 mg PO BIDLASIX [facility] Last Admin: 02/03/19 13:14 Dose: 60 mg Gabapentin (Neurontin -) 300 mg PO TID [facility] Last Admin: 02/03/19 13:14 Dose: 300 mg Heparin Sodium (Porcine) (Heparin -) 5,000 unit SQ BID [facility] Last Admin: 02/03/19 09:07 Dose: 5,000 unit Insulin Aspart (Novolog Vial Sliding Scale -) 1 vial SQ ACHS [facility]; Protocol Last Admin: 02/03/19 11:18 Dose: 4 units Losartan Potassium (Cozaar -) 50 mg PO DAILY [facility] Last Admin: 02/03/19 09:07 Dose: 50 mg Magnesium Oxide (Mag-Ox -) 400 mg PO DAILY [facility] Last Admin: 02/03/19 09:07 Dose: 400 mg Nystatin/Triamcinolone Acetonide (Mycolog Ii Cream -) 1 applic TP BID [facility] Last Admin: 02/03/19 09:08 Dose: 1 applic Pantoprazole Sodium (Protonix -) 40 mg PO DAILY [facility] Last Admin: 02/03/19 09:07 Dose: 40 mg Polyethylene Glycol (Miralax (For Daily Use) -) 17 gm PO BID [facility] Last Admin: 02/03/19 09:08 Dose: 17 gm Potassium Chloride (K-Dur -) 20 meq PO BID [facility] Last Admin: 02/03/19 09:07 Dose: 20 meq Gen: Awake and alert on NC O2, NAD Heart: RRR Lung: distant breath sounds Abd: soft, nontender, (+) BS Ext: decreasing edema Laboratory Results - last 24 hr 02/02/19 02/02/19 02/03/19 15:57 21:49 05:46 POC Glucometer 176 224 196 02/03/19 11:17 POC Glucometer 237 ASSESSMENT AND PLAN: Acute on Chronic Hypoxic and Hypercapneic Respiratory Failure Acute on Chronic Diastolic Heart Failure Acute Kidney Injury Resolving Acute COPD Exacerbation Suspected CAP HTN DM Hyperlipidemia Obstructive Sleep Apnea - Lasix - Monitor urine output, creatinine - Daily weights - PO ABX per ID - Monitor off systemic steroids - inhaled bronchodilators - VTE prophylaxis - NIPPV support QHS and PRN - Symbicort BID - DC planning Dr Paige
--- NOTE | 2019-02-03 15:32 | DS ---
Physical Examination Vital Signs: Vital Signs Temperature 98.5 F 02/03/19 14:47 Pulse Rate 121 H 02/03/19 14:47 Respiratory Rate 22 H 02/03/19 14:47 Blood Pressure 109/67 02/03/19 14:47 O2 Sat by Pulse Oximetry (%) 94 L 02/03/19 10:00 Constitutional: Yes: Calm Cardiovascular: Yes: Regular Rate and Rhythm, S1, S2 Respiratory: Yes: Diminished Gastrointestinal: Yes: Normal Bowel Sounds, Soft Labs: CBC, BMP 02/02/19 06:15 02/02/19 06:15 Discharge Summary Problems reviewed: Yes Reason For Visit: ACUTE ON CHRONIC CHF, PNEUMONIA, HYPERCAPNIA Current Active Problems Acute on chronic diastolic (congestive) heart failure (Acute) Acute on chronic respiratory failure with hypoxia and hypercapnia (Acute) CHF (congestive heart failure) (Acute) COPD exacerbation (Acute) Elevated troponin (Acute) [place] cardiac risk >20% in next 10 years (Acute) HLD (hyperlipidemia) (Acute) HTN (hypertension) (Acute) Hypercapnic respiratory failure (Acute) Leukocytosis (Acute) Obesity, morbid, BMI 50 or higher (Acute) Pneumonia (Acute) Other Procedures: cxr showed congestive changes. renal sono done no hydronephrosis Hospital Course: Patient is a 68 y/o female with past medical history of Morbid Obesity, COPD on home O2, CHF, LEONIDES, NSTEMI, DM, HTN, and HLD. Patient presented from PCP office for worsening SOB. On arrival to ED patient was hypoxic with SpO2 76% on RA. Patient eventually placed on Bipap and O2 improve to 93% but she then had change in mental status where she became obtunded and only responded to painful stimuli. Patient was intubated in ER and is now mechanically ventilated. Daughter at bedside stated that from 1 week ago patient developed productive cough but was refusing to go to PCP office to be seen. admitted for hypoxic resp failure intubated sedated now off the vent was in icu then telemetry floor g- iv lasix bid change to oral lasix bid now ready to go home got iv abx for possible CAP and now on oral abx Condition: Guarded - Instructions Referrals: Niko Valenzuela MD [Primary Care Provider] - 1 Week Disposition: VNS/HOME HEALTH CARE - Home Medications Comprehensive Discharge Medication List: Ambulatory Orders Albuterol Sulfate Inhaler - [Ventolin HFA Inhaler -] 2 inh PO Q4H PRN 03/27/18 Losartan Potassium 25 mg PO DAILY 03/27/18 metFORMIN HCL [Metformin HCl] 500 mg PO HS 03/27/18 Albuterol 0.083% Nebulizer Gisselle [Ventolin 0.083% Nebulizer Soln -] 1 neb NEB Q6H 04/06/18 Albuterol Sulfate [Proair Hfa] 2 puff IH Q6H PRN 04/06/18 Fluticasone Propionate [Flovent Diskus] 110 mcg IH BID 04/06/18 Fluticasone/Salmeterol [Advair 250-50 Diskus] 1 puff IH Q12H 04/06/18 Gabapentin 600 mg PO TID 04/06/18 Nebulizer [Airs Disposable Nebulizer] 04/06/18 Alcohol Antiseptic Pads [Alcohol Prep Pads] 1 each TP ASDIR #1 box 04/07/18 Aspirin [ASA -] 81 mg PO DAILY #30 tab.chew 04/07/18 Atorvastatin Ca [Lipitor] 80 mg PO HS 28 Days #28 tablet 04/07/18 Atorvastatin Ca [Lipitor] 80 mg PO HS 30 Days #30 tab 04/07/18 Furosemide [Lasix] 40 mg PO DAILY 28 Days #28 tablet 04/07/18 Insulin Glargine,Hum.rec.anlog [Basaglar Kwikpen U-100] 10 unit SQ DAILY #1 insuln.pen 04/07/18 Miscellaneous Medical Supply [Glucometer Device] 1 each .ROUTE ASDIR #1 kit Miscellaneous Medical Supply [Glucometer Test Strips #50] 1 each .ROUTE ASDIR # 1 box 04/07/18 Miscellaneous Medical Supply [Lancets] 1 each .ROUTE ASDIR #1 box 04/07/18
[2019-02-03] MEDS: ATORVASTATIN CA 40 MG TABLET (FP) PO SCH (21:36)
[2019-02-04] MEDS: FUROSEMIDE 20 MG TABLET (FP) PO SCH (05:44)
[2019-02-04] MEDS: GABAPENTIN 300 MG CAPSULE (FP) PO SCH ×3 (05:44→22:26)
[2019-02-04] MEDS: INSULIN SLIDING SCALE (NOVOLOG) 1 VIAL SQ SCH ×4 (06:18→22:27)
[2019-02-04 06:36] LABS: BLOOD UREA NITROGEN 53.1 mg/dL (7-18); CALCIUM 8.8 mg/dL (8.5-10.1); CREATININE 1.8 mg/dL (0.55-1.3); POTASSIUM 4.9 mmol/L (3.5-5.1)
--- NOTE | 2019-02-04 08:35 | PN ---
Progress Note, Physician Chief Complaint: Pt s A&Ox3; sitting up; no chest pain; + dyspnea on mild exertion.Mildly tender bilateral LEs below the knees. History of Present Illness: 68-year-old female with history of morbid obesity, COPD on home oxygen at 2 L, diastolic CHF (echo 04/10 with normal EF), HTN, DM, hyperlipidemia, now sent in by PCP Dr. Valenzuela for volume overload and increased work of breathing. Patient reports increasing dyspnea over the last 3 days, also reports having difficulty urinating (but self discontinued her Lasix). Denies any fevers or chills or chest pain or pressure, denies palpitations. Worsening orthopnea over the last 72 hours, has required diuresis in the past. - Current Medication List Current Medications: Active Medications Aspirin (Asa -) 81 mg PO DAILY [facility] Last Admin: 02/03/19 09:07 Dose: 81 mg Atorvastatin Calcium (Lipitor -) 40 mg PO HS [facility] Last Admin: 02/03/19 21:36 Dose: 40 mg Budesonide/Formoterol Fumarate (Symbicort 160/4.5mcg -) 2 puff IH BID [facility] Last Admin: 02/03/19 21:43 Dose: 2 puff Cefuroxime Axetil (Ceftin -) 500 mg PO BID [facility] Last Admin: 02/03/19 21:36 Dose: 500 mg Gabapentin (Neurontin -) 300 mg PO TID [facility] Last Admin: 02/04/19 05:44 Dose: 300 mg Heparin Sodium (Porcine) (Heparin -) 5,000 unit SQ BID [facility] Last Admin: 02/03/19 21:36 Dose: 5,000 unit Insulin Aspart (Novolog Vial Sliding Scale -) 1 vial SQ ACHS [facility]; Protocol Last Admin: 02/04/19 06:18 Dose: 2 units Losartan Potassium (Cozaar -) 50 mg PO DAILY [facility] Last Admin: 02/03/19 09:07 Dose: 50 mg Magnesium Oxide (Mag-Ox -) 400 mg PO DAILY [facility] Last Admin: 02/03/19 09:07 Dose: 400 mg Nystatin/Triamcinolone Acetonide (Mycolog Ii Cream -) 1 applic TP BID [facility] Last Admin: 02/03/19 21:43 Dose: 1 applic Pantoprazole Sodium (Protonix -) 40 mg PO DAILY [facility] Last Admin: 02/03/19 09:07 Dose: 40 mg Polyethylene Glycol (Miralax (For Daily Use) -) 17 gm PO BID [facility] Last Admin: 02/03/19 21:46 Dose: 17 gm Potassium Chloride (K-Dur -) 20 meq PO BID [facility] Last Admin: 02/03/19 21:35 Dose: 20 meq - Objective Vital Signs: Vital Signs Temperature 97.4 F L 02/04/19 06:00 Pulse Rate 121 H 02/04/19 06:00 Respiratory Rate 20 02/04/19 06:00 Blood Pressure 109/48 L 02/04/19 06:00 O2 Sat by Pulse Oximetry (%) 94 L 02/03/19 21:00 Constitutional: Yes: Obese Eyes: Yes: WNL HENT: Yes: WNL Neck: Yes: WNL Gastrointestinal: Yes: Abdomen, Obese ...Rectal Exam: Yes: Deferred Genitourinary: No: Anuria Breast(s): Yes: WNL Musculoskeletal: Yes: Joint Stiffness, Joint Swelling, Muscle Weakness Extremities: Yes: Cool Edema: No Integumentary: Yes: Erythema (mild bilateral LEs) Psychiatric: Yes: Alert, Oriented Labs: CBC, BMP 02/02/19 06:15 02/04/19 05:55 Abnormal Lab Results 02/04/19 02/05/19 17:30 06:15 Sodium 132 L 135 L Potassium 5.5 H Chloride 92 L 93 L Carbon Dioxide 35 H 36 H Anion Gap 6 L 6 L BUN 59.4 H 58.0 H Creatinine 1.9 H Random Glucose 141 H 148 H Albumin 2.7 L Problem List - Problems (1) COPD exacerbation Assessment/Plan: O2, bronchodilators, steroids per on site nurse. Code(s): J44.1 - CHRONIC OBSTRUCTIVE PULMONARY DISEASE W (ACUTE) EXACERBATION (2) HLD (hyperlipidemia) Assessment/Plan: on atorvastatin at home; elevated LDL. Now on atorvastatin 40 mg daily; f/u lipid profile serially. Code(s): E78.5 - HYPERLIPIDEMIA, UNSPECIFIED (3) HTN (hypertension) Assessment/Plan: On metoprolol, losartan as outpatient. Presently on losartan. Code(s): I10 - ESSENTIAL (PRIMARY) HYPERTENSION Qualifiers: Hypertension type: renovascular hypertension Qualified Code(s): I15.0 - Renovascular hypertension (4) Hypercapnic respiratory failure Assessment/Plan: F/u bronchodilators, antibiotics, O2, and steroids with on site nurse. The importance of f/u with pulmonaray clinic, meds, cardiac f/u, weight loss was emphasized. Code(s): J96.92 - RESPIRATORY FAILURE, UNSPECIFIED WITH HYPERCAPNIA Qualifiers: Chronicity: unspecified Qualified Code(s): J96.92 - Respiratory failure, unspecified with hypercapnia (5) Obesity, morbid, BMI 50 or higher Assessment/Plan: The imperative need to modify diet and decrease weight was discussed with pt. Dietary/diabetic consult would be of benefit. Code(s): E66.01 - MORBID (SEVERE) OBESITY DUE TO EXCESS CALORIES (6) Diastolic CHF Code(s): I50.30 - UNSPECIFIED DIASTOLIC (CONGESTIVE) HEART FAILURE (7) Diabetes Assessment/Plan: On Novolog. On losartan for HTN, CHF, renal protection with DM. Code(s): E11.9 - TYPE 2 DIABETES MELLITUS WITHOUT COMPLICATIONS (8) [place] cardiac risk >20% in next 10 years Assessment/Plan: Pt had stress MIBI 03/2018 that showed no ischemia; however, transient ischemic dilatation score was borderline elevated, which may be indicative of underlying CAD. ECHO: normal LVEF; abnormal diastolic compliance; borderline RVE; mild MR; trace TR. Once stable, will have further coronary artery evaluation (CTA or coronary angiogram) as an outpatient. Aggressive lipid-lowering; diet modification; weight loss; BP and glucose control. Code(s): Z91.89 - H PERSONAL RISK FACTORS, NOT ELSEWHERE CLASSIFIED (9) Acute on chronic diastolic (congestive) heart failure Assessment/Plan: Was on metoprolol and losartan as outpatient; presently on losartan.. F/u BUN/Cr, electrolytes, daily weight, and Is and Os. See "[place] Risk" regarding further coronary artery evaluation. Code(s): I50.33 - ACUTE ON CHRONIC DIASTOLIC (CONGESTIVE) HEART FAILURE
[2019-02-04] MEDS: POTASSIUM CHLORIDE TABS 10 MEQ TABLET.ER (FP) PO SCH (09:18)
[2019-02-04] MEDS: PANTOPRAZOLE 40 MG TABLET (FP) PO SCH (09:18)
[2019-02-04] MEDS: LOSARTAN POTASSIUM 50 MG TABLET (FP) PO SCH (09:18)
[2019-02-04] MEDS: HEPARIN NA (PORCINE) 5,000 UNITS/ML 1ML VIAL SQ SCH ×2 (09:18→22:26)
[2019-02-04] MEDS: ASPIRIN 81 MG CHEWABLE TABLETS PO SCH (09:18)
[2019-02-04] MEDS: BUDESONIDE/FORMETEROL FUMARATE 160/4.5 mcg INHALER IH SCH ×2 (09:22→22:25)
[2019-02-04] MEDS: POLYETHYLENE GLYCOL 3350 119 GM BTL PO SCH ×2 (09:22→22:27)
[2019-02-04] MEDS: MAGNESIUM OXIDE 400 MG TABLET (FP) PO SCH (09:22)
[2019-02-04] MEDS: NYSTATIN/TRIAMCINOLONE TOPICAL CREAM 15 GM TUBE TP SCH ×2 (09:22→22:27)
[2019-02-04] MEDS ORDERED: PT OWN MED DRAWER 7, Y5N ONE ×2 (10:20→21:12)
[2019-02-04] MEDS: CEFUROXIME AXETIL 500 MG TABLET PO SCH ×2 (10:50→22:26)
--- NOTE | 2019-02-04 11:19 | PN ---
Progress Note, Physician History of Present Illness: PULMONARY ALERT,OOB-CHAIR,COMFORTABLE,-SOB - Current Medication List Current Medications: Active Medications Aspirin (Asa -) 81 mg PO DAILY [facility] Last Admin: 02/04/19 09:18 Dose: 81 mg Atorvastatin Calcium (Lipitor -) 40 mg PO HS [facility] Last Admin: 02/03/19 21:36 Dose: 40 mg Budesonide/Formoterol Fumarate (Symbicort 160/4.5mcg -) 2 puff IH BID [facility] Last Admin: 02/04/19 09:22 Dose: 2 puff Cefuroxime Axetil (Ceftin -) 500 mg PO BID [facility] Last Admin: 02/04/19 10:50 Dose: 500 mg Gabapentin (Neurontin -) 300 mg PO TID [facility] Last Admin: 02/04/19 05:44 Dose: 300 mg Heparin Sodium (Porcine) (Heparin -) 5,000 unit SQ BID [facility] Last Admin: 02/04/19 09:18 Dose: 5,000 unit Insulin Aspart (Novolog Vial Sliding Scale -) 1 vial SQ [facility]; Protocol Last Admin: 02/04/19 06:18 Dose: 2 units Losartan Potassium (Cozaar -) 50 mg PO DAILY [facility] Last Admin: 02/04/19 09:18 Dose: 50 mg Magnesium Oxide (Mag-Ox -) 400 mg PO DAILY [facility] Last Admin: 02/04/19 09:22 Dose: 400 mg Nystatin/Triamcinolone Acetonide (Mycolog Ii Cream -) 1 applic TP BID [facility] Last Admin: 02/04/19 09:22 Dose: 1 applic Pantoprazole Sodium (Protonix -) 40 mg PO DAILY [facility] Last Admin: 02/04/19 09:18 Dose: 40 mg Polyethylene Glycol (Miralax (For Daily Use) -) 17 gm PO BID [facility] Last Admin: 02/04/19 09:22 Dose: Not Given Potassium Chloride (K-Dur -) 20 meq PO BID [facility] Last Admin: 02/04/19 09:18 Dose: 20 meq - Objective Vital Signs: Vital Signs Temperature 97.9 F 02/04/19 08:55 Pulse Rate 96 H 02/04/19 08:55 Respiratory Rate 18 02/04/19 08:55 Blood Pressure 108/57 L 02/04/19 08:55 O2 Sat by Pulse Oximetry (%) 94 L 02/03/19 21:00 Constitutional: Yes: Calm, Obese Eyes: Yes: WNL HENT: Yes: WNL Neck: Yes: WNL Cardiovascular: Yes: Regular Rate and Rhythm, S1, S2 Respiratory: Yes: Diminished Gastrointestinal: Yes: Normal Bowel Sounds, Abdomen, Obese Extremities: Yes: WNL Edema: Yes Labs: CBC, BMP 02/02/19 06:15 02/04/19 05:55 Laboratory Tests 02/02/19 12:26 ABG pH 7.47 H ABG pCO2 at Pt Temp 54.2 H ABG pO2 at Pt Temp 73.7 L ABG HCO3 38.6 H ABG O2 Sat (Measured) 95.2 ABG O2 Content 20.2 Oxygen Flow Rate 3l nasal Problem List - Problems (1) Acute on chronic diastolic (congestive) heart failure Code(s): I50.33 - ACUTE ON CHRONIC DIASTOLIC (CONGESTIVE) HEART FAILURE (2) CHF (congestive heart failure) Code(s): I50.9 - HEART FAILURE, UNSPECIFIED Qualifiers: Heart failure type: diastolic Heart failure chronicity: acute on chronic Qualified Code(s): I50.33 - Acute on chronic diastolic (congestive) heart failure (3) COPD exacerbation Code(s): J44.1 - CHRONIC OBSTRUCTIVE PULMONARY DISEASE W (ACUTE) EXACERBATION (4) HLD (hyperlipidemia) Code(s): E78.5 - HYPERLIPIDEMIA, UNSPECIFIED (5) HTN (hypertension) Code(s): I10 - ESSENTIAL (PRIMARY) HYPERTENSION Qualifiers: Hypertension type: renovascular hypertension Qualified Code(s): I15.0 - Renovascular hypertension (6) Hypercapnic respiratory failure Code(s): J96.92 - RESPIRATORY FAILURE, UNSPECIFIED WITH HYPERCAPNIA Qualifiers: Chronicity: unspecified Qualified Code(s): J96.92 - Respiratory failure, unspecified with hypercapnia (7) Acute on chronic respiratory failure with hypoxia and hypercapnia Code(s): J96.21 - ACUTE AND CHRONIC RESPIRATORY FAILURE WITH HYPOXIA; J96.22 - ACUTE AND CHRONIC RESPIRATORY FAILURE WITH HYPERCAPNIA (8) Diabetes Code(s): E11.9 - TYPE 2 DIABETES MELLITUS WITHOUT COMPLICATIONS (9) Acute on chronic respiratory failure with hypoxia and hypercapnia Code(s): J96.21 - ACUTE AND CHRONIC RESPIRATORY FAILURE WITH HYPOXIA; J96.22 - ACUTE AND CHRONIC RESPIRATORY FAILURE WITH HYPERCAPNIA Assessment/Plan ASSESSMENT AND PLAN: Acute on Chronic Hypoxic and Hypercapneic Respiratory Failure improving Acute on Chronic Diastolic Heart Failure improving Acute Kidney Injury Resolving Acute COPD Exacerbation Suspected CAP HTN DM Hyperlipidemia Obstructive Sleep Apnea - Lasix as needed - Daily weights - inhaled bronchodilators - VTE prophylaxis - NIPPV support QHS and PRN - Symbicort BID DR GUERRERO
--- NOTE | 2019-02-04 12:14 | PN ---
Progress Note, Physician Chief Complaint: patient is waiting to go home today awiaitng home service to check equipment at home - Current Medication List Current Medications: Active Medications Aspirin (Asa -) 81 mg PO DAILY [facility] Last Admin: 02/04/19 09:18 Dose: 81 mg Atorvastatin Calcium (Lipitor -) 40 mg PO HS [facility] Last Admin: 02/03/19 21:36 Dose: 40 mg Budesonide/Formoterol Fumarate (Symbicort 160/4.5mcg -) 2 puff IH BID [facility] Last Admin: 02/04/19 09:22 Dose: 2 puff Cefuroxime Axetil (Ceftin -) 500 mg PO BID [facility] Last Admin: 02/04/19 10:50 Dose: 500 mg Gabapentin (Neurontin -) 300 mg PO TID [facility] Last Admin: 02/04/19 05:44 Dose: 300 mg Heparin Sodium (Porcine) (Heparin -) 5,000 unit SQ BID [facility] Last Admin: 02/04/19 09:18 Dose: 5,000 unit Insulin Aspart (Novolog Vial Sliding Scale -) 1 vial SQ [facility]; Protocol Last Admin: 02/04/19 06:18 Dose: 2 units Losartan Potassium (Cozaar -) 50 mg PO DAILY [facility] Last Admin: 02/04/19 09:18 Dose: 50 mg Magnesium Oxide (Mag-Ox -) 400 mg PO DAILY [facility] Last Admin: 02/04/19 09:22 Dose: 400 mg Nystatin/Triamcinolone Acetonide (Mycolog Ii Cream -) 1 applic TP BID [facility] Last Admin: 02/04/19 09:22 Dose: 1 applic Pantoprazole Sodium (Protonix -) 40 mg PO DAILY [facility] Last Admin: 02/04/19 09:18 Dose: 40 mg Polyethylene Glycol (Miralax (For Daily Use) -) 17 gm PO BID [facility] Last Admin: 02/04/19 09:22 Dose: Not Given Potassium Chloride (K-Dur -) 20 meq PO BID [facility] Last Admin: 02/04/19 09:18 Dose: 20 meq - Objective Vital Signs: Vital Signs Temperature 97.9 F 02/04/19 08:55 Pulse Rate 96 H 02/04/19 08:55 Respiratory Rate 18 02/04/19 08:55 Blood Pressure 108/57 L 02/04/19 08:55 O2 Sat by Pulse Oximetry (%) 94 L 02/03/19 21:00 Constitutional: Yes: Calm Cardiovascular: Yes: Regular Rate and Rhythm, S1, S2 Respiratory: Yes: CTA Bilaterally Gastrointestinal: Yes: Normal Bowel Sounds, Soft Labs: CBC, BMP 02/02/19 06:15 02/04/19 05:55 Problem List - Problems (1) Hypercapnic respiratory failure Assessment/Plan: was in icu- s/p extubation now on nasal oxygen Code(s): J96.92 - RESPIRATORY FAILURE, UNSPECIFIED WITH HYPERCAPNIA Qualifiers: Chronicity: unspecified Qualified Code(s): J96.92 - Respiratory failure, unspecified with hypercapnia (2) Leukocytosis Assessment/Plan: iv abx possible pna change to oral ceftin ID on board Code(s): D72.829 - ELEVATED WHITE BLOOD CELL COUNT, UNSPECIFIED (3) CHF (congestive heart failure) Assessment/Plan: iv lasix bid change to oral lasix cardiology on board Code(s): I50.9 - HEART FAILURE, UNSPECIFIED Qualifiers: Heart failure type: diastolic Heart failure chronicity: acute on chronic Qualified Code(s): I50.33 - Acute on chronic diastolic (congestive) heart failure
--- NOTE | 2019-02-04 15:16 | PN ---
Progress Note, Physician History of Present Illness: Pt seen and examined at bedside. She is awake and alert. She feels that her breathing is improving. - Current Medication List Current Medications: Active Medications Aspirin (Asa -) 81 mg PO DAILY [facility] Last Admin: 02/04/19 09:18 Dose: 81 mg Atorvastatin Calcium (Lipitor -) 40 mg PO HS [facility] Last Admin: 02/03/19 21:36 Dose: 40 mg Budesonide/Formoterol Fumarate (Symbicort 160/4.5mcg -) 2 puff IH BID [facility] Last Admin: 02/04/19 09:22 Dose: 2 puff Cefuroxime Axetil (Ceftin -) 500 mg PO BID [facility] Last Admin: 02/04/19 10:50 Dose: 500 mg Gabapentin (Neurontin -) 300 mg PO TID [facility] Last Admin: 02/04/19 05:44 Dose: 300 mg Heparin Sodium (Porcine) (Heparin -) 5,000 unit SQ BID [facility] Last Admin: 02/04/19 09:18 Dose: 5,000 unit Insulin Aspart (Novolog Vial Sliding Scale -) 1 vial SQ [facility]; Protocol Last Admin: 02/04/19 12:13 Dose: 2 units Losartan Potassium (Cozaar -) 50 mg PO DAILY [facility] Last Admin: 02/04/19 09:18 Dose: 50 mg Magnesium Oxide (Mag-Ox -) 400 mg PO DAILY [facility] Last Admin: 02/04/19 09:22 Dose: 400 mg Nystatin/Triamcinolone Acetonide (Mycolog Ii Cream -) 1 applic TP BID [facility] Last Admin: 02/04/19 09:22 Dose: 1 applic Pantoprazole Sodium (Protonix -) 40 mg PO DAILY [facility] Last Admin: 02/04/19 09:18 Dose: 40 mg Polyethylene Glycol (Miralax (For Daily Use) -) 17 gm PO BID [facility] Last Admin: 02/04/19 09:22 Dose: Not Given Potassium Chloride (K-Dur -) 20 meq PO BID [facility] Last Admin: 02/04/19 09:18 Dose: 20 meq - Objective Vital Signs: Vital Signs Temperature 97.9 F 02/04/19 08:55 Pulse Rate 96 H 02/04/19 08:55 Respiratory Rate 18 02/04/19 08:55 Blood Pressure 108/57 L 02/04/19 08:55 O2 Sat by Pulse Oximetry (%) 94 L 02/03/19 21:00 Constitutional: Yes: Calm Eyes: Yes: Conjunctiva Clear HENT: Yes: Atraumatic Neck: Yes: Supple Cardiovascular: Yes: S1, S2 Respiratory: Yes: On Nasal O2 Gastrointestinal: Yes: Soft, Abdomen, Obese Genitourinary: Yes: Incontinence Musculoskeletal: Yes: WNL Edema: Yes Edema: LLE: Trace, RLE: Trace Integumentary: Yes: WNL Neurological: Yes: Oriented Psychiatric: Yes: Oriented Labs: CBC, BMP 02/02/19 06:15 02/04/19 05:55 Problem List - Problems (1) Acute on chronic diastolic (congestive) heart failure Code(s): I50.33 - ACUTE ON CHRONIC DIASTOLIC (CONGESTIVE) HEART FAILURE (2) CHF (congestive heart failure) Code(s): I50.9 - HEART FAILURE, UNSPECIFIED Qualifiers: Heart failure type: diastolic Heart failure chronicity: acute on chronic Qualified Code(s): I50.33 - Acute on chronic diastolic (congestive) heart failure Assessment/Plan Current Medications Generic Name Dose Route Start Last Admin Trade Name Brad PRN Reason Stop Dose Admin Aspirin 81 mg 02/01/19 10:00 02/04/19 09:18 Asa - PO 81 mg DAILY [facility] Administration Atorvastatin Calcium 40 mg 01/29/19 22:00 02/03/19 21:36 Lipitor - PO 40 mg HS [facility] Administration Budesonide/Formoterol Fumarate 2 puff 01/29/19 10:00 02/04/19 09:22 Symbicort 160/4.5mcg - IH 2 puff BID [facility] Administration Cefuroxime Axetil 500 mg 02/02/19 10:00 02/04/19 10:50 Ceftin - PO 500 mg BID [facility] Administration Gabapentin 300 mg 01/29/19 14:00 02/04/19 05:44 Neurontin - PO 300 mg TID [facility] Administration Heparin Sodium (Porcine) 5,000 unit 01/29/19 22:00 02/04/19 09:18 Heparin - SQ 5,000 unit BID [facility] Administration Insulin Aspart 1 vial 01/29/19 22:00 02/04/19 12:13 Novolog Vial Sliding Scale - SQ 2 units ACHS [facility] Administration Protocol Losartan Potassium 50 mg 02/01/19 16:45 02/04/19 09:18 Cozaar - PO 50 mg DAILY [facility] Administration Magnesium Oxide 400 mg 02/01/19 11:45 02/04/19 09:22 Mag-Ox - PO 400 mg DAILY [facility] Administration Nystatin/Triamcinolone Acetonide 1 applic 01/29/19 10:00 02/04/19 09:22 Mycolog Ii Cream - TP 1 applic BID [facility] Administration Pantoprazole Sodium 40 mg 01/29/19 10:00 02/04/19 09:18 Protonix - PO 40 mg DAILY [facility] Administration Polyethylene Glycol 17 gm 02/01/19 10:00 02/04/19 09:22 Miralax (For Daily Use) - PO Not Given BID [facility] Potassium Chloride 20 meq 02/01/19 22:00 02/04/19 09:18 K-Dur - PO 20 meq BID [facility] Administration Impression 1. JUANCARLOS 2. CHF diastolic 3. COPD on home o2 4. obesity 5. resp acidosis with met alkalosis 6. hyperkalemia Plan - repeat bmp not - check bladder scan - hold diuretics of renal function is worse - 2 gram sodium diet - discussed with medical team - monitor volume status
--- NOTE | 2019-02-04 15:17 | PN ---
Progress Note (short form) - Note Progress Note: patient labs noted and creatine elevated from 0.7 to 1.8 hold lasix stop potassium and magnesium cancel discharge Problem List - Problems (1) Hypercapnic respiratory failure Code(s): J96.92 - RESPIRATORY FAILURE, UNSPECIFIED WITH HYPERCAPNIA Qualifiers: Chronicity: unspecified Qualified Code(s): J96.92 - Respiratory failure, unspecified with hypercapnia (2) Leukocytosis Code(s): D72.829 - ELEVATED WHITE BLOOD CELL COUNT, UNSPECIFIED (3) CHF (congestive heart failure) Code(s): I50.9 - HEART FAILURE, UNSPECIFIED Qualifiers: Heart failure type: diastolic Heart failure chronicity: acute on chronic Qualified Code(s): I50.33 - Acute on chronic diastolic (congestive) heart failure
[2019-02-04] MEDS ORDERED: SODIUM CHLORIDE 250 ML IV STA (16:15)
[2019-02-04 18:42] LABS: BLOOD UREA NITROGEN 59.4 mg/dL (7-18); CALCIUM 9.2 mg/dL (8.5-10.1); CREATININE 1.9 mg/dL (0.55-1.3); POTASSIUM 5.5 mmol/L (3.5-5.1)
[2019-02-04] MEDS ORDERED: SODIUM ZIRCONIUM CYCLOSILICATE (LOKELMA) 5 GM PACKET PO ONE (19:00)
[2019-02-04] MEDS: ATORVASTATIN CA 40 MG TABLET (FP) PO SCH (22:26)
[2019-02-05] MEDS: GABAPENTIN 300 MG CAPSULE (FP) PO SCH ×3 (06:34→22:06)
[2019-02-05] MEDS: INSULIN SLIDING SCALE (NOVOLOG) 1 VIAL SQ SCH ×4 (06:34→22:07)
--- NOTE | 2019-02-05 06:41 | PN ---
Progress Note, Physician Chief Complaint: Respiratory failure CHF COPD Morbid obesity History of Present Illness: Discharge canceled due to rise in Cr Renal U/S unremarkable for renal disease, non obstructing renal calculi + thickened endometrium which can be followed with [employer] O/P - Current Medication List Current Medications: Active Medications Aspirin (Asa -) 81 mg PO DAILY [facility] Last Admin: 02/04/19 09:18 Dose: 81 mg Atorvastatin Calcium (Lipitor -) 40 mg PO HS [facility] Last Admin: 02/04/19 22:26 Dose: 40 mg Budesonide/Formoterol Fumarate (Symbicort 160/4.5mcg -) 2 puff IH BID [facility] Last Admin: 02/04/19 22:25 Dose: 2 puff Cefuroxime Axetil (Ceftin -) 500 mg PO BID [facility] Last Admin: 02/04/19 22:26 Dose: 500 mg Gabapentin (Neurontin -) 300 mg PO TID [facility] Last Admin: 02/05/19 06:34 Dose: 300 mg Heparin Sodium (Porcine) (Heparin -) 5,000 unit SQ BID [facility] Last Admin: 02/04/19 22:26 Dose: 5,000 unit Insulin Aspart (Novolog Vial Sliding Scale -) 1 vial SQ [facility]; Protocol Last Admin: 02/05/19 06:34 Dose: 2 units Losartan Potassium (Cozaar -) 50 mg PO DAILY [facility] Last Admin: 02/04/19 09:18 Dose: 50 mg Nystatin/Triamcinolone Acetonide (Mycolog Ii Cream -) 1 applic TP BID [facility] Last Admin: 02/04/19 22:27 Dose: 1 applic Pantoprazole Sodium (Protonix -) 40 mg PO DAILY [facility] Last Admin: 02/04/19 09:18 Dose: 40 mg Polyethylene Glycol (Miralax (For Daily Use) -) 17 gm PO BID [facility] Last Admin: 02/04/19 22:27 Dose: Not Given - Objective Vital Signs: Vital Signs Temperature 98.1 F 02/05/19 01:58 Pulse Rate 75 02/05/19 01:58 Respiratory Rate 18 02/05/19 01:58 Blood Pressure 121/57 L 02/05/19 01:58 O2 Sat by Pulse Oximetry (%) 96 02/04/19 21:57 Constitutional: Yes: Well Nourished, No Distress, Calm, Obese Cardiovascular: Yes: Regular Rate and Rhythm Respiratory: Yes: Regular Gastrointestinal: Yes: WNL, Normal Bowel Sounds, Soft, Abdomen, Obese Genitourinary: Yes: WNL Musculoskeletal: Yes: Muscle Weakness Extremities: Yes: WNL Edema: No Peripheral Pulses WNL: Yes Neurological: Yes: Alert, Oriented Psychiatric: Yes: Alert, Oriented Labs: CBC, BMP 02/02/19 06:15 02/04/19 17:30 Problem List - Problems (1) CHF (congestive heart failure) Assessment/Plan: -Furosemide d/c due sudden to rise in Cr -Non compliant o/p -Cardiology+ nephrology on board -monitor I&O's Problems reviewed: Yes Code(s): I50.9 - HEART FAILURE, UNSPECIFIED Qualifiers: Heart failure type: diastolic Heart failure chronicity: acute on chronic Qualified Code(s): I50.33 - Acute on chronic diastolic (congestive) heart failure (2) COPD exacerbation Assessment/Plan: -Pulmonary consult -IV abx switched to PO abx -Bronchodilators -Symbicort Problems reviewed: Yes Code(s): J44.1 - CHRONIC OBSTRUCTIVE PULMONARY DISEASE W (ACUTE) EXACERBATION (3) Elevated troponin Assessment/Plan: -2/2 to demand ischemia -trending down -cardiology on board Problems reviewed: Yes Code(s): R79.89 - OTHER SPECIFIED ABNORMAL FINDINGS OF BLOOD CHEMISTRY (4) HTN (hypertension) Assessment/Plan: -Losartan on hold 2/2 sudden rise in Cr -Cardiology on board Problems reviewed: Yes Code(s): I10 - ESSENTIAL (PRIMARY) HYPERTENSION Qualifiers: Hypertension type: renovascular hypertension Qualified Code(s): I15.0 - Renovascular hypertension (5) Hypercapnic respiratory failure Assessment/Plan: -Pulmonary on board -Bronchodilators -legionella negative -Switched to PO abx on 02/02/19 -ID on board Problems reviewed: Yes Code(s): J96.92 - RESPIRATORY FAILURE, UNSPECIFIED WITH HYPERCAPNIA Qualifiers: Chronicity: unspecified Qualified Code(s): J96.92 - Respiratory failure, unspecified with hypercapnia (6) Obesity, morbid, BMI 50 or higher Problems reviewed: Yes Code(s): E66.01 - MORBID (SEVERE) OBESITY DUE TO EXCESS CALORIES (7) Diabetes Assessment/Plan: -A1c at 7.5 -BGM AC HS -ISS -Diabetic low sodium diet Problems reviewed: Yes Code(s): E11.9 - TYPE 2 DIABETES MELLITUS WITHOUT COMPLICATIONS (8) JUANCARLOS (acute kidney injury) Assessment/Plan: -Losartan on hold -repeat labs yesterday, no improvement in Cr -Hold ceftin as well -Repeat labs today Cr trending down -monitor trend closely -Renal U/S unremarkable for any renal disease Problems reviewed: Yes Code(s): N17.9 - ACUTE KIDNEY FAILURE, UNSPECIFIED Assessment/Plan see problem list D/C planning once cleared by cardiology
[2019-02-05 07:34] LABS: ALBUMIN 2.7 g/dl (3.4-5.0); BILIRUBIN,TOTAL 0.7 mg/dL (0.2-1); CALCIUM 8.9 mg/dL (8.5-10.1); CREATININE 1.3 mg/dL (0.55-1.3); MAGNESIUM 2.2 mg/dL (1.8-2.4); POTASSIUM 4.8 mmol/L (3.5-5.1); TOT PROT 6.7 g/dl (6.4-8.2)
[2019-02-05] MEDS ORDERED: PT OWN MED DRAWER 7, Y5N ONE ×2 (10:18→21:58)
[2019-02-05] MEDS: ASPIRIN 81 MG CHEWABLE TABLETS PO SCH (10:23)
[2019-02-05] MEDS: POLYETHYLENE GLYCOL 3350 119 GM BTL PO SCH ×2 (10:23→22:06)
[2019-02-05] MEDS: CEFUROXIME AXETIL 500 MG TABLET PO SCH ×2 (10:23→22:06)
[2019-02-05] MEDS: PANTOPRAZOLE 40 MG TABLET (FP) PO SCH (10:23)
[2019-02-05] MEDS: HEPARIN NA (PORCINE) 5,000 UNITS/ML 1ML VIAL SQ SCH ×2 (10:23→22:05)
[2019-02-05] MEDS: NYSTATIN/TRIAMCINOLONE TOPICAL CREAM 15 GM TUBE TP SCH ×2 (10:23→22:06)
[2019-02-05] MEDS: BUDESONIDE/FORMETEROL FUMARATE 160/4.5 mcg INHALER IH SCH ×2 (10:24→22:07)
--- NOTE | 2019-02-05 11:01 | PN ---
Progress Note, Physician History of Present Illness: 68-year-old female with history of morbid obesity, COPD on home oxygen at 2 L, diastolic CHF (echo 04/10 with normal EF), HTN, DM, hyperlipidemia, now sent in by PCP Dr. Valenzuela for volume overload and increased work of breathing. Patient reports increasing dyspnea over the last 3 days, also reports having difficulty urinating (but self discontinued her Lasix). Denies any fevers or chills or chest pain or pressure, denies palpitations. Worsening orthopnea over the last 72 hours, has required diuresis in the past. - Current Medication List Current Medications: Active Medications Aspirin (Asa -) 81 mg PO DAILY [facility] Last Admin: 02/05/19 10:23 Dose: 81 mg Atorvastatin Calcium (Lipitor -) 40 mg PO HS [facility] Last Admin: 02/04/19 22:26 Dose: 40 mg Budesonide/Formoterol Fumarate (Symbicort 160/4.5mcg -) 2 puff IH BID [facility] Last Admin: 02/05/19 10:24 Dose: 2 puff Cefuroxime Axetil (Ceftin -) 500 mg PO BID [facility] Last Admin: 02/05/19 10:23 Dose: 500 mg Gabapentin (Neurontin -) 300 mg PO TID [facility] Last Admin: 02/05/19 06:34 Dose: 300 mg Heparin Sodium (Porcine) (Heparin -) 5,000 unit SQ BID [facility] Last Admin: 02/05/19 10:23 Dose: 5,000 unit Insulin Aspart (Novolog Vial Sliding Scale -) 1 vial SQ ACHS [facility]; Protocol Last Admin: 02/05/19 06:34 Dose: 2 units Losartan Potassium (Cozaar -) 50 mg PO DAILY [facility] Last Admin: 02/04/19 09:18 Dose: 50 mg Nystatin/Triamcinolone Acetonide (Mycolog Ii Cream -) 1 applic TP BID [facility] Last Admin: 02/05/19 10:23 Dose: 1 applic Pantoprazole Sodium (Protonix -) 40 mg PO DAILY [facility] Last Admin: 02/05/19 10:23 Dose: 40 mg Polyethylene Glycol (Miralax (For Daily Use) -) 17 gm PO BID [facility] Last Admin: 02/05/19 10:23 Dose: Not Given - Objective Vital Signs: Vital Signs Temperature 98.3 F 02/05/19 10:00 Pulse Rate 95 H 02/05/19 10:00 Respiratory Rate 20 02/05/19 10:00 Blood Pressure 108/48 L 02/05/19 10:00 O2 Sat by Pulse Oximetry (%) 95 02/05/19 10:00 Constitutional: Yes: Calm Eyes: Yes: WNL Labs: CBC, BMP 02/02/19 06:15 02/05/19 06:15 Problem List - Problems (1) COPD exacerbation Assessment/Plan: O2, bronchodilators, steroids, sleep apnea Rx per green meat packer. Code(s): J44.1 - CHRONIC OBSTRUCTIVE PULMONARY DISEASE W (ACUTE) EXACERBATION (2) HLD (hyperlipidemia) Assessment/Plan: on atorvastatin at home; elevated LDL. Now on atorvastatin 40 mg daily; f/u lipid profile serially (repeat several weeks after starting this dose: as outpatient). Code(s): E78.5 - HYPERLIPIDEMIA, UNSPECIFIED (3) HTN (hypertension) Assessment/Plan: On metoprolol, losartan as outpatient. Presently on losartan (COPD ? asthma; normal LVEF; no signs of arrhythmia: may hold metoprolol for now). Avoid diuretics, if possible: elevated BUN/Cr. Code(s): I10 - ESSENTIAL (PRIMARY) HYPERTENSION Qualifiers: Hypertension type: renovascular hypertension Qualified Code(s): I15.0 - Renovascular hypertension (4) Hypercapnic respiratory failure Code(s): J96.92 - RESPIRATORY FAILURE, UNSPECIFIED WITH HYPERCAPNIA Qualifiers: Chronicity: unspecified Qualified Code(s): J96.92 - Respiratory failure, unspecified with hypercapnia (5) Obesity, morbid, BMI 50 or higher Code(s): E66.01 - MORBID (SEVERE) OBESITY DUE TO EXCESS CALORIES (6) Diastolic CHF Code(s): I50.30 - UNSPECIFIED DIASTOLIC (CONGESTIVE) HEART FAILURE (7) Diabetes Code(s): E11.9 - TYPE 2 DIABETES MELLITUS WITHOUT COMPLICATIONS (8) Lenora cardiac risk >20% in next 10 years Code(s): Z91.89 - OTH PERSONAL RISK FACTORS, NOT ELSEWHERE CLASSIFIED (9) Acute on chronic diastolic (congestive) heart failure Assessment/Plan: Was on metoprolol and losartan as outpatient; presently on losartan.. F/u BUN/Cr, electrolytes, daily weight, and Is and Os. See "Lenora Risk" regarding further coronary artery evaluation. Code(s): I50.33 - ACUTE ON CHRONIC DIASTOLIC (CONGESTIVE) HEART FAILURE (10) Dehydration Assessment/Plan: avoid diuretics; encourage PO fluids. Code(s): E86.0 - DEHYDRATION
--- NOTE | 2019-02-05 11:21 | PN ---
Progress Note, Physician History of Present Illness: PULMONARY ALERT,NO DISTRESS,-CP,-SOB - Current Medication List Current Medications: Active Medications Aspirin (Asa -) 81 mg PO DAILY [facility] Last Admin: 02/05/19 10:23 Dose: 81 mg Atorvastatin Calcium (Lipitor -) 40 mg PO HS [facility] Last Admin: 02/04/19 22:26 Dose: 40 mg Budesonide/Formoterol Fumarate (Symbicort 160/4.5mcg -) 2 puff IH BID [facility] Last Admin: 02/05/19 10:24 Dose: 2 puff Cefuroxime Axetil (Ceftin -) 500 mg PO BID [facility] Last Admin: 02/05/19 10:23 Dose: 500 mg Gabapentin (Neurontin -) 300 mg PO TID [facility] Last Admin: 02/05/19 06:34 Dose: 300 mg Heparin Sodium (Porcine) (Heparin -) 5,000 unit SQ BID [facility] Last Admin: 02/05/19 10:23 Dose: 5,000 unit Insulin Aspart (Novolog Vial Sliding Scale -) 1 vial SQ [facility]; Protocol Last Admin: 02/05/19 06:34 Dose: 2 units Losartan Potassium (Cozaar -) 50 mg PO DAILY [facility] Last Admin: 02/04/19 09:18 Dose: 50 mg Nystatin/Triamcinolone Acetonide (Mycolog Ii Cream -) 1 applic TP BID [facility] Last Admin: 02/05/19 10:23 Dose: 1 applic Pantoprazole Sodium (Protonix -) 40 mg PO DAILY [facility] Last Admin: 02/05/19 10:23 Dose: 40 mg Polyethylene Glycol (Miralax (For Daily Use) -) 17 gm PO BID [facility] Last Admin: 02/05/19 10:23 Dose: Not Given - Objective Vital Signs: Vital Signs Temperature 98.3 F 02/05/19 10:00 Pulse Rate 95 H 02/05/19 10:00 Respiratory Rate 20 02/05/19 10:00 Blood Pressure 108/48 L 02/05/19 10:00 O2 Sat by Pulse Oximetry (%) 95 02/05/19 10:00 Constitutional: Yes: Calm, Obese Eyes: Yes: WNL HENT: Yes: WNL Neck: Yes: WNL Cardiovascular: Yes: Regular Rate and Rhythm, S1, S2 Respiratory: Yes: Diminished Gastrointestinal: Yes: Normal Bowel Sounds, Soft Extremities: Yes: WNL Edema: Yes Labs: CBC, BMP 02/05/19 06:15 Problem List - Problems (1) Acute on chronic diastolic (congestive) heart failure Code(s): I50.33 - ACUTE ON CHRONIC DIASTOLIC (CONGESTIVE) HEART FAILURE (2) CHF (congestive heart failure) Code(s): I50.9 - HEART FAILURE, UNSPECIFIED Qualifiers: Heart failure type: diastolic Heart failure chronicity: acute on chronic Qualified Code(s): I50.33 - Acute on chronic diastolic (congestive) heart failure (3) COPD exacerbation Code(s): J44.1 - CHRONIC OBSTRUCTIVE PULMONARY DISEASE W (ACUTE) EXACERBATION (4) HLD (hyperlipidemia) Code(s): E78.5 - HYPERLIPIDEMIA, UNSPECIFIED (5) HTN (hypertension) Code(s): I10 - ESSENTIAL (PRIMARY) HYPERTENSION Qualifiers: Hypertension type: renovascular hypertension Qualified Code(s): I15.0 - Renovascular hypertension (6) Hypercapnic respiratory failure Code(s): J96.92 - RESPIRATORY FAILURE, UNSPECIFIED WITH HYPERCAPNIA Qualifiers: Chronicity: unspecified Qualified Code(s): J96.92 - Respiratory failure, unspecified with hypercapnia (7) Acute on chronic respiratory failure with hypoxia and hypercapnia Code(s): J96.21 - ACUTE AND CHRONIC RESPIRATORY FAILURE WITH HYPOXIA; J96.22 - ACUTE AND CHRONIC RESPIRATORY FAILURE WITH HYPERCAPNIA (8) Diabetes Code(s): E11.9 - TYPE 2 DIABETES MELLITUS WITHOUT COMPLICATIONS (9) Acute on chronic respiratory failure with hypoxia and hypercapnia Code(s): J96.21 - ACUTE AND CHRONIC RESPIRATORY FAILURE WITH HYPOXIA; J96.22 - ACUTE AND CHRONIC RESPIRATORY FAILURE WITH HYPERCAPNIA Assessment/Plan ASSESSMENT AND PLAN: Acute on Chronic Hypoxic and Hypercapneic Respiratory Failure improved Acute on Chronic Diastolic Heart Failure improved Acute Kidney Injury Resolving Acute COPD Exacerbation Suspected CAP HTN DM Hyperlipidemia Obstructive Sleep Apnea - Lasix as needed - inhaled bronchodilators - VTE prophylaxis - Symbicort BID - pfts outpatient - sleep studies outpatient DR GUERRERO
--- NOTE | 2019-02-05 15:39 | PN ---
Progress Note, Physician History of Present Illness: Pt seen and examined at bedside. She is awake and alert. She feels that her breathing is comfortable. - Current Medication List Current Medications: Active Medications Aspirin (Asa -) 81 mg PO DAILY [facility] Last Admin: 02/05/19 10:23 Dose: 81 mg Atorvastatin Calcium (Lipitor -) 40 mg PO HS [facility] Last Admin: 02/04/19 22:26 Dose: 40 mg Budesonide/Formoterol Fumarate (Symbicort 160/4.5mcg -) 2 puff IH BID [facility] Last Admin: 02/05/19 10:24 Dose: 2 puff Cefuroxime Axetil (Ceftin -) 500 mg PO BID [facility] Last Admin: 02/05/19 10:23 Dose: 500 mg Gabapentin (Neurontin -) 300 mg PO TID [facility] Last Admin: 02/05/19 13:08 Dose: 300 mg Heparin Sodium (Porcine) (Heparin -) 5,000 unit SQ BID [facility] Last Admin: 02/05/19 10:23 Dose: 5,000 unit Insulin Aspart (Novolog Vial Sliding Scale -) 1 vial SQ [facility]; Protocol Last Admin: 02/05/19 12:09 Dose: 2 units Losartan Potassium (Cozaar -) 50 mg PO DAILY [facility] Last Admin: 02/04/19 09:18 Dose: 50 mg Nystatin/Triamcinolone Acetonide (Mycolog Ii Cream -) 1 applic TP BID [facility] Last Admin: 02/05/19 10:23 Dose: 1 applic Pantoprazole Sodium (Protonix -) 40 mg PO DAILY [facility] Last Admin: 02/05/19 10:23 Dose: 40 mg Polyethylene Glycol (Miralax (For Daily Use) -) 17 gm PO BID [facility] Last Admin: 02/05/19 10:23 Dose: Not Given - Objective Vital Signs: Vital Signs Temperature 98.3 F 02/05/19 10:00 Pulse Rate 95 H 02/05/19 10:00 Respiratory Rate 20 02/05/19 10:00 Blood Pressure 108/48 L 02/05/19 10:00 O2 Sat by Pulse Oximetry (%) 95 02/05/19 10:00 Constitutional: Yes: Calm Eyes: Yes: Conjunctiva Clear HENT: Yes: Atraumatic Neck: Yes: Supple Cardiovascular: Yes: S1, S2 Respiratory: Yes: CTA Bilaterally, On Nasal O2 Gastrointestinal: Yes: Soft, Abdomen, Obese Genitourinary: Yes: Incontinence Edema: Yes (obese extremities) Edema: LLE: Trace, RLE: Trace Neurological: Yes: Oriented Psychiatric: Yes: Oriented Labs: CBC, BMP 02/02/19 06:15 02/05/19 06:15 Problem List - Problems (1) Acute on chronic diastolic (congestive) heart failure Code(s): I50.33 - ACUTE ON CHRONIC DIASTOLIC (CONGESTIVE) HEART FAILURE (2) CHF (congestive heart failure) Code(s): I50.9 - HEART FAILURE, UNSPECIFIED Qualifiers: Heart failure type: diastolic Heart failure chronicity: acute on chronic Qualified Code(s): I50.33 - Acute on chronic diastolic (congestive) heart failure Assessment/Plan Current Medications Generic Name Dose Route Start Last Admin Trade Name Freq PRN Reason Stop Dose Admin Aspirin 81 mg 02/01/19 10:00 02/05/19 10:23 Asa - PO 81 mg DAILY [facility] Administration Atorvastatin Calcium 40 mg 01/29/19 22:00 02/04/19 22:26 Lipitor - PO 40 mg HS [facility] Administration Budesonide/Formoterol Fumarate 2 puff 01/29/19 10:00 02/05/19 10:24 Symbicort 160/4.5mcg - IH 2 puff BID [facility] Administration Cefuroxime Axetil 500 mg 02/02/19 10:00 02/05/19 10:23 Ceftin - PO 500 mg BID [facility] Administration Gabapentin 300 mg 01/29/19 14:00 02/05/19 13:08 Neurontin - PO 300 mg TID [facility] Administration Heparin Sodium (Porcine) 5,000 unit 01/29/19 22:00 02/05/19 10:23 Heparin - SQ 5,000 unit BID [facility] Administration Insulin Aspart 1 vial 01/29/19 22:00 02/05/19 12:09 Novolog Vial Sliding Scale - SQ 2 units ACHS [facility] Administration Protocol Losartan Potassium 50 mg 02/01/19 16:45 02/04/19 09:18 Cozaar - PO 50 mg DAILY [facility] Administration Nystatin/Triamcinolone Acetonide 1 applic 01/29/19 10:00 02/05/19 10:23 Mycolog Ii Cream - TP 1 applic BID [facility] Administration Pantoprazole Sodium 40 mg 01/29/19 10:00 02/05/19 10:23 Protonix - PO 40 mg DAILY [facility] Administration Polyethylene Glycol 17 gm 02/01/19 10:00 02/05/19 10:23 Miralax (For Daily Use) - PO Not Given BID [facility] Impression 1. JUANCARLOS 2. CHF diastolic 3. COPD on home o2 4. obesity 5. resp acidosis with met alkalosis 6. hyperkalemia 7. endometrial thickening on ultrasound Plan - renal function improving - lasix on hold - repeat labs in am - will resume lower dose lasix likely tomorrow - will need engineer automated equipment eval for endometrial thickening - monitor volume status
[2019-02-05] MEDS: ATORVASTATIN CA 40 MG TABLET (FP) PO SCH (22:06)
[2019-02-06] MEDS: GABAPENTIN 300 MG CAPSULE (FP) PO SCH ×2 (06:04→13:13)
[2019-02-06] MEDS: INSULIN SLIDING SCALE (NOVOLOG) 1 VIAL SQ SCH ×2 (06:37→12:31)
--- NOTE | 2019-02-06 07:32 | DS ---
Physical Examination Vital Signs: Vital Signs Temperature 97.9 F 02/06/19 06:00 Pulse Rate 74 02/06/19 06:00 Respiratory Rate 18 02/06/19 06:00 Blood Pressure 100/46 L 02/06/19 06:00 O2 Sat by Pulse Oximetry (%) 97 02/06/19 00:26 Findings/Remarks: Patient is a 68 y/o female with past medical history of Morbid Obesity, COPD on home O2, CHF, LEONIDES, NSTEMI, DM, HTN, and HLD. Patient presented from PCP office for worsening SOB. On arrival to ED patient was hypoxic with SpO2 76% on RA. Patient eventually placed on Bipap and O2 improve to 93% but she then had change in mental status where she became obtunded and only responded to painful stimuli. Patient was intubated in ER and is now mechanically ventilated. Daughter at bedside stated that from 1 week ago patient developed productive cough but was refusing to go to PCP office to be seen. admitted for hypoxic resp failure intubated sedated now off the vent was in icu then telemetry floor g- iv lasix bid change to oral lasix bid now ready to go home got iv abx for possible CAP and now on oral abx Labs: CBC, BMP 02/02/19 06:15 Discharge Summary Problems reviewed: Yes Reason For Visit: ACUTE ON CHRONIC CHF, PNEUMONIA, HYPERCAPNIA Current Active Problems JUANCARLOS (acute kidney injury) (Acute) Acute on chronic diastolic (congestive) heart failure (Acute) Acute on chronic respiratory failure with hypoxia and hypercapnia (Acute) CHF (congestive heart failure) (Acute) COPD exacerbation (Acute) Dehydration (Acute) Elevated troponin (Acute) [place] cardiac risk >20% in next 10 years (Acute) HLD (hyperlipidemia) (Acute) HTN (hypertension) (Acute) Hypercapnic respiratory failure (Acute) Leukocytosis (Acute) Obesity, morbid, BMI 50 or higher (Acute) Pneumonia (Acute) Hospital Course: Patient is a 68 y/o female with past medical history of Morbid Obesity, COPD on home O2, CHF, LEONIDES, NSTEMI, DM, HTN, and HLD. Patient presented from PCP office for worsening SOB. On arrival to ED patient was hypoxic with SpO2 76% on RA. Patient eventually placed on Bipap and O2 improve to 93% but she then had change in mental status where she became obtunded and only responded to painful stimuli. Patient was intubated in ER and is now mechanically ventilated. Daughter at bedside stated that from 1 week ago patient developed productive cough but was refusing to go to PCP office to be seen. admitted for hypoxic resp failure intubated sedated now off the vent was in icu then telemetry floor g- iv lasix bid change to oral lasix bid now ready to go home got iv abx for possible CAP and now on oral abx Condition: Stable - Instructions Referrals: Senia Solorzano MD [Staff Physician] - Niko Valenzuela MD [Primary Care Provider] - 1 Week Disposition: VNS/HOME HEALTH CARE - Home Medications Comprehensive Discharge Medication List: Ambulatory Orders Nebulizer [Airs Disposable Nebulizer] 04/06/18 Alcohol Antiseptic Pads [Alcohol Prep Pads] 1 each TP ASDIR #1 box 04/07/18 Aspirin [ASA -] 81 mg PO DAILY #30 tab.chew 04/07/18 Insulin Glargine,Hum.rec.anlog [Basaglar Kwikpen U-100] 10 unit SQ DAILY #1 insuln.pen 04/07/18 Miscellaneous Medical Supply [Glucometer Device] 1 each .ROUTE ASDIR #1 kit Miscellaneous Medical Supply [Glucometer Test Strips #50] 1 each .ROUTE ASDIR # 1 box 04/07/18 Miscellaneous Medical Supply [Lancets] 1 each .ROUTE ASDIR #1 box 04/07/18 Atorvastatin Ca [Lipitor] 40 mg PO HS tablet 02/03/19 Budesonide/Formeterol Fumarate [SYMBICORT 160/4.5mcg -] 2 puff IH BID #1 inhaler 02/03/19 Cefuroxime Axetil [Ceftin -] 500 mg PO BID #10 tablet 02/03/19 Gabapentin [Neurontin -] 300 mg PO TID #30 capsule 02/03/19 Losartan Potassium [Cozaar -] 50 mg PO DAILY #30 tablet 02/03/19 Nystatin/Triamcinolone Top Cr [Mycolog II -] 1 applic TP BID applic 02/03/19 Pantoprazole Sodium [Protonix -] 40 mg PO DAILY tablet.ec 02/03/19 Potassium Chloride [K-Dur -] 20 meq PO BID #10 tablet.er 02/03/19 Albuterol 0.083% Nebulizer Gisselle [Ventolin 0.083% Nebulizer Soln -] 1 neb NEB Q6H #30 amp 02/04/19 Albuterol Sulfate [Proair Hfa] 2 puff IH Q6H PRN #1 hfa.aer.ad 02/04/19 Atorvastatin Ca [Lipitor] 40 mg PO HS #30 tablet 02/04/19 Cefuroxime Axetil [Ceftin -] 500 mg PO Q12H #10 tablet 02/04/19 Losartan Potassium [Cozaar -] 50 mg PO DAILY #30 tablet 02/04/19
[2019-02-06 07:44] LABS: ALBUMIN 2.7 g/dl (3.4-5.0); BILIRUBIN,TOTAL 0.6 mg/dL (0.2-1); BLOOD UREA NITROGEN 40.1 mg/dL (7-18); CALCIUM 9.1 mg/dL (8.5-10.1); CREATININE 0.9 mg/dL (0.55-1.3); POTASSIUM 4.5 mmol/L (3.5-5.1); TOT PROT 6.6 g/dl (6.4-8.2)
--- NOTE | 2019-02-06 10:02 | PN ---
Progress Note, Physician History of Present Illness: pulmonary alert,comfortable,-resp distress ,oob-chair - Current Medication List Current Medications: Active Medications Aspirin (Asa -) 81 mg PO DAILY [facility] Last Admin: 02/05/19 10:23 Dose: 81 mg Atorvastatin Calcium (Lipitor -) 40 mg PO HS [facility] Last Admin: 02/05/19 22:06 Dose: 40 mg Budesonide/Formoterol Fumarate (Symbicort 160/4.5mcg -) 2 puff IH BID [facility] Last Admin: 02/05/19 22:07 Dose: 2 puff Cefuroxime Axetil (Ceftin -) 500 mg PO BID [facility] Last Admin: 02/05/19 22:06 Dose: 500 mg Gabapentin (Neurontin -) 300 mg PO TID [facility] Last Admin: 02/06/19 06:04 Dose: 300 mg Heparin Sodium (Porcine) (Heparin -) 5,000 unit SQ BID [facility] Last Admin: 02/05/19 22:05 Dose: 5,000 unit Insulin Aspart (Novolog Vial Sliding Scale -) 1 vial SQ [facility]; Protocol Last Admin: 02/06/19 06:37 Dose: 2 units Losartan Potassium (Cozaar -) 50 mg PO DAILY [facility] Last Admin: 02/04/19 09:18 Dose: 50 mg Nystatin/Triamcinolone Acetonide (Mycolog Ii Cream -) 1 applic TP BID [facility] Last Admin: 02/05/19 22:06 Dose: 1 applic Pantoprazole Sodium (Protonix -) 40 mg PO DAILY [facility] Last Admin: 02/05/19 10:23 Dose: 40 mg Polyethylene Glycol (Miralax (For Daily Use) -) 17 gm PO BID [facility] Last Admin: 02/05/19 22:06 Dose: Not Given - Objective Vital Signs: Vital Signs Temperature 97.9 F 02/06/19 06:00 Pulse Rate 74 02/06/19 06:00 Respiratory Rate 18 02/06/19 06:00 Blood Pressure 100/46 L 02/06/19 06:00 O2 Sat by Pulse Oximetry (%) 97 02/06/19 00:26 Constitutional: Yes: Well Nourished, Calm, Obese Eyes: Yes: WNL HENT: Yes: WNL Neck: Yes: WNL Cardiovascular: Yes: Regular Rate and Rhythm, S1, S2 Respiratory: Yes: Diminished Gastrointestinal: Yes: Normal Bowel Sounds, Soft Extremities: Yes: WNL Edema: No Labs: CBC, BMP 02/06/19 05:30 Problem List - Problems (1) Acute on chronic diastolic (congestive) heart failure Code(s): I50.33 - ACUTE ON CHRONIC DIASTOLIC (CONGESTIVE) HEART FAILURE (2) CHF (congestive heart failure) Code(s): I50.9 - HEART FAILURE, UNSPECIFIED Qualifiers: Heart failure type: diastolic Heart failure chronicity: acute on chronic Qualified Code(s): I50.33 - Acute on chronic diastolic (congestive) heart failure (3) COPD exacerbation Code(s): J44.1 - CHRONIC OBSTRUCTIVE PULMONARY DISEASE W (ACUTE) EXACERBATION (4) HLD (hyperlipidemia) Code(s): E78.5 - HYPERLIPIDEMIA, UNSPECIFIED (5) HTN (hypertension) Code(s): I10 - ESSENTIAL (PRIMARY) HYPERTENSION Qualifiers: Hypertension type: renovascular hypertension Qualified Code(s): I15.0 - Renovascular hypertension (6) Hypercapnic respiratory failure Code(s): J96.92 - RESPIRATORY FAILURE, UNSPECIFIED WITH HYPERCAPNIA Qualifiers: Chronicity: unspecified Qualified Code(s): J96.92 - Respiratory failure, unspecified with hypercapnia (7) Acute on chronic respiratory failure with hypoxia and hypercapnia Code(s): J96.21 - ACUTE AND CHRONIC RESPIRATORY FAILURE WITH HYPOXIA; J96.22 - ACUTE AND CHRONIC RESPIRATORY FAILURE WITH HYPERCAPNIA (8) Diabetes Code(s): E11.9 - TYPE 2 DIABETES MELLITUS WITHOUT COMPLICATIONS (9) Acute on chronic respiratory failure with hypoxia and hypercapnia Code(s): J96.21 - ACUTE AND CHRONIC RESPIRATORY FAILURE WITH HYPOXIA; J96.22 - ACUTE AND CHRONIC RESPIRATORY FAILURE WITH HYPERCAPNIA Assessment/Plan ASSESSMENT AND PLAN: Acute on Chronic Hypoxic and Hypercapneic Respiratory Failure improved Acute on Chronic Diastolic Heart Failure improved Acute Kidney Injury Resolving Acute COPD Exacerbation Suspected CAP HTN DM Hyperlipidemia Obstructive Sleep Apnea - inhaled bronchodilators - VTE prophylaxis - Symbicort BID - pfts outpatient - sleep studies outpatient DR GUERRERO
[2019-02-06] MEDS: PANTOPRAZOLE 40 MG TABLET (FP) PO SCH (10:24)
[2019-02-06] MEDS: ASPIRIN 81 MG CHEWABLE TABLETS PO SCH (10:24)
[2019-02-06] MEDS: HEPARIN NA (PORCINE) 5,000 UNITS/ML 1ML VIAL SQ SCH (10:24)
[2019-02-06] MEDS: POLYETHYLENE GLYCOL 3350 119 GM BTL PO SCH (10:25)
[2019-02-06] MEDS: NYSTATIN/TRIAMCINOLONE TOPICAL CREAM 15 GM TUBE TP SCH (10:25)
[2019-02-06] MEDS: CEFUROXIME AXETIL 500 MG TABLET PO SCH (10:25)
[2019-02-06] MEDS: BUDESONIDE/FORMETEROL FUMARATE 160/4.5 mcg INHALER IH SCH (10:26)
[2019-02-06 12:14] VITALS: BP 108/59; PULSE 97; TEMP 98.2
--- NOTE | 2019-02-06 12:57 | PN ---
Progress Note, Physician Chief Complaint: Respiratory failure CHF COPD Morbid obesity History of Present Illness: Cr now normal Renal U/S unremarkable for renal disease, non obstructing renal calculi + thickened endometrium which can be followed with [employer] O/P - Current Medication List Current Medications: Active Medications Aspirin (Asa -) 81 mg PO DAILY [facility] Last Admin: 02/06/19 10:24 Dose: 81 mg Atorvastatin Calcium (Lipitor -) 40 mg PO HS [facility] Last Admin: 02/05/19 22:06 Dose: 40 mg Budesonide/Formoterol Fumarate (Symbicort 160/4.5mcg -) 2 puff IH BID [facility] Last Admin: 02/06/19 10:26 Dose: 2 puff Cefuroxime Axetil (Ceftin -) 500 mg PO BID [facility] Last Admin: 02/06/19 10:25 Dose: 500 mg Gabapentin (Neurontin -) 300 mg PO TID [facility] Last Admin: 02/06/19 06:04 Dose: 300 mg Heparin Sodium (Porcine) (Heparin -) 5,000 unit SQ BID [facility] Last Admin: 02/06/19 10:24 Dose: 5,000 unit Insulin Aspart (Novolog Vial Sliding Scale -) 1 vial SQ [facility]; Protocol Last Admin: 02/06/19 12:31 Dose: 2 units Losartan Potassium (Cozaar -) 50 mg PO DAILY [facility] Last Admin: 02/04/19 09:18 Dose: 50 mg Nystatin/Triamcinolone Acetonide (Mycolog Ii Cream -) 1 applic TP BID [facility] Last Admin: 02/06/19 10:25 Dose: 1 applic Pantoprazole Sodium (Protonix -) 40 mg PO DAILY [facility] Last Admin: 02/06/19 10:24 Dose: 40 mg Polyethylene Glycol (Miralax (For Daily Use) -) 17 gm PO BID [facility] Last Admin: 02/06/19 10:25 Dose: Not Given - Objective Vital Signs: Vital Signs Temperature 98.2 F 02/06/19 10:00 Pulse Rate 97 H 02/06/19 10:00 Respiratory Rate 18 02/06/19 10:00 Blood Pressure 108/59 L 02/06/19 10:00 O2 Sat by Pulse Oximetry (%) 97 02/06/19 00:26 Constitutional: Yes: Well Nourished, No Distress, Calm, Obese Cardiovascular: Yes: Regular Rate and Rhythm Respiratory: Yes: Regular, CTA Bilaterally Gastrointestinal: Yes: Normal Bowel Sounds, Soft, Abdomen, Obese Genitourinary: Yes: WNL Musculoskeletal: Yes: Muscle Weakness Extremities: Yes: WNL Edema: No Peripheral Pulses WNL: Yes Neurological: Yes: Alert, Oriented Psychiatric: Yes: Alert, Oriented Labs: CBC, BMP 02/02/19 06:15 02/06/19 05:30 Problem List - Problems (1) CHF (congestive heart failure) Assessment/Plan: -Restart Furosemide at 40 mg po daily -Non compliant o/p -Cardiology+ nephrology on board -monitor I&O's Problems reviewed: Yes Code(s): I50.9 - HEART FAILURE, UNSPECIFIED Qualifiers: Heart failure type: diastolic Heart failure chronicity: acute on chronic Qualified Code(s): I50.33 - Acute on chronic diastolic (congestive) heart failure (2) COPD exacerbation Assessment/Plan: -Pulmonary consult -PO abx -Bronchodilators -Symbicort Problems reviewed: Yes Code(s): J44.1 - CHRONIC OBSTRUCTIVE PULMONARY DISEASE W (ACUTE) EXACERBATION (3) Elevated troponin Assessment/Plan: -2/2 to demand ischemia -trending down -cardiology on board Problems reviewed: Yes Code(s): R79.89 - OTHER SPECIFIED ABNORMAL FINDINGS OF BLOOD CHEMISTRY (4) HTN (hypertension) Assessment/Plan: -Losartan -Start Furosemide 40 mg po daily -Cardiology on board Problems reviewed: Yes Code(s): I10 - ESSENTIAL (PRIMARY) HYPERTENSION Qualifiers: Hypertension type: renovascular hypertension Qualified Code(s): I15.0 - Renovascular hypertension (5) Hypercapnic respiratory failure Assessment/Plan: -Pulmonary on board -Bronchodilators -legionella negative -Switched to PO abx on 02/02/19 -ID on board Problems reviewed: Yes Code(s): J96.92 - RESPIRATORY FAILURE, UNSPECIFIED WITH HYPERCAPNIA Qualifiers: Chronicity: unspecified Qualified Code(s): J96.92 - Respiratory failure, unspecified with hypercapnia (6) Obesity, morbid, BMI 50 or higher Code(s): E66.01 - MORBID (SEVERE) OBESITY DUE TO EXCESS CALORIES (7) Diabetes Assessment/Plan: -A1c at 7.5 -BGM AC HS -ISS -Diabetic low sodium diet Problems reviewed: Yes Code(s): E11.9 - TYPE 2 DIABETES MELLITUS WITHOUT COMPLICATIONS (8) JUANCARLOS (acute kidney injury) Assessment/Plan: -Losartan -restart urosemide 40 mg po daily -Repeat labs today Cr trending down -monitor trend closely o/p -Renal U/S unremarkable for any renal disease Problems reviewed: Yes Code(s): N17.9 - ACUTE KIDNEY FAILURE, UNSPECIFIED Assessment/Plan see problem list
--- NOTE | 2019-02-06 15:26 | PN ---
Progress Note, Physician History of Present Illness: Pt seen and examined at bedside. She is awake and alert. She denies shortness of breath. - Current Medication List Current Medications: Active Medications Aspirin (Asa -) 81 mg PO DAILY [facility] Last Admin: 02/06/19 10:24 Dose: 81 mg Atorvastatin Calcium (Lipitor -) 40 mg PO HS [facility] Last Admin: 02/05/19 22:06 Dose: 40 mg Budesonide/Formoterol Fumarate (Symbicort 160/4.5mcg -) 2 puff IH BID [facility] Last Admin: 02/06/19 10:26 Dose: 2 puff Cefuroxime Axetil (Ceftin -) 500 mg PO BID [facility] Last Admin: 02/06/19 10:25 Dose: 500 mg Gabapentin (Neurontin -) 300 mg PO TID [facility] Last Admin: 02/06/19 13:13 Dose: 300 mg Heparin Sodium (Porcine) (Heparin -) 5,000 unit SQ BID [facility] Last Admin: 02/06/19 10:24 Dose: 5,000 unit Insulin Aspart (Novolog Vial Sliding Scale -) 1 vial SQ [facility]; Protocol Last Admin: 02/06/19 12:31 Dose: 2 units Losartan Potassium (Cozaar -) 50 mg PO DAILY [facility] Last Admin: 02/04/19 09:18 Dose: 50 mg Nystatin/Triamcinolone Acetonide (Mycolog Ii Cream -) 1 applic TP BID [facility] Last Admin: 02/06/19 10:25 Dose: 1 applic Pantoprazole Sodium (Protonix -) 40 mg PO DAILY [facility] Last Admin: 02/06/19 10:24 Dose: 40 mg Polyethylene Glycol (Miralax (For Daily Use) -) 17 gm PO BID [facility] Last Admin: 02/06/19 10:25 Dose: Not Given - Objective Vital Signs: Vital Signs Temperature 98.2 F 02/06/19 10:00 Pulse Rate 97 H 02/06/19 10:00 Respiratory Rate 18 02/06/19 10:00 Blood Pressure 108/59 L 02/06/19 10:00 O2 Sat by Pulse Oximetry (%) 97 02/06/19 00:26 Constitutional: Yes: Calm Eyes: Yes: Conjunctiva Clear HENT: Yes: Atraumatic Neck: Yes: Supple Cardiovascular: Yes: S1, S2 Respiratory: Yes: CTA Bilaterally Gastrointestinal: Yes: Normal Bowel Sounds, Soft Genitourinary: Yes: WNL Musculoskeletal: Yes: WNL Edema: Yes (obese) Edema: LLE: Trace, RLE: Trace Integumentary: Yes: WNL Neurological: Yes: Oriented Psychiatric: Yes: Oriented Labs: CBC, BMP 02/02/19 06:15 02/06/19 05:30 Problem List - Problems (1) Acute on chronic diastolic (congestive) heart failure Code(s): I50.33 - ACUTE ON CHRONIC DIASTOLIC (CONGESTIVE) HEART FAILURE (2) CHF (congestive heart failure) Code(s): I50.9 - HEART FAILURE, UNSPECIFIED Qualifiers: Heart failure type: diastolic Heart failure chronicity: acute on chronic Qualified Code(s): I50.33 - Acute on chronic diastolic (congestive) heart failure Assessment/Plan Current Medications Generic Name Dose Route Start Last Admin Trade Name Freq PRN Reason Stop Dose Admin Aspirin 81 mg 02/01/19 10:00 02/06/19 10:24 Asa - PO 81 mg DAILY [facility] Administration Atorvastatin Calcium 40 mg 01/29/19 22:00 02/05/19 22:06 Lipitor - PO 40 mg HS [facility] Administration Budesonide/Formoterol Fumarate 2 puff 01/29/19 10:00 02/06/19 10:26 Symbicort 160/4.5mcg - IH 2 puff BID [facility] Administration Cefuroxime Axetil 500 mg 02/02/19 10:00 02/06/19 10:25 Ceftin - PO 500 mg BID [facility] Administration Gabapentin 300 mg 01/29/19 14:00 02/06/19 13:13 Neurontin - PO 300 mg TID DONTA Administration Heparin Sodium (Porcine) 5,000 unit 01/29/19 22:00 02/06/19 10:24 Heparin - SQ 5,000 unit BID [facility] Administration Insulin Aspart 1 vial 01/29/19 22:00 02/06/19 12:31 Novolog Vial Sliding Scale - SQ 2 units ACHS DONTA Administration Protocol Losartan Potassium 50 mg 02/01/19 16:45 02/04/19 09:18 Cozaar - PO 50 mg DAILY [facility] Administration Nystatin/Triamcinolone Acetonide 1 applic 01/29/19 10:00 02/06/19 10:25 Mycolog Ii Cream - TP 1 applic BID [facility] Administration Pantoprazole Sodium 40 mg 01/29/19 10:00 02/06/19 10:24 Protonix - PO 40 mg DAILY DONTA Administration Polyethylene Glycol 17 gm 02/01/19 10:00 02/06/19 10:25 Miralax (For Daily Use) - PO Not Given BID DONTA Impression 1. JUANCARLOS 2. CHF diastolic 3. COPD on home o2 4. obesity 5. resp acidosis with met alkalosis 6. hyperkalemia 7. endometrial thickening on ultrasound Plan - can resume po lasix - will need outpt follow up - will need smoke eater eval for endometrial thickening - volume status stable - discussed diet and sodium intake with pt
== END 2019-02-06 17:56 | disposition home health service (06) | DRG 208 ==
LOC: JER 11:44 → JERBED 16:09 → JICU 18:37 → J4S 01-29 13:24
PROVIDERS: ADMIT Family Medicine; ATTEND Family Medicine
PROC: 5A1945Z Respiratory Ventilation, 24-96 Consecutive Hours (ICD-10-PCS; principal; 2019-01-25)
PROC: 0BH17EZ Insertion of Endotracheal Airway into Trachea, Via Natural or Artificial Opening (ICD-10-PCS; 2019-01-25)
DX: J96.21 Acute and chronic respiratory failure with hypoxia (principal); I50.33 Acute on chronic diastolic (congestive) heart failure; J18.9 Pneumonia, unspecified organism; J44.1 Chronic obstructive pulmonary disease with (acute) exacerbation; N17.9 Acute kidney failure, unspecified; E87.3 Alkalosis; E87.4 Mixed disorder of acid-base balance; I11.0 Hypertensive heart disease with heart failure; J96.22 Acute and chronic respiratory failure with hypercapnia; E66.01 Morbid (severe) obesity due to excess calories; J44.9 Chronic obstructive pulmonary disease, unspecified; Z99.81 Dependence on supplemental oxygen; G47.33 Obstructive sleep apnea (adult) (pediatric); I25.2 Old myocardial infarction; E11.9 Type 2 diabetes mellitus without complications; E78.5 Hyperlipidemia, unspecified; Z68.39 Body mass index [BMI] 39.0-39.9, adult; Z91.14 Patient's other noncompliance with medication regimen; Z87.891 Personal history of nicotine dependence; Z79.4 Long term (current) use of insulin; E87.5 Hyperkalemia; R93.89 Abnormal findings on diagnostic imaging of other specified body structures; E86.0 Dehydration; N20.0 Calculus of kidney
CPT/HCPCS: 36415; 36600; 71045-TC-FY; 76775-TC; 76856-TC; 80048; 80053; 80061; 81003; 82375; 82550; 82553; 82565; 82803; 82962; 83036; 83050; 83605; 83721; 83735; 83880; 84100; 84300; 84443; 84484; 85025; 85027; 87040; 87070; 87086; 87205; 87804; 87807; 87899; 90670; 93005; 93010; 93306-TC; 94002; 94640; 94660; 97116-GP; 97162-GP; 99285-25; J1644; Q2036

== ENCOUNTER 2019-11-20 16:24 | Inpatient (IN) | payer MEDICARE, OTHER ==
--- NOTE | 2019-11-20 17:52 | PDOC ---
History of Present Illness - General Chief Complaint: Edema Stated Complaint: Swollen Leg Time Seen by Provider: 11/20/19 17:25 History Source: Patient Exam Limitations: No Limitations - History of Present Illness Initial Comments: 11/20/19 17:52 PCP: Dr. Ly HPI: 69 yo F pmh HTN, HLD, CHF, DM, morbid obesity, presenting with 2 weeks of swelling, increased SOB, warm red swollen legs. Patient visited her PCP and was given PO antibiotics 2 weeks ago, redness and warmth improved but recurred when antibiotic course was completed. She also endorses decreased exercise tolerance, only able to walk across the room before becoming short of breath and fatigued, unable to lay flat at night without difficulty breathing so she sleeps at an incline. She takes Lasix 40mg daily for her edema. Denies fevers, chills, vomiting (intermittent nausea), denies difficulty breathing at rest, chest pain, headache, pain with ambulation. States that there is a tightness in her lower abdomen as she has been gaining weight and noticed redness that hsa expanded up the left thigh and across her lower abdomen. Past History - Travel History Traveled outside of the country in the last 30 days: No Close contact w/someone who was outside of country & ill: No - Medical History Allergies/Adverse Reactions: Allergies Allergy/AdvReac Type Severity Reaction Status Date / Time No Known Allergies Allergy Verified 11/20/19 16:32 Home Medications: Ambulatory Orders Nebulizer [Airs Disposable Nebulizer] 04/06/18 Alcohol Antiseptic Pads [Alcohol Prep Pads] 1 each TP ASDIR #1 box 04/07/18 Aspirin [ASA -] 81 mg PO DAILY #30 tab.chew 04/07/18 Insulin Glargine,Hum.rec.anlog [Basaglar Kwikpen U-100] 10 unit SQ DAILY #1 insuln.pen 04/07/18 Miscellaneous Medical Supply [Glucometer Device] 1 each .ROUTE ASDIR #1 kit 04/07/18 Miscellaneous Medical Supply [Glucometer Test Strips #50] 1 each .ROUTE ASDIR #1 box 04/07/18 Miscellaneous Medical Supply [Lancets] 1 each .ROUTE ASDIR #1 box 04/07/18 Atorvastatin Ca [Lipitor] 40 mg PO HS tablet 02/03/19 Budesonide/Formeterol Fumarate [SYMBICORT 160/4.5mcg -] 2 puff IH BID #1 inhaler 02/03/19 Cefuroxime Axetil [Ceftin -] 500 mg PO BID #10 tablet 02/03/19 Gabapentin [Neurontin -] 300 mg PO TID #30 capsule 02/03/19 Losartan Potassium [Cozaar -] 50 mg PO DAILY #30 tablet 02/03/19 Nystatin/Triamcinolone Top Cr [Mycolog II -] 1 applic TP BID applic 02/03/19 Pantoprazole Sodium [Protonix -] 40 mg PO DAILY tablet.ec 02/03/19 Potassium Chloride [K-Dur -] 20 meq PO BID #10 tablet.er 02/03/19 Albuterol 0.083% Nebulizer Gisselle [Ventolin 0.083% Nebulizer Soln -] 1 neb NEB Q6H #30 amp 02/04/19 Albuterol Sulfate [Proair Hfa] 2 puff IH Q6H PRN #1 hfa.aer.ad 02/04/19 Atorvastatin Ca [Lipitor] 40 mg PO HS #30 tablet 02/04/19 Cefuroxime Axetil [Ceftin -] 500 mg PO Q12H #10 tablet 02/04/19 Losartan Potassium [Cozaar -] 50 mg PO DAILY #30 tablet 02/04/19 Albuterol 0.083% Nebulizer Gisselle [Ventolin 0.083% Nebulizer Soln -] 1 neb NEB Q4H #1 box 02/06/19 Budesonide/Formeterol Fumarate [SYMBICORT 160/4.5mcg -] 2 inh PO BID #1 cannister 02/06/19 Furosemide [Lasix -] 40 mg PO DAILY #30 tablet 02/06/19 Gabapentin 300 mg PO TID #90 capsule 02/06/19 Polyethylene Glycol 3350 [Miralax 119 gm Btl -] 17 gm PO BID #1 bottle 02/06/19 Potassium Chloride [K-Dur -] 10 meq PO DAILY #30 tablet.er 02/06/19 Asthma: Yes Cardiac Disorders: Yes (CHF) COPD: Yes CHF: Yes Diabetes: Yes GI Disorders: Yes (gerd) HTN: Yes Hypercholesterolemia: Yes Other medical history: o2 dependent - Immunization History Immunization Up to Date: Yes - Psycho-Social/Smoking History Smoking History: Never smoked Have you smoked in the past 12 months: No - Substance Abuse Hx (Audit-C & DAST Scrn) How often the patient has a drink containing alcohol: Never Score: In Men: 4 or > Positive; In Women: 3 or > Positive: 0 Screen Result (Pos requires Nsg. Audit-10AR): Negative Review of Systems - Review of Systems Able to Perform ROS?: Yes Is the patient limited Urdu proficient: Yes Constitutional: No: Chills, Fever, Weakness HEENTM: No: Recent change in vision, Hearing Loss, Throat Pain Respiratory: Yes: Orthopnea, Shortness of Breath, SOB with Exertion. No: Cough, SOB at Rest, Wheezing, Productive cough, Hemoptysis Cardiac (ROS): Yes: Edema. No: Chest Pain, Irregular Heart Rate, Lightheadedness, Palpitations, Syncope, Chest Tightness ABD/GI: No: Constipated, Diarrhea, Nausea, Vomiting : No: Burning, Dysuria, Frequency Musculoskeletal: No: Muscle Pain, Muscle Weakness, Neck Pain Integumentary: No: Bruising, Pruritus, Rash Neurological: No: Headache, Numbness, Tingling, Weakness Psychiatric: No: Anxiety, Depression, Stressors, Change in Appetite Endocrine: Yes: Change in Weight. No: Increased Thirst, Increased Urine Hematologic/Lymphatic: No: Anemia, Blood Clots, Easy Bleeding All Other Systems: Reviewed and Negative *Physical Exam - Vital Signs Last Vital Signs Temp Pulse Resp BP Pulse Ox 97 F L 67 18 129/56 L 95 11/20/19 16:28 11/20/19 16:28 11/20/19 16:28 11/20/19 16:28 11/20/19 16:28 - Physical Exam 11/20/19 18:03 Vitals reviewed, AFVSS GEN: Morbidly obese, appears stated age, NAD, comfortable. AAOx3. HEENT: NCAT, EOMI, PERRL. Sclera anicteric, non-injected. No facial asymmetry. Moist mucous membranes. Normal voice. Trachea midline. CV: RRR, S1/S2, no murmurs / rubs / gallops appreciated. LUNG: CTABL, normal work of breathing. No wheezes, rales, rhonchi. No cough. Speaking full sentences. GI: Soft, NTND, +BS, no guarding, no rebound. No masses. EXTREMITIES: Morbidly obese, 2+ distal pulses. No clubbing / cyanosis. +Edema. No gross deformity in any extremity. SKIN: Warm, dry, non-jaundiced. +Bilateral LE Warmth, erythema, swelling, no crepitus / fluctuance. PSYCH: Normal mood and affect. Cooperative and appropriate. NEURO: CN grossly intact. Moving all extremities well. Normal strength and sensation grossly. ED Treatment Course - LABORATORY CBC & Chemistry Diagram: 11/20/19 20:10 11/20/19 20:10 Medical Decision Making - Medical Decision Making 11/20/19 18:06 69 yo F pmh HTN, HLD, CHF, DM, morbid obesity, presenting with 2 weeks of swelling, increased SOB, warm red swollen legs. History concerning for failure of outpatient antibiotics, minimal constitutional symptoms, increasing weight, swelling, dyspnea on exertion. Exam notable for stable vitals, swelling, signs of cellulitis vs erysipelas on both legs and left thigh / lower abdomen. Concerning for CHF exacerbation / volume overload with concurrent concern for skin / soft tissue infection. - CBC, CMP, Coags, Cardiac profile, BNP - CXR, EKG - Lasix 40 mg IV - Cefazolin (given activity against streptococci and MSSA) Anticipated admission 11/20/19 19:44 EKbpm, NSR, normal axis, QTc 458, flattened t waves diffusely, low voltage QRS CXR limited film due to poor inspiratory effort and body habitus Phlebotomy coming for blood draw, 24G in left hand for access 11/20/19 21:42 Elevated BNP, mild leukocytosis Consistent with dx of cellulitis with concurrent CHF exacerbation Dispo: Med/Surg Discharge - Discharge Information Problems reviewed: Yes Clinical Impression/Diagnosis: CHF (congestive heart failure) Qualifiers: Heart failure type: unspecified Heart failure chronicity: acute on chronic Qualified Code(s): I50.9 - Heart failure, unspecified Cellulitis Qualifiers: Site of cellulitis: extremity Site of cellulitis of extremity: lower extremity Laterality: unspecified laterality Qualified Code(s): L03.119 - Cellulitis of unspecified part of limb Condition: Guarded - Admission Yes - Follow up/Referral - Patient Discharge Instructions - Post Discharge Activity
--- NOTE | 2019-11-20 18:32 | PDOC ---
Documentation entered by Luisa Donnelly SCRIBE, acting as scribe for Nasreen Rolle MD. Nasreen Rolle MD: This documentation has been prepared by the joyeAndrzej Sydney, SCRIBE, under my direction and personally reviewed by me in its entirety. I confirm that the documentation accurately reflects all work, treatment, procedures, and medical decision making performed by me. Attending Attestation - Resident Resident Name: lAexJosé Miguel - ED Attending Attestation I have performed the following: I have examined & evaluated the patient, The case was reviewed & discussed with the resident, I agree w/resident's findings & plan, Exceptions are as noted - HPI HPI: 11/20/19 18:35 Patient is a 69 year old female with a significant past medical history of HTN, HLD, CHF, DM, morbid obesity who presents to the ED with two weeks progressively worsening shortness of breath and bilateral leg swelling. As per patient, she is unable to tolerate daily exercise without becoming short of breath and endorses being unable to lay flat while sleeping. Patient states she takes 40 mg daily for her edema. She reports being prescribed antibiotics by her PCP 2 weeks ago with some relief of her symptoms upon completion of the medication, but her symptoms still persist, prompting her arrival the ED. Denies headache, fever, chills, nausea, vomiting, diarrhea, or urinary changes. Allergies: NKDA PCP: Dr. Inman - Physicial Exam PE: GENERAL: Awake, alert, and fully oriented, in no acute distress. Morbidly obese HEAD: No signs of trauma EYES: PERRLA, EOMI, sclera anicteric, conjunctiva clear ENT: Auricles normal inspection, hearing grossly normal, nares patent, oropharynx clear without exudates. Moist mucosa NECK: Normal ROM, supple, no lymphadenopathy, JVD, or masses LUNGS: Breath sounds equal, clear to auscultation bilaterally. No wheezes, and no crackles HEART: Regular rate and rhythm, normal S1 and S2, no murmurs, rubs or gallops ABDOMEN: Soft, nontender, normoactive bowel sounds. No guarding, no rebound. No masses EXTREMITIES: Normal range of motion, 4+ pitting edema to BLE. No clubbing or cyanosis. No cords or tenderness NEUROLOGICAL: Cranial nerves II through XII grossly intact. Normal speech, normal gait. Motor and sensation intact SKIN: Warm, dry, normal turgor. +Erythema, warmth to BLE extending up the thighs into the lower abdomen. - Medical Decision Making Pt with morbid obesity, BLE pitting edema, poor circulation presenting with BLE cellulitis extending up into the abdomen. Will send labs, give abx, plan for admission. Discharge - Discharge Information Problems reviewed: Yes Clinical Impression/Diagnosis: CHF (congestive heart failure) Qualifiers: Heart failure type: unspecified Heart failure chronicity: acute on chronic Qualified Code(s): I50.9 - Heart failure, unspecified Cellulitis Qualifiers: Site of cellulitis: extremity Site of cellulitis of extremity: lower extremity Laterality: unspecified laterality Qualified Code(s): L03.119 - Cellulitis of unspecified part of limb Condition: Guarded - Follow up/Referral - Patient Discharge Instructions - Post Discharge Activity
[2019-11-20] MEDS ORDERED: CEFAZOLIN 1 GM in DEXTROSE 5%-WATER - 50 ML IVPB ONE (19:46)
[2019-11-20] MEDS ORDERED: CEFAZOLIN 1 GM/D5W 1 GM/50 ML BAG ONE (19:54)
[2019-11-20 20:43] LABS: INR 1.08 (0.83-1.09); PROTHROMBIN TIME (PATIENT) 12.7 SEC (9.7-13.0)
[2019-11-20 21:00] LABS: ALBUMIN 3.3 g/dl (3.4-5.0); ALK PHOS 68 U/L (45-117); ANION GAP 2 MMOL/L (8-16); BILIRUBIN,TOTAL 0.5 mg/dL (0.2-1); BLOOD UREA NITROGEN 13.2 mg/dL (7-18); CALCIUM 8.4 mg/dL (8.5-10.1); CHLORIDE 102 mmol/L (98-107); CO2 38 mmol/L (21-32); CREATININE 0.8 mg/dL (0.55-1.3); GLUCOSE,RANDOM 105 mg/dL (74-106); N-TERMINAL BNP 2471.8 pg/ml (5-125); POTASSIUM 4.2 mmol/L (3.5-5.1); SGOT/AST 20 U/L (15-37); SGPT/ALT 24 U/L (13-61); SODIUM 142 mmol/L (136-145); TOT PROT 7.9 g/dl (6.4-8.2)
[2019-11-20] MEDS ORDERED: FUROSEMIDE 40 MG/4 ML INJECTABLE VIAL IVPUSH ONE (21:27)
[2019-11-20 21:31] LABS: BASO % 0.6 % (0-2.0); EOS % 0.9 % (0-4.5); LYMPH % 11.2 % (8-40); MCH 25.3 pg (25.7-33.7); MEAN CELL VOLUME 84.2 fl (80-96); MONO % 8.8 % (3.8-10.2); NEUT % 78.5 % (42.8-82.8); RBC 5.36 M/mm3 (3.60-5.2); RDW 17.4 % (11.6-15.6); WHITE BLOOD COUNT 11.3 K/mm3 (4.0-10.0)
[2019-11-20 21:33] LABS: MEAN PLT VOLUME 9.7 fl (7.5-11.1); PLATELET COUNT 192 K/MM3 (134-434)
[2019-11-20 21:34] LABS: HEMOGLOBIN 13.3 GM/dL (10.7-15.3)
[2019-11-20] MEDS ORDERED: FUROSEMIDE 40 MG/4 ML INJECTABLE VIAL ONE (21:41)
--- NOTE | 2019-11-20 22:12 | PN ---
Teaching Attending Note Name of Resident: Felipe Mcintyre ATTENDING PHYSICIAN STATEMENT I saw and evaluated the patient. I reviewed the resident's note and discussed the case with the resident. I agree with the resident's findings and plan as documented. SUBJECTIVE: Patient is a 69 year old woman with a PMH of HTN, HLD, HFpEF, NIDDM and Morbid o besity who presents to the ER with two weeks progressively worsening shortness of breath and bilateral leg swelling. Patient reports she is unable to tolerate daily exercise without becoming short of breath and is unable to lay flat while sleeping. Patient states she takes 40 mg daily for her edema. She reports being prescribed antibiotics by her PCP 2 weeks ago with some relief of her symptoms upon completion of the medication, but her symptoms still persist. Has had some nausea but denies chest pain, abdominal pain, headache, palpitations, dizziness, fever, chills, vomiting, diarrhea, constipation, dysuria, frequency, urgency, melena, hematochezia or hematuria. Denies alcohol, tobacco or illicit drug use. No sick contacts or recent travels. Family history is unremarkable. OBJECTIVE: Somnolent but arousable Vital Signs Period Temp Pulse Resp BP Sys/Garner Pulse Ox Last 24 Hr 97 F 67-89 18-20 129-143/56-72 95-99 HEENT: No Jaundice, eye redness or discharge, PERRLA, EOMI. Normocephalic, atraumatic. External ears are normal and hearing is grossly intact. No nasal discharge. Neck: Supple, nontender. No palpable adenopathy or thyromegaly. No JVD Chest: Good effort. Diminished breath sounds. Heart: Regular. No S3, rub or murmur Abdomen: Not distended, soft, nontender and no HSM. No rebound or guarding. Normal bowel sounds. Ext: Peripheral pulses intact. Chronic stasis changes. Leg edema with erythema and warm to touch. Skin: Warm and dry. No petechiae, rash or ecchymosis. Neuro: Somnolent but arousable. Psych: Unable to assess. Home Medications Medication Instructions Recorded Nebulizer [Airs Disposable 04/06/18 Nebulizer] Alcohol Antiseptic Pads [Alcohol 1 each TP ASDIR #1 box 04/07/18 Prep Pads] Aspirin [ASA -] 81 mg PO DAILY #30 tab.chew 04/07/18 Insulin Glargine,Hum.rec.anlog 10 unit SQ DAILY #1 insuln.pen 04/07/18 [Basaglar Kwikpen U-100] Miscellaneous Medical Supply 1 each .ROUTE ASDIR #1 kit 04/07/18 [Glucometer Device] Miscellaneous Medical Supply 1 each .ROUTE ASDIR #1 box 04/07/18 [Glucometer Test Strips #50] Miscellaneous Medical Supply 1 each .ROUTE ASDIR #1 box 04/07/18 [Lancets] Atorvastatin Ca [Lipitor] 40 mg PO HS tablet 02/03/19 Budesonide/Formeterol Fumarate 2 puff IH BID #1 inhaler 02/03/19 [SYMBICORT 160/4.5mcg -] Cefuroxime Axetil [Ceftin -] 500 mg PO BID #10 tablet 02/03/19 Gabapentin [Neurontin -] 300 mg PO TID #30 capsule 02/03/19 Losartan Potassium [Cozaar -] 50 mg PO DAILY #30 tablet 02/03/19 Nystatin/Triamcinolone Top Cr 1 applic TP BID applic 02/03/19 [Mycolog II -] Pantoprazole Sodium [Protonix -] 40 mg PO DAILY tablet.ec 02/03/19 Potassium Chloride [K-Dur -] 20 meq PO BID #10 tablet.er 02/03/19 Albuterol 0.083% Nebulizer Gisselle 1 neb NEB Q6H #30 amp 02/04/19 [Ventolin 0.083% Nebulizer Soln -] Albuterol Sulfate [Proair Hfa] 2 puff IH Q6H PRN #1 hfa.aer.ad 02/04/19 Atorvastatin Ca [Lipitor] 40 mg PO HS #30 tablet 02/04/19 Cefuroxime Axetil [Ceftin -] 500 mg PO Q12H #10 tablet 02/04/19 Losartan Potassium [Cozaar -] 50 mg PO DAILY #30 tablet 02/04/19 Albuterol 0.083% Nebulizer Gisselle 1 neb NEB Q4H #1 box 02/06/19 [Ventolin 0.083% Nebulizer Soln -] Budesonide/Formeterol Fumarate 2 inh PO BID #1 cannister 02/06/19 [SYMBICORT 160/4.5mcg -] Furosemide [Lasix -] 40 mg PO DAILY #30 tablet 02/06/19 Gabapentin 300 mg PO TID #90 capsule 02/06/19 Polyethylene Glycol 3350 [Miralax 17 gm PO BID #1 bottle 02/06/19 119 gm Btl -] Potassium Chloride [K-Dur -] 10 meq PO DAILY #30 tablet.er 02/06/19 Laboratory Tests 11/20/19 11/20/19 11/20/19 20:10 20:10 20:10 WBC 11.3 H RBC 5.36 H Hgb 13.3 Hct 44.0 MCV 84.2 MCH 25.3 L MCHC 30.0 L RDW 17.4 H Plt Count 192 MPV 9.7 Absolute Neuts (auto) 8.9 H Neutrophils % 78.5 Lymphocytes % 11.2 Monocytes % 8.8 Eosinophils % 0.9 Basophils % 0.6 Nucleated RBC % 0 PT with INR 12.70 INR 1.08 Anticoagulation Therapy Puncture Site Patient Temperature ABG pH ABG pCO2 ABG pO2 ABG HCO3 ABG O2 Sat (Measured) ABG O2 Content ABG Base Excess Dwayne Test Patient On Oxygen O2 Delivery Device Oxygen Flow Rate Vent Mode Vent Rate Mechanical Rate PEEP Pressure Support Vent Sodium 142 Potassium 4.2 Chloride 102 Carbon Dioxide 38 H Anion Gap 2 L BUN 13.2 Creatinine 0.8 Est GFR (CKD-EPI)AfAm 88.42 Est GFR (CKD-EPI)NonAf 76.29 Random Glucose 105 Calcium 8.4 L Total Bilirubin 0.5 AST 20 ALT 24 Alkaline Phosphatase 68 Creatine Kinase 171 Creatine Kinase Index 1.1 CK-MB (CK-2) 1.9 Troponin I < 0.02 B-Natriuretic Peptide 2471.8 H Total Protein 7.9 Albumin 3.3 L 11/20/19 23:34 WBC RBC Hgb Hct MCV MCH MCHC RDW Plt Count MPV Absolute Neuts (auto) Neutrophils % Lymphocytes % Monocytes % Eosinophils % Basophils % Nucleated RBC % PT with INR INR Anticoagulation Therapy No Result Required. Puncture Site Right radial Patient Temperature No Result Required. ABG pH 7.134 L* ABG pCO2 97.10 H* ABG pO2 76.3 L ABG HCO3 31.9 H ABG O2 Sat (Measured) 89.7 L ABG O2 Content No Result Required. ABG Base Excess -0.4 Dwayne Test Positive Patient On Oxygen No Result Required. O2 Delivery Device No Result Required. Oxygen Flow Rate No Result Required. Vent Mode No Result Required. Vent Rate No Result Required. Mechanical Rate No Result Required. PEEP No Result Required. Pressure Support Vent No Result Required. Sodium Potassium Chloride Carbon Dioxide Anion Gap BUN Creatinine Est GFR (CKD-EPI)AfAm Est GFR (CKD-EPI)NonAf Random Glucose Calcium Total Bilirubin AST ALT Alkaline Phosphatase Creatine Kinase Creatine Kinase Index CK-MB (CK-2) Troponin I B-Natriuretic Peptide Total Protein Albumin ASSESSMENT AND PLAN: 1. CHF/COPD exacerbation/Hypercapnic respiratory failure: Lower extremity cellulitis - Likely predominantly CHF exacerbation, made worse by COPD, and possiblly LEONIDES and obesity-hypoventilation syndrome. Noted to have severe CO2 retention on ABG and stared on BiPAP. CXR is poor quality due to body habitus/poor inspiration, but shows cardiomegaly, ?bilateral airspace opacities and blunted left costophrenic angle. EKG shows NSR at 83/minute and QTc 458 with diffuse T wave flattening. Not significantly changed compared to prior EKG from 01/2019. Initial troponin is negative. Will admit to telemetry, get urinalysis, treat with IV Lasix to achieve adequate diuresis, get ECHO, restrict dietary salt intake, monitor renal function, monitor and replete electrolytes, get daily weight and consult Cardiology. Will treat celllulitis with IV Cefazolin, elevate legs when supine, give Xopenex, Symbicort and monitor peak flow. Consult Pulmonary. ICU consulted. Viral testing for COVID-19 ordered and patient placed on airborne, droplet and contact isolation. Will continue comprehensive care for all of patients comorbid conditions. 2. Hypoalbuminemia - Possibly due to combined effects of malnutrition and inflammation associated with comorbid conditions. Will ensure adequate dietary protein intake and also consult physician assistant. Urinalysis pending. 3. DM For now, we will hold the home diabetes drugs and implement sliding scale insulin regimen. Provide comprehensive diabetes care with patient teaching and counseling about the importance of adherence to prescribed diabetes regimen, euglycemia, eye care and foot care. 4. Morbid obesity Counseled on the risks associated with obesity. Will provide patient all the necessary assistance, counseling and positive reinforcement to facilitate weight loss. Consult physician assistant. 5. Hypertension Ensure that BP is measured with right size cuff. Will restart suitable outpatient antihypertensive drugs when clinically appropriate. Subsequently, will revise regimen to ensure [id number] excellent BP control. Patient counseled on the injurious effects of uncontrolled hypertension. Nonpharmacologic measures to control hypertension like weight loss, salt restriction and exercise stressed. Importance of adherence to treatment regimen and attainment of normotension emphasized. 6. DVT prophylaxis - Lovenox 40 mg SQ q 12 hours. 7. Advance directives - Full code
[2019-11-20 23:41] LABS: ARTERIAL BLD GAS O2 SATURATION 89.7 mmHg (95-98); ARTERIAL BLOOD GAS BASE EXCESS -0.4 mmol/L (-2-2); ARTERIAL BLOOD GAS PO2 76.3 mmHg (80-100)
[2019-11-20 23:43] LABS: ALLENS TEST POSITIVE
[2019-11-20 23:48] LABS: ARTERIAL BLOOD GAS pH 7.134 (7.350-7.450)
[2019-11-21] MEDS ORDERED: FUROSEMIDE 40 MG/4 ML INJECTABLE VIAL IVPUSH ONE (00:35)
[2019-11-21] MEDS ORDERED: FUROSEMIDE 40 MG/4 ML INJECTABLE VIAL ONE (00:53)
--- NOTE | 2019-11-21 01:39 | CONSULT ---
Consultation: REQUESTING PROVIDER: Dr. Randall CONSULT REQUEST: We have been asked to medically evaluate this patient for ICU admission HISTORY OF PRESENT ILLNESS: Patient is a 69 year old woman with a PMH of HTN, HLD, HFpEF, NIDDM and Morbid obesity who presents to the ER with two weeks progressively worsening shortness of breath and bilateral leg swelling. According to primary team, patient was A&O x3 on arrival to ED and later on, patient became altered and less responsive. Repeat ABG showed hypoxic, hypercapnic respiratory failure. Patient was started on BIPAP. Patient was not arousable on exam, saturating well on BIPAP, fio2 50%. REVIEW OF SYSTEMS: could not assess CONSTITUTIONAL: Absent: fever, chills, diaphoresis, generalized weakness, malaise, loss of appetite, weight change HEENT: Absent: rhinorrhea, nasal congestion, throat pain, throat swelling, difficulty swallowing, mouth swelling, ear pain, eye pain, visual changes CARDIOVASCULAR: Absent: chest pain, syncope, palpitations, irregular heart rate, lightheadedness, peripheral edema RESPIRATORY: Absent: cough, shortness of breath, dyspnea with exertion, orthopnea, wheezing, stridor, hemoptysis GASTROINTESTINAL: Absent: abdominal pain, abdominal distension, nausea, vomiting, diarrhea, constipation, melena, hematochezia GENITOURINARY: Absent: dysuria, frequency, urgency, hesitancy, hematuria, flank pain, genital pain MUSCULOSKELETAL: Absent: myalgia, arthralgia, joint swelling, back pain, neck pain SKIN: Absent: rash, itching, pallor HEMATOLOGIC/IMMUNOLOGIC: Absent: easy bleeding, easy bruising, lymphadenopathy, frequent infections ENDOCRINE: Absent: unexplained weight gain, unexplained weight loss, heat intolerance, cold intolerance NEUROLOGIC: Absent: headache, focal weakness or paresthesias, dizziness, unsteady gait, seizure, mental status changes, bladder or bowel incontinence PSYCHIATRIC: Absent: anxiety, depression, suicidal or homicidal ideation, hallucinations. PHYSICAL EXAMINATION Vital Signs 11/20/19 11/20/19 16:28 20:08 Temperature 97 F L Pulse Rate 67 Pulse Rate [ 83 Apical] Respiratory 18 20 Rate Blood Pressure 129/56 L Blood Pressure 143/72 [Right Arm] O2 Sat by Pulse 95 99 Oximetry (%) GENERAL: asleep, not responding to verbal stimuli HEAD: Normal with no signs of trauma. EYES: PERRL ENT: BIPAP in place LUNGS: Clear upper lung sounds BL HEART: RRR, s1 s2 ABDOMEN: Obese, soft, nontender, nondistended MUSCULOSKELETAL: moving all limbs spontaneously EXTREMITIES: BL LE very warm erythematous with edema NEUROLOGICAL:moving to noxious stimuli, moving extremities spontaneously PSYCHIATRIC: Cooperative. Good eye contact. Appropriate mood and affect. SKIN: BL LE erythema with venous stasis skin changes Intake & Output 11/18/19 11/19/19 11/20/19 11/21/19 23:59 23:59 23:59 23:59 Weight 327 lb Laboratory Results - last 24 hr 11/20/19 11/20/19 11/20/19 20:10 20:10 20:10 WBC 11.3 H RBC 5.36 H Hgb 13.3 Hct 44.0 MCV 84.2 MCH 25.3 L MCHC 30.0 L RDW 17.4 H Plt Count 192 MPV 9.7 Absolute Neuts (auto) 8.9 H Neutrophils % 78.5 Lymphocytes % 11.2 Monocytes % 8.8 Eosinophils % 0.9 Basophils % 0.6 Nucleated RBC % 0 PT with INR 12.70 INR 1.08 Anticoagulation Therapy Puncture Site Patient Temperature ABG pH ABG pCO2 ABG pO2 ABG HCO3 ABG O2 Sat (Measured) ABG O2 Content ABG Base Excess Dwayne Test Patient On Oxygen O2 Delivery Device Oxygen Flow Rate Vent Mode Vent Rate Mechanical Rate PEEP Pressure Support Vent Sodium 142 Potassium 4.2 Chloride 102 Carbon Dioxide 38 H Anion Gap 2 L BUN 13.2 Creatinine 0.8 Est GFR (CKD-EPI)AfAm 88.42 Est GFR (CKD-EPI)NonAf 76.29 Random Glucose 105 Calcium 8.4 L Total Bilirubin 0.5 AST 20 ALT 24 Alkaline Phosphatase 68 Creatine Kinase 171 Creatine Kinase Index 1.1 CK-MB (CK-2) 1.9 Troponin I < 0.02 B-Natriuretic Peptide 2471.8 H Total Protein 7.9 Albumin 3.3 L 11/20/19 23:34 WBC RBC Hgb Hct MCV MCH MCHC RDW Plt Count MPV Absolute Neuts (auto) Neutrophils % Lymphocytes % Monocytes % Eosinophils % Basophils % Nucleated RBC % PT with INR INR Anticoagulation Therapy No Result Required. Puncture Site Right radial Patient Temperature No Result Required. ABG pH 7.134 L* ABG pCO2 97.10 H* ABG pO2 76.3 L ABG HCO3 31.9 H ABG O2 Sat (Measured) 89.7 L ABG O2 Content No Result Required. ABG Base Excess -0.4 Dwayne Test Positive Patient On Oxygen No Result Required. O2 Delivery Device No Result Required. Oxygen Flow Rate No Result Required. Vent Mode No Result Required. Vent Rate No Result Required. Mechanical Rate No Result Required. PEEP No Result Required. Pressure Support Vent No Result Required. Sodium Potassium Chloride Carbon Dioxide Anion Gap BUN Creatinine Est GFR (CKD-EPI)AfAm Est GFR (CKD-EPI)NonAf Random Glucose Calcium Total Bilirubin AST ALT Alkaline Phosphatase Creatine Kinase Creatine Kinase Index CK-MB (CK-2) Troponin I B-Natriuretic Peptide Total Protein Albumin ABG Results ABG pH 7.274 (7.350-7.450) L 11/21/19 02:20 ABG HCO3 37.8 mmol/L (22-27) H 11/21/19 02:20 ABG O2 Sat (Measured) 93.2 mmHg (95-98) L 11/21/19 02:20 ABG O2 Content No Result Required. 11/21/19 02:20 ABG Base Excess 7.5 mmol/L (-2-2) H 11/21/19 02:20 Medications Generic Name Dose Route Start Last Admin Trade Name Freq PRN Reason Stop Dose Admin Furosemide 40 mg 11/20/19 21:27 11/20/19 21:45 Lasix Injection - IVPUSH 11/20/19 21:28 40 mg ONCE ONE Administration Furosemide 80 mg 11/21/19 00:35 11/21/19 01:10 Lasix Injection - IVPUSH 11/21/19 00:36 80 mg ONCE ONE Administration Cefazolin Sodium 1 gm/ 50 mls @ 100 mls/hr 11/20/19 19:46 11/20/19 20:08 Dextrose IVPB 11/20/19 20:15 100 mls/hr ONCE ONE Administration ASSESSMENT/PLAN: Patient is a 69 year old woman with a PMH of HTN, HLD, HFpEF, NIDDM and Morbid obesity who presented to the ER with two weeks of progressively worsening SOB and BL leg swelling. Patient admitted for CHF exacerbation with BL LL cellulitis. CHF Exacerbation vs COPD exacerbation vs PNA, w/acute hypoxic, hypercarbic respiratory failure - started on IV lasixs, 40mg than 80 mg - strict monitor I&Os - started on BIPAP - repeat ABG, if worsens consider intubation - give solumedrol 125 now - trops neg x1 - start azithromycin BL LE Cellulitis - leukocytosis - started on IV Cefazolin - continue to monitor DM BGM w/ISS DVT Ppx - Lovenox 40 mg SQ q 12h GI Ppx - 40 IV protonix DISPO: Repeat ABG slightly improved, but patient still remains only responsive to painful stimuli, will admit patient to ICU for further monitoring and possibly intubation if necessary Visit type - Medication Review Med list reviewed for High Risk Meds patients 65 and older: Yes - Emergency Visit Emergency Visit: Yes ED Registration Date: 11/20/19 Care time: The patient presented to the Emergency Department on the above date and was hospitalized for further evaluation of their emergent condition. - New Patient This patient is new to me today: Yes Date on this admission: 11/21/19 - Critical Care Critical Care patient: Yes Total Critical Care Time (in minutes): 36 Critical Care Statement: The care of this patient involved high complexity decision making to prevent further life threatening deterioration of the patient's condition and/or to evaluate & treat vital organ system(s) failure or risk of failure. ATTENDING PHYSICIAN STATEMENT I saw and evaluated the patient. I reviewed the resident's note and discussed the case with the resident. I agree with the resident's findings and plan as documented. SUBJECTIVE: OBJECTIVE: ASSESSMENT AND PLAN:
[2019-11-21 02:43] LABS: URINE APPEARANCE CLEAR; URINE BILIRUBIN NEGATIVE (NEGATIVE); URINE COLOR YELLOW; URINE GLUCOSE (UA) NEGATIVE (NEGATIVE); URINE KETONE NEGATIVE (NEGATIVE); URINE LEUK ESTERASE NEGATIVE (NEGATIVE); URINE NITRITE NEGATIVE (NEGATIVE); URINE PROTEIN NEGATIVE (NEGATIVE); URINE UROBILINOGEN 0.2 mg/dL (0.2-1.0)
[2019-11-21 02:53] LABS: ARTERIAL BLD GAS O2 SATURATION 93.2 mmHg (95-98); ARTERIAL BLOOD GAS BASE EXCESS 7.5 mmol/L (-2-2); ARTERIAL BLOOD GAS PO2 77.9 mmHg (80-100); ARTERIAL BLOOD GAS pH 7.274 (7.350-7.450)
[2019-11-21 02:59] LABS: ALLENS TEST POSITIVE; VENT MODE S/T; VENT RATE 22
[2019-11-21] MEDS ORDERED: methylPREDNISolone NA SUCC 125 MG/2 ML VIAL IVPUSH ONE (03:28)
[2019-11-21] MEDS ORDERED: methylPREDNISolone NA SUCC 125 MG/2 ML VIAL ONE (03:46)
[2019-11-21 04:56] VITALS: BMI 60.4
[2019-11-21] MEDS: INSULIN SLIDING SCALE (NOVOLOG) 1 VIAL SQ SCH ×4 (06:24→22:31)
[2019-11-21 06:29] LABS: ARTERIAL BLD GAS O2 SATURATION 89.6 mmHg (95-98); ARTERIAL BLOOD GAS BASE EXCESS 4.1 mmol/L (-2-2); ARTERIAL BLOOD GAS PO2 66.6 mmHg (80-100); ARTERIAL BLOOD GAS pH 7.267 (7.350-7.450)
[2019-11-21 06:51] LABS: ALLENS TEST POSITIVE; VENT MODE S/T; VENT RATE 22
[2019-11-21] MEDS ORDERED: INSULIN SLIDING SCALE (NOVOLOG) 1 VIAL SQ SCH (07:00)
--- NOTE | 2019-11-21 08:07 | HP ---
Admitting History and Physical - Primary Care Physician PCP: Papito Inman - Admission Chief Complaint: SEPSSIS/CELLUTLITS History of Present Illness: 69 yo F pmh HTN, HLD, CHF, DM, morbid obesity, presenting with 2 weeks of swelling, increased SOB, warm red swollen legs. Patient visited her PCP and was given PO antibiotics 2 weeks ago, redness and warmth improved but recurred when antibiotic course was completed. She also endorses decreased exercise tolerance, only able to walk across the room before becoming short of breath and fatigued, unable to lay flat at night without difficulty breathing so she sleeps at an incline. She takes Lasix 40mg daily for her edema. Denies fevers, chills, vomiting (intermittent nausea), denies difficulty breathing at rest, chest pain, headache, pain with ambulation. States that there is a tightness in her lower abdomen as she has been gaining weight and noticed redness that hsa expanded up the left thigh and across her lower abdomen. History Source: Transfer Record Limitations to Obtaining History: Clinical Condition - Past Medical History Cardiovascular: Yes: CHF, HTN, Hyperlipdemia, [place] Pulmonary: Yes: COPD, O2 Dependent, Sleep Apnea Endocrine: Yes: Diabetes Mellitus - Smoking History Smoking history: Never smoked Have you smoked in the past 12 months: No - Alcohol/Substance Use Hx Alcohol Use: No - Social History History of Recent Travel: No Home Medications - Allergies Allergies/Adverse Reactions: Allergies Allergy/AdvReac Type Severity Reaction Status Date / Time No Known Allergies Allergy Verified 11/20/19 16:32 - Home Medications Home Medications: Ambulatory Orders Nebulizer [Airs Disposable Nebulizer] 04/06/18 Alcohol Antiseptic Pads [Alcohol Prep Pads] 1 each TP ASDIR #1 box 04/07/18 Aspirin [ASA -] 81 mg PO DAILY #30 tab.chew 04/07/18 Insulin Glargine,Hum.rec.anlog [Basaglar Kwikpen U-100] 10 unit SQ DAILY #1 insuln.pen 04/07/18 Miscellaneous Medical Supply [Glucometer Device] 1 each .ROUTE ASDIR #1 kit 04/07/18 Miscellaneous Medical Supply [Glucometer Test Strips #50] 1 each .ROUTE ASDIR #1 box 04/07/18 Miscellaneous Medical Supply [Lancets] 1 each .ROUTE ASDIR #1 box 04/07/18 Atorvastatin Ca [Lipitor] 40 mg PO HS tablet 02/03/19 Budesonide/Formeterol Fumarate [SYMBICORT 160/4.5mcg -] 2 puff IH BID #1 inhaler 02/03/19 Cefuroxime Axetil [Ceftin -] 500 mg PO BID #10 tablet 02/03/19 Gabapentin [Neurontin -] 300 mg PO TID #30 capsule 02/03/19 Losartan Potassium [Cozaar -] 50 mg PO DAILY #30 tablet 02/03/19 Nystatin/Triamcinolone Top Cr [Mycolog II -] 1 applic TP BID applic 02/03/19 Pantoprazole Sodium [Protonix -] 40 mg PO DAILY tablet.ec 02/03/19 Potassium Chloride [K-Dur -] 20 meq PO BID #10 tablet.er 02/03/19 Albuterol 0.083% Nebulizer Gisselle [Ventolin 0.083% Nebulizer Soln -] 1 neb NEB Q6H #30 amp 02/04/19 Albuterol Sulfate [Proair Hfa] 2 puff IH Q6H PRN #1 hfa.aer.ad 02/04/19 Atorvastatin Ca [Lipitor] 40 mg PO HS #30 tablet 02/04/19 Cefuroxime Axetil [Ceftin -] 500 mg PO Q12H #10 tablet 02/04/19 Losartan Potassium [Cozaar -] 50 mg PO DAILY #30 tablet 02/04/19 Albuterol 0.083% Nebulizer Gisselle [Ventolin 0.083% Nebulizer Soln -] 1 neb NEB Q4H #1 box 02/06/19 Budesonide/Formeterol Fumarate [SYMBICORT 160/4.5mcg -] 2 inh PO BID #1 canni ster 02/06/19 Furosemide [Lasix -] 40 mg PO DAILY #30 tablet 02/06/19 Gabapentin 300 mg PO TID #90 capsule 02/06/19 Polyethylene Glycol 3350 [Miralax 119 gm Btl -] 17 gm PO BID #1 bottle 02/06/19 Potassium Chloride [K-Dur -] 10 meq PO DAILY #30 tablet.er 02/06/19 Review of Systems - Review of Systems Constitutional: reports: Weakness Cardiovascular: reports: Shortness of Breath Respiratory: reports: SOB Gastrointestinal: reports: Abdominal Pain Genitourinary: reports: Other Musculoskeletal: reports: Decreased ROM, Joint Swelling, Muscle Weakness Integumentary: reports: Erythema Neurological: reports: Pre-Existing Deficit Physical Examination Vital Signs: Vital Signs Temperature 98.4 F 11/21/19 04:56 Pulse Rate 77 11/21/19 06:00 Respiratory Rate 25 H 11/21/19 06:00 Blood Pressure 114/78 11/21/19 06:00 O2 Sat by Pulse Oximetry (%) 97 11/21/19 06:00 Constitutional: Yes: Moderate Distress Cardiovascular: Yes: Tachycardia, Pulse Irregular Respiratory: Yes: Diminished, On BiPap Gastrointestinal: Yes: Soft, Abdomen, Obese, Distention Renal/: Yes: Incontinence Musculoskeletal: Yes: Muscle Weakness Edema: LLE: 2+, RLE: 2+ Integumentary: Yes: Erythema, Pressure Ulcer, Rash, Venous Stasis Changes Wound/Incision: Yes: Excoriated, Unapproximated Neurological: Yes: Pre-Existing Deficit, Weakness ...Motor Strength: LLE, RLE Psychiatric: Yes: Other Labs: CBC, BMP 11/20/19 20:10 11/20/19 20:10 Problem List - Problems (1) CHF (congestive heart failure) Code(s): I50.9 - HEART FAILURE, UNSPECIFIED Qualifiers: Heart failure type: unspecified Heart failure chronicity: acute on chronic Qualified Code(s): I50.9 - Heart failure, unspecified (2) Cellulitis Code(s): L03.90 - CELLULITIS, UNSPECIFIED Qualifiers: Site of cellulitis: extremity Site of cellulitis of extremity: lower extremity Laterality: unspecified laterality Qualified Code(s): L03.119 - Cellulitis of unspecified part of limb (3) Acute on chronic diastolic (congestive) heart failure Code(s): I50.33 - ACUTE ON CHRONIC DIASTOLIC (CONGESTIVE) HEART FAILURE (4) Acute on chronic respiratory failure with hypoxia and hypercapnia Code(s): J96.21 - ACUTE AND CHRONIC RESPIRATORY FAILURE WITH HYPOXIA; J96.22 - ACUTE AND CHRONIC RESPIRATORY FAILURE WITH HYPERCAPNIA (5) Hypercapnic respiratory failure Code(s): J96.92 - RESPIRATORY FAILURE, UNSPECIFIED WITH HYPERCAPNIA Qualifiers: Chronicity: unspecified Qualified Code(s): J96.92 - Respiratory failure, unspecified with hypercapnia (6) Obesity, morbid, BMI 50 or higher Code(s): E66.01 - MORBID (SEVERE) OBESITY DUE TO EXCESS CALORIES (7) Diabetes Code(s): E11.9 - TYPE 2 DIABETES MELLITUS WITHOUT COMPLICATIONS Assessment/Plan BIPAP FOR RESPIRATORY SUPPORT IV ABX PER ID PULMONARY EVAL APPRECIATED DVT PROPHYLAXIS WOUND CARE DRESSING CHANGE MONITOR LABS
[2019-11-21 09:42] LABS: ARTERIAL BLD GAS O2 SATURATION 93.8 mmHg (95-98); ARTERIAL BLOOD GAS BASE EXCESS 4.8 mmol/L (-2-2); ARTERIAL BLOOD GAS PO2 80.8 mmHg (80-100); ARTERIAL BLOOD GAS pH 7.266 (7.350-7.450)
[2019-11-21 09:43] LABS: ALLENS TEST POSITIVE
[2019-11-21 09:44] LABS: VENT MODE ST; VENT RATE 22
[2019-11-21] MEDS ORDERED: AZITHROMYCIN IVPB 500 MG/250 ML BAG IVPB SCH (10:00)
[2019-11-21] MEDS ORDERED: CEFAZOLIN 1 GM/D5W 1 GM/50 ML BAG IVPB SCH (10:00)
[2019-11-21] MEDS ORDERED: MUPIROCIN 2% TOPICAL OINTMENT FOR DECOLONIZATION NS SCH (10:00)
[2019-11-21] MEDS ORDERED: PANTOPRAZOLE SODIUM 40 MG VIAL IVPUSH SCH (10:00)
--- NOTE | 2019-11-21 10:10 | PN ---
Progress Note (short form) - Note Progress Note: ID consult dictated imp.recced hypercapneic respiratory failure/COPD bilateral LE cellulitis morbid obesity bilateral infiltrates most likelly congestion plan rocephin/zith will cover both her cellulitis (no history of MDRO) and her lungs check legionella urinary antigen Problem List - Problems (1) Cellulitis Code(s): L03.90 - CELLULITIS, UNSPECIFIED Qualifiers: Site of cellulitis: extremity Site of cellulitis of extremity: lower extremity Laterality: unspecified laterality Qualified Code(s): L03.119 - Cellulitis of unspecified part of limb (2) Hypercapnic respiratory failure Code(s): J96.92 - RESPIRATORY FAILURE, UNSPECIFIED WITH HYPERCAPNIA Qualifiers: Chronicity: unspecified Qualified Code(s): J96.92 - Respiratory failure, unspecified with hypercapnia (3) COPD exacerbation Code(s): J44.1 - CHRONIC OBSTRUCTIVE PULMONARY DISEASE W (ACUTE) EXACERBATION (4) Bilateral pulmonary infiltrates on CXR Code(s): R91.8 - OTHER NONSPECIFIC ABNORMAL FINDING OF LUNG FIELD (5) Obesity, morbid, BMI 50 or higher Code(s): E66.01 - MORBID (SEVERE) OBESITY DUE TO EXCESS CALORIES
[2019-11-21] MEDS: ENOXAPARIN NA (PORCINE) 40 MG/0.4 ML DISP.SYRIN SQ SCH ×2 (10:15→22:31)
[2019-11-21] MEDS ORDERED: CEFTRIAXONE 2 GM in DEXTROSE 5%-WATER 100 ML IVPB SCH (10:15)
[2019-11-21] MEDS: MUPIROCIN 2% TOPICAL OINTMENT FOR DECOLONIZATION NS SCH ×2 (10:16→22:17)
[2019-11-21] MEDS ORDERED: DEXTROSE 5%-WATER 100 ML IVPB ONE (10:32)
[2019-11-21 11:01] LABS: BASO % 0.2 % (0-2.0); EOS % 0.1 % (0-4.5); HEMATOCRIT 43.8 % (32.4-45.2); HEMOGLOBIN 13.1 GM/dL (10.7-15.3); LYMPH % 4.9 % (8-40); MCH 24.9 pg (25.7-33.7); MCHC 29.9 g/dl (32.0-36.0); MEAN CELL VOLUME 83.4 fl (80-96); MEAN PLT VOLUME 9.7 fl (7.5-11.1); NEUT % 92.8 % (42.8-82.8); PLATELET COUNT 171 K/MM3 (134-434); RBC 5.26 M/mm3 (3.60-5.2); RDW 17.9 % (11.6-15.6); WHITE BLOOD COUNT 10.8 K/mm3 (4.0-10.0)
--- NOTE | 2019-11-21 11:16 | EKG ---
Test Reason : Blood Pressure : / mmHG Vent. Rate : 083 BPM Atrial Rate : 083 BPM P-R Int : 136 ms QRS Dur : 092 ms QT Int : 390 ms P-R-T Axes : 059 031 030 degrees QTc Int : 458 ms NORMAL SINUS RHYTHM NONSPECIFIC T WAVE ABNORMALITY ABNORMAL ECG WHEN COMPARED WITH ECG OF 03-FEB-2019 09:20, T WAVE VARIATION Confirmed by LALIT CHRISTIE MD ([id number]) on 11/21/2019 11:16:32 AM Referred By: Confirmed By:LALIT CHRISTIE MD
[2019-11-21 11:57] LABS: ALBUMIN 2.9 g/dl (3.4-5.0); BILIRUBIN,TOTAL 0.6 mg/dL (0.2-1); CALCIUM 8.3 mg/dL (8.5-10.1); CREATININE 0.8 mg/dL (0.55-1.3); MAGNESIUM 1.7 mg/dL (1.8-2.4); PHOSPHOROUS 3.9 mg/dL (2.5-4.9); POTASSIUM 4.3 mmol/L (3.5-5.1); TOT PROT 7.2 g/dl (6.4-8.2)
[2019-11-21 12:18] LABS: ANISOCYTOSIS 1+; MACROCYTOSIS 0; PLATELET ESTIMATE NORMAL
--- NOTE | 2019-11-21 13:27 | PN ---
Teaching Attending Note Name of Resident: Jarek Hayes ATTENDING PHYSICIAN STATEMENT I saw and evaluated the patient. I reviewed the resident's note and discussed the case with the resident. I agree with the resident's findings and plan as documented. SUBJECTIVE: Pt seen and examined in the ICU. Remains on BiPAP, somnolent but arousable. OBJECTIVE: Vital Signs Period Temp Pulse Resp BP Sys/Garner Pulse Ox Last 24 Hr 97 F-98.4 F 67-89 18-27 107-145/56-87 95-99 Intake & Output 11/18/19 11/19/19 11/20/19 11/21/19 23:59 23:59 23:59 23:59 Intake Total 250 Output Total 1850 Balance -1600 Weight 148.325 kg 159.755 kg Gen: somnolent but arousable on BiPAP Heart: RRR Lung: distant breath sounds Abd: soft, nontender Ext: + edema, + erythema CBC, BMP 11/21/19 10:02 11/21/19 10:02 Active Medications Chlorhexidine Gluconate (Hibiclens For Decolonization -) 1 applic TP HS [facility] [place] Enoxaparin Sodium (Lovenox -) 40 mg SQ BID [facility] [place] Last Admin: 11/21/19 10:15 Dose: 40 mg Documented by: Azithromycin (Zithromax 500mg Ivpb (Pre-Docked)) 500 mg in 250 mls @ 250 mls/hr IVPB DAILY [facility] Last Admin: 11/21/19 10:16 Dose: 250 mls/hr Documented by: Ceftriaxone Sodium 2 gm/ (Dextrose) 100 mls @ 200 mls/hr IVPB DAILY [facility]; Protocol Last Admin: 11/21/19 11:21 Dose: 200 mls/hr Documented by: Insulin Aspart (Novolog Vial Sliding Scale -) 1 vial SQ ACHS [facility] [place]; Protocol Last Admin: 11/21/19 11:22 Dose: Not Given Documented by: Methylprednisolone Sodium Succinate (Solu-Medrol -) 60 mg IVPUSH BID [facility] [place] Mupirocin (Bactroban Ointment (For Decolonization) -) 1 applic NS BID [facility] [place] Stop: 11/26/19 09:59 Last Admin: 11/21/19 10:16 Dose: 1 applic Documented by: Pantoprazole Sodium (Protonix Iv) 40 mg IVPUSH DAILY [facility] [place] Last Admin: 11/21/19 10:15 Dose: 40 mg Documented by: ASSESSMENT AND PLAN: Acute on Chronic Hypoxic and Hypercapneic Respiratory Failure Cellulitis Acute on Chronic Diastolic Heart Failure LEONIDES/OHS HTN DM Morbid Obesity - continue lasix - monitor urine output, creatinine - O2 to keep SpO2 >90% - BiPAP - continue antibiotics - f/u cultures - empiric medrol for now - inhaled bronchodilators - DVT prophylaxis - continue ICU monitoring for now
--- NOTE | 2019-11-21 15:15 | ECHO ---
Name: BUSTER CARNEY Exam:Adult Echocardiogram Study Date: 11/21/2019 11:37 AM Age: 69 yrs Reason For Study: CHF Exacerbation Height: 64 in Weight: 327 lb BSA: 2.4 m2 MMode/2D Measurements & Calculations RVDd: 3.3 cm Ao root diam: 2.8 cm IVSd: 1.3 cm LA dimension: 3.5 cm LVIDd: 4.3 cm ACS: 1.7 cm LVIDs: 2.6 cm LVPWd: 1.2 cm EDV(Teich): 84.8 ml LVOT diam: 2.0 cm ESV(Teich): 24.8 ml LAV (MOD-bp): 75.0 ml TAPSE: 3.0 cm RV S Hieu: 14.1 cm/sec Doppler Measurements & Calculations MV E max hieu: 104.7 cm/sec Ao V2 max: 156.1 cm/sec MV A max hieu: 105.8 cm/sec Ao max P.7 mmHg MV E/A: 0.99 Ao V2 mean: 100.8 cm/sec MV dec time: 0.19 sec Ao mean P.7 mmHg Ao V2 VTI: 32.0 cm KSENIA(I,D): 2.5 cm2 KSENIA(V,D): 2.5 cm2 LV V1 max P.8 mmHg SV(LVOT): 80.9 ml LV V1 mean P.6 mmHg LV V1 max: 120.6 cm/sec LV V1 mean: 73.7 cm/sec LV V1 VTI: 25.2 cm TR max hieu: 276.5 cm/sec PA V2 max: 112.7 cm/sec TR max P.0 mmHg PA max P.1 mmHg PA acc slope: 379.8 cm/sec2 PA acc time: 0.19 sec PI end-d hieu: 120.8 cm/sec Med Peak E' Hieu: 7.2 cm/sec Med E/e': 14.5 Lat Peak E' Hieu: 10.7 cm/sec Lat E/e': 9.8 PA pr(Accel): -8.1 mmHg Pulm Sys Hieu: 40.3 cm/sec Pulm Garner Hieu: 52.4 cm/sec Pulm S/D: 0.77 Tech Comments TDS due to morbid obesity. Patient scanned sitting up, on BiPAP. Procedure A complete two-dimensional transthoracic echocardiogram was performed (2D, M-mode, Doppler and color flow Doppler). Technically limited study. Left Ventricle The left ventricle is normal in size. There is mild concentric left ventricular hypertrophy. Left tony tricular systolic function is normal. Ejection Fraction = 65-70%. No regional wall motion abnormalities noted. Right Ventricle The right ventricle is mildly dilated. The right ventricular systolic function is normal. Atria The left atrial size is normal. LA volume index is 31 ml/m2. The right atrium is mildly dilated. Mitral Valve There is mild mitral annular calcification. There is mild mitral regurgitation. Tricuspid Valve The tricuspid valve is normal in structure and function. There is mild tricuspid regurgitation. Aortic Valve There is mild aortic sclerosis.;. No aortic regurgitation is present. Pulmonic Valve The pulmonic valve is not well seen, but is grossly normal. Mild pulmonic valvular regurgitation. Great Vessels The aortic root is normal size. Pericardium/Pleura There is no pericardial effusion. Interpretation Summary Technically limited study The left ventricle is normal in size. There is mild concentric left ventricular hypertrophy. Left ventricular systolic function is normal. No regional wall motion abnormalities noted. Ejection Fraction = 65-70%. The right ventricle is mildly dilated. The right ventricular systolic function is normal. The left atrial size is normal. The right atrium is mildly dilated. There is mild mitral annular calcification. There is mild mitral regurgitation. There is mild tricuspid regurgitation. There is mild aortic sclerosis. Mild pulmonic valvular regurgitation. There is no pericardial effusion. Abisai Victor MD 11/21/2019 03:15 PM
[2019-11-21] MEDS ORDERED: FUROSEMIDE 40 MG/4 ML INJECTABLE VIAL IVPUSH SCH (16:45)
--- NOTE | 2019-11-21 16:56 | PN ---
Physical Exam: SUBJECTIVE: Patient seen and examined. Pt not able to answer most questions. After examining pt in the morning later in the day. Pt was alot more alert only complaining of being hungry with no feelings of fevers, chills, trouble breathing, or abdominal pain. OBJECTIVE: Vital Signs Period Temp Pulse Resp BP Sys/Garner Pulse Ox Last 24 Hr 97.8 F-98.4 F 71-83 18-27 107-145/45-87 95-99 GENERAL: On initial presentation The patient is awake, alert, and oriented to person . Later in the day pt was AAOx3 HEAD: Normal with no signs of trauma. EYES: PERRL, extraocular movements intact, sclera anicteric, conjunctiva clear. No ptosis. ENT: Ears normal, nares patent, oropharynx clear without exudates, moist mucous membranes. NECK: Trachea midline, full range of motion, supple. LUNGS: Rhonchi bilaterally on Bipap HEART: Regular rate and rhythm, S1, S2 without murmur, rub or gallop. ABDOMEN: Soft, nontender, nondistended, normoactive bowel sounds, no guarding, no rebound, no hepatosplenomegaly, no masses. EXTREMITIES: 2+ pulses, Bilateral edema with cellulitis to both lower ext. NEUROLOGICAL: Cranial nerves II through XII grossly intact. Normal speech, gait not observed. PSYCH: Normal mood, normal affect. Laboratory Results - last 24 hr 11/20/19 11/20/19 11/20/19 20:10 20:10 20:10 WBC 11.3 H RBC 5.36 H Hgb 13.3 Hct 44.0 MCV 84.2 MCH 25.3 L MCHC 30.0 L RDW 17.4 H Plt Count 192 MPV 9.7 Absolute Neuts (auto) 8.9 H Neutrophils % 78.5 Neutrophils % (Manual) Band Neutrophils % Lymphocytes % 11.2 Lymphocytes % (Manual) Monocytes % 8.8 Monocytes % (Manual) Eosinophils % 0.9 Eosinophils % (Manual) Basophils % 0.6 Basophils % (Manual) Myelocytes % (Man) Promyelocytes % (Man) Blast Cells % (Manual) Nucleated RBC % 0 Metamyelocytes Hypochromia Platelet Estimate Polychromasia Poikilocytosis Anisocytosis Microcytosis Macrocytosis PT with INR 12.70 INR 1.08 Anticoagulation Therapy Puncture Site Patient Temperature ABG pH ABG pCO2 ABG pO2 ABG HCO3 ABG O2 Sat (Measured) ABG O2 Content ABG Base Excess Dwayne Test Patient On Oxygen O2 Delivery Device Oxygen Flow Rate Vent Mode Vent Rate Mechanical Rate PEEP Pressure Support Vent Sodium 142 Potassium 4.2 Chloride 102 Carbon Dioxide 38 H Anion Gap 2 L BUN 13.2 Creatinine 0.8 Est GFR (CKD-EPI)AfAm 88.42 Est GFR (CKD-EPI)NonAf 76.29 POC Glucometer Random Glucose 105 Calcium 8.4 L Phosphorus Magnesium Total Bilirubin 0.5 AST 20 ALT 24 Alkaline Phosphatase 68 Creatine Kinase 171 Creatine Kinase Index 1.1 CK-MB (CK-2) 1.9 Troponin I < 0.02 B-Natriuretic Peptide 2471.8 H Total Protein 7.9 Albumin 3.3 L Urine Color Urine Appearance Urine pH Ur Specific [place] Urine Protein Urine Glucose (UA) Urine Ketones Urine Blood Urine Nitrite Urine Bilirubin Urine Urobilinogen Ur Leukocyte Esterase COVID-19 (ELIGIO) 11/20/19 11/20/19 11/21/19 21:31 23:34 01:59 WBC RBC Hgb Hct MCV MCH MCHC RDW Plt Count MPV Absolute Neuts (auto) Neutrophils % Neutrophils % (Manual) Band Neutrophils % Lymphocytes % Lymphocytes % (Manual) Monocytes % Monocytes % (Manual) Eosinophils % Eosinophils % (Manual) Basophils % Basophils % (Manual) Myelocytes % (Man) Promyelocytes % (Man) Blast Cells % (Manual) Nucleated RBC % Metamyelocytes Hypochromia Platelet Estimate Polychromasia Poikilocytosis Anisocytosis Microcytosis Macrocytosis PT with INR INR Anticoagulation Therapy No Result Required. Puncture Site Right radial Patient Temperature No Result Required. ABG pH 7.134 L* ABG pCO2 97.10 H* ABG pO2 76.3 L ABG HCO3 31.9 H ABG O2 Sat (Measured) 89.7 L ABG O2 Content No Result Required. ABG Base Excess -0.4 Dwayne Test Positive Patient On Oxygen No Result Required. O2 Delivery Device No Result Required. Oxygen Flow Rate No Result Required. Vent Mode No Result Required. Vent Rate No Result Required. Mechanical Rate No Result Required. PEEP No Result Required. Pressure Support Vent No Result Required. Sodium Potassium Chloride Carbon Dioxide Anion Gap BUN Creatinine Est GFR (CKD-EPI)AfAm Est GFR (CKD-EPI)NonAf POC Glucometer Random Glucose Calcium Phosphorus Magnesium Total Bilirubin AST ALT Alkaline Phosphatase Creatine Kinase Creatine Kinase Index CK-MB (CK-2) Troponin I B-Natriuretic Peptide Total Protein Albumin Urine Color Yellow Urine Appearance Clear Urine pH 5.0 Ur Specific [place] 1.008 L Urine Protein Negative Urine Glucose (UA) Negative Urine Ketones Negative Urine Blood Negative Urine Nitrite Negative Urine Bilirubin Negative Urine Urobilinogen 0.2 Ur Leukocyte Esterase Negative COVID-19 (ELIGIO) Not detected 11/21/19 11/21/19 11/21/19 02:20 03:50 04:58 WBC RBC Hgb Hct MCV MCH MCHC RDW Plt Count MPV Absolute Neuts (auto) Neutrophils % Neutrophils % (Manual) Band Neutrophils % Lymphocytes % Lymphocytes % (Manual) Monocytes % Monocytes % (Manual) Eosinophils % Eosinophils % (Manual) Basophils % Basophils % (Manual) Myelocytes % (Man) Promyelocytes % (Man) Blast Cells % (Manual) Nucleated RBC % Metamyelocytes Hypochromia Platelet Estimate Polychromasia Poikilocytosis Anisocytosis Microcytosis Macrocytosis PT with INR INR Anticoagulation Therapy No Result Required. Puncture Site Right radial Patient Temperature No Result Required. ABG pH 7.274 L ABG pCO2 83.40 H* ABG pO2 77.9 L ABG HCO3 37.8 H ABG O2 Sat (Measured) 93.2 L ABG O2 Content No Result Required. ABG Base Excess 7.5 H Dwayne Test Positive Patient On Oxygen Yes O2 Delivery Device Bipap Oxygen Flow Rate 50% Vent Mode S/t Vent Rate 22 Mechanical Rate Bipap PEEP 8.0 Pressure Support Vent 18 Sodium Potassium Chloride Carbon Dioxide Anion Gap BUN Creatinine Est GFR (CKD-EPI)AfAm Est GFR (CKD-EPI)NonAf POC Glucometer 92 90 Random Glucose Calcium Phosphorus Magnesium Total Bilirubin AST ALT Alkaline Phosphatase Creatine Kinase Creatine Kinase Index CK-MB (CK-2) Troponin I B-Natriuretic Peptide Total Protein Albumin Urine Color Urine Appearance Urine pH Ur Specific [place] Urine Protein Urine Glucose (UA) Urine Ketones Urine Blood Urine Nitrite Urine Bilirubin Urine Urobilinogen Ur Leukocyte Esterase COVID-19 (ELIGIO) 11/21/19 11/21/19 11/21/19 06:05 08:55 10:02 WBC 10.8 H RBC 5.26 H Hgb 13.1 Hct 43.8 MCV 83.4 MCH 24.9 L MCHC 29.9 L RDW 17.9 H Plt Count 171 MPV 9.7 Absolute Neuts (auto) 10.1 H Neutrophils % 92.8 H Neutrophils % (Manual) 92.1 H Band Neutrophils % 0.0 Lymphocytes % 4.9 L D Lymphocytes % (Manual) 4.9 L Monocytes % 2.0 L Monocytes % (Manual) 1 L Eosinophils % 0.1 D Eosinophils % (Manual) 0.0 Basophils % 0.2 Basophils % (Manual) 0.0 Myelocytes % (Man) 2 Promyelocytes % (Man) 0 Blast Cells % (Manual) 0 Nucleated RBC % 0 Metamyelocytes 0 Hypochromia 0 Platelet Estimate Normal Polychromasia 0 Poikilocytosis 0 Anisocytosis 1+ Microcytosis 1+ Macrocytosis 0 PT with INR INR Anticoagulation Therapy No Result Required. No Result Required. Puncture Site Right radial Right radial Patient Temperature No Result Required. No Result Required. ABG pH 7.267 L 7.266 L ABG pCO2 75.60 H* 78.00 H* ABG pO2 66.6 L 80.8 ABG HCO3 33.7 H 34.7 H ABG O2 Sat (Measured) 89.6 L 93.8 L ABG O2 Content No Result Required. No Result Required. ABG Base Excess 4.1 H 4.8 H Dwayne Test Positive Positive Patient On Oxygen Yes Yes O2 Delivery Device Bipap Bipap Oxygen Flow Rate 50% 50 Vent Mode S/t St Vent Rate 22 22 Mechanical Rate Bipap V PEEP 8.0 0.0 Pressure Support Vent 18 16/8 Sodium Potassium Chloride Carbon Dioxide Anion Gap BUN Creatinine Est GFR (CKD-EPI)AfAm Est GFR (CKD-EPI)NonAf POC Glucometer Random Glucose Calcium Phosphorus Magnesium Total Bilirubin AST ALT Alkaline Phosphatase Creatine Kinase Creatine Kinase Index CK-MB (CK-2) Troponin I B-Natriuretic Peptide Total Protein Albumin Urine Color Urine Appearance Urine pH Ur Specific [place] Urine Protein Urine Glucose (UA) Urine Ketones Urine Blood Urine Nitrite Urine Bilirubin Urine Urobilinogen Ur Leukocyte Esterase COVID-19 (ELIGIO) 11/21/19 11/21/19 11/21/19 10:02 11:15 16:53 WBC RBC Hgb Hct MCV MCH MCHC RDW Plt Count MPV Absolute Neuts (auto) Neutrophils % Neutrophils % (Manual) Band Neutrophils % Lymphocytes % Lymphocytes % (Manual) Monocytes % Monocytes % (Manual) Eosinophils % Eosinophils % (Manual) Basophils % Basophils % (Manual) Myelocytes % (Man) Promyelocytes % (Man) Blast Cells % (Manual) Nucleated RBC % Metamyelocytes Hypochromia Platelet Estimate Polychromasia Poikilocytosis Anisocytosis Microcytosis Macrocytosis PT with INR INR Anticoagulation Therapy Puncture Site Patient Temperature ABG pH ABG pCO2 ABG pO2 ABG HCO3 ABG O2 Sat (Measured) ABG O2 Content ABG Base Excess Dwayne Test Patient On Oxygen O2 Delivery Device Oxygen Flow Rate Vent Mode Vent Rate Mechanical Rate PEEP Pressure Support Vent Sodium 144 Potassium 4.3 Chloride 100 Carbon Dioxide 39 H Anion Gap 5 L BUN 11.0 Creatinine 0.8 Est GFR (CKD-EPI)AfAm 88.42 Est GFR (CKD-EPI)NonAf 76.29 POC Glucometer 125 115 Random Glucose 126 H Calcium 8.3 L Phosphorus 3.9 Magnesium 1.7 L Total Bilirubin 0.6 AST 15 ALT 19 Alkaline Phosphatase 64 Creatine Kinase Creatine Kinase Index CK-MB (CK-2) Troponin I B-Natriuretic Peptide Total Protein 7.2 Albumin 2.9 L Urine Color Urine Appearance Urine pH Ur Specific [place] Urine Protein Urine Glucose (UA) Urine Ketones Urine Blood Urine Nitrite Urine Bilirubin Urine Urobilinogen Ur Leukocyte Esterase COVID-19 (ELIGIO) Active Medications Generic Name Dose Route Start Last Admin Trade Name Brad PRN Reason Stop Dose Admin Chlorhexidine Gluconate 1 applic 11/21/19 22:00 Hibiclens For Decolonization - TP HS DONTA Enoxaparin Sodium 40 mg 11/21/19 10:00 11/21/19 10:15 Lovenox - SQ 40 mg BID DONTA Administration Furosemide 40 mg 11/21/19 16:45 Lasix Injection - IVPUSH DAILY DONTA Azithromycin 500 mg in 250 mls @ 250 mls/hr 11/21/19 10:00 11/21/19 10:16 Zithromax 500mg Ivpb (Pre-Docked) IVPB 250 mls/hr DAILY DONTA Administration Ceftriaxone Sodium 2 gm/ 100 mls @ 200 mls/hr 11/21/19 10:15 11/21/19 11:21 Dextrose IVPB 200 mls/hr DAILY DONTA Administration Protocol Insulin Aspart 1 vial 11/21/19 07:00 11/21/19 11:22 Novolog Vial Sliding Scale - SQ Not Given ACHS DONTA Protocol Methylprednisolone Sodium Succinate 40 mg 11/21/19 22:00 Solu-Medrol - IVPUSH BID DONTA Mupirocin 1 applic 11/21/19 10:00 11/21/19 10:16 Bactroban Ointment (For Decolonization) - NS 11/26/19 09:59 1 applic BID DONTA Administration Pantoprazole Sodium 40 mg 11/21/19 10:00 11/21/19 10:15 Protonix Iv IVPUSH 40 mg DAILY DONTA Administration ASSESSMENT/PLAN: Neuro - continue monitoring mental status Cardiac CHF Exacerbation vs COPD exacerbation vs PNA, w/acute hypoxic, hypercarbic respiratory failure - started on IV lasix 40mg - strict monitor I&Os - On BIPAP IPAP 18, EPAP 8 Rate 18, FiO2 50% - repeat ABG, if worsens consider intubation - give solumedrol 125 now - trops neg x1 - start azithromycin ID BL LE Cellulitis and possible PNA - leukocytosis-11.3 - Cont with cftx and azithro - continue to monitor DM -BGM w/ISS DVT Ppx- Lovenox 40 mg SQ q 12h GI Ppx- 40 IV protonix Visit type - Emergency Visit Emergency Visit: Yes ED Registration Date: 11/20/19 Care time: The patient presented to the Emergency Department on the above date and was hospitalized for further evaluation of their emergent condition. - New Patient This patient is new to me today: Yes Date on this admission: 11/21/19 - Critical Care Critical Care patient: Yes Total Critical Care Time (in minutes): 36 Critical Care Statement: The care of this patient involved high complexity decision making to prevent further life threatening deterioration of the patient's condition and/or to evaluate & treat vital organ system(s) failure or risk of failure. - Medication Review Med list reviewed for High Risk Meds patients 65 and older: Yes ATTENDING PHYSICIAN STATEMENT I saw and evaluated the patient. I reviewed the resident's note and discussed the case with the resident. I agree with the resident's findings and plan as documented. SUBJECTIVE: OBJECTIVE: ASSESSMENT AND PLAN:
--- NOTE | 2019-11-21 19:31 | PN ---
Progress Note (short form) - Note Progress Note: Patient sees Dr. Daly in office, their service has been made aware of consult request. Thanks.
[2019-11-21 19:37] LABS: ARTERIAL BLD GAS O2 SATURATION 93.9 mmHg (95-98); ARTERIAL BLOOD GAS BASE EXCESS 9.9 mmol/L (-2-2); ARTERIAL BLOOD GAS PO2 72.2 mmHg (80-100); ARTERIAL BLOOD GAS pH 7.386 (7.350-7.450)
[2019-11-21 19:38] LABS: ALLENS TEST POSITIVE; VENT MODE S/T; VENT RATE 18
--- NOTE | 2019-11-21 19:42 | CONS ---
DATE OF CONSULTATION: DATE OF DICTATION: 11/21/2019 INFECTIOUS DISEASE CONSULTATION HISTORY OF PRESENT ILLNESS: This is a 69-year-old woman who is admitted via the ER. She comes with complaints of worsening edema of 2 weeks with worsening erythema of her legs. She saw her PCP, was given oral antibiotics which originally improved but then recurred after the antibiotics were completed. She also notes shortness of breath and fatigue. She is unable to lay flat at night. She is taking Lasix daily. She denies fevers, chills, and she has noted erythema of her legs. PAST MEDICAL HISTORY: Notable for heart failure, hypertension, hyperlipidemia, VT, COPD. She is oxygen dependent with sleep apnea. She has morbid obesity and diabetes. She has a history of asthma, COPD, GERD, and hypercholesterolemia and hypertension. PAST SURGICAL HISTORY: Not available. This was all obtained from the chart, as the patient is currently on BiPAP and unable to give a history. SOCIAL HISTORY: No history of cigarette, alcohol, or substance abuse. ALLERGIES: No known drug allergies. MEDICATION: Her outpatient medication list could not be confirmed. REVIEW OF SYSTEMS: As well is not available except as outlined in the HPI. FHX not available as patient is on bipap at this time PHYSICAL EXAMINATION: General: She is a morbidly obese woman. Vital Signs: She weighs 159 kg. She is afebrile. Temperature is 97.8. She has had no fevers since admission. Pulse is 78, blood pressure 123/55, respiratory rate 22. She is on BiPAP. HEENT: Normocephalic. Eyes are anicteric. She is wearing the BiPAP mask. Lungs: Diminished breath sounds at the bases. She has distant breath sounds. Heart: She is distant heart sounds. Abdomen: Protuberant, soft. Extremities: Notable for edema and erythema. LABORATORY: White count on admission was 11.3, this morning is 10.8, hemoglobin 13.1, platelets are 171. Her ABG is notable for a pCO2 of 78 and a pH of 7.2. Her BUN and creatinine are 5 and 1.0 with a bicarbonate of 39. LFTs are normal. Her albumin is 2.9. Urinalysis is negative. COVID-19 PCR is negative. Blood cultures are pending. Chest x-ray reveals cardiomegaly with bilateral chest congestion versus infiltrates. IMPRESSION: In summary, this is a morbidly obese 69-year-old woman admitted with acute hypercapnic respiratory failure, chronic obstructive pulmonary disease, bilateral lower extremity cellulitis, morbid obesity, bilateral infiltrates most likely congestion. Would plan Rocephin and Zithromax, which will cover both the cellulitis and her lungs. Will check a legionella urinary antigen, which has been ordered. Further recommendations to follow. Boni [id number] MTDD
--- NOTE | 2019-11-21 19:46 | CON.CARD ---
Consult Consult Specialty:: Cardiology - History of Present Illness History of Present Illness: 69 yo F pmh HTN, HLD, CHF, DM, morbid obesity, presenting with 2 weeks of swelling, increased SOB, warm red swollen legs. Patient visited her PCP and was given PO antibiotics 2 weeks ago, redness and warmth improved but recurred when antibiotic course was completed. She also endorses decreased exercise tolerance, only able to walk across the room before becoming short of breath and fatigued, unable to lay flat at night without difficulty breathing so she sleeps at an incline. She takes Lasix 40mg daily for her edema. Denies fevers, chills, vomiting (intermittent nausea), denies difficulty breathing at rest, chest pain, headache, pain with ambulation. States that there is a tightness in her lower abdomen as she has been gaining weight and noticed redness that hsa expanded up the left thigh and across her lower abdomen. PMH Negative MIBI stress- Mar 2018 at [facility] Ongoing medical problems Diabetes mellitus Hypertension Hyperlipidemia Diastolic CHF Edema COPD NSTEMI Respiratory failure - History Source History Provided By: Medical Record - Past Medical History Cardio/Vascular: Yes: CHF, HTN, Hyperlipdemia, MS Pulmonary: Yes: COPD, O2 Dependent, Sleep Apnea Endocrine: Yes: Diabetes Mellitus - Alcohol/Substance Use Hx Alcohol Use: No - Smoking History Smoking history: Never smoked Have you smoked in the past 12 months: No - Social History Usual Living Arrangement: Alone (in apartment with 5 steps x3 to enter, ambulated with RW/ SC) History of Recent Travel: No Home Medications - Allergies Allergies/Adverse Reactions: Allergies Allergy/AdvReac Type Severity Reaction Status Date / Time No Known Allergies Allergy Verified 11/20/19 16:32 - Home Medications Home Medications: Ambulatory Orders Nebulizer [Airs Disposable Nebulizer] 04/06/18 Alcohol Antiseptic Pads [Alcohol Prep Pads] 1 each TP ASDIR #1 box 04/07/18 Aspirin [ASA -] 81 mg PO DAILY #30 tab.chew 04/07/18 Insulin Glargine,Hum.rec.anlog [Basaglar Kwikpen U-100] 10 unit SQ DAILY #1 insuln.pen 04/07/18 Miscellaneous Medical Supply [Glucometer Device] 1 each .ROUTE ASDIR #1 kit 04/07/18 Miscellaneous Medical Supply [Glucometer Test Strips #50] 1 each .ROUTE ASDIR #1 box 04/07/18 Miscellaneous Medical Supply [Lancets] 1 each .ROUTE ASDIR #1 box 04/07/18 Atorvastatin Ca [Lipitor] 40 mg PO HS tablet 02/03/19 Budesonide/Formeterol Fumarate [SYMBICORT 160/4.5mcg -] 2 puff IH BID #1 inhaler 02/03/19 Cefuroxime Axetil [Ceftin -] 500 mg PO BID #10 tablet 02/03/19 Gabapentin [Neurontin -] 300 mg PO TID #30 capsule 02/03/19 Losartan Potassium [Cozaar -] 50 mg PO DAILY #30 tablet 02/03/19 Nystatin/Triamcinolone Top Cr [Mycolog II -] 1 applic TP BID applic 02/03/19 Pantoprazole Sodium [Protonix -] 40 mg PO DAILY tablet.ec 02/03/19 Potassium Chloride [K-Dur -] 20 meq PO BID #10 tablet.er 02/03/19 Albuterol 0.083% Nebulizer Gisselle [Ventolin 0.083% Nebulizer Soln -] 1 neb NEB Q6H #30 amp 02/04/19 Albuterol Sulfate [Proair Hfa] 2 puff IH Q6H PRN #1 hfa.aer.ad 02/04/19 Atorvastatin Ca [Lipitor] 40 mg PO HS #30 tablet 02/04/19 Cefuroxime Axetil [Ceftin -] 500 mg PO Q12H #10 tablet 02/04/19 Losartan Potassium [Cozaar -] 50 mg PO DAILY #30 tablet 02/04/19 Albuterol 0.083% Nebulizer Gisselle [Ventolin 0.083% Nebulizer Soln -] 1 neb NEB Q4H #1 box 02/06/19 Budesonide/Formeterol Fumarate [SYMBICORT 160/4.5mcg -] 2 inh PO BID #1 cannister 02/06/19 Furosemide [Lasix -] 40 mg PO DAILY #30 tablet 02/06/19 Gabapentin 300 mg PO TID #90 capsule 02/06/19 Polyethylene Glycol 3350 [Miralax 119 gm Btl -] 17 gm PO BID #1 bottle 02/06/19 Potassium Chloride [K-Dur -] 10 meq PO DAILY #30 tablet.er 02/06/19 Review of Systems - Review of Systems Constitutional: reports: No Symptoms Eyes: reports: No Symptoms HENT: reports: No Symptoms Neck: reports: No Symptoms Cardiovascular: reports: Edema Respiratory: reports: Orthopnea Gastrointestinal: reports: No Symptoms Genitourinary: reports: No Symptoms Breasts: reports: No Symptoms Reported Musculoskeletal: reports: No Symptoms Integumentary: reports: No Symptoms Neurological: reports: No Symptoms Endocrine: reports: No Symptoms Hematology/Lymphatic: reports: No Symptoms Psychiatric: reports: No Symptoms Vital Signs: Vital Signs Temperature 97.4 F L 11/21/19 18:00 Pulse Rate 70 11/21/19 18:00 Respiratory Rate 20 11/21/19 18:00 Blood Pressure 112/78 11/21/19 18:00 O2 Sat by Pulse Oximetry (%) 98 11/21/19 18:00 Constitutional: Yes: Well Nourished, No Distress, Calm Eyes: Yes: WNL, Conjunctiva Clear, EOM Intact HENT: Yes: WNL, Atraumatic, Normocephalic Neck: Yes: WNL, Supple, Trachea Midline Respiratory: Yes: Diminished Gastrointestinal: Yes: WNL, Normal Bowel Sounds Renal/: Yes: WNL Cardiovascular: Yes: WNL, Regular Rate and Rhythm Musculoskeletal: Yes: WNL Extremities: Yes: Erythema Edema: Yes Integumentary: Yes: WNL Neurological: Yes: WNL, Alert, Oriented ...Motor Strength: WNL Psychiatric: Yes: WNL, Alert, Oriented - Other Data Labs, Other Data: CBC, BMP 11/21/19 10:02 11/21/19 10:02 INR, PTT INR 1.08 (0.83-1.09) 11/20/19 20:10 Troponin, BNP 11/20/19 20:10 Troponin I < 0.02 B-Natriuretic Peptide 2471.8 H Troponin, BNP 11/20/19 20:10 Troponin I < 0.02 B-Natriuretic Peptide 2471.8 H Imaging - Results Chest X-ray: Image Reviewed (cm chf) EKG: Image Reviewed (sr nonspecific rep abn) Other: Report Reviewed (echo nl ef no rwma) Problem List - Problems (1) CHF (congestive heart failure) Code(s): I50.9 - HEART FAILURE, UNSPECIFIED Qualifiers: Heart failure type: unspecified Heart failure chronicity: acute on chronic Qualified Code(s): I50.9 - Heart failure, unspecified (2) Cellulitis Code(s): L03.90 - CELLULITIS, UNSPECIFIED Qualifiers: Site of cellulitis: extremity Site of cellulitis of extremity: lower extremity Laterality: unspecified laterality Qualified Code(s): L03.119 - Cellulitis of unspecified part of limb (3) JUANCARLOS (acute kidney injury) Code(s): N17.9 - ACUTE KIDNEY FAILURE, UNSPECIFIED (4) Acute on chronic diastolic (congestive) heart failure Code(s): I50.33 - ACUTE ON CHRONIC DIASTOLIC (CONGESTIVE) HEART FAILURE (5) Acute on chronic respiratory failure with hypoxia and hypercapnia Code(s): J96.21 - ACUTE AND CHRONIC RESPIRATORY FAILURE WITH HYPOXIA; J96.22 - ACUTE AND CHRONIC RESPIRATORY FAILURE WITH HYPERCAPNIA (6) Acute on chronic respiratory failure with hypoxia and hypercapnia Code(s): J96.21 - ACUTE AND CHRONIC RESPIRATORY FAILURE WITH HYPOXIA; J96.22 - ACUTE AND CHRONIC RESPIRATORY FAILURE WITH HYPERCAPNIA (7) CHF exacerbation Code(s): I50.9 - HEART FAILURE, UNSPECIFIED Qualifiers: Heart failure type: unspecified Qualified Code(s): I50.9 - Heart failure, unspecified (8) COPD exacerbation Code(s): J44.1 - CHRONIC OBSTRUCTIVE PULMONARY DISEASE W (ACUTE) EXACERBATION (9) Dehydration Code(s): E86.0 - DEHYDRATION (10) Diastolic CHF Code(s): I50.30 - UNSPECIFIED DIASTOLIC (CONGESTIVE) HEART FAILURE (11) Elevated troponin Code(s): R79.89 - OTHER SPECIFIED ABNORMAL FINDINGS OF BLOOD CHEMISTRY (12) [place] cardiac risk >20% in next 10 years Code(s): Z91.89 - OTH PERSONAL RISK FACTORS, NOT ELSEWHERE CLASSIFIED (13) HLD (hyperlipidemia) Code(s): E78.5 - HYPERLIPIDEMIA, UNSPECIFIED (14) HTN (hypertension) Code(s): I10 - ESSENTIAL (PRIMARY) HYPERTENSION Qualifiers: Hypertension type: renovascular hypertension Qualified Code(s): I15.0 - Renovascular hypertension (15) Hypercapnic respiratory failure Code(s): J96.92 - RESPIRATORY FAILURE, UNSPECIFIED WITH HYPERCAPNIA Qualifiers: Chronicity: unspecified Qualified Code(s): J96.92 - Respiratory failure, unspecified with hypercapnia (16) Leukocytosis Code(s): D72.829 - ELEVATED WHITE BLOOD CELL COUNT, UNSPECIFIED (17) NSTEMI (non-ST elevated myocardial infarction) Code(s): I21.4 - NON-ST ELEVATION (NSTEMI) MYOCARDIAL INFARCTION (18) Obesity, morbid, BMI 50 or higher Code(s): E66.01 - MORBID (SEVERE) OBESITY DUE TO EXCESS CALORIES (19) Pneumonia Code(s): J18.9 - PNEUMONIA, UNSPECIFIED ORGANISM Qualifiers: Aspiration pneumonia type: unspecified Laterality: unspecified laterality Lung location: unspecified part of lung (20) RSV (acute bronchiolitis due to respiratory syncytial virus) Code(s): J21.0 - ACUTE BRONCHIOLITIS DUE TO RESPIRATORY SYNCYTIAL VIRUS (21) Respiratory failure Code(s): J96.90 - RESPIRATORY FAILURE, UNSP, UNSP W HYPOXIA OR HYPERCAPNIA Qualifiers: Chronicity: unspecified Respiratory failure complication: hypoxia and hypercapnia Qualified Code(s): J96.91 - Respiratory failure, unspecified with hypoxia; J96.92 - Respiratory failure, unspecified with hypercapnia (22) Diabetes Code(s): E11.9 - TYPE 2 DIABETES MELLITUS WITHOUT COMPLICATIONS Assessment/Plan Imp; Respiratory failure hypercapnic Respiratory acidosis CHF diastolic decompensated Diabetes mellitus Hypertension Hyperlipidemia Edema COPD Plan; IV Lasix DVT plx ABX Steroids cc time spent 70 min
--- NOTE | 2019-11-21 21:36 | HOSP ---
Subjective - Review of Symptoms General: No: Chills, Night Sweats, Fatigue, Malaise, Appetite, Other Pulmonary: Yes: Other (SOB ) Cardiovascular: Yes: Orthopnea, Edema Gastrointestinal: No: Nausea, NOSYM, Vomiting, Abdominal Pain, Diarrhea, Const ipation, Melena, Hematochezia, Other Musculoskeletal: No: No Symptoms, Back Pain, Crepitus, Decreased ROM, Extremity Pain, Joint Pain, Joint Swelling, Muscle Pain, Muscle Cramps, Muscle Weakness, Other Neurological: No: Weakness, Numbness, Incoordination, Change in speech, Confusion, Seizures, Other Physical Examination Vital Signs: Vital Signs Temperature 97.4 F L 11/21/19 18:00 Pulse Rate 70 11/21/19 18:00 Respiratory Rate 20 11/21/19 18:00 Blood Pressure 112/78 11/21/19 18:00 O2 Sat by Pulse Oximetry (%) 98 11/21/19 18:00 Constitutional: Yes: No Distress Eyes: Yes: WNL HENT: Yes: WNL Neck: Yes: WNL Cardiovascular: Yes: WNL Respiratory: Yes: On BiPap, On Nasal O2, Rhonchi Gastrointestinal: Yes: WNL, Abdomen, Obese, Other (Abdomen is warm with skin changes similar to that of cellulitis on legs) ...Rectal Exam: Yes: Deferred Renal/: Yes: Villalba Present Musculoskeletal: Yes: WNL Extremities: Yes: Erythema, Other Edema: Yes (BL Leg edema, warm ) Edema: LLE: 1+, RLE: 1+ Peripheral Pulses WNL: Yes Integumentary: Yes: Erythema, Venous Stasis Changes Neurological: Yes: WNL, Alert, Oriented ...Motor Strength: WNL Psychiatric: Yes: WNL Labs: CBC, BMP 11/21/19 10:02 11/21/19 10:02 Hospitalist Encounter Assessment: Patient is a 69 year old woman with a PMH of HTN, HLD, HFpEF, NIDDM and Morbid obesity who presented to the ER with two weeks of progressively worsening SOB and BL leg swelling. Patient admitted for CHF exacerbation with BL LL cellulitis. Acute on Chronic Hypoxic and Hypercapneic Respiratory Failure: 2/2 diastolic CHF exacerbation vs PNA - 40 mg IV lasixs daily - strict monitor I&Os - continue Bipap at night - solumedrol 40 IV BID - Azithromycin day 1 BL LE Cellulitis - leukocytosis - improving - Cefazolin day 2 - skin changes on abdomen, possible cellulitis, continue to monitor DM - BGM w/ISS DVT Ppx - Lovenox 40 mg SQ q12h GI Ppx - 40 IV protonix FEN: - strict I&Os - Sodium controlled and diabetic diet DISPO: Patient is now awake, alert, and in no distress. Able to be off BIPAP on NC. Now stable for transfer for continuing monitoring on tele. Visit type - Medication Review Med list reviewed for High Risk Meds patients 65 and older: Yes - Emergency Visit Emergency Visit: Yes ED Registration Date: 11/20/19 Care time: The patient presented to the Emergency Department on the above date and was hospitalized for further evaluation of their emergent condition. - New Patient This patient is new to me today: No - Critical Care Critical Care patient: Yes Total Critical Care Time (in minutes): 35 Critical Care Statement: The care of this patient involved high complexity decision making to prevent further life threatening deterioration of the patient's condition and/or to evaluate & treat vital organ system(s) failure or risk of failure.
[2019-11-21] MEDS ORDERED: CHLORHEXIDINE GLUCONATE 4% CLEANSER FOR DECOLONIZATION TP SCH ×2 (22:00)
[2019-11-21] MEDS ORDERED: methylPREDNISolone NA SUCC 40 MG/1 ML VIAL IVPUSH SCH (22:00)
[2019-11-22 06:20] LABS: ARTERIAL BLD GAS O2 SATURATION 96.5 mmHg (95-98); ARTERIAL BLOOD GAS BASE EXCESS 9.9 mmol/L (-2-2); ARTERIAL BLOOD GAS PO2 87.4 mmHg (80-100)
[2019-11-22 06:22] LABS: ALLENS TEST POSITIVE
[2019-11-22 06:23] LABS: VENT MODE S/T; VENT RATE 18
[2019-11-22] MEDS: INSULIN SLIDING SCALE (NOVOLOG) 1 VIAL SQ SCH ×4 (06:48→22:09)
--- NOTE | 2019-11-22 07:15 | PN ---
Progress Note, Physician Chief Complaint: SEEN IN ICU AWAKE ALERT ON 02 NC MUCH MORE COMFORTABLE - Current Medication List Current Medications: Active Medications Chlorhexidine Gluconate (Hibiclens For Decolonization -) 1 applic TP HS [facility] Enoxaparin Sodium (Lovenox -) 40 mg SQ BID [facility] Furosemide (Lasix Injection -) 40 mg IVPUSH DAILY [facility] Ceftriaxone Sodium 2 gm/ (Dextrose) 100 mls @ 200 mls/hr IVPB DAILY [facility]; Protocol Azithromycin (Zithromax 500mg Ivpb (Pre-Docked)) 500 mg in 250 mls @ 250 mls/hr IVPB DAILY [facility] Insulin Aspart (Novolog Vial Sliding Scale -) 1 vial SQ ACHS [facility]; Protocol Last Admin: 11/22/19 06:48 Dose: 2 units Documented by: Methylprednisolone Sodium Succinate (Solu-Medrol -) 40 mg IVPUSH BID [facility] Mupirocin (Bactroban Ointment (For Decolonization) -) 1 applic NS BID [facility] Stop: 11/26/19 09:59 Pantoprazole Sodium (Protonix Iv) 40 mg IVPUSH DAILY [facility] - Objective Vital Signs: Vital Signs Temperature 98.8 F 11/22/19 05:46 Pulse Rate 75 11/22/19 05:46 Respiratory Rate 20 11/22/19 05:46 Blood Pressure 119/65 11/22/19 05:46 O2 Sat by Pulse Oximetry (%) 99 11/22/19 05:46 Constitutional: Yes: Mild Distress Cardiovascular: Yes: Regular Rate and Rhythm Respiratory: Yes: Diminished, On Nasal O2 Gastrointestinal: Yes: Soft, Abdomen, Obese Genitourinary: Yes: Incontinence Musculoskeletal: Yes: Muscle Weakness Neurological: Yes: Pre-Existing Deficit Labs: INR, PTT INR 1.08 (0.83-1.09) 11/20/19 20:10 Problem List - Problems (1) CHF (congestive heart failure) Code(s): I50.9 - HEART FAILURE, UNSPECIFIED Qualifiers: Heart failure type: unspecified Heart failure chronicity: acute on chronic Qualified Code(s): I50.9 - Heart failure, unspecified (2) Cellulitis Code(s): L03.90 - CELLULITIS, UNSPECIFIED Qualifiers: Site of cellulitis: extremity Site of cellulitis of extremity: lower extremity Laterality: unspecified laterality Qualified Code(s): L03.119 - Cellulitis of unspecified part of limb (3) Acute on chronic diastolic (congestive) heart failure Code(s): I50.33 - ACUTE ON CHRONIC DIASTOLIC (CONGESTIVE) HEART FAILURE (4) Acute on chronic respiratory failure with hypoxia and hypercapnia Code(s): J96.21 - ACUTE AND CHRONIC RESPIRATORY FAILURE WITH HYPOXIA; J96.22 - ACUTE AND CHRONIC RESPIRATORY FAILURE WITH HYPERCAPNIA (5) Hypercapnic respiratory failure Code(s): J96.92 - RESPIRATORY FAILURE, UNSPECIFIED WITH HYPERCAPNIA Qualifiers: Chronicity: unspecified Qualified Code(s): J96.92 - Respiratory failure, unspecified with hypercapnia (6) Obesity, morbid, BMI 50 or higher Code(s): E66.01 - MORBID (SEVERE) OBESITY DUE TO EXCESS CALORIES (7) Diabetes Code(s): E11.9 - TYPE 2 DIABETES MELLITUS WITHOUT COMPLICATIONS Assessment/Plan IV ABX FOR CELLULITIS OF LEGS ID F/U APPRECIATED BIPAP FOR RESP SUPPORT AT NIGHT LEONIDES OOB TO CHAIR PT EVAL DVT PROPHYLAXIS HENREITTA REVIEWED DC PLANNING
[2019-11-22 07:30] LABS: BASO % 0.4 % (0-2.0); HEMATOCRIT 40.8 % (32.4-45.2); HEMOGLOBIN 12.5 GM/dL (10.7-15.3); LYMPH % 7.1 % (8-40); MCH 25.5 pg (25.7-33.7); MCHC 30.6 g/dl (32.0-36.0); MEAN CELL VOLUME 83.4 fl (80-96); MEAN PLT VOLUME 10.5 fl (7.5-11.1); MONO % 2.9 % (3.8-10.2); NEUT % 89.6 % (42.8-82.8); PLATELET COUNT 171 K/MM3 (134-434); RBC 4.89 M/mm3 (3.60-5.2); RDW 17.3 % (11.6-15.6); WHITE BLOOD COUNT 10.9 K/mm3 (4.0-10.0)
[2019-11-22 07:32] LABS: ALBUMIN 2.6 g/dl (3.4-5.0); BILIRUBIN,TOTAL 0.6 mg/dL (0.2-1); BLOOD UREA NITROGEN 18.3 mg/dL (7-18); CALCIUM 8.7 mg/dL (8.5-10.1); CREATININE 0.8 mg/dL (0.55-1.3); MAGNESIUM 1.8 mg/dL (1.8-2.4); PHOSPHOROUS 3.5 mg/dL (2.5-4.9); TOT PROT 6.6 g/dl (6.4-8.2)
[2019-11-22] MEDS ORDERED: DEXTROSE 5%-WATER 100 ML IVPB ONE (08:31)
[2019-11-22] MEDS: methylPREDNISolone NA SUCC 40 MG/1 ML VIAL IVPUSH SCH ×2 (09:13→22:09)
[2019-11-22] MEDS: ENOXAPARIN NA (PORCINE) 40 MG/0.4 ML DISP.SYRIN SQ SCH ×2 (09:16→22:09)
[2019-11-22] MEDS: FUROSEMIDE 40 MG/4 ML INJECTABLE VIAL IVPUSH SCH (09:16)
[2019-11-22] MEDS: PANTOPRAZOLE SODIUM 40 MG VIAL IVPUSH SCH (09:16)
[2019-11-22] MEDS: CEFTRIAXONE 2 GM in DEXTROSE 5%-WATER 100 ML IVPB SCH (09:26)
[2019-11-22] MEDS ORDERED: AZITHROMYCIN IVPB 500 MG/250 ML BAG IVPB SCH (10:00)
[2019-11-22] MEDS ORDERED: methylPREDNISolone NA SUCC 125 MG/2 ML VIAL IVPUSH SCH (10:00)
[2019-11-22 11:18] LABS: PLATELET ESTIMATE NORMAL
--- NOTE | 2019-11-22 12:21 | PN ---
Progress Note (short form) - Note Progress Note: PULMONARY More alert, awake. Breathing better today. Vital Signs Period Temp Pulse Resp BP Sys/Garner Pulse Ox Last 24 Hr 97.4 F-98.8 F 70-82 20-22 106-123/45-90 95-99 Intake & Output 11/19/19 11/20/19 11/21/19 11/22/19 23:59 23:59 23:59 23:59 Intake Total 750 Output Total 2950 350 Balance -2200 -350 Weight 148.325 kg 159.665 kg 158.576 kg Gen: more alert, awake Heart: RRR Lung: decreased breath sounds at the bases Abd: soft, nontender Ext: + edema, +erythema CBC, BMP 11/22/19 05:35 11/22/19 05:35 ABG Results ABG pH 7.410 (7.350-7.450) 11/22/19 05:55 ABG HCO3 36.6 mmol/L (22-27) H 11/22/19 05:55 ABG O2 Sat (Measured) 96.5 mmHg (95-98) 11/22/19 05:55 ABG O2 Content No Result Required. 11/22/19 05:55 ABG Base Excess 9.9 mmol/L (-2-2) H 11/22/19 05:55 Active Medications Chlorhexidine Gluconate (Hibiclens For Decolonization -) 1 applic TP HS [facility] Enoxaparin Sodium (Lovenox -) 40 mg SQ BID [facility] Last Admin: 11/22/19 09:16 Dose: 40 mg Documented by: Furosemide (Lasix Injection -) 40 mg IVPUSH DAILY [facility] Last Admin: 11/22/19 09:16 Dose: 40 mg Documented by: Ceftriaxone Sodium 2 gm/ (Dextrose) 100 mls @ 200 mls/hr IVPB DAILY [facility]; Protocol Last Admin: 11/22/19 09:26 Dose: 200 mls/hr Documented by: Azithromycin (Zithromax 500mg Ivpb (Pre-Docked)) 500 mg in 250 mls @ 250 mls/hr IVPB DAILY [facility] Last Admin: 11/22/19 09:12 Dose: 250 mls/hr Documented by: Insulin Aspart (Novolog Vial Sliding Scale -) 1 vial SQ ACHS [facility]; Protocol Last Admin: 11/22/19 06:48 Dose: 2 units Documented by: Methylprednisolone Sodium Succinate (Solu-Medrol -) 40 mg IVPUSH BID [facility] Last Admin: 11/22/19 09:13 Dose: 40 mg Documented by: Mupirocin (Bactroban Ointment (For Decolonization) -) 1 applic NS BID [facility] Stop: 11/26/19 09:59 Pantoprazole Sodium (Protonix Iv) 40 mg IVPUSH DAILY [facility] Last Admin: 11/22/19 09:16 Dose: 40 mg Documented by: A/P Acute on Chronic Hypoxic and Hypercapneic Respiratory Failure Cellulitis Acute on Chronic Diastolic Heart Failure LEONIDES/OHS HTN DM Morbid Obesity - continue lasix - monitor urine output, creatinine - O2 to keep SpO2 >90% - BiPAP at night and PRN during day - continue antibiotics - f/u cultures - empiric medrol for now - inhaled bronchodilators - DVT prophylaxis
[2019-11-22] MEDS: MUPIROCIN 2% TOPICAL OINTMENT FOR DECOLONIZATION NS SCH ×2 (12:44→21:35)
[2019-11-22] MEDS ORDERED: INSULIN (NOVOLOG) ASPART 100 UNITS/ML 10ML VIAL ONE ×2 (14:03→17:52)
--- NOTE | 2019-11-22 14:41 | PN ---
Progress Note, Physician History of Present Illness: 69 yo F pmh HTN, HLD, CHF, DM, morbid obesity, presenting with 2 weeks of swelling, increased SOB, warm red swollen legs. Patient visited her PCP and was given PO antibiotics 2 weeks ago, redness and warmth improved but recurred when antibiotic course was completed. She also endorses decreased exercise tolerance, only able to walk across the room before becoming short of breath and fatigued, unable to lay flat at night without difficulty breathing so she sleeps at an incline. She takes Lasix 40mg daily for her edema. Denies fevers, chills, vomiting (intermittent nausea), denies difficulty breathing at rest, chest pain, headache, pain with ambulation. States that there is a tightness in her lower abdomen as she has been gaining weight and noticed redness that hsa expanded up the left thigh and across her lower abdomen. PMH Negative MIBI stress- Mar 2018 at [facility] Ongoing medical problems Diabetes mellitus Hypertension Hyperlipidemia Diastolic CHF Edema COPD NSTEMI Respiratory failure - Current Medication List Current Medications: Active Medications Chlorhexidine Gluconate (Hibiclens For Decolonization -) 1 applic TP HS [facility] Enoxaparin Sodium (Lovenox -) 40 mg SQ BID [facility] Last Admin: 11/22/19 09:16 Dose: 40 mg Documented by: Furosemide (Lasix Injection -) 40 mg IVPUSH DAILY [facility] Last Admin: 11/22/19 09:16 Dose: 40 mg Documented by: Ceftriaxone Sodium 2 gm/ (Dextrose) 100 mls @ 200 mls/hr IVPB DAILY [facility]; Protocol Last Admin: 11/22/19 09:26 Dose: 200 mls/hr Documented by: Azithromycin (Zithromax 500mg Ivpb (Pre-Docked)) 500 mg in 250 mls @ 250 mls/hr IVPB DAILY [facility] Last Admin: 11/22/19 09:12 Dose: 250 mls/hr Documented by: Insulin Aspart (Novolog Vial Sliding Scale -) 1 vial SQ ACHS [facility]; Protocol Last Admin: 11/22/19 14:08 Dose: 2 units Documented by: Methylprednisolone Sodium Succinate (Solu-Medrol -) 40 mg IVPUSH BID [facility] Last Admin: 11/22/19 09:13 Dose: 40 mg Documented by: Mupirocin (Bactroban Ointment (For Decolonization) -) 1 applic NS BID [facility] Stop: 11/26/19 09:59 Last Admin: 11/22/19 12:44 Dose: Not Given Documented by: Pantoprazole Sodium (Protonix Iv) 40 mg IVPUSH DAILY [facility] Last Admin: 11/22/19 09:16 Dose: 40 mg Documented by: - Objective Vital Signs: Vital Signs Temperature 98.8 F 11/22/19 05:46 Pulse Rate 75 11/22/19 05:46 Respiratory Rate 20 11/22/19 05:46 Blood Pressure 119/65 11/22/19 05:46 O2 Sat by Pulse Oximetry (%) 95 11/22/19 09:00 Eyes: Yes: WNL, Conjunctiva Clear, EOM Intact HENT: Yes: WNL, Atraumatic, Normocephalic Neck: Yes: WNL, Supple, Trachea Midline Cardiovascular: Yes: WNL, Regular Rate and Rhythm Respiratory: Yes: WNL, Regular, CTA Bilaterally Gastrointestinal: Yes: WNL, Normal Bowel Sounds Genitourinary: Yes: WNL Musculoskeletal: Yes: WNL Extremities: Yes: Erythema Edema: Yes Integumentary: Yes: WNL Neurological: Yes: WNL, Alert, Oriented ...Motor Strength: WNL Psychiatric: Yes: WNL Labs: CBC, BMP 11/22/19 05:35 11/22/19 05:35 INR, PTT INR 1.08 (0.83-1.09) 11/20/19 20:10 Problem List - Problems (1) CHF (congestive heart failure) Code(s): I50.9 - HEART FAILURE, UNSPECIFIED Qualifiers: Heart failure type: unspecified Heart failure chronicity: acute on chronic Qualified Code(s): I50.9 - Heart failure, unspecified (2) Cellulitis Code(s): L03.90 - CELLULITIS, UNSPECIFIED Qualifiers: Site of cellulitis: extremity Site of cellulitis of extremity: lower extremity Laterality: unspecified laterality Qualified Code(s): L03.119 - Cellulitis of unspecified part of limb (3) JUANCARLOS (acute kidney injury) Code(s): N17.9 - ACUTE KIDNEY FAILURE, UNSPECIFIED (4) Acute on chronic diastolic (congestive) heart failure Code(s): I50.33 - ACUTE ON CHRONIC DIASTOLIC (CONGESTIVE) HEART FAILURE (5) Acute on chronic respiratory failure with hypoxia and hypercapnia Code(s): J96.21 - ACUTE AND CHRONIC RESPIRATORY FAILURE WITH HYPOXIA; J96.22 - ACUTE AND CHRONIC RESPIRATORY FAILURE WITH HYPERCAPNIA (6) Acute on chronic respiratory failure with hypoxia and hypercapnia Code(s): J96.21 - ACUTE AND CHRONIC RESPIRATORY FAILURE WITH HYPOXIA; J96.22 - ACUTE AND CHRONIC RESPIRATORY FAILURE WITH HYPERCAPNIA (7) CHF exacerbation Code(s): I50.9 - HEART FAILURE, UNSPECIFIED Qualifiers: Heart failure type: unspecified Qualified Code(s): I50.9 - Heart failure, unspecified (8) COPD exacerbation Code(s): J44.1 - CHRONIC OBSTRUCTIVE PULMONARY DISEASE W (ACUTE) EXACERBATION (9) Dehydration Code(s): E86.0 - DEHYDRATION (10) Diastolic CHF Code(s): I50.30 - UNSPECIFIED DIASTOLIC (CONGESTIVE) HEART FAILURE (11) Elevated troponin Code(s): R79.89 - OTHER SPECIFIED ABNORMAL FINDINGS OF BLOOD CHEMISTRY (12) [place] cardiac risk >20% in next 10 years Code(s): Z91.89 - [facility] PERSONAL RISK FACTORS, NOT ELSEWHERE CLASSIFIED (13) HLD (hyperlipidemia) Code(s): E78.5 - HYPERLIPIDEMIA, UNSPECIFIED (14) HTN (hypertension) Code(s): I10 - ESSENTIAL (PRIMARY) HYPERTENSION Qualifiers: Hypertension type: renovascular hypertension Qualified Code(s): I15.0 - Renovascular hypertension (15) Hypercapnic respiratory failure Code(s): J96.92 - RESPIRATORY FAILURE, UNSPECIFIED WITH HYPERCAPNIA Qualifiers: Chronicity: unspecified Qualified Code(s): J96.92 - Respiratory failure, unspecified with hypercapnia (16) Leukocytosis Code(s): D72.829 - ELEVATED WHITE BLOOD CELL COUNT, UNSPECIFIED (17) NSTEMI (non-ST elevated myocardial infarction) Code(s): I21.4 - NON-ST ELEVATION (NSTEMI) MYOCARDIAL INFARCTION (18) Obesity, morbid, BMI 50 or higher Code(s): E66.01 - MORBID (SEVERE) OBESITY DUE TO EXCESS CALORIES (19) Pneumonia Code(s): J18.9 - PNEUMONIA, UNSPECIFIED ORGANISM Qualifiers: Aspiration pneumonia type: unspecified Laterality: unspecified laterality Lung location: unspecified part of lung (20) RSV (acute bronchiolitis due to respiratory syncytial virus) Code(s): J21.0 - ACUTE BRONCHIOLITIS DUE TO RESPIRATORY SYNCYTIAL VIRUS (21) Respiratory failure Code(s): J96.90 - RESPIRATORY FAILURE, UNSP, UNSP W HYPOXIA OR HYPERCAPNIA Qualifiers: Chronicity: unspecified Respiratory failure complication: hypoxia and hypercapnia Qualified Code(s): J96.91 - Respiratory failure, unspecified with hypoxia; J96.92 - Respiratory failure, unspecified with hypercapnia (22) Diabetes Code(s): E11.9 - TYPE 2 DIABETES MELLITUS WITHOUT COMPLICATIONS Assessment/Plan Imp; Respiratory failure hypercapnic Respiratory acidosis CHF diastolic decompensated Diabetes mellitus Hypertension Hyperlipidemia Edema COPD Plan; IV Lasix DVT plx ABX Steroids cc time spent 36 min
--- NOTE | 2019-11-22 17:05 | PN ---
Progress Note (short form) - Note Progress Note: improved alert off bipapa Vital Signs Period Temp Pulse Resp BP Sys/Garner Pulse Ox Last 24 Hr 97.4 F-98.8 F 70-82 20-20 106-140/60-90 95-99 cor-rrr llungs decreased bs at bases abd protuberant, nt ext less erythema CBC, BMP 11/22/19 05:35 11/22/19 05:35 Microbiology 11/21/19 16:00 Urine For Antigen Detection Legionella Antigen - Final 11/21/19 16:00 Urine For Antigen Detection Streptococcus pneumoniae Antigen (M - Final 11/20/19 20:20 Blood - Peripheral Venous Blood Culture - Preliminary NO GROWTH OBTAINED AFTER 24 HOURS, INCUBATION TO CONTINUE FOR 4 DAYS. 11/20/19 20:10 Blood - Peripheral Venous Blood Culture - Preliminary NO GROWTH OBTAINED AFTER 24 HOURS, INCUBATION TO CONTINUE FOR 4 DAYS. Active Medications Chlorhexidine Gluconate (Hibiclens For Decolonization -) 1 applic TP [facility] Enoxaparin Sodium (Lovenox -) 40 mg SQ BID [facility] Last Admin: 11/22/19 09:16 Dose: 40 mg Documented by: Furosemide (Lasix Injection -) 40 mg IVPUSH DAILY [facility] Last Admin: 11/22/19 09:16 Dose: 40 mg Documented by: Ceftriaxone Sodium 2 gm/ (Dextrose) 100 mls @ 200 mls/hr IVPB DAILY [facility]; Protocol Last Admin: 11/22/19 09:26 Dose: 200 mls/hr Documented by: Azithromycin (Zithromax 500mg Ivpb (Pre-Docked)) 500 mg in 250 mls @ 250 mls/hr IVPB DAILY [facility] Last Admin: 11/22/19 09:12 Dose: 250 mls/hr Documented by: Insulin Aspart (Novolog Vial Sliding Scale -) 1 vial SQ ACHS [facility]; Protocol Last Admin: 11/22/19 14:08 Dose: 2 units Documented by: Methylprednisolone Sodium Succinate (Solu-Medrol -) 40 mg IVPUSH BID [facility] Last Admin: 11/22/19 09:13 Dose: 40 mg Documented by: Mupirocin (Bactroban Ointment (For Decolonization) -) 1 applic NS BID [facility] Stop: 11/26/19 09:59 Last Admin: 11/22/19 12:44 Dose: Not Given Documented by: Pantoprazole Sodium (Protonix Iv) 40 mg IVPUSH DAILY [facility] Last Admin: 11/22/19 09:16 Dose: 40 mg Documented by: a/p hypercapneic respiratory failure/COPD bilateral LE cellulitis morbid obesity bilateral infiltrates most likelly congestion improved continue rocephin for celllulitis can d/c zithromax
[2019-11-22] MEDS: CHLORHEXIDINE GLUCONATE 4% CLEANSER FOR DECOLONIZATION TP SCH (21:35)
[2019-11-23] MEDS: INSULIN SLIDING SCALE (NOVOLOG) 1 VIAL SQ SCH ×4 (06:33→21:41)
--- NOTE | 2019-11-23 07:10 | PN ---
Progress Note, Physician History of Present Illness: PULMONARY ALERT,SITTING UP IN BED ON NASAL O2,COMFORTABLE - Current Medication List Current Medications: Active Medications Chlorhexidine Gluconate (Hibiclens For Decolonization -) 1 applic TP HS [facility] Last Admin: 11/22/19 21:35 Dose: Not Given Documented by: Enoxaparin Sodium (Lovenox -) 40 mg SQ BID [facility] Last Admin: 11/22/19 22:09 Dose: 40 mg Documented by: Furosemide (Lasix Injection -) 40 mg IVPUSH DAILY [facility] Last Admin: 11/22/19 09:16 Dose: 40 mg Documented by: Ceftriaxone Sodium 2 gm/ (Dextrose) 100 mls @ 200 mls/hr IVPB DAILY [facility]; Protocol Last Admin: 11/22/19 09:26 Dose: 200 mls/hr Documented by: Insulin Aspart (Novolog Vial Sliding Scale -) 1 vial SQ [facility]; Protocol Last Admin: 11/23/19 06:33 Dose: 2 units Documented by: Methylprednisolone Sodium Succinate (Solu-Medrol -) 40 mg IVPUSH BID [facility] Last Admin: 11/22/19 22:09 Dose: 40 mg Documented by: Mupirocin (Bactroban Ointment (For Decolonization) -) 1 applic NS BID [facility] Stop: 11/26/19 09:59 Last Admin: 11/22/19 21:35 Dose: Not Given Documented by: Pantoprazole Sodium (Protonix Iv) 40 mg IVPUSH DAILY [facility] Last Admin: 11/22/19 09:16 Dose: 40 mg Documented by: - Objective Vital Signs: Vital Signs Temperature 97.9 F 11/23/19 02:00 Pulse Rate 70 11/23/19 02:00 Respiratory Rate 20 11/23/19 02:00 Blood Pressure 140/74 11/23/19 02:00 O2 Sat by Pulse Oximetry (%) 98 11/23/19 05:09 Constitutional: Yes: Calm, Diaphoresis Eyes: Yes: WNL HENT: Yes: WNL Neck: Yes: WNL Cardiovascular: Yes: Regular Rate and Rhythm, S1, S2 Respiratory: Yes: Diminished Gastrointestinal: Yes: Normal Bowel Sounds, Soft, Abdomen, Obese Extremities: Yes: WNL Edema: Yes Labs: Laboratory Tests 11/22/19 05:55 ABG pH 7.410 ABG pCO2 59.10 H ABG pO2 87.4 ABG HCO3 36.6 H O2 Delivery Device Bipap Vent Rate 18 Mechanical Rate Bipap Pressure Support Vent 18/8 Assessment/Plan A/P Acute on Chronic Hypoxic and Hypercapneic Respiratory Failure Cellulitis Acute on Chronic Diastolic Heart Failure LEONIDES/OHS HTN DM Morbid Obesity - continue lasix - monitor urine output, creatinine - O2 to keep SpO2 >90% - BiPAP at night and PRN during day - continue antibiotics - f/u cultures - empiric medrol X 48HRS - inhaled bronchodilators - DVT prophylaxis DR GUERRERO
--- NOTE | 2019-11-23 09:16 | PN ---
Progress Note, Physician - Current Medication List Current Medications: Active Medications Chlorhexidine Gluconate (Hibiclens For Decolonization -) 1 applic TP HS [facility] Last Admin: 11/22/19 21:35 Dose: Not Given Documented by: Enoxaparin Sodium (Lovenox -) 40 mg SQ BID [facility] Last Admin: 11/22/19 22:09 Dose: 40 mg Documented by: Furosemide (Lasix Injection -) 40 mg IVPUSH DAILY [facility] Last Admin: 11/22/19 09:16 Dose: 40 mg Documented by: Ceftriaxone Sodium 2 gm/ (Dextrose) 100 mls @ 200 mls/hr IVPB DAILY [facility]; Protocol Last Admin: 11/22/19 09:26 Dose: 200 mls/hr Documented by: Insulin Aspart (Novolog Vial Sliding Scale -) 1 vial SQ [facility]; Protocol Last Admin: 11/23/19 06:33 Dose: 2 units Documented by: Methylprednisolone Sodium Succinate (Solu-Medrol -) 40 mg IVPUSH BID [facility] Last Admin: 11/22/19 22:09 Dose: 40 mg Documented by: Mupirocin (Bactroban Ointment (For Decolonization) -) 1 applic NS BID [facility] Stop: 11/26/19 09:59 Last Admin: 11/22/19 21:35 Dose: Not Given Documented by: Pantoprazole Sodium (Protonix Iv) 40 mg IVPUSH DAILY [facility] Last Admin: 11/22/19 09:16 Dose: 40 mg Documented by: - Objective Vital Signs: Vital Signs Temperature 97.3 F L 11/23/19 06:00 Pulse Rate 69 11/23/19 06:00 Respiratory Rate 20 11/23/19 06:00 Blood Pressure 135/77 11/23/19 06:00 O2 Sat by Pulse Oximetry (%) 92 L 11/23/19 06:00 Cardiovascular: Yes: S1, S2 Respiratory: Yes: On Nasal O2, Rales Gastrointestinal: Yes: Normal Bowel Sounds, Soft Extremities: Yes: Erythema Edema: Yes Labs: CBC, BMP 11/22/19 05:35 11/22/19 05:35 INR, PTT INR 1.08 (0.83-1.09) 11/20/19 20:10 Problem List - Problems (1) CHF (congestive heart failure) Assessment/Plan: iv lasix follow labs Code(s): I50.9 - HEART FAILURE, UNSPECIFIED Qualifiers: Heart failure type: unspecified Heart failure chronicity: acute on chronic Qualified Code(s): I50.9 - Heart failure, unspecified (2) Cellulitis Assessment/Plan: iv abx id on case Code(s): L03.90 - CELLULITIS, UNSPECIFIED Qualifiers: Site of cellulitis: extremity Site of cellulitis of extremity: lower extremity Laterality: unspecified laterality Qualified Code(s): L03.119 - Cellulitis of unspecified part of limb (3) Acute on chronic respiratory failure with hypoxia and hypercapnia Assessment/Plan: bipap per pulm Code(s): J96.21 - ACUTE AND CHRONIC RESPIRATORY FAILURE WITH HYPOXIA; J96.22 - ACUTE AND CHRONIC RESPIRATORY FAILURE WITH HYPERCAPNIA (4) HTN (hypertension) Assessment/Plan: controlled Vital Signs Period Temp Pulse Resp BP Sys/Garner Pulse Ox Last 24 Hr 97.3 F-98.3 F 69-80 20-20 129-140/71-83 92-98 Code(s): I10 - ESSENTIAL (PRIMARY) HYPERTENSION Qualifiers: Hypertension type: renovascular hypertension Qualified Code(s): I15.0 - Renovascular hypertension
[2019-11-23] MEDS ORDERED: DEXTROSE 5%-WATER 100 ML IVPB ONE (09:37)
[2019-11-23 10:32] LABS: BASO % 0.4 % (0-2.0); HEMATOCRIT 44.4 % (32.4-45.2); HEMOGLOBIN 13.4 GM/dL (10.7-15.3); LYMPH % 7.2 % (8-40); MCHC 30.3 g/dl (32.0-36.0); MEAN CELL VOLUME 82.7 fl (80-96); MEAN PLT VOLUME 9.6 fl (7.5-11.1); MONO % 6.6 % (3.8-10.2); NEUT % 85.8 % (42.8-82.8); PLATELET COUNT 187 K/MM3 (134-434); RBC 5.37 M/mm3 (3.60-5.2); RDW 17.5 % (11.6-15.6); WHITE BLOOD COUNT 12.4 K/mm3 (4.0-10.0)
[2019-11-23 10:54] LABS: BLOOD UREA NITROGEN 23.7 mg/dL (7-18); CALCIUM 9.1 mg/dL (8.5-10.1); CREATININE 0.8 mg/dL (0.55-1.3); POTASSIUM 4.2 mmol/L (3.5-5.1)
[2019-11-23] MEDS: ENOXAPARIN NA (PORCINE) 40 MG/0.4 ML DISP.SYRIN SQ SCH ×2 (11:10→21:37)
[2019-11-23] MEDS: CEFTRIAXONE 2 GM in DEXTROSE 5%-WATER 100 ML IVPB SCH (11:10)
[2019-11-23] MEDS: PANTOPRAZOLE SODIUM 40 MG VIAL IVPUSH SCH (11:10)
[2019-11-23] MEDS: FUROSEMIDE 40 MG/4 ML INJECTABLE VIAL IVPUSH SCH (11:10)
[2019-11-23] MEDS: methylPREDNISolone NA SUCC 40 MG/1 ML VIAL IVPUSH SCH ×2 (11:10→21:37)
[2019-11-23] MEDS: MUPIROCIN 2% TOPICAL OINTMENT FOR DECOLONIZATION NS SCH ×2 (11:10→21:36)
--- NOTE | 2019-11-23 11:16 | PN ---
Progress Note, Physician History of Present Illness: 69 yo F pmh HTN, HLD, CHF, DM, morbid obesity, presenting with 2 weeks of swelling, increased SOB, warm red swollen legs. Patient visited her PCP and was given PO antibiotics 2 weeks ago, redness and warmth improved but recurred when antibiotic course was completed. She also endorses decreased exercise tolerance, only able to walk across the room before becoming short of breath and fatigued, unable to lay flat at night without difficulty breathing so she sleeps at an incline. She takes Lasix 40mg daily for her edema. Denies fevers, chills, vomiting (intermittent nausea), denies difficulty breathing at rest, chest pain, headache, pain with ambulation. States that there is a tightness in her lower abdomen as she has been gaining weight and noticed redness that hsa expanded up the left thigh and across her lower abdomen. PMH Negative MIBI stress- Mar [address] [facility] Ongoing medical problems Diabetes mellitus Hypertension Hyperlipidemia Diastolic CHF Edema COPD NSTEMI Respiratory failure - Current Medication List Current Medications: Active Medications Chlorhexidine Gluconate (Hibiclens For Decolonization -) 1 applic TP HS [facility] Last Admin: 11/22/19 21:35 Dose: Not Given Documented by: Enoxaparin Sodium (Lovenox -) 40 mg SQ BID [facility] Last Admin: 11/23/19 11:10 Dose: 40 mg Documented by: Furosemide (Lasix Injection -) 40 mg IVPUSH DAILY [facility] Last Admin: 11/23/19 11:10 Dose: 40 mg Documented by: Ceftriaxone Sodium 2 gm/ (Dextrose) 100 mls @ 200 mls/hr IVPB DAILY [facility]; Protocol Last Admin: 11/23/19 11:10 Dose: 200 mls/hr Documented by: Insulin Aspart (Novolog Vial Sliding Scale -) 1 vial SQ ACHS [facility]; Protocol Last Admin: 11/23/19 06:33 Dose: 2 units Documented by: Methylprednisolone Sodium Succinate (Solu-Medrol -) 40 mg IVPUSH BID [facility] Last Admin: 11/23/19 11:10 Dose: 40 mg Documented by: Mupirocin (Bactroban Ointment (For Decolonization) -) 1 applic NS BID [facility] Stop: 11/26/19 09:59 Last Admin: 11/23/19 11:10 Dose: Not Given Documented by: Pantoprazole Sodium (Protonix Iv) 40 mg IVPUSH DAILY [facility] Last Admin: 11/23/19 11:10 Dose: 40 mg Documented by: - Objective Vital Signs: Vital Signs Temperature 97.3 F L 11/23/19 06:00 Pulse Rate 69 11/23/19 06:00 Respiratory Rate 11/23/19 06:00 Blood Pressure 135/77 11/23/19 06:00 O2 Sat by Pulse Oximetry (%) 92 L 11/23/19 06:00 Eyes: Yes: WNL, Conjunctiva Clear, EOM Intact HENT: Yes: WNL, Atraumatic, Normocephalic Neck: Yes: WNL, Supple, Trachea Midline Cardiovascular: Yes: WNL, Regular Rate and Rhythm Respiratory: Yes: WNL, Regular, CTA Bilaterally Gastrointestinal: Yes: WNL, Normal Bowel Sounds Genitourinary: Yes: WNL Musculoskeletal: Yes: WNL Extremities: Yes: Erythema Edema: Yes Integumentary: Yes: WNL Neurological: Yes: WNL, Alert, Oriented ...Motor Strength: WNL Psychiatric: Yes: WNL Labs: CBC, BMP 11/23/19 10:18 11/23/19 10:18 INR, PTT INR 1.08 (0.83-1.09) 11/20/19 20:10 Problem List - Problems (1) CHF (congestive heart failure) Code(s): I50.9 - HEART FAILURE, UNSPECIFIED Qualifiers: Heart failure type: unspecified Heart failure chronicity: acute on chronic Qualified Code(s): I50.9 - Heart failure, unspecified (2) Cellulitis Code(s): L03.90 - CELLULITIS, UNSPECIFIED Qualifiers: Site of cellulitis: extremity Site of cellulitis of extremity: lower extremity Laterality: unspecified laterality Qualified Code(s): L03.119 - Cellulitis of unspecified part of limb (3) JUANCARLOS (acute kidney injury) Code(s): N17.9 - ACUTE KIDNEY FAILURE, UNSPECIFIED (4) Acute on chronic diastolic (congestive) heart failure Code(s): I50.33 - ACUTE ON CHRONIC DIASTOLIC (CONGESTIVE) HEART FAILURE (5) Acute on chronic respiratory failure with hypoxia and hypercapnia Code(s): J96.21 - ACUTE AND CHRONIC RESPIRATORY FAILURE WITH HYPOXIA; J96.22 - ACUTE AND CHRONIC RESPIRATORY FAILURE WITH HYPERCAPNIA (6) Acute on chronic respiratory failure with hypoxia and hypercapnia Code(s): J96.21 - ACUTE AND CHRONIC RESPIRATORY FAILURE WITH HYPOXIA; J96.22 - ACUTE AND CHRONIC RESPIRATORY FAILURE WITH HYPERCAPNIA (7) CHF exacerbation Code(s): I50.9 - HEART FAILURE, UNSPECIFIED Qualifiers: Heart failure type: unspecified Qualified Code(s): I50.9 - Heart failure, unspecified (8) COPD exacerbation Code(s): J44.1 - CHRONIC OBSTRUCTIVE PULMONARY DISEASE W (ACUTE) EXACERBATION (9) Dehydration Code(s): E86.0 - DEHYDRATION (10) Diastolic CHF Code(s): I50.30 - UNSPECIFIED DIASTOLIC (CONGESTIVE) HEART FAILURE (11) Elevated troponin Code(s): R79.89 - OTHER SPECIFIED ABNORMAL FINDINGS OF BLOOD CHEMISTRY (12) [place] cardiac risk >20% in next 10 years Code(s): Z91.89 - OTH PERSONAL RISK FACTORS, NOT ELSEWHERE CLASSIFIED (13) HLD (hyperlipidemia) Code(s): E78.5 - HYPERLIPIDEMIA, UNSPECIFIED (14) HTN (hypertension) Code(s): I10 - ESSENTIAL (PRIMARY) HYPERTENSION Qualifiers: Hypertension type: renovascular hypertension Qualified Code(s): I15.0 - Renovascular hypertension (15) Hypercapnic respiratory failure Code(s): J96.92 - RESPIRATORY FAILURE, UNSPECIFIED WITH HYPERCAPNIA Qualifiers: Chronicity: unspecified Qualified Code(s): J96.92 - Respiratory failure, unspecified with hypercapnia (16) Leukocytosis Code(s): D72.829 - ELEVATED WHITE BLOOD CELL COUNT, UNSPECIFIED (17) NSTEMI (non-ST elevated myocardial infarction) Code(s): I21.4 - NON-ST ELEVATION (NSTEMI) MYOCARDIAL INFARCTION (18) Obesity, morbid, BMI 50 or higher Code(s): E66.01 - MORBID (SEVERE) OBESITY DUE TO EXCESS CALORIES (19) Pneumonia Code(s): J18.9 - PNEUMONIA, UNSPECIFIED ORGANISM Qualifiers: Aspiration pneumonia type: unspecified Laterality: unspecified laterality Lung location: unspecified part of lung (20) RSV (acute bronchiolitis due to respiratory syncytial virus) Code(s): J21.0 - ACUTE BRONCHIOLITIS DUE TO RESPIRATORY SYNCYTIAL VIRUS (21) Respiratory failure Code(s): J96.90 - RESPIRATORY FAILURE, UNSP, UNSP W HYPOXIA OR HYPERCAPNIA Qualifiers: Chronicity: unspecified Respiratory failure complication: hypoxia and hypercapnia Qualified Code(s): J96.91 - Respiratory failure, unspecified with hypoxia; J96.92 - Respiratory failure, unspecified with hypercapnia (22) Diabetes Code(s): E11.9 - TYPE 2 DIABETES MELLITUS WITHOUT COMPLICATIONS Assessment/Plan Imp; Morbid obesity Respiratory failure hypercapnic Respiratory acidosis CHF diastolic decompensated new ekg changes Diabetes mellitus Hypertension Hyperlipidemia Edema COPD Plan; IV Lasix DVT plx ABX Steroids Lexiscan [facility]IB[facility]
[2019-11-23 11:41] LABS: PLATELET ESTIMATE NORMAL
--- NOTE | 2019-11-23 13:31 | PN ---
Progress Note (short form) - Note Progress Note: no fevers off bipap Vital Signs Period Temp Pulse Resp BP Sys/Garner Pulse Ox Last 24 Hr 97.3 F-98.3 F 69-78 20-20 129-140/71-83 92-98 cor-rrr lungs decreased bs at bases abd soft, nt ext +edema less erythema CBC, BMP 11/23/19 10:18 11/23/19 10:18 Microbiology 11/20/19 20:20 Blood - Peripheral Venous Blood Culture - Preliminary NO GROWTH OBTAINED AFTER 48 HOURS, INCUBATION TO CONTINUE FOR 3 DAYS. 11/20/19 20:10 Blood - Peripheral Venous Blood Culture - Preliminary NO GROWTH OBTAINED AFTER 48 HOURS, INCUBATION TO CONTINUE FOR 3 DAYS. 11/21/19 16:00 Urine For Antigen Detection Legionella Antigen - Final 11/21/19 16:00 Urine For Antigen Detection Streptococcus pneumoniae Antigen (M - Final Active Medications Chlorhexidine Gluconate (Hibiclens For Decolonization -) 1 applic TP HS [facility] Last Admin: 11/22/19 21:35 Dose: Not Given Documented by: Enoxaparin Sodium (Lovenox -) 40 mg SQ BID [facility] Last Admin: 11/23/19 11:10 Dose: 40 mg Documented by: Furosemide (Lasix Injection -) 40 mg IVPUSH DAILY [facility] Last Admin: 11/23/19 11:10 Dose: 40 mg Documented by: Ceftriaxone Sodium 2 gm/ (Dextrose) 100 mls @ 200 mls/hr IVPB DAILY [facility]; Protocol Last Admin: 11/23/19 11:10 Dose: 200 mls/hr Documented by: Insulin Aspart (Novolog Vial Sliding Scale -) 1 vial SQ ACHS [facility]; Protocol Last Admin: 11/23/19 11:30 Dose: Not Given Documented by: Methylprednisolone Sodium Succinate (Solu-Medrol -) 40 mg IVPUSH BID [facility] Last Admin: 11/23/19 11:10 Dose: 40 mg Documented by: Mupirocin (Bactroban Ointment (For Decolonization) -) 1 applic NS BID [facility] Stop: 11/26/19 09:59 Last Admin: 11/23/19 11:10 Dose: Not Given Documented by: Pantoprazole Sodium (Protonix Iv) 40 mg IVPUSH DAILY [facility] Last Admin: 11/23/19 11:10 Dose: 40 mg Documented by: a/p hypercapneic respiratory failure/COPD bilateral LE cellulitis morbid obesity bilateral infiltrates most likely congestion improved continue rocephin for celllulitis-switch to keflex when ready for discharge home please call back if needed
[2019-11-23] MEDS: CHLORHEXIDINE GLUCONATE 4% CLEANSER FOR DECOLONIZATION TP SCH (21:36)
[2019-11-24] MEDS: INSULIN SLIDING SCALE (NOVOLOG) 1 VIAL SQ SCH ×4 (06:02→21:36)
[2019-11-24 06:53] LABS: BASO % 0.2 % (0-2.0); HEMATOCRIT 41.9 % (32.4-45.2); HEMOGLOBIN 12.7 GM/dL (10.7-15.3); LYMPH % 4.7 % (8-40); MCH 24.7 pg (25.7-33.7); MCHC 30.3 g/dl (32.0-36.0); MEAN CELL VOLUME 81.5 fl (80-96); MEAN PLT VOLUME 9.9 fl (7.5-11.1); MONO % 3.2 % (3.8-10.2); NEUT % 91.9 % (42.8-82.8); PLATELET COUNT 165 K/MM3 (134-434); RBC 5.14 M/mm3 (3.60-5.2); WHITE BLOOD COUNT 8.4 K/mm3 (4.0-10.0)
[2019-11-24 07:17] LABS: BLOOD UREA NITROGEN 26.7 mg/dL (7-18); CALCIUM 8.8 mg/dL (8.5-10.1); CREATININE 0.8 mg/dL (0.55-1.3); POTASSIUM 4.2 mmol/L (3.5-5.1)
--- NOTE | 2019-11-24 07:47 | PN ---
Progress Note, Physician History of Present Illness: pulmonary alert,feeling better,less dysneic. - Current Medication List Current Medications: Active Medications Chlorhexidine Gluconate (Hibiclens For Decolonization -) 1 applic TP HS [facility] Last Admin: 11/23/19 21:36 Dose: Not Given Documented by: Enoxaparin Sodium (Lovenox -) 40 mg SQ BID [facility] Last Admin: 11/23/19 21:37 Dose: 40 mg Documented by: Furosemide (Lasix Injection -) 40 mg IVPUSH DAILY [facility] Last Admin: 11/23/19 11:10 Dose: 40 mg Documented by: Ceftriaxone Sodium 2 gm/ (Dextrose) 100 mls @ 200 mls/hr IVPB DAILY [facility]; Protocol Last Admin: 11/23/19 11:10 Dose: 200 mls/hr Documented by: Insulin Aspart (Novolog Vial Sliding Scale -) 1 vial SQ [facility]; Protocol Last Admin: 11/24/19 06:02 Dose: Not Given Documented by: Methylprednisolone Sodium Succinate (Solu-Medrol -) 40 mg IVPUSH BID [facility] Last Admin: 11/23/19 21:37 Dose: 40 mg Documented by: Mupirocin (Bactroban Ointment (For Decolonization) -) 1 applic NS BID [facility] Stop: 11/26/19 09:59 Last Admin: 11/23/19 21:36 Dose: Not Given Documented by: Pantoprazole Sodium (Protonix Iv) 40 mg IVPUSH DAILY [facility] Last Admin: 11/23/19 11:10 Dose: 40 mg Documented by: - Objective Vital Signs: Vital Signs Temperature 97.8 F 11/24/19 05:59 Pulse Rate 74 11/24/19 05:59 Respiratory Rate 20 11/24/19 05:59 Blood Pressure 140/77 11/24/19 05:59 O2 Sat by Pulse Oximetry (%) 92 L 11/24/19 02:00 Constitutional: Yes: Calm, Obese Eyes: Yes: WNL HENT: Yes: WNL Neck: Yes: WNL Cardiovascular: Yes: Regular Rate and Rhythm, S1, S2 Respiratory: Yes: Diminished Gastrointestinal: Yes: Normal Bowel Sounds, Soft Extremities: Yes: WNL Edema: Yes Labs: CBC, BMP 11/24/19 05:20 INR, PTT INR 1.08 (0.83-1.09) 11/20/19 20:10 Assessment/Plan A/P Acute on Chronic Hypoxic and Hypercapneic Respiratory Failure improving Cellulitis Acute on Chronic Diastolic Heart Failure LEONIDES/[facility] HTN DM Morbid Obesity - lasix - monitor urine output, creatinine - O2 to keep SpO2 >90% - BiPAP at night and PRN during day - continue antibiotics - inhaled bronchodilators - DVT prophylaxis DR GUERRERO
--- NOTE | 2019-11-24 07:51 | PN ---
Progress Note, Physician - Current Medication List Current Medications: Active Medications Chlorhexidine Gluconate (Hibiclens For Decolonization -) 1 applic TP HS [facility] Last Admin: 11/23/19 21:36 Dose: Not Given Documented by: Enoxaparin Sodium (Lovenox -) 40 mg SQ BID [facility] Last Admin: 11/23/19 21:37 Dose: 40 mg Documented by: Furosemide (Lasix Injection -) 40 mg IVPUSH DAILY [facility] Last Admin: 11/23/19 11:10 Dose: 40 mg Documented by: Ceftriaxone Sodium 2 gm/ (Dextrose) 100 mls @ 200 mls/hr IVPB DAILY [facility]; Protocol Last Admin: 11/23/19 11:10 Dose: 200 mls/hr Documented by: Insulin Aspart (Novolog Vial Sliding Scale -) 1 vial SQ [facility]; Protocol Last Admin: 11/24/19 06:02 Dose: Not Given Documented by: Methylprednisolone Sodium Succinate (Solu-Medrol -) 40 mg IVPUSH BID [facility] Last Admin: 11/23/19 21:37 Dose: 40 mg Documented by: Mupirocin (Bactroban Ointment (For Decolonization) -) 1 applic NS BID [facility] Stop: 11/26/19 09:59 Last Admin: 11/23/19 21:36 Dose: Not Given Documented by: Pantoprazole Sodium (Protonix Iv) 40 mg IVPUSH DAILY [facility] Last Admin: 11/23/19 11:10 Dose: 40 mg Documented by: - Objective Vital Signs: Vital Signs Temperature 97.8 F 11/24/19 05:59 Pulse Rate 74 11/24/19 05:59 Respiratory Rate 20 11/24/19 05:59 Blood Pressure 140/77 11/24/19 05:59 O2 Sat by Pulse Oximetry (%) 92 L 11/24/19 02:00 Cardiovascular: Yes: S1, S2 Respiratory: Yes: Regular, CTA Bilaterally Gastrointestinal: Yes: Normal Bowel Sounds, Soft Edema: Yes Labs: CBC, BMP 11/24/19 05:20 INR, PTT INR 1.08 (0.83-1.09) 11/20/19 20:10 Problem List - Problems (1) CHF (congestive heart failure) Assessment/Plan: iv lasix follow labs stress test ordered by cardio Code(s): I50.9 - HEART FAILURE, UNSPECIFIED Qualifiers: Heart failure type: unspecified Heart failure chronicity: acute on chronic Qualified Code(s): I50.9 - Heart failure, unspecified (2) Cellulitis Assessment/Plan: iv abx --to po on dc id on case Code(s): L03.90 - CELLULITIS, UNSPECIFIED Qualifiers: Site of cellulitis: extremity Site of cellulitis of extremity: lower extremity Laterality: unspecified laterality Qualified Code(s): L03.119 - Cellulitis of unspecified part of limb (3) Acute on chronic respiratory failure with hypoxia and hypercapnia Assessment/Plan: bipap per pulm solumedrol to po prednisone Code(s): J96.21 - ACUTE AND CHRONIC RESPIRATORY FAILURE WITH HYPOXIA; J96.22 - ACUTE AND CHRONIC RESPIRATORY FAILURE WITH HYPERCAPNIA (4) HTN (hypertension) Assessment/Plan: controlled Vital Signs Period Temp Pulse Resp BP Sys/Garner Pulse Ox Last 24 Hr 97.3 F-98.3 F 69-80 20-20 129-140/71-83 92-98 Code(s): I10 - ESSENTIAL (PRIMARY) HYPERTENSION Qualifiers: Hypertension type: renovascular hypertension Qualified Code(s): I15.0 - Renovascular hypertension
[2019-11-24] MEDS ORDERED: DEXTROSE 5%-WATER 100 ML IVPB ONE (09:29)
[2019-11-24] MEDS: MUPIROCIN 2% TOPICAL OINTMENT FOR DECOLONIZATION NS SCH ×2 (10:00→21:34)
[2019-11-24] MEDS: CEFTRIAXONE 2 GM in DEXTROSE 5%-WATER 100 ML IVPB SCH (10:01)
[2019-11-24] MEDS: predniSONE 20 MG TABLET (UD) PO SCH (10:02)
[2019-11-24] MEDS: FUROSEMIDE 40 MG/4 ML INJECTABLE VIAL IVPUSH SCH (10:02)
[2019-11-24] MEDS: PANTOPRAZOLE SODIUM 40 MG VIAL IVPUSH SCH (10:02)
[2019-11-24 10:03] LABS: ANISOCYTOSIS 0; MACROCYTOSIS 0; PLATELET ESTIMATE NORMAL
[2019-11-24] MEDS: ENOXAPARIN NA (PORCINE) 40 MG/0.4 ML DISP.SYRIN SQ SCH ×2 (10:03→21:35)
--- NOTE | 2019-11-24 13:40 | PN ---
Progress Note, Physician History of Present Illness: 69 yo F pmh HTN, HLD, CHF, DM, morbid obesity, presenting with 2 weeks of swelling, increased SOB, warm red swollen legs. Patient visited her PCP and was given PO antibiotics 2 weeks ago, redness and warmth improved but recurred when antibiotic course was completed. She also endorses decreased exercise tolerance, only able to walk across the room before becoming short of breath and fatigued, unable to lay flat at night without difficulty breathing so she sleeps at an incline. She takes Lasix 40mg daily for her edema. Denies fevers, chills, vomiting (intermittent nausea), denies difficulty breathing at rest, chest pain, headache, pain with ambulation. States that there is a tightness in her lower abdomen as she has been gaining weight and noticed redness that hsa expanded up the left thigh and across her lower abdomen. PMH Negative MIBI stress- Mar 2018 at [facility] Ongoing medical problems Diabetes mellitus Hypertension Hyperlipidemia Diastolic CHF Edema COPD NSTEMI Respiratory failure - Current Medication List Current Medications: Active Medications Chlorhexidine Gluconate (Hibiclens For Decolonization -) 1 applic TP HS [facility] Last Admin: 11/23/19 21:36 Dose: Not Given Documented by: Enoxaparin Sodium (Lovenox -) 40 mg SQ BID [facility] Last Admin: 11/24/19 10:03 Dose: 40 mg Documented by: Furosemide (Lasix Injection -) 40 mg IVPUSH DAILY [facility] Last Admin: 11/24/19 10:02 Dose: 40 mg Documented by: Ceftriaxone Sodium 2 gm/ (Dextrose) 100 mls @ 200 mls/hr IVPB DAILY [facility]; Protocol Last Admin: 11/24/19 10:01 Dose: 200 mls/hr Documented by: Insulin Aspart (Novolog Vial Sliding Scale -) 1 vial SQ ACHS [facility]; Protocol Last Admin: 11/24/19 12:20 Dose: Not Given Documented by: Mupirocin (Bactroban Ointment (For Decolonization) -) 1 applic NS BID [facility] Stop: 11/26/19 09:59 Last Admin: 11/24/19 10:00 Dose: Not Given Documented by: Pantoprazole Sodium (Protonix Iv) 40 mg IVPUSH DAILY [facility] Last Admin: 11/24/19 10:02 Dose: 40 mg Documented by: Prednisone (Deltasone -) 40 mg PO DAILY [facility] Last Admin: 11/24/19 10:02 Dose: 40 mg Documented by: - Objective Vital Signs: Vital Signs Temperature 98 F 11/24/19 09:00 Pulse Rate 64 11/24/19 09:00 Respiratory Rate 11/24/19 09:00 Blood Pressure 148/64 11/24/19 09:00 O2 Sat by Pulse Oximetry (%) 94 L 11/24/19 09:00 Eyes: Yes: WNL, Conjunctiva Clear, EOM Intact HENT: Yes: WNL, Atraumatic, Normocephalic Neck: Yes: WNL, Supple, Trachea Midline Cardiovascular: Yes: WNL, Regular Rate and Rhythm Respiratory: Yes: WNL, Regular, CTA Bilaterally Gastrointestinal: Yes: WNL, Normal Bowel Sounds Genitourinary: Yes: WNL Musculoskeletal: Yes: WNL Extremities: Yes: Erythema Edema: Yes Integumentary: Yes: WNL Neurological: Yes: WNL, Alert, Oriented ...Motor Strength: WNL Psychiatric: Yes: WNL Labs: CBC, BMP 11/24/19 05:20 11/24/19 05:20 INR, PTT INR 1.08 (0.83-1.09) 11/20/19 20:10 Problem List - Problems (1) CHF (congestive heart failure) Code(s): I50.9 - HEART FAILURE, UNSPECIFIED Qualifiers: Heart failure type: unspecified Heart failure chronicity: acute on chronic Qualified Code(s): I50.9 - Heart failure, unspecified (2) Cellulitis Code(s): L03.90 - CELLULITIS, UNSPECIFIED Qualifiers: Site of cellulitis: extremity Site of cellulitis of extremity: lower extremity Laterality: unspecified laterality Qualified Code(s): L03.119 - Cellulitis of unspecified part of limb (3) JUANCARLOS (acute kidney injury) Code(s): N17.9 - ACUTE KIDNEY FAILURE, UNSPECIFIED (4) Acute on chronic diastolic (congestive) heart failure Code(s): I50.33 - ACUTE ON CHRONIC DIASTOLIC (CONGESTIVE) HEART FAILURE (5) Acute on chronic respiratory failure with hypoxia and hypercapnia Code(s): J96.21 - ACUTE AND CHRONIC RESPIRATORY FAILURE WITH HYPOXIA; J96.22 - ACUTE AND CHRONIC RESPIRATORY FAILURE WITH HYPERCAPNIA (6) Acute on chronic respiratory failure with hypoxia and hypercapnia Code(s): J96.21 - ACUTE AND CHRONIC RESPIRATORY FAILURE WITH HYPOXIA; J96.22 - ACUTE AND CHRONIC RESPIRATORY FAILURE WITH HYPERCAPNIA (7) CHF exacerbation Code(s): I50.9 - HEART FAILURE, UNSPECIFIED Qualifiers: Heart failure type: unspecified Qualified Code(s): I50.9 - Heart failure, unspecified (8) COPD exacerbation Code(s): J44.1 - CHRONIC OBSTRUCTIVE PULMONARY DISEASE W (ACUTE) EXACERBATION (9) Dehydration Code(s): E86.0 - DEHYDRATION (10) Diastolic CHF Code(s): I50.30 - UNSPECIFIED DIASTOLIC (CONGESTIVE) HEART FAILURE (11) Elevated troponin Code(s): R79.89 - OTHER SPECIFIED ABNORMAL FINDINGS OF BLOOD CHEMISTRY (12) [place] cardiac risk >20% in next 10 years Code(s): Z91.89 - OT PERSONAL RISK FACTORS, NOT ELSEWHERE CLASSIFIED (13) HLD (hyperlipidemia) Code(s): E78.5 - HYPERLIPIDEMIA, UNSPECIFIED (14) HTN (hypertension) Code(s): I10 - ESSENTIAL (PRIMARY) HYPERTENSION Qualifiers: Hypertension type: renovascular hypertension Qualified Code(s): I15.0 - Renovascular hypertension (15) Hypercapnic respiratory failure Code(s): J96.92 - RESPIRATORY FAILURE, UNSPECIFIED WITH HYPERCAPNIA Qualifiers: Chronicity: unspecified Qualified Code(s): J96.92 - Respiratory failure, unspecified with hypercapnia (16) Leukocytosis Code(s): D72.829 - ELEVATED WHITE BLOOD CELL COUNT, UNSPECIFIED (17) NSTEMI (non-ST elevated myocardial infarction) Code(s): I21.4 - NON-ST ELEVATION (NSTEMI) MYOCARDIAL INFARCTION (18) Obesity, morbid, BMI 50 or higher Code(s): E66.01 - MORBID (SEVERE) OBESITY DUE TO EXCESS CALORIES (19) Pneumonia Code(s): J18.9 - PNEUMONIA, UNSPECIFIED ORGANISM Qualifiers: Aspiration pneumonia type: unspecified Laterality: unspecified laterality Lung location: unspecified part of lung (20) RSV (acute bronchiolitis due to respiratory syncytial virus) Code(s): J21.0 - ACUTE BRONCHIOLITIS DUE TO RESPIRATORY SYNCYTIAL VIRUS (21) Respiratory failure Code(s): J96.90 - RESPIRATORY FAILURE, UNSP, UNSP W HYPOXIA OR HYPERCAPNIA Qualifiers: Chronicity: unspecified Respiratory failure complication: hypoxia and hypercapnia Qualified Code(s): J96.91 - Respiratory failure, unspecified with hypoxia; J96.92 - Respiratory failure, unspecified with hypercapnia (22) Diabetes Code(s): E11.9 - TYPE 2 DIABETES MELLITUS WITHOUT COMPLICATIONS Assessment/Plan Imp; Morbid obesity Respiratory failure hypercapnic Respiratory acidosis CHF diastolic decompensated new ekg changes Diabetes mellitus Hypertension Hyperlipidemia Edema COPD Plan; change IV Lasix to PO 40 BID DVT plx ABX Steroids Refused Lexiscan MIBI [facility] understands risks of NE d/c telemetry
[2019-11-24] MEDS: FUROSEMIDE 40 MG TABLET (FP) PO SCH (14:03)
[2019-11-24] MEDS: CHLORHEXIDINE GLUCONATE 4% CLEANSER FOR DECOLONIZATION TP SCH (21:34)
[2019-11-24 22:52] LABS: BLOOD UREA NITROGEN 30.1 mg/dL (7-18); CALCIUM 8.9 mg/dL (8.5-10.1); CREATININE 0.8 mg/dL (0.55-1.3); POTASSIUM 4.3 mmol/L (3.5-5.1)
[2019-11-25] MEDS: INSULIN SLIDING SCALE (NOVOLOG) 1 VIAL SQ SCH ×2 (06:16→12:47)
[2019-11-25] MEDS: FUROSEMIDE 40 MG TABLET (FP) PO SCH ×2 (06:16→15:31)
--- NOTE | 2019-11-25 07:51 | DS ---
Physical Examination Vital Signs: Vital Signs Temperature 97.1 F L 11/25/19 06:00 Pulse Rate 70 11/25/19 06:00 Respiratory Rate 20 11/25/19 06:00 Blood Pressure 144/87 11/25/19 06:00 O2 Sat by Pulse Oximetry (%) 97 11/25/19 05:10 Cardiovascular: Yes: Regular Rate and Rhythm Respiratory: Yes: Regular, CTA Bilaterally Gastrointestinal: Yes: Soft Labs: CBC, BMP 11/24/19 05:20 11/24/19 22:15 Discharge Summary Problems reviewed: Yes Reason For Visit: CONGESTIVE HEART FAILURE,CELLULITIS Current Active Problems CHF (congestive heart failure) (Acute) Cellulitis (Acute) Hospital Course: - Problems (1) CHF (congestive heart failure) Assessment/Plan: iv lasix--po follow labs stress test ordered by cardio Code(s): I50.9 - HEART FAILURE, UNSPECIFIED Qualifiers: Heart failure type: unspecified Heart failure chronicity: acute on chronic Qualified Code(s): I50.9 - Heart failure, unspecified (2) Cellulitis Assessment/Plan: iv abx --to po on dc id on case Code(s): L03.90 - CELLULITIS, UNSPECIFIED Qualifiers: Site of cellulitis: extremity Site of cellulitis of extremity: lower extremity Laterality: unspecified laterality Qualified Code(s): L03.119 - Cellulitis of unspecified part of limb (3) Acute on chronic respiratory failure with hypoxia and hypercapnia Assessment/Plan: bipap per pulm solumedrol to po prednisone Code(s): J96.21 - ACUTE AND CHRONIC RESPIRATORY FAILURE WITH HYPOXIA; J96.22 - ACUTE AND CHRONIC RESPIRATORY FAILURE WITH HYPERCAPNIA (4) HTN (hypertension) Assessment/Plan: controlled Vital Signs Period Temp Pulse Resp BP Sys/Garner Pulse Ox Last 24 Hr 97.3 F-98.3 F 69-80 20-20 129-140/71-83 92-98 Code(s): I10 - ESSENTIAL (PRIMARY) HYPERTENSION Qualifiers: Hypertension type: renovascular hypertension Qualified Code(s): I15.0 - Renovascular hypertension pt will follow up with cardiology next week refusing stress test Condition: Guarded - Instructions Referrals: Papito Inman MD [Primary Care Provider] - Disposition: VNS/HOME HEALTH CARE - Home Medications Comprehensive Discharge Medication List: Ambulatory Orders Aspirin [ASA -] 81 mg PO DAILY #30 tab.chew 04/07/18 Insulin Glargine,Hum.rec.anlog [Basaglar Kwikpen U-100] 10 unit SQ DAILY #1 insuln.pen 04/07/18 Atorvastatin Ca [Lipitor] 40 mg PO HS tablet 02/03/19 Gabapentin [Neurontin -] 300 mg PO TID #30 capsule 02/03/19 Losartan Potassium [Cozaar -] 50 mg PO DAILY #30 tablet 02/03/19 Nystatin/Triamcinolone Top Cr [Mycolog II -] 1 applic TP BID applic 02/03/19 Pantoprazole Sodium [Protonix -] 40 mg PO DAILY tablet.ec 02/03/19 Potassium Chloride [K-Dur -] 20 meq PO BID #10 tablet.er 02/03/19 Albuterol Sulfate [Proair Hfa] 2 puff IH Q6H PRN #1 hfa.aer.ad 02/04/19 Albuterol 0.083% Nebulizer Gisselle [Ventolin 0.083% Nebulizer Soln -] 1 neb NEB Q4H #1 box 02/06/19 Budesonide/Formeterol Fumarate [SYMBICORT 160/4.5mcg -] 2 inh PO BID #1 cannister 02/06/19 Gabapentin 300 mg PO TID #90 capsule 02/06/19 Polyethylene Glycol 3350 [Miralax 119 gm Btl -] 17 gm PO BID #1 bottle 02/06/19 Cephalexin Monohydrate [Keflex -] 500 mg PO Q8H #21 capsule 11/25/19 Furosemide [Lasix -] 80 mg PO DAILY #30 tablet 11/25/19 Prednisone 10 mg PO DAILY #20 tab.ds.pk 11/25/19
--- NOTE | 2019-11-25 07:58 | PN ---
Progress Note, Physician History of Present Illness: pulmonary alert,comfortable,-sob - Current Medication List Current Medications: Active Medications Chlorhexidine Gluconate (Hibiclens For Decolonization -) 1 applic TP HS [facility] Last Admin: 11/24/19 21:34 Dose: Not Given Documented by: Enoxaparin Sodium (Lovenox -) 40 mg SQ BID [facility] Last Admin: 11/24/19 21:35 Dose: 40 mg Documented by: Furosemide (Lasix -) 40 mg PO BID@0600,1400 [facility] Last Admin: 11/25/19 06:16 Dose: 40 mg Documented by: Ceftriaxone Sodium 2 gm/ (Dextrose) 100 mls @ 200 mls/hr IVPB DAILY [facility]; Protocol Last Admin: 11/24/19 10:01 Dose: 200 mls/hr Documented by: Insulin Aspart (Novolog Vial Sliding Scale -) 1 vial SQ ACHS [facility]; Protocol Last Admin: 11/25/19 06:16 Dose: Not Given Documented by: Mupirocin (Bactroban Ointment (For Decolonization) -) 1 applic NS BID [facility] Stop: 11/26/19 09:59 Last Admin: 11/24/19 21:34 Dose: Not Given Documented by: Pantoprazole Sodium (Protonix Iv) 40 mg IVPUSH DAILY [facility] Last Admin: 11/24/19 10:02 Dose: 40 mg Documented by: Prednisone (Deltasone -) 40 mg PO DAILY [facility] Last Admin: 11/24/19 10:02 Dose: 40 mg Documented by: - Objective Vital Signs: Vital Signs Temperature 97.1 F L 11/25/19 06:00 Pulse Rate 70 11/25/19 06:00 Respiratory Rate 20 11/25/19 06:00 Blood Pressure 144/87 11/25/19 06:00 O2 Sat by Pulse Oximetry (%) 97 11/25/19 05:10 Constitutional: Yes: Calm, Obese Eyes: Yes: WNL HENT: Yes: WNL Neck: Yes: WNL Cardiovascular: Yes: Regular Rate and Rhythm, S1, S2 Respiratory: Yes: Diminished Gastrointestinal: Yes: Normal Bowel Sounds, Soft Extremities: Yes: WNL Edema: Yes ( improving) Labs: CBC, BMP Assessment/Plan A/P Acute on Chronic Hypoxic and Hypercapneic Respiratory Failure improved Acute on Chronic Diastolic Heart Failure LEONIDES/OHS HTN DM Morbid Obesity - lasix - O2 - BiPAP at night and PRN during day - antibiotics - inhaled bronchodilators - DVT prophylaxis DR GUERRERO
[2019-11-25] MEDS ORDERED: DEXTROSE 5%-WATER 100 ML IVPB ONE (09:00)
[2019-11-25 10:24] VITALS: BP 132/76; PULSE 83; TEMP 97.9
[2019-11-25] MEDS: PANTOPRAZOLE SODIUM 40 MG VIAL IVPUSH SCH (10:25)
[2019-11-25] MEDS: CEFTRIAXONE 2 GM in DEXTROSE 5%-WATER 100 ML IVPB SCH (10:25)
[2019-11-25] MEDS: ENOXAPARIN NA (PORCINE) 40 MG/0.4 ML DISP.SYRIN SQ SCH (10:25)
[2019-11-25] MEDS: predniSONE 20 MG TABLET (UD) PO SCH (10:25)
[2019-11-25] MEDS: MUPIROCIN 2% TOPICAL OINTMENT FOR DECOLONIZATION NS SCH (10:26)
--- NOTE | 2019-11-25 12:05 | PN ---
Progress Note, Physician History of Present Illness: 69 yo F pmh HTN, HLD, CHF, DM, morbid obesity, presenting with 2 weeks of swelling, increased SOB, warm red swollen legs. Patient visited her PCP and was given PO antibiotics 2 weeks ago, redness and warmth improved but recurred when antibiotic course was completed. She also endorses decreased exercise tolerance, only able to walk across the room before becoming short of breath and fatigued, unable to lay flat at night without difficulty breathing so she sleeps at an incline. She takes Lasix 40mg daily for her edema. Denies fevers, chills, vomiting (intermittent nausea), denies difficulty breathing at rest, chest pain, headache, pain with ambulation. States that there is a tightness in her lower abdomen as she has been gaining weight and noticed redness that hsa expanded up the left thigh and across her lower abdomen. PMH Negative MIBI stress- Mar 2018 at [facility] Ongoing medical problems Diabetes mellitus Hypertension Hyperlipidemia Diastolic CHF Edema COPD NSTEMI Respiratory failure - Current Medication List Current Medications: Active Medications Chlorhexidine Gluconate (Hibiclens For Decolonization -) 1 applic TP HS [facility] Last Admin: 11/24/19 21:34 Dose: Not Given Documented by: Enoxaparin Sodium (Lovenox -) 40 mg SQ BID [facility] Last Admin: 11/25/19 10:25 Dose: 40 mg Documented by: Furosemide (Lasix -) 40 mg PO BID@0600,1400 [facility] Last Admin: 11/25/19 06:16 Dose: 40 mg Documented by: Ceftriaxone Sodium 2 gm/ (Dextrose) 100 mls @ 200 mls/hr IVPB DAILY [facility]; Protocol Last Admin: 11/25/19 10:25 Dose: 200 mls/hr Documented by: Insulin Aspart (Novolog Vial Sliding Scale -) 1 vial SQ ACHS [facility]; Protocol Last Admin: 11/25/19 06:16 Dose: Not Given Documented by: Mupirocin (Bactroban Ointment (For Decolonization) -) 1 applic NS BID [facility] Stop: 11/26/19 09:59 Last Admin: 11/25/19 10:26 Dose: Not Given Documented by: Pantoprazole Sodium (Protonix Iv) 40 mg IVPUSH DAILY [facility] Last Admin: 11/25/19 10:25 Dose: 40 mg Documented by: Prednisone (Deltasone -) 40 mg PO DAILY [facility] Last Admin: 11/25/19 10:25 Dose: 40 mg Documented by: - Objective Vital Signs: Vital Signs Temperature 97.9 F 11/25/19 10:00 Pulse Rate 83 11/25/19 10:00 Respiratory Rate 21 H 11/25/19 10:00 Blood Pressure 132/76 11/25/19 10:00 O2 Sat by Pulse Oximetry (%) 92 L 11/25/19 10:00 Eyes: Yes: WNL, Conjunctiva Clear, EOM Intact HENT: Yes: WNL, Atraumatic, Normocephalic Neck: Yes: WNL, Supple, Trachea Midline Cardiovascular: Yes: WNL, Regular Rate and Rhythm Respiratory: Yes: WNL, Regular, CTA Bilaterally Gastrointestinal: Yes: WNL, Normal Bowel Sounds Genitourinary: Yes: WNL Musculoskeletal: Yes: WNL Extremities: Yes: Erythema Edema: Yes Integumentary: Yes: WNL Neurological: Yes: WNL, Alert, Oriented ...Motor Strength: WNL Psychiatric: Yes: WNL Labs: CBC, BMP 11/24/19 05:20 11/24/19 22:15 INR, PTT INR 1.08 (0.83-1.09) 11/20/19 20:10 Problem List - Problems (1) CHF (congestive heart failure) Code(s): I50.9 - HEART FAILURE, UNSPECIFIED Qualifiers: Heart failure type: unspecified Heart failure chronicity: acute on chronic Qualified Code(s): I50.9 - Heart failure, unspecified (2) Cellulitis Code(s): L03.90 - CELLULITIS, UNSPECIFIED Qualifiers: Site of cellulitis: extremity Site of cellulitis of extremity: lower extremity Laterality: unspecified laterality Qualified Code(s): L03.119 - Cellulitis of unspecified part of limb (3) JUANCARLOS (acute kidney injury) Code(s): N17.9 - ACUTE KIDNEY FAILURE, UNSPECIFIED (4) Acute on chronic diastolic (congestive) heart failure Code(s): I50.33 - ACUTE ON CHRONIC DIASTOLIC (CONGESTIVE) HEART FAILURE (5) Acute on chronic respiratory failure with hypoxia and hypercapnia Code(s): J96.21 - ACUTE AND CHRONIC RESPIRATORY FAILURE WITH HYPOXIA; J96.22 - ACUTE AND CHRONIC RESPIRATORY FAILURE WITH HYPERCAPNIA (6) Acute on chronic respiratory failure with hypoxia and hypercapnia Code(s): J96.21 - ACUTE AND CHRONIC RESPIRATORY FAILURE WITH HYPOXIA; J96.22 - ACUTE AND CHRONIC RESPIRATORY FAILURE WITH HYPERCAPNIA (7) CHF exacerbation Code(s): I50.9 - HEART FAILURE, UNSPECIFIED Qualifiers: Heart failure type: unspecified Qualified Code(s): I50.9 - Heart failure, unspecified (8) COPD exacerbation Code(s): J44.1 - CHRONIC OBSTRUCTIVE PULMONARY DISEASE W (ACUTE) EXACERBATION (9) Dehydration Code(s): E86.0 - DEHYDRATION (10) Diastolic CHF Code(s): I50.30 - UNSPECIFIED DIASTOLIC (CONGESTIVE) HEART FAILURE (11) Elevated troponin Code(s): R79.89 - OTHER SPECIFIED ABNORMAL FINDINGS OF BLOOD CHEMISTRY (12) Hollins cardiac risk >20% in next 10 years Code(s): Z91.89 - OT PERSONAL RISK FACTORS, NOT ELSEWHERE CLASSIFIED (13) HLD (hyperlipidemia) Code(s): E78.5 - HYPERLIPIDEMIA, UNSPECIFIED (14) HTN (hypertension) Code(s): I10 - ESSENTIAL (PRIMARY) HYPERTENSION Qualifiers: Hypertension type: renovascular hypertension Qualified Code(s): I15.0 - Renovascular hypertension (15) Hypercapnic respiratory failure Code(s): J96.92 - RESPIRATORY FAILURE, UNSPECIFIED WITH HYPERCAPNIA Qualifiers: Chronicity: unspecified Qualified Code(s): J96.92 - Respiratory failure, unspecified with hypercapnia (16) Leukocytosis Code(s): D72.829 - ELEVATED WHITE BLOOD CELL COUNT, UNSPECIFIED (17) NSTEMI (non-ST elevated myocardial infarction) Code(s): I21.4 - NON-ST ELEVATION (NSTEMI) MYOCARDIAL INFARCTION (18) Obesity, morbid, BMI 50 or higher Code(s): E66.01 - MORBID (SEVERE) OBESITY DUE TO EXCESS CALORIES (19) Pneumonia Code(s): J18.9 - PNEUMONIA, UNSPECIFIED ORGANISM Qualifiers: Aspiration pneumonia type: unspecified Laterality: unspecified laterality Lung location: unspecified part of lung (20) RSV (acute bronchiolitis due to respiratory syncytial virus) Code(s): J21.0 - ACUTE BRONCHIOLITIS DUE TO RESPIRATORY SYNCYTIAL VIRUS (21) Respiratory failure Code(s): J96.90 - RESPIRATORY FAILURE, UNSP, UNSP W HYPOXIA OR HYPERCAPNIA Qualifiers: Chronicity: unspecified Respiratory failure complication: hypoxia and h ypercapnia Qualified Code(s): J96.91 - Respiratory failure, unspecified with hypoxia; J96.92 - Respiratory failure, unspecified with hypercapnia (22) Diabetes Code(s): E11.9 - TYPE 2 DIABETES MELLITUS WITHOUT COMPLICATIONS Assessment/Plan Imp; Morbid obesity Respiratory failure hypercapnic Respiratory acidosis CHF diastolic decompensated new ekg changes Diabetes mellitus Hypertension Hyperlipidemia Edema COPD Plan; change IV Lasix to PO 40 BID DVT plx ABX Steroids Refused Lexiscan MIBI ST understands risks of PR d/c telemetry
== END 2019-11-25 15:32 | disposition home health service (06) | DRG 291 ==
LOC: JER 16:24 → JERBED 19:48 → JICU 11-21 04:32 → J4W 11-22 12:26
PROVIDERS: ADMIT Internal Medicine; ATTEND Family Medicine
DX: I11.0 Hypertensive heart disease with heart failure (principal); J96.21 Acute and chronic respiratory failure with hypoxia; J96.22 Acute and chronic respiratory failure with hypercapnia; L03.116 Cellulitis of left lower limb; L03.115 Cellulitis of right lower limb; E46 Unspecified protein-calorie malnutrition; Z68.43 Body mass index [BMI] 50.0-59.9, adult; J44.1 Chronic obstructive pulmonary disease with (acute) exacerbation; E87.2 Acidosis; E66.01 Morbid (severe) obesity due to excess calories; I50.33 Acute on chronic diastolic (congestive) heart failure; K21.9 Gastro-esophageal reflux disease without esophagitis; E78.00 Pure hypercholesterolemia, unspecified; E11.9 Type 2 diabetes mellitus without complications; D72.829 Elevated white blood cell count, unspecified; I25.2 Old myocardial infarction; G47.30 Sleep apnea, unspecified; Z99.81 Dependence on supplemental oxygen
CPT/HCPCS: 36415; 36600; 71045-TC-FY; 80048; 80053; 81003; 82550; 82553; 82803; 82962; 83735; 83880; 84100; 84484; 85025; 85610; 87040; 87899; 93005; 93010; 93306-TC; 94660; 99285-25; U0003